=== PATIENT | female | born 1955 | race African-American/Black ===

== ENCOUNTER → 2016-09-23 | Outpatient (CLI) | payer MEDICARE, OTHER ==
[2016-03-08 12:30] VITALS: BP 134/74
[~2016-09-23] MED LIST: AMLO10TA2 PO; HYDR-2678 PO; INSU100C4 SQ; LORA0.5T96 PO; OMEP40CA5 PO; PROAIR HFA8.5 GM IH; RANI150T2 PO; SIMV10TA3 PO
--- NOTE | 2016-09-23 17:47 | RAD ---
EXAM: DIGITAL SCREEN BILAT W/CAD HISTORY: Routine Screening. COMPARISON: None available Standard mammographic views are obtained of the bilateral breasts. This study was interpreted with the benefit of Computerized Aided Detection (CAD). FINDINGS: The breast parenchyma Is heterogenously dense, which could reduce sensitivity of mammography. Breast parenchyma level III.. There is no definite spiculated mass identified. There are a few scattered calcifications. IMPRESSION: No definite new suspicious mass. BI-RADS CATEGORY: 2 BENIGN FINDING RECOMMENDED FOLLOW-UP: 12M 12 MONTH FOLLOW-UP PQRS compliance statement: Patient information was entered into a reminder system with a target due date for the next mammogram. Mammography is a sensitive method for finding small breast cancers, but it does not detect them all and is not a substitute for careful clinical examination. A negative mammogram does not negate a clinically suspicious finding and should not result in delay in biopsying a clinically suspicious abnormality. "Our facility is accredited by the [employer] Mammography Program."
== END | disposition home or self-care (01) ==
LOC: MAMMO 15:02
PROVIDERS: ATTEND Family Medicine
DX: Z12.31 Encounter for screening mammogram for malignant neoplasm of breast (principal)
CPT/HCPCS: G0202; 77067

== ENCOUNTER → 2017-10-17 | Outpatient (CLI) | payer MEDICARE, OTHER | END | disposition home or self-care (01) | LOC: MAMMO 14:27 | DX: Z12.31 Encounter for screening mammogram for malignant neoplasm of breast (principal) | CPT/HCPCS: 77063; 77067 ==

== ENCOUNTER 2018-07-16 00:03 | Inpatient (IN) | payer MEDICARE, OTHER ==
[~2018-07-16] VITALS: Ht 162.6 cm; Wt 45.4 kg
[~2018-07-16 00:03] MED LIST changes: -AMLO10TA2 PO; +AMLO10TA6 PO; +AMLO5TAB7 PO; +HYDR-2761 PO; +LEVO500T59 PO; +METR500T PO; +RANI150C PO
[2018-07-16] MEDS ORDERED: LABETALOL 20 MG/4 ML DISP.SYRIN. IVP ONE (00:30)
--- NOTE | 2018-07-16 00:47 | PHYS DOC ---
Past Medical History Past Medical History: Asthma, Diabetes-Type II, GERD, High Cholesterol, Hypertension, Other Additional Past Medical Histor: brain aneurysm Past Surgical History: Cholecystectomy, Hysterectomy, Other Additional Past Surgical Histo: perforated ulcer Alcohol Use: None Drug Use: None Adult General Chief Complaint Chief Complaint: SEIZURE HPI HPI Patient is a 62-year-old female who presents via EMS with report of having had 2 seizure episodes prior to arrival. Medics indicate that patient did have one seizure during their evaluation and patient was given 5 of Versed IV by medics while in route. Patient's seizure resolved after Versed and they state that patient has been postictal since. Additional history is limited due to post ictal state. Review of Systems Review of Systems Neurologic: Positive seizure activity[] Unable to fully assess review of systems due to postictal state. Current Medications Current Medications Current Medications Medications (Trade) Dose Ordered Sig/Zee Start Time Stop Time Status Last Admin Dose Admin Labetalol HCl (Normodyne Iv Push) 10 mg 1X ONCE 07/16/18 00:30 07/16/18 00:31 DC 07/16/18 00:29 10 MG Lorazepam (Ativan) 2 mg 1X ONCE 07/16/18 00:30 07/16/18 00:31 DC 07/16/18 00:24 2 MG Morphine Sulfate (Morphine Sulfate) 4 mg STK-MED ONCE 07/16/18 02:01 07/16/18 02:02 DC Ondansetron HCl (Zofran) 4 mg PRN Q8HRS PRN 07/16/18 03:15 07/17/18 03:14 Sodium Chloride 1,000 ml @ 125 mls/hr Q8H 07/16/18 03:04 07/17/18 03:03 Allergies Allergies Allergies Coded Allergies Type Severity Reaction Last Updated Verified Penicillins Allergy Intermediate N/V ITCH 03/30/18 Yes I S O L A T I O N *CONTACT* Allergy Unknown 03/29/18 Yes Physical Exam Physical Exam Constitutional: The patient with sonorous respirations, unresponsive to verbal stimuli, no acute distress. [] HENT: Normocephalic, atraumatic, bilateral external ears normal, oropharynx moist, no oral exudates, nose normal. [] Eyes: PERRLA, EOMI, conjunctiva normal, no discharge. [] Neck: Supple, no JVD or lymphadenopathy, no stridor. [] Cardiovascular: Mildly tachycardic rate with regular rhythm[] Lungs & Thorax: Bilateral breath sounds clear to auscultation [] Abdomen: Bowel sounds normal, soft, no tenderness. [] Skin: Warm, dry, no erythema, no rash. [] Extremities: No tenderness, no cyanosis, no clubbing. [] Neurologic: Postictal, unable to fully assess neurological status. [] Current Patient Data Vital Signs Vital Signs Date Time Temp Pulse Resp B/P (MAP) Pulse Ox O2 Delivery O2 Flow Rate FiO2 07/16/18 02:16 97 Nasal Cannula 3.5 07/16/18 02:15 74 20 07/16/18 00:29 156/93 07/16/18 00:04 98.3 98.3 Lab Values Laboratory Tests Test 07/16/18 00:30 07/16/18 00:45 07/16/18 01:45 White Blood Count 8.2 x10^3/uL (4.0-11.0) Red Blood Count 5.16 x10^6/uL (3.50-5.40) Hemoglobin 12.6 g/dL (12.0-15.5) Hematocrit 40.6 % (36.0-47.0) Mean Corpuscular Volume 79 fL (79-100) Mean Corpuscular Hemoglobin 24 pg (25-35) L Mean Corpuscular Hemoglobin Concent 31 g/dL (31-37) Red Cell Distribution Width 20.7 % (11.5-14.5) H Platelet Count 158 x10^3/uL (140-400) Neutrophils (%) (Auto) 42 % (31-73) Lymphocytes (%) (Auto) 46 % (24-48) Monocytes (%) (Auto) 9 % (0-9) Eosinophils (%) (Auto) 1 % (0-3) Basophils (%) (Auto) 1 % (0-3) Neutrophils # (Auto) 3.5 x10^3uL (1.8-7.7) Lymphocytes # (Auto) 3.8 x10^3/uL (1.0-4.8) Monocytes # (Auto) 0.8 x10^3/uL (0.0-1.1) Eosinophils # (Auto) 0.1 x10^3/uL (0.0-0.7) Basophils # (Auto) 0.1 x10^3/uL (0.0-0.2) Platelet Estimate Adequate (ADEQUATE) Polychromasia Slight Hypochromasia Slight Microcytosis Slight Prothrombin Time 14.3 SEC (11.7-14.0) H Prothrombin Time INR 1.1 (0.8-1.1) Sodium Level 142 mmol/L (136-145) Potassium Level 4.3 mmol/L (3.5-5.1) Chloride Level 105 mmol/L (98-107) Carbon Dioxide Level 11 mmol/L (21-32) *L Anion Gap 26 (6-14) H Blood Urea Nitrogen 32 mg/dL (7-20) H Creatinine 1.8 mg/dL (0.6-1.0) H Estimated GFR (Cockcroft-Gault) 34.3 BUN/Creatinine Ratio 18 (6-20) Glucose Level 169 mg/dL (70-99) H Lactic Acid Level 16.7 mmol/L (0.4-2.0) *H Calcium Level 9.7 mg/dL (8.5-10.1) Total Bilirubin 0.1 mg/dL (0.2-1.0) L Aspartate Amino Transferase (AST) 19 U/L (15-37) Alanine Aminotransferase (ALT) 15 U/L (14-59) Alkaline Phosphatase 104 U/L (46-116) Total Protein 8.4 g/dL (6.4-8.2) H Albumin 3.7 g/dL (3.4-5.0) Albumin/Globulin Ratio 0.8 (1.0-1.7) L Urine Collection Type U cath Urine Color Yellow Urine Clarity Clear Urine pH 6.0 Urine Specific [place] 1.020 Urine Protein 100 mg/dL (NEG-TRACE) Urine Glucose (UA) Negative mg/dL (NEG) Urine Ketones (Stick) Negative mg/dL (NEG) Urine Blood Trace (NEG) Urine Nitrite Negative (NEG) Urine Bilirubin Negative (NEG) Urine Urobilinogen Dipstick 0.2 mg/dL (0.2 mg/dL) Urine Leukocyte Esterase Negative (NEG) Urine RBC 1-2 /HPF (0-2) Urine WBC 1-4 /HPF (0-4) Urine Squamous Epithelial Cells Few /LPF Urine Bacteria Few /HPF (0-FEW) Urine Hyaline Casts Few /HPF Urine Opiates Screen Neg (NEG) Urine Methadone Screen Neg (NEG) Urine Barbiturates Neg (NEG) Urine Phencyclidine Screen Neg (NEG) Urine Amphetamine/Methamphetamine Neg (NEG) Urine Benzodiazepines Screen Neg (NEG) Urine Cocaine Screen Pos (NEG) Urine Cannabinoids Screen Neg (NEG) Urine Ethyl Alcohol Neg (NEG) O2 Saturation 92 % (92-99) Arterial Blood pH 7.16 (7.35-7.45) *L Arterial Blood pCO2 at Patient Temp 43 mmHg (35-46) Arterial Blood pO2 at Patient Temp 79 mmHg (65-108) Arterial Blood HCO3 15 mmol/L (21-28) L Arterial Blood Base Excess -13 mmol/L (-3-3) L FiO2 34 Laboratory Tests 07/16/18 00:30 Laboratory Tests 07/16/18 00:30 EKG EKG [] Radiology/Procedures Radiology/Procedures [] Impressions: PROCEDURE: CT HEAD WO CONTRAST Examination: CT HEAD WO CONTRAST History: seizure Comparison/Correlation: 12/30/2015 CT head without contrast Findings: Axial images of the head were obtained without contrast. Atrophy is present. Chronic ischemic changes white matter is present and this is greatest involving the high left frontoparietal deep white matter. Right frontal craniotomy defect is present. Radiopaque density is present in the suprasellar region and appears represent aneurysm clip or other artifact. Correlate with history of intervention. Postoperative artifact is noted superficial to the right temporal bone and lateral aspect of the right orbit. Impression: No intracranial hemorrhage. No acute process definitely seen. Postoperative findings. Electronically signed by: Augustine Boothe MD (07/16/2018 1:29 AM) [facility] Course & Med Decision Making Course & Med Decision Making Pertinent Labs and Imaging studies reviewed. (See chart for details) [] Dragon Disclaimer Dragon Disclaimer This electronic medical record was generated, in whole or in part, using a voice recognition dictation system. Departure Departure Impression: Primary Impression: New onset seizure Disposition: ADMITTED INPATIENT Condition: IMPROVED (Dr. Crystal) Referrals: KRISTINE MELENDEZ MD (PCP) JAYLA WEINER Jr., DO Jul 16, 2018 00:47
[2018-07-16 01:02] LABS: PROTHROMBIN TIME PATIENT 14.3 SEC (11.7-14.0)
[2018-07-16 01:09] LABS: BASO # 0.1 x10^3/uL (0.0-0.2); BASO % 1 % (0-3); EOS # 0.1 x10^3/uL (0.0-0.7); EOS % 1 % (0-3); HEMATOCRIT 40.6 % (36.0-47.0); HEMOGLOBIN 12.6 g/dL (12.0-15.5); LYMPH # 3.8 x10^3/uL (1.0-4.8); LYMPH % 46 % (24-48); MEAN CORPUSCULAR HEMOGLOBIN 24 pg (25-35); MEAN CORPUSCULAR HGB CONC 31 g/dL (31-37); MEAN CORPUSCULAR VOLUME 79 fL (79-100); MONO # 0.8 x10^3/uL (0.0-1.1); MONO % 9 % (0-9); NEUT # 3.5 x10^3uL (1.8-7.7); NEUT % 42 % (31-73); PLATELET COUNT 158 x10^3/uL (140-400); RED BLOOD COUNT 5.16 x10^6/uL (3.50-5.40); RED CELL DISTRIBUTION WIDTH 20.7 % (11.5-14.5); WHITE BLOOD COUNT 8.2 x10^3/uL (4.0-11.0)
[2018-07-16 01:10] LABS: ALBUMIN 3.7 g/dL (3.4-5.0); ALBUMIN/GLOBULIN RATIO 0.8 (1.0-1.7); CALCIUM 9.7 mg/dL (8.5-10.1); CREATININE 1.8 mg/dL (0.6-1.0); GFR 34.3; POTASSIUM 4.3 mmol/L (3.5-5.1); TOTAL BILIRUBIN 0.1 mg/dL (0.2-1.0); TOTAL PROTEIN 8.4 g/dL (6.4-8.2)
--- NOTE | 2018-07-16 01:33 | RAD ---
Examination: CT HEAD WO CONTRAST History: seizure Comparison/Correlation: 12/30/2015 CT head without contrast Findings: Axial images of the head were obtained without contrast. Atrophy is present. Chronic ischemic changes white matter is present and this is greatest involving the high left frontoparietal deep white matter. Right frontal craniotomy defect is present. Radiopaque density is present in the suprasellar region and appears represent aneurysm clip or other artifact. Correlate with history of intervention. Postoperative artifact is noted superficial to the right temporal bone and lateral aspect of the right orbit. Impression: No intracranial hemorrhage. No acute process definitely seen. Postoperative findings. Electronically signed by: Augustine Boothe MD (07/16/2018 1:29 AM) [facility]
[2018-07-16 01:57] LABS: BARBITURATES NEG (NEG); BENZODIAZEPINES NEG (NEG); CANNABINOIDS NEG (NEG); COCAINE POS (NEG); METHADONE NEG (NEG); OPIATES NEG (NEG); PHENCYCLIDINE NEG (NEG)
[2018-07-16 02:01] LABS: BASE EXCESS ABG -13 mmol/L (-3-3); HCO3 ABG 15 mmol/L (21-28); PCO2 ABG 43 mmHg (35-46); PO2 ABG 79 mmHg (65-108); SAT O2 ABG 92 % (92-99)
[2018-07-16] MEDS ORDERED: MORPHINE SULFATE 4 MG/ML VIAL. ONE (02:01)
[2018-07-16 02:02] LABS: FIO2 ABG 34
[2018-07-16 02:06] LABS: BILIRUBIN,URINE NEGATIVE (NEG); CLARITY,URINE CLEAR; COLOR,URINE YELLOW; NITRITE,URINE NEGATIVE (NEG); PROTEIN,URINE 100 mg/dL (NEG-TRACE); UROBILINOGEN,URINE 0.2 mg/dL (0.2 mg/dL)
[2018-07-16 02:15] LABS: SQUAMOUS EPITHELIAL CELL,UR FEW /LPF
[2018-07-16 02:16] LABS: AMPHETAMINE/METHAMPHETAMINE NEG (NEG); BACTERIA,URINE FEW /HPF (0-FEW); HYALINE CASTS, URINE FEW /HPF
--- NOTE | 2018-07-16 02:34 | EKG ---
[facility] [address] [place] [address] Test Date: 2018-07-16 Test Time: 00:30:38 Pat Name: EBONI PACHECO Department: Room: Gender: F Program Control Analyst: : [id number] Requested By: JAYLA WEINER Order Number: [id number] Reading MD: Measurements Intervals [place] Rate: 78 P: 20 GA: 148 QRS: 26 QRSD: 86 T: 47 QT: 398 QTc: 457 Interpretive Statements SINUS RHYTHM LEFT ATRIAL ABNORMALITY QRS(T) CONTOUR ABNORMALITY CONSIDER ANTEROLATERAL MYOCARDIAL DAMAGE ST & T ABNORMALITY, CONSIDER RECENT INFERIOR MYOCARDIAL OR PERICARDIAL DAMAGE ABNORMAL ECG RI6.01 No previous ECG available for comparison
[2018-07-16] MEDS ORDERED: ONDANSETRON PF 4 MG/2 ML VIAL. IV PRN (03:15)
[2018-07-16] MEDS ORDERED: levETIRAcetam 1,000 MG in IV DEXTROSE 5% 100ML 100 ML IV ONE (03:30)
[2018-07-16 03:47] LABS: PLT ESTIMATE ADEQUATE (ADEQUATE)
[2018-07-16 03:48] LABS: HYPOCHROMIA SLIGHT; MICROCYTOSIS SLIGHT; POLYCHROMASIA SLIGHT
[2018-07-16] MEDS ORDERED: INFLUENZA VAX SCREEN BY RX. MC PRN (05:15)
[2018-07-16] MEDS: IV NORMAL SALINE 1000ML BAG 1,000 ML IV SCH ×3 (05:54→15:15)
[2018-07-16 07:30] VITALS: BP 142/72
--- NOTE | 2018-07-16 07:51 | RAD ---
AP chest x-ray COMPARISON: Chest x-ray March 26, 2018 and priors. HISTORY: Seizures. FINDINGS: Mild cardiomegaly is stable. Tortuosity versus aneurysmal dilation of the thoracic aorta similar to prior x-rays for several years. Right lower lobe reticulonodular densities could indicate atelectasis or early pneumonic infiltrate although the bandlike density of the basilar lower lobe on prior x-rays from March 26, 2018 has improved and these reticulonodular densities could represent mild residual areas of scarring instead. Left lung clear. A pneumothorax or pleural effusions. Bones unremarkable. IMPRESSION: Mild reticulonodular densities at the right lower lobe as described above. Otherwise stable exam. Electronically signed by: Attila Fox MD (07/16/2018 7:47 AM) [facility]
[2018-07-16 10:21] VITALS: BP 141/68
[2018-07-16] MEDS ORDERED: HYDROcodone/APAP 5/325MG 1 TAB TABLET PO PRN (13:00)
[2018-07-16] MEDS: amLODIPine BESYLATE 5 MG TABLET PO SCH (13:00)
[2018-07-16] MEDS ORDERED: NON FORMULARY ITEM (Albuterol Sulfate (Proair Hfa Inhaler) 2 PUFF) IH SCH (13:00)
[2018-07-16] MEDS ORDERED: ALBUTEROL SULFATE 2.5 MG/3 ML NEBU. NEB PRN (13:15)
[2018-07-16 14:05] LABS: ALBUMIN 3.2 g/dL (3.4-5.0); ALBUMIN/GLOBULIN RATIO 0.9 (1.0-1.7); CALCIUM 8.5 mg/dL (8.5-10.1); CREATININE 1.3 mg/dL (0.6-1.0); GFR 49.9; POTASSIUM 4.9 mmol/L (3.5-5.1); TOTAL BILIRUBIN 0.2 mg/dL (0.2-1.0); TOTAL PROTEIN 6.9 g/dL (6.4-8.2)
--- NOTE | 2018-07-16 14:11 | PDOC2 ---
NEUROLOGY CONSULT Date of Admission Date of Admission DATE: 07/16/18 TIME: 13:51 Reason for Consult Reason for Consult: IMPRESSION: Toxic encephalopathy, Cocaine. Metabolic encephalopathy. Cocaine use/abuse likely. Lactic acidosis. Seizures, provoked. Renal failure. Hx of brain aneurysm? DM. HTN. HLD. Tremor like movements. Cocaine positive. RECOMMENDATIONS/PLAN: Treat Cocaine toxicity. Vimpat 100 mg IV q12h. Vit B1 100 mg IV daily. Brain MRI/MRA w/o contrast. No contrast due to elevated creatinine. LP maybe considered after MR studies if no other abnormality found. EEG. Avoid sedatives at the present time. Treat medical diseases. Transfer to ICU if condition worse. HISTORY OF THE PRESENT ILLNESS: This is a 62-year-old female who was brought in via EMS with report of having had 2 seizure episodes prior to arrival. EMS indicated that patient had one seizure during their evaluation and patient was given 5 of Versed IV by medics while in route. Patient's seizure resolved after Versed and they stated that patient had been in postictal since. Patient was unable to provide information. PAST MEDICAL HISTORY: Asthma, Diabetes-Type II, GERD, High Cholesterol, Hypertension, brain aneurysm PAST SURGERY HISTORY: Cholecystectomy, Hysterectomy, perforated ulcer. ALLERGY: Unknown MEDICATIONS: Refer to [facility] FAMILY HISTORY: Non contributory. SOCIAL HISTORY: Unknown. REVIEW OF SYSTEMS: Constitutional: No cachexia. Head: No traumatic brain or head injury. Skin: No edema, or rash. Ear: No infection. Eyes: No vision loss or color blindness. Nose: No bleeding or purulent discharges. Hearing: No hearing decrease. Neck: No injury. Cardiac: HTN. Pulmonary: No COPD. GI: GERD. Urinary/genital: UTI. Endocrinologic: Diabetes Mellitus. Skeletomuscular: No muscular atrophy, deformity. Neurological: see HP. Psychiatric: Denies drug use/abuse. Otherwise, not [id number] review of systems. PHYSICAL EXAMINATION: General appearance is in subacute distress. HEENT: Normocephalic and nontraumatic. Eyes, nose, ears, and throat are unremarkable. Neck is supple. No lymphadenopathy. No crepitus. Cardiovascular: S1, S2, regular rate and rhythm. Pulmonary: Clear to auscultation bilaterally. Abdomen: Bowel sounds are positive. Extremities: No rash, lesions, or edema. No restriction of range of motion NEUROLOGICAL EXAMINATION: Unresponsive. Not oriented to time, place and person. PERRL. EOMI not elicited due to not follow commands. CN: no focal findings. Muscle tone: fluctuated. Muscle strength: Movements noted to stimuli. DTR: 2- Plantar reflex: Neutral response bilaterally Gait: Unable to walk in this mentation. Sensory exam: Withdraw response noted. No cerebellar signs elicited. F-T-N test accurate. Current Medications Current Medications Current Medications Labetalol HCl (Normodyne Iv Push) 10 mg 1X ONCE IVP Last administered on at 00:29; Start 07/16/18 at 00:30; Stop 07/16/18 at 00:31; Status DC Lorazepam (Ativan) 2 mg 1X ONCE IV Last administered on 07/16/18at 00:24; Start 07/16/18 at 00:30; Stop 07/16/18 at 00:31; Status DC Morphine Sulfate (Morphine Sulfate) 4 mg STK-MED ONCE .ROUTE ; Start 07/16/18 at 02:01; Stop 07/16/18 at 02:02; Status DC Levetiracetam 1000 mg/Dextrose 110 ml @ 440 mls/hr 1X ONCE IV Last administered on 07/16/18at 03:02; Start 07/16/18 at 03:30; Stop 07/16/18 at 03:45 ; Status DC Ondansetron HCl (Zofran) 4 mg PRN Q8HRS PRN IV NAUSEA/VOMITING 1ST CHOICE; Start 07/16/18 at 03:15; Stop 07/17/18 at 03:14 Sodium Chloride 1,000 ml @ 125 mls/hr Q8H IV Last administered on 07/16/18at 05 :54; Start 07/16/18 at 03:04; Stop 07/17/18 at 03:03 Lorazepam (Ativan) 2 mg PRN Q4HRS PRN IV seizure; Start 07/16/18 at 04:00 Info (FLU VACCINE SCREEN per RX) 1 each PRN DAILY PRN [facility] UNABLE TO RESPOND; Start 07/16/18 at 05:15 Amlodipine Besylate (Norvasc) 5 mg DAILY PO ; Start 07/16/18 at 13:00 Acetaminophen/ Hydrocodone Bitart (Lortab 5/325) 1 tab PRN Q6HRS PRN PO PAIN; Start 07/16/18 at 13:00 Simvastatin (Zocor) 10 mg HS PO ; Start 07/16/18 at 21:00 Non-Formulary Medication (Albuterol Sulfate (Proair Hfa Inhaler)) 2 puff PRN Q4- 6HRS IH ; Start 07/16/18 at 13:00; Status UNV Famotidine (Pepcid) 20 mg HS PO ; Start 07/16/18 at 21:00 Albuterol Sulfate (Ventolin Neb Soln) 2.5 mg PRN Q4HRS PRN NEB SHORTNESS OF BREATH; Start 07/16/18 at 13:15 Doxycycline Hyclate 100 mg/ Dextrose 100 ml @ 50 mls/hr Q12HR IV ; Start at 14:00 Active Scripts Active Hydrocodone-Apap 5-325 (Hydrocodone Bit/Acetaminophen) 1 Each Tablet 1 Tab PO PRN Q4HRS PRN Flagyl (Metronidazole) 500 Mg Tablet 500 Mg PO Q12HR 5 Days Levaquin (Levofloxacin) 500 Mg Tablet 500 Mg PO DAILY06 5 Days Amlodipine Besylate 5 Mg Tablet 5 Mg PO DAILY Reported Ranitidine Hcl 150 Mg Capsule 1 Cap PO BID Ativan (Lorazepam) 0.5 Mg Tablet 0.5 Mg PO PRN PRN Lortab 5-325 mg Tablet (Hydrocodone/Acetaminophen) 1 Each Tablet 1 Tab PO PRN Q6HRS PRN Simvastatin 10 Mg Tablet 10 Mg PO HS Proair Hfa Inhaler (Albuterol Sulfate) 8.5 Gm Hfa.aer.ad 2 Puff IH PRN Q4-6HRS Allergies Allergies: Allergies Coded Allergies Type Severity Reaction Last Updated Verified Penicillins Allergy Intermediate N/V ITCH 03/30/18 Yes I S O L A T I O N *CONTACT* Allergy Unknown 03/29/18 Yes ROS Review of System The patient denies any associated fevers, chills, headache, ear pain, rhinorrhea , sore throat, stiff neck, productive cough, chest pain, shortness of breath, back or flank pain, abdominal pain, nausea, vomiting, diarrhea, constipation, dysuria, rash, numbness, weakness, tingling, incontinence, difficulty ambulating, or diaphoresis. Physical Exam Physical Exam General: Well developed, well nourished, no acute distress, well appearing HEENT: Pupils equally round and reactive to light, EOMI, no discharge, normal conjunctiva Neck: Supple, no nuchal rigidity, no JVD, trachea midline, no tenderness Cardiac: RRR, no murmurs, no gallops, no rubs Chest/Lungs: CTAB, no wheeze, no rhonchi, no crackles Abdomen: soft, non-distended, no guarding, no peritoneal signs, non-tender Back: No tenderness Extremities: no edema, pulses intact, non-tender,capillary refill <3 sec bilateral upper and lower extremities, Neuro: Alert and oriented x 4, no focal deficits, normal speech Vitals Vitals: Vital Signs Date Time Temp Pulse Resp B/P (MAP) Pulse Ox O2 Delivery O2 Flow Rate FiO2 07/16/18 10:21 98.5 66 18 141/68 (92) 98 Nasal Cannula 2.0 98.5 Labs Labs Laboratory Tests Test 07/16/18 00:30 07/16/18 00:45 07/16/18 01:45 07/16/18 05:45 White Blood Count 8.2 x10^3/uL (4.0-11.0) Red Blood Count 5.16 x10^6/uL (3.50-5.40) Hemoglobin 12.6 g/dL (12.0-15.5) Hematocrit 40.6 % (36.0-47.0) Mean Corpuscular Volume 79 fL (79-100) Mean Corpuscular Hemoglobin 24 pg (25-35) Mean Corpuscular Hemoglobin Concent 31 g/dL (31-37) Red Cell Distribution Width 20.7 % (11.5-14.5) Platelet Count 158 x10^3/uL (140-400) Neutrophils (%) (Auto) 42 % (31-73) Lymphocytes (%) (Auto) 46 % (24-48) Monocytes (%) (Auto) 9 % (0-9) Eosinophils (%) (Auto) 1 % (0-3) Basophils (%) (Auto) 1 % (0-3) Neutrophils # (Auto) 3.5 x10^3uL (1.8-7.7) Lymphocytes # (Auto) 3.8 x10^3/uL (1.0-4.8) Monocytes # (Auto) 0.8 x10^3/uL (0.0-1.1) Eosinophils # (Auto) 0.1 x10^3/uL (0.0-0.7) Basophils # (Auto) 0.1 x10^3/uL (0.0-0.2) Platelet Estimate Adequate (ADEQUATE) Polychromasia Slight Hypochromasia Slight Microcytosis Slight Prothrombin Time 14.3 SEC (11.7-14.0) Prothromb Time International Ratio 1.1 (0.8-1.1) Sodium Level 142 mmol/L (136-145) Potassium Level 4.3 mmol/L (3.5-5.1) Chloride Level 105 mmol/L (98-107) Carbon Dioxide Level 11 mmol/L (21-32) Anion Gap 26 (6-14) Blood Urea Nitrogen 32 mg/dL (7-20) Creatinine 1.8 mg/dL (0.6-1.0) Estimated GFR (Cockcroft-Gault) 34.3 BUN/Creatinine Ratio 18 (6-20) Glucose Level 169 mg/dL (70-99) Lactic Acid Level 16.7 mmol/L (0.4-2.0) 0.8 mmol/L (0.4-2.0) Calcium Level 9.7 mg/dL (8.5-10.1) Total Bilirubin 0.1 mg/dL (0.2-1.0) Aspartate Amino Transf (AST/SGOT) 19 U/L (15-37) Alanine Aminotransferase (ALT/SGPT) 15 U/L (14-59) Alkaline Phosphatase 104 U/L (46-116) Total Protein 8.4 g/dL (6.4-8.2) Albumin 3.7 g/dL (3.4-5.0) Albumin/Globulin Ratio 0.8 (1.0-1.7) Urine Collection Type U cath Urine Color Yellow Urine Clarity Clear Urine pH 6.0 Urine Specific [place] 1.020 Urine Protein 100 mg/dL (NEG-TRACE) Urine Glucose (UA) Negative mg/dL (NEG) Urine Ketones (Stick) Negative mg/dL (NEG) Urine Blood Trace (NEG) Urine Nitrite Negative (NEG) Urine Bilirubin Negative (NEG) Urine Urobilinogen Dipstick 0.2 mg/dL (0.2 mg/dL) Urine Leukocyte Esterase Negative (NEG) Urine RBC 1-2 /HPF (0-2) Urine WBC 1-4 /HPF (0-4) Urine Squamous Epithelial Cells Few /LPF Urine Bacteria Few /HPF (0-FEW) Urine Hyaline Casts Few /HPF Urine Opiates Screen Neg (NEG) Urine Methadone Screen Neg (NEG) Urine Barbiturates Neg (NEG) Urine Phencyclidine Screen Neg (NEG) Urine Amphetamine/Methamphetamine Neg (NEG) Urine Benzodiazepines Screen Neg (NEG) Urine Cocaine Screen Pos (NEG) Urine Cannabinoids Screen Neg (NEG) Urine Ethyl Alcohol Neg (NEG) O2 Saturation 92 % (92-99) Arterial Blood pH 7.16 (7.35-7.45) Arterial Blood pCO2 at Patient Temp 43 mmHg (35-46) Arterial Blood pO2 at Patient Temp 79 mmHg (65-108) Arterial Blood HCO3 15 mmol/L (21-28) Arterial Blood Base Excess -13 mmol/L (-3-3) FiO2 34 Test 07/16/18 07:31 07/16/18 11:59 Glucose (Fingerstick) 111 mg/dL (70-99) 79 mg/dL (70-99) Laboratory Tests Test 07/16/18 00:30 07/16/18 00:45 07/16/18 01:45 07/16/18 05:45 White Blood Count 8.2 x10^3/uL (4.0-11.0) Red Blood Count 5.16 x10^6/uL (3.50-5.40) Hemoglobin 12.6 g/dL (12.0-15.5) Hematocrit 40.6 % (36.0-47.0) Mean Corpuscular Volume 79 fL (79-100) Mean Corpuscular Hemoglobin 24 pg (25-35) Mean Corpuscular Hemoglobin Concent 31 g/dL (31-37) Red Cell Distribution Width 20.7 % (11.5-14.5) Platelet Count 158 x10^3/uL (140-400) Neutrophils (%) (Auto) 42 % (31-73) Lymphocytes (%) (Auto) 46 % (24-48) Monocytes (%) (Auto) 9 % (0-9) Eosinophils (%) (Auto) 1 % (0-3) Basophils (%) (Auto) 1 % (0-3) Neutrophils # (Auto) 3.5 x10^3uL (1.8-7.7) Lymphocytes # (Auto) 3.8 x10^3/uL (1.0-4.8) Monocytes # (Auto) 0.8 x10^3/uL (0.0-1.1) Eosinophils # (Auto) 0.1 x10^3/uL (0.0-0.7) Basophils # (Auto) 0.1 x10^3/uL (0.0-0.2) Platelet Estimate Adequate (ADEQUATE) Polychromasia Slight Hypochromasia Slight Microcytosis Slight Prothrombin Time 14.3 SEC (11.7-14.0) Prothromb Time International Ratio 1.1 (0.8-1.1) Sodium Level 142 mmol/L (136-145) Potassium Level 4.3 mmol/L (3.5-5.1) Chloride Level 105 mmol/L (98-107) Carbon Dioxide Level 11 mmol/L (21-32) Anion Gap 26 (6-14) Blood Urea Nitrogen 32 mg/dL (7-20) Creatinine 1.8 mg/dL (0.6-1.0) Estimated GFR (Cockcroft-Gault) 34.3 BUN/Creatinine Ratio 18 (6-20) Glucose Level 169 mg/dL (70-99) Lactic Acid Level 16.7 mmol/L (0.4-2.0) 0.8 mmol/L (0.4-2.0) Calcium Level 9.7 mg/dL (8.5-10.1) Total Bilirubin 0.1 mg/dL (0.2-1.0) Aspartate Amino Transf (AST/SGOT) 19 U/L (15-37) Alanine Aminotransferase (ALT/SGPT) 15 U/L (14-59) Alkaline Phosphatase 104 U/L (46-116) Total Protein 8.4 g/dL (6.4-8.2) Albumin 3.7 g/dL (3.4-5.0) Albumin/Globulin Ratio 0.8 (1.0-1.7) Urine Collection Type U cath Urine Color Yellow Urine Clarity Clear Urine pH 6.0 Urine Specific [place] 1.020 Urine Protein 100 mg/dL (NEG-TRACE) Urine Glucose (UA) Negative mg/dL (NEG) Urine Ketones (Stick) Negative mg/dL (NEG) Urine Blood Trace (NEG) Urine Nitrite Negative (NEG) Urine Bilirubin Negative (NEG) Urine Urobilinogen Dipstick 0.2 mg/dL (0.2 mg/dL) Urine Leukocyte Esterase Negative (NEG) Urine RBC 1-2 /HPF (0-2) Urine WBC 1-4 /HPF (0-4) Urine Squamous Epithelial Cells Few /LPF Urine Bacteria Few /HPF (0-FEW) Urine Hyaline Casts Few /HPF Urine Opiates Screen Neg (NEG) Urine Methadone Screen Neg (NEG) Urine Barbiturates Neg (NEG) Urine Phencyclidine Screen Neg (NEG) Urine Amphetamine/Methamphetamine Neg (NEG) Urine Benzodiazepines Screen Neg (NEG) Urine Cocaine Screen Pos (NEG) Urine Cannabinoids Screen Neg (NEG) Urine Ethyl Alcohol Neg (NEG) O2 Saturation 92 % (92-99) Arterial Blood pH 7.16 (7.35-7.45) Arterial Blood pCO2 at Patient Temp 43 mmHg (35-46) Arterial Blood pO2 at Patient Temp 79 mmHg (65-108) Arterial Blood HCO3 15 mmol/L (21-28) Arterial Blood Base Excess -13 mmol/L (-3-3) FiO2 34 Test 07/16/18 07:31 07/16/18 11:59 Glucose (Fingerstick) 111 mg/dL (70-99) 79 mg/dL (70-99) PETER TORRES MD Jul 16, 2018 14:11
[2018-07-16 14:17] LABS: BASE EXCESS ABG -3 mmol/L (-3-3); HCO3 ABG 22 mmol/L (21-28); PCO2 ABG 39 mmHg (35-46); PO2 ABG 104 mmHg (65-108); SAT O2 ABG 97 % (92-99)
[2018-07-16 14:18] LABS: FIO2 ABG 28
[2018-07-16 14:40] LABS: SALIC < 2.8 mg/dL (2.8-20.0)
[2018-07-16 14:48] LABS: ACETAMIN < 2 mcg/ml (10-30)
[2018-07-16] MEDS: THIAMINE INJ 100 MG in IV DEXTROSE 5% 50 ML IV SCH (15:08)
[2018-07-16] MEDS: DOXYCYCLINE HYCLATE 100 MG in IV DEXTROSE 5% 100ML 100 ML IV SCH ×2 (15:08→20:56)
[2018-07-16 15:42] VITALS: BP 179/79
--- NOTE | 2018-07-16 16:04 | PDOC1 ---
History and Physical History of Present Illness History of Present Illness HPI from ED: Patient is a 62-year-old female who presents via EMS with report of having had 2 seizure episodes prior to arrival. Medics indicate that patient did have one seizure during their evaluation and patient was given 5 of Versed IV by medics while in route. Patient's seizure resolved after Versed and they state that patient has been postictal since. Additional history is limited due to post ictal state. On my exam today she is arouasbale but it is difficult. She is s/p Ativan and Keppra load in the ED. She is noted to have a + cocaine result on her labs but she does not have the hyperadrenergic effects seen with cocaine toxicity. She is noted to have had a HR of 62 in the ED and on my exam. EEG not able to be done today. MRI to be obtained today pending the confirmation of display director of clips. Spoke to poison control and they agree that picture is not c/w cocaine toxicity and do not recc any Esmolol, Versed, etc protocol. She is occasionally htn with relief of this with labetalol. Have repeated abg and ph has normalized and cmp shows improved bicarb and LA wnl x 2 She seems to have pna on imaging so will stat IV Doxycycline Past Medical History Cardiovascular: HTN Pulmonary: Asthma CENTRAL NERVOUS SYSTEM: Other GI: GERD Endocrine: Diabetes Past Surgical History Past Surgical History: Other Family History Family History: No Significant Social History ALCOHOL: none Drugs: None Current Problem List Problem List Problems Medical Problems: (1) New onset seizure Status: Acute Current Medications Current Medications Current Medications Medications (Trade) Dose Ordered Sig/Zee Start Time Stop Time Status Last Admin Dose Admin Acetaminophen/ Hydrocodone Bitart (Lortab 5/325) 1 tab PRN Q6HRS PRN 07/16/18 13:00 Albuterol Sulfate (Ventolin Neb Soln) 2.5 mg PRN Q4HRS PRN 07/16/18 13:15 Amlodipine Besylate (Norvasc) 5 mg DAILY 07/16/18 13:00 Doxycycline Hyclate 100 mg/ Dextrose 100 ml @ 50 mls/hr Q12HR 07/16/18 14:00 07/16/18 15:08 50 MLS/HR Famotidine (Pepcid) 20 mg HS 07/16/18 21:00 Info (FLU VACCINE SCREEN per RX) 1 each PRN DAILY PRN 07/16/18 05:15 Labetalol HCl (Normodyne Iv Push) 10 mg 1X ONCE 07/16/18 00:30 07/16/18 00:31 DC 07/16/18 00:29 10 MG Lacosamide 100 mg/ Dextrose 60 ml @ 120 mls/hr BID 07/16/18 15:00 Levetiracetam 1000 mg/Dextrose 110 ml @ 440 mls/hr 1X ONCE 07/16/18 03:30 07/16/18 03:45 DC 07/16/18 03:02 440 MLS/HR Lorazepam (Ativan) 2 mg PRN Q4HRS PRN 07/16/18 04:00 Morphine Sulfate (Morphine Sulfate) 4 mg STK-MED ONCE 07/16/18 02:01 07/16/18 02:02 DC Non-Formulary Medication (Albuterol Sulfate (Proair Hfa Inhaler)) 2 puff PRN Q4-6HRS 07/16/18 13:00 UNV Ondansetron HCl (Zofran) 4 mg PRN Q8HRS PRN 07/16/18 03:15 07/17/18 03:14 Simvastatin (Zocor) 10 mg HS 07/16/18 21:00 Sodium Chloride 1,000 ml @ 75 mls/hr [id number] 07/16/18 15:15 Thiamine HCl 100 mg/Dextrose 51 ml @ 102 mls/hr DAILY 07/16/18 15:00 07/16/18 15:08 102 MLS/HR Allergies Allergies Allergies Coded Allergies Type Severity Reaction Last Updated Verified Penicillins Allergy Intermediate N/V ITCH 03/30/18 Yes I S O L A T I O N *CONTACT* Allergy Unknown 03/29/18 Yes ROS Review of System CONSTITUTIONAL: No fever or chills EYES: No recent changes SKIN: No rash or itching CARDIOVASCULAR: No chest pain, syncope, palpitations, or edema RESPIRATORY: No SOB or cough GASTROINTESTINAL: No nausea, vomiting or abdominal pain NEUROLOGICAL: No headaches or weakness ENDOCRINE: No cold or heat intolerance GENITOURINARY: No urgency or frequency of urination MUSCULOSKELETAL: No back pain or joint pain LYMPHATICS: No enlarged lymph nodes PSYCHIATRIC: No anxiety or depression Physical Exam Physical Exam GEN.: not easily arousable HEENT: Head is normocephalic, atraumatic NECK: Supple. LUNGS: Clear to auscultation. HEART: RRR, S1, S2 present. Peripheral pulses intact ABDOMEN: Soft, nontender. Positive bowel sounds. EXTREMITIES: Without any cyanosis. NEUROLOGIC: Normal speech, normal tone PSYCHIATRIC: Normal affect, normal mood. SKIN: No ulcerations Vitals Vitals Vital Signs Date Time Temp Pulse Resp B/P (MAP) Pulse Ox O2 Delivery O2 Flow Rate FiO2 07/16/18 15:42 99.4 82 18 179/79 (112) 98 Nasal Cannula 2.0 99.4 Labs Labs Laboratory Tests Test 07/16/18 00:30 07/16/18 00:45 07/16/18 01:45 07/16/18 05:45 White Blood Count 8.2 x10^3/uL (4.0-11.0) Red Blood Count 5.16 x10^6/uL (3.50-5.40) Hemoglobin 12.6 g/dL (12.0-15.5) Hematocrit 40.6 % (36.0-47.0) Mean Corpuscular Volume 79 fL (79-100) Mean Corpuscular Hemoglobin 24 pg (25-35) Mean Corpuscular Hemoglobin Concent 31 g/dL (31-37) Red Cell Distribution Width 20.7 % (11.5-14.5) Platelet Count 158 x10^3/uL (140-400) Neutrophils (%) (Auto) 42 % (31-73) Lymphocytes (%) (Auto) 46 % (24-48) Monocytes (%) (Auto) 9 % (0-9) Eosinophils (%) (Auto) 1 % (0-3) Basophils (%) (Auto) 1 % (0-3) Neutrophils # (Auto) 3.5 x10^3uL (1.8-7.7) Lymphocytes # (Auto) 3.8 x10^3/uL (1.0-4.8) Monocytes # (Auto) 0.8 x10^3/uL (0.0-1.1) Eosinophils # (Auto) 0.1 x10^3/uL (0.0-0.7) Basophils # (Auto) 0.1 x10^3/uL (0.0-0.2) Platelet Estimate Adequate (ADEQUATE) Polychromasia Slight Hypochromasia Slight Microcytosis Slight Prothrombin Time 14.3 SEC (11.7-14.0) Prothromb Time International Ratio 1.1 (0.8-1.1) Sodium Level 142 mmol/L (136-145) Potassium Level 4.3 mmol/L (3.5-5.1) Chloride Level 105 mmol/L (98-107) Carbon Dioxide Level 11 mmol/L (21-32) Anion Gap 26 (6-14) Blood Urea Nitrogen 32 mg/dL (7-20) Creatinine 1.8 mg/dL (0.6-1.0) Estimated GFR (Cockcroft-Gault) 34.3 BUN/Creatinine Ratio 18 (6-20) Glucose Level 169 mg/dL (70-99) Lactic Acid Level 16.7 mmol/L (0.4-2.0) 0.8 mmol/L (0.4-2.0) Calcium Level 9.7 mg/dL (8.5-10.1) Total Bilirubin 0.1 mg/dL (0.2-1.0) Aspartate Amino Transf (AST/SGOT) 19 U/L (15-37) Alanine Aminotransferase (ALT/SGPT) 15 U/L (14-59) Alkaline Phosphatase 104 U/L (46-116) Total Protein 8.4 g/dL (6.4-8.2) Albumin 3.7 g/dL (3.4-5.0) Albumin/Globulin Ratio 0.8 (1.0-1.7) Urine Collection Type U cath Urine Color Yellow Urine Clarity Clear Urine pH 6.0 Urine Specific Slater 1.020 Urine Protein 100 mg/dL (NEG-TRACE) Urine Glucose (UA) Negative mg/dL (NEG) Urine Ketones (Stick) Negative mg/dL (NEG) Urine Blood Trace (NEG) Urine Nitrite Negative (NEG) Urine Bilirubin Negative (NEG) Urine Urobilinogen Dipstick 0.2 mg/dL (0.2 mg/dL) Urine Leukocyte Esterase Negative (NEG) Urine RBC 1-2 /HPF (0-2) Urine WBC 1-4 /HPF (0-4) Urine Squamous Epithelial Cells Few /LPF Urine Bacteria Few /HPF (0-FEW) Urine Hyaline Casts Few /HPF Urine Opiates Screen Neg (NEG) Urine Methadone Screen Neg (NEG) Urine Barbiturates Neg (NEG) Urine Phencyclidine Screen Neg (NEG) Urine Amphetamine/Methamphetamine Neg (NEG) Urine Benzodiazepines Screen Neg (NEG) Urine Cocaine Screen Pos (NEG) Urine Cannabinoids Screen Neg (NEG) Urine Ethyl Alcohol Neg (NEG) O2 Saturation 92 % (92-99) Arterial Blood pH 7.16 (7.35-7.45) Arterial Blood pCO2 at Patient Temp 43 mmHg (35-46) Arterial Blood pO2 at Patient Temp 79 mmHg (65-108) Arterial Blood HCO3 15 mmol/L (21-28) Arterial Blood Base Excess -13 mmol/L (-3-3) FiO2 34 Test 07/16/18 07:31 07/16/18 11:59 07/16/18 13:40 07/16/18 14:05 Glucose (Fingerstick) 111 mg/dL (70-99) 79 mg/dL (70-99) Sodium Level 142 mmol/L (136-145) Potassium Level 4.9 mmol/L (3.5-5.1) Chloride Level 107 mmol/L (98-107) Carbon Dioxide Level 24 mmol/L (21-32) Anion Gap 11 (6-14) Blood Urea Nitrogen 23 mg/dL (7-20) Creatinine 1.3 mg/dL (0.6-1.0) Estimated GFR (Cockcroft-Gault) 49.9 BUN/Creatinine Ratio 18 (6-20) Glucose Level 90 mg/dL (70-99) Lactic Acid Level 0.6 mmol/L (0.4-2.0) Calcium Level 8.5 mg/dL (8.5-10.1) Total Bilirubin 0.2 mg/dL (0.2-1.0) Aspartate Amino Transf (AST/SGOT) 22 U/L (15-37) Alanine Aminotransferase (ALT/SGPT) 21 U/L (14-59) Alkaline Phosphatase 89 U/L (46-116) Total Protein 6.9 g/dL (6.4-8.2) Albumin 3.2 g/dL (3.4-5.0) Albumin/Globulin Ratio 0.9 (1.0-1.7) Salicylates Level < 2.8 mg/dL (2.8-20.0) Salicylate Last Dose Date 07/16/18 Salicylate Last Dose Time 0000 Acetaminophen Level < 2 mcg/ml (10-30) Acetaminophen Last Dose Date 07/16/18 Acetaminophen Last Dose Time 0000 O2 Saturation 97 % (92-99) Arterial Blood pH 7.36 (7.35-7.45) Arterial Blood pCO2 at Patient Temp 39 mmHg (35-46) Arterial Blood pO2 at Patient Temp 104 mmHg (65-108) Arterial Blood HCO3 22 mmol/L (21-28) Arterial Blood Base Excess -3 mmol/L (-3-3) FiO2 28 Laboratory Tests Test 07/16/18 00:30 07/16/18 00:45 07/16/18 01:45 07/16/18 05:45 White Blood Count 8.2 x10^3/uL (4.0-11.0) Red Blood Count 5.16 x10^6/uL (3.50-5.40) Hemoglobin 12.6 g/dL (12.0-15.5) Hematocrit 40.6 % (36.0-47.0) Mean Corpuscular Volume 79 fL (79-100) Mean Corpuscular Hemoglobin 24 pg (25-35) Mean Corpuscular Hemoglobin Concent 31 g/dL (31-37) Red Cell Distribution Width 20.7 % (11.5-14.5) Platelet Count 158 x10^3/uL (140-400) Neutrophils (%) (Auto) 42 % (31-73) Lymphocytes (%) (Auto) 46 % (24-48) Monocytes (%) (Auto) 9 % (0-9) Eosinophils (%) (Auto) 1 % (0-3) Basophils (%) (Auto) 1 % (0-3) Neutrophils # (Auto) 3.5 x10^3uL (1.8-7.7) Lymphocytes # (Auto) 3.8 x10^3/uL (1.0-4.8) Monocytes # (Auto) 0.8 x10^3/uL (0.0-1.1) Eosinophils # (Auto) 0.1 x10^3/uL (0.0-0.7) Basophils # (Auto) 0.1 x10^3/uL (0.0-0.2) Platelet Estimate Adequate (ADEQUATE) Polychromasia Slight Hypochromasia Slight Microcytosis Slight Prothrombin Time 14.3 SEC (11.7-14.0) Prothromb Time International Ratio 1.1 (0.8-1.1) Sodium Level 142 mmol/L (136-145) Potassium Level 4.3 mmol/L (3.5-5.1) Chloride Level 105 mmol/L (98-107) Carbon Dioxide Level 11 mmol/L (21-32) Anion Gap 26 (6-14) Blood Urea Nitrogen 32 mg/dL (7-20) Creatinine 1.8 mg/dL (0.6-1.0) Estimated GFR (Cockcroft-Gault) 34.3 BUN/Creatinine Ratio 18 (6-20) Glucose Level 169 mg/dL (70-99) Lactic Acid Level 16.7 mmol/L (0.4-2.0) 0.8 mmol/L (0.4-2.0) Calcium Level 9.7 mg/dL (8.5-10.1) Total Bilirubin 0.1 mg/dL (0.2-1.0) Aspartate Amino Transf (AST/SGOT) 19 U/L (15-37) Alanine Aminotransferase (ALT/SGPT) 15 U/L (14-59) Alkaline Phosphatase 104 U/L (46-116) Total Protein 8.4 g/dL (6.4-8.2) Albumin 3.7 g/dL (3.4-5.0) Albumin/Globulin Ratio 0.8 (1.0-1.7) Urine Collection Type U cath Urine Color Yellow Urine Clarity Clear Urine pH 6.0 Urine Specific Slater 1.020 Urine Protein 100 mg/dL (NEG-TRACE) Urine Glucose (UA) Negative mg/dL (NEG) Urine Ketones (Stick) Negative mg/dL (NEG) Urine Blood Trace (NEG) Urine Nitrite Negative (NEG) Urine Bilirubin Negative (NEG) Urine Urobilinogen Dipstick 0.2 mg/dL (0.2 mg/dL) Urine Leukocyte Esterase Negative (NEG) Urine RBC 1-2 /HPF (0-2) Urine WBC 1-4 /HPF (0-4) Urine Squamous Epithelial Cells Few /LPF Urine Bacteria Few /HPF (0-FEW) Urine Hyaline Casts Few /HPF Urine Opiates Screen Neg (NEG) Urine Methadone Screen Neg (NEG) Urine Barbiturates Neg (NEG) Urine Phencyclidine Screen Neg (NEG) Urine Amphetamine/Methamphetamine Neg (NEG) Urine Benzodiazepines Screen Neg (NEG) Urine Cocaine Screen Pos (NEG) Urine Cannabinoids Screen Neg (NEG) Urine Ethyl Alcohol Neg (NEG) O2 Saturation 92 % (92-99) Arterial Blood pH 7.16 (7.35-7.45) Arterial Blood pCO2 at Patient Temp 43 mmHg (35-46) Arterial Blood pO2 at Patient Temp 79 mmHg (65-108) Arterial Blood HCO3 15 mmol/L (21-28) Arterial Blood Base Excess -13 mmol/L (-3-3) FiO2 34 Test 07/16/18 07:31 07/16/18 11:59 07/16/18 13:40 07/16/18 14:05 Glucose (Fingerstick) 111 mg/dL (70-99) 79 mg/dL (70-99) Sodium Level 142 mmol/L (136-145) Potassium Level 4.9 mmol/L (3.5-5.1) Chloride Level 107 mmol/L (98-107) Carbon Dioxide Level 24 mmol/L (21-32) Anion Gap 11 (6-14) Blood Urea Nitrogen 23 mg/dL (7-20) Creatinine 1.3 mg/dL (0.6-1.0) Estimated GFR (Cockcroft-Gault) 49.9 BUN/Creatinine Ratio 18 (6-20) Glucose Level 90 mg/dL (70-99) Lactic Acid Level 0.6 mmol/L (0.4-2.0) Calcium Level 8.5 mg/dL (8.5-10.1) Total Bilirubin 0.2 mg/dL (0.2-1.0) Aspartate Amino Transf (AST/SGOT) 22 U/L (15-37) Alanine Aminotransferase (ALT/SGPT) 21 U/L (14-59) Alkaline Phosphatase 89 U/L (46-116) Total Protein 6.9 g/dL (6.4-8.2) Albumin 3.2 g/dL (3.4-5.0) Albumin/Globulin Ratio 0.9 (1.0-1.7) Salicylates Level < 2.8 mg/dL (2.8-20.0) Salicylate Last Dose Date 07/16/18 Salicylate Last Dose Time 0000 Acetaminophen Level < 2 mcg/ml (10-30) Acetaminophen Last Dose Date 12/09/18 Acetaminophen Last Dose Time 0000 O2 Saturation 97 % (92-99) Arterial Blood pH 7.36 (7.35-7.45) Arterial Blood pCO2 at Patient Temp 39 mmHg (35-46) Arterial Blood pO2 at Patient Temp 104 mmHg (65-108) Arterial Blood HCO3 22 mmol/L (21-28) Arterial Blood Base Excess -3 mmol/L (-3-3) FiO2 28 VTE Prophylaxis Ordered VTE Prophylaxis Devices: No VTE Pharmacological Prophylaxi: Contraindicated Assessment/Plan Assessment/Plan Plan: EEG not able to be done today. MRI to be obtained today pending the confirmation of display director of anuerysm clips. Spoke to poison control and they agree that picture is not c/w cocaine toxicity and do not recc any esmolol, versed, etc protocol. They do recc Tylenol and Salixcylate levels She is occasionally htn with relief of this with labetalol. Have repeated abg and ph has normalized and cmp shows improved bicarb and LA wnl x 2 She seems to have pna on imaging so will stat IV Doxycycline Further reccs per neurology - per neuro recc hold off on further thomas ventura it can cause sedation IVF ELDER CHRISTENSEN MD Jul 16, 2018 16:04
--- NOTE | 2018-07-16 17:00 | RAD ---
Intracranial MR angiogram without contrast HISTORY: Head pain status post fall. TECHNIQUE: Axial 3-D [id number] and 3-D MIP reconstructions of the intracranial arteries characterize vascular anatomy and pathology was acquired. FINDINGS: Left vertebral artery is dominant. 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 The remaining intracranial arteries are visualized and demonstrate no aneurysm, stenosis, filling defect or occlusion. The 3-D MIP reconstructions demonstrate mild diffuse small vessel irregularity felt to be due to an artifact propagated by the artifact present on the axial [id number] source images. IMPRESSION: No thrombus, significant stenosis, occlusion or flow enhancement within an aneurysm sac. There is a large artifact from aneurysm clipping at the right carotid artery terminus and into communicating artery as described above. Electronically signed by: Attila Fox MD (07/16/2018 4:56 PM) [facility]
[2018-07-16] MEDS: LACOSAMIDE 100 MG in IV DEXTROSE 5% 50 ML IV SCH ×2 (17:35→20:56)
[2018-07-16] MEDS: ASPIRIN 325 MG TABLET PO SCH (18:00)
[2018-07-16 19:10] VITALS: BP 167/96
[2018-07-16] MEDS: FAMOTIDINE 20 MG TABLET. PO SCH (19:41)
[2018-07-16] MEDS: SIMVASTATIN 10 MG TABLET PO SCH (19:41)
[2018-07-16 23:00] VITALS: BP 192/94
[2018-07-16] MEDS: LABETALOL 20 MG/4 ML DISP.SYRIN. IVP PRN (23:41)
[2018-07-17 00:57] VITALS: BP 146/80
[2018-07-17 03:00] VITALS: BP 167/92
[2018-07-17] MEDS: IV NORMAL SALINE 1000ML BAG 1,000 ML IV SCH (04:35)
[2018-07-17 07:54] VITALS: BP 177/87
[2018-07-17] MEDS: ASPIRIN 325 MG TABLET PO SCH (07:54)
[2018-07-17] MEDS: THIAMINE INJ 100 MG in IV DEXTROSE 5% 50 ML IV SCH (08:13)
[2018-07-17] MEDS: DOXYCYCLINE HYCLATE 100 MG in IV DEXTROSE 5% 100ML 100 ML IV SCH (08:13)
[2018-07-17] MEDS: LACOSAMIDE 100 MG in IV DEXTROSE 5% 50 ML IV SCH ×2 (08:13→21:28)
[2018-07-17] MEDS: amLODIPine BESYLATE 5 MG TABLET PO SCH (08:14)
--- NOTE | 2018-07-17 08:42 | RAD ---
Clinical indications: TIA. CVA. Altered mental status. Duplex sonography of the cervical portion of both carotid arteries was performed including color flow imaging and spectral waveform analysis with flow velocity measurement and almaguer scale evaluation. Right side: Peak systolic flow velocity of the CCA is 67 cm/sec. Peak systolic flow velocity of the ICA is 61 cm/sec. Thus, the ICA/CCA ratio is less than 1.0. Peak end diastolic flow velocity of the ICA is 26 cm/sec. The peak systolic velocity of the ECA is 111 cm/sec. Left side: Peak systolic flow velocity of the CCA is 81 cm/sec. Peak systolic flow velocity of the ICA is 104 cm/sec. Thus, the ICA/CCA ratio is 1.3. Peak end diastolic flow velocity of the ICA is 40 cm/sec. Peak systolic flow velocity of the ECA is 107 cm/sec. No significant plaque formation is identified. Antegrade vertebral flow is seen bilaterally. The measurements were made using the NASCET criteria. Impression:No significant plaque formation is identified within the cervical portion of either carotid artery. Electronically signed by: Keny Cheung MD (07/17/2018 8:39 AM) [facility]
--- NOTE | 2018-07-17 10:09 | RAD ---
MRI of the brain without contrast 07/16/2018 Clinical History: New onset of seizures. Technique: Unenhanced T1-weighted sagittal and axial, T2-weighted axial and coronal and FLAIR, gradient echo and diffusion-weighted axial images of the brain were obtained. Findings: Comparison is made to the patient's CT scan of the head performed earlier the same day. Images from the study are degraded by patient motion. The patient is post right frontal temporal craniotomy. Magnetic susceptibility artifact related to an aneurysm clip is seen in the region of right anterior suprasellar cistern. There is generalized parenchymal atrophy. Patchy, confluent and small scattered areas of increased signal intensity are seen within the periventricular and subcortical white matter of both cerebral hemispheres on the FLAIR and T2-weighted images consistent with areas of small vessel ischemic disease. An area of encephalomalacia is seen involving the inferior anterior right frontal lobe. Several small focal areas of markedly decreased signal intensity are seen scattered throughout both cerebral hemispheres on the gradient echo images. These measure 2 to 3 mm in size. There is no surrounding edema or associated mass effect. They coul represent cavernous angiomas or areas of previous microhemorrhage. No acute parenchymal abnormality is seen. No extra-axial fluid collection is seen. There is no MRI evidence of acute ischemia/infarction. Mild mucosal thickening in seen scattered throughout the paranasal sinuses. Normal flow voids are seen within the major vascular structures surrounding the brain parenchyma. Impression: No acute parenchymal abnormality is seen. Electronically signed by: Chago Giron MD (07/17/2018 10:05 AM) [id number]
[2018-07-17] MEDS ORDERED: ONDANSETRON PF 4 MG/2 ML VIAL. IV PRN (10:30)
[2018-07-17] MEDS ORDERED: IBUPROFEN 400 MG TABLET. PO PRN (10:30)
[2018-07-17] MEDS ORDERED: ACETAMINOPHEN 500 MG TABLET PO PRN (10:30)
--- NOTE | 2018-07-17 10:39 | PDOC ---
PROGRESS NOTES Chief Complaint Chief Complaint Toxic encephalopathy, Cocaine. Metabolic encephalopathy. Cocaine use/abuse likely. Lactic acidosis. Seizures, provoked. Renal failure. Hx of brain aneurysm? DM. HTN. HLD. Tremor like movements. Cocaine positive. 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 test pos for coccaine PLAN: Await from EEG Started on vimpat and thiamine iV by neuro SZ prec Vitals Vitals Vital Signs Date Time Temp Pulse Resp B/P (MAP) Pulse Ox O2 Delivery O2 Flow Rate FiO2 07/17/18 08:00 Room Air 07/17/18 07:54 98.8 72 20 177/87 (117) 96 98.8 07/16/18 23:00 2.0 Physical Exam General: Alert, Oriented X3, Cooperative, No acute distress Heart: Regular rate, Normal S1, Normal S2, No murmurs Lungs: Clear Abdomen: Normal bowel sounds, Soft, No tenderness Extremities: No clubbing, No cyanosis, No edema Skin: No rashes, No breakdown, No significant lesion Labs LABS Laboratory Tests Test 07/16/18 11:59 07/16/18 13:40 07/16/18 14:05 07/16/18 17:03 Glucose (Fingerstick) 79 mg/dL (70-99) 71 mg/dL (70-99) Sodium Level 142 mmol/L (136-145) Potassium Level 4.9 mmol/L (3.5-5.1) Chloride Level 107 mmol/L (98-107) Carbon Dioxide Level 24 mmol/L (21-32) Anion Gap 11 (6-14) Blood Urea Nitrogen 23 mg/dL (7-20) Creatinine 1.3 mg/dL (0.6-1.0) Estimated GFR (Cockcroft-Gault) 49.9 BUN/Creatinine Ratio 18 (6-20) Glucose Level 90 mg/dL (70-99) Lactic Acid Level 0.6 mmol/L (0.4-2.0) Calcium Level 8.5 mg/dL (8.5-10.1) Total Bilirubin 0.2 mg/dL (0.2-1.0) Aspartate Amino Transf (AST/SGOT) 22 U/L (15-37) Alanine Aminotransferase (ALT/SGPT) 21 U/L (14-59) Alkaline Phosphatase 89 U/L (46-116) Total Protein 6.9 g/dL (6.4-8.2) Albumin 3.2 g/dL (3.4-5.0) Albumin/Globulin Ratio 0.9 (1.0-1.7) Vitamin B12 Level 372 pg/mL (247-911) Thyroid Stimulating Hormone (TSH) 0.967 uIU/mL (0.358-3.74) Salicylates Level < 2.8 mg/dL (2.8-20.0) Salicylate Last Dose Date 07/16/18 Salicylate Last Dose Time 0000 Acetaminophen Level < 2 mcg/ml (10-30) Acetaminophen Last Dose Date 07/16/18 Acetaminophen Last Dose Time 0000 O2 Saturation 97 % (92-99) Arterial Blood pH 7.36 (7.35-7.45) Arterial Blood pCO2 at Patient Temp 39 mmHg (35-46) Arterial Blood pO2 at Patient Temp 104 mmHg (65-108) Arterial Blood HCO3 22 mmol/L (21-28) Arterial Blood Base Excess -3 mmol/L (-3-3) FiO2 28 Test 07/16/18 19:32 07/17/18 07:55 Glucose (Fingerstick) 104 mg/dL (70-99) 82 mg/dL (70-99) Review of Systems Review of Systems neg 14 pt reviewed with her Assessment and Plan Assessmemt and Plan Problems Medical Problems: (1) New onset seizure Status: Acute Comment Review of Relevant I have reviewed the following items remi (where applicable) has been applied. Labs Laboratory Tests Test 07/16/18 00:30 07/16/18 00:45 07/16/18 01:45 07/16/18 05:45 White Blood Count 8.2 x10^3/uL (4.0-11.0) Red Blood Count 5.16 x10^6/uL (3.50-5.40) Hemoglobin 12.6 g/dL (12.0-15.5) Hematocrit 40.6 % (36.0-47.0) Mean Corpuscular Volume 79 fL (79-100) Mean Corpuscular Hemoglobin 24 pg (25-35) Mean Corpuscular Hemoglobin Concent 31 g/dL (31-37) Red Cell Distribution Width 20.7 % (11.5-14.5) Platelet Count 158 x10^3/uL (140-400) Neutrophils (%) (Auto) 42 % (31-73) Lymphocytes (%) (Auto) 46 % (24-48) Monocytes (%) (Auto) 9 % (0-9) Eosinophils (%) (Auto) 1 % (0-3) Basophils (%) (Auto) 1 % (0-3) Neutrophils # (Auto) 3.5 x10^3uL (1.8-7.7) Lymphocytes # (Auto) 3.8 x10^3/uL (1.0-4.8) Monocytes # (Auto) 0.8 x10^3/uL (0.0-1.1) Eosinophils # (Auto) 0.1 x10^3/uL (0.0-0.7) Basophils # (Auto) 0.1 x10^3/uL (0.0-0.2) Platelet Estimate Adequate (ADEQUATE) Polychromasia Slight Hypochromasia Slight Microcytosis Slight Prothrombin Time 14.3 SEC (11.7-14.0) Prothromb Time International Ratio 1.1 (0.8-1.1) Sodium Level 142 mmol/L (136-145) Potassium Level 4.3 mmol/L (3.5-5.1) Chloride Level 105 mmol/L (98-107) Carbon Dioxide Level 11 mmol/L (21-32) Anion Gap 26 (6-14) Blood Urea Nitrogen 32 mg/dL (7-20) Creatinine 1.8 mg/dL (0.6-1.0) Estimated GFR (Cockcroft-Gault) 34.3 BUN/Creatinine Ratio 18 (6-20) Glucose Level 169 mg/dL (70-99) Lactic Acid Level 16.7 mmol/L (0.4-2.0) 0.8 mmol/L (0.4-2.0) Calcium Level 9.7 mg/dL (8.5-10.1) Total Bilirubin 0.1 mg/dL (0.2-1.0) Aspartate Amino Transf (AST/SGOT) 19 U/L (15-37) Alanine Aminotransferase (ALT/SGPT) 15 U/L (14-59) Alkaline Phosphatase 104 U/L (46-116) Total Protein 8.4 g/dL (6.4-8.2) Albumin 3.7 g/dL (3.4-5.0) Albumin/Globulin Ratio 0.8 (1.0-1.7) Urine Collection Type U cath Urine Color Yellow Urine Clarity Clear Urine pH 6.0 Urine Specific Plain 1.020 Urine Protein 100 mg/dL (NEG-TRACE) Urine Glucose (UA) Negative mg/dL (NEG) Urine Ketones (Stick) Negative mg/dL (NEG) Urine Blood Trace (NEG) Urine Nitrite Negative (NEG) Urine Bilirubin Negative (NEG) Urine Urobilinogen Dipstick 0.2 mg/dL (0.2 mg/dL) Urine Leukocyte Esterase Negative (NEG) Urine RBC 1-2 /HPF (0-2) Urine WBC 1-4 /HPF (0-4) Urine Squamous Epithelial Cells Few /LPF Urine Bacteria Few /HPF (0-FEW) Urine Hyaline Casts Few /HPF Urine Opiates Screen Neg (NEG) Urine Methadone Screen Neg (NEG) Urine Barbiturates Neg (NEG) Urine Phencyclidine Screen Neg (NEG) Urine Amphetamine/Methamphetamine Neg (NEG) Urine Benzodiazepines Screen Neg (NEG) Urine Cocaine Screen Pos (NEG) Urine Cannabinoids Screen Neg (NEG) Urine Ethyl Alcohol Neg (NEG) O2 Saturation 92 % (92-99) Arterial Blood pH 7.16 (7.35-7.45) Arterial Blood pCO2 at Patient Temp 43 mmHg (35-46) Arterial Blood pO2 at Patient Temp 79 mmHg (65-108) Arterial Blood HCO3 15 mmol/L (21-28) Arterial Blood Base Excess -13 mmol/L (-3-3) FiO2 34 Test 07/16/18 07:31 07/16/18 11:59 07/16/18 13:40 07/16/18 14:05 Glucose (Fingerstick) 111 mg/dL (70-99) 79 mg/dL (70-99) Sodium Level 142 mmol/L (136-145) Potassium Level 4.9 mmol/L (3.5-5.1) Chloride Level 107 mmol/L (98-107) Carbon Dioxide Level 24 mmol/L (21-32) Anion Gap 11 (6-14) Blood Urea Nitrogen 23 mg/dL (7-20) Creatinine 1.3 mg/dL (0.6-1.0) Estimated GFR (Cockcroft-Gault) 49.9 BUN/Creatinine Ratio 18 (6-20) Glucose Level 90 mg/dL (70-99) Lactic Acid Level 0.6 mmol/L (0.4-2.0) Calcium Level 8.5 mg/dL (8.5-10.1) Total Bilirubin 0.2 mg/dL (0.2-1.0) Aspartate Amino Transf (AST/SGOT) 22 U/L (15-37) Alanine Aminotransferase (ALT/SGPT) 21 U/L (14-59) Alkaline Phosphatase 89 U/L (46-116) Total Protein 6.9 g/dL (6.4-8.2) Albumin 3.2 g/dL (3.4-5.0) Albumin/Globulin Ratio 0.9 (1.0-1.7) Vitamin B12 Level 372 pg/mL (247-911) Thyroid Stimulating Hormone (TSH) 0.967 uIU/mL (0.358-3.74) Salicylates Level < 2.8 mg/dL (2.8-20.0) Salicylate Last Dose Date 07/16/18 Salicylate Last Dose Time 0000 Acetaminophen Level < 2 mcg/ml (10-30) Acetaminophen Last Dose Date 07/16/18 Acetaminophen Last Dose Time 0000 O2 Saturation 97 % (92-99) Arterial Blood pH 7.36 (7.35-7.45) Arterial Blood pCO2 at Patient Temp 39 mmHg (35-46) Arterial Blood pO2 at Patient Temp 104 mmHg (65-108) Arterial Blood HCO3 22 mmol/L (21-28) Arterial Blood Base Excess -3 mmol/L (-3-3) FiO2 28 Test 07/16/18 17:03 07/16/18 19:32 07/17/18 07:55 Glucose (Fingerstick) 71 mg/dL (70-99) 104 mg/dL (70-99) 82 mg/dL (70-99) Laboratory Tests Test 07/16/18 11:59 07/16/18 13:40 07/16/18 14:05 07/16/18 17:03 Glucose (Fingerstick) 79 mg/dL (70-99) 71 mg/dL (70-99) Sodium Level 142 mmol/L (136-145) Potassium Level 4.9 mmol/L (3.5-5.1) Chloride Level 107 mmol/L (98-107) Carbon Dioxide Level 24 mmol/L (21-32) Anion Gap 11 (6-14) Blood Urea Nitrogen 23 mg/dL (7-20) Creatinine 1.3 mg/dL (0.6-1.0) Estimated GFR (Cockcroft-Gault) 49.9 BUN/Creatinine Ratio 18 (6-20) Glucose Level 90 mg/dL (70-99) Lactic Acid Level 0.6 mmol/L (0.4-2.0) Calcium Level 8.5 mg/dL (8.5-10.1) Total Bilirubin 0.2 mg/dL (0.2-1.0) Aspartate Amino Transf (AST/SGOT) 22 U/L (15-37) Alanine Aminotransferase (ALT/SGPT) 21 U/L (14-59) Alkaline Phosphatase 89 U/L (46-116) Total Protein 6.9 g/dL (6.4-8.2) Albumin 3.2 g/dL (3.4-5.0) Albumin/Globulin Ratio 0.9 (1.0-1.7) Vitamin B12 Level 372 pg/mL (247-911) Thyroid Stimulating Hormone (TSH) 0.967 uIU/mL (0.358-3.74) Salicylates Level < 2.8 mg/dL (2.8-20.0) Salicylate Last Dose Date 07/16/18 Salicylate Last Dose Time 0000 Acetaminophen Level < 2 mcg/ml (10-30) Acetaminophen Last Dose Date 07/16/18 Acetaminophen Last Dose Time 0000 O2 Saturation 97 % (92-99) Arterial Blood pH 7.36 (7.35-7.45) Arterial Blood pCO2 at Patient Temp 39 mmHg (35-46) Arterial Blood pO2 at Patient Temp 104 mmHg (65-108) Arterial Blood HCO3 22 mmol/L (21-28) Arterial Blood Base Excess -3 mmol/L (-3-3) FiO2 28 Test 07/16/18 19:32 07/17/18 07:55 Glucose (Fingerstick) 104 mg/dL (70-99) 82 mg/dL (70-99) Microbiology 07/16/18 Blood Culture - Preliminary, Resulted NO GROWTH AFTER 1 DAY Medications Current Medications Labetalol HCl (Normodyne Iv Push) 10 mg 1X ONCE IVP Last administered on at 00:29; Start 07/16/18 at 00:30; Stop 07/16/18 at 00:31; Status DC Lorazepam (Ativan) 2 mg 1X ONCE IV Last administered on 07/16/18at 00:24; Start 07/16/18 at 00:30; Stop 07/16/18 at 00:31; Status DC Morphine Sulfate (Morphine Sulfate) 4 mg STK-MED ONCE .ROUTE ; Start 07/16/18 at 02:01; Stop 07/16/18 at 02:02; Status DC Levetiracetam 1000 mg/Dextrose 110 ml @ 440 mls/hr 1X ONCE IV Last administered on 07/16/18at 03:02; Start 07/16/18 at 03:30; Stop 07/16/18 at 03:45 ; Status DC Ondansetron HCl (Zofran) 4 mg PRN Q8HRS PRN IV NAUSEA/VOMITING 1ST CHOICE; Start 07/16/18 at 03:15; Stop 07/17/18 at 03:14; Status DC Sodium Chloride 1,000 ml @ 125 mls/hr Q8H IV Last administered on 07/16/18at 05 :54; Start 07/16/18 at 03:04; Stop 07/16/18 at 15:11; Status DC Lorazepam (Ativan) 2 mg PRN Q4HRS PRN IV seizure; Start 07/16/18 at 04:00 Info (FLU VACCINE SCREEN per RX) 1 each PRN DAILY PRN [facility] UNABLE TO RESPOND; Start 07/16/18 at 05:15 Amlodipine Besylate (Norvasc) 5 mg DAILY PO ; Start 07/16/18 at 13:00; Stop 05/25 at 10:33; Status DC Acetaminophen/ Hydrocodone Bitart (Lortab 5/325) 1 tab PRN Q6HRS PRN PO PAIN; Start 07/16/18 at 13:00 Simvastatin (Zocor) 10 mg HS PO ; Start 07/16/18 at 21:00 Non-Formulary Medication (Albuterol Sulfate (Proair Hfa Inhaler)) 2 puff PRN Q4- 6HRS IH ; Start 07/16/18 at 13:00; Status UNV Famotidine (Pepcid) 20 mg HS PO ; Start 07/16/18 at 21:00 Albuterol Sulfate (Ventolin Neb Soln) 2.5 mg PRN Q4HRS PRN NEB SHORTNESS OF BREATH; Start 07/16/18 at 13:15 Doxycycline Hyclate 100 mg/ Dextrose 100 ml @ 50 mls/hr Q12HR IV Last administered on 07/17/18at 08:13; Start 07/16/18 at 14:00; Stop 07/17/18 at 10: 31; Status DC Lacosamide 100 mg/ Dextrose 60 ml @ 120 mls/hr BID IV Last administered on 05/25at 08:13; Start 07/16/18 at 15:00 Thiamine HCl 100 mg/Dextrose 51 ml @ 102 mls/hr DAILY IV Last administered on 07/17/18at 08:13; Start 07/16/18 at 15:00; Stop 07/17/18 at 10:31; Status DC Sodium Chloride 1,000 ml @ 75 mls/hr [id number] IV Last administered on at 15:15; Start 07/16/18 at 15:15; Stop 07/17/18 at 10:31; Status DC Labetalol HCl (Normodyne Iv Push) 10 mg PRN Q4HRS PRN IVP HYPERTENSION, SEE COMMENTS Last administered on 07/16/18at 23:41; Start 07/16/18 at 16:00 Aspirin (Fidelina Aspirin) 325 mg [id number] PO ; Start 07/16/18 at 18:00 Ondansetron HCl (Zofran) 4 mg PRN Q6HRS PRN IV NAUSEA/VOMITING; Start at 10:30 Thiamine Mononitrate (Vitamin B-1) 100 mg DAILY PO ; Start 07/18/18 at 09:00; Stop 07/18/18 at 09:00; Status DC Acetaminophen (Tylenol) 500 mg PRN Q6HRS PRN PO MILD PAIN / TEMP; Start at 10:30 Ibuprofen (Motrin) 400 mg PRN Q6HRS PRN PO INFLAMMATION; Start 07/17/18 at 10: 30 Thiamine HCl 100 mg/Dextrose 51 ml @ 102 mls/hr DAILY IV ; Start 07/18/18 at 09:00 Amlodipine Besylate (Norvasc) 10 mg DAILY PO ; Start 07/18/18 at 09:00 Active Scripts Active Hydrocodone-Apap 5-325 (Hydrocodone Bit/Acetaminophen) 1 Each Tablet 1 Tab PO PRN Q4HRS PRN Flagyl (Metronidazole) 500 Mg Tablet 500 Mg PO Q12HR 5 Days Levaquin (Levofloxacin) 500 Mg Tablet 500 Mg PO DAILY06 5 Days Amlodipine Besylate 5 Mg Tablet 5 Mg PO DAILY Reported Ranitidine Hcl 150 Mg Capsule 1 Cap PO BID Ativan (Lorazepam) 0.5 Mg Tablet 0.5 Mg PO PRN PRN Lortab 5-325 mg Tablet (Hydrocodone/Acetaminophen) 1 Each Tablet 1 Tab PO PRN Q6HRS PRN Simvastatin 10 Mg Tablet 10 Mg PO HS Proair Hfa Inhaler (Albuterol Sulfate) 8.5 Gm Hfa.aer.ad 2 Puff IH PRN Q4-6HRS Vitals/I & O Vital Sign - Last 24 Hours 07/16/18 07/16/18 07/16/18 07/16/18 15:42 19:10 19:43 23:00 Temp 99.4 98.4 98.1 99.4 98.4 98.1 Pulse 82 67 75 Resp 18 18 18 B/P (MAP) 179/79 (112) 167/96 (119) 192/94 (126) Pulse Ox 98 97 97 O2 Delivery Nasal Cannula Nasal Cannula Nasal Cannula Nasal Cannula O2 Flow Rate 2.0 2.0 3.0 2.0 07/16/18 07/17/18 07/17/18 07/17/18 23:41 00:57 03:00 07:54 Temp 98.4 98.8 98.4 98.8 Pulse 73 76 72 Resp 18 20 B/P (MAP) 179/103 146/80 (102) 167/92 (117) 177/87 (117) Pulse Ox 93 96 O2 Delivery Room Air Room Air 07/17/18 08:00 O2 Delivery Room Air Intake and Output 07/16/18 07/16/18 07/17/18 15:00 23:00 07:00 Intake Total 0 ml 0 ml 1462 ml Output Total 100 ml Balance 0 ml 0 ml 1362 ml RYLAND MCKINNON MD Jul 17, 2018 10:39
--- NOTE | 2018-07-17 11:00 | PDOC ---
PROGRESS NOTES Assessment Problems Medical Problems: (1) New onset seizure Status: Acute Toxic encephalopathy, Cocaine. Metabolic encephalopathy. Seizures, provoked. Renal failure. Hx of brain aneurysm, right carotid terminus, status-post clipping Plan Await EEG Vimpat 100 mg IV q12h, will switch to oral levetiracetam tomorrow. Vit B1 100 mg IV daily. No need for LP Subjective no complaints Objective Vital Signs Date Time Temp Pulse Resp B/P (MAP) Pulse Ox O2 Delivery O2 Flow Rate FiO2 07/17/18 08:00 Room Air 07/17/18 07:54 98.8 72 20 177/87 (117) 96 98.8 07/16/18 23:00 2.0 Intake and Output 07/17/18 07:00 Intake Total 1462 ml Output Total 100 ml Balance 1362 ml Intake Oral 0 ml IV Total 1462 ml Output Urine Total 100 ml # Voids 4 PHYSICAL EXAM Alert. Oriented to place and person, does not know date, tends to fall back to sleep easily. PERRL. EOMI. CN: no focal findings. Muscle tone: normal. Muscle strength: 4/5 DTR: 2+ Plantar reflex: Flexor Gait: not examined in bed. Sensory exam: no abnormal findings. No cerebellar signs elicited. Sensory exam: Withdraw response noted. No cerebellar signs elicited. Review of Relevant I have reviewed the following items remi (where applicable) has been applied. Labs Laboratory Tests Test 07/16/18 00:30 07/16/18 00:45 07/16/18 01:45 07/16/18 05:45 White Blood Count 8.2 x10^3/uL (4.0-11.0) Red Blood Count 5.16 x10^6/uL (3.50-5.40) Hemoglobin 12.6 g/dL (12.0-15.5) Hematocrit 40.6 % (36.0-47.0) Mean Corpuscular Volume 79 fL (79-100) Mean Corpuscular Hemoglobin 24 pg (25-35) Mean Corpuscular Hemoglobin Concent 31 g/dL (31-37) Red Cell Distribution Width 20.7 % (11.5-14.5) Platelet Count 158 x10^3/uL (140-400) Neutrophils (%) (Auto) 42 % (31-73) Lymphocytes (%) (Auto) 46 % (24-48) Monocytes (%) (Auto) 9 % (0-9) Eosinophils (%) (Auto) 1 % (0-3) Basophils (%) (Auto) 1 % (0-3) Neutrophils # (Auto) 3.5 x10^3uL (1.8-7.7) Lymphocytes # (Auto) 3.8 x10^3/uL (1.0-4.8) Monocytes # (Auto) 0.8 x10^3/uL (0.0-1.1) Eosinophils # (Auto) 0.1 x10^3/uL (0.0-0.7) Basophils # (Auto) 0.1 x10^3/uL (0.0-0.2) Platelet Estimate Adequate (ADEQUATE) Polychromasia Slight Hypochromasia Slight Microcytosis Slight Prothrombin Time 14.3 SEC (11.7-14.0) Prothromb Time International Ratio 1.1 (0.8-1.1) Sodium Level 142 mmol/L (136-145) Potassium Level 4.3 mmol/L (3.5-5.1) Chloride Level 105 mmol/L (98-107) Carbon Dioxide Level 11 mmol/L (21-32) Anion Gap 26 (6-14) Blood Urea Nitrogen 32 mg/dL (7-20) Creatinine 1.8 mg/dL (0.6-1.0) Estimated GFR (Cockcroft-Gault) 34.3 BUN/Creatinine Ratio 18 (6-20) Glucose Level 169 mg/dL (70-99) Lactic Acid Level 16.7 mmol/L (0.4-2.0) 0.8 mmol/L (0.4-2.0) Calcium Level 9.7 mg/dL (8.5-10.1) Total Bilirubin 0.1 mg/dL (0.2-1.0) Aspartate Amino Transf (AST/SGOT) 19 U/L (15-37) Alanine Aminotransferase (ALT/SGPT) 15 U/L (14-59) Alkaline Phosphatase 104 U/L (46-116) Total Protein 8.4 g/dL (6.4-8.2) Albumin 3.7 g/dL (3.4-5.0) Albumin/Globulin Ratio 0.8 (1.0-1.7) Urine Collection Type U cath Urine Color Yellow Urine Clarity Clear Urine pH 6.0 Urine Specific [place] 1.020 Urine Protein 100 mg/dL (NEG-TRACE) Urine Glucose (UA) Negative mg/dL (NEG) Urine Ketones (Stick) Negative mg/dL (NEG) Urine Blood Trace (NEG) Urine Nitrite Negative (NEG) Urine Bilirubin Negative (NEG) Urine Urobilinogen Dipstick 0.2 mg/dL (0.2 mg/dL) Urine Leukocyte Esterase Negative (NEG) Urine RBC 1-2 /HPF (0-2) Urine WBC 1-4 /HPF (0-4) Urine Squamous Epithelial Cells Few /LPF Urine Bacteria Few /HPF (0-FEW) Urine Hyaline Casts Few /HPF Urine Opiates Screen Neg (NEG) Urine Methadone Screen Neg (NEG) Urine Barbiturates Neg (NEG) Urine Phencyclidine Screen Neg (NEG) Urine Amphetamine/Methamphetamine Neg (NEG) Urine Benzodiazepines Screen Neg (NEG) Urine Cocaine Screen Pos (NEG) Urine Cannabinoids Screen Neg (NEG) Urine Ethyl Alcohol Neg (NEG) O2 Saturation 92 % (92-99) Arterial Blood pH 7.16 (7.35-7.45) Arterial Blood pCO2 at Patient Temp 43 mmHg (35-46) Arterial Blood pO2 at Patient Temp 79 mmHg (65-108) Arterial Blood HCO3 15 mmol/L (21-28) Arterial Blood Base Excess -13 mmol/L (-3-3) FiO2 34 Test 07/16/18 07:31 07/16/18 11:59 07/16/18 13:40 07/16/18 14:05 Glucose (Fingerstick) 111 mg/dL (70-99) 79 mg/dL (70-99) Sodium Level 142 mmol/L (136-145) Potassium Level 4.9 mmol/L (3.5-5.1) Chloride Level 107 mmol/L (98-107) Carbon Dioxide Level 24 mmol/L (21-32) Anion Gap 11 (6-14) Blood Urea Nitrogen 23 mg/dL (7-20) Creatinine 1.3 mg/dL (0.6-1.0) Estimated GFR (Cockcroft-Gault) 49.9 BUN/Creatinine Ratio 18 (6-20) Glucose Level 90 mg/dL (70-99) Lactic Acid Level 0.6 mmol/L (0.4-2.0) Calcium Level 8.5 mg/dL (8.5-10.1) Total Bilirubin 0.2 mg/dL (0.2-1.0) Aspartate Amino Transf (AST/SGOT) 22 U/L (15-37) Alanine Aminotransferase (ALT/SGPT) 21 U/L (14-59) Alkaline Phosphatase 89 U/L (46-116) Total Protein 6.9 g/dL (6.4-8.2) Albumin 3.2 g/dL (3.4-5.0) Albumin/Globulin Ratio 0.9 (1.0-1.7) Vitamin B12 Level 372 pg/mL (247-911) Thyroid Stimulating Hormone (TSH) 0.967 uIU/mL (0.358-3.74) Salicylates Level < 2.8 mg/dL (2.8-20.0) Salicylate Last Dose Date 07/16/18 Salicylate Last Dose Time 0000 Acetaminophen Level < 2 mcg/ml (10-30) Acetaminophen Last Dose Date 07/16/18 Acetaminophen Last Dose Time 0000 O2 Saturation 97 % (92-99) Arterial Blood pH 7.36 (7.35-7.45) Arterial Blood pCO2 at Patient Temp 39 mmHg (35-46) Arterial Blood pO2 at Patient Temp 104 mmHg (65-108) Arterial Blood HCO3 22 mmol/L (21-28) Arterial Blood Base Excess -3 mmol/L (-3-3) FiO2 28 Test 07/16/18 17:03 07/16/18 19:32 07/17/18 07:55 Glucose (Fingerstick) 71 mg/dL (70-99) 104 mg/dL (70-99) 82 mg/dL (70-99) Laboratory Tests Test 07/16/18 11:59 07/16/18 13:40 07/16/18 14:05 07/16/18 17:03 Glucose (Fingerstick) 79 mg/dL (70-99) 71 mg/dL (70-99) Sodium Level 142 mmol/L (136-145) Potassium Level 4.9 mmol/L (3.5-5.1) Chloride Level 107 mmol/L (98-107) Carbon Dioxide Level 24 mmol/L (21-32) Anion Gap 11 (6-14) Blood Urea Nitrogen 23 mg/dL (7-20) Creatinine 1.3 mg/dL (0.6-1.0) Estimated GFR (Cockcroft-Gault) 49.9 BUN/Creatinine Ratio 18 (6-20) Glucose Level 90 mg/dL (70-99) Lactic Acid Level 0.6 mmol/L (0.4-2.0) Calcium Level 8.5 mg/dL (8.5-10.1) Total Bilirubin 0.2 mg/dL (0.2-1.0) Aspartate Amino Transf (AST/SGOT) 22 U/L (15-37) Alanine Aminotransferase (ALT/SGPT) 21 U/L (14-59) Alkaline Phosphatase 89 U/L (46-116) Total Protein 6.9 g/dL (6.4-8.2) Albumin 3.2 g/dL (3.4-5.0) Albumin/Globulin Ratio 0.9 (1.0-1.7) Vitamin B12 Level 372 pg/mL (247-911) Thyroid Stimulating Hormone (TSH) 0.967 uIU/mL (0.358-3.74) Salicylates Level < 2.8 mg/dL (2.8-20.0) Salicylate Last Dose Date 07/16/18 Salicylate Last Dose Time 0000 Acetaminophen Level < 2 mcg/ml (10-30) Acetaminophen Last Dose Date 07/16/18 Acetaminophen Last Dose Time 0000 O2 Saturation 97 % (92-99) Arterial Blood pH 7.36 (7.35-7.45) Arterial Blood pCO2 at Patient Temp 39 mmHg (35-46) Arterial Blood pO2 at Patient Temp 104 mmHg (65-108) Arterial Blood HCO3 22 mmol/L (21-28) Arterial Blood Base Excess -3 mmol/L (-3-3) FiO2 28 Test 07/16/18 19:32 07/17/18 07:55 Glucose (Fingerstick) 104 mg/dL (70-99) 82 mg/dL (70-99) Microbiology 07/16/18 Blood Culture - Preliminary, Resulted NO GROWTH AFTER 1 DAY Medications Current Medications Labetalol HCl (Normodyne Iv Push) 10 mg 1X ONCE IVP Last administered on at 00:29; Start 07/16/18 at 00:30; Stop 07/16/18 at 00:31; Status DC Lorazepam (Ativan) 2 mg 1X ONCE IV Last administered on 07/16/18at 00:24; Start 07/16/18 at 00:30; Stop 07/16/18 at 00:31; Status DC Morphine Sulfate (Morphine Sulfate) 4 mg STK-MED ONCE .ROUTE ; Start 07/16/18 at 02:01; Stop 07/16/18 at 02:02; Status DC Levetiracetam 1000 mg/Dextrose 110 ml @ 440 mls/hr 1X ONCE IV Last administered on 07/16/18at 03:02; Start 07/16/18 at 03:30; Stop 07/16/18 at 03:45 ; Status DC Ondansetron HCl (Zofran) 4 mg PRN Q8HRS PRN IV NAUSEA/VOMITING 1ST CHOICE; Start 07/16/18 at 03:15; Stop 07/17/18 at 03:14; Status DC Sodium Chloride 1,000 ml @ 125 mls/hr Q8H IV Last administered on 07/16/18at 05 :54; Start 07/16/18 at 03:04; Stop 07/16/18 at 15:11; Status DC Lorazepam (Ativan) 2 mg PRN Q4HRS PRN IV seizure; Start 07/16/18 at 04:00 Info (FLU VACCINE SCREEN per RX) 1 each PRN DAILY PRN [facility] UNABLE TO RESPOND; Start 07/16/18 at 05:15 Amlodipine Besylate (Norvasc) 5 mg DAILY PO ; Start 07/16/18 at 13:00; Stop 05/25 at 10:33; Status DC Acetaminophen/ Hydrocodone Bitart (Lortab 5/325) 1 tab PRN Q6HRS PRN PO PAIN; Start 07/16/18 at 13:00 Simvastatin (Zocor) 10 mg HS PO ; Start 07/16/18 at 21:00 Non-Formulary Medication (Albuterol Sulfate (Proair Hfa Inhaler)) 2 puff PRN Q4- 6HRS IH ; Start 07/16/18 at 13:00; Status UNV Famotidine (Pepcid) 20 mg HS PO ; Start 07/16/18 at 21:00 Albuterol Sulfate (Ventolin Neb Soln) 2.5 mg PRN Q4HRS PRN NEB SHORTNESS OF BREATH; Start 07/16/18 at 13:15 Doxycycline Hyclate 100 mg/ Dextrose 100 ml @ 50 mls/hr Q12HR IV Last administered on 07/17/18at 08:13; Start 07/16/18 at 14:00; Stop 07/17/18 at 10: 31; Status DC Lacosamide 100 mg/ Dextrose 60 ml @ 120 mls/hr BID IV Last administered on 05/25at 08:13; Start 07/16/18 at 15:00 Thiamine HCl 100 mg/Dextrose 51 ml @ 102 mls/hr DAILY IV Last administered on 07/17/18at 08:13; Start 07/16/18 at 15:00; Stop 07/17/18 at 10:31; Status DC Sodium Chloride 1,000 ml @ 75 mls/hr [id number] IV Last administered on at 15:15; Start 07/16/18 at 15:15; Stop 07/17/18 at 10:31; Status DC Labetalol HCl (Normodyne Iv Push) 10 mg PRN Q4HRS PRN IVP HYPERTENSION, SEE COMMENTS Last administered on 07/16/18at 23:41; Start 07/16/18 at 16:00 Aspirin (Fidelina Aspirin) 325 mg [id number] PO ; Start 07/16/18 at 18:00 Ondansetron HCl (Zofran) 4 mg PRN Q6HRS PRN IV NAUSEA/VOMITING; Start at 10:30 Thiamine Mononitrate (Vitamin B-1) 100 mg DAILY PO ; Start 07/18/18 at 09:00; Stop 07/18/18 at 09:00; Status DC Acetaminophen (Tylenol) 500 mg PRN Q6HRS PRN PO MILD PAIN / TEMP; Start at 10:30 Ibuprofen (Motrin) 400 mg PRN Q6HRS PRN PO INFLAMMATION; Start 07/17/18 at 10: 30 Thiamine HCl 100 mg/Dextrose 51 ml @ 102 mls/hr DAILY IV ; Start 07/18/18 at 09:00 Amlodipine Besylate (Norvasc) 10 mg DAILY PO ; Start 07/18/18 at 09:00 Active Scripts Active Hydrocodone-Apap 5-325 (Hydrocodone Bit/Acetaminophen) 1 Each Tablet 1 Tab PO PRN Q4HRS PRN Flagyl (Metronidazole) 500 Mg Tablet 500 Mg PO Q12HR 5 Days Levaquin (Levofloxacin) 500 Mg Tablet 500 Mg PO DAILY06 5 Days Amlodipine Besylate 5 Mg Tablet 5 Mg PO DAILY Reported Ranitidine Hcl 150 Mg Capsule 1 Cap PO BID Ativan (Lorazepam) 0.5 Mg Tablet 0.5 Mg PO PRN PRN Lortab 5-325 mg Tablet (Hydrocodone/Acetaminophen) 1 Each Tablet 1 Tab PO PRN Q6HRS PRN Simvastatin 10 Mg Tablet 10 Mg PO HS Proair Hfa Inhaler (Albuterol Sulfate) 8.5 Gm Hfa.aer.ad 2 Puff IH PRN Q4-6HRS Vitals/I & O Vital Sign - Last 24 Hours 07/16/18 07/16/18 07/16/18 07/16/18 15:42 19:10 19:43 23:00 Temp 99.4 98.4 98.1 99.4 98.4 98.1 Pulse 82 67 75 Resp 18 18 18 B/P (MAP) 179/79 (112) 167/96 (119) 192/94 (126) Pulse Ox 98 97 97 O2 Delivery Nasal Cannula Nasal Cannula Nasal Cannula Nasal Cannula O2 Flow Rate 2.0 2.0 3.0 2.0 07/16/18 07/17/18 07/17/18 07/17/18 23:41 00:57 03:00 07:54 Temp 98.4 98.8 98.4 98.8 Pulse 73 76 72 Resp 18 20 B/P (MAP) 179/103 146/80 (102) 167/92 (117) 177/87 (117) Pulse Ox 93 96 O2 Delivery Room Air Room Air 07/17/18 08:00 O2 Delivery Room Air Intake and Output 07/16/18 07/16/18 07/17/18 15:00 23:00 07:00 Intake Total 0 ml 0 ml 1462 ml Output Total 100 ml Balance 0 ml 0 ml 1362 ml Images MRI of the brain without contrast 07/16/2018 Clinical History: New onset of seizures. Technique: Unenhanced T1-weighted sagittal and axial, T2-weighted axial and coronal and FLAIR, gradient echo and diffusion-weighted axial images of the brain were obtained. Findings: Comparison is made to the patient's CT scan of the head performed earlier the same day. Images from the study are degraded by patient motion. The patient is post right frontal temporal craniotomy. Magnetic susceptibility artifact related to an aneurysm clip is seen in the region of right anterior suprasellar cistern. There is generalized parenchymal atrophy. Patchy, confluent and small scattered areas of increased signal intensity are seen within the periventricular and subcortical white matter of both cerebral hemispheres on the FLAIR and T2-weighted images consistent with areas of small vessel ischemic disease. An area of encephalomalacia is seen involving the inferior anterior right frontal lobe. Several small focal areas of markedly decreased signal intensity are seen scattered throughout both cerebral hemispheres on the gradient echo images. These measure 2 to 3 mm in size. There is no surrounding edema or associated mass effect. They coul represent cavernous angiomas or areas of previous microhemorrhage. No acute parenchymal abnormality is seen. No extra-axial fluid collection is seen. There is no MRI evidence of acute ischemia/infarction. Mild mucosal thickening in seen scattered throughout the paranasal sinuses. Normal flow voids are seen within the major vascular structures surrounding the brain parenchyma. Impression: No acute parenchymal abnormality is seen. Intracranial MR angiogram without contrast HISTORY: Head pain status post fall. TECHNIQUE: Axial 3-D [id number] and 3-D MIP reconstructions of the intracranial arteries characterize vascular anatomy and pathology was acquired. FINDINGS: Left vertebral artery is dominant. 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 The remaining intracranial arteries are visualized and demonstrate no aneurysm, stenosis, filling defect or occlusion. The 3-D MIP reconstructions demonstrate mild diffuse small vessel irregularity felt to be due to an artifact propagated by the artifact present on the axial [id number] source images. IMPRESSION: No thrombus, significant stenosis, occlusion or flow enhancement within an aneurysm sac. There is a large artifact from aneurysm clipping at the right carotid artery terminus and into communicating artery as described above. Carotids: No significant plaque formation is identified. Antegrade vertebral flow is seen bilaterally. The measurements were made using the NASCET criteria. Impression:No significant plaque formation is identified within the cervical portion of either carotid artery. MADY OH MD Jul 17, 2018 11:00
[2018-07-17 13:22] LABS: CALCIUM 9.2 mg/dL (8.5-10.1); CREATININE 1.1 mg/dL (0.6-1.0); GFR 60.5; POTASSIUM 4.5 mmol/L (3.5-5.1)
[2018-07-17 13:25] LABS: CHOLESTEROL/HDL RATIO 4.4
--- NOTE | 2018-07-17 13:36 | EEG ---
DATE OF SERVICE: 07/17/2018 ELECTROENCEPHALOGRAM NUMBER: [id number]. OBJECTIVE: The patient is a 62-year-old female with seizures and altered mental status, history of aneurysm surgery. DESCRIPTION: This is a digital study. Electrodes are placed according to the international 10-20 system. Bipolar and referential montages are available. Activation procedures typically include hyperventilation and intermittent photic stimulation. INTERPRETATION: The waking background is 5-6 Hz, 20-50 microvolt activity. There are periodic lateralizing epileptiform discharges over the right hemisphere with occasional spread to the left. Hyperventilation is not performed. Intermittent photic stimulation is noncontributory. IMPRESSION: This electroencephalogram with the patient in obtunded state is abnormal because of periodic lateralizing epileptiform discharges on the right hemisphere. This is often related to acute insult such as stroke. Thank you for letting us help with the patient's care. MADY OH MD DR: LUKAS/syed JOB#: [id number] / [id number] ELDER Navarro MD
[2018-07-17 13:57] LABS: BASO % 1 % (0-3); EOS % 1 % (0-3); HEMATOCRIT 37.5 % (36.0-47.0); HEMOGLOBIN 12.2 g/dL (12.0-15.5); LYMPH # 1.2 x10^3/uL (1.0-4.8); LYMPH % 26 % (24-48); MEAN CORPUSCULAR HEMOGLOBIN 24 pg (25-35); MEAN CORPUSCULAR HGB CONC 33 g/dL (31-37); MEAN CORPUSCULAR VOLUME 74 fL (79-100); MONO # 0.5 x10^3/uL (0.0-1.1); MONO % 11 % (0-9); NEUT # 2.9 x10^3uL (1.8-7.7); NEUT % 62 % (31-73); PLATELET COUNT 127 x10^3/uL (140-400); RED BLOOD COUNT 5.05 x10^6/uL (3.50-5.40); RED CELL DISTRIBUTION WIDTH 21.1 % (11.5-14.5); WHITE BLOOD COUNT 4.7 x10^3/uL (4.0-11.0)
[2018-07-17 14:49] VITALS: BP 187/81
--- NOTE | 2018-07-17 16:26 | CARD ---
MR#: [id number] Date of Study: 07/17/2018 Ordering Physician: PETER TORRES, Referring Physician: ELDER CHRISTENSEN, Tech: Sandra Snigh APPROVED REPORT EXAM: Two-dimensional and M-mode echocardiogram with Doppler and color Doppler. Other Information Quality : GoodHR: 71bpm INDICATION CVA/TIA 2D DIMENSIONS Left Atrium(2D)3.2 (1.6-4.0cm)IVSd1.3 (0.7-1.1cm) Aortic Root(2D)2.8 (2.0-3.7cm)LVDd4.3 (3.9-5.9cm) LVOT Diameter2.0 (1.8-2.4cm)PWd1.2 (0.7-1.1cm) Aortic Valve AO Peak GR.16.1mmHgLVOT VTI 41.19cm AO Mean GR.864mmHgAVA (VMAX)2.01cm2 CLAUDINE (VTI)2.01cm2 Tricuspid Valve RAP [id number] Peak Gr.28mmHg [id number] LEFT VENTRICLE The left ventricle is normal size. There is mild to moderate concentric left ventricular hypertrophy. The left ventricular systolic function is normal. The Ejection Fraction is 65-70%. There is normal L V segmental wall motion. Transmitral Doppler flow pattern is Grade I-abnormal relaxation pattern. RIGHT VENTRICLE The right ventricle is normal size. There is normal right ventricular wall thickness. The right ventr icular systolic function is normal. ATRIA The left atrium size is normal. The right atrium size is normal. The interatrial septum is intact wit h no evidence for an atrial septal defect or patent foramen ovale as noted on 2-D or Doppler imaging. Bubble study did not show any evidence for interatrial shunt. AORTIC VALVE The aortic valve is not well visualized. Doppler and Color Flow revealed mild to moderate aortic regu rgitation. There is no significant aortic valvular stenosis. MITRAL VALVE The mitral valve is normal in structure and function. Doppler and Color-flow revealed trace mitral re gurgitation. TRICUSPID VALVE The tricuspid valve is normal in structure and function. Doppler and Color Flow revealed trace tricus pid regurgitation. There is no tricuspid valve stenosis. PULMONIC VALVE The pulmonic valve is not well visualized. Doppler and Color Flow revealed trace pulmonic valvular re gurgitation. GREAT VESSELS The aortic root is normal in size. The IVC is normal in size and collapses >50% with inspiration. PERICARDIAL EFFUSION There is no evidence of significant pericardial effusion. Critical Notification Critical Value: No <Conclusion> The left ventricular systolic function is normal. The Ejection Fraction is 65-70%. There is normal LV segmental wall motion. Mild to moderate aortic regurgitation. Trace mitral regurgitation. Trace tricuspid regurgitation. There is no evidence of significant pericardial effusion. Bubble study did not show any evidence for interatrial shunt. Signed by : Camilo Rader, Electronically Approved : 07/17/2018 16:25:43
[2018-07-17 19:15] VITALS: BP 182/94
[2018-07-17] MEDS: LABETALOL 20 MG/4 ML DISP.SYRIN. IVP PRN (19:55)
[2018-07-17] MEDS: FAMOTIDINE 20 MG TABLET. PO SCH (21:00)
[2018-07-17] MEDS: SIMVASTATIN 10 MG TABLET PO SCH (21:00)
[2018-07-17 22:45] VITALS: BP 163/89
[2018-07-18] VITALS (8 sets, daily range): BP systolic 133–191; BP diastolic 74–104
[2018-07-18] MEDS: LABETALOL 20 MG/4 ML DISP.SYRIN. IVP PRN ×3 (03:14→21:25)
[2018-07-18] MEDS: LACOSAMIDE 100 MG in IV DEXTROSE 5% 50 ML IV SCH (08:54)
[2018-07-18] MEDS ORDERED: THIAMINE INJ 100 MG in IV DEXTROSE 5% 50 ML IV SCH (09:00)
[2018-07-18] MEDS ORDERED: THIAMINE 100 MG TABLET. PO SCH (09:00)
[2018-07-18] MEDS: ASPIRIN 325 MG TABLET PO SCH (10:48)
[2018-07-18] MEDS: amLODIPine BESYLATE 10 MG TABLET PO SCH (10:49)
--- NOTE | 2018-07-18 11:10 | PDOC ---
PROGRESS NOTES Chief Complaint Chief Complaint Toxic encephalopathy, Cocaine. Metabolic encephalopathy. Cocaine use/abuse likely. Lactic acidosis. Seizures, provoked. Renal failure. Hx of brain aneurysm? DM. HTN. HLD. Tremor like movements. Cocaine positive. History of Present Illness History of Present Illness This is the first day she is wide awake Had an EEG yesterday 07/17/18 So far no seizures since admission Neurology has shifted to by mouth thiamine and by mouth Keppra We'll await for PT OT eval Long toenails Some confusion evident but stable clinically She did test positive for cocaine on UDS plan: Await PT OT so that we can know discharge disposition Sister is her nearest next of kin Podiatry consult for toenail clipping Seizure precaution Discussed with RN at bedside Vitals Vitals Vital Signs Date Time Temp Pulse Resp B/P (MAP) Pulse Ox O2 Delivery O2 Flow Rate FiO2 07/18/18 10:57 97.9 64 18 182/75 (110) 96 Room Air 97.9 07/18/18 08:00 3.0 Physical Exam General: Alert, Oriented X3, Cooperative, No acute distress Heart: Regular rate, Normal S1, Normal S2, No murmurs Lungs: Clear Abdomen: Normal bowel sounds, Soft, No tenderness Extremities: No clubbing, No cyanosis, No edema Skin: No rashes, No breakdown, No significant lesion Labs LABS Laboratory Tests Test 07/17/18 12:01 07/17/18 12:55 07/17/18 13:40 Glucose (Fingerstick) 88 mg/dL (70-99) Sodium Level 139 mmol/L (136-145) Potassium Level 4.5 mmol/L (3.5-5.1) Chloride Level 106 mmol/L (98-107) Carbon Dioxide Level 24 mmol/L (21-32) Anion Gap 9 (6-14) Blood Urea Nitrogen 15 mg/dL (7-20) Creatinine 1.1 mg/dL (0.6-1.0) Estimated GFR (Cockcroft-Gault) 60.5 Glucose Level 97 mg/dL (70-99) Calcium Level 9.2 mg/dL (8.5-10.1) Triglycerides Level 80 mg/dL (0-150) Cholesterol Level 279 mg/dL (0-200) LDL Cholesterol, Calculated 199 mg/dL (0-100) VLDL Cholesterol, Calculated 16 mg/dL (0-40) Non-HDL Cholesterol Calculated 215 mg/dL (0-129) HDL Cholesterol 64 mg/dL (40-60) Cholesterol/HDL Ratio 4.4 White Blood Count 4.7 x10^3/uL (4.0-11.0) Red Blood Count 5.05 x10^6/uL (3.50-5.40) Hemoglobin 12.2 g/dL (12.0-15.5) Hematocrit 37.5 % (36.0-47.0) Mean Corpuscular Volume 74 fL (79-100) Mean Corpuscular Hemoglobin 24 pg (25-35) Mean Corpuscular Hemoglobin Concent 33 g/dL (31-37) Red Cell Distribution Width 21.1 % (11.5-14.5) Platelet Count 127 x10^3/uL (140-400) Neutrophils (%) (Auto) 62 % (31-73) Lymphocytes (%) (Auto) 26 % (24-48) Monocytes (%) (Auto) 11 % (0-9) Eosinophils (%) (Auto) 1 % (0-3) Basophils (%) (Auto) 1 % (0-3) Neutrophils # (Auto) 2.9 x10^3uL (1.8-7.7) Lymphocytes # (Auto) 1.2 x10^3/uL (1.0-4.8) Monocytes # (Auto) 0.5 x10^3/uL (0.0-1.1) Eosinophils # (Auto) 0.0 x10^3/uL (0.0-0.7) Basophils # (Auto) 0.0 x10^3/uL (0.0-0.2) Review of Systems Review of Systems A 14 point ROS was completed with the following noted as positive: Other systems reviewed and negative. \CONSTITUTIONAL: No fever or chills EYES: No recent changes SKIN: No rash or itching CARDIOVASCULAR: No chest pain, syncope, palpitations, or edema RESPIRATORY: No SOB or cough GASTROINTESTINAL: No nausea, vomiting or abdominal pain NEUROLOGICAL: No headaches or weakness ENDOCRINE: No cold or heat intolerance GENITOURINARY: No urgency or frequency of urination MUSCULOSKELETAL: No back pain or joint pain LYMPHATICS: No enlarged lymph nodes PSYCHIATRIC: No anxiety or depression Assessment and Plan Assessmemt and Plan Problems Medical Problems: (1) New onset seizure Status: Acute Comment Review of Relevant I have reviewed the following items remi (where applicable) has been applied. Labs Laboratory Tests Test 07/16/18 11:59 07/16/18 13:40 07/16/18 14:05 07/16/18 17:03 Glucose (Fingerstick) 79 mg/dL (70-99) 71 mg/dL (70-99) Sodium Level 142 mmol/L (136-145) Potassium Level 4.9 mmol/L (3.5-5.1) Chloride Level 107 mmol/L (98-107) Carbon Dioxide Level 24 mmol/L (21-32) Anion Gap 11 (6-14) Blood Urea Nitrogen 23 mg/dL (7-20) Creatinine 1.3 mg/dL (0.6-1.0) Estimated GFR (Cockcroft-Gault) 49.9 BUN/Creatinine Ratio 18 (6-20) Glucose Level 90 mg/dL (70-99) Lactic Acid Level 0.6 mmol/L (0.4-2.0) Calcium Level 8.5 mg/dL (8.5-10.1) Total Bilirubin 0.2 mg/dL (0.2-1.0) Aspartate Amino Transf (AST/SGOT) 22 U/L (15-37) Alanine Aminotransferase (ALT/SGPT) 21 U/L (14-59) Alkaline Phosphatase 89 U/L (46-116) Total Protein 6.9 g/dL (6.4-8.2) Albumin 3.2 g/dL (3.4-5.0) Albumin/Globulin Ratio 0.9 (1.0-1.7) Vitamin B12 Level 372 pg/mL (247-911) Thyroid Stimulating Hormone (TSH) 0.967 uIU/mL (0.358-3.74) Salicylates Level < 2.8 mg/dL (2.8-20.0) Salicylate Last Dose Date 07/16/18 Salicylate Last Dose Time 0000 Acetaminophen Level < 2 mcg/ml (10-30) Acetaminophen Last Dose Date 07/16/18 Acetaminophen Last Dose Time 0000 O2 Saturation 97 % (92-99) Arterial Blood pH 7.36 (7.35-7.45) Arterial Blood pCO2 at Patient Temp 39 mmHg (35-46) Arterial Blood pO2 at Patient Temp 104 mmHg (65-108) Arterial Blood HCO3 22 mmol/L (21-28) Arterial Blood Base Excess -3 mmol/L (-3-3) FiO2 28 Test 07/16/18 19:32 07/17/18 07:55 07/17/18 12:01 07/17/18 12:55 Glucose (Fingerstick) 104 mg/dL (70-99) 82 mg/dL (70-99) 88 mg/dL (70-99) Sodium Level 139 mmol/L (136-145) Potassium Level 4.5 mmol/L (3.5-5.1) Chloride Level 106 mmol/L (98-107) Carbon Dioxide Level 24 mmol/L (21-32) Anion Gap 9 (6-14) Blood Urea Nitrogen 15 mg/dL (7-20) Creatinine 1.1 mg/dL (0.6-1.0) Estimated GFR (Cockcroft-Gault) 60.5 Glucose Level 97 mg/dL (70-99) Calcium Level 9.2 mg/dL (8.5-10.1) Triglycerides Level 80 mg/dL (0-150) Cholesterol Level 279 mg/dL (0-200) LDL Cholesterol, Calculated 199 mg/dL (0-100) VLDL Cholesterol, Calculated 16 mg/dL (0-40) Non-HDL Cholesterol Calculated 215 mg/dL (0-129) HDL Cholesterol 64 mg/dL (40-60) Cholesterol/HDL Ratio 4.4 Test 07/17/18 13:40 White Blood Count 4.7 x10^3/uL (4.0-11.0) Red Blood Count 5.05 x10^6/uL (3.50-5.40) Hemoglobin 12.2 g/dL (12.0-15.5) Hematocrit 37.5 % (36.0-47.0) Mean Corpuscular Volume 74 fL (79-100) Mean Corpuscular Hemoglobin 24 pg (25-35) Mean Corpuscular Hemoglobin Concent 33 g/dL (31-37) Red Cell Distribution Width 21.1 % (11.5-14.5) Platelet Count 127 x10^3/uL (140-400) Neutrophils (%) (Auto) 62 % (31-73) Lymphocytes (%) (Auto) 26 % (24-48) Monocytes (%) (Auto) 11 % (0-9) Eosinophils (%) (Auto) 1 % (0-3) Basophils (%) (Auto) 1 % (0-3) Neutrophils # (Auto) 2.9 x10^3uL (1.8-7.7) Lymphocytes # (Auto) 1.2 x10^3/uL (1.0-4.8) Monocytes # (Auto) 0.5 x10^3/uL (0.0-1.1) Eosinophils # (Auto) 0.0 x10^3/uL (0.0-0.7) Basophils # (Auto) 0.0 x10^3/uL (0.0-0.2) Laboratory Tests Test 07/17/18 12:01 07/17/18 12:55 07/17/18 13:40 Glucose (Fingerstick) 88 mg/dL (70-99) Sodium Level 139 mmol/L (136-145) Potassium Level 4.5 mmol/L (3.5-5.1) Chloride Level 106 mmol/L (98-107) Carbon Dioxide Level 24 mmol/L (21-32) Anion Gap 9 (6-14) Blood Urea Nitrogen 15 mg/dL (7-20) Creatinine 1.1 mg/dL (0.6-1.0) Estimated GFR (Cockcroft-Gault) 60.5 Glucose Level 97 mg/dL (70-99) Calcium Level 9.2 mg/dL (8.5-10.1) Triglycerides Level 80 mg/dL (0-150) Cholesterol Level 279 mg/dL (0-200) LDL Cholesterol, Calculated 199 mg/dL (0-100) VLDL Cholesterol, Calculated 16 mg/dL (0-40) Non-HDL Cholesterol Calculated 215 mg/dL (0-129) HDL Cholesterol 64 mg/dL (40-60) Cholesterol/HDL Ratio 4.4 White Blood Count 4.7 x10^3/uL (4.0-11.0) Red Blood Count 5.05 x10^6/uL (3.50-5.40) Hemoglobin 12.2 g/dL (12.0-15.5) Hematocrit 37.5 % (36.0-47.0) Mean Corpuscular Volume 74 fL (79-100) Mean Corpuscular Hemoglobin 24 pg (25-35) Mean Corpuscular Hemoglobin Concent 33 g/dL (31-37) Red Cell Distribution Width 21.1 % (11.5-14.5) Platelet Count 127 x10^3/uL (140-400) Neutrophils (%) (Auto) 62 % (31-73) Lymphocytes (%) (Auto) 26 % (24-48) Monocytes (%) (Auto) 11 % (0-9) Eosinophils (%) (Auto) 1 % (0-3) Basophils (%) (Auto) 1 % (0-3) Neutrophils # (Auto) 2.9 x10^3uL (1.8-7.7) Lymphocytes # (Auto) 1.2 x10^3/uL (1.0-4.8) Monocytes # (Auto) 0.5 x10^3/uL (0.0-1.1) Eosinophils # (Auto) 0.0 x10^3/uL (0.0-0.7) Basophils # (Auto) 0.0 x10^3/uL (0.0-0.2) Microbiology 07/16/18 Blood Culture - Preliminary, Resulted NO GROWTH AFTER 2 DAYS Medications Current Medications Labetalol HCl (Normodyne Iv Push) 10 mg 1X ONCE IVP Last administered on at 00:29; Start 07/16/18 at 00:30; Stop 07/16/18 at 00:31; Status DC Lorazepam (Ativan) 2 mg 1X ONCE IV Last administered on 07/16/18at 00:24; Start 07/16/18 at 00:30; Stop 07/16/18 at 00:31; Status DC Morphine Sulfate (Morphine Sulfate) 4 mg STK-MED ONCE .ROUTE ; Start 07/16/18 at 02:01; Stop 07/16/18 at 02:02; Status DC Levetiracetam 1000 mg/Dextrose 110 ml @ 440 mls/hr 1X ONCE IV Last administered on 07/16/18at 03:02; Start 07/16/18 at 03:30; Stop 07/16/18 at 03:45 ; Status DC Ondansetron HCl (Zofran) 4 mg PRN Q8HRS PRN IV NAUSEA/VOMITING 1ST CHOICE; Start 07/16/18 at 03:15; Stop 07/17/18 at 03:14; Status DC Sodium Chloride 1,000 ml @ 125 mls/hr Q8H IV Last administered on 07/16/18at 05 :54; Start 07/16/18 at 03:04; Stop 07/16/18 at 15:11; Status DC Lorazepam (Ativan) 2 mg PRN Q4HRS PRN IV seizure; Start 07/16/18 at 04:00 Info (FLU VACCINE SCREEN per RX) 1 each PRN DAILY PRN [facility] UNABLE TO RESPOND; Start 07/16/18 at 05:15 Amlodipine Besylate (Norvasc) 5 mg DAILY PO ; Start 07/16/18 at 13:00; Stop 05/25 at 10:33; Status DC Acetaminophen/ Hydrocodone Bitart (Lortab 5/325) 1 tab PRN Q6HRS PRN PO PAIN; Start 07/16/18 at 13:00 Simvastatin (Zocor) 10 mg HS PO ; Start 07/16/18 at 21:00 Non-Formulary Medication (Albuterol Sulfate (Proair Hfa Inhaler)) 2 puff PRN Q4- 6HRS IH ; Start 07/16/18 at 13:00; Status UNV Famotidine (Pepcid) 20 mg HS PO ; Start 07/16/18 at 21:00 Albuterol Sulfate (Ventolin Neb Soln) 2.5 mg PRN Q4HRS PRN NEB SHORTNESS OF BREATH; Start 07/16/18 at 13:15 Doxycycline Hyclate 100 mg/ Dextrose 100 ml @ 50 mls/hr Q12HR IV Last administered on 07/17/18at 08:13; Start 07/16/18 at 14:00; Stop 07/17/18 at 10: 31; Status DC Lacosamide 100 mg/ Dextrose 60 ml @ 120 mls/hr BID IV Last administered on 05/25at 21:28; Start 07/16/18 at 15:00; Stop 07/18/18 at 09:28; Status DC Thiamine HCl 100 mg/Dextrose 51 ml @ 102 mls/hr DAILY IV Last administered on 07/17/18at 08:13; Start 07/16/18 at 15:00; Stop 07/17/18 at 10:31; Status DC Sodium Chloride 1,000 ml @ 75 mls/hr [id number] IV Last administered on at 15:15; Start 07/16/18 at 15:15; Stop 07/17/18 at 10:31; Status DC Labetalol HCl (Normodyne Iv Push) 10 mg PRN Q4HRS PRN IVP HYPERTENSION, SEE COMMENTS Last administered on 07/18/18at 03:14; Start 07/16/18 at 16:00 Aspirin (Fidelina Aspirin) 325 mg DAILYWBKFT PO Last administered on 07/18/18at 10 :48; Start 07/16/18 at 18:00 Ondansetron HCl (Zofran) 4 mg PRN Q6HRS PRN IV NAUSEA/VOMITING; Start at 10:30 Thiamine Mononitrate (Vitamin B-1) 100 mg DAILY PO ; Start 07/18/18 at 09:00; Stop 07/18/18 at 09:00; Status DC Acetaminophen (Tylenol) 500 mg PRN Q6HRS PRN PO MILD PAIN / TEMP; Start at 10:30 Ibuprofen (Motrin) 400 mg PRN Q6HRS PRN PO INFLAMMATION; Start 07/17/18 at 10: 30 Thiamine HCl 100 mg/Dextrose 51 ml @ 102 mls/hr DAILY IV ; Start 07/18/18 at 09:00; Stop 07/18/18 at 09:28; Status DC Amlodipine Besylate (Norvasc) 10 mg DAILY PO Last administered on 07/18/18at 10 :49; Start 07/18/18 at 09:00 Levetiracetam (Keppra) 500 mg BID PO ; Start 07/18/18 at 21:00 Thiamine Mononitrate (Vitamin B-1) 100 mg DAILY PO ; Start 07/19/18 at 09:00 Active Scripts Active Hydrocodone-Apap 5-325 (Hydrocodone Bit/Acetaminophen) 1 Each Tablet 1 Tab PO PRN Q4HRS PRN Flagyl (Metronidazole) 500 Mg Tablet 500 Mg PO Q12HR 5 Days Levaquin (Levofloxacin) 500 Mg Tablet 500 Mg PO DAILY06 5 Days Amlodipine Besylate 5 Mg Tablet 5 Mg PO DAILY Reported Ranitidine Hcl 150 Mg Capsule 1 Cap PO BID Ativan (Lorazepam) 0.5 Mg Tablet 0.5 Mg PO PRN PRN Lortab 5-325 mg Tablet (Hydrocodone/Acetaminophen) 1 Each Tablet 1 Tab PO PRN Q6HRS PRN Simvastatin 10 Mg Tablet 10 Mg PO HS Proair Hfa Inhaler (Albuterol Sulfate) 8.5 Gm Hfa.aer.ad 2 Puff IH PRN Q4-6HRS Vitals/I & O Vital Sign - Last 24 Hours 07/17/18 07/17/18 07/17/18 07/17/18 14:49 19:15 19:45 19:55 Temp 98.2 97.8 98.2 97.8 Pulse 68 71 71 Resp 20 20 B/P (MAP) 187/81 (116) 182/94 (123) 182/94 Pulse Ox 95 95 O2 Delivery Room Air Room Air Room Air O2 Flow Rate 07/17/18 07/18/18 07/18/18 07/18/18 22:45 02:55 03:14 03:48 Temp 98.8 98.6 98.8 98.6 Pulse 63 61 64 59 Resp 18 18 B/P (MAP) 163/89 (113) 191/84 (119) 191/84 165/74 (104) Pulse Ox 96 95 O2 Delivery Room Air Room Air 07/18/18 07/18/18 07/18/18 07/18/18 07:00 08:00 09:15 10:49 Temp 97.8 97.8 Pulse 67 64 Resp 18 B/P (MAP) 133/88 (103) 182/75 Pulse Ox 97 O2 Delivery Room Air Room Air Room Air O2 Flow Rate 3.0 07/18/18 10:57 Temp 97.9 97.9 Pulse 64 Resp 18 B/P (MAP) 182/75 (110) Pulse Ox 96 O2 Delivery Room Air Intake and Output 07/17/18 07/17/18 07/18/18 15:00 23:00 07:00 Intake Total 0 ml Balance 0 ml RYLAND MCKINNON MD Jul 18, 2018 11:10
--- NOTE | 2018-07-18 11:14 | PDOC ---
PROGRESS NOTES Assessment Problems Medical Problems: (1) New onset seizure Status: Acute Toxic encephalopathy, Cocaine. Metabolic encephalopathy. Seizures, provoked.PLEDs on EEG, clinically better Renal failure. Hx of brain aneurysm, right carotid terminus, status-post clipping Patient refusing IV reinsertion Plan Hold on repeat EEG Discontinued Vimpat IV q12h Started oral levetiracetam Changed Vit B1 to oral No need for LP Subjective Feels better Objective Vital Signs Date Time Temp Pulse Resp B/P (MAP) Pulse Ox O2 Delivery O2 Flow Rate FiO2 07/18/18 10:57 97.9 64 18 182/75 (110) 96 Room Air 97.9 07/18/18 08:00 3.0 Intake and Output 07/18/18 07:00 Intake Total 0 ml Balance 0 ml Intake Oral 0 ml # Voids 4 PHYSICAL EXAM Alert. Oriented to place and person, month and year, knows name of President, names and repeats well, definitely more alert than yesterday PERRL. EOMI. CN: no focal findings. Muscle tone: normal. Muscle strength: 4/5 DTR: 2+ Plantar reflex: Flexor Gait: not examined in bed. Sensory exam: no abnormal findings. No cerebellar signs elicited. Review of Relevant I have reviewed the following items remi (where applicable) has been applied. Labs Laboratory Tests Test 07/16/18 11:59 07/16/18 13:40 07/16/18 14:05 07/16/18 17:03 Glucose (Fingerstick) 79 mg/dL (70-99) 71 mg/dL (70-99) Sodium Level 142 mmol/L (136-145) Potassium Level 4.9 mmol/L (3.5-5.1) Chloride Level 107 mmol/L (98-107) Carbon Dioxide Level 24 mmol/L (21-32) Anion Gap 11 (6-14) Blood Urea Nitrogen 23 mg/dL (7-20) Creatinine 1.3 mg/dL (0.6-1.0) Estimated GFR (Cockcroft-Gault) 49.9 BUN/Creatinine Ratio 18 (6-20) Glucose Level 90 mg/dL (70-99) Lactic Acid Level 0.6 mmol/L (0.4-2.0) Calcium Level 8.5 mg/dL (8.5-10.1) Total Bilirubin 0.2 mg/dL (0.2-1.0) Aspartate Amino Transf (AST/SGOT) 22 U/L (15-37) Alanine Aminotransferase (ALT/SGPT) 21 U/L (14-59) Alkaline Phosphatase 89 U/L (46-116) Total Protein 6.9 g/dL (6.4-8.2) Albumin 3.2 g/dL (3.4-5.0) Albumin/Globulin Ratio 0.9 (1.0-1.7) Vitamin B12 Level 372 pg/mL (247-911) Thyroid Stimulating Hormone (TSH) 0.967 uIU/mL (0.358-3.74) Salicylates Level < 2.8 mg/dL (2.8-20.0) Salicylate Last Dose Date 07/16/18 Salicylate Last Dose Time 0000 Acetaminophen Level < 2 mcg/ml (10-30) Acetaminophen Last Dose Date 07/16/18 Acetaminophen Last Dose Time 0000 O2 Saturation 97 % (92-99) Arterial Blood pH 7.36 (7.35-7.45) Arterial Blood pCO2 at Patient Temp 39 mmHg (35-46) Arterial Blood pO2 at Patient Temp 104 mmHg (65-108) Arterial Blood HCO3 22 mmol/L (21-28) Arterial Blood Base Excess -3 mmol/L (-3-3) FiO2 28 Test 07/16/18 19:32 07/17/18 07:55 07/17/18 12:01 07/17/18 12:55 Glucose (Fingerstick) 104 mg/dL (70-99) 82 mg/dL (70-99) 88 mg/dL (70-99) Sodium Level 139 mmol/L (136-145) Potassium Level 4.5 mmol/L (3.5-5.1) Chloride Level 106 mmol/L (98-107) Carbon Dioxide Level 24 mmol/L (21-32) Anion Gap 9 (6-14) Blood Urea Nitrogen 15 mg/dL (7-20) Creatinine 1.1 mg/dL (0.6-1.0) Estimated GFR (Cockcroft-Gault) 60.5 Glucose Level 97 mg/dL (70-99) Calcium Level 9.2 mg/dL (8.5-10.1) Triglycerides Level 80 mg/dL (0-150) Cholesterol Level 279 mg/dL (0-200) LDL Cholesterol, Calculated 199 mg/dL (0-100) VLDL Cholesterol, Calculated 16 mg/dL (0-40) Non-HDL Cholesterol Calculated 215 mg/dL (0-129) HDL Cholesterol 64 mg/dL (40-60) Cholesterol/HDL Ratio 4.4 Test 07/17/18 13:40 White Blood Count 4.7 x10^3/uL (4.0-11.0) Red Blood Count 5.05 x10^6/uL (3.50-5.40) Hemoglobin 12.2 g/dL (12.0-15.5) Hematocrit 37.5 % (36.0-47.0) Mean Corpuscular Volume 74 fL (79-100) Mean Corpuscular Hemoglobin 24 pg (25-35) Mean Corpuscular Hemoglobin Concent 33 g/dL (31-37) Red Cell Distribution Width 21.1 % (11.5-14.5) Platelet Count 127 x10^3/uL (140-400) Neutrophils (%) (Auto) 62 % (31-73) Lymphocytes (%) (Auto) 26 % (24-48) Monocytes (%) (Auto) 11 % (0-9) Eosinophils (%) (Auto) 1 % (0-3) Basophils (%) (Auto) 1 % (0-3) Neutrophils # (Auto) 2.9 x10^3uL (1.8-7.7) Lymphocytes # (Auto) 1.2 x10^3/uL (1.0-4.8) Monocytes # (Auto) 0.5 x10^3/uL (0.0-1.1) Eosinophils # (Auto) 0.0 x10^3/uL (0.0-0.7) Basophils # (Auto) 0.0 x10^3/uL (0.0-0.2) Laboratory Tests Test 07/17/18 12:01 07/17/18 12:55 07/17/18 13:40 Glucose (Fingerstick) 88 mg/dL (70-99) Sodium Level 139 mmol/L (136-145) Potassium Level 4.5 mmol/L (3.5-5.1) Chloride Level 106 mmol/L (98-107) Carbon Dioxide Level 24 mmol/L (21-32) Anion Gap 9 (6-14) Blood Urea Nitrogen 15 mg/dL (7-20) Creatinine 1.1 mg/dL (0.6-1.0) Estimated GFR (Cockcroft-Gault) 60.5 Glucose Level 97 mg/dL (70-99) Calcium Level 9.2 mg/dL (8.5-10.1) Triglycerides Level 80 mg/dL (0-150) Cholesterol Level 279 mg/dL (0-200) LDL Cholesterol, Calculated 199 mg/dL (0-100) VLDL Cholesterol, Calculated 16 mg/dL (0-40) Non-HDL Cholesterol Calculated 215 mg/dL (0-129) HDL Cholesterol 64 mg/dL (40-60) Cholesterol/HDL Ratio 4.4 White Blood Count 4.7 x10^3/uL (4.0-11.0) Red Blood Count 5.05 x10^6/uL (3.50-5.40) Hemoglobin 12.2 g/dL (12.0-15.5) Hematocrit 37.5 % (36.0-47.0) Mean Corpuscular Volume 74 fL (79-100) Mean Corpuscular Hemoglobin 24 pg (25-35) Mean Corpuscular Hemoglobin Concent 33 g/dL (31-37) Red Cell Distribution Width 21.1 % (11.5-14.5) Platelet Count 127 x10^3/uL (140-400) Neutrophils (%) (Auto) 62 % (31-73) Lymphocytes (%) (Auto) 26 % (24-48) Monocytes (%) (Auto) 11 % (0-9) Eosinophils (%) (Auto) 1 % (0-3) Basophils (%) (Auto) 1 % (0-3) Neutrophils # (Auto) 2.9 x10^3uL (1.8-7.7) Lymphocytes # (Auto) 1.2 x10^3/uL (1.0-4.8) Monocytes # (Auto) 0.5 x10^3/uL (0.0-1.1) Eosinophils # (Auto) 0.0 x10^3/uL (0.0-0.7) Basophils # (Auto) 0.0 x10^3/uL (0.0-0.2) Microbiology 07/16/18 Blood Culture - Preliminary, Resulted NO GROWTH AFTER 2 DAYS Medications Current Medications Labetalol HCl (Normodyne Iv Push) 10 mg 1X ONCE IVP Last administered on at 00:29; Start 07/16/18 at 00:30; Stop 07/16/18 at 00:31; Status DC Lorazepam (Ativan) 2 mg 1X ONCE IV Last administered on 07/16/18at 00:24; Start 07/16/18 at 00:30; Stop 07/16/18 at 00:31; Status DC Morphine Sulfate (Morphine Sulfate) 4 mg STK-MED ONCE .ROUTE ; Start 07/16/18 at 02:01; Stop 07/16/18 at 02:02; Status DC Levetiracetam 1000 mg/Dextrose 110 ml @ 440 mls/hr 1X ONCE IV Last administered on 07/16/18at 03:02; Start 07/16/18 at 03:30; Stop 07/16/18 at 03:45 ; Status DC Ondansetron HCl (Zofran) 4 mg PRN Q8HRS PRN IV NAUSEA/VOMITING 1ST CHOICE; Start 07/16/18 at 03:15; Stop 07/17/18 at 03:14; Status DC Sodium Chloride 1,000 ml @ 125 mls/hr Q8H IV Last administered on 07/16/18at 05 :54; Start 07/16/18 at 03:04; Stop 07/16/18 at 15:11; Status DC Lorazepam (Ativan) 2 mg PRN Q4HRS PRN IV seizure; Start 07/16/18 at 04:00 Info (FLU VACCINE SCREEN per RX) 1 each PRN DAILY PRN [facility] UNABLE TO RESPOND; Start 07/16/18 at 05:15 Amlodipine Besylate (Norvasc) 5 mg DAILY PO ; Start 07/16/18 at 13:00; Stop 05/25 at 10:33; Status DC Acetaminophen/ Hydrocodone Bitart (Lortab 5/325) 1 tab PRN Q6HRS PRN PO PAIN; Start 07/16/18 at 13:00 Simvastatin (Zocor) 10 mg HS PO ; Start 07/16/18 at 21:00 Non-Formulary Medication (Albuterol Sulfate (Proair Hfa Inhaler)) 2 puff PRN Q4- 6HRS IH ; Start 07/16/18 at 13:00; Status UNV Famotidine (Pepcid) 20 mg HS PO ; Start 07/16/18 at 21:00 Albuterol Sulfate (Ventolin Neb Soln) 2.5 mg PRN Q4HRS PRN NEB SHORTNESS OF BREATH; Start 07/16/18 at 13:15 Doxycycline Hyclate 100 mg/ Dextrose 100 ml @ 50 mls/hr Q12HR IV Last administered on 07/17/18at 08:13; Start 07/16/18 at 14:00; Stop 07/17/18 at 10: 31; Status DC Lacosamide 100 mg/ Dextrose 60 ml @ 120 mls/hr BID IV Last administered on 05/25at 21:28; Start 07/16/18 at 15:00; Stop 07/18/18 at 09:28; Status DC Thiamine HCl 100 mg/Dextrose 51 ml @ 102 mls/hr DAILY IV Last administered on 07/17/18at 08:13; Start 07/16/18 at 15:00; Stop 07/17/18 at 10:31; Status DC Sodium Chloride 1,000 ml @ 75 mls/hr [id number] IV Last administered on at 15:15; Start 07/16/18 at 15:15; Stop 07/17/18 at 10:31; Status DC Labetalol HCl (Normodyne Iv Push) 10 mg PRN Q4HRS PRN IVP HYPERTENSION, SEE COMMENTS Last administered on 07/18/18at 03:14; Start 07/16/18 at 16:00 Aspirin (Fidelina Aspirin) 325 mg DAILYWBKFT PO Last administered on 07/18/18at 10 :48; Start 07/16/18 at 18:00 Ondansetron HCl (Zofran) 4 mg PRN Q6HRS PRN IV NAUSEA/VOMITING; Start at 10:30 Thiamine Mononitrate (Vitamin B-1) 100 mg DAILY PO ; Start 07/18/18 at 09:00; Stop 07/18/18 at 09:00; Status DC Acetaminophen (Tylenol) 500 mg PRN Q6HRS PRN PO MILD PAIN / TEMP; Start at 10:30 Ibuprofen (Motrin) 400 mg PRN Q6HRS PRN PO INFLAMMATION; Start 07/17/18 at 10: 30 Thiamine HCl 100 mg/Dextrose 51 ml @ 102 mls/hr DAILY IV ; Start 07/18/18 at 09:00; Stop 07/18/18 at 09:28; Status DC Amlodipine Besylate (Norvasc) 10 mg DAILY PO Last administered on 07/18/18at 10 :49; Start 07/18/18 at 09:00 Levetiracetam (Keppra) 500 mg BID PO ; Start 07/18/18 at 21:00 Thiamine Mononitrate (Vitamin B-1) 100 mg DAILY PO ; Start 07/19/18 at 09:00 Active Scripts Active Hydrocodone-Apap 5-325 (Hydrocodone Bit/Acetaminophen) 1 Each Tablet 1 Tab PO PRN Q4HRS PRN Flagyl (Metronidazole) 500 Mg Tablet 500 Mg PO Q12HR 5 Days Levaquin (Levofloxacin) 500 Mg Tablet 500 Mg PO DAILY06 5 Days Amlodipine Besylate 5 Mg Tablet 5 Mg PO DAILY Reported Ranitidine Hcl 150 Mg Capsule 1 Cap PO BID Ativan (Lorazepam) 0.5 Mg Tablet 0.5 Mg PO PRN PRN Lortab 5-325 mg Tablet (Hydrocodone/Acetaminophen) 1 Each Tablet 1 Tab PO PRN Q6HRS PRN Simvastatin 10 Mg Tablet 10 Mg PO HS Proair Hfa Inhaler (Albuterol Sulfate) 8.5 Gm Hfa.aer.ad 2 Puff IH PRN Q4-6HRS Vitals/I & O Vital Sign - Last 24 Hours 07/17/18 07/17/18 07/17/18 07/17/18 14:49 19:15 19:45 19:55 Temp 98.2 97.8 98.2 97.8 Pulse 68 71 71 Resp 20 20 B/P (MAP) 187/81 (116) 182/94 (123) 182/94 Pulse Ox 95 95 O2 Delivery Room Air Room Air Room Air O2 Flow Rate 07/17/18 07/18/18 07/18/18 07/18/18 22:45 02:55 03:14 03:48 Temp 98.8 98.6 98.8 98.6 Pulse 63 61 64 59 Resp 18 18 B/P (MAP) 163/89 (113) 191/84 (119) 191/84 165/74 (104) Pulse Ox 96 95 O2 Delivery Room Air Room Air 07/18/18 07/18/18 07/18/18 07/18/18 07:00 08:00 09:15 10:49 Temp 97.8 97.8 Pulse 67 64 Resp 18 B/P (MAP) 133/88 (103) 182/75 Pulse Ox 97 O2 Delivery Room Air Room Air Room Air O2 Flow Rate 3.0 07/18/18 10:57 Temp 97.9 97.9 Pulse 64 Resp 18 B/P (MAP) 182/75 (110) Pulse Ox 96 O2 Delivery Room Air Intake and Output 07/17/18 07/17/18 07/18/18 15:00 23:00 07:00 Intake Total 0 ml Balance 0 ml MADY OH MD Jul 18, 2018 11:14
[2018-07-18] MEDS: levETIRAcetam 500 MG TABLET PO SCH (21:24)
[2018-07-18] MEDS: SIMVASTATIN 10 MG TABLET PO SCH (21:24)
[2018-07-18] MEDS: FAMOTIDINE 20 MG TABLET. PO SCH (21:24)
[2018-07-19 03:50] VITALS: BP 192/88
[2018-07-19] MEDS: LABETALOL 20 MG/4 ML DISP.SYRIN. IVP PRN ×2 (04:50→21:47)
[2018-07-19 07:42] VITALS: BP 153/86
[2018-07-19] MEDS: ASPIRIN 325 MG TABLET PO SCH (08:41)
[2018-07-19] MEDS: levETIRAcetam 500 MG TABLET PO SCH ×2 (08:42→18:55)
[2018-07-19] MEDS: THIAMINE 100 MG TABLET. PO SCH (08:42)
[2018-07-19] MEDS: amLODIPine BESYLATE 10 MG TABLET PO SCH (08:42)
--- NOTE | 2018-07-19 09:10 | PDOC ---
PROGRESS NOTES Chief Complaint Chief Complaint Toxic encephalopathy, Cocaine. Metabolic encephalopathy. Cocaine use/abuse likely. Lactic acidosis. Seizures, provoked. Renal failure. Hx of brain aneurysm? DM. HTN. HLD. Tremor like movements. Cocaine positive. History of Present Illness History of Present Illness Admitted initially for seizure and concern for cocaine intoxication, she is awake and alert as of 07/18/18 Had an EEG 07/17/18 - seen by neurology Neurology has shifted to by mouth thiamine and by mouth Eddy Last night had some shaking and unresponsiveness per night staff, consistent with seizure history. Some confusion evident but stable clinically, seen by neuro this morning. She wishes to eat and is asking for a discharge. plan: Await PT OT so that we can know discharge disposition Sister is her nearest next of kin Podiatry consult for toenail clipping Seizure precaution Discussed with RN at bedside Vitals Vitals Vital Signs Date Time Temp Pulse Resp B/P (MAP) Pulse Ox O2 Delivery O2 Flow Rate FiO2 07/19/18 08:42 61 153/86 07/19/18 07:42 97.4 16 99 Room Air 97.4 07/18/18 08:00 3.0 Physical Exam General: Alert, Oriented X3, Cooperative, No acute distress Heart: Regular rate, Normal S1, Normal S2, No murmurs Lungs: Clear Abdomen: Normal bowel sounds, Soft, No tenderness Extremities: No clubbing, No cyanosis, No edema Skin: No rashes, No breakdown, No significant lesion Labs LABS Laboratory Tests Test 07/19/18 08:00 Glucose (Fingerstick) 81 mg/dL (70-99) Assessment and Plan Assessmemt and Plan Problems Medical Problems: (1) New onset seizure Status: Acute Comment Review of Relevant I have reviewed the following items remi (where applicable) has been applied. Labs Laboratory Tests Test 07/17/18 12:01 07/17/18 12:55 07/17/18 13:40 07/19/18 08:00 Glucose (Fingerstick) 88 mg/dL (70-99) 81 mg/dL (70-99) Sodium Level 139 mmol/L (136-145) Potassium Level 4.5 mmol/L (3.5-5.1) Chloride Level 106 mmol/L (98-107) Carbon Dioxide Level 24 mmol/L (21-32) Anion Gap 9 (6-14) Blood Urea Nitrogen 15 mg/dL (7-20) Creatinine 1.1 mg/dL (0.6-1.0) Estimated GFR (Cockcroft-Gault) 60.5 Glucose Level 97 mg/dL (70-99) Calcium Level 9.2 mg/dL (8.5-10.1) Triglycerides Level 80 mg/dL (0-150) Cholesterol Level 279 mg/dL (0-200) LDL Cholesterol, Calculated 199 mg/dL (0-100) VLDL Cholesterol, Calculated 16 mg/dL (0-40) Non-HDL Cholesterol Calculated 215 mg/dL (0-129) HDL Cholesterol 64 mg/dL (40-60) Cholesterol/HDL Ratio 4.4 White Blood Count 4.7 x10^3/uL (4.0-11.0) Red Blood Count 5.05 x10^6/uL (3.50-5.40) Hemoglobin 12.2 g/dL (12.0-15.5) Hematocrit 37.5 % (36.0-47.0) Mean Corpuscular Volume 74 fL (79-100) Mean Corpuscular Hemoglobin 24 pg (25-35) Mean Corpuscular Hemoglobin Concent 33 g/dL (31-37) Red Cell Distribution Width 21.1 % (11.5-14.5) Platelet Count 127 x10^3/uL (140-400) Neutrophils (%) (Auto) 62 % (31-73) Lymphocytes (%) (Auto) 26 % (24-48) Monocytes (%) (Auto) 11 % (0-9) Eosinophils (%) (Auto) 1 % (0-3) Basophils (%) (Auto) 1 % (0-3) Neutrophils # (Auto) 2.9 x10^3uL (1.8-7.7) Lymphocytes # (Auto) 1.2 x10^3/uL (1.0-4.8) Monocytes # (Auto) 0.5 x10^3/uL (0.0-1.1) Eosinophils # (Auto) 0.0 x10^3/uL (0.0-0.7) Basophils # (Auto) 0.0 x10^3/uL (0.0-0.2) Laboratory Tests Test 07/19/18 08:00 Glucose (Fingerstick) 81 mg/dL (70-99) Microbiology 07/16/18 Blood Culture - Preliminary, Resulted NO GROWTH AFTER 3 DAYS Medications Current Medications Labetalol HCl (Normodyne Iv Push) 10 mg 1X ONCE IVP Last administered on at 00:29; Start 07/16/18 at 00:30; Stop 07/16/18 at 00:31; Status DC Lorazepam (Ativan) 2 mg 1X ONCE IV Last administered on 07/16/18at 00:24; Start 07/16/18 at 00:30; Stop 07/16/18 at 00:31; Status DC Morphine Sulfate (Morphine Sulfate) 4 mg STK-MED ONCE .ROUTE ; Start 07/16/18 at 02:01; Stop 07/16/18 at 02:02; Status DC Levetiracetam 1000 mg/Dextrose 110 ml @ 440 mls/hr 1X ONCE IV Last administered on 07/16/18at 03:02; Start 07/16/18 at 03:30; Stop 07/16/18 at 03:45 ; Status DC Ondansetron HCl (Zofran) 4 mg PRN Q8HRS PRN IV NAUSEA/VOMITING 1ST CHOICE; Start 07/16/18 at 03:15; Stop 07/17/18 at 03:14; Status DC Sodium Chloride 1,000 ml @ 125 mls/hr Q8H IV Last administered on 07/16/18at 05 :54; Start 07/16/18 at 03:04; Stop 07/16/18 at 15:11; Status DC Lorazepam (Ativan) 2 mg PRN Q4HRS PRN IV seizure; Start 07/16/18 at 04:00 Info (FLU VACCINE SCREEN per RX) 1 each PRN DAILY PRN [facility] UNABLE TO RESPOND; Start 07/16/18 at 05:15; Status Cancel Amlodipine Besylate (Norvasc) 5 mg DAILY PO ; Start 07/16/18 at 13:00; Stop 05/25 at 10:33; Status DC Acetaminophen/ Hydrocodone Bitart (Lortab 5/325) 1 tab PRN Q6HRS PRN PO MODERATE TO SEVERE PAIN; Start 07/16/18 at 13:00 Simvastatin (Zocor) 10 mg HS PO Last administered on 07/18/18at 21:24; Start 07/16/18 at 21:00 Non-Formulary Medication (Albuterol Sulfate (Proair Hfa Inhaler)) 2 puff PRN Q4- 6HRS IH ; Start 07/16/18 at 13:00; Status UNV Famotidine (Pepcid) 20 mg HS PO Last administered on 07/18/18at 21:24; Start 07/16/18 at 21:00 Albuterol Sulfate (Ventolin Neb Soln) 2.5 mg PRN Q4HRS PRN NEB SHORTNESS OF BREATH; Start 07/16/18 at 13:15 Doxycycline Hyclate 100 mg/ Dextrose 100 ml @ 50 mls/hr Q12HR IV Last administered on 07/17/18at 08:13; Start 07/16/18 at 14:00; Stop 07/17/18 at 10: 31; Status DC Lacosamide 100 mg/ Dextrose 60 ml @ 120 mls/hr BID IV Last administered on 05/25at 21:28; Start 07/16/18 at 15:00; Stop 07/18/18 at 09:28; Status DC Thiamine HCl 100 mg/Dextrose 51 ml @ 102 mls/hr DAILY IV Last administered on 07/17/18at 08:13; Start 07/16/18 at 15:00; Stop 07/17/18 at 10:31; Status DC Sodium Chloride 1,000 ml @ 75 mls/hr [id number] IV Last administered on at 15:15; Start 07/16/18 at 15:15; Stop 07/17/18 at 10:31; Status DC Labetalol HCl (Normodyne Iv Push) 10 mg PRN Q4HRS PRN IVP HYPERTENSION, SEE COMMENTS Last administered on 07/19/18at 04:50; Start 07/16/18 at 16:00 Aspirin (Fidelina Aspirin) 325 mg DAILYWBKFT PO Last administered on 07/19/18at 08 :41; Start 07/16/18 at 18:00 Ondansetron HCl (Zofran) 4 mg PRN Q6HRS PRN IV NAUSEA/VOMITING; Start at 10:30 Thiamine Mononitrate (Vitamin B-1) 100 mg DAILY PO ; Start 07/18/18 at 09:00; Stop 07/18/18 at 09:00; Status DC Acetaminophen (Tylenol) 500 mg PRN Q6HRS PRN PO MILD PAIN / TEMP; Start at 10:30 Ibuprofen (Motrin) 400 mg PRN Q6HRS PRN PO INFLAMMATION; Start 07/17/18 at 10: 30 Thiamine HCl 100 mg/Dextrose 51 ml @ 102 mls/hr DAILY IV ; Start 07/18/18 at 09:00; Stop 07/18/18 at 09:28; Status DC Amlodipine Besylate (Norvasc) 10 mg DAILY PO Last administered on 07/19/18at 08 :42; Start 07/18/18 at 09:00 Levetiracetam (Keppra) 500 mg BID PO Last administered on 07/19/18at 08:42; Start 07/18/18 at 21:00 Thiamine Mononitrate (Vitamin B-1) 100 mg DAILY PO Last administered on at 08:42; Start 07/19/18 at 09:00 Influenza Virus Vaccine (Afluria Trivalent [id number] Syringe) 0.5 ml ONCE ONCE VAX IM ; Start 07/18/18 at 17:00; Stop 07/18/18 at 17:01; Status DC Active Scripts Active Hydrocodone-Apap 5-325 (Hydrocodone Bit/Acetaminophen) 1 Each Tablet 1 Tab PO PRN Q4HRS PRN Flagyl (Metronidazole) 500 Mg Tablet 500 Mg PO Q12HR 5 Days Levaquin (Levofloxacin) 500 Mg Tablet 500 Mg PO DAILY06 5 Days Amlodipine Besylate 5 Mg Tablet 5 Mg PO DAILY Reported Ranitidine Hcl 150 Mg Capsule 1 Cap PO BID Ativan (Lorazepam) 0.5 Mg Tablet 0.5 Mg PO PRN PRN Lortab 5-325 mg Tablet (Hydrocodone/Acetaminophen) 1 Each Tablet 1 Tab PO PRN Q6HRS PRN Simvastatin 10 Mg Tablet 10 Mg PO HS Proair Hfa Inhaler (Albuterol Sulfate) 8.5 Gm Hfa.aer.ad 2 Puff IH PRN Q4-6HRS Vitals/I & O Vital Sign - Last 24 Hours 07/18/18 07/18/18 07/18/18 07/18/18 09:15 10:49 10:57 14:51 Temp 97.9 98.6 97.9 98.6 Pulse 64 64 69 Resp 18 18 B/P (MAP) 182/75 182/75 (110) 163/84 (110) Pulse Ox 96 95 O2 Delivery Room Air Room Air Room Air 07/18/18 07/18/18 07/18/18 07/18/18 16:50 18:25 19:25 19:46 Temp 97.7 97.7 Pulse 73 62 64 Resp 18 B/P (MAP) 178/88 167/86 (113) 187/88 (121) Pulse Ox 93 O2 Delivery Room Air Room Air 07/18/18 07/18/18 07/19/18 07/19/18 21:25 23:05 03:50 04:50 Temp 97.1 97.1 97.1 97.1 Pulse 64 61 57 60 Resp 18 18 B/P (MAP) 187/88 163/104 (123) 192/88 (122) 192/88 Pulse Ox 94 94 O2 Delivery Room Air Room Air 07/19/18 07/19/18 07:42 08:42 Temp 97.4 97.4 Pulse 61 61 Resp 16 B/P (MAP) 153/86 (108) 153/86 Pulse Ox 99 O2 Delivery Room Air Intake and Output 07/18/18 07/18/18 07/19/18 15:00 23:00 07:00 Intake Total 300 ml 100 ml Balance 300 ml 100 ml ADRIENNE BEAL MD Jul 19, 2018 09:10
[2018-07-19 11:40] VITALS: BP 158/87
--- NOTE | 2018-07-19 12:26 | PDOC ---
PROGRESS NOTES Assessment Problems Medical Problems: (1) New onset seizure Status: Acute Toxic encephalopathy, cocaine. Metabolic encephalopathy. Seizures, provoked.PLEDs on EEG, 07/17, clinically better. May have had an episode of partial seizure last night Renal failure. Hx of brain aneurysm, right carotid terminus, status-post clipping Plan Hold on repeat EEG Oral levetiracetam Possible discharge today if stable Follow-up with me or Dr. Jimenez in 6 weeks. Subjective No complaints, wants to go home Objective Vital Signs Date Time Temp Pulse Resp B/P (MAP) Pulse Ox O2 Delivery O2 Flow Rate FiO2 07/19/18 11:40 97.9 67 18 158/87 (110) 93 Room Air 97.9 07/18/18 08:00 3.0 Intake and Output 07/19/18 07:00 Intake Total 400 ml Balance 400 ml Intake Oral 400 ml # Voids 3 PHYSICAL EXAM Alert. Oriented to place and person, month and year, knows name of President, names and repeats well, bright and alert PERRL. EOMI. CN: no focal findings. Muscle tone: normal. Muscle strength: 4/5 DTR: 2+ Plantar reflex: Flexor Gait: apraxic Sensory exam: no abnormal findings. No cerebellar signs elicited. Review of Relevant I have reviewed the following items remi (where applicable) has been applied. Labs Laboratory Tests Test 07/17/18 12:55 07/17/18 13:40 07/19/18 08:00 07/19/18 11:11 Sodium Level 139 mmol/L (136-145) Potassium Level 4.5 mmol/L (3.5-5.1) Chloride Level 106 mmol/L (98-107) Carbon Dioxide Level 24 mmol/L (21-32) Anion Gap 9 (6-14) Blood Urea Nitrogen 15 mg/dL (7-20) Creatinine 1.1 mg/dL (0.6-1.0) Estimated GFR (Cockcroft-Gault) 60.5 Glucose Level 97 mg/dL (70-99) Calcium Level 9.2 mg/dL (8.5-10.1) Triglycerides Level 80 mg/dL (0-150) Cholesterol Level 279 mg/dL (0-200) LDL Cholesterol, Calculated 199 mg/dL (0-100) VLDL Cholesterol, Calculated 16 mg/dL (0-40) Non-HDL Cholesterol Calculated 215 mg/dL (0-129) HDL Cholesterol 64 mg/dL (40-60) Cholesterol/HDL Ratio 4.4 White Blood Count 4.7 x10^3/uL (4.0-11.0) Red Blood Count 5.05 x10^6/uL (3.50-5.40) Hemoglobin 12.2 g/dL (12.0-15.5) Hematocrit 37.5 % (36.0-47.0) Mean Corpuscular Volume 74 fL (79-100) Mean Corpuscular Hemoglobin 24 pg (25-35) Mean Corpuscular Hemoglobin Concent 33 g/dL (31-37) Red Cell Distribution Width 21.1 % (11.5-14.5) Platelet Count 127 x10^3/uL (140-400) Neutrophils (%) (Auto) 62 % (31-73) Lymphocytes (%) (Auto) 26 % (24-48) Monocytes (%) (Auto) 11 % (0-9) Eosinophils (%) (Auto) 1 % (0-3) Basophils (%) (Auto) 1 % (0-3) Neutrophils # (Auto) 2.9 x10^3uL (1.8-7.7) Lymphocytes # (Auto) 1.2 x10^3/uL (1.0-4.8) Monocytes # (Auto) 0.5 x10^3/uL (0.0-1.1) Eosinophils # (Auto) 0.0 x10^3/uL (0.0-0.7) Basophils # (Auto) 0.0 x10^3/uL (0.0-0.2) Glucose (Fingerstick) 81 mg/dL (70-99) 115 mg/dL (70-99) Laboratory Tests Test 07/19/18 08:00 07/19/18 11:11 Glucose (Fingerstick) 81 mg/dL (70-99) 115 mg/dL (70-99) Microbiology 07/16/18 Blood Culture - Preliminary, Resulted NO GROWTH AFTER 3 DAYS Medications Current Medications Labetalol HCl (Normodyne Iv Push) 10 mg 1X ONCE IVP Last administered on at 00:29; Start 07/16/18 at 00:30; Stop 07/16/18 at 00:31; Status DC Lorazepam (Ativan) 2 mg 1X ONCE IV Last administered on 07/16/18at 00:24; Start 07/16/18 at 00:30; Stop 07/16/18 at 00:31; Status DC Morphine Sulfate (Morphine Sulfate) 4 mg STK-MED ONCE .ROUTE ; Start 07/16/18 at 02:01; Stop 07/16/18 at 02:02; Status DC Levetiracetam 1000 mg/Dextrose 110 ml @ 440 mls/hr 1X ONCE IV Last administered on 07/16/18at 03:02; Start 07/16/18 at 03:30; Stop 07/16/18 at 03:45 ; Status DC Ondansetron HCl (Zofran) 4 mg PRN Q8HRS PRN IV NAUSEA/VOMITING 1ST CHOICE; Start 07/16/18 at 03:15; Stop 07/17/18 at 03:14; Status DC Sodium Chloride 1,000 ml @ 125 mls/hr Q8H IV Last administered on 07/16/18at 05 :54; Start 07/16/18 at 03:04; Stop 07/16/18 at 15:11; Status DC Lorazepam (Ativan) 2 mg PRN Q4HRS PRN IV seizure; Start 07/16/18 at 04:00 Info (FLU VACCINE SCREEN per RX) 1 each PRN DAILY PRN [facility] UNABLE TO RESPOND; Start 07/16/18 at 05:15; Status Cancel Amlodipine Besylate (Norvasc) 5 mg DAILY PO ; Start 07/16/18 at 13:00; Stop 05/25 at 10:33; Status DC Acetaminophen/ Hydrocodone Bitart (Lortab 5/325) 1 tab PRN Q6HRS PRN PO MODERATE TO SEVERE PAIN; Start 07/16/18 at 13:00 Simvastatin (Zocor) 10 mg HS PO Last administered on 07/18/18at 21:24; Start 07/16/18 at 21:00 Non-Formulary Medication (Albuterol Sulfate (Proair Hfa Inhaler)) 2 puff PRN Q4- 6HRS IH ; Start 07/16/18 at 13:00; Status UNV Famotidine (Pepcid) 20 mg HS PO Last administered on 07/18/18at 21:24; Start 07/16/18 at 21:00 Albuterol Sulfate (Ventolin Neb Soln) 2.5 mg PRN Q4HRS PRN NEB SHORTNESS OF BREATH; Start 07/16/18 at 13:15 Doxycycline Hyclate 100 mg/ Dextrose 100 ml @ 50 mls/hr Q12HR IV Last administered on 07/17/18at 08:13; Start 07/16/18 at 14:00; Stop 07/17/18 at 10: 31; Status DC Lacosamide 100 mg/ Dextrose 60 ml @ 120 mls/hr BID IV Last administered on 05/25at 21:28; Start 07/16/18 at 15:00; Stop 07/18/18 at 09:28; Status DC Thiamine HCl 100 mg/Dextrose 51 ml @ 102 mls/hr DAILY IV Last administered on 07/17/18at 08:13; Start 07/16/18 at 15:00; Stop 07/17/18 at 10:31; Status DC Sodium Chloride 1,000 ml @ 75 mls/hr [id number] IV Last administered on at 15:15; Start 07/16/18 at 15:15; Stop 07/17/18 at 10:31; Status DC Labetalol HCl (Normodyne Iv Push) 10 mg PRN Q4HRS PRN IVP HYPERTENSION, SEE COMMENTS Last administered on 07/19/18at 04:50; Start 07/16/18 at 16:00 Aspirin (Fidelina Aspirin) 325 mg DAILYWBKFT PO Last administered on 07/19/18at 08 :41; Start 07/16/18 at 18:00 Ondansetron HCl (Zofran) 4 mg PRN Q6HRS PRN IV NAUSEA/VOMITING; Start at 10:30 Thiamine Mononitrate (Vitamin B-1) 100 mg DAILY PO ; Start 07/18/18 at 09:00; Stop 07/18/18 at 09:00; Status DC Acetaminophen (Tylenol) 500 mg PRN Q6HRS PRN PO MILD PAIN / TEMP; Start at 10:30 Ibuprofen (Motrin) 400 mg PRN Q6HRS PRN PO INFLAMMATION; Start 07/17/18 at 10: 30 Thiamine HCl 100 mg/Dextrose 51 ml @ 102 mls/hr DAILY IV ; Start 07/18/18 at 09:00; Stop 07/18/18 at 09:28; Status DC Amlodipine Besylate (Norvasc) 10 mg DAILY PO Last administered on 07/19/18at 08 :42; Start 07/18/18 at 09:00 Levetiracetam (Keppra) 500 mg BID PO Last administered on 07/19/18at 08:42; Start 07/18/18 at 21:00 Thiamine Mononitrate (Vitamin B-1) 100 mg DAILY PO Last administered on at 08:42; Start 07/19/18 at 09:00 Influenza Virus Vaccine (Afluria Trivalent [id number] Syringe) 0.5 ml ONCE ONCE VAX IM ; Start 07/18/18 at 17:00; Stop 07/18/18 at 17:01; Status DC Active Scripts Active Hydrocodone-Apap 5-325 (Hydrocodone Bit/Acetaminophen) 1 Each Tablet 1 Tab PO PRN Q4HRS PRN Flagyl (Metronidazole) 500 Mg Tablet 500 Mg PO Q12HR 5 Days Levaquin (Levofloxacin) 500 Mg Tablet 500 Mg PO DAILY06 5 Days Amlodipine Besylate 5 Mg Tablet 5 Mg PO DAILY Reported Ranitidine Hcl 150 Mg Capsule 1 Cap PO BID Ativan (Lorazepam) 0.5 Mg Tablet 0.5 Mg PO PRN PRN Lortab 5-325 mg Tablet (Hydrocodone/Acetaminophen) 1 Each Tablet 1 Tab PO PRN Q6HRS PRN Simvastatin 10 Mg Tablet 10 Mg PO HS Proair Hfa Inhaler (Albuterol Sulfate) 8.5 Gm Hfa.aer.ad 2 Puff IH PRN Q4-6HRS Vitals/I & O Vital Sign - Last 24 Hours 07/18/18 07/18/18 07/18/18 07/18/18 14:51 16:50 18:25 19:25 Temp 98.6 97.7 98.6 97.7 Pulse 69 73 62 64 Resp 18 18 B/P (MAP) 163/84 (110) 178/88 167/86 (113) 187/88 (121) Pulse Ox 95 93 O2 Delivery Room Air Room Air 07/18/18 07/18/18 07/18/18 07/19/18 19:46 21:25 23:05 03:50 Temp 97.1 97.1 97.1 97.1 Pulse 64 61 57 Resp 18 18 B/P (MAP) 187/88 163/104 (123) 192/88 (122) Pulse Ox 94 94 O2 Delivery Room Air Room Air Room Air 07/19/18 07/19/18 07/19/18 07/19/18 04:50 07:42 08:00 08:42 Temp 97.4 97.4 Pulse 60 61 61 Resp 16 B/P (MAP) 192/88 153/86 (108) 153/86 Pulse Ox 99 O2 Delivery Room Air Room Air 07/19/18 11:40 Temp 97.9 97.9 Pulse 67 Resp 18 B/P (MAP) 158/87 (110) Pulse Ox 93 O2 Delivery Room Air Intake and Output 07/18/18 07/18/18 07/19/18 15:00 23:00 07:00 Intake Total 300 ml 100 ml Balance 300 ml 100 ml MADY OH MD Jul 19, 2018 12:26
[2018-07-19 15:29] VITALS: BP 165/87
[2018-07-19] MEDS: FAMOTIDINE 20 MG TABLET. PO SCH (18:55)
[2018-07-19] MEDS: SIMVASTATIN 10 MG TABLET PO SCH (18:55)
[2018-07-19 19:00] VITALS: BP 182/108
[2018-07-19] MEDS ORDERED: ZIPRASIDONE 20 MG CAPSULE PO ONE (19:00)
[2018-07-20] MEDS: ASPIRIN 325 MG TABLET PO SCH (08:00)
--- NOTE | 2018-07-20 08:55 | PDOC ---
PROGRESS NOTES Chief Complaint Chief Complaint Toxic encephalopathy, Cocaine. Metabolic encephalopathy. Cocaine use/abuse likely. Lactic acidosis. Seizures, provoked. Renal failure. Hx of brain aneurysm? DM. HTN. HLD. Tremor like movements. Cocaine positive. History of Present Illness History of Present Illness Admitted initially for seizure and concern for cocaine intoxication, she is awake and alert as of 07/18/18 Had an EEG 07/17/18 - seen by neurology Neurology has shifted to by mouth thiamine and by mouth Eddy Last night had some agitation, wandering into other patients rooms and undressing in the hallways per night staff, was not responsive to redirection, but was responsive to 20mg IM geodon and lorazepam 3mg. Some confusion evident but stable clinically, seen by neuro this morning. She wishes to eat and is asking for a discharge. Her family has met with NICOL, amenable to plan: Worked well with PT/OT Needs geriatric psych with her h/o seizures and sundowning Sister is her nearest next of kin - d/w her need for skilled svcs on d/c Podiatry consult for toenail clipping Seizure precautions Discussed with RN at bedside Vitals Vitals Vital Signs Date Time Temp Pulse Resp B/P (MAP) Pulse Ox O2 Delivery O2 Flow Rate FiO2 07/20/18 03:09 62 18 100 Room Air 07/19/18 21:47 182/108 07/19/18 15:29 97.4 97.4 Physical Exam General: Alert, Oriented X3, Cooperative, No acute distress Heart: Regular rate, Normal S1, Normal S2, No murmurs Lungs: Clear Abdomen: Normal bowel sounds, Soft, No tenderness Extremities: No clubbing, No cyanosis, No edema Skin: No rashes, No breakdown, No significant lesion Labs LABS Laboratory Tests Test 07/19/18 11:11 07/19/18 16:36 Glucose (Fingerstick) 115 mg/dL (70-99) 105 mg/dL (70-99) Assessment and Plan Assessmemt and Plan Problems Medical Problems: (1) New onset seizure Status: Acute Comment Review of Relevant I have reviewed the following items remi (where applicable) has been applied. Labs Laboratory Tests Test 07/19/18 08:00 07/19/18 11:11 07/19/18 16:36 Glucose (Fingerstick) 81 mg/dL (70-99) 115 mg/dL (70-99) 105 mg/dL (70-99) Laboratory Tests Test 07/19/18 11:11 07/19/18 16:36 Glucose (Fingerstick) 115 mg/dL (70-99) 105 mg/dL (70-99) Microbiology 07/16/18 Blood Culture - Preliminary, Resulted NO GROWTH AFTER 4 DAYS Medications Current Medications Labetalol HCl (Normodyne Iv Push) 10 mg 1X ONCE IVP Last administered on at 00:29; Start 07/16/18 at 00:30; Stop 07/16/18 at 00:31; Status DC Lorazepam (Ativan) 2 mg 1X ONCE IV Last administered on 07/16/18at 00:24; Start 07/16/18 at 00:30; Stop 07/16/18 at 00:31; Status DC Morphine Sulfate (Morphine Sulfate) 4 mg STK-MED ONCE .ROUTE ; Start 07/16/18 at 02:01; Stop 07/16/18 at 02:02; Status DC Levetiracetam 1000 mg/Dextrose 110 ml @ 440 mls/hr 1X ONCE IV Last administered on 07/16/18at 03:02; Start 07/16/18 at 03:30; Stop 07/16/18 at 03:45 ; Status DC Ondansetron HCl (Zofran) 4 mg PRN Q8HRS PRN IV NAUSEA/VOMITING 1ST CHOICE; Start 07/16/18 at 03:15; Stop 07/17/18 at 03:14; Status DC Sodium Chloride 1,000 ml @ 125 mls/hr Q8H IV Last administered on 07/16/18at 05 :54; Start 07/16/18 at 03:04; Stop 07/16/18 at 15:11; Status DC Lorazepam (Ativan) 2 mg PRN Q4HRS PRN IV seizure Last administered on at 21:47; Start 07/16/18 at 04:00 Info (FLU VACCINE SCREEN per RX) 1 each PRN DAILY PRN [facility] UNABLE TO RESPOND; Start 07/16/18 at 05:15; Status Cancel Amlodipine Besylate (Norvasc) 5 mg DAILY PO ; Start 07/16/18 at 13:00; Stop 05/25 at 10:33; Status DC Acetaminophen/ Hydrocodone Bitart (Lortab 5/325) 1 tab PRN Q6HRS PRN PO MODERATE TO SEVERE PAIN; Start 07/16/18 at 13:00 Simvastatin (Zocor) 10 mg HS PO Last administered on 07/19/18at 18:55; Start 07/16/18 at 21:00 Non-Formulary Medication (Albuterol Sulfate (Proair Hfa Inhaler)) 2 puff PRN Q4- 6HRS IH ; Start 07/16/18 at 13:00; Status UNV Famotidine (Pepcid) 20 mg HS PO Last administered on 07/19/18at 18:55; Start 07/16/18 at 21:00 Albuterol Sulfate (Ventolin Neb Soln) 2.5 mg PRN Q4HRS PRN NEB SHORTNESS OF BREATH; Start 07/16/18 at 13:15 Doxycycline Hyclate 100 mg/ Dextrose 100 ml @ 50 mls/hr Q12HR IV Last administered on 07/17/18at 08:13; Start 07/16/18 at 14:00; Stop 07/17/18 at 10: 31; Status DC Lacosamide 100 mg/ Dextrose 60 ml @ 120 mls/hr BID IV Last administered on 05/25at 21:28; Start 07/16/18 at 15:00; Stop 07/18/18 at 09:28; Status DC Thiamine HCl 100 mg/Dextrose 51 ml @ 102 mls/hr DAILY IV Last administered on 07/17/18at 08:13; Start 07/16/18 at 15:00; Stop 07/17/18 at 10:31; Status DC Sodium Chloride 1,000 ml @ 75 mls/hr [id number] IV Last administered on at 15:15; Start 07/16/18 at 15:15; Stop 07/17/18 at 10:31; Status DC Labetalol HCl (Normodyne Iv Push) 10 mg PRN Q4HRS PRN IVP HYPERTENSION, SEE COMMENTS Last administered on 07/19/18at 21:47; Start 07/16/18 at 16:00 Aspirin (Fidelina Aspirin) 325 mg DAILYWBKFT PO Last administered on 07/19/18at 08 :41; Start 07/16/18 at 18:00 Ondansetron HCl (Zofran) 4 mg PRN Q6HRS PRN IV NAUSEA/VOMITING; Start at 10:30 Thiamine Mononitrate (Vitamin B-1) 100 mg DAILY PO ; Start 07/18/18 at 09:00; Stop 07/18/18 at 09:00; Status DC Acetaminophen (Tylenol) 500 mg PRN Q6HRS PRN PO MILD PAIN / TEMP; Start at 10:30 Ibuprofen (Motrin) 400 mg PRN Q6HRS PRN PO INFLAMMATION; Start 07/17/18 at 10: 30 Thiamine HCl 100 mg/Dextrose 51 ml @ 102 mls/hr DAILY IV ; Start 07/18/18 at 09:00; Stop 07/18/18 at 09:28; Status DC Amlodipine Besylate (Norvasc) 10 mg DAILY PO Last administered on 07/19/18at 08 :42; Start 07/18/18 at 09:00 Levetiracetam (Keppra) 500 mg BID PO Last administered on 07/19/18at 18:55; Start 07/18/18 at 21:00 Thiamine Mononitrate (Vitamin B-1) 100 mg DAILY PO Last administered on at 08:42; Start 07/19/18 at 09:00 Influenza Virus Vaccine (Afluria Trivalent [id number] Syringe) 0.5 ml ONCE ONCE VAX IM ; Start 07/18/18 at 17:00; Stop 07/18/18 at 17:01; Status DC Ziprasidone (Geodon) 20 mg 1X ONCE PO Last administered on 07/19/18at 18:55; Start 07/19/18 at 19:00; Stop 07/19/18 at 19:01; Status DC Active Scripts Active Hydrocodone-Apap 5-325 (Hydrocodone Bit/Acetaminophen) 1 Each Tablet 1 Tab PO PRN Q4HRS PRN Flagyl (Metronidazole) 500 Mg Tablet 500 Mg PO Q12HR 5 Days Levaquin (Levofloxacin) 500 Mg Tablet 500 Mg PO DAILY06 5 Days Amlodipine Besylate 5 Mg Tablet 5 Mg PO DAILY Reported Ranitidine Hcl 150 Mg Capsule 1 Cap PO BID Ativan (Lorazepam) 0.5 Mg Tablet 0.5 Mg PO PRN PRN Lortab 5-325 mg Tablet (Hydrocodone/Acetaminophen) 1 Each Tablet 1 Tab PO PRN Q6HRS PRN Simvastatin 10 Mg Tablet 10 Mg PO HS Proair Hfa Inhaler (Albuterol Sulfate) 8.5 Gm Hfa.aer.ad 2 Puff IH PRN Q4-6HRS Vitals/I & O Vital Sign - Last 24 Hours 07/19/18 07/19/18 07/19/18 07/19/18 11:40 15:29 19:00 19:00 Temp 97.9 97.4 97.9 97.4 Pulse 67 67 Resp 18 18 18 B/P (MAP) 158/87 (110) 165/87 (113) 182/108 (132) Pulse Ox 93 93 95 O2 Delivery Room Air Room Air Room Air Room Air 07/19/18 07/20/18 21:47 03:09 Pulse 67 62 Resp 18 B/P (MAP) 182/108 Pulse Ox 100 O2 Delivery Room Air Intake and Output 07/19/18 07/19/18 07/20/18 15:00 23:00 07:00 Intake Total 100 ml 420 ml 0 ml Output Total 400 ml Balance 100 ml 20 ml 0 ml ADRIENNE BEAL MD Jul 20, 2018 08:55
[2018-07-20] MEDS: levETIRAcetam 500 MG TABLET PO SCH ×2 (09:00→21:43)
[2018-07-20] MEDS: THIAMINE 100 MG TABLET. PO SCH (09:00)
[2018-07-20] MEDS: amLODIPine BESYLATE 10 MG TABLET PO SCH (09:00)
[2018-07-20 15:00] VITALS: BP 146/86
--- NOTE | 2018-07-20 16:19 | PDOC ---
PROGRESS NOTES Assessment Problems Medical Problems: (1) New onset seizure Status: Acute Toxic encephalopathy, cocaine. Metabolic encephalopathy. Seizures, provoked. PLEDs on EEG, 07/17, clinically better. No more seizure episodes reported Renal failure. History of brain aneurysm, right carotid terminus, status-post clipping Plan Hold on repeat EEG Oral levetiracetam Awaiting placement Follow-up with me or Dr. Jimenez in 6 weeks. Subjective No complaints Objective Vital Signs Date Time Temp Pulse Resp B/P (MAP) Pulse Ox O2 Delivery O2 Flow Rate FiO2 07/20/18 08:00 Room Air 07/20/18 03:09 62 18 100 07/19/18 21:47 182/108 07/19/18 15:29 97.4 97.4 Intake and Output 07/20/18 07:00 Intake Total 520 ml Output Total 400 ml Balance 120 ml Intake Oral 520 ml Output Urine Total 400 ml # Voids 2 PHYSICAL EXAM Sleepy, waking up, but knows location, not date PERRL. EOMI. CN: no focal findings. Muscle tone: normal. Muscle strength: 4/5 DTR: 2+ Plantar reflex: Flexor Gait: apraxic Sensory exam: no abnormal findings. No cerebellar signs elicited. Review of Relevant I have reviewed the following items remi (where applicable) has been applied. Labs Laboratory Tests Test 07/19/18 08:00 07/19/18 11:11 07/19/18 16:36 Glucose (Fingerstick) 81 mg/dL (70-99) 115 mg/dL (70-99) 105 mg/dL (70-99) Laboratory Tests Test 07/19/18 16:36 Glucose (Fingerstick) 105 mg/dL (70-99) Microbiology 07/16/18 Blood Culture - Preliminary, Resulted NO GROWTH AFTER 4 DAYS Medications Current Medications Labetalol HCl (Normodyne Iv Push) 10 mg 1X ONCE IVP Last administered on at 00:29; Start 07/16/18 at 00:30; Stop 07/16/18 at 00:31; Status DC Lorazepam (Ativan) 2 mg 1X ONCE IV Last administered on 07/16/18at 00:24; Start 07/16/18 at 00:30; Stop 07/16/18 at 00:31; Status DC Morphine Sulfate (Morphine Sulfate) 4 mg STK-MED ONCE .ROUTE ; Start 07/16/18 at 02:01; Stop 07/16/18 at 02:02; Status DC Levetiracetam 1000 mg/Dextrose 110 ml @ 440 mls/hr 1X ONCE IV Last administered on 07/16/18at 03:02; Start 07/16/18 at 03:30; Stop 07/16/18 at 03:45 ; Status DC Ondansetron HCl (Zofran) 4 mg PRN Q8HRS PRN IV NAUSEA/VOMITING 1ST CHOICE; Start 07/16/18 at 03:15; Stop 07/17/18 at 03:14; Status DC Sodium Chloride 1,000 ml @ 125 mls/hr Q8H IV Last administered on 07/16/18at 05 :54; Start 07/16/18 at 03:04; Stop 07/16/18 at 15:11; Status DC Lorazepam (Ativan) 2 mg PRN Q4HRS PRN IV seizure Last administered on at 12:53; Start 07/16/18 at 04:00 Info (FLU VACCINE SCREEN per RX) 1 each PRN DAILY PRN [facility] UNABLE TO RESPOND; Start 07/16/18 at 05:15; Status Cancel Amlodipine Besylate (Norvasc) 5 mg DAILY PO ; Start 07/16/18 at 13:00; Stop 05/25 at 10:33; Status DC Acetaminophen/ Hydrocodone Bitart (Lortab 5/325) 1 tab PRN Q6HRS PRN PO MODERATE TO SEVERE PAIN; Start 07/16/18 at 13:00 Simvastatin (Zocor) 10 mg HS PO Last administered on 07/19/18at 18:55; Start 07/16/18 at 21:00 Non-Formulary Medication (Albuterol Sulfate (Proair Hfa Inhaler)) 2 puff PRN Q4- 6HRS IH ; Start 07/16/18 at 13:00; Status UNV Famotidine (Pepcid) 20 mg HS PO Last administered on 07/19/18at 18:55; Start 07/16/18 at 21:00 Albuterol Sulfate (Ventolin Neb Soln) 2.5 mg PRN Q4HRS PRN NEB SHORTNESS OF BREATH; Start 07/16/18 at 13:15 Doxycycline Hyclate 100 mg/ Dextrose 100 ml @ 50 mls/hr Q12HR IV Last administered on 07/17/18at 08:13; Start 07/16/18 at 14:00; Stop 07/17/18 at 10: 31; Status DC Lacosamide 100 mg/ Dextrose 60 ml @ 120 mls/hr BID IV Last administered on 05/25at 21:28; Start 07/16/18 at 15:00; Stop 07/18/18 at 09:28; Status DC Thiamine HCl 100 mg/Dextrose 51 ml @ 102 mls/hr DAILY IV Last administered on 07/17/18at 08:13; Start 07/16/18 at 15:00; Stop 07/17/18 at 10:31; Status DC Sodium Chloride 1,000 ml @ 75 mls/hr [id number] IV Last administered on at 15:15; Start 07/16/18 at 15:15; Stop 07/17/18 at 10:31; Status DC Labetalol HCl (Normodyne Iv Push) 10 mg PRN Q4HRS PRN IVP HYPERTENSION, SEE COMMENTS Last administered on 07/19/18at 21:47; Start 07/16/18 at 16:00 Aspirin (Fidelina Aspirin) 325 mg DAILYWBKFT PO Last administered on 07/19/18at 08 :41; Start 07/16/18 at 18:00 Ondansetron HCl (Zofran) 4 mg PRN Q6HRS PRN IV NAUSEA/VOMITING; Start at 10:30 Thiamine Mononitrate (Vitamin B-1) 100 mg DAILY PO ; Start 07/18/18 at 09:00; Stop 07/18/18 at 09:00; Status DC Acetaminophen (Tylenol) 500 mg PRN Q6HRS PRN PO MILD PAIN / TEMP; Start at 10:30 Ibuprofen (Motrin) 400 mg PRN Q6HRS PRN PO INFLAMMATION; Start 07/17/18 at 10: 30 Thiamine HCl 100 mg/Dextrose 51 ml @ 102 mls/hr DAILY IV ; Start 07/18/18 at 09:00; Stop 07/18/18 at 09:28; Status DC Amlodipine Besylate (Norvasc) 10 mg DAILY PO Last administered on 07/19/18at 08 :42; Start 07/18/18 at 09:00 Levetiracetam (Keppra) 500 mg BID PO Last administered on 07/19/18at 18:55; Start 07/18/18 at 21:00 Thiamine Mononitrate (Vitamin B-1) 100 mg DAILY PO Last administered on at 08:42; Start 07/19/18 at 09:00 Influenza Virus Vaccine (Afluria Trivalent 3715-9591 Syringe) 0.5 ml ONCE ONCE VAX IM ; Start 07/18/18 at 17:00; Stop 07/18/18 at 17:01; Status DC Ziprasidone (Geodon) 20 mg 1X ONCE PO Last administered on 07/19/18at 18:55; Start 07/19/18 at 19:00; Stop 07/19/18 at 19:01; Status DC Active Scripts Active Hydrocodone-Apap 5-325 (Hydrocodone Bit/Acetaminophen) 1 Each Tablet 1 Tab PO PRN Q4HRS PRN Flagyl (Metronidazole) 500 Mg Tablet 500 Mg PO Q12HR 5 Days Levaquin (Levofloxacin) 500 Mg Tablet 500 Mg PO DAILY06 5 Days Amlodipine Besylate 5 Mg Tablet 5 Mg PO DAILY Reported Ranitidine Hcl 150 Mg Capsule 1 Cap PO BID Ativan (Lorazepam) 0.5 Mg Tablet 0.5 Mg PO PRN PRN Lortab 5-325 mg Tablet (Hydrocodone/Acetaminophen) 1 Each Tablet 1 Tab PO PRN Q6HRS PRN Simvastatin 10 Mg Tablet 10 Mg PO HS Proair Hfa Inhaler (Albuterol Sulfate) 8.5 Gm Hfa.aer.ad 2 Puff IH PRN Q4-6HRS Vitals/I & O Vital Sign - Last 24 Hours 07/19/18 07/19/18 07/19/18 07/20/18 19:00 19:00 21:47 03:09 Pulse 67 62 Resp 18 18 B/P (MAP) 182/108 (132) 182/108 Pulse Ox 95 100 O2 Delivery Room Air Room Air Room Air 07/20/18 08:00 O2 Delivery Room Air Intake and Output 07/19/18 07/19/18 07/20/18 15:00 23:00 07:00 Intake Total 100 ml 420 ml 0 ml Output Total 400 ml Balance 100 ml 20 ml 0 ml MADY OH MD Jul 20, 2018:19
[2018-07-20 19:00] VITALS: BP 144/93
[2018-07-20] MEDS: FAMOTIDINE 20 MG TABLET. PO SCH (21:43)
[2018-07-20] MEDS: SIMVASTATIN 10 MG TABLET PO SCH (21:43)
[2018-07-20 23:00] VITALS: BP 124/90
[2018-07-21 03:05] VITALS: BP 177/100
[2018-07-21] MEDS: LABETALOL 20 MG/4 ML DISP.SYRIN. IVP PRN (04:22)
[2018-07-21 04:58] VITALS: BP 145/75
[2018-07-21 07:00] VITALS: BP 172/84
[2018-07-21] MEDS: levETIRAcetam 500 MG TABLET PO SCH (08:42)
[2018-07-21] MEDS: ASPIRIN 325 MG TABLET PO SCH (08:42)
[2018-07-21] MEDS: amLODIPine BESYLATE 10 MG TABLET PO SCH (08:42)
[2018-07-21] MEDS: THIAMINE 100 MG TABLET. PO SCH (08:42)
[2018-07-21] MEDS ORDERED: ZIPRASIDONE 20 MG CAPSULE PO SCH (09:00)
--- NOTE | 2018-07-21 10:48 | PDOC ---
PROGRESS NOTES Chief Complaint Chief Complaint Toxic encephalopathy, Cocaine. Metabolic encephalopathy. Cocaine use/abuse likely. Lactic acidosis. Seizures, provoked. Renal failure. Hx of brain aneurysm? DM. HTN. HLD. Tremor like movements. Cocaine positive. History of Present Illness History of Present Illness Admitted initially for seizure and concern for cocaine intoxication, she is awake and alert as of 07/18/18 Had an EEG 07/17/18 - seen by neurology Neurology has shifted to by mouth thiamine and by mouth Eddy Last night had some agitation, but was more responsive after geodon oral and lorazepam, wandering into other patients rooms in the hallways per night staff, was more responsive to redirection. Her sister relates she has long-standing bipolar disorder after d/w PAT team and she frequently is hospitalized at [facility], well known there. Some confusion evident but stable clinically, though a little elevated BP, seen by neuro this morning. She wishes to eat and is asking for a discharge. Her family has met with SW, amenable to SNF with memory unit or psych discharge, either of which would be appropriate plan: Worked well with PT/OT HTN - will get BP down SBP < 150mmHg Needs geriatric psych with her h/o seizures and owning Sister is her nearest next of kin - d/w her need for skilled svcs on d/c Podiatry consult for toenail clipping Seizure precautions Discussed with RN at bedside Vitals Vitals Vital Signs Date Time Temp Pulse Resp B/P (MAP) Pulse Ox O2 Delivery O2 Flow Rate FiO2 07/21/18 08:42 61 172/84 07/21/18 07:00 97.8 18 95 Room Air 97.8 07/20/18 20:00 3.0 Physical Exam General: Alert, Oriented X3, Cooperative, No acute distress Heart: Regular rate, Normal S1, Normal S2, No murmurs Lungs: Clear Abdomen: Normal bowel sounds, Soft, No tenderness Extremities: No clubbing, No cyanosis, No edema Skin: No rashes, No breakdown, No significant lesion Assessment and Plan Assessmemt and Plan Problems Medical Problems: (1) New onset seizure Status: Acute Comment Review of Relevant I have reviewed the following items remi (where applicable) has been applied. Labs Laboratory Tests Test 07/19/18 11:11 07/19/18 16:36 Glucose (Fingerstick) 115 mg/dL (70-99) 105 mg/dL (70-99) Microbiology 07/16/18 Blood Culture - Final, Complete NO GROWTH AFTER 5 DAYS Medications Current Medications Labetalol HCl (Normodyne Iv Push) 10 mg 1X ONCE IVP Last administered on at 00:29; Start 07/16/18 at 00:30; Stop 07/16/18 at 00:31; Status DC Lorazepam (Ativan) 2 mg 1X ONCE IV Last administered on 07/16/18at 00:24; Start 07/16/18 at 00:30; Stop 07/16/18 at 00:31; Status DC Morphine Sulfate (Morphine Sulfate) 4 mg STK-MED ONCE .ROUTE ; Start 07/16/18 at 02:01; Stop 07/16/18 at 02:02; Status DC Levetiracetam 1000 mg/Dextrose 110 ml @ 440 mls/hr 1X ONCE IV Last administered on 07/16/18at 03:02; Start 07/16/18 at 03:30; Stop 07/16/18 at 03:45 ; Status DC Ondansetron HCl (Zofran) 4 mg PRN Q8HRS PRN IV NAUSEA/VOMITING 1ST CHOICE; Start 07/16/18 at 03:15; Stop 07/17/18 at 03:14; Status DC Sodium Chloride 1,000 ml @ 125 mls/hr Q8H IV Last administered on 07/16/18at 05 :54; Start 07/16/18 at 03:04; Stop 07/16/18 at 15:11; Status DC Lorazepam (Ativan) 2 mg PRN Q4HRS PRN IV seizure Last administered on at 09:26; Start 07/16/18 at 04:00 Info (FLU VACCINE SCREEN per RX) 1 each PRN DAILY PRN [facility] UNABLE TO RESPOND; Start 07/16/18 at 05:15; Status Cancel Amlodipine Besylate (Norvasc) 5 mg DAILY PO ; Start 07/16/18 at 13:00; Stop 05/25 at 10:33; Status DC Acetaminophen/ Hydrocodone Bitart (Lortab 5/325) 1 tab PRN Q6HRS PRN PO MODERATE TO SEVERE PAIN; Start 07/16/18 at 13:00 Simvastatin (Zocor) 10 mg HS PO Last administered on 07/20/18at 21:43; Start 07/16/18 at 21:00 Non-Formulary Medication (Albuterol Sulfate (Proair Hfa Inhaler)) 2 puff PRN Q4- 6HRS IH ; Start 07/16/18 at 13:00; Status UNV Famotidine (Pepcid) 20 mg HS PO Last administered on 07/20/18at 21:43; Start 07/16/18 at 21:00 Albuterol Sulfate (Ventolin Neb Soln) 2.5 mg PRN Q4HRS PRN NEB SHORTNESS OF BREATH; Start 07/16/18 at 13:15 Doxycycline Hyclate 100 mg/ Dextrose 100 ml @ 50 mls/hr Q12HR IV Last administered on 07/17/18at 08:13; Start 07/16/18 at 14:00; Stop 07/17/18 at 10: 31; Status DC Lacosamide 100 mg/ Dextrose 60 ml @ 120 mls/hr BID IV Last administered on 05/25at 21:28; Start 07/16/18 at 15:00; Stop 07/18/18 at 09:28; Status DC Thiamine HCl 100 mg/Dextrose 51 ml @ 102 mls/hr DAILY IV Last administered on 07/17/18at 08:13; Start 07/16/18 at 15:00; Stop 07/17/18 at 10:31; Status DC Sodium Chloride 1,000 ml @ 75 mls/hr [id number] IV Last administered on at 15:15; Start 07/16/18 at 15:15; Stop 07/17/18 at 10:31; Status DC Labetalol HCl (Normodyne Iv Push) 10 mg PRN Q4HRS PRN IVP HYPERTENSION, SEE COMMENTS Last administered on 07/21/18at 04:22; Start 07/16/18 at 16:00 Aspirin (Fidelina Aspirin) 325 mg DAILYWBKFT PO Last administered on 07/21/18at 08 :42; Start 07/16/18 at 18:00 Ondansetron HCl (Zofran) 4 mg PRN Q6HRS PRN IV NAUSEA/VOMITING; Start at 10:30 Thiamine Mononitrate (Vitamin B-1) 100 mg DAILY PO ; Start 07/18/18 at 09:00; Stop 07/18/18 at 09:00; Status DC Acetaminophen (Tylenol) 500 mg PRN Q6HRS PRN PO MILD PAIN / TEMP; Start at 10:30 Ibuprofen (Motrin) 400 mg PRN Q6HRS PRN PO INFLAMMATION; Start 07/17/18 at 10: 30 Thiamine HCl 100 mg/Dextrose 51 ml @ 102 mls/hr DAILY IV ; Start 07/18/18 at 09:00; Stop 07/18/18 at 09:28; Status DC Amlodipine Besylate (Norvasc) 10 mg DAILY PO Last administered on 07/21/18at 08 :42; Start 07/18/18 at 09:00 Levetiracetam (Keppra) 500 mg BID PO Last administered on 07/21/18at 08:42; Start 07/18/18 at 21:00 Thiamine Mononitrate (Vitamin B-1) 100 mg DAILY PO Last administered on at 08:42; Start 07/19/18 at 09:00 Influenza Virus Vaccine (Afluria Trivalent [id number] Syringe) 0.5 ml ONCE ONCE VAX IM ; Start 07/18/18 at 17:00; Stop 07/18/18 at 17:01; Status DC Ziprasidone (Geodon) 20 mg 1X ONCE PO Last administered on 07/19/18at 18:55; Start 07/19/18 at 19:00; Stop 07/19/18 at 19:01; Status DC Ziprasidone (Geodon) 20 mg BID PO Last administered on 07/21/18at 09:25; Start 07/21/18 at 09:00 Active Scripts Active Hydrocodone-Apap 5-325 (Hydrocodone Bit/Acetaminophen) 1 Each Tablet 1 Tab PO PRN Q4HRS PRN Flagyl (Metronidazole) 500 Mg Tablet 500 Mg PO Q12HR 5 Days Levaquin (Levofloxacin) 500 Mg Tablet 500 Mg PO DAILY06 5 Days Amlodipine Besylate 5 Mg Tablet 5 Mg PO DAILY Reported Ranitidine Hcl 150 Mg Capsule 1 Cap PO BID Ativan (Lorazepam) 0.5 Mg Tablet 0.5 Mg PO PRN PRN Lortab 5-325 mg Tablet (Hydrocodone/Acetaminophen) 1 Each Tablet 1 Tab PO PRN Q6HRS PRN Simvastatin 10 Mg Tablet 10 Mg PO HS Proair Hfa Inhaler (Albuterol Sulfate) 8.5 Gm Hfa.aer.ad 2 Puff IH PRN Q4-6HRS Vitals/I & O Vital Sign - Last 24 Hours 07/20/18 07/20/18 07/20/18 07/20/18 15:00 19:00 20:00 23:00 Temp 96.9 96.9 98.0 96.9 96.9 98.0 Pulse 69 79 66 Resp 20 18 16 B/P (MAP) 146/86 (106) 144/93 (110) 124/90 (101) Pulse Ox 97 96 98 O2 Delivery Room Air Room Air Room Air Room Air O2 Flow Rate 3.0 07/21/18 07/21/18 07/21/18 07/21/18 03:05 04:22 04:58 07:00 Temp 97.6 97.8 97.6 97.8 Pulse 63 63 61 Resp 16 18 B/P (MAP) 177/100 (125) 177/100 145/75 (98) 172/84 (113) Pulse Ox 95 O2 Delivery Room Air Room Air 07/21/18 08:42 Pulse 61 B/P (MAP) 172/84 Intake and Output 07/20/18 07/20/18 07/21/18 15:00 23:00 07:00 Intake Total 0 ml 220 ml Output Total 200 ml Balance -200 ml 220 ml ADRIENNE BEAL MD Jul 21, 2018 10:48
--- NOTE | 2018-07-21 10:49 | PDOC ---
PROGRESS NOTES Assessment Problems Medical Problems: (1) New onset seizure Status: Acute Toxic encephalopathy, cocaine. Metabolic encephalopathy. Seizures, provoked. PLEDs on EEG, 07/17, clinically better. No more seizure episodes reported Renal failure. History of brain aneurysm, right carotid terminus, status-post clipping Plan Hold on repeat EEG Oral levetiracetam Awaiting placement. Conventional nursing homes not accepting her because she has bipolar disorder and cocaine use, but she is not psychotic enough to require inpatient psychiatric hospitalization, therefore we need to find a psychiatric intermediate such as [place] Follow-up with me or Dr. Jimenez in 6 weeks. Objective Vital Signs Date Time Temp Pulse Resp B/P (MAP) Pulse Ox O2 Delivery O2 Flow Rate FiO2 07/21/18 08:42 61 172/84 07/21/18 07:00 97.8 18 95 Room Air 97.8 07/20/18 20:00 3.0 Intake and Output 07/21/18 07:00 Intake Total 220 ml Output Total 200 ml Balance 20 ml Intake Oral 220 ml Output Urine Total 200 ml # Voids 1 PHYSICAL EXAM Alert, knows location, not date PERRL. EOMI. CN: no focal findings. Muscle tone: normal. Muscle strength: 4/5 DTR: 2+ Plantar reflex: Flexor Gait: apraxic Sensory exam: no abnormal findings. No cerebellar signs elicited. Review of Relevant I have reviewed the following items remi (where applicable) has been applied. Labs Laboratory Tests Test 07/19/18 11:11 07/19/18 16:36 Glucose (Fingerstick) 115 mg/dL (70-99) 105 mg/dL (70-99) Microbiology 07/16/18 Blood Culture - Final, Complete NO GROWTH AFTER 5 DAYS Medications Current Medications Labetalol HCl (Normodyne Iv Push) 10 mg 1X ONCE IVP Last administered on at 00:29; Start 07/16/18 at 00:30; Stop 07/16/18 at 00:31; Status DC Lorazepam (Ativan) 2 mg 1X ONCE IV Last administered on 07/16/18at 00:24; Start 07/16/18 at 00:30; Stop 07/16/18 at 00:31; Status DC Morphine Sulfate (Morphine Sulfate) 4 mg STK-MED ONCE .ROUTE ; Start 07/16/18 at 02:01; Stop 07/16/18 at 02:02; Status DC Levetiracetam 1000 mg/Dextrose 110 ml @ 440 mls/hr 1X ONCE IV Last administered on 07/16/18at 03:02; Start 07/16/18 at 03:30; Stop 07/16/18 at 03:45 ; Status DC Ondansetron HCl (Zofran) 4 mg PRN Q8HRS PRN IV NAUSEA/VOMITING 1ST CHOICE; Start 07/16/18 at 03:15; Stop 07/17/18 at 03:14; Status DC Sodium Chloride 1,000 ml @ 125 mls/hr Q8H IV Last administered on 07/16/18at 05 :54; Start 07/16/18 at 03:04; Stop 07/16/18 at 15:11; Status DC Lorazepam (Ativan) 2 mg PRN Q4HRS PRN IV seizure Last administered on at 09:26; Start 07/16/18 at 04:00 Info (FLU VACCINE SCREEN per RX) 1 each PRN DAILY PRN [facility] UNABLE TO RESPOND; Start 07/16/18 at 05:15; Status Cancel Amlodipine Besylate (Norvasc) 5 mg DAILY PO ; Start 07/16/18 at 13:00; Stop 05/25 at 10:33; Status DC Acetaminophen/ Hydrocodone Bitart (Lortab 5/325) 1 tab PRN Q6HRS PRN PO MODERATE TO SEVERE PAIN; Start 07/16/18 at 13:00 Simvastatin (Zocor) 10 mg HS PO Last administered on 07/20/18at 21:43; Start 07/16/18 at 21:00 Non-Formulary Medication (Albuterol Sulfate (Proair Hfa Inhaler)) 2 puff PRN Q4- 6HRS IH ; Start 07/16/18 at 13:00; Status UNV Famotidine (Pepcid) 20 mg HS PO Last administered on 07/20/18at 21:43; Start 07/16/18 at 21:00 Albuterol Sulfate (Ventolin Neb Soln) 2.5 mg PRN Q4HRS PRN NEB SHORTNESS OF BREATH; Start 07/16/18 at 13:15 Doxycycline Hyclate 100 mg/ Dextrose 100 ml @ 50 mls/hr Q12HR IV Last administered on 07/17/18at 08:13; Start 07/16/18 at 14:00; Stop 07/17/18 at 10: 31; Status DC Lacosamide 100 mg/ Dextrose 60 ml @ 120 mls/hr BID IV Last administered on 05/25at 21:28; Start 07/16/18 at 15:00; Stop 07/18/18 at 09:28; Status DC Thiamine HCl 100 mg/Dextrose 51 ml @ 102 mls/hr DAILY IV Last administered on 07/17/18at 08:13; Start 07/16/18 at 15:00; Stop 07/17/18 at 10:31; Status DC Sodium Chloride 1,000 ml @ 75 mls/hr [id number] IV Last administered on at 15:15; Start 07/16/18 at 15:15; Stop 07/17/18 at 10:31; Status DC Labetalol HCl (Normodyne Iv Push) 10 mg PRN Q4HRS PRN IVP HYPERTENSION, SEE COMMENTS Last administered on 07/21/18at 04:22; Start 07/16/18 at 16:00 Aspirin (Fidelina Aspirin) 325 mg DAILYWBKFT PO Last administered on 07/21/18at 08 :42; Start 07/16/18 at 18:00 Ondansetron HCl (Zofran) 4 mg PRN Q6HRS PRN IV NAUSEA/VOMITING; Start at 10:30 Thiamine Mononitrate (Vitamin B-1) 100 mg DAILY PO ; Start 07/18/18 at 09:00; Stop 07/18/18 at 09:00; Status DC Acetaminophen (Tylenol) 500 mg PRN Q6HRS PRN PO MILD PAIN / TEMP; Start at 10:30 Ibuprofen (Motrin) 400 mg PRN Q6HRS PRN PO INFLAMMATION; Start 07/17/18 at 10: 30 Thiamine HCl 100 mg/Dextrose 51 ml @ 102 mls/hr DAILY IV ; Start 07/18/18 at 09:00; Stop 07/18/18 at 09:28; Status DC Amlodipine Besylate (Norvasc) 10 mg DAILY PO Last administered on 07/21/18at 08 :42; Start 07/18/18 at 09:00 Levetiracetam (Keppra) 500 mg BID PO Last administered on 07/21/18at 08:42; Start 07/18/18 at 21:00 Thiamine Mononitrate (Vitamin B-1) 100 mg DAILY PO Last administered on at 08:42; Start 07/19/18 at 09:00 Influenza Virus Vaccine (Afluria Trivalent [id number] Syringe) 0.5 ml ONCE ONCE VAX IM ; Start 07/18/18 at 17:00; Stop 07/18/18 at 17:01; Status DC Ziprasidone (Geodon) 20 mg 1X ONCE PO Last administered on 07/19/18at 18:55; Start 07/19/18 at 19:00; Stop 07/19/18 at 19:01; Status DC Ziprasidone (Geodon) 20 mg BID PO Last administered on 07/21/18at 09:25; Start 07/21/18 at 09:00 Active Scripts Active Hydrocodone-Apap 5-325 (Hydrocodone Bit/Acetaminophen) 1 Each Tablet 1 Tab PO PRN Q4HRS PRN Flagyl (Metronidazole) 500 Mg Tablet 500 Mg PO Q12HR 5 Days Levaquin (Levofloxacin) 500 Mg Tablet 500 Mg PO DAILY06 5 Days Amlodipine Besylate 5 Mg Tablet 5 Mg PO DAILY Reported Ranitidine Hcl 150 Mg Capsule 1 Cap PO BID Ativan (Lorazepam) 0.5 Mg Tablet 0.5 Mg PO PRN PRN Lortab 5-325 mg Tablet (Hydrocodone/Acetaminophen) 1 Each Tablet 1 Tab PO PRN Q6HRS PRN Simvastatin 10 Mg Tablet 10 Mg PO HS Proair Hfa Inhaler (Albuterol Sulfate) 8.5 Gm Hfa.aer.ad 2 Puff IH PRN Q4-6HRS Vitals/I & O Vital Sign - Last 24 Hours 07/20/18 07/20/18 07/20/18 07/20/18 15:00 19:00 20:00 23:00 Temp 96.9 96.9 98.0 96.9 96.9 98.0 Pulse 69 79 66 Resp 20 18 16 B/P (MAP) 146/86 (106) 144/93 (110) 124/90 (101) Pulse Ox 97 96 98 O2 Delivery Room Air Room Air Room Air Room Air O2 Flow Rate 3.0 1207/21/18 07/21/18 07/21/18 03:05 04:22 04:58 07:00 Temp 97.6 97.8 97.6 97.8 Pulse 63 63 61 Resp 16 18 B/P (MAP) 177/100 (125) 177/100 145/75 (98) 172/84 (113) Pulse Ox 95 O2 Delivery Room Air Room Air 07/21/18 08:42 Pulse 61 B/P (MAP) 172/84 Intake and Output 07/20/18 07/20/18 07/21/18 15:00 23:00 07:00 Intake Total 0 ml 220 ml Output Total 200 ml Balance -200 ml 220 ml MADY OH MD Jul 21, 2018 10:49
[2018-07-21] MEDS ORDERED: hydrALAZINE 25 MG TABLET PO SCH (11:00)
[2018-07-21 12:28] VITALS: BP 148/84
[2018-07-21 12:32] VITALS: BP 148/84
--- NOTE | 2018-07-21 15:44 | PDOC3 ---
Discharge Summary Visit Information Date of Admission: Jul 16, 2018 Date of Discharge: Jul 21, 2018 Admitting Diagnosis: Cocaine intoxication, metabolic encecphalopathy Final Diagnosis Problems Medical Problems: (1) New onset seizure Status: Acute Brief Hospital Course Allergies Allergies Coded Allergies Type Severity Reaction Last Updated Verified Penicillins Allergy Intermediate N/V ITCH 03/30/18 Yes I S O L A T I O N *CONTACT* Allergy Unknown 03/29/18 Yes Vital Signs Vital Signs Date Time Temp Pulse Resp B/P (MAP) Pulse Ox O2 Delivery O2 Flow Rate FiO2 07/21/18 12:32 64 148/84 07/21/18 12:28 97.6 18 96 Room Air 97.6 07/20/18 20:00 3.0 Lab Results Laboratory Tests Test 07/19/18 16:36 Glucose (Fingerstick) 105 mg/dL (70-99) Brief Hospital Course Ms. Cheek is a 62 year old female who presented with seizure and concern for cocaine intoxication with encephalopathy secondary to this. She is awake and alert as of 07/18/18, however, she became quickly agitated and Had an EEG 07/17/18 - seen by neurology. Neurology has shifted to by mouth thiamine and by mouth Keppra for this. 07/19/18 overnight became very agitated, was undressing in front of staff and wandering into other patients rooms trying to find her wig and clothes. At night had some agitation, but was more responsive after geodon oral and lorazepam, wandering into other patients rooms in the hallways per night staff, was more responsive to redirection. Her sister relates she has long-standing medical problems and it was discovered she has bipolar disorder after d/w PAT team and she frequently is hospitalized at [facility], well known there as well as [facility] where she has had brain aneurysm clipping. Some confusion evident but stable clinically, seen by neuro this morning. She wishes to eat and is asking for a discharge. Her family has met with [facility], amenable to home health with psych nursing which would be appropriate as she does have 24/7 family in the home in a multi-generational house. A/P: Toxic encephalopathy, Cocaine - improved Metabolic encephalopathy - with underlying h/o brain aneurysm and bipolar depression with psychosis - geodon and prn lorazepam Cocaine use/abuse likely - counseled Lactic acidosis - improved, was likely seizure provoked Seizures, provoked by cocaine with h/o aneurysm - keppra and thiamine, neuro f/ u in 4-6 weeks Renal failure - likely from vasomotor nephropathy Hx of brain aneurysm - ?s/p clipping at [facility] DM oral meds and insulin HTN - better controlled now HLD - LDL is 199, needs 80mg atorvastatin or 40mg rosuvastatin Worked well with PT/OT Needs geriatric psych with her h/o seizures and sundowning in the future Sister is her nearest next of kin - d/w her need for skilled svcs on d/c Podiatry consult for toenail clipping Discharge Information Condition at Discharge: Improved Follow Up: Weeks (2) Disposition/Orders: D/C to Home w/ HH (Spectrum) Scheduled Albuterol Sulfate (Proair Hfa Inhaler) 8.5 Gm Hfa.aer.ad, 2 PUFF IH PRN Q4-6HRS , #1 (Reported) Entered as Reported by: BOBO JUÁREZ on 10/03/15 0620 Last Action: Converted on 07/16/18 1300 by LEDER CHRISTENSEN MD Amlodipine Besylate (Amlodipine Besylate) 5 Mg Tablet, 5 MG PO DAILY, #30 Prescribed by: BLACK PEREZ MD on 04/01/18 114 Last Action: Continued on 07/16/18 1300 by ELDER CHRISTENSEN MD Levofloxacin (Levaquin) 500 Mg Tablet, 500 MG PO DAILY06 for 5 Days, #5 Prescribed by: BLACK PEREZ MD on 04/01/18 114 Last Action: HELD on 07/16/18 1259 by ELDER CHRISTENSEN MD Metronidazole (Flagyl) 500 Mg Tablet, 500 MG PO Q12HR for 5 Days, #10 Prescribed by: BLACK PEREZ MD on 04/01/18 1142 Last Action: HELD on 07/16/18 1259 by ELDER CHRISTENSEN MD Ranitidine Hcl (Ranitidine Hcl) 150 Mg Capsule, 1 CAP PO BID, #60 Ref 5 ( Reported) Entered as Reported by: KRYSTINA CHARLES on 03/24/182033 Last Action: Converted on 07/16/18 1300 by ELDER CHRISTENSEN MD Simvastatin (Simvastatin) 10 Mg Tablet, 10 MG PO HS for FOR CHOLESTEROL, #30 Ref 0 (Reported) Entered as Reported by: BOBO JUÁREZ on 10/03/15 0620 Last Action: Continued on 07/16/18 1300 by ELDER CHRISTENSEN MD Scheduled PRN Hydrocodone Bit/Acetaminophen (Hydrocodone-Apap 5-325 ) 1 Each Tablet, 1 TAB PO PRN Q4HRS PRN for PAIN, #10 Prescribed by: BLACK PEREZ MD on 04/01/18 1142 Last Action: HELD on 07/16/18 1259 by ELDER CHRISTENSEN MD Hydrocodone/Acetaminophen (Lortab 5-325 mg Tablet) 1 Each Tablet, 1 TAB PO PRN Q6HRS PRN for PAIN, Ref 0 (Reported) Entered as Reported by: NAZARIO WHYTE on 03/08/16 1131 Last Action: Continued on 07/16/18 1300 by ELDER CHRISTENSEN MD Lorazepam (Ativan) 0.5 Mg Tablet, 0.5 MG PO PRN PRN for ANXIETY / AGITATION, ( Reported) Entered as Reported by: NAZARIO WHYTE on 03/08/16 1131 Last Action: Reviewed on 07/17/18 1031 by ADRIENNE GARAY MD Jul 21, 2018 15:44
[2018-07-21] MEDS ORDERED: THIA100T22 PO (15:50)
[2018-07-21] MEDS ORDERED: LEVE500T56 PO (15:50)
[2018-07-21] MEDS ORDERED: HYDR-2868 PO (15:50)
[2018-07-21] MEDS ORDERED: AMLO10TA6 PO (15:50)
[2018-07-21] MEDS ORDERED: ZIPR20CA2 PO (15:50)
--- NOTE | 2018-07-21 15:52 | DISCH ---
DISCHARGE WITH HOME HEALTH DISCHARGE INFORMATION: Discharge Date: Jul 21, 2018 Final Diagnosis: Problems Medical Problems: (1) New onset seizure Status: Acute Condition on Discharge: Stable CODE STATUS: Code Status: Full HOME HEALTH: Face to Face: I certify this patient is under my care and that I, or a nurse practitioner or physician's personal injury legal assistant working with me, had a face to face encounter that meets the physician face to face encounter requirements with this patient on 07/21/18. Medical Complications: Dementia, DM, HTN Half-Way For: Diabetic Care, Medication Management, Other: (PSYCH NURSING) Physical Therapy For: Evalulation/Treatment Occupational Therapy For: Evaluation/Treatment Home Health Aide For: Self-care Pt Meets Homebound Status: Extreme weakness w/ amb., Limited distance walking, Poor cognition, Psychological condition (Bipolar depression, seizure disorder, cocaine abuse) POST DISCHARGE ORDERS: Activity Instructions for Disc: Other, see below Bathing Instructions: Shower-keep dressing dry DIET AFTER DISCHARGE: ADA Wound/Incision Care: Other, see below CHECKS AFTER DISCHARGE: Checks after discharge: Check blood press - daily, Check blood sugar, ac/hs FOLLOW-UP: Follow up with: Dr. Trejo - Neurology 4-6 weeks TREATMENT/EQUIPMENT ORDERS: Adaptive Equipment Issued: None CERTIFICATION STATEMENT: Certification Statement: Certification Statement: Based on the above finding, I certify that this patient is confined to the home and needs intermittent chcf care, physical therapy and/or speech therapy, or continues to need occupational therapy.~ This patient is under my care, and I have initiated the establishment of the plan of care.~ This patient will be followed by myself or a community physician who will periodically review the plan of care. Home Meds Active Scripts Hydralazine Hcl (HYDRALAZINE HCL) 25 Mg Tablet, 25 MG PO PRN TID PRN for HYPERTENSION, SEE COMMENTS for 30 Days, #90 TAB 2 Refills For SBP > 150mmHg take as needed 3 times per day Prov:ADRIENNE BEAL MD 07/21/18 Amlodipine Besylate (AMLODIPINE BESYLATE) 10 Mg Tablet, 10 MG PO DAILY for HTN for 30 Days, #30 TAB 2 Refills Prov:ADRIENNE BEAL MD 07/21/18 Levetiracetam (KEPPRA) 500 Mg Tablet, 500 MG PO BID for seizure for 30 Days, # 60 TAB 2 Refills Prov:ADRIENNE BEAL MD 07/21/18 Ziprasidone Hcl (GEODON) 20 Mg Capsule, 20 MG PO BID for Agitation for 30 Days, #60 CAP 2 Refills Prov:ADRIENNE BEAL MD 07/21/18 Thiamine Mononitrate (VITAMIN B-1) 100 Mg Tablet, 100 MG PO DAILY for deficiency for 30 Days, #30 TAB 2 Refills Prov:ADRIENNE BEAL MD 07/21/18 Reported Medications Ranitidine Hcl (RANITIDINE HCL) 150 Mg Capsule, 1 CAP PO BID, #60 CAP 5 Refills 03/24/18 Lorazepam (ATIVAN) 0.5 Mg Tablet, 0.5 MG PO PRN PRN for ANXIETY / AGITATION, TAB 03/08/16 Albuterol Sulfate (PROAIR HFA INHALER) 8.5 Gm Hfa.aer.ad, 2 PUFF IH PRN Q4-6HRS , #1 INHALER 10/03/15 Discontinued Reported Medications Hydrocodone/Acetaminophen (Lortab 5-325 mg Tablet) 1 Each Tablet, 1 TAB PO PRN Q6HRS PRN for PAIN, TAB 0 Refills 03/08/16 Simvastatin (SIMVASTATIN) 10 Mg Tablet, 10 MG PO HS for FOR CHOLESTEROL, #30 TAB 0 Refills 10/03/15 Discontinued Scripts Hydrocodone Bit/Acetaminophen (HYDROCODONE-APAP 5-325 ) 1 Each Tablet, 1 TAB PO PRN Q4HRS PRN for PAIN, #10 TAB Prov:BLACK PEREZ MD 04/01/18 Metronidazole (FLAGYL) 500 Mg Tablet, 500 MG PO Q12HR for 5 Days, #10 TAB Prov:BLACK PEREZ MD 04/01/18 Levofloxacin (LEVAQUIN) 500 Mg Tablet, 500 MG PO DAILY06 for 5 Days, #5 TAB Prov:BLACK PEREZ MD 04/01/18 Amlodipine Besylate (AMLODIPINE BESYLATE) 5 Mg Tablet, 5 MG PO DAILY, #30 TAB Prov:BLACK PEREZ MD 04/01/18 ADRIENNE BEAL MD Jul 21, 2018 15:52
== END 2018-07-21 16:30 | disposition home health service (06) | DRG 917 ==
LOC: ER 00:03 → 2 SOUTH 03:21
PROVIDERS: ADMIT Hospitalist; ATTEND Hospitalist
DX: T40.5X1A Poisoning by cocaine, accidental (unintentional), initial encounter (principal); G92 Toxic encephalopathy; E87.2 Acidosis; F31.5 Bipolar disorder, current episode depressed, severe, with psychotic features; R56.9 Unspecified convulsions; J45.909 Unspecified asthma, uncomplicated; E11.9 Type 2 diabetes mellitus without complications; E78.00 Pure hypercholesterolemia, unspecified; I10 Essential (primary) hypertension; K21.9 Gastro-esophageal reflux disease without esophagitis; N19 Unspecified kidney failure; E78.5 Hyperlipidemia, unspecified; F14.129 Cocaine abuse with intoxication, unspecified; Y92.89 Other specified places as the place of occurrence of the external cause; Z90.710 Acquired absence of both cervix and uterus; Z90.49 Acquired absence of other specified parts of digestive tract; Z88.0 Allergy status to penicillin
CPT/HCPCS: 36415; 36600; 70450; 70544; 70551; 71045; 80048; 80053; 80061; 80307; 80329; 81001; 82607; 82805; 82962; 83605; 84443; 85025; 85610; 87040; 93005; 93306; 93880; 95816; 96365; 96375; C9254; G6039; J1953; J2060; J3490; J7030; 97530; 99285-25; G0480

== ENCOUNTER 2018-07-26 13:17 | Emergency (ER) | payer MEDICARE, OTHER ==
[~2018-07-26] VITALS: Ht 165.1 cm; Wt 45.4 kg
[~2018-07-26 13:17] MED LIST changes: +ALBU2.5V8 IH; -AMLO10TA6 PO; +AMLO10TA8 PO; +AMLO5TAB10 PO; -AMLO5TAB7 PO; +HYDR-2868 PO; +LEVE500T56 PO; -PROAIR HFA8.5 GM IH; +THIA100T22 PO; +ZIPR20CA2 PO
[2018-07-26] MEDS ORDERED: MECLIZINE HCL 12.5 MG TABLET. PO ONE (14:15)
[2018-07-26] MEDS ORDERED: IV NORMAL SALINE 500ML BAG 500 ML IV ONE (14:15)
[2018-07-26 14:21] LABS: BASO % 1 % (0-3); EOS # 0.1 x10^3/uL (0.0-0.7); EOS % 1 % (0-3); HEMATOCRIT 44.2 % (36.0-47.0); HEMOGLOBIN 14.3 g/dL (12.0-15.5); LYMPH # 1.2 x10^3/uL (1.0-4.8); LYMPH % 29 % (24-48); MEAN CORPUSCULAR HEMOGLOBIN 25 pg (25-35); MEAN CORPUSCULAR HGB CONC 33 g/dL (31-37); MEAN CORPUSCULAR VOLUME 75 fL (79-100); MONO # 0.5 x10^3/uL (0.0-1.1); MONO % 11 % (0-9); NEUT # 2.4 x10^3uL (1.8-7.7); NEUT % 58 % (31-73); PLATELET COUNT 146 x10^3/uL (140-400); RED BLOOD COUNT 5.86 x10^6/uL (3.50-5.40); RED CELL DISTRIBUTION WIDTH 21.4 % (11.5-14.5); WHITE BLOOD COUNT 4.1 x10^3/uL (4.0-11.0)
[2018-07-26 14:35] LABS: CALCIUM 10.1 mg/dL (8.5-10.1); CREATININE 1.2 mg/dL (0.6-1.0); GFR 54.7; POTASSIUM 3.9 mmol/L (3.5-5.1)
[2018-07-26 14:41] LABS: ALBUMIN 3.7 g/dL (3.4-5.0); ALBUMIN/GLOBULIN RATIO 0.8 (1.0-1.7); ANISOCYTOSIS SLIGHT; PLT ESTIMATE ADEQUATE (ADEQUATE); TOTAL BILIRUBIN 0.4 mg/dL (0.2-1.0); TOTAL PROTEIN 8.1 g/dL (6.4-8.2)
--- NOTE | 2018-07-26 14:48 | RAD ---
CT HEAD WO CONTRAST Indication: DIZZY, SYNCOPE, POSSIBLY HIT HEAD, PRIOR SENT Exposure: One or more of the following individualized dose reduction techniques were utilized for this examination: 1. Automated exposure control 2. Adjustment of the mA and/or kV according to patient size 3. Use of iterative reconstruction technique. Comparison: July 16, 2018 Contrast: None FINDINGS: Posterior fossa is unremarkable. No evidence of acute intracranial hemorrhage or abnormal extra-axial fluid collection. No evidence of mass effect or midline shift. Low-density in the white matter bilaterally, a nonspecific finding, but which is commonly due to chronic small vessel ischemic disease in a patient of this age. Prominence of ventricles and sulci, compatible with involutional change or atrophy. Intracranial arterial calcifications are identified. Postsurgical changes are again identified. Visualized orbits are unremarkable. Visualized paranasal sinuses and mastoids are clear. Surgical changes of the right skull are again identified. Impression: Stable exam, no acute intracranial hemorrhage or mass effect. Electronically signed by: Rob Escobar MD (07/26/2018 2:44 PM) [facility]
--- NOTE | 2018-07-26 14:54 | PHYS DOC ---
Past Medical History Past Medical History: Asthma, Diabetes-Type II, GERD, High Cholesterol, Hypertension, Other Additional Past Medical Histor: brain aneurysm; drug use Past Surgical History: Cholecystectomy, Hysterectomy, Other Additional Past Surgical Histo: perforated ulcer Alcohol Use: None Drug Use: Cocaine Social History Narrative: last use 1 week ago. Adult General Chief Complaint Chief Complaint: DIZZY/LIGHT HEADED HPI HPI Patient is a 62 year old female with a history of cocaine use multiple other medical problems recent admission seizure disorder possibly dementia who is brought in by [facility] apparently was having an argument with somebody at home according to the paramedics the story is that the patient put herself on the ground did not hit her head was helped to the ground and no actual seizure activity but the patient says that she felt lightheaded during the argument. Patient has not had any recent head injuries denies fever no vomiting eating okay taking medications Review of Systems Review of Systems Limited by dementia patient thinks it's May but also does know that Sandi is coming up Current Medications Current Medications Current Medications Medications (Trade) Dose Ordered Sig/Zee Start Time Stop Time Status Last Admin Dose Admin Meclizine HCl (Antivert) 25 mg 1X ONCE 07/26/18 14:15 07/26/18 14:16 DC 07/26/18 15:11 25 MG Sodium Chloride 500 ml @ 500 mls/hr 1X ONCE 07/26/18 14:15 07/26/18 15:14 DC 07/26/18 15:11 500 MLS/HR Allergies Allergies Allergies Coded Allergies Type Severity Reaction Last Updated Verified Penicillins Allergy Intermediate N/V ITCH 03/30/18 Yes I S O L A T I O N *CONTACT* Allergy Unknown 03/29/18 Yes Physical Exam Physical Exam Constitutional: Well developed, cachectic, non-toxic appearance. [] HENT: Normocephalic, atraumatic, bilateral external ears normal, oropharynx moist, no oral exudates, nose normal. [] Eyes: PERRLA, EOMI, conjunctiva normal, no discharge. [] Neck: Normal range of motion, no tenderness, supple, no stridor. [] Cardiovascular:Heart rate regular rhythm, 3-6 murmur is noted Lungs & Thorax: Bilateral breath sounds clear to auscultation [] Abdomen: Bowel sounds normal, soft, no tenderness, no masses, no pulsatile masses. [] Skin: Warm, dry, no erythema, no rash. [] Back: No tenderness, no CVA tenderness. [] Extremities: No tenderness, no cyanosis, no clubbing, ROM intact, no edema. [] Neurologic: Alert and oriented X 2, normal motor function, normal sensory function, no focal deficits noted. []Moving all extremities acqjzb-ioku-[id number] intact no nystagmus Psychologic: Affect normal, judgement normal, mood normal. [] Current Patient Data Vital Signs Vital Signs Date Time Temp Pulse Resp B/P (MAP) Pulse Ox O2 Delivery O2 Flow Rate FiO2 07/26/18 13:24 97.7 82 16 135/73 (93) 97 Room Air 97.7 Lab Values Laboratory Tests Test 07/26/18 14:05 07/26/18 15:45 White Blood Count 4.1 x10^3/uL (4.0-11.0) Red Blood Count 5.86 x10^6/uL (3.50-5.40) H Hemoglobin 14.3 g/dL (12.0-15.5) Hematocrit 44.2 % (36.0-47.0) Mean Corpuscular Volume 75 fL (79-100) L Mean Corpuscular Hemoglobin 25 pg (25-35) Mean Corpuscular Hemoglobin Concent 33 g/dL (31-37) Red Cell Distribution Width 21.4 % (11.5-14.5) H Platelet Count 146 x10^3/uL (140-400) Neutrophils (%) (Auto) 58 % (31-73) Lymphocytes (%) (Auto) 29 % (24-48) Monocytes (%) (Auto) 11 % (0-9) H Eosinophils (%) (Auto) 1 % (0-3) Basophils (%) (Auto) 1 % (0-3) Neutrophils # (Auto) 2.4 x10^3uL (1.8-7.7) Lymphocytes # (Auto) 1.2 x10^3/uL (1.0-4.8) Monocytes # (Auto) 0.5 x10^3/uL (0.0-1.1) Eosinophils # (Auto) 0.1 x10^3/uL (0.0-0.7) Basophils # (Auto) 0.0 x10^3/uL (0.0-0.2) Platelet Estimate Adequate (ADEQUATE) Anisocytosis Slight Sodium Level 145 mmol/L (136-145) Potassium Level 3.9 mmol/L (3.5-5.1) Chloride Level 109 mmol/L (98-107) H Carbon Dioxide Level 23 mmol/L (21-32) Anion Gap 13 (6-14) Blood Urea Nitrogen 20 mg/dL (7-20) Creatinine 1.2 mg/dL (0.6-1.0) H Estimated GFR (Cockcroft-Gault) 54.7 BUN/Creatinine Ratio 17 (6-20) Glucose Level 83 mg/dL (70-99) Calcium Level 10.1 mg/dL (8.5-10.1) Total Bilirubin 0.4 mg/dL (0.2-1.0) Aspartate Amino Transferase (AST) 14 U/L (15-37) L Alanine Aminotransferase (ALT) 14 U/L (14-59) Alkaline Phosphatase 90 U/L (46-116) Troponin I Quantitative 0.039 ng/mL (0.000-0.055) Total Protein 8.1 g/dL (6.4-8.2) Albumin 3.7 g/dL (3.4-5.0) Albumin/Globulin Ratio 0.8 (1.0-1.7) L Urine Collection Type Unknown Urine Color Yellow Urine Clarity Clear Urine pH 7.5 Urine Specific [place] 1.020 Urine Protein 100 mg/dL (NEG-TRACE) Urine Glucose (UA) Negative mg/dL (NEG) Urine Ketones (Stick) Negative mg/dL (NEG) Urine Blood Negative (NEG) Urine Nitrite Negative (NEG) Urine Bilirubin Negative (NEG) Urine Urobilinogen Dipstick 1.0 mg/dL (0.2 mg/dL) Urine Leukocyte Esterase Negative (NEG) Urine RBC 0 /HPF (0-2) Urine WBC 1-4 /HPF (0-4) Urine Squamous Epithelial Cells Few /LPF Urine Bacteria Few /HPF (0-FEW) Urine Hyaline Casts Few /HPF Urine Mucus Slight /LPF Urine Opiates Screen Neg (NEG) Urine Methadone Screen Neg (NEG) Urine Barbiturates Neg (NEG) Urine Phencyclidine Screen Neg (NEG) Urine Amphetamine/Methamphetamine Neg (NEG) Urine Benzodiazepines Screen Neg (NEG) Urine Cocaine Screen Neg (NEG) Urine Cannabinoids Screen Neg (NEG) Urine Ethyl Alcohol Neg (NEG) Laboratory Tests 07/26/18 14:05 Laboratory Tests 07/26/18 14:05 EKG EKG []EKG shows a normal sinus rhythm with a rate of 83 QTC is [address] elevation was noted this was interpreted by me the time of encounter. Radiology/Procedures Radiology/Procedures [] Impressions: FINDINGS: Posterior fossa is unremarkable. No evidence of acute intracranial hemorrhage or abnormal extra-axial fluid collection. No evidence of mass effect or midline shift. Low-density in the white matter bilaterally, a nonspecific finding, but which is commonly due to chronic small vessel ischemic disease in a patient of this age. Prominence of ventricles and sulci, compatible with involutional change or atrophy. Intracranial arterial calcifications are identified. Postsurgical changes are again identified. Visualized orbits are unremarkable. Visualized paranasal sinuses and mastoids are clear. Surgical changes of the right skull are again identified. Impression: Stable exam, no acute intracranial hemorrhage or mass effect. Electronically signed by: Rob Escobar MD (07/26/2018 2:44 PM) [facility] DICTATED and SIGNED BY: ROB ESCOBAR MD DATE: 07/26/18 1436 Creatinine is actually improved. Course & Med Decision Making Course & Med Decision Making Pertinent Labs and Imaging studies reviewed. (See chart for details) []62-year-old female is presenting with chief complaint of some sort of a patient with a near-syncope apparently threw herself onto the ground but was helped down did not hit her head does have a history of cocaine use but her drug screen is negative today. She also has history of apparent dementia based on recent discharge summary we did an extensive workup in the emergency room there is no fever the blood pressure is good labs look stable actually pretty good overall patient has no chest pain CT head was negative acute urinalysis looked good. Patient will be discharged under the care of her family. This is likely behavioral event as best as I can tell. Dragon Disclaimer Dragon Disclaimer This electronic medical record was generated, in whole or in part, using a voice recognition dictation system. Departure Departure Impression: Primary Impression: Near syncope Disposition: 01 HOME, SELF-CARE Condition: STABLE Referrals: KRISTINE MELENDEZ MD (PCP) ROE PHELPS MD Jul 26, 2018 14:54
[2018-07-26 16:02] LABS: BILIRUBIN,URINE NEGATIVE (NEG); CLARITY,URINE CLEAR; COLOR,URINE YELLOW; NITRITE,URINE NEGATIVE (NEG); PH,URINE 7.5; PROTEIN,URINE 100 mg/dL (NEG-TRACE)
[2018-07-26 16:07] LABS: BACTERIA,URINE FEW /HPF (0-FEW); RBC,URINE 0 /HPF (0-2); SQUAMOUS EPITHELIAL CELL,UR FEW /LPF
[2018-07-26 16:08] LABS: BARBITURATES NEG (NEG); BENZODIAZEPINES NEG (NEG); CANNABINOIDS NEG (NEG); COCAINE NEG (NEG); HYALINE CASTS, URINE FEW /HPF; METHADONE NEG (NEG); OPIATES NEG (NEG); PHENCYCLIDINE NEG (NEG)
[2018-07-26 16:11] LABS: AMPHETAMINE/METHAMPHETAMINE NEG (NEG)
[2018-07-26 16:42] VITALS: BP 163/94
--- NOTE | 2018-07-27 06:19 | EKG ---
[facility] [address] [place] [address] Test Date: 2018-07-26 Test Time: 13:24:18 Pat Name: EBONI PACHECO Department: Room: Gender: F Bolt Header: : 1955 Requested By: ROE PHELPS Order Number: [id number] Reading MD: Camilo Rader Measurements Intervals Alpha Rate: 82 P: 32 WI: 130 QRS: 10 QRSD: 72 T: 39 QT: 402 QTc: 472 Interpretive Statements SINUS RHYTHM QRS(T) CONTOUR ABNORMALITY CANNOT RULE OUT ANTEROSEPTAL MYOCARDIAL DAMAGE PROLONGED QT BORDERLINE ECG Electronically Signed On 08-04-2018 13:10:47 INFORMATION TECH by Camilo Rader
[2018-09-26] MEDS ORDERED: CYAN-25 PO (09:08)
== END 2018-07-26 16:49 | disposition home or self-care (01) ==
LOC: ER 13:17
DX: R55 Syncope and collapse (principal); E78.00 Pure hypercholesterolemia, unspecified; K21.9 Gastro-esophageal reflux disease without esophagitis; I10 Essential (primary) hypertension; G40.909 Epilepsy, unspecified, not intractable, without status epilepticus; F14.90 Cocaine use, unspecified, uncomplicated; E11.9 Type 2 diabetes mellitus without complications; J45.909 Unspecified asthma, uncomplicated; Z90.710 Acquired absence of both cervix and uterus; Z90.49 Acquired absence of other specified parts of digestive tract; Z88.0 Allergy status to penicillin; Z91.041 Radiographic dye allergy status
CPT/HCPCS: 36415; 70450; 80053; 80307; 81001; 84484; 85025; 93005; 96360; 99284; J7040; J8597

== ENCOUNTER 2018-09-23 19:16 | Inpatient (IN) | payer MEDICARE ==
[~2018-09-23] VITALS: Ht 165.1 cm; Wt 53.1 kg
[2018-09-23] MEDS ORDERED: IV NORMAL SALINE 1000ML BAG 1,000 ML IV ONE ×2 (19:30→21:00)
[2018-09-23] MEDS ORDERED: NALOXONE 0.4 MG/ML VIAL. IV ONE (19:30)
[2018-09-23] MEDS ORDERED: levETIRAcetam 1,000 MG in IV DEXTROSE 5% 100ML 100 ML IV ONE (19:30)
[2018-09-23 19:36] LABS: CALCIUM 9.1 mg/dL (8.5-10.1); CREATININE 1.3 mg/dL (0.6-1.0); GFR 49.9; POTASSIUM 3.9 mmol/L (3.5-5.1)
[2018-09-23 19:39] LABS: BASO # 0.1 x10^3/uL (0.0-0.2); BASO % 1 % (0-3); EOS % 1 % (0-3); HEMATOCRIT 39.5 % (36.0-47.0); HEMOGLOBIN 12.3 g/dL (12.0-15.5); LYMPH % 34 % (24-48); MEAN CORPUSCULAR HEMOGLOBIN 25 pg (25-35); MEAN CORPUSCULAR HGB CONC 31 g/dL (31-37); MEAN CORPUSCULAR VOLUME 81 fL (79-100); MONO # 0.4 x10^3/uL (0.0-1.1); MONO % 8 % (0-9); NEUT # 3.3 x10^3uL (1.8-7.7); NEUT % 56 % (31-73); PLATELET COUNT 145 x10^3/uL (140-400); RED BLOOD COUNT 4.85 x10^6/uL (3.50-5.40); RED CELL DISTRIBUTION WIDTH 15.9 % (11.5-14.5); WHITE BLOOD COUNT 5.8 x10^3/uL (4.0-11.0)
[2018-09-23 19:42] LABS: ALBUMIN 3.3 g/dL (3.4-5.0); ALBUMIN/GLOBULIN RATIO 0.8 (1.0-1.7); TOTAL BILIRUBIN 0.2 mg/dL (0.2-1.0); TOTAL PROTEIN 7.7 g/dL (6.4-8.2)
[2018-09-23 19:59] LABS: INFLUENZA A PATIENT NEGATIVE (NEGATIVE); INFLUENZA B PATIENT NEGATIVE (NEGATIVE)
[2018-09-23] MEDS ORDERED: ONDANSETRON ODT 4 MG TAB.RAPDIS. PO PRN (20:00)
[2018-09-23] MEDS ORDERED: CALCIUM CARBONATE 500 MG TAB.CHEW PO PRN (20:00)
[2018-09-23] MEDS ORDERED: ONDANSETRON PF 4 MG/2 ML VIAL. IV PRN (20:00)
[2018-09-23 20:14] LABS: BASE EXCESS ABG -11 mmol/L (-3-3); FIO2 ABG 100; HCO3 ABG 17 mmol/L (21-28); PCO2 ABG 49 mmHg (35-46); PO2 ABG 136 mmHg (65-108); SAT O2 ABG 98 % (92-99)
[2018-09-23 20:20] LABS: BILIRUBIN,URINE NEGATIVE (NEG); CLARITY,URINE CLEAR; COLOR,URINE YELLOW; NITRITE,URINE NEGATIVE (NEG); PH,URINE 6.5; PROTEIN,URINE 100 mg/dL (NEG-TRACE); UROBILINOGEN,URINE 0.2 mg/dL (0.2 mg/dL)
[2018-09-23] MEDS: IV NORMAL SALINE 1000ML BAG 1,000 ML IV SCH (20:24)
[2018-09-23 20:26] LABS: BARBITURATES NEG (NEG); BENZODIAZEPINES POS (NEG); CANNABINOIDS NEG (NEG); COCAINE NEG (NEG); METHADONE NEG (NEG); OPIATES NEG (NEG); PHENCYCLIDINE NEG (NEG)
--- NOTE | 2018-09-23 20:26 | RAD ---
CT HEAD INDICATION: Altered mental status COMPARISON: 07/26/2018 Exposure: One or more of the following individualized dose reduction techniques were utilized for this examination: 1. Automated exposure control 2. Adjustment of the mA and/or kV according to patient size 3. Use of iterative reconstruction technique TECHNIQUE: 5 mm contiguous axial images were obtained from the skull base to the vertex in both bone and soft tissue algorithm. FINDINGS: Mild bilateral periventricular white matter hypodensities likely chronic small vessel ischemic disease. Right frontal craniotomy changes with greater density identified in the supra sellar region likely aneurysmal clip artifact similar to prior exam. No evidence of acute intracranial hemorrhage. No extra-axial fluid collections. No mass effect or midline shift. Ventricular size is appropriate. Basal cisterns are patent. No fractures identified.Gonsalves-white differentiation is preserved.Globes and orbits are within normal limits. Paranasal sinuses and mastoid air cells are clear. IMPRESSION: No acute intracranial findings. Electronically signed by: Peña Mg MD (09/23/2018 8:23 PM) [facility]
--- NOTE | 2018-09-23 20:27 | PHYS DOC ---
Past Medical History Past Medical History: Asthma, Diabetes-Type II, GERD, High Cholesterol, Hypertension, Other Additional Past Medical Histor: brain aneurysm; drug use Past Surgical History: Cholecystectomy, Hysterectomy, Other Additional Past Surgical Histo: perforated ulcer Alcohol Use: None Drug Use: Cocaine Adult General Chief Complaint Chief Complaint: SEIZURE HPI HPI Patient is a 62 year old [place] female with history of insulin-dependent diabetes, seizure disorder, ruptured ovarian aneurysm, who presents with witnessed seizure and was difficult state/decreased LOC. On EMS arrival, patient unresponsive with increased fixed right upper extremity tone. Patient give given 5 mg of IM Versed treatment of seizure and transported expeditiously to the emergency department. Patient unresponsive on ED arrival with intact airway. Pupils are pinpoint and reactive, respirations are nonlabored, lung sounds are clear. O2 saturation initially reported to be 92% on room air, patient was placed on nonrebreather by EMS and maintains an O2 saturation greater than 99%. Blood sugar was checked and is normal. The pressure noted to be high, 200s over 100s. History is limited due to the patient's presentation. Additional history obtained from EMS who states patient has history of seizure medication noncompliance. [] Review of Systems Review of Systems Review symptoms as per history of present illness. All other review symptoms are negative. All other systems were reviewed and found to be within normal limits, except as documented in this note. Current Medications Current Medications Current Medications Medications (Trade) Dose Ordered Sig/Zee Start Time Stop Time Status Last Admin Dose Admin Acetaminophen (Tylenol) 500 mg PRN Q6HRS PRN 09/23/18 20:00 Albuterol Sulfate (Ventolin Neb Soln) 2.5 mg QID 09/23/18 21:00 Amlodipine Besylate (Norvasc) 10 mg DAILY 09/24/18 09:00 Calcium Carbonate/ Glycine (Tums) 500 mg PRN AFTMEALHC PRN 09/23/18 20:00 Famotidine (Pepcid) 20 mg BID 09/23/18 21:00 Hydralazine HCl (Apresoline) 25 mg PRN TID PRN 09/23/18 21:00 Labetalol HCl (Normodyne Iv Push) 10 mg PRN Q2HR PRN 09/23/18 20:00 Levetiracetam (Keppra) 500 mg BID 09/23/18 21:00 Levetiracetam 1000 mg/Dextrose 110 ml @ 440 mls/hr 1X ONCE 09/23/18 19:30 09/23/18 19:44 DC 09/23/18 20:23 440 MLS/HR Lorazepam (Ativan) 0.5 mg PRN QID PRN 09/23/18 20:00 Naloxone HCl (Narcan) 4 mg 1X ONCE 09/23/18 19:30 09/23/18 19:31 DC 09/23/18 19:20 4 MG Ondansetron HCl (Zofran Odt) 4 mg PRN Q6HRS PRN 09/23/18 20:00 Ondansetron HCl (Zofran) 4 mg PRN Q6HRS PRN 09/23/18 20:00 Sodium Chloride 1,000 ml @ 1,000 mls/hr 1X ONCE 09/23/18 21:00 09/23/18 21:59 Thiamine Mononitrate (Vitamin B-1) 100 mg DAILY 09/24/18 09:00 Ziprasidone (Geodon) 20 mg BID 09/23/18 21:00 Allergies Allergies Allergies Coded Allergies Type Severity Reaction Last Updated Verified Penicillins Allergy Intermediate N/V ITCH 03/30/18 Yes I S O L A T I O N *CONTACT* Allergy Unknown 03/29/18 Yes Physical Exam Physical Exam Constitutional: Well developed, well nourished, unresponsive.. [] HENT: Normocephalic, atraumatic, bilateral external ears normal, oropharynx moist, no oral exudates, nose normal. [] Eyes: Pupils pinpoint, equally round and reactive to light. [] Neck: supple. [] Cardiovascular:Heart rate regular rhythm, no murmur [] Lungs & Thorax: Bilateral breath sounds clear to auscultation [] Abdomen: Bowel sounds normal, soft, no tenderness. [] Skin: Warm, dry. [ Extremities: No deformities, no edema. [] Neurologic: Unresponsive, GCS 3. [] Current Patient Data Vital Signs Vital Signs Date Time Temp Pulse Resp B/P (MAP) Pulse Ox O2 Delivery O2 Flow Rate FiO2 09/23/18 20:39 98.9 98 12 192/91 (124) NonRebreather Mask 8.0 98.9 Lab Values Laboratory Tests Test 09/23/18 19:15 09/23/18 19:18 09/23/18 19:37 09/23/18 19:45 White Blood Count 5.8 x10^3/uL (4.0-11.0) Red Blood Count 4.85 x10^6/uL (3.50-5.40) Hemoglobin 12.3 g/dL (12.0-15.5) Hematocrit 39.5 % (36.0-47.0) Mean Corpuscular Volume 81 fL (79-100) Mean Corpuscular Hemoglobin 25 pg (25-35) Mean Corpuscular Hemoglobin Concent 31 g/dL (31-37) Red Cell Distribution Width 15.9 % (11.5-14.5) H Platelet Count 145 x10^3/uL (140-400) Neutrophils (%) (Auto) 56 % (31-73) Lymphocytes (%) (Auto) 34 % (24-48) Monocytes (%) (Auto) 8 % (0-9) Eosinophils (%) (Auto) 1 % (0-3) Basophils (%) (Auto) 1 % (0-3) Neutrophils # (Auto) 3.3 x10^3uL (1.8-7.7) Lymphocytes # (Auto) 2.0 x10^3/uL (1.0-4.8) Monocytes # (Auto) 0.4 x10^3/uL (0.0-1.1) Eosinophils # (Auto) 0.0 x10^3/uL (0.0-0.7) Basophils # (Auto) 0.1 x10^3/uL (0.0-0.2) Sodium Level 143 mmol/L (136-145) Potassium Level 3.9 mmol/L (3.5-5.1) Chloride Level 106 mmol/L (98-107) Carbon Dioxide Level 18 mmol/L (21-32) L Anion Gap 19 (6-14) H Blood Urea Nitrogen 26 mg/dL (7-20) H Creatinine 1.3 mg/dL (0.6-1.0) H Estimated GFR (Cockcroft-Gault) 49.9 BUN/Creatinine Ratio 20 (6-20) Glucose Level 139 mg/dL (70-99) H Lactic Acid Level 9.0 mmol/L (0.4-2.0) *H Calcium Level 9.1 mg/dL (8.5-10.1) Total Bilirubin 0.2 mg/dL (0.2-1.0) Aspartate Amino Transferase (AST) 13 U/L (15-37) L Alanine Aminotransferase (ALT) 14 U/L (14-59) Alkaline Phosphatase 95 U/L (46-116) Total Protein 7.7 g/dL (6.4-8.2) Albumin 3.3 g/dL (3.4-5.0) L Albumin/Globulin Ratio 0.8 (1.0-1.7) L Ethyl Alcohol Level < 10 mg/dL (0-10) O2 Saturation 98 % (92-99) Arterial Blood pH 7.16 (7.35-7.45) *L Arterial Blood pCO2 at Patient Temp 49 mmHg (35-46) H Arterial Blood pO2 at Patient Temp 136 mmHg (65-108) H Arterial Blood HCO3 17 mmol/L (21-28) L Arterial Blood Base Excess -11 mmol/L (-3-3) L FiO2 100 Influenza Type A Antigen Negative (NEGATIVE) Influenza Type B Antigen Negative (NEGATIVE) Urine Collection Type Unknown Urine Color Yellow Urine Clarity Clear Urine pH 6.5 Urine Specific [place] 1.020 Urine Protein 100 mg/dL (NEG-TRACE) Urine Glucose (UA) Negative mg/dL (NEG) Urine Ketones (Stick) Negative mg/dL (NEG) Urine Blood Negative (NEG) Urine Nitrite Negative (NEG) Urine Bilirubin Negative (NEG) Urine Urobilinogen Dipstick 0.2 mg/dL (0.2 mg/dL) Urine Leukocyte Esterase Negative (NEG) Urine RBC 6-10 /HPF (0-2) Urine WBC 1-4 /HPF (0-4) Urine Bacteria 0 /HPF (0-FEW) Urine Hyaline Casts Moderate /HPF Urine Granular Casts Occasional /HPF Urine Mucus Slight /LPF Urine Opiates Screen Neg (NEG) Urine Methadone Screen Neg (NEG) Urine Barbiturates Neg (NEG) Urine Phencyclidine Screen Neg (NEG) Urine Amphetamine/Methamphetamine Neg (NEG) Urine Benzodiazepines Screen Pos (NEG) Urine Cocaine Screen Neg (NEG) Urine Cannabinoids Screen Neg (NEG) Urine Ethyl Alcohol Neg (NEG) Test 09/23/18 19:52 Glucose (Fingerstick) 113 mg/dL (70-99) H Laboratory Tests 09/23/18 19:15 Laboratory Tests 09/23/18 19:15 EKG EKG [EKG: Reviewed] Radiology/Procedures Radiology/Procedures [CT head:NAD radiology report Chest x-ray: No obvious pulmonary infiltrate.] Course & Med Decision Making Course & Med Decision Making Pertinent Labs and Imaging studies reviewed. (See chart for details) [Seizure with prolonged postictal state after administration of Versed. CT head , imaging, EKG and labs reviewed. Findings consistent with metabolic acidosis secondary to prolonged seizure. Gradual improvement of mental status. Patient able to open eyes follow basic commands. IV Keppra load it. Patient will be admitted to the hospitalist service with anticipated neurology consult.] Dragon Disclaimer Dragon Disclaimer This electronic medical record was generated, in whole or in part, using a voice recognition dictation system. Departure Departure Impression: Primary Impression: Breakthrough seizure Additional Impressions: Post-ictal aphasia Accelerated hypertension Disposition: ADMITTED INPATIENT Admitting Physician: Rimma Borges Condition: GUARDED Referrals: KRISTINE MELENDEZ MD (PCP) Problem Qualifiers LINDA PERKINS DO Sep 23, 2018 20:27
[2018-09-23 20:30] LABS: AMPHETAMINE/METHAMPHETAMINE NEG (NEG)
[2018-09-23 20:33] LABS: GRANULAR CASTS,URINE OCCASIONAL /HPF; HYALINE CASTS, URINE MODERATE /HPF
[2018-09-23 20:34] LABS: BACTERIA,URINE 0 /HPF (0-FEW)
[2018-09-23] MEDS: ALBUTEROL SULFATE 2.5 MG/3 ML NEBU. CONT NEB SCH (21:00)
[2018-09-23] MEDS: levETIRAcetam 500 MG TABLET PO SCH (21:00)
[2018-09-23] MEDS: FAMOTIDINE 20 MG TABLET. PO SCH (21:00)
[2018-09-23] MEDS ORDERED: hydrALAZINE 25 MG TABLET PO PRN (21:00)
[2018-09-23] MEDS: ZIPRASIDONE 20 MG CAPSULE PO SCH (21:00)
--- NOTE | 2018-09-23 21:15 | RAD ---
EXAM: CHEST 1 VIEW History: Shortness of breath COMPARISON: 07/16/2018 FINDINGS: Mild cardiomegaly. Mild diffuse prominent appearing bilateral interstitial lung markings likely mild congestive changes minimal bibasilar lung airspace opacities. IMPRESSION: 1. Mild congestive changes. 2. Minimal bibasilar lung airspace opacities likely atelectasis or infiltrates. Electronically signed by: Peña Mg MD (09/23/2018 9:12 PM) [facility]
[2018-09-23] MEDS ORDERED: cloNIDine HCL 0.1 MG TABLET PO ONE (21:30)
[2018-09-24] VITALS (7 sets, daily range): BP systolic 150–191; BP diastolic 81–96
--- NOTE | 2018-09-24 01:23 | NUR ---
at 0000 pt admitted to this floor, received pt via stretcher with iv, non rebreather mask at 8Lpm and pantoja in placed, pt was asleep but able to respond by nodding her head but eyes remained closed, pt admission assessments were unable to be completed/filled due to pt won't to respond verbally.
--- NOTE | 2018-09-24 01:31 | NUR ---
will continue to monitor pt, pt is currently on 4L via nv.
[2018-09-24] MEDS: IV NORMAL SALINE 1000ML BAG 1,000 ML IV SCH ×2 (05:35→17:41)
[2018-09-24] MEDS ORDERED: INFLUENZA VAX SCREEN BY RX. MC PRN (08:00)
[2018-09-24] MEDS: ALBUTEROL SULFATE 2.5 MG/3 ML NEBU. CONT NEB SCH ×4 (08:13→20:00)
[2018-09-24] MEDS: FAMOTIDINE 20 MG TABLET. PO SCH ×2 (10:45→21:00)
[2018-09-24] MEDS: amLODIPine BESYLATE 10 MG TABLET PO SCH (10:45)
[2018-09-24] MEDS: levETIRAcetam 500 MG TABLET PO SCH (10:45)
[2018-09-24] MEDS: THIAMINE 100 MG TABLET. PO SCH (10:45)
[2018-09-24] MEDS: ZIPRASIDONE 20 MG CAPSULE PO SCH ×2 (10:45→21:00)
[2018-09-24] MEDS: ACETAMINOPHEN 500 MG TABLET PO PRN (10:45)
--- NOTE | 2018-09-24 11:26 | PDOC1 ---
History and Physical Date of Admission Date of Admission DATE: 09/24/18 TIME: 11:22 Identification/Chief Complaint Chief Complaint SZ and was post ictal at the emergency room Source Source: Caregiver, Chart review, Patient History of Present Illness History of Present Illness 62-year-old -[place] female not the best historian, minimal cooperatively on my encounter, hx of seizure. Apparently witnessed a seizure by staff, gets seizure every year. Does not follow with a neurologist and there is a mention of noncompliance in chart. Supposed to be on seizure medications but admits to forgetting some. Did receive versed and ativan hence was post ictal at the emergency room. Admitted henceforth with consult neurology. SHe looks tired and not touching breakfast, labs look okay. Claims history of diabetes type 1 insulin requiring. Unknown hemoglobin A1c. MEntion of some reports of low sats initially at the emergency room needing nonrebreather. That has since resolved. Past Medical History Cardiovascular: HTN Pulmonary: Asthma CENTRAL NERVOUS SYSTEM: Seizure, Other GI: GERD Endocrine: Diabetes Past Surgical History Past Surgical History: Other Family History Family History: No Significant Social History Smoke: No ALCOHOL: none Drugs: None Current Problem List Problem List Problems Medical Problems: (1) Accelerated hypertension Status: Acute (2) Breakthrough seizure Status: Acute (3) Post-ictal aphasia Status: Acute Current Medications Current Medications Current Medications Sodium Chloride 1,000 ml @ 1,000 mls/hr 1X ONCE IV Last administered on at 19:26; Start 09/23/18 at 19:30; Stop 09/23/18 at 20:29; Status DC Naloxone HCl (Narcan) 4 mg 1X ONCE IV Last administered on 09/23/18at 19:20; Start 09/23/18 at 19:30; Stop 09/23/18 at 19:31; Status DC Levetiracetam 1000 mg/Dextrose 110 ml @ 440 mls/hr 1X ONCE IV Last administered on 09/23/18at 20:23; Start 09/23/18 at 19:30; Stop 09/23/18 at 19:44 ; Status DC Sodium Chloride 1,000 ml @ 100 mls/hr Q10H IV Last administered on 09/24/18at 05:35; Start 09/23/18 at 20:00 Lorazepam (Ativan) 2 mg PRN Q4HRS PRN IV seizures; Start 09/23/18 at 20:00 Calcium Carbonate/ Glycine (Tums) 500 mg PRN AFTMEALHC PRN PO INDIGESTION; Start 09/23/18 at 20:00 Acetaminophen (Tylenol) 500 mg PRN Q6HRS PRN PO MILD PAIN / TEMP Last administered on 09/24/18at 10:45; Start 09/23/18 at 20:00 Ondansetron HCl (Zofran) 4 mg PRN Q6HRS PRN IV NAUSEA/VOMITING; Start 09/23/18 at 20:00 Ondansetron HCl (Zofran Odt) 4 mg PRN Q6HRS PRN PO NAUSEA/VOMITING; Start 09/23 at 20:00 Labetalol HCl (Normodyne Iv Push) 10 mg PRN Q2HR PRN IVP HYPERTENSION, SEE COMMENTS; Start 09/23/18 at 20:00 Albuterol Sulfate (Ventolin Neb Soln) 2.5 mg QID CONT NEB Last administered on 09/24/18at 08:13; Start 09/23/18 at 21:00 Amlodipine Besylate (Norvasc) 10 mg DAILY PO Last administered on 09/24/18at 10: 45; Start 09/24/18 at 09:00 Levetiracetam (Keppra) 500 mg BID PO Last administered on 09/24/18at 10:45; Start 09/23/18 at 21:00 Lorazepam (Ativan) 0.5 mg PRN QID PRN PO ANXIETY / AGITATION; Start 09/23/18 at 20:00 Hydralazine HCl (Apresoline) 25 mg PRN TID PRN PO HYPERTENSION; Start 09/23/18 at 21:00 Famotidine (Pepcid) 20 mg BID PO Last administered on 09/24/18at 10:45; Start at 21:00 Thiamine Mononitrate (Vitamin B-1) 100 mg DAILY PO Last administered on at 10:45; Start 09/24/18 at 09:00 Ziprasidone (Geodon) 20 mg BID PO Last administered on 09/24/18at 10:45; Start 09/23/18 at 21:00 Sodium Chloride 1,000 ml @ 1,000 mls/hr 1X ONCE IV Last administered on at 22:09; Start 09/23/18 at 21:00; Stop 09/23/18 at 21:59; Status DC Clonidine HCl (Catapres) 0.2 mg 1X ONCE PO Last administered on 09/23/18at 22: 02; Start 09/23/18 at 21:30; Stop 09/23/18 at 21:31; Status DC Info (FLU VACCINE SCREEN per RX) 0.5 each PRN DAILY PRN [facility] UNABLE TO RESPOND; Start 09/24/18 at 08:00 Active Scripts Active Hydralazine Hcl 25 Mg Tablet 25 Mg PO PRN TID PRN 30 Days For SBP > 150mmHg take as needed 3 times per day Amlodipine Besylate 10 Mg Tablet 10 Mg PO DAILY 30 Days Keppra (Levetiracetam) 500 Mg Tablet 500 Mg PO BID 30 Days Geodon (Ziprasidone Hcl) 20 Mg Capsule 20 Mg PO BID 30 Days Vitamin B-1 (Thiamine Mononitrate) 100 Mg Tablet 100 Mg PO DAILY 30 Days Reported Ranitidine Hcl 150 Mg Capsule 1 Cap PO BID Ativan (Lorazepam) 0.5 Mg Tablet 0.5 Mg PO PRN PRN Proair Hfa Inhaler (Albuterol Sulfate) 8.5 Gm Hfa.aer.ad 2 Puff IH PRN Q4-6HRS Allergies Allergies: Coded Allergies: Penicillins (Verified Allergy, Intermediate, N/V ITCH, 03/30/18) I S O L A T I O N *CONTACT* (Verified Allergy, Unknown, 03/29/18) carbapenem resistant PSA ROS Review of System limited cooperativity hence limited ROS, feels tired Physical Exam General: No acute distress HEENT: Atraumatic, PERRLA, EOMI, Mucous membr. moist/pink Lungs: Clear to auscultation Heart: S1S2, RRR, no thrills, no rubs Cardiovascular: S1, S2 Breasts: Normal, Rt breast nml w/o mass, Lt breast nml w/o mass, Nipples normal Abdomen: Normal bowel sounds, Soft, No tenderness, No hepatosplenomegaly, No masses Rectal Exam: not examined PELVIC: Nml ext genitalia Extremities: No clubbing, No cyanosis, No edema, Normal pulses, No tenderness/ swelling Skin: No rashes, No breakdown, No significant lesion Neuro: Normal gait, Normal speech, Strength at 5/5 X4 ext, Normal tone, Sensation intact, Cranial nerves 3-12 NL, Reflexes 2+ Psych/Mental Status: Mental status NL, Mood NL Vitals Vitals Vital Signs Date Time Temp Pulse Resp B/P (MAP) Pulse Ox O2 Delivery O2 Flow Rate FiO2 09/24/18 10:45 75 156/81 09/24/18 08:15 99 Nasal Cannula 3.0 09/24/18 07:00 99.6 20 99.6 Labs Labs Laboratory Tests Test 09/23/18 19:15 09/23/18 19:18 09/23/18 19:37 09/23/18 19:45 White Blood Count 5.8 x10^3/uL (4.0-11.0) Red Blood Count 4.85 x10^6/uL (3.50-5.40) Hemoglobin 12.3 g/dL (12.0-15.5) Hematocrit 39.5 % (36.0-47.0) Mean Corpuscular Volume 81 fL (79-100) Mean Corpuscular Hemoglobin 25 pg (25-35) Mean Corpuscular Hemoglobin Concent 31 g/dL (31-37) Red Cell Distribution Width 15.9 % (11.5-14.5) Platelet Count 145 x10^3/uL (140-400) Neutrophils (%) (Auto) 56 % (31-73) Lymphocytes (%) (Auto) 34 % (24-48) Monocytes (%) (Auto) 8 % (0-9) Eosinophils (%) (Auto) 1 % (0-3) Basophils (%) (Auto) 1 % (0-3) Neutrophils # (Auto) 3.3 x10^3uL (1.8-7.7) Lymphocytes # (Auto) 2.0 x10^3/uL (1.0-4.8) Monocytes # (Auto) 0.4 x10^3/uL (0.0-1.1) Eosinophils # (Auto) 0.0 x10^3/uL (0.0-0.7) Basophils # (Auto) 0.1 x10^3/uL (0.0-0.2) Sodium Level 143 mmol/L (136-145) Potassium Level 3.9 mmol/L (3.5-5.1) Chloride Level 106 mmol/L (98-107) Carbon Dioxide Level 18 mmol/L (21-32) Anion Gap 19 (6-14) Blood Urea Nitrogen 26 mg/dL (7-20) Creatinine 1.3 mg/dL (0.6-1.0) Estimated GFR (Cockcroft-Gault) 49.9 BUN/Creatinine Ratio 20 (6-20) Glucose Level 139 mg/dL (70-99) Lactic Acid Level 9.0 mmol/L (0.4-2.0) Calcium Level 9.1 mg/dL (8.5-10.1) Total Bilirubin 0.2 mg/dL (0.2-1.0) Aspartate Amino Transf (AST/SGOT) 13 U/L (15-37) Alanine Aminotransferase (ALT/SGPT) 14 U/L (14-59) Alkaline Phosphatase 95 U/L (46-116) Total Protein 7.7 g/dL (6.4-8.2) Albumin 3.3 g/dL (3.4-5.0) Albumin/Globulin Ratio 0.8 (1.0-1.7) Ethyl Alcohol Level < 10 mg/dL (0-10) O2 Saturation 98 % (92-99) Arterial Blood pH 7.16 (7.35-7.45) Arterial Blood pCO2 at Patient Temp 49 mmHg (35-46) Arterial Blood pO2 at Patient Temp 136 mmHg (65-108) Arterial Blood HCO3 17 mmol/L (21-28) Arterial Blood Base Excess -11 mmol/L (-3-3) FiO2 100 Influenza Type A Antigen Negative (NEGATIVE) Influenza Type B Antigen Negative (NEGATIVE) Urine Collection Type Unknown Urine Color Yellow Urine Clarity Clear Urine pH 6.5 Urine Specific [place] 1.020 Urine Protein 100 mg/dL (NEG-TRACE) Urine Glucose (UA) Negative mg/dL (NEG) Urine Ketones (Stick) Negative mg/dL (NEG) Urine Blood Negative (NEG) Urine Nitrite Negative (NEG) Urine Bilirubin Negative (NEG) Urine Urobilinogen Dipstick 0.2 mg/dL (0.2 mg/dL) Urine Leukocyte Esterase Negative (NEG) Urine RBC 6-10 /HPF (0-2) Urine WBC 1-4 /HPF (0-4) Urine Bacteria 0 /HPF (0-FEW) Urine Hyaline Casts Moderate /HPF Urine Granular Casts Occasional /HPF Urine Mucus Slight /LPF Urine Opiates Screen Neg (NEG) Urine Methadone Screen Neg (NEG) Urine Barbiturates Neg (NEG) Urine Phencyclidine Screen Neg (NEG) Urine Amphetamine/Methamphetamine Neg (NEG) Urine Benzodiazepines Screen Pos (NEG) Urine Cocaine Screen Neg (NEG) Urine Cannabinoids Screen Neg (NEG) Urine Ethyl Alcohol Neg (NEG) Test 09/23/18 19:52 09/23/18 23:00 Glucose (Fingerstick) 113 mg/dL (70-99) Lactic Acid Level 0.8 mmol/L (0.4-2.0) Laboratory Tests Test 09/23/18 19:15 09/23/18 19:18 09/23/18 19:37 09/23/18 19:45 White Blood Count 5.8 x10^3/uL (4.0-11.0) Red Blood Count 4.85 x10^6/uL (3.50-5.40) Hemoglobin 12.3 g/dL (12.0-15.5) Hematocrit 39.5 % (36.0-47.0) Mean Corpuscular Volume 81 fL (79-100) Mean Corpuscular Hemoglobin 25 pg (25-35) Mean Corpuscular Hemoglobin Concent 31 g/dL (31-37) Red Cell Distribution Width 15.9 % (11.5-14.5) Platelet Count 145 x10^3/uL (140-400) Neutrophils (%) (Auto) 56 % (31-73) Lymphocytes (%) (Auto) 34 % (24-48) Monocytes (%) (Auto) 8 % (0-9) Eosinophils (%) (Auto) 1 % (0-3) Basophils (%) (Auto) 1 % (0-3) Neutrophils # (Auto) 3.3 x10^3uL (1.8-7.7) Lymphocytes # (Auto) 2.0 x10^3/uL (1.0-4.8) Monocytes # (Auto) 0.4 x10^3/uL (0.0-1.1) Eosinophils # (Auto) 0.0 x10^3/uL (0.0-0.7) Basophils # (Auto) 0.1 x10^3/uL (0.0-0.2) Sodium Level 143 mmol/L (136-145) Potassium Level 3.9 mmol/L (3.5-5.1) Chloride Level 106 mmol/L (98-107) Carbon Dioxide Level 18 mmol/L (21-32) Anion Gap 19 (6-14) Blood Urea Nitrogen 26 mg/dL (7-20) Creatinine 1.3 mg/dL (0.6-1.0) Estimated GFR (Cockcroft-Gault) 49.9 BUN/Creatinine Ratio 20 (6-20) Glucose Level 139 mg/dL (70-99) Lactic Acid Level 9.0 mmol/L (0.4-2.0) Calcium Level 9.1 mg/dL (8.5-10.1) Total Bilirubin 0.2 mg/dL (0.2-1.0) Aspartate Amino Transf (AST/SGOT) 13 U/L (15-37) Alanine Aminotransferase (ALT/SGPT) 14 U/L (14-59) Alkaline Phosphatase 95 U/L (46-116) Total Protein 7.7 g/dL (6.4-8.2) Albumin 3.3 g/dL (3.4-5.0) Albumin/Globulin Ratio 0.8 (1.0-1.7) Ethyl Alcohol Level < 10 mg/dL (0-10) O2 Saturation 98 % (92-99) Arterial Blood pH 7.16 (7.35-7.45) Arterial Blood pCO2 at Patient Temp 49 mmHg (35-46) Arterial Blood pO2 at Patient Temp 136 mmHg (65-108) Arterial Blood HCO3 17 mmol/L (21-28) Arterial Blood Base Excess -11 mmol/L (-3-3) FiO2 100 Influenza Type A Antigen Negative (NEGATIVE) Influenza Type B Antigen Negative (NEGATIVE) Urine Collection Type Unknown Urine Color Yellow Urine Clarity Clear Urine pH 6.5 Urine Specific [place] 1.020 Urine Protein 100 mg/dL (NEG-TRACE) Urine Glucose (UA) Negative mg/dL (NEG) Urine Ketones (Stick) Negative mg/dL (NEG) Urine Blood Negative (NEG) Urine Nitrite Negative (NEG) Urine Bilirubin Negative (NEG) Urine Urobilinogen Dipstick 0.2 mg/dL (0.2 mg/dL) Urine Leukocyte Esterase Negative (NEG) Urine RBC 6-10 /HPF (0-2) Urine WBC 1-4 /HPF (0-4) Urine Bacteria 0 /HPF (0-FEW) Urine Hyaline Casts Moderate /HPF Urine Granular Casts Occasional /HPF Urine Mucus Slight /LPF Urine Opiates Screen Neg (NEG) Urine Methadone Screen Neg (NEG) Urine Barbiturates Neg (NEG) Urine Phencyclidine Screen Neg (NEG) Urine Amphetamine/Methamphetamine Neg (NEG) Urine Benzodiazepines Screen Pos (NEG) Urine Cocaine Screen Neg (NEG) Urine Cannabinoids Screen Neg (NEG) Urine Ethyl Alcohol Neg (NEG) Test 09/23/18 19:52 09/23/18 23:00 Glucose (Fingerstick) 113 mg/dL (70-99) Lactic Acid Level 0.8 mmol/L (0.4-2.0) VTE Prophylaxis Ordered VTE Prophylaxis Devices: Yes VTE Pharmacological Prophylaxi: Yes Assessment/Plan Assessment/Plan SZ, with history of seizures-noncompliance Postictal state, resolved Diabetes type 1 on insulin- unknown hemoglobin A1c Transit hypoxia at the emergency room-resolved Plan: regular diet Await neurology rounds Seizure precautions Insulin sliding scale I have reconciled home meds Discussed with RYALND RICH MD Sep 24, 2018 11:26
[2018-09-24] MEDS ORDERED: levETIRAcetam 500 MG in IV DEXTROSE 5% 100ML 100 ML IV SCH (21:00)
--- NOTE | 2018-09-24 23:23 | CONS ---
DATE OF CONSULTATION: 09/24/2018 REFERRING PHYSICIAN: Dr. Borges. REASON FOR CONSULTATION: Encephalopathy and seizure. HISTORY OF PRESENT ILLNESS: The patient is a 62-year-old woman who presented to the Emergency Room with decline in level of consciousness. When EMS arrived, she was unresponsive and had increased right upper extremity tone. She was given Versed for treatment of the seizure and transported to the Emergency Department. She was having very elevated blood pressure in the 200 systolic range. She had a seizure when admitted in July. She was seen by Dr. Jimenez at her last admission, but never followed up. She was placed on Keppra 500 mg twice per day. She does have a history of medication noncompliance. Since being admitted to the hospital yesterday, she has been poorly responsive. PAST MEDICAL HISTORY: 1. Admitted 07/2018 with toxic encephalopathy. 2. In 07/2018, positive drug screen for presumptive cocaine. 3. History of seizure. 4. Renal failure. 5. History of ruptured cerebral aneurysm. 6. Diabetes. 7. Hypertension. 8. Hyperlipidemia. 9. Gastroesophageal reflux disease. 10. Cholecystectomy. 11. Hysterectomy. 12. Perforated ulcer. 13. History of colon cancer. ALLERGIES: PENICILLINS. MEDICATIONS PRIOR TO ADMISSION: Albuterol metered-dose inhaler as needed, amlodipine 10 mg, hydralazine 25 mg 3 times per day as needed, levetiracetam 500 mg twice per day, lorazepam 0.5 mg as needed, ranitidine 150 mg twice per day, thiamine 100 mg and Geodon 20 mg twice per day. Medicine compliance is not known. FAMILY HISTORY: Noncontributory. SOCIAL HISTORY: According to records, she does not smoke tobacco, drink alcohol or use recreational drugs. At the last admission, drug screen was positive for cocaine, but I do not know if this was ever confirmed. REVIEW OF SYSTEMS: Not obtainable. PHYSICAL EXAMINATION: VITAL SIGNS: Blood pressure was 176/85, pulse 75, respirations 20 and temperature 100.3 degrees Fahrenheit. Oximetry was 95% on room air. Weight was 117.1 pounds, height 65 inches with a calculated body mass index of 19.5. GENERAL: She was lying in the bed with her eyes closed, sleeping. With stimulation, she would briefly awaken. She would open her eyes to command. She did not follow other commands. She just tried to pull her covers on herself and was not interactive. She did answer some simple questions. She was not oriented to place, month or year. She did know her name. NEUROLOGIC: Examination of the cranial nerves revealed that visual campuzano were unclear. When held open, she did not seem to blink to visual stimulation. Oculocephalic reflex was intact. Pupils were small and difficult to tell if they reacted. The face was symmetric. She responded to painful stimulation bilaterally in her face. She responded to loud clap. There was no drooping of the face. Muscle bulk appeared somewhat diminished throughout. Tone was increased throughout. There was no tremor. Power testing was not formally possible. When held in the air, the arms fell equally. When the legs were held in the air, they felt equally as well. I did not see lateralizing weakness. Reflexes were 2+/4 and symmetric in the upper and lower extremities. Toes were not upgoing. Coordination testing was not possible. Sensory exam was intact to nail bed pressure on all extremities. She withdrew her feet to plantar stimulation with equal vigor. Gait was not testable. LUNGS: Auscultation of the carotid arteries did not reveal a bruit. HEART: Heart rhythm was regular, without a murmur. EXTREMITIES: Peripheral pulses were symmetric in the hands and feet. LABORATORY DATA: CBC revealed a normal white blood cell count, hemoglobin, hematocrit and platelet count. Sodium, potassium and chloride were normal, but CO2 was low at 18. BUN was elevated at 26 and creatinine 1.3 with a calculated GFR of 49.9. Glucose was elevated at 139. Calcium was normal. Liver enzymes were not elevated. Albumin was low at 3.3. Lactic acid was initially elevated on 09/23/2018 at 19:15 to 9. This was repeated at 23:00 and it was down to 0.8. Urine drug screen was positive for benzodiazepines, which she did receive by EMS. Alcohol was not detected. Influenza type A and B screening was negative. Urinalysis revealed 6-10 red blood cells, 1-4 white blood cells and moderate hyaline casts. CT scan of the brain was performed on 09/23/2018 and revealed no acute intracranial process. There was mild bilateral chronic small vessel disease. There was aneurysmal clip artifact. IMPRESSION: The patient is a 62-year-old woman with a number of health conditions, who likely had a seizure. There is a history of medication noncompliance, but I do not have any family to prove or disprove that this is the situation. She does appear encephalopathic at this time and poorly responsive. I believe the CAT scan did not reveal hemorrhage. There was no evidence of acute stroke. She has an aneurysmal clip, so cannot undergo an MRI, as we do not know if this is for a magnetic. RECOMMENDATIONS: I will order a few other labs looking into the cause of encephalopathy. I will make sure she is receiving levetiracetam intravenously until she is able to take oral again. We could consider repeating the CT scan of the head in 48 hours if there is no improvement. I appreciate being involved in her care. SHAUNA LOPEZ MD DR: MALATHI/syed JOB#: [id number] / [id number] Dr. Barbara Navarrete Dr.
[2018-09-24] MEDS: LABETALOL 20 MG/4 ML DISP.SYRIN. IVP PRN (23:47)
[2018-09-25] MEDS: IV NORMAL SALINE 1000ML BAG 1,000 ML IV SCH ×3 (02:00→22:45)
[2018-09-25 03:35] VITALS: BP 170/80
[2018-09-25 05:24] LABS: BASO % 1 % (0-3); EOS % 1 % (0-3); HEMATOCRIT 38.2 % (36.0-47.0); HEMOGLOBIN 12.2 g/dL (12.0-15.5); LYMPH % 24 % (24-48); MEAN CORPUSCULAR HEMOGLOBIN 26 pg (25-35); MEAN CORPUSCULAR HGB CONC 32 g/dL (31-37); MEAN CORPUSCULAR VOLUME 79 fL (79-100); MONO # 0.5 x10^3/uL (0.0-1.1); MONO % 11 % (0-9); NEUT # 2.7 x10^3uL (1.8-7.7); NEUT % 64 % (31-73); PLATELET COUNT 106 x10^3/uL (140-400); RED BLOOD COUNT 4.81 x10^6/uL (3.50-5.40); RED CELL DISTRIBUTION WIDTH 15.4 % (11.5-14.5); WHITE BLOOD COUNT 4.2 x10^3/uL (4.0-11.0)
[2018-09-25] MEDS: LABETALOL 20 MG/4 ML DISP.SYRIN. IVP PRN (06:11)
[2018-09-25 07:40] VITALS: BP 140/64
--- NOTE | 2018-09-25 08:27 | NUR ---
Chart review done. Pt admitted w/ encephalopathy, s/p seizure. Was not following directions. Tone increased per neurologist note. Pt may benefit from PT/OT evaluation w/ treatment as indicated by anuj. Addendum: 09/25/18 at 0810 by KYLE CABRAL OT Amended: Links added.
[2018-09-25] MEDS: ALBUTEROL SULFATE 2.5 MG/3 ML NEBU. CONT NEB SCH ×4 (08:31→20:12)
--- NOTE | 2018-09-25 09:12 | PDOC ---
PROGRESS NOTES Assessment Problems Medical Problems: (1) Accelerated hypertension Status: Acute (2) Breakthrough seizure Status: Acute (3) Post-ictal aphasia Status: Acute Epilepsy, gen convulsive, seizure. History of medication noncompliance, she denies Probably cannot undergo an MRI, history of aneurysm clipping Plan Switch to oral levetiracetam Monitor SNU? Objective Vital Signs Date Time Temp Pulse Resp B/P (MAP) Pulse Ox O2 Delivery O2 Flow Rate FiO2 09/25/18 08:35 93 Nasal Cannula 2.0 09/25/18 07:40 99.3 63 18 140/64 (89) 99.3 Intake and Output 09/25/18 07:00 Intake Total 100 ml Output Total 3250 ml Balance -3150 ml Intake Oral 100 ml Output Urine Total 3250 ml PHYSICAL EXAM Alert. Oriented to place and person, not time. PERRL. EOMI. CN: no focal findings. Muscle tone: normal. Muscle strength: 4/5 DTR: 2+ Plantar reflex: flexor Gait: not examined in bed. Sensory exam: no abnormal findings. No cerebellar signs elicited. Review of Relevant I have reviewed the following items remi (where applicable) has been applied. Labs Laboratory Tests Test 09/23/18 19:15 09/23/18 19:18 09/23/18 19:37 09/23/18 19:45 White Blood Count 5.8 x10^3/uL (4.0-11.0) Red Blood Count 4.85 x10^6/uL (3.50-5.40) Hemoglobin 12.3 g/dL (12.0-15.5) Hematocrit 39.5 % (36.0-47.0) Mean Corpuscular Volume 81 fL (79-100) Mean Corpuscular Hemoglobin 25 pg (25-35) Mean Corpuscular Hemoglobin Concent 31 g/dL (31-37) Red Cell Distribution Width 15.9 % (11.5-14.5) Platelet Count 145 x10^3/uL (140-400) Neutrophils (%) (Auto) 56 % (31-73) Lymphocytes (%) (Auto) 34 % (24-48) Monocytes (%) (Auto) 8 % (0-9) Eosinophils (%) (Auto) 1 % (0-3) Basophils (%) (Auto) 1 % (0-3) Neutrophils # (Auto) 3.3 x10^3uL (1.8-7.7) Lymphocytes # (Auto) 2.0 x10^3/uL (1.0-4.8) Monocytes # (Auto) 0.4 x10^3/uL (0.0-1.1) Eosinophils # (Auto) 0.0 x10^3/uL (0.0-0.7) Basophils # (Auto) 0.1 x10^3/uL (0.0-0.2) Sodium Level 143 mmol/L (136-145) Potassium Level 3.9 mmol/L (3.5-5.1) Chloride Level 106 mmol/L (98-107) Carbon Dioxide Level 18 mmol/L (21-32) Anion Gap 19 (6-14) Blood Urea Nitrogen 26 mg/dL (7-20) Creatinine 1.3 mg/dL (0.6-1.0) Estimated GFR (Cockcroft-Gault) 49.9 BUN/Creatinine Ratio 20 (6-20) Glucose Level 139 mg/dL (70-99) Lactic Acid Level 9.0 mmol/L (0.4-2.0) Calcium Level 9.1 mg/dL (8.5-10.1) Total Bilirubin 0.2 mg/dL (0.2-1.0) Aspartate Amino Transf (AST/SGOT) 13 U/L (15-37) Alanine Aminotransferase (ALT/SGPT) 14 U/L (14-59) Alkaline Phosphatase 95 U/L (46-116) Total Protein 7.7 g/dL (6.4-8.2) Albumin 3.3 g/dL (3.4-5.0) Albumin/Globulin Ratio 0.8 (1.0-1.7) Ethyl Alcohol Level < 10 mg/dL (0-10) O2 Saturation 98 % (92-99) Arterial Blood pH 7.16 (7.35-7.45) Arterial Blood pCO2 at Patient Temp 49 mmHg (35-46) Arterial Blood pO2 at Patient Temp 136 mmHg (65-108) Arterial Blood HCO3 17 mmol/L (21-28) Arterial Blood Base Excess -11 mmol/L (-3-3) FiO2 100 Influenza Type A Antigen Negative (NEGATIVE) Influenza Type B Antigen Negative (NEGATIVE) Urine Collection Type Unknown Urine Color Yellow Urine Clarity Clear Urine pH 6.5 Urine Specific Jessie 1.020 Urine Protein 100 mg/dL (NEG-TRACE) Urine Glucose (UA) Negative mg/dL (NEG) Urine Ketones (Stick) Negative mg/dL (NEG) Urine Blood Negative (NEG) Urine Nitrite Negative (NEG) Urine Bilirubin Negative (NEG) Urine Urobilinogen Dipstick 0.2 mg/dL (0.2 mg/dL) Urine Leukocyte Esterase Negative (NEG) Urine RBC 6-10 /HPF (0-2) Urine WBC 1-4 /HPF (0-4) Urine Bacteria 0 /HPF (0-FEW) Urine Hyaline Casts Moderate /HPF Urine Granular Casts Occasional /HPF Urine Mucus Slight /LPF Urine Opiates Screen Neg (NEG) Urine Methadone Screen Neg (NEG) Urine Barbiturates Neg (NEG) Urine Phencyclidine Screen Neg (NEG) Urine Amphetamine/Methamphetamine Neg (NEG) Urine Benzodiazepines Screen Pos (NEG) Urine Cocaine Screen Neg (NEG) Urine Cannabinoids Screen Neg (NEG) Urine Ethyl Alcohol Neg (NEG) Test 09/23/18 19:52 09/23/18 23:00 09/25/18 03:45 Glucose (Fingerstick) 113 mg/dL (70-99) Lactic Acid Level 0.8 mmol/L (0.4-2.0) White Blood Count 4.2 x10^3/uL (4.0-11.0) Red Blood Count 4.81 x10^6/uL (3.50-5.40) Hemoglobin 12.2 g/dL (12.0-15.5) Hematocrit 38.2 % (36.0-47.0) Mean Corpuscular Volume 79 fL (79-100) Mean Corpuscular Hemoglobin 26 pg (25-35) Mean Corpuscular Hemoglobin Concent 32 g/dL (31-37) Red Cell Distribution Width 15.4 % (11.5-14.5) Platelet Count 106 x10^3/uL (140-400) Neutrophils (%) (Auto) 64 % (31-73) Lymphocytes (%) (Auto) 24 % (24-48) Monocytes (%) (Auto) 11 % (0-9) Eosinophils (%) (Auto) 1 % (0-3) Basophils (%) (Auto) 1 % (0-3) Neutrophils # (Auto) 2.7 x10^3uL (1.8-7.7) Lymphocytes # (Auto) 1.0 x10^3/uL (1.0-4.8) Monocytes # (Auto) 0.5 x10^3/uL (0.0-1.1) Eosinophils # (Auto) 0.0 x10^3/uL (0.0-0.7) Basophils # (Auto) 0.0 x10^3/uL (0.0-0.2) Ammonia < 10 mcmol/L (11-34) Laboratory Tests Test 09/25/18 03:45 White Blood Count 4.2 x10^3/uL (4.0-11.0) Red Blood Count 4.81 x10^6/uL (3.50-5.40) Hemoglobin 12.2 g/dL (12.0-15.5) Hematocrit 38.2 % (36.0-47.0) Mean Corpuscular Volume 79 fL (79-100) Mean Corpuscular Hemoglobin 26 pg (25-35) Mean Corpuscular Hemoglobin Concent 32 g/dL (31-37) Red Cell Distribution Width 15.4 % (11.5-14.5) Platelet Count 106 x10^3/uL (140-400) Neutrophils (%) (Auto) 64 % (31-73) Lymphocytes (%) (Auto) 24 % (24-48) Monocytes (%) (Auto) 11 % (0-9) Eosinophils (%) (Auto) 1 % (0-3) Basophils (%) (Auto) 1 % (0-3) Neutrophils # (Auto) 2.7 x10^3uL (1.8-7.7) Lymphocytes # (Auto) 1.0 x10^3/uL (1.0-4.8) Monocytes # (Auto) 0.5 x10^3/uL (0.0-1.1) Eosinophils # (Auto) 0.0 x10^3/uL (0.0-0.7) Basophils # (Auto) 0.0 x10^3/uL (0.0-0.2) Ammonia < 10 mcmol/L (11-34) Medications Current Medications Sodium Chloride 1,000 ml @ 1,000 mls/hr 1X ONCE IV Last administered on 19:26; Start 09/23/18 at 19:30; Stop 09/23/18 at 20:29; Status DC Naloxone HCl (Narcan) 4 mg 1X ONCE IV Last administered on 09/23/18 19:20; Start 09/23/18 at 19:30; Stop 09/23/18 at 19:31; Status DC Levetiracetam 1000 mg/Dextrose 110 ml @ 440 mls/hr 1X ONCE IV Last administered on 09/23/18 20:23; Start 09/23/18 at 19:30; Stop 09/23/18 at 19:44 ; Status DC Sodium Chloride 1,000 ml @ 100 mls/hr Q10H IV Last administered on 09/25/18 06:02; Start 09/23/18 at 20:00 Lorazepam (Ativan) 2 mg PRN Q4HRS PRN IV seizures; Start 09/23/18 at 20:00 Calcium Carbonate/ Glycine (Tums) 500 mg PRN AFTMEALHC PRN PO INDIGESTION; Start 09/23/18 at 20:00 Acetaminophen (Tylenol) 500 mg PRN Q6HRS PRN PO MILD PAIN / TEMP Last administered on 09/24/18 10:45; Start 09/23/18 at 20:00 Ondansetron HCl (Zofran) 4 mg PRN Q6HRS PRN IV NAUSEA/VOMITING; Start 09/23/18 at 20:00 Ondansetron HCl (Zofran Odt) 4 mg PRN Q6HRS PRN PO NAUSEA/VOMITING; Start 09/23 at 20:00 Labetalol HCl (Normodyne Iv Push) 10 mg PRN Q2HR PRN IVP HYPERTENSION, SEE COMMENTS Last administered on 09/25/18at 06:11; Start 09/23/18 at 20:00 Albuterol Sulfate (Ventolin Neb Soln) 2.5 mg QID CONT NEB Last administered on 09/25/18 08:31; Start 09/23/18 at 21:00 Amlodipine Besylate (Norvasc) 10 mg DAILY PO Last administered on 09/24/18 10: 45; Start 09/24/18 at 09:00 Levetiracetam (Keppra) 500 mg BID PO Last administered on 2/17/19at 10:45; Start 09/23/18 at 21:00; Stop 09/24/18 at 17:03; Status DC Lorazepam (Ativan) 0.5 mg PRN QID PRN PO ANXIETY / AGITATION; Start 09/23/18 at 20:00 Hydralazine HCl (Apresoline) 25 mg PRN TID PRN PO HYPERTENSION; Start 09/23/18 at 21:00 Famotidine (Pepcid) 20 mg BID PO Last administered on 09/24/18at 10:45; Start at 21:00 Thiamine Mononitrate (Vitamin B-1) 100 mg DAILY PO Last administered on at 10:45; Start 09/24/18 at 09:00 Ziprasidone (Geodon) 20 mg BID PO Last administered on 09/24/18 10:45; Start 09/23/18 at 21:00 Sodium Chloride 1,000 ml @ 1,000 mls/hr 1X ONCE IV Last administered on at 22:09; Start 09/23/18 at 21:00; Stop 09/23/18 at 21:59; Status DC Clonidine HCl (Catapres) 0.2 mg 1X ONCE PO Last administered on 09/23/18at 22: 02; Start 09/23/18 at 21:30; Stop 09/23/18 at 21:31; Status DC Info (FLU VACCINE SCREEN per RX) 0.5 each PRN DAILY PRN [facility] UNABLE TO RESPOND; Start 09/24/18 at 08:00; Status Cancel Influenza Virus Vaccine (Afluria Trivalent [id number] Syringe) 0.5 ml ONCE ONCE VAX IM ; Start 09/24/18 at 14:00; Stop 09/24/18 at 14:01; Status DC Levofloxacin (Levaquin) 500 mg DAILY16 PO Last administered on 09/24/18at 17:42 ; Start 09/24/18 at 17:00 Levetiracetam 500 mg/Dextrose 105 ml @ 420 mls/hr Q12HR IV Last administered on 09/24/18at 22:18; Start 09/24/18 at 21:00 Active Scripts Active Hydralazine Hcl 25 Mg Tablet 25 Mg PO PRN TID PRN 30 Days For SBP > 150mmHg take as needed 3 times per day Amlodipine Besylate 10 Mg Tablet 10 Mg PO DAILY 30 Days Keppra (Levetiracetam) 500 Mg Tablet 500 Mg PO BID 30 Days Geodon (Ziprasidone Hcl) 20 Mg Capsule 20 Mg PO BID 30 Days Vitamin B-1 (Thiamine Mononitrate) 100 Mg Tablet 100 Mg PO DAILY 30 Days Reported Ranitidine Hcl 150 Mg Capsule 1 Cap PO BID Ativan (Lorazepam) 0.5 Mg Tablet 0.5 Mg PO PRN PRN Proair Hfa Inhaler (Albuterol Sulfate) 8.5 Gm Hfa.aer.ad 2 Puff IH PRN Q4-6HRS Vitals/I & O Vital Sign - Last 24 Hours 09/24/18 09/24/18 09/24/18 09/24/18 10:45 11:00 11:49 15:00 Temp 99.5 100.3 99.5 100.3 Pulse 75 75 75 Resp 20 20 B/P (MAP) 156/81 174/86 (115) 176/85 (115) Pulse Ox 97 98 95 O2 Delivery Room Air Room Air Room Air 09/24/18 09/24/18 09/24/18 09/24/18 15:31 19:15 19:59 20:00 Temp 98.6 98.6 Pulse 71 Resp 16 B/P (MAP) 173/86 (115) Pulse Ox 96 97 O2 Delivery Room Air Room Air Room Air Room Air O2 Flow Rate 3.0 09/24/18 09/24/18 09/25/18 09/25/18 23:35 23:47 03:35 06:11 Temp 98.4 98.1 98.4 98.1 Pulse 74 65 64 59 Resp 16 16 B/P (MAP) 191/96 (127) 191/96 170/80 (110) 172/90 Pulse Ox 96 98 O2 Delivery Room Air Room Air 09/25/18 09/25/18 07:40 08:35 Temp 99.3 99.3 Pulse 63 Resp 18 B/P (MAP) 140/64 (89) Pulse Ox 97 93 O2 Delivery Room Air Nasal Cannula O2 Flow Rate 2.0 Intake and Output 09/24/18 09/24/18 09/25/18 15:00 23:00 07:00 Intake Total 50 ml 50 ml 0 ml Output Total 550 ml 1900 ml 800 ml Balance -500 ml -1850 ml -[address] head 09/23: CT HEAD INDICATION: Altered mental status COMPARISON: 07/26/2018 Exposure: One or more of the following individualized dose reduction techniques were utilized for this examination: 1. Automated exposure control 2. Adjustment of the mA and/or kV according to patient size 3. Use of iterative reconstruction technique TECHNIQUE: 5 mm contiguous axial images were obtained from the skull base to the vertex in both bone and soft tissue algorithm. FINDINGS: Mild bilateral periventricular white matter hypodensities likely chronic small vessel ischemic disease. Right frontal craniotomy changes with greater density identified in the supra sellar region likely aneurysmal clip artifact similar to prior exam. No evidence of acute intracranial hemorrhage. No extra-axial fluid collections. No mass effect or midline shift. Ventricular size is appropriate. Basal cisterns are patent. No fractures identified.Gonsalves-white differentiation is preserved.Globes and orbits are within normal limits. Paranasal sinuses and mastoid air cells are clear. IMPRESSION: No acute intracranial findings. EEG 07/17/18: This electroencephalogram with the patient in obtunded state is abnormal because of periodic lateralizing epileptiform discharges on the right hemisphere. This is often related to acute insult such as stroke. MADY OH MD Sep 25, 2018 09:12
[2018-09-25] MEDS: THIAMINE 100 MG TABLET. PO SCH (10:41)
[2018-09-25] MEDS: FAMOTIDINE 20 MG TABLET. PO SCH ×2 (10:41→22:01)
[2018-09-25] MEDS: ZIPRASIDONE 20 MG CAPSULE PO SCH ×2 (10:41→22:01)
[2018-09-25] MEDS: levETIRAcetam 500 MG TABLET PO SCH ×2 (10:42→22:02)
[2018-09-25] MEDS: amLODIPine BESYLATE 10 MG TABLET PO SCH (10:42)
--- NOTE | 2018-09-25 11:14 | NUR ---
SW following pt for anticipated dc needs. Chart reviewed and DW RN. Pt lives at home with elderly mother. RN to order PT/OT evaluation to assess needs. SW will continue to follow.
--- NOTE | 2018-09-25 11:19 | NUR ---
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 Pt to always be in contact precautions.
[2018-09-25 11:30] VITALS: BP 167/90
--- NOTE | 2018-09-25 11:46 | PDOC ---
PROGRESS NOTES Chief Complaint Chief Complaint Toxic encephalopathy, Cocaine - improved Metabolic encephalopathy Cocaine use/abuse likely Lactic acidosis Seizures Renal failure Hx of brain aneurysm - ?s/p clipping at [facility] DM HTN HLD Worked well with PT/OT Needs geriatric psych Sister is her nearest next of kin History of Present Illness History of Present Illness 62-year-old -[place] female not the best historian, minimal cooperatively on my encounter, hx of seizure. Apparently witnessed a seizure by staff, gets seizure every year. Does not follow with a neurologist and there is a mention of noncompliance in chart. Supposed to be on seizure medications but admits to forgetting some. Did receive versed and ativan hence was post ictal at the emergency room. Admitted henceforth with consult neurology. SHe looks tired and not touching breakfast, labs look okay. Claims history of diabetes type 1 insulin requiring. Unknown hemoglobin A1c. Mention of some reports of low sats initially at the emergency room needing nonrebreather. That has since resolved. BP has been poorly controlled. Feeling improved. Would like to discharge home Her sister relates she has long-standing medical problems and it was discovered she has bipolar disorder after d/w PAT team and she frequently is hospitalized at [facility], well known there as well as [facility] where she has had brain aneurysm clipping. Some confusion evident but stable clinically, seen by neuro this morning. She wishes to eat and is asking for a discharge. Her family has met with SW, amenable to home health with psych nursing which would be appropriate as she does have 24/7 family in the home in a multi-generational house. A/P: Toxic encephalopathy, Cocaine - improved Metabolic encephalopathy - with underlying h/o brain aneurysm and bipolar depression with psychosis - geodon and prn lorazepam Cocaine use/abuse likely - counseled Lactic acidosis - improved, was likely seizure provoked Seizures, provoked by cocaine with h/o aneurysm - keppra and thiamine, neuro f/ u in 4-6 weeks Renal failure - likely from vasomotor nephropathy Hx of brain aneurysm - ?s/p clipping at [facility] DM oral meds and insulin HTN - better controlled now HLD - LDL is 199, needs 80mg atorvastatin or 40mg rosuvastatin Needs to work with PT/OT Needs geriatric psych with her h/o seizures and sundowning in the future Sister is her nearest next of kin - d/w her need for skilled svcs on d/c Vitals Vitals Vital Signs Date Time Temp Pulse Resp B/P (MAP) Pulse Ox O2 Delivery O2 Flow Rate FiO2 09/25/18 10:42 63 140/64 09/25/18 08:35 93 Nasal Cannula 2.0 09/25/18 07:40 99.3 18 99.3 Physical Exam General: Alert, Cooperative, No acute distress Heart: Regular rate Lungs: Clear Abdomen: Normal bowel sounds, Soft, No tenderness, No hepatosplenomegaly, No masses Extremities: No clubbing, No cyanosis, No edema, Normal pulses, No tenderness/ swelling Skin: No rashes, No breakdown, No significant lesion Labs LABS Laboratory Tests Test 09/25/18 03:45 White Blood Count 4.2 x10^3/uL (4.0-11.0) Red Blood Count 4.81 x10^6/uL (3.50-5.40) Hemoglobin 12.2 g/dL (12.0-15.5) Hematocrit 38.2 % (36.0-47.0) Mean Corpuscular Volume 79 fL (79-100) Mean Corpuscular Hemoglobin 26 pg (25-35) Mean Corpuscular Hemoglobin Concent 32 g/dL (31-37) Red Cell Distribution Width 15.4 % (11.5-14.5) Platelet Count 106 x10^3/uL (140-400) Neutrophils (%) (Auto) 64 % (31-73) Lymphocytes (%) (Auto) 24 % (24-48) Monocytes (%) (Auto) 11 % (0-9) Eosinophils (%) (Auto) 1 % (0-3) Basophils (%) (Auto) 1 % (0-3) Neutrophils # (Auto) 2.7 x10^3uL (1.8-7.7) Lymphocytes # (Auto) 1.0 x10^3/uL (1.0-4.8) Monocytes # (Auto) 0.5 x10^3/uL (0.0-1.1) Eosinophils # (Auto) 0.0 x10^3/uL (0.0-0.7) Basophils # (Auto) 0.0 x10^3/uL (0.0-0.2) Ammonia < 10 mcmol/L (11-34) Vitamin B12 Level 291 pg/mL (247-911) Treponema pallidum Antibody Nonreactive (Nonreactive) Assessment and Plan Assessmemt and Plan Problems Medical Problems: (1) Accelerated hypertension Status: Acute (2) Breakthrough seizure Status: Acute (3) Post-ictal aphasia Status: Acute Comment Review of Relevant I have reviewed the following items remi (where applicable) has been applied. Labs Laboratory Tests Test 09/23/18 19:15 09/23/18 19:18 09/23/18 19:37 09/23/18 19:45 White Blood Count 5.8 x10^3/uL (4.0-11.0) Red Blood Count 4.85 x10^6/uL (3.50-5.40) Hemoglobin 12.3 g/dL (12.0-15.5) Hematocrit 39.5 % (36.0-47.0) Mean Corpuscular Volume 81 fL (79-100) Mean Corpuscular Hemoglobin 25 pg (25-35) Mean Corpuscular Hemoglobin Concent 31 g/dL (31-37) Red Cell Distribution Width 15.9 % (11.5-14.5) Platelet Count 145 x10^3/uL (140-400) Neutrophils (%) (Auto) 56 % (31-73) Lymphocytes (%) (Auto) 34 % (24-48) Monocytes (%) (Auto) 8 % (0-9) Eosinophils (%) (Auto) 1 % (0-3) Basophils (%) (Auto) 1 % (0-3) Neutrophils # (Auto) 3.3 x10^3uL (1.8-7.7) Lymphocytes # (Auto) 2.0 x10^3/uL (1.0-4.8) Monocytes # (Auto) 0.4 x10^3/uL (0.0-1.1) Eosinophils # (Auto) 0.0 x10^3/uL (0.0-0.7) Basophils # (Auto) 0.1 x10^3/uL (0.0-0.2) Sodium Level 143 mmol/L (136-145) Potassium Level 3.9 mmol/L (3.5-5.1) Chloride Level 106 mmol/L (98-107) Carbon Dioxide Level 18 mmol/L (21-32) Anion Gap 19 (6-14) Blood Urea Nitrogen 26 mg/dL (7-20) Creatinine 1.3 mg/dL (0.6-1.0) Estimated GFR (Cockcroft-Gault) 49.9 BUN/Creatinine Ratio 20 (6-20) Glucose Level 139 mg/dL (70-99) Lactic Acid Level 9.0 mmol/L (0.4-2.0) Calcium Level 9.1 mg/dL (8.5-10.1) Total Bilirubin 0.2 mg/dL (0.2-1.0) Aspartate Amino Transf (AST/SGOT) 13 U/L (15-37) Alanine Aminotransferase (ALT/SGPT) 14 U/L (14-59) Alkaline Phosphatase 95 U/L (46-116) Total Protein 7.7 g/dL (6.4-8.2) Albumin 3.3 g/dL (3.4-5.0) Albumin/Globulin Ratio 0.8 (1.0-1.7) Ethyl Alcohol Level < 10 mg/dL (0-10) O2 Saturation 98 % (92-99) Arterial Blood pH 7.16 (7.35-7.45) Arterial Blood pCO2 at Patient Temp 49 mmHg (35-46) Arterial Blood pO2 at Patient Temp 136 mmHg (65-108) Arterial Blood HCO3 17 mmol/L (21-28) Arterial Blood Base Excess -11 mmol/L (-3-3) FiO2 100 Influenza Type A Antigen Negative (NEGATIVE) Influenza Type B Antigen Negative (NEGATIVE) Urine Collection Type Unknown Urine Color Yellow Urine Clarity Clear Urine pH 6.5 Urine Specific [place] 1.020 Urine Protein 100 mg/dL (NEG-TRACE) Urine Glucose (UA) Negative mg/dL (NEG) Urine Ketones (Stick) Negative mg/dL (NEG) Urine Blood Negative (NEG) Urine Nitrite Negative (NEG) Urine Bilirubin Negative (NEG) Urine Urobilinogen Dipstick 0.2 mg/dL (0.2 mg/dL) Urine Leukocyte Esterase Negative (NEG) Urine RBC 6-10 /HPF (0-2) Urine WBC 1-4 /HPF (0-4) Urine Bacteria 0 /HPF (0-FEW) Urine Hyaline Casts Moderate /HPF Urine Granular Casts Occasional /HPF Urine Mucus Slight /LPF Urine Opiates Screen Neg (NEG) Urine Methadone Screen Neg (NEG) Urine Barbiturates Neg (NEG) Urine Phencyclidine Screen Neg (NEG) Urine Amphetamine/Methamphetamine Neg (NEG) Urine Benzodiazepines Screen Pos (NEG) Urine Cocaine Screen Neg (NEG) Urine Cannabinoids Screen Neg (NEG) Urine Ethyl Alcohol Neg (NEG) Test 09/23/18 19:52 09/23/18 23:00 09/25/18 03:45 Glucose (Fingerstick) 113 mg/dL (70-99) Lactic Acid Level 0.8 mmol/L (0.4-2.0) White Blood Count 4.2 x10^3/uL (4.0-11.0) Red Blood Count 4.81 x10^6/uL (3.50-5.40) Hemoglobin 12.2 g/dL (12.0-15.5) Hematocrit 38.2 % (36.0-47.0) Mean Corpuscular Volume 79 fL (79-100) Mean Corpuscular Hemoglobin 26 pg (25-35) Mean Corpuscular Hemoglobin Concent 32 g/dL (31-37) Red Cell Distribution Width 15.4 % (11.5-14.5) Platelet Count 106 x10^3/uL (140-400) Neutrophils (%) (Auto) 64 % (31-73) Lymphocytes (%) (Auto) 24 % (24-48) Monocytes (%) (Auto) 11 % (0-9) Eosinophils (%) (Auto) 1 % (0-3) Basophils (%) (Auto) 1 % (0-3) Neutrophils # (Auto) 2.7 x10^3uL (1.8-7.7) Lymphocytes # (Auto) 1.0 x10^3/uL (1.0-4.8) Monocytes # (Auto) 0.5 x10^3/uL (0.0-1.1) Eosinophils # (Auto) 0.0 x10^3/uL (0.0-0.7) Basophils # (Auto) 0.0 x10^3/uL (0.0-0.2) Ammonia < 10 mcmol/L (11-34) Vitamin B12 Level 291 pg/mL (247-911) Treponema pallidum Antibody Nonreactive (Nonreactive) Laboratory Tests Test 09/25/18 03:45 White Blood Count 4.2 x10^3/uL (4.0-11.0) Red Blood Count 4.81 x10^6/uL (3.50-5.40) Hemoglobin 12.2 g/dL (12.0-15.5) Hematocrit 38.2 % (36.0-47.0) Mean Corpuscular Volume 79 fL (79-100) Mean Corpuscular Hemoglobin 26 pg (25-35) Mean Corpuscular Hemoglobin Concent 32 g/dL (31-37) Red Cell Distribution Width 15.4 % (11.5-14.5) Platelet Count 106 x10^3/uL (140-400) Neutrophils (%) (Auto) 64 % (31-73) Lymphocytes (%) (Auto) 24 % (24-48) Monocytes (%) (Auto) 11 % (0-9) Eosinophils (%) (Auto) 1 % (0-3) Basophils (%) (Auto) 1 % (0-3) Neutrophils # (Auto) 2.7 x10^3uL (1.8-7.7) Lymphocytes # (Auto) 1.0 x10^3/uL (1.0-4.8) Monocytes # (Auto) 0.5 x10^3/uL (0.0-1.1) Eosinophils # (Auto) 0.0 x10^3/uL (0.0-0.7) Basophils # (Auto) 0.0 x10^3/uL (0.0-0.2) Ammonia < 10 mcmol/L (11-34) Vitamin B12 Level 291 pg/mL (247-911) Treponema pallidum Antibody Nonreactive (Nonreactive) Medications Current Medications Sodium Chloride 1,000 ml @ 1,000 mls/hr 1X ONCE IV Last administered on at 19:26; Start 09/23/18 at 19:30; Stop 09/23/18 at 20:29; Status DC Naloxone HCl (Narcan) 4 mg 1X ONCE IV Last administered on 09/23/18at 19:20; Start 09/23/18 at 19:30; Stop 09/23/18 at 19:31; Status DC Levetiracetam 1000 mg/Dextrose 110 ml @ 440 mls/hr 1X ONCE IV Last administered on 09/23/18at 20:23; Start 09/23/18 at 19:30; Stop 09/23/18 at 19:44 ; Status DC Sodium Chloride 1,000 ml @ 100 mls/hr Q10H IV Last administered on 09/25/18at 06:02; Start 09/23/18 at 20:00 Lorazepam (Ativan) 2 mg PRN Q4HRS PRN IV seizures; Start 09/23/18 at 20:00 Calcium Carbonate/ Glycine (Tums) 500 mg PRN AFTMEALHC PRN PO INDIGESTION; Start 09/23/18 at 20:00 Acetaminophen (Tylenol) 500 mg PRN Q6HRS PRN PO MILD PAIN / TEMP Last administered on 09/24/18at 10:45; Start 09/23/18 at 20:00 Ondansetron HCl (Zofran) 4 mg PRN Q6HRS PRN IV NAUSEA/VOMITING; Start 09/23/18 at 20:00 Ondansetron HCl (Zofran Odt) 4 mg PRN Q6HRS PRN PO NAUSEA/VOMITING; Start 09/23 at 20:00 Labetalol HCl (Normodyne Iv Push) 10 mg PRN Q2HR PRN IVP HYPERTENSION, SEE COMMENTS Last administered on 09/25/18at 06:11; Start 09/23/18 at 20:00 Albuterol Sulfate (Ventolin Neb Soln) 2.5 mg QID CONT NEB Last administered on 09/25/18at 08:31; Start 09/23/18 at 21:00 Amlodipine Besylate (Norvasc) 10 mg DAILY PO Last administered on 09/25/18at 10: 42; Start 09/24/18 at 09:00 Levetiracetam (Keppra) 500 mg BID PO Last administered on 09/24/18at 10:45; Start 09/23/18 at 21:00; Stop 09/24/18 at 17:03; Status DC Lorazepam (Ativan) 0.5 mg PRN QID PRN PO ANXIETY / AGITATION; Start 09/23/18 at 20:00 Hydralazine HCl (Apresoline) 25 mg PRN TID PRN PO HYPERTENSION; Start 09/23/18 at 21:00 Famotidine (Pepcid) 20 mg BID PO Last administered on 09/25/18at 10:41; Start at 21:00 Thiamine Mononitrate (Vitamin B-1) 100 mg DAILY PO Last administered on at 10:41; Start 09/24/18 at 09:00 Ziprasidone (Geodon) 20 mg BID PO Last administered on 09/25/18at 10:41; Start 09/23/18 at 21:00 Sodium Chloride 1,000 ml @ 1,000 mls/hr 1X ONCE IV Last administered on at 22:09; Start 09/23/18 at 21:00; Stop 09/23/18 at 21:59; Status DC Clonidine HCl (Catapres) 0.2 mg 1X ONCE PO Last administered on 09/23/18at 22: 02; Start 09/23/18 at 21:30; Stop 09/23/18 at 21:31; Status DC Info (FLU VACCINE SCREEN per RX) 0.5 each PRN DAILY PRN [facility] UNABLE TO RESPOND; Start 09/24/18 at 08:00; Status Cancel Influenza Virus Vaccine (Afluria Trivalent [id number] Syringe) 0.5 ml ONCE ONCE VAX IM ; Start 09/24/18 at 14:00; Stop 09/24/18 at 14:01; Status DC Levofloxacin (Levaquin) 500 mg DAILY16 PO Last administered on 09/24/18at 17:42 ; Start 09/24/18 at 17:00 Levetiracetam 500 mg/Dextrose 105 ml @ 420 mls/hr Q12HR IV Last administered on 09/24/18at 22:18; Start 09/24/18 at 21:00; Stop 09/25/18 at 09:08; Status DC Levetiracetam (Keppra) 500 mg BID PO Last administered on 09/25/18at 10:42; Start 09/25/18 at 10:00 Lactobacillus Rhamnosus (Culturelle) 1 cap BID PO ; Start 09/25/18 at 12:00 Active Scripts Active Hydralazine Hcl 25 Mg Tablet 25 Mg PO PRN TID PRN 30 Days For SBP > 150mmHg take as needed 3 times per day Amlodipine Besylate 10 Mg Tablet 10 Mg PO DAILY 30 Days Keppra (Levetiracetam) 500 Mg Tablet 500 Mg PO BID 30 Days Geodon (Ziprasidone Hcl) 20 Mg Capsule 20 Mg PO BID 30 Days Vitamin B-1 (Thiamine Mononitrate) 100 Mg Tablet 100 Mg PO DAILY 30 Days Reported Ranitidine Hcl 150 Mg Capsule 1 Cap PO BID Ativan (Lorazepam) 0.5 Mg Tablet 0.5 Mg PO PRN PRN Proair Hfa Inhaler (Albuterol Sulfate) 8.5 Gm Hfa.aer.ad 2 Puff IH PRN Q4-6HRS Vitals/I & O Vital Sign - Last 24 Hours 09/24/18 09/24/18 09/24/18 09/24/18 11:49 15:00 15:31 19:15 Temp 100.3 98.6 100.3 98.6 Pulse 75 71 Resp 20 16 B/P (MAP) 176/85 (115) 173/86 (115) Pulse Ox 98 95 96 97 O2 Delivery Room Air Room Air Room Air Room Air 09/24/18 09/24/18 09/24/18 09/24/18 19:59 20:00 23:35 23:47 Temp 98.4 98.4 Pulse 74 65 Resp 16 B/P (MAP) 191/96 (127) 191/96 Pulse Ox 96 O2 Delivery Room Air Room Air Room Air O2 Flow Rate 3.0 09/25/18 09/25/18 09/25/18 09/25/18 03:35 06:11 07:40 08:35 Temp 98.1 99.3 98.1 99.3 Pulse 64 59 63 Resp 16 18 B/P (MAP) 170/80 (110) 172/90 140/64 (89) Pulse Ox 98 97 93 O2 Delivery Room Air Room Air Nasal Cannula O2 Flow Rate 2.0 09/25/18 10:42 Pulse 63 B/P (MAP) 140/64 Intake and Output 09/24/18 09/24/18 09/25/18 15:00 23:00 07:00 Intake Total 50 ml 50 ml 0 ml Output Total 550 ml 1900 ml 800 ml Balance -500 ml -1850 ml -800 ml ADRIENNE BEAL MD Sep 25, 2018 11:46
[2018-09-25] MEDS: LACTOBACILLUS RHAMNOSUS GG 1 CAPSULE. PO SCH ×2 (12:17→22:01)
[2018-09-25 15:04] VITALS: BP 170/68
--- NOTE | 2018-09-25 16:15 | NUR ---
SW following. PT/OT recommends SNU. Spoke with pt at bedside and pt declined SNU and reported she will go home with home health. Pt agreeable with Jose [facility]. NICOL will arrange HH upon dc. SAVANAH LALA.
--- NOTE | 2018-09-25 17:16 | NUR ---
pt has been sleeping for most of the day. when we have woke her up for her meds or for PT/OT, after she will promptly fall back to sleep. BP has been high today, pt has not had appetite to eat wither. Satya Leon RN
[2018-09-25 19:10] VITALS: BP 136/81
[2018-09-25] MEDS: ACETAMINOPHEN 500 MG TABLET PO PRN (22:01)
[2018-09-25] MEDS: LORazepam 0.5 MG TABLET PO PRN (22:47)
[2018-09-25 23:38] VITALS: BP 149/94
[2018-09-26 02:58] VITALS: BP 125/80
--- NOTE | 2018-09-26 05:50 | NUR ---
Pt's pantoja catheter removed at this time, pt tolerated well, and voiding trial to start at this time.
[2018-09-26 07:25] VITALS: BP 161/87
[2018-09-26] MEDS: ALBUTEROL SULFATE 2.5 MG/3 ML NEBU. CONT NEB SCH (08:10)
[2018-09-26] MEDS: FAMOTIDINE 20 MG TABLET. PO SCH (08:35)
[2018-09-26] MEDS: ZIPRASIDONE 20 MG CAPSULE PO SCH (08:35)
[2018-09-26] MEDS: LACTOBACILLUS RHAMNOSUS GG 1 CAPSULE. PO SCH (08:36)
[2018-09-26] MEDS: amLODIPine BESYLATE 10 MG TABLET PO SCH (08:36)
[2018-09-26] MEDS: levETIRAcetam 500 MG TABLET PO SCH (08:36)
[2018-09-26] MEDS: ACETAMINOPHEN 500 MG TABLET PO PRN (08:36)
[2018-09-26] MEDS: THIAMINE 100 MG TABLET. PO SCH (08:36)
[2018-09-26] MEDS: IV NORMAL SALINE 1000ML BAG 1,000 ML IV SCH (08:43)
--- NOTE | 2018-09-26 09:04 | PDOC ---
PROGRESS NOTES Assessment Problems Medical Problems: (1) Accelerated hypertension Status: Acute (2) Breakthrough seizure Status: Acute (3) Post-ictal aphasia Status: Acute Epilepsy, gen convulsive, seizure. History of medication noncompliance, she denies Probably cannot undergo an MRI, history of aneurysm clipping Plan Switch to oral levetiracetam Monitor Patient wants to go home. I left a message with her daughter. Discharge is fine with me as long as she has some help at home. Patient says that she follows with [facility] neurology, she should follow-up with them , but if such is not the case, she can follow-up with me in 4-6 weeks. Subjective Patient has been agitated, she wants to leave Objective Vital Signs Date Time Temp Pulse Resp B/P (MAP) Pulse Ox O2 Delivery O2 Flow Rate FiO2 09/26/18 08:36 64 161/87 09/26/18 08:10 98 Room Air 09/26/18 07:25 98.9 16 98.9 09/25/18 23:38 2.0 Intake and Output 09/26/18 07:00 Intake Total 900 ml Output Total 3000 ml Balance -2100 ml Intake Oral 900 ml Output Urine Total 3000 ml PHYSICAL EXAM Alert. Oriented to place and person, not time. PERRL. EOMI. CN: no focal findings. Muscle tone: normal. Muscle strength: 4/5 DTR: 2+ Plantar reflex: flexor Gait: not examined in bed. Sensory exam: no abnormal findings. No cerebellar signs elicited. Review of Relevant I have reviewed the following items remi (where applicable) has been applied. Labs Laboratory Tests Test 09/25/18 03:45 White Blood Count 4.2 x10^3/uL (4.0-11.0) Red Blood Count 4.81 x10^6/uL (3.50-5.40) Hemoglobin 12.2 g/dL (12.0-15.5) Hematocrit 38.2 % (36.0-47.0) Mean Corpuscular Volume 79 fL (79-100) Mean Corpuscular Hemoglobin 26 pg (25-35) Mean Corpuscular Hemoglobin Concent 32 g/dL (31-37) Red Cell Distribution Width 15.4 % (11.5-14.5) Platelet Count 106 x10^3/uL (140-400) Neutrophils (%) (Auto) 64 % (31-73) Lymphocytes (%) (Auto) 24 % (24-48) Monocytes (%) (Auto) 11 % (0-9) Eosinophils (%) (Auto) 1 % (0-3) Basophils (%) (Auto) 1 % (0-3) Neutrophils # (Auto) 2.7 x10^3uL (1.8-7.7) Lymphocytes # (Auto) 1.0 x10^3/uL (1.0-4.8) Monocytes # (Auto) 0.5 x10^3/uL (0.0-1.1) Eosinophils # (Auto) 0.0 x10^3/uL (0.0-0.7) Basophils # (Auto) 0.0 x10^3/uL (0.0-0.2) Ammonia < 10 mcmol/L (11-34) Vitamin B12 Level 291 pg/mL (247-911) Treponema pallidum Antibody Nonreactive (Nonreactive) Medications Current Medications Sodium Chloride 1,000 ml @ 1,000 mls/hr 1X ONCE IV Last administered on at 19:26; Start 09/23/18 at 19:30; Stop 09/23/18 at 20:29; Status DC Naloxone HCl (Narcan) 4 mg 1X ONCE IV Last administered on 09/23/18at 19:20; Start 09/23/18 at 19:30; Stop 09/23/18 at 19:31; Status DC Levetiracetam 1000 mg/Dextrose 110 ml @ 440 mls/hr 1X ONCE IV Last administered on 09/23/18at 20:23; Start 09/23/18 at 19:30; Stop 09/23/18 at 19:44 ; Status DC Sodium Chloride 1,000 ml @ 100 mls/hr Q10H IV Last administered on 09/26/18at 08:43; Start 09/23/18 at 20:00 Lorazepam (Ativan) 2 mg PRN Q4HRS PRN IV seizures; Start 09/23/18 at 20:00 Calcium Carbonate/ Glycine (Tums) 500 mg PRN AFTMEALHC PRN PO INDIGESTION; Start 09/23/18 at 20:00 Acetaminophen (Tylenol) 500 mg PRN Q6HRS PRN PO MILD PAIN / TEMP Last administered on 09/26/18 08:36; Start 09/23/18 at 20:00 Ondansetron HCl (Zofran) 4 mg PRN Q6HRS PRN IV NAUSEA/VOMITING; Start 09/23/18 at 20:00 Ondansetron HCl (Zofran Odt) 4 mg PRN Q6HRS PRN PO NAUSEA/VOMITING; Start 09/23 at 20:00 Labetalol HCl (Normodyne Iv Push) 10 mg PRN Q2HR PRN IVP HYPERTENSION, SEE COMMENTS Last administered on 09/25/18 06:11; Start 09/23/18 at 20:00 Albuterol Sulfate (Ventolin Neb Soln) 2.5 mg QID CONT NEB Last administered on 09/26/18 08:10; Start 09/23/18 at 21:00 Amlodipine Besylate (Norvasc) 10 mg DAILY PO Last administered on 09/26/18 08: 36; Start 09/24/18 at 09:00 Levetiracetam (Keppra) 500 mg BID PO Last administered on 09/24/18 10:45; Start 09/23/18 at 21:00; Stop 09/24/18 at 17:03; Status DC Lorazepam (Ativan) 0.5 mg PRN QID PRN PO ANXIETY / AGITATION Last administered on 09/25/18 22:47; Start 09/23/18 at 20:00 Hydralazine HCl (Apresoline) 25 mg PRN TID PRN PO HYPERTENSION Last administered on 09/25/18 12:18; Start 09/23/18 at 21:00 Famotidine (Pepcid) 20 mg BID PO Last administered on 09/26/18 08:35; Start at 21:00 Thiamine Mononitrate (Vitamin B-1) 100 mg DAILY PO Last administered on 08:36; Start 09/24/18 at 09:00 Ziprasidone (Geodon) 20 mg BID PO Last administered on 09/26/18 08:35; Start 09/23/18 at 21:00 Sodium Chloride 1,000 ml @ 1,000 mls/hr 1X ONCE IV Last administered on 22:09; Start 09/23/18 at 21:00; Stop 09/23/18 at 21:59; Status DC Clonidine HCl (Catapres) 0.2 mg 1X ONCE PO Last administered on 09/23/18at 22: 02; Start 09/23/18 at 21:30; Stop 09/23/18 at 21:31; Status DC Info (FLU VACCINE SCREEN per RX) 0.5 each PRN DAILY PRN [facility] UNABLE TO RESPOND; Start 09/24/18 at 08:00; Status Cancel Influenza Virus Vaccine (Afluria Trivalent [id number] Syringe) 0.5 ml ONCE ONCE VAX IM ; Start 09/24/18 at 14:00; Stop 09/24/18 at 14:01; Status DC Levofloxacin (Levaquin) 500 mg DAILY16 PO Last administered on 09/25/18at 17:13 ; Start 09/24/18 at 17:00 Levetiracetam 500 mg/Dextrose 105 ml @ 420 mls/hr Q12HR IV Last administered on 09/24/18at 22:18; Start 09/24/18 at 21:00; Stop 09/25/18 at 09:08; Status DC Levetiracetam (Keppra) 500 mg BID PO Last administered on 09/26/18at 08:36; Start 09/25/18 at 10:00 Lactobacillus Rhamnosus (Culturelle) 1 cap BID PO Last administered on at 08:36; Start 09/25/18 at 12:00 Triamterene/HCTZ (Maxzide 37.5/ 25mg) 1 tab DAILY PO ; Start 09/26/18 at 09:00; Status UNV Active Scripts Active Hydralazine Hcl 25 Mg Tablet 25 Mg PO PRN TID PRN 30 Days For SBP > 150mmHg take as needed 3 times per day Amlodipine Besylate 10 Mg Tablet 10 Mg PO DAILY 30 Days Keppra (Levetiracetam) 500 Mg Tablet 500 Mg PO BID 30 Days Geodon (Ziprasidone Hcl) 20 Mg Capsule 20 Mg PO BID 30 Days Vitamin B-1 (Thiamine Mononitrate) 100 Mg Tablet 100 Mg PO DAILY 30 Days Reported Ranitidine Hcl 150 Mg Capsule 1 Cap PO BID Ativan (Lorazepam) 0.5 Mg Tablet 0.5 Mg PO PRN PRN Proair Hfa Inhaler (Albuterol Sulfate) 8.5 Gm Hfa.aer.ad 2 Puff IH PRN Q4-6HRS Vitals/I & O Vital Sign - Last 24 Hours 09/25/18 09/25/18 09/25/18 09/25/18 10:42 11:30 12:18 12:35 Temp 98.7 98.7 Pulse 63 57 57 Resp 18 B/P (MAP) 140/64 167/90 (115) 167/90 Pulse Ox 96 93 O2 Delivery Room Air Nasal Cannula O2 Flow Rate 2.0 09/25/18 09/25/18 09/25/18 09/25/18 15:04 16:21 19:10 20:13 Temp 99.1 98.8 99.1 98.8 Pulse 64 74 Resp 18 16 B/P (MAP) 170/68 (102) 136/81 (99) Pulse Ox 98 98 95 O2 Delivery Room Air Room Air Room Air Room Air 09/25/18 09/25/18 09/26/18 09/26/18 20:30 23:38 02:58 07:25 Temp 98.2 98.9 98.2 98.9 Pulse 77 68 64 Resp 16 16 B/P (MAP) 149/94 (112) 125/80 (95) 161/87 (111) Pulse Ox 100 97 93 O2 Delivery Nasal Cannula Nasal Cannula Room Air Room Air O2 Flow Rate 2.0 2.0 09/26/18 09/26/18 08:10 08:36 Pulse 64 B/P (MAP) 161/87 Pulse Ox 98 O2 Delivery Room Air Intake and Output 09/25/18 09/25/18 09/26/18 15:00 23:00 07:00 Intake Total 200 ml 300 ml 400 ml Output Total 2050 ml 950 ml Balance 200 ml -1750 ml -550 ml MADY OH MD Sep 26, 2018 09:04
[2018-09-26] MEDS ORDERED: LEVO500T59 PO (09:08)
[2018-09-26] MEDS ORDERED: TRIA1TAB3 PO (09:08)
[2018-09-26] MEDS ORDERED: CYAN10005 PO (09:08)
--- NOTE | 2018-09-26 09:11 | PDOC ---
PROGRESS NOTES Chief Complaint Chief Complaint Toxic encephalopathy, Cocaine - improved Metabolic encephalopathy Cocaine use/abuse likely Lactic acidosis Seizures Renal failure Hx of brain aneurysm - ?s/p clipping at [facility] DM HTN HLD Worked well with PT/OT Needs geriatric psych Sister is her nearest next of kin History of Present Illness History of Present Illness 62-year-old -[place] female not the best historian, minimal cooperatively on my encounter, hx of seizure. Apparently witnessed a seizure by staff, gets seizures rarely, but a few times per year. Does not follow with a neurologist and there is a mention of noncompliance in chart. Supposed to be on seizure medications but admits to forgetting some. Did receive versed and ativan , was post ictal at the emergency room. Admitted with consult neurology, lactate 9 consistent with seizure. Mention of some reports of low sats initially at the emergency room needing nonrebreather. That has since resolved. BP has been high despite amlodipine and hydralazine added. HR low and h/o cocaine use, no BB added. Feeling improved. Would like to discharge home despite recs from PT/OT for SNF on d/c. A/P: Seizures, provoked by cocaine with h/o aneurysm - keppra and thiamine, neuro f/ u in 4-6 weeks Bibasilar infiltrates - treating for HCAP with levaquin Toxic encephalopathy, Cocaine - improved Metabolic encephalopathy - with underlying h/o brain aneurysm and bipolar depression with psychosis - geodon and prn lorazepam Cocaine use/abuse likely - counseled Lactic acidosis - improved, was likely seizure provoked Renal failure - likely from vasomotor nephropathy Hx of brain aneurysm - ?s/p clipping at [facility] DM oral meds and insulin HTN - better controlled now HLD - LDL is 199, needs 80mg atorvastatin or 40mg rosuvastatin Needs to work with PT/OT - only wants home health Needs geriatric psych with her h/o seizures and sundowning in the future Sister is her nearest next of kin - d/w her need for skilled svcs on d/c Vitals Vitals Vital Signs Date Time Temp Pulse Resp B/P (MAP) Pulse Ox O2 Delivery O2 Flow Rate FiO2 09/26/18 08:36 64 161/87 09/26/18 08:10 98 Room Air 09/26/18 07:25 98.9 16 98.9 09/25/18 23:38 2.0 Physical Exam General: Alert, Cooperative, No acute distress Heart: Regular rate Lungs: Clear Abdomen: Normal bowel sounds, Soft, No tenderness, No hepatosplenomegaly, No masses Extremities: No clubbing, No cyanosis, No edema, Normal pulses, No tenderness/ swelling Skin: No rashes, No breakdown, No significant lesion Review of Systems Review of Systems Her sister relates she has long-standing medical problems and it was discovered she has bipolar disorder after d/w PAT team and she frequently is hospitalized at [facility], well known there as well as [facility] where she has had brain aneurysm clipping. Some confusion evident but stable clinically, seen by neuro this morning. She wishes to eat and is asking for a discharge. Her family has met with [facility], amenable to home health with psych nursing which would be appropriate as she does have 24/7 family in the home in a multi-generational house. Assessment and Plan Assessmemt and Plan Problems Medical Problems: (1) Accelerated hypertension Status: Acute (2) Breakthrough seizure Status: Acute (3) Post-ictal aphasia Status: Acute Comment Review of Relevant I have reviewed the following items remi (where applicable) has been applied. Labs Laboratory Tests Test 09/25/18 03:45 White Blood Count 4.2 x10^3/uL (4.0-11.0) Red Blood Count 4.81 x10^6/uL (3.50-5.40) Hemoglobin 12.2 g/dL (12.0-15.5) Hematocrit 38.2 % (36.0-47.0) Mean Corpuscular Volume 79 fL (79-100) Mean Corpuscular Hemoglobin 26 pg (25-35) Mean Corpuscular Hemoglobin Concent 32 g/dL (31-37) Red Cell Distribution Width 15.4 % (11.5-14.5) Platelet Count 106 x10^3/uL (140-400) Neutrophils (%) (Auto) 64 % (31-73) Lymphocytes (%) (Auto) 24 % (24-48) Monocytes (%) (Auto) 11 % (0-9) Eosinophils (%) (Auto) 1 % (0-3) Basophils (%) (Auto) 1 % (0-3) Neutrophils # (Auto) 2.7 x10^3uL (1.8-7.7) Lymphocytes # (Auto) 1.0 x10^3/uL (1.0-4.8) Monocytes # (Auto) 0.5 x10^3/uL (0.0-1.1) Eosinophils # (Auto) 0.0 x10^3/uL (0.0-0.7) Basophils # (Auto) 0.0 x10^3/uL (0.0-0.2) Ammonia < 10 mcmol/L (11-34) Vitamin B12 Level 291 pg/mL (247-911) Treponema pallidum Antibody Nonreactive (Nonreactive) Medications Current Medications Sodium Chloride 1,000 ml @ 1,000 mls/hr 1X ONCE IV Last administered on at 19:26; Start 09/23/18 at 19:30; Stop 09/23/18 at 20:29; Status DC Naloxone HCl (Narcan) 4 mg 1X ONCE IV Last administered on 09/23/18at 19:20; Start 09/23/18 at 19:30; Stop 09/23/18 at 19:31; Status DC Levetiracetam 1000 mg/Dextrose 110 ml @ 440 mls/hr 1X ONCE IV Last administered on 09/23/18at 20:23; Start 09/23/18 at 19:30; Stop 09/23/18 at 19:44 ; Status DC Sodium Chloride 1,000 ml @ 100 mls/hr Q10H IV Last administered on 09/26/18at 08:43; Start 09/23/18 at 20:00 Lorazepam (Ativan) 2 mg PRN Q4HRS PRN IV seizures; Start 09/23/18 at 20:00 Calcium Carbonate/ Glycine (Tums) 500 mg PRN AFTMEALHC PRN PO INDIGESTION; Start 09/23/18 at 20:00 Acetaminophen (Tylenol) 500 mg PRN Q6HRS PRN PO MILD PAIN / TEMP Last administered on 09/26/18at 08:36; Start 09/23/18 at 20:00 Ondansetron HCl (Zofran) 4 mg PRN Q6HRS PRN IV NAUSEA/VOMITING; Start 09/23/18 at 20:00 Ondansetron HCl (Zofran Odt) 4 mg PRN Q6HRS PRN PO NAUSEA/VOMITING; Start 09/23 at 20:00 Labetalol HCl (Normodyne Iv Push) 10 mg PRN Q2HR PRN IVP HYPERTENSION, SEE COMMENTS Last administered on 09/25/18 06:11; Start 09/23/18 at 20:00 Albuterol Sulfate (Ventolin Neb Soln) 2.5 mg QID CONT NEB Last administered on 09/26/18 08:10; Start 09/23/18 at 21:00 Amlodipine Besylate (Norvasc) 10 mg DAILY PO Last administered on 09/26/18 08: 36; Start 09/24/18 at 09:00 Levetiracetam (Keppra) 500 mg BID PO Last administered on 09/24/18 10:45; Start 09/23/18 at 21:00; Stop 09/24/18 at 17:03; Status DC Lorazepam (Ativan) 0.5 mg PRN QID PRN PO ANXIETY / AGITATION Last administered on 09/25/18 22:47; Start 09/23/18 at 20:00 Hydralazine HCl (Apresoline) 25 mg PRN TID PRN PO HYPERTENSION Last administered on 09/25/18 12:18; Start 09/23/18 at 21:00 Famotidine (Pepcid) 20 mg BID PO Last administered on 09/26/18 08:35; Start at 21:00 Thiamine Mononitrate (Vitamin B-1) 100 mg DAILY PO Last administered on 08:36; Start 09/24/18 at 09:00 Ziprasidone (Geodon) 20 mg BID PO Last administered on 09/26/18 08:35; Start 09/23/18 at 21:00 Sodium Chloride 1,000 ml @ 1,000 mls/hr 1X ONCE IV Last administered on 22:09; Start 09/23/18 at 21:00; Stop 09/23/18 at 21:59; Status DC Clonidine HCl (Catapres) 0.2 mg 1X ONCE PO Last administered on 09/23/18 22: 02; Start 09/23/18 at 21:30; Stop 09/23/18 at 21:31; Status DC Info (FLU VACCINE SCREEN per RX) 0.5 each PRN DAILY PRN [facility] UNABLE TO RESPOND; Start 09/24/18 at 08:00; Status Cancel Influenza Virus Vaccine (Afluria Trivalent [id number] Syringe) 0.5 ml ONCE ONCE VAX IM ; Start 09/24/18 at 14:00; Stop 09/24/18 at 14:01; Status DC Levofloxacin (Levaquin) 500 mg DAILY16 PO Last administered on 09/25/18at 17:13 ; Start 09/24/18 at 17:00 Levetiracetam 500 mg/Dextrose 105 ml @ 420 mls/hr Q12HR IV Last administered on 09/24/18at 22:18; Start 09/24/18 at 21:00; Stop 09/25/18 at 09:08; Status DC Levetiracetam (Keppra) 500 mg BID PO Last administered on 09/26/18at 08:36; Start 09/25/18 at 10:00 Lactobacillus Rhamnosus (Culturelle) 1 cap BID PO Last administered on at 08:36; Start 09/25/18 at 12:00 Active Scripts Active Hydralazine Hcl 25 Mg Tablet 25 Mg PO PRN TID PRN 30 Days For SBP > 150mmHg take as needed 3 times per day Amlodipine Besylate 10 Mg Tablet 10 Mg PO DAILY 30 Days Keppra (Levetiracetam) 500 Mg Tablet 500 Mg PO BID 30 Days Geodon (Ziprasidone Hcl) 20 Mg Capsule 20 Mg PO BID 30 Days Vitamin B-1 (Thiamine Mononitrate) 100 Mg Tablet 100 Mg PO DAILY 30 Days Reported Ranitidine Hcl 150 Mg Capsule 1 Cap PO BID Ativan (Lorazepam) 0.5 Mg Tablet 0.5 Mg PO PRN PRN Proair Hfa Inhaler (Albuterol Sulfate) 8.5 Gm Hfa.aer.ad 2 Puff IH PRN Q4-6HRS Vitals/I & O Vital Sign - Last 24 Hours 09/25/18 09/25/18 09/25/18 09/25/18 10:42 11:30 12:18 12:35 Temp 98.7 98.7 Pulse 63 57 57 Resp 18 B/P (MAP) 140/64 167/90 (115) 167/90 Pulse Ox 96 93 O2 Delivery Room Air Nasal Cannula O2 Flow Rate 2.0 09/25/18 09/25/18 09/25/18 09/25/18 15:04 16:21 19:10 20:13 Temp 99.1 98.8 99.1 98.8 Pulse 64 74 Resp 18 16 B/P (MAP) 170/68 (102) 136/81 (99) Pulse Ox 98 98 95 O2 Delivery Room Air Room Air Room Air Room Air 09/25/18 09/25/18 09/26/18 09/26/18 20:30 23:38 02:58 07:25 Temp 98.2 98.9 98.2 98.9 Pulse 77 68 64 Resp 16 16 B/P (MAP) 149/94 (112) 125/80 (95) 161/87 (111) Pulse Ox 100 97 93 O2 Delivery Nasal Cannula Nasal Cannula Room Air Room Air O2 Flow Rate 2.0 2.0 09/26/18 09/26/18 08:10 08:36 Pulse 64 B/P (MAP) 161/87 Pulse Ox 98 O2 Delivery Room Air Intake and Output 09/25/18 09/25/18 09/26/18 15:00 23:00 07:00 Intake Total 200 ml 300 ml 400 ml Output Total 2050 ml 950 ml Balance 200 ml -1750 ml -550 ml ADRIENNE BEAL MD Sep 26, 2018 09:11
--- NOTE | 2018-09-26 09:15 | PDOC3 ---
Discharge Summary Visit Information Date of Admission: Sep 23, 2018 Date of Discharge: Sep 26, 2018 Admitting Diagnosis: Seizure Final Diagnosis Problems Medical Problems: (1) Accelerated hypertension Status: Acute (2) Breakthrough seizure Status: Acute (3) Post-ictal aphasia Status: Acute Brief Hospital Course Allergies Allergies Coded Allergies Type Severity Reaction Last Updated Verified Penicillins Allergy Intermediate N/V ITCH 03/30/18 Yes I S O L A T I O N *CONTACT* Allergy Unknown 03/29/18 Yes Vital Signs Vital Signs Date Time Temp Pulse Resp B/P (MAP) Pulse Ox O2 Delivery O2 Flow Rate FiO2 09/26/18 08:36 64 161/87 09/26/18 08:10 98 Room Air 09/26/18 07:25 98.9 16 98.9 09/25/18 23:38 2.0 Lab Results Laboratory Tests Test 09/25/18 03:45 White Blood Count 4.2 x10^3/uL (4.0-11.0) Red Blood Count 4.81 x10^6/uL (3.50-5.40) Hemoglobin 12.2 g/dL (12.0-15.5) Hematocrit 38.2 % (36.0-47.0) Mean Corpuscular Volume 79 fL (79-100) Mean Corpuscular Hemoglobin 26 pg (25-35) Mean Corpuscular Hemoglobin Concent 32 g/dL (31-37) Red Cell Distribution Width 15.4 % (11.5-14.5) Platelet Count 106 x10^3/uL (140-400) Neutrophils (%) (Auto) 64 % (31-73) Lymphocytes (%) (Auto) 24 % (24-48) Monocytes (%) (Auto) 11 % (0-9) Eosinophils (%) (Auto) 1 % (0-3) Basophils (%) (Auto) 1 % (0-3) Neutrophils # (Auto) 2.7 x10^3uL (1.8-7.7) Lymphocytes # (Auto) 1.0 x10^3/uL (1.0-4.8) Monocytes # (Auto) 0.5 x10^3/uL (0.0-1.1) Eosinophils # (Auto) 0.0 x10^3/uL (0.0-0.7) Basophils # (Auto) 0.0 x10^3/uL (0.0-0.2) Ammonia < 10 mcmol/L (11-34) Vitamin B12 Level 291 pg/mL (247-911) Treponema pallidum Antibody Nonreactive (Nonreactive) Brief Hospital Course 62-year-old -[place] female not the best historian, minimal cooperatively on my encounter, hx of seizure. Apparently witnessed a seizure by staff, gets seizures rarely, but a few times per year. Does not follow with a neurologist and there is a mention of noncompliance in chart. Supposed to be on seizure medications but admits to forgetting some. Did receive versed and ativan , was post ictal at the emergency room. Admitted with consult neurology, lactate 9 consistent with seizure. Mention of some reports of low sats initially at the emergency room needing nonrebreather. That has since resolved. Seen by neurology, continued on her keppra, added new BP medications for her uncontrolled HTN. She was seen by PT/OT, recommended SNF. BP has been high despite amlodipine and hydralazine added, so now on triamterene/HCTZ as well. HR low and h/o cocaine use, no BB added. Feeling improved. Would like to discharge home despite recs from PT/OT for SNF on d/c, does live with her mother and sister. Chose [facility]. Treated for HCAP with levaquin with improvement as well, 3 days left on her script. A/P: Seizures, provoked by cocaine with h/o aneurysm - keppra and thiamine, neuro f/ u in 4-6 weeks Bibasilar infiltrates - treating for HCAP with levaquin Toxic encephalopathy, Cocaine - improved Metabolic encephalopathy - with underlying h/o brain aneurysm and bipolar depression with psychosis - geodon and prn lorazepam Cocaine use/abuse likely - counseled Lactic acidosis - improved, was likely seizure provoked Renal failure - likely from vasomotor nephropathy Hx of brain aneurysm - ?s/p clipping at [facility] DM oral meds and insulin HTN - better controlled now HLD - LDL is 199, needs 80mg atorvastatin or 40mg rosuvastatin Needs to work with PT/OT - only wants home health Needs geriatric psych with her h/o seizures and sundowning in the future Sister is her nearest next of kin - d/w her need for skilled svcs on d/c Discharge Information Condition at Discharge: Improved Follow Up: Weeks (2) Disposition/Orders: D/C to Home w/ HH ([facility] ) Scheduled Albuterol Sulfate (Proair Hfa Inhaler) 8.5 Gm Hfa.aer.ad, 2 PUFF IH PRN Q4-6HRS , #1 (Reported) Entered as Reported by: BOBO JUÁREZ on 10/03/15 0620 Last Action: Continued on 09/23/181954 by RYLAND MCKINNON Amlodipine Besylate (Amlodipine Besylate) 10 Mg Tablet, 10 MG PO DAILY for HTN for 30 Days, #30 Ref 2 Prescribed by: ADRIENNE BEAL MD on 07/21/181549 Last Action: Continued on 09/23/181954 by RYLAND MCKINNON Cyanocobalamin (Vitamin B-12) (Vitamin B-12) 1,000 Mcg Tablet, 1,000 MCG PO DAILY for B12 deficient for 30 Days, #30 Ref 11 Prescribed by: ADRIENNE BEAL MD on 09/26/18 0908 Levetiracetam (Keppra) 500 Mg Tablet, 500 MG PO BID for seizure for 30 Days, # 60 Ref 2 Prescribed by: ADRIENNE BEAL MD on 07/21/181549 Last Action: Continued on 09/23/181954 by RYLAND MCKINNON Levofloxacin (Levaquin) 500 Mg Tablet, 500 MG PO DAILY16 for HCAP for 3 Days, #3 Prescribed by: ADRIENNE BEAL MD on 09/26/18 0908 Ranitidine Hcl (Ranitidine Hcl) 150 Mg Capsule, 1 CAP PO BID, #60 Ref 5 ( Reported) Entered as Reported by: KRYSTINA CHARLES on 03/24/182033 Last Action: Converted on 09/23/181954 by RYLAND MCKINNON Thiamine Mononitrate (Vitamin B-1) 100 Mg Tablet, 100 MG PO DAILY for deficiency for 30 Days, #30 Ref 2 Prescribed by: ADRIENNE BEAL MD on 07/21/181549 Last Action: Converted on 09/23/181954 by RYLAND MCKINNON Triamterene/Hydrochlorothiazid (Triamterene-Hctz 37.5-25 Mg Tb) 1 Each Tablet, 1 TAB PO DAILY for HTN for 30 Days, #30 Ref 2 Prescribed by: ADRIENNE BEAL MD on 09/26/18 0908 Ziprasidone Hcl (Geodon) 20 Mg Capsule, 20 MG PO BID for Agitation for 30 Days, #60 Ref 2 Prescribed by: ADRIENNE BEAL MD on 07/21/18 1550 Last Action: Converted on 09/23/181954 by RYLAND MCKINNON Scheduled PRN Hydralazine Hcl (Hydralazine Hcl) 25 Mg Tablet, 25 MG PO PRN TID PRN for HYPERTENSION, SEE COMMENTS for 30 Days, #90 Ref 2 For SBP > 150mmHg take as needed 3 times per day Prescribed by: ADRIENNE BEAL MD on 07/21/18 2710 Last Action: Converted on 09/23/181954 by RYLAND MCKINNON Lorazepam (Ativan) 0.5 Mg Tablet, 0.5 MG PO PRN PRN for ANXIETY / AGITATION, ( Reported) Entered as Reported by: NAZARIO WHYTE on 03/08/16 1131 Last Action: Continued on 09/23/181954 by ADRIENNE GARAY MD Sep 26, 2018 09:15
--- NOTE | 2018-09-26 09:18 | DISCH ---
DISCHARGE WITH HOME HEALTH DISCHARGE INFORMATION: Discharge Date: Sep 26, 2018 Final Diagnosis: Problems Medical Problems: (1) Accelerated hypertension Status: Acute (2) Breakthrough seizure Status: Acute (3) Post-ictal aphasia Status: Acute Condition on Discharge: Stable CODE STATUS: Code Status: Full HOME HEALTH: Face to Face: I certify this patient is under my care and that I, or a nurse practitioner or physician's machine operator assistant working with me, had a face to face encounter that meets the physician face to face encounter requirements with this patient on 09/26/18. Medical Complications: COPD, Pneumonia, Other (SEIZURE) Physical Therapy For: Evalulation/Treatment Occupational Therapy For: Evaluation/Treatment Home Health Aide For: Self-care Pt Meets Homebound Status: Unsteady balance w/ amb, POST DISCHARGE ORDERS: Activity Instructions for Disc: Activity as tolerated Weight Bearing Status after Di: As tolerated Bathing Instructions: Shower-keep dressing dry DIET AFTER DISCHARGE: ADA Wound/Incision Care: Other, see below CHECKS AFTER DISCHARGE: Checks after discharge: Check blood press - daily, Check blood sugar, ac/hs FOLLOW-UP: Follow up with: Neurology - Dr. Trejo 4-6 weeks TREATMENT/EQUIPMENT ORDERS: Adaptive Equipment Issued: None CERTIFICATION STATEMENT: Certification Statement: Certification Statement: Based on the above finding, I certify that this patient is confined to the home and needs intermittent custodial care, physical therapy and/or speech therapy, or continues to need occupational therapy.~ This patient is under my care, and I have initiated the establishment of the plan of care.~ This patient will be followed by myself or a community physician who will periodically review the plan of care. Home Meds Active Scripts Cyanocobalamin (Vitamin B-12) (VITAMIN B-12) 1,000 Mcg Tablet, 1000 MCG PO DAILY for B12 deficient for 30 Days, #30 TAB 11 Refills Prov:ADRIENNE BEAL MD 09/26/18 Levofloxacin (LEVAQUIN) 500 Mg Tablet, 500 MG PO DAILY16 for HCAP for 3 Days, # 3 TAB Prov:ADRIENNE BEAL MD 09/26/18 Triamterene/Hydrochlorothiazid (TRIAMTERENE-HCTZ 37.5-25 MG TB) 1 Each Tablet, 1 TAB PO DAILY for HTN for 30 Days, #30 TAB 2 Refills Prov:ADRIENNE BEAL MD 09/26/18 Hydralazine Hcl (HYDRALAZINE HCL) 25 Mg Tablet, 25 MG PO PRN TID PRN for HYPERTENSION, SEE COMMENTS for 30 Days, #90 TAB 2 Refills For SBP > 150mmHg take as needed 3 times per day Prov:ADRIENNE BEAL MD 07/21/18 Amlodipine Besylate (AMLODIPINE BESYLATE) 10 Mg Tablet, 10 MG PO DAILY for HTN for 30 Days, #30 TAB 2 Refills Prov:ADRIENNE BEAL MD 07/21/18 Levetiracetam (KEPPRA) 500 Mg Tablet, 500 MG PO BID for seizure for 30 Days, # 60 TAB 2 Refills Prov:ADRIENNE BEAL MD 07/21/18 Ziprasidone Hcl (GEODON) 20 Mg Capsule, 20 MG PO BID for Agitation for 30 Days, #60 CAP 2 Refills Prov:ADRIENNE BEAL MD 07/21/18 Thiamine Mononitrate (VITAMIN B-1) 100 Mg Tablet, 100 MG PO DAILY for deficiency for 30 Days, #30 TAB 2 Refills Prov:ADRIENNE BEAL MD 07/21/18 Reported Medications Ranitidine Hcl (RANITIDINE HCL) 150 Mg Capsule, 1 CAP PO BID, #60 CAP 5 Refills 03/24/18 Lorazepam (ATIVAN) 0.5 Mg Tablet, 0.5 MG PO PRN PRN for ANXIETY / AGITATION, TAB 03/08/16 Albuterol Sulfate (PROAIR HFA INHALER) 8.5 Gm Hfa.aer.ad, 2 PUFF IH PRN Q4-6HRS , #1 INHALER 10/03/15 ADRIENNE BEAL MD Sep 26, 2018 09:18
[2018-09-26] MEDS ORDERED: CYANOCOBALAMIN (VITAMIN B-12) 1,000 MCG TABLET. PO SCH (10:00)
[2018-09-26] MEDS ORDERED: TRIAMTERENE/HCTZ 37.5/25MG TABLET. PO SCH (10:00)
[2018-09-26 10:58] VITALS: BP 157/87
--- NOTE | 2018-09-26 11:06 | NUR ---
SW following pt. Spoke with Heydi from [facility] and she will be arranging HH.
[2018-09-26] MEDS: LORazepam 0.5 MG TABLET PO PRN (12:07)
--- NOTE | 2018-09-26 12:15 | NUR ---
Reviewed d/c information with patient. Patient daughter came to potato picker patient while this RN was at lunch, apparently patient tried to leave before daughter arrived and security was called and PO Ativan given. IV removed by patient prior to all of this. Walked downstairs with staff and her daughter.
[2018-09-27] MEDS ORDERED: ZIPR20CA2 PO (06:26)
== END 2018-09-26 12:15 | disposition home health service (06) | DRG 917 ==
LOC: ER 19:16 → 6 SOUTH 21:00
PROVIDERS: ADMIT Internal Medicine; ATTEND Internal Medicine
DX: T40.5X1A Poisoning by cocaine, accidental (unintentional), initial encounter (principal); G92 Toxic encephalopathy; N17.0 Acute kidney failure with tubular necrosis; J18.9 Pneumonia, unspecified organism; F31.5 Bipolar disorder, current episode depressed, severe, with psychotic features; E87.2 Acidosis; R47.01 Aphasia; G40.909 Epilepsy, unspecified, not intractable, without status epilepticus; E10.9 Type 1 diabetes mellitus without complications; R09.02 Hypoxemia; F14.90 Cocaine use, unspecified, uncomplicated; I10 Essential (primary) hypertension; E78.5 Hyperlipidemia, unspecified; E78.00 Pure hypercholesterolemia, unspecified; J45.909 Unspecified asthma, uncomplicated; K21.9 Gastro-esophageal reflux disease without esophagitis; Y95 Nosocomial condition; Z79.4 Long term (current) use of insulin; Z85.038 Personal history of other malignant neoplasm of large intestine; Z90.710 Acquired absence of both cervix and uterus; Z91.14 Patient's other noncompliance with medication regimen; Z91.19 Patient's noncompliance with other medical treatment and regimen; Y92.89 Other specified places as the place of occurrence of the external cause
CPT/HCPCS: 36415; 36600; 51702; 70450; 71045; 80053; 80307; 81001; 82140; 82607; 82805; 82962; 83605; 85025; 86592; 87804; 94640; 94760; 96361; 96365; 96375; A4314; G0480; J1953; J2310; J3490; J7030; J7613; 97530; 99285-25

== ENCOUNTER 2018-09-27 02:45 | Emergency (ER) | payer MEDICARE ==
[~2018-09-27] VITALS: Ht 165.1 cm; Wt 47.6 kg
[~2018-09-27 02:45] MED LIST changes: +CYAN10005 PO; +TRIA1TAB3 PO
[2018-09-27 03:37] LABS: BILIRUBIN,URINE NEGATIVE (NEG); CLARITY,URINE CLEAR; COLOR,URINE YELLOW; NITRITE,URINE NEGATIVE (NEG); PH,URINE 6.5; PROTEIN,URINE 30 mg/dL (NEG-TRACE)
[2018-09-27 03:43] LABS: BARBITURATES NEG (NEG); BENZODIAZEPINES NEG (NEG); CANNABINOIDS NEG (NEG); COCAINE NEG (NEG); METHADONE NEG (NEG); OPIATES POS (NEG); PHENCYCLIDINE NEG (NEG)
[2018-09-27 03:48] LABS: BACTERIA,URINE 0 /HPF (0-FEW); RBC,URINE OCC /HPF (0-2); SQUAMOUS EPITHELIAL CELL,UR OCC /LPF; WBC,URINE OCC /HPF (0-4)
[2018-09-27 03:58] LABS: AMPHETAMINE/METHAMPHETAMINE NEG (NEG)
[2018-09-27 04:15] LABS: BASO % 1 % (0-3); EOS # 0.1 x10^3/uL (0.0-0.7); EOS % 2 % (0-3); HEMOGLOBIN 12.5 g/dL (12.0-15.5); LYMPH # 1.1 x10^3/uL (1.0-4.8); LYMPH % 24 % (24-48); MEAN CORPUSCULAR HEMOGLOBIN 25 pg (25-35); MEAN CORPUSCULAR HGB CONC 32 g/dL (31-37); MEAN CORPUSCULAR VOLUME 80 fL (79-100); MONO # 0.5 x10^3/uL (0.0-1.1); MONO % 10 % (0-9); NEUT % 64 % (31-73); PLATELET COUNT 134 x10^3/uL (140-400); RED CELL DISTRIBUTION WIDTH 15.4 % (11.5-14.5); WHITE BLOOD COUNT 4.7 x10^3/uL (4.0-11.0)
[2018-09-27 04:22] VITALS: BP 164/95
[2018-09-27 04:33] LABS: CALCIUM 9.8 mg/dL (8.5-10.1); CREATININE 1.1 mg/dL (0.6-1.0); GFR 60.5; POTASSIUM 4.1 mmol/L (3.5-5.1)
[2018-09-27 04:39] LABS: ALBUMIN 3.4 g/dL (3.4-5.0); ALBUMIN/GLOBULIN RATIO 0.8 (1.0-1.7); TOTAL BILIRUBIN 0.3 mg/dL (0.2-1.0); TOTAL PROTEIN 7.6 g/dL (6.4-8.2)
[2018-09-27] MEDS ORDERED: LORazepam 1 MG TABLET ONE (04:55)
[2018-09-27] MEDS ORDERED: LORazepam 1 MG TABLET PO ONE (05:15)
[2018-09-27] MEDS ORDERED: ZIPRASIDONE 20 MG CAPSULE PO ONE (05:15)
--- NOTE | 2018-09-27 05:58 | PHYS DOC ---
Past Medical History Past Medical History: Arthritis, Hypertension, Seizure, UTI Additional Past Medical Histor: cocaine abuse, severe protein malnutrition. Past Surgical History: Cholecystectomy, Hysterectomy, Other Additional Past Surgical Histo: perforated ulcer Alcohol Use: Heavy Drug Use: Cocaine Adult General Chief Complaint Chief Complaint: ALTERED MENTAL STATUS [facility] HPI Patient is a 62 year old female presents brought in by ambulance. She was walking around in the snow near her home she said that she had some alcohol in it and she was just walking. Of note patient does have a history of cocaine abuse seizure disorder during likely dementia based on chart review. History is overall limited by the patient's mental status. On my review of chart and also on my knowledge of this patient I think she is at her mental status baseline. Review of Systems Review of Systems Constitutional: Denies fever or chills [] : Patient denies any chest pain or shortness of breath Cardiovascular: No additional information not addressed in HPI [] Musculoskeletal: Denies back pain or joint pain [] Integument: Denies rash or skin lesions [] Neurologic: Denies headache, focal weakness or sensory changes [] Endocrine: Denies polyuria or polydipsia [] All other systems were reviewed and found to be within normal limits, except as documented in this note. Current Medications Current Medications Current Medications Medications (Trade) Dose Ordered Sig/Zee Start Time Stop Time Status Last Admin Dose Admin Lorazepam (Ativan) 1 mg STK-MED ONCE 09/27/18 04:55 09/27/18 04:56 DC Ziprasidone (Geodon) 20 mg 1X ONCE 09/27/18 05:15 09/27/18 05:16 DC 09/27/18 04:57 20 MG Allergies Allergies Allergies Coded Allergies Type Severity Reaction Last Updated Verified Penicillins Allergy Intermediate N/V ITCH 03/30/18 Yes I S O L A T I O N *CONTACT* Allergy Unknown 03/29/18 Yes Physical Exam Physical Exam Constitutional: Well developed, well nourished, no acute distress, non-toxic appearance. [] HENT: Normocephalic, atraumatic, bilateral external ears normal, oropharynx moist, no oral exudates, nose normal. [] Eyes: PERRLA, EOMI, conjunctiva normal, no discharge. [] Neck: Normal range of motion, no tenderness, supple, no stridor. [] Cardiovascular:Heart rate regular rhythm, no murmur [] Lungs & Thorax: Bilateral breath sounds clear to auscultation [] Abdomen: Bowel sounds normal, soft, no tenderness, no masses, no pulsatile masses. [] Skin: Warm, dry, no erythema, no rash. [] Extremities: No tenderness, no cyanosis, no clubbing, ROM intact, no edema. [] Neurologic: Alert and oriented X 2 thinks Ulisses Jones is the president, normal motor function, normal sensory function, no focal deficits noted. [] Psychologic: Affect normal, judgement normal, mood normal. [] Current Patient Data Vital Signs Vital Signs Date Time Temp Pulse Resp B/P (MAP) Pulse Ox O2 Delivery O2 Flow Rate FiO2 09/27/18 04:22 71 09/27/18 02:45 97.4 16 147/96 (113) 94 Room Air 97.4 Lab Values Laboratory Tests Test 09/27/18 03:27 09/27/18 04:04 Urine Collection Type U cath Urine Color Yellow Urine Clarity Clear Urine pH 6.5 Urine Specific [place] 1.010 Urine Protein 30 mg/dL (NEG-TRACE) Urine Glucose (UA) Negative mg/dL (NEG) Urine Ketones (Stick) Negative mg/dL (NEG) Urine Blood Negative (NEG) Urine Nitrite Negative (NEG) Urine Bilirubin Negative (NEG) Urine Urobilinogen Dipstick 1.0 mg/dL (0.2 mg/dL) Urine Leukocyte Esterase Negative (NEG) Urine RBC Occ /HPF (0-2) Urine WBC Occ /HPF (0-4) Urine Squamous Epithelial Cells Occ /LPF Urine Bacteria 0 /HPF (0-FEW) Urine Mucus Slight /LPF Urine Opiates Screen Pos (NEG) Urine Methadone Screen Neg (NEG) Urine Barbiturates Neg (NEG) Urine Phencyclidine Screen Neg (NEG) Urine Amphetamine/Methamphetamine Neg (NEG) Urine Benzodiazepines Screen Neg (NEG) Urine Cocaine Screen Neg (NEG) Urine Cannabinoids Screen Neg (NEG) Urine Ethyl Alcohol Neg (NEG) White Blood Count 4.7 x10^3/uL (4.0-11.0) Red Blood Count 4.90 x10^6/uL (3.50-5.40) Hemoglobin 12.5 g/dL (12.0-15.5) Hematocrit 39.0 % (36.0-47.0) Mean Corpuscular Volume 80 fL (79-100) Mean Corpuscular Hemoglobin 25 pg (25-35) Mean Corpuscular Hemoglobin Concent 32 g/dL (31-37) Red Cell Distribution Width 15.4 % (11.5-14.5) H Platelet Count 134 x10^3/uL (140-400) L Neutrophils (%) (Auto) 64 % (31-73) Lymphocytes (%) (Auto) 24 % (24-48) Monocytes (%) (Auto) 10 % (0-9) H Eosinophils (%) (Auto) 2 % (0-3) Basophils (%) (Auto) 1 % (0-3) Neutrophils # (Auto) 3.0 x10^3uL (1.8-7.7) Lymphocytes # (Auto) 1.1 x10^3/uL (1.0-4.8) Monocytes # (Auto) 0.5 x10^3/uL (0.0-1.1) Eosinophils # (Auto) 0.1 x10^3/uL (0.0-0.7) Basophils # (Auto) 0.0 x10^3/uL (0.0-0.2) Sodium Level 141 mmol/L (136-145) Potassium Level 4.1 mmol/L (3.5-5.1) Chloride Level 104 mmol/L (98-107) Carbon Dioxide Level 22 mmol/L (21-32) Anion Gap 15 (6-14) H Blood Urea Nitrogen 18 mg/dL (7-20) Creatinine 1.1 mg/dL (0.6-1.0) H Estimated GFR (Cockcroft-Gault) 60.5 BUN/Creatinine Ratio 16 (6-20) Glucose Level 101 mg/dL (70-99) H Calcium Level 9.8 mg/dL (8.5-10.1) Total Bilirubin 0.3 mg/dL (0.2-1.0) Aspartate Amino Transferase (AST) 14 U/L (15-37) L Alanine Aminotransferase (ALT) 12 U/L (14-59) L Alkaline Phosphatase 91 U/L (46-116) Total Protein 7.6 g/dL (6.4-8.2) Albumin 3.4 g/dL (3.4-5.0) Albumin/Globulin Ratio 0.8 (1.0-1.7) L Ethyl Alcohol Level < 10 mg/dL (0-10) Laboratory Tests 09/27/18 04:04 Laboratory Tests 09/27/18 04:04 EKG EKG []EKG showed normal sinus rhythm rate of 78 LVH pattern no ischemia noted. Radiology/Procedures Radiology/Procedures [] Impressions: My interpretation chest x-ray was negative acute Course & Med Decision Making Course & Med Decision Making Pertinent Labs and Imaging studies reviewed. (See chart for details) []62-year-old female is presenting after being found walking around in the snow patient is a long history of altered mental status probable dementia and sundowning per chart review. She lives with family. I did call me the message for Jocelynn at 5 AM we're waiting for call back at this point I think she is basically at her baseline until we get corroborating information from the family probably will be a plan to discharge home with family once they are contacted if they can confirm safe home situation. snf had been declined in the recent past. pt did try to get out of the er bed a couple times but responded to wendy and ativan Discussed with the daughter over the phone who is suggesting that we send her back home she will be able to keep an eye on her after work today would like a perception for a medicine to keep her calm at home so I have prescribed Geodon twice a day which has been given to her in the past and apparently home health is due to see her as well soon. I did talk with the daughter about possibly disposition to a nursing facility has had been suggested in the recent inpatient discharge summary however the daughter it sounds like prefers a trial of home management with some medication treatment and follow-up with home health. Dragon Disclaimer Dragon Disclaimer This electronic medical record was generated, in whole or in part, using a voice recognition dictation system. Departure Departure Impression: Primary Impression: Altered mental status Disposition: HOME, SELF-CARE Condition: STABLE Referrals: KRISTINE MELENDEZ MD (PCP) Scripts Ziprasidone Hcl (GEODON) 20 Mg Capsule 1 CAP PO BID, #60 CAP 1 Refill Prov: ROE PHELPS MD 09/27/18 ROE PHELPS MD Sep 27, 2018 05:57
[2018-09-27] MEDS ORDERED: ZIPR20CA2 PO (06:26)
--- NOTE | 2018-09-27 10:27 | EKG ---
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
--- NOTE | 2018-09-27 19:20 | RAD ---
Chest radiograph 09/27/2018 4:44 AM INDICATION: Altered mental status COMPARISON: September 23, 2018 TECHNIQUE: Portable upright frontal view of the chest is provided. FINDINGS: The cardiomediastinal silhouette is within normal limits. There are no pleural effusions. There is no pulmonary vascular congestion. There is no pneumothorax. Mild right hilar prominence appears stable. Lungs are otherwise clear. No significant osseous abnormality is identified. IMPRESSION: Stable mild right hilar prominence without acute cardiopulmonary process. Electronically signed by: Rashmi Cheatham MD (09/27/2018 7:17 PM) [facility]
== END 2018-09-27 07:38 | disposition home or self-care (01) ==
LOC: ER 02:45
DX: R41.82 Altered mental status, unspecified (principal); I10 Essential (primary) hypertension; F03.90 Unspecified dementia, unspecified severity, without behavioral disturbance, psychotic disturbance, mood disturbance, and anxiety; F10.20 Alcohol dependence, uncomplicated; Y90.9 Presence of alcohol in blood, level not specified; Z88.0 Allergy status to penicillin; Z91.041 Radiographic dye allergy status
CPT/HCPCS: 36415; 51701; 71045; 80053; 80307; 81001; 85025; 93005; G0480; 99284-25

== ENCOUNTER 2018-09-27 23:08 | Inpatient (IN) | payer MEDICARE ==
[~2018-09-27] VITALS: Ht 154.9 cm; Wt 47.9 kg
[2018-09-27] MEDS ORDERED: ZIPRASIDONE IM 20 MG VIAL. IM ONE ×2 (23:40→23:45)
--- NOTE | 2018-09-28 00:52 | PHYS DOC ---
Past Medical History Past Medical History: Arthritis, Hypertension, Seizure, UTI Additional Past Medical Histor: cocaine abuse, severe protein malnutrition. Past Medical History Unable to obtain due to confusion Past Surgical History: Cholecystectomy, Hysterectomy, Other Additional Past Surgical Histo: perforated ulcer Past Surgical History Unable to obtain due to confusion Smoking: Cigarettes Alcohol Use: Heavy Drug Use: Cocaine Social History Unable to obtain due to confusion Adult General Chief Complaint Chief Complaint: ALTERED MENTAL STATUS HPI HPI 62 y/o female presents via EMS with report of continued "confusion". Patient has been run by EMS "several times" in the last 2 days for this confusion. Patient apparently lives with her elderly mother. The mother has called 911 today due to being "unable to control" the patient. Patient reports she thinks she is at "[facility]" and it is 330PM and the year is "2003". Patient denies other complaint. EMS was able to walk in with patient, as she refused to lay on the gurney. EMS denies known trauma. No history of fever. Patient reports she wasn't to leave because her "family is waiting in the waiting room for me." Patient seen earlier today at [facility] in the ED per [facility] review for same. Patient was found walking around in the snow outside her home. Patient apparently has a long history of altered mental status with report of probable dementia and sundowning per chart review. Plan upon discharge from ED earlier today was to trial home care with prescriptions for Geodon. Family told EMS that patient was "not able to be controlled". HPI limited due to altered mental status. Review of Systems Review of Systems Neurologic: Reports confusion ROS limited due to altered mental status. Current Medications Current Medications Current Medications Medications (Trade) Dose Ordered Sig/Zee Start Time Stop Time Status Last Admin Dose Admin Lorazepam (Ativan) 2 mg STK-MED ONCE 09/27/18 23:59 09/28/18 00:00 DC Ziprasidone (Geodon Im) 20 mg STK-MED ONCE 09/27/18 23:40 09/27/18 23:41 DC Allergies Allergies Allergies Coded Allergies Type Severity Reaction Last Updated Verified Penicillins Allergy Intermediate N/V ITCH 03/30/18 Yes I S O L A T I O N *CONTACT* Allergy Unknown 03/29/18 Yes Physical Exam Physical Exam Constitutional: Well developed, well nourished, agitated Eyes: EOMI, conjunctiva normal, no discharge. [] Neck: Normal range of motion, no tenderness, supple Cardiovascular: Heart rate regular rhythm, no murmur [] Lungs & Thorax: Bilateral breath sounds clear to auscultation [] Abdomen: Soft, no tenderness Skin: Warm, dry, no erythema, no rash. [] Extremities: No tenderness, ROM intact Neurologic: Alert to name only, gait stable, moving all extremities Psychologic: Paranoid and confused Current Patient Data Vital Signs Vital Signs Date Time Temp Pulse Resp B/P (MAP) Pulse Ox O2 Delivery O2 Flow Rate FiO2 09/27/18 23:48 102 23 09/27/18 23:10 98.0 153/97 (115) 96 Room Air 98.0 EKG EKG @ 0121 NSR at 78bpm, NO ST elevation Radiology/Procedures Radiology/Procedures [] Impressions: CT head and CXR from resident manager 09/27/18 without acute process per Zzish review Course & Med Decision Making Course & Med Decision Making Pertinent Labs and Imaging studies reviewed. (See chart for details) Patient presents via EMS for re-evaluation of increased confusion and inability for family to control patient. ED visit from 09/27/18 reviewed. Per review plan was for patient to trial home with prescription for Geodon. Chart reviewed with normal CT head and CXR. Patient very agitated and paranoid. Hx of possible dementia and "sundowning" per Zzish review. Patient wanting to go meet her family in the waiting room and walking with RN assistance around department. Patient would not go to room. Geodon and Ativan IM given with interval improvement of agitation. Labs obtained and posted to chart. Creat elevated from prior. IVF hydration given. EKG stable. CT head and CXR reviewed from earlier day's visit without acute process. Patient unsafe for discharge as family unable to care for patient at this time. Patient requiring admission for further evaluation and treatment. Discussed with Dr. Sam (hospitalist) who is in agreement with admission. Dragon Disclaimer Dragon Disclaimer This electronic medical record was generated, in whole or in part, using a voice recognition dictation system. Departure Departure Impression: Primary Impression: Altered mental status Additional Impressions: At risk for elder neglect Acute on chronic renal insufficiency Disposition: ADMITTED INPATIENT Admitting Physician: Other (Riffel) Condition: GUARDED Referrals: KRISTINE MELENDEZ MD (PCP) Problem Qualifiers Primary Impression: Altered mental status Altered mental status type: unspecified Qualified Codes: R41.82 - Altered mental status, unspecified LO DORAN DO Sep 28, 2018 00:52
[2018-09-28 01:40] LABS: BASO % 1 % (0-3); EOS % 1 % (0-3); HEMATOCRIT 37.2 % (36.0-47.0); LYMPH # 1.4 x10^3/uL (1.0-4.8); LYMPH % 33 % (24-48); MEAN CORPUSCULAR HEMOGLOBIN 25 pg (25-35); MEAN CORPUSCULAR HGB CONC 32 g/dL (31-37); MEAN CORPUSCULAR VOLUME 79 fL (79-100); MONO # 0.4 x10^3/uL (0.0-1.1); MONO % 11 % (0-9); NEUT # 2.3 x10^3uL (1.8-7.7); NEUT % 54 % (31-73); PLATELET COUNT 138 x10^3/uL (140-400); RED BLOOD COUNT 4.72 x10^6/uL (3.50-5.40); RED CELL DISTRIBUTION WIDTH 15.6 % (11.5-14.5); WHITE BLOOD COUNT 4.2 x10^3/uL (4.0-11.0)
[2018-09-28 01:52] LABS: CALCIUM 9.4 mg/dL (8.5-10.1); GFR 30.4; POTASSIUM 3.7 mmol/L (3.5-5.1); PROTHROMBIN TIME PATIENT 13.6 SEC (11.7-14.0)
[2018-09-28 01:57] LABS: BILIRUBIN,URINE NEGATIVE (NEG); CLARITY,URINE CLEAR; COLOR,URINE YELLOW; NITRITE,URINE NEGATIVE (NEG); PH,URINE 5.5; PROTEIN,URINE 30 mg/dL (NEG-TRACE); UROBILINOGEN,URINE 0.2 mg/dL (0.2 mg/dL)
[2018-09-28 01:58] LABS: ALBUMIN 3.5 g/dL (3.4-5.0); ALBUMIN/GLOBULIN RATIO 0.9 (1.0-1.7); TOTAL BILIRUBIN 0.3 mg/dL (0.2-1.0); TOTAL PROTEIN 7.5 g/dL (6.4-8.2)
[2018-09-28 02:06] LABS: BARBITURATES NEG (NEG); BENZODIAZEPINES NEG (NEG); CANNABINOIDS NEG (NEG); COCAINE NEG (NEG); METHADONE NEG (NEG); OPIATES POS (NEG); PHENCYCLIDINE NEG (NEG)
[2018-09-28 02:08] LABS: AMPHETAMINE/METHAMPHETAMINE NEG (NEG)
[2018-09-28 02:13] LABS: BACTERIA,URINE 0 /HPF (0-FEW); RBC,URINE OCC /HPF (0-2); WBC,URINE OCC /HPF (0-4)
[2018-09-28 02:14] LABS: HYALINE CASTS, URINE FEW /HPF; SQUAMOUS EPITHELIAL CELL,UR OCC /LPF
[2018-09-28] MEDS ORDERED: IV NORMAL SALINE 1000ML BAG 1,000 ML IV ONE (03:00)
[2018-09-28 03:27] VITALS: BP 129/78
[2018-09-28 07:00] VITALS: BP 94/54
--- NOTE | 2018-09-28 08:19 | EKG ---
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
[2018-09-28] MEDS: IV RINGERS,LACTATED 1000ML 1,000 ML IV SCH ×3 (09:09→20:40)
--- NOTE | 2018-09-28 09:23 | NUR ---
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 Pt to be in contact precautions.
[2018-09-28 11:00] VITALS: BP 126/74
--- NOTE | 2018-09-28 11:00 | NUR ---
NICOL responding to a referral regarding AMS and placement, hx dementia. SW phoned pt's daughter, Shawanda Dawson via phone: [phone]. Shawanda reported she would like to discuss with SW in person will be at hospital after 1300. Pt currently 1:1. SW requested RN to document behaviors to evaluate for [facility] psych. RN to order PT/OT as well. Will continue to follow.
--- NOTE | 2018-09-28 12:05 | NUR ---
Patient is Taina Cheek, 62 y/o, female admitted due to altered mental status. She's on 1:1 observation due to risk of wandering. Patient was asleep until 1050, no complaints noted. She is alert, oriented to person, confused with time and place. She claims to be at home with her mom. Patient is able to verbalize her needs.
[2018-09-28] MEDS ORDERED: hydrALAZINE 25 MG TABLET PO PRN (12:30)
[2018-09-28] MEDS ORDERED: ALBUTEROL SULFATE 2.5 MG/3 ML NEBU. NEB PRN (12:45)
[2018-09-28] MEDS: levETIRAcetam 500 MG TABLET PO SCH ×2 (12:52→20:35)
[2018-09-28] MEDS: CYANOCOBALAMIN (VITAMIN B-12) 1,000 MCG TABLET. PO SCH (12:52)
[2018-09-28] MEDS: FAMOTIDINE 20 MG TABLET. PO SCH (12:52)
[2018-09-28] MEDS: ZIPRASIDONE 20 MG CAPSULE PO SCH ×2 (12:52→20:35)
[2018-09-28] MEDS: THIAMINE 100 MG TABLET. PO SCH (12:52)
[2018-09-28] MEDS: amLODIPine BESYLATE 10 MG TABLET PO SCH (12:53)
[2018-09-28] MEDS ORDERED: TRIAMTERENE/HCTZ 37.5/25MG TABLET. PO SCH (13:00)
[2018-09-28] MEDS: LORazepam 0.5 MG TABLET PO PRN ×3 (13:10→20:35)
--- NOTE | 2018-09-28 13:23 | NUR ---
SW following. Spoke with RN and pt will benefit from [facility] team anuj. NICOL phoned [facility] team and left a voice mail for Dayln requesting a call back. Addendum: 09/28/18 at 1400 by SORAYA CAMARENA Spoke with They will send someone to see pt today. Will continue to follow.
--- NOTE | 2018-09-28 13:47 | NUR ---
Patient became agitated at 1320, verbalized that she is scared and wanted to go home. Asked if her daughter would come to see her. This nurse reassured her that she is safe and reoriented the patient to her surroundings. Paged Dr. Sam at 1330 and he assessed the patient. Nursing staff will continue to monitor.
--- NOTE | 2018-09-28 15:06 | NUR ---
Patient pulled out her IV at 1400, said she doesn't need it; informed attending about not having IV access. Will not reinsert IV per physician. The patient's daughter and other family members came to visit her.
[2018-09-28 15:16] VITALS: BP 144/93
--- NOTE | 2018-09-28 16:31 | NUR ---
NICOL following pt. Pt evaluated by PAT team and recommendation is for LTC placement at locked facility. Pt's daughter also interested in sade psych eval as well as pt has been 'uncontrollable' the past couple of days. Daughter reports pt is not able to go back to live with her mother who is elderly. Daughter reports she can not take pt back home with her as she works and is not sure if pt can stay at home safe. Daughter believes pt might benefit from respite stay in [facility] or need sade psych eval. NICOL extensively discussed LTC, SNF and insurance coverage. NICOL provided pt's daughter with a copy of Medicaid nirav and she reported she will fill out and bring copy tomorrow. NICOL phoned and faxed referral to [facility] psych. Will continue to follow.
[2018-09-28 19:18] VITALS: BP 145/83
--- NOTE | 2018-09-28 19:23 | PDOC2 ---
NEUROLOGY CONSULT Date of Admission Date of Admission DATE: 09/28/18 TIME: 18:41 Reason for Consult Reason for Consult: IMPRESSION: Seizure. Metabolic encephalopathy. Confusion. Renal failure. HLD. Opiate positive. RECOMMENDATIONS/PLAN: Continue Keppra 500 mg bid. May increase to 750 mg bid if has more seizures. EEG. Lab: see orders. Treat medical diseases. OT/PT. Her HCT on 09/23/18 was no acute findings. HISTORY OF THE PRESENT ILLNESS: 62-y-old AA female patient with history of seizure and has been treated with Keppra per docu. She has been having symptoms of mental status changes and confusion in the past a couple of days. She said she had a seizure on 09/27/18 and had 3 seizures this month. presents via EMS with report of continued "confusion". Patient has been run by EMS "several times" in the last 2 days for this confusion. Patient apparently lives with her elderly mother. The mother called 911 today due to being "unable to control" the patient. Past Medical History Cardiovascular: HTN Pulmonary: Asthma CENTRAL NERVOUS SYSTEM: Seizure, Other GI: GERD Endocrine: Diabetes Past Surgical History No information is available. Family History No Significant Social History ALCOHOL: none Drugs: None Lives at home with her mother and daughter. Allergies Coded Allergies: Penicillins (Verified Allergy, Intermediate, N/V ITCH, 03/30/18) I S O L A T I O N *CONTACT* (Verified Allergy, Unknown, 03/29/18) carbapenem resistant PSA REVIEW OF SYSTEMS: Constitutional: No malnutrition, weight loss, cachexia. Head: No traumatic brain or head injury. Skin: No edema, or rash. Ear: No infection. Eyes: No vision loss or color blindness. Nose: No bleeding or purulent discharges. Hearing: No hearing decrease. Neck: No injury. Breast: No history of cancer, masses,or discharges. Cardiac: HLD. Pulmonary: No COPD. GI: No GI ulcer, GI bleeding. Urinary/genital: UTI. Endocrinologic: No cousin face, craniofacial dysmorphism, polydactyly. Skeletomuscular: No muscular atrophy, deformity. Neurological: see HP. Psychiatric: Denies drug use/abuse. Otherwise, not [id number] review of systems. PHYSICAL EXAMINATION: General appearance is in encephalopathic state. HEENT: Normocephalic and nontraumatic. Eyes, nose, ears, and throat are unremarkable. Neck is supple. No lymphadenopathy. No crepitus. Cardiovascular: S1, S2, regular rate and rhythm. Pulmonary: Clear to auscultation bilaterally. Abdomen: Bowel sounds are positive. Extremities: No rash, lesions, or edema. No restriction of range of motion NEUROLOGICAL EXAMINATION: Awake. Not oriented to time, but knew place and person. PERRL. EOMI. CN: no focal findings. Muscle tone: within normal. Muscle strength: 5- DTR: 2- Plantar reflex: Flexor response bilaterally Gait: not examined in bed. Sensory exam: no abnormal findings. No cerebellar signs elicited. F-T-N test fine. Current Medications Current Medications Current Medications Ziprasidone (Geodon Im) 20 mg 1X ONCE IM Last administered on 09/27/18at 23:45 ; Start 09/27/18 at 23:45; Stop 09/27/18 at 23:46; Status DC Ziprasidone (Geodon Im) 20 mg STK-MED ONCE IM ; Start 09/27/18 at 23:40; Stop at 23:41; Status DC Lorazepam (Ativan) 2 mg 1X ONCE IM Last administered on 09/28/18at 00:05; Start 09/28/18 at 00:00; Stop 09/28/18 at 00:01; Status DC Lorazepam (Ativan) 2 mg STK-MED ONCE .ROUTE ; Start 09/27/18 at 23:59; Stop at 00:00; Status DC Sodium Chloride 1,000 ml @ 1,000 mls/hr 1X ONCE IV Last administered on at 03:00; Start 09/28/18 at 03:00; Stop 09/28/18 at 03:59; Status DC Ringer's Solution 1,000 ml @ 125 mls/hr Q8H IV Last administered on 09/28/18at 09:09; Start 09/28/18 at 09:00 Amlodipine Besylate (Norvasc) 10 mg DAILY PO Last administered on 09/28/18at 12: 53; Start 09/28/18 at 13:00 Cyanocobalamin (Vitamin B-12) 1,000 mcg DAILY PO Last administered on at 12:52; Start 09/28/18 at 13:00 Levetiracetam (Keppra) 500 mg BID PO Last administered on 09/28/18 12:52; Start 09/28/18 at 13:00 Lorazepam (Ativan) 0.5 mg TID PRN PRN PO ANXIETY / AGITATION Last administered on 09/28/18at 15:38; Start 09/28/18 at 12:30 Triamterene/HCTZ (Maxzide 37.5/ 25mg) 1 tab DAILY PO Last administered on 12:52; Start 09/28/18 at 13:00; Stop 09/28/18 at 15:50; Status DC Hydralazine HCl (Apresoline) 25 mg PRN TID PRN PO HYPERTENSION, SEE COMMENTS; Start 09/28/18 at 12:30 Famotidine (Pepcid) 20 mg DAILY PO Last administered on 09/28/18 12:52; Start 09/28/18 at 13:00 Thiamine Mononitrate (Vitamin B-1) 100 mg DAILY PO Last administered on at 12:52; Start 09/28/18 at 13:00 Ziprasidone (Geodon) 20 mg BID PO Last administered on 09/28/18 12:52; Start 09/28/18 at 12:45 Albuterol Sulfate (Ventolin Neb Soln) 2.5 mg PRN Q6HRS PRN NEB SHORTNESS OF BREATH; Start 09/28/18 at 12:45 Atorvastatin Calcium (Lipitor) 10 mg QHS PO ; Start 09/28/18 at 21:00 Active Scripts Active Geodon (Ziprasidone Hcl) 20 Mg Capsule 1 Cap PO BID Vitamin B-12 (Cyanocobalamin (Vitamin B-12)) 1,000 Mcg Tablet 1,000 Mcg PO DAILY 30 Days Levaquin (Levofloxacin) 500 Mg Tablet 500 Mg PO DAILY16 3 Days Triamterene-Hctz 37.5-25 Mg Tb (Triamterene/Hydrochlorothiazid) 1 Each Tablet 1 Tab PO DAILY 30 Days Hydralazine Hcl 25 Mg Tablet 25 Mg PO PRN TID PRN 30 Days For SBP > 150mmHg take as needed 3 times per day Amlodipine Besylate 10 Mg Tablet 10 Mg PO DAILY 30 Days Keppra (Levetiracetam) 500 Mg Tablet 500 Mg PO BID 30 Days Geodon (Ziprasidone Hcl) 20 Mg Capsule 20 Mg PO BID 30 Days Vitamin B-1 (Thiamine Mononitrate) 100 Mg Tablet 100 Mg PO DAILY 30 Days Reported Ranitidine Hcl 150 Mg Capsule 1 Cap PO BID Ativan (Lorazepam) 0.5 Mg Tablet 0.5 Mg PO PRN PRN Proair Hfa Inhaler (Albuterol Sulfate) 8.5 Gm Hfa.aer.ad 2 Puff IH PRN Q4-6HRS Allergies Allergies: Allergies Coded Allergies Type Severity Reaction Last Updated Verified Penicillins Allergy Intermediate N/V ITCH 03/30/18 Yes I S O L A T I O N *CONTACT* Allergy Unknown 03/29/18 Yes ROS Review of System The patient denies any associated fevers, chills, headache, ear pain, rhinorrhea , sore throat, stiff neck, productive cough, chest pain, shortness of breath, back or flank pain, abdominal pain, nausea, vomiting, diarrhea, constipation, dysuria, rash, numbness, weakness, tingling, incontinence, difficulty ambulating, or diaphoresis. Physical Exam Physical Exam General: Well developed, well nourished, no acute distress, well appearing HEENT: Pupils equally round and reactive to light, EOMI, no discharge, normal conjunctiva Neck: Supple, no nuchal rigidity, no JVD, trachea midline, no tenderness Cardiac: RRR, no murmurs, no gallops, no rubs Chest/Lungs: CTAB, no wheeze, no rhonchi, no crackles Abdomen: soft, non-distended, no guarding, no peritoneal signs, non-tender Back: No tenderness Extremities: no edema, pulses intact, non-tender,capillary refill <3 sec bilateral upper and lower extremities, Neuro: Alert and oriented x 4, no focal deficits, normal speech Vitals Vitals: Vital Signs Date Time Temp Pulse Resp B/P (MAP) Pulse Ox O2 Delivery O2 Flow Rate FiO2 09/28/18 15:16 97.7 80 17 144/93 (110) 95 Room Air 97.7 Labs Labs Laboratory Tests Test 09/28/18 01:30 09/28/18 01:43 White Blood Count 4.2 x10^3/uL (4.0-11.0) Red Blood Count 4.72 x10^6/uL (3.50-5.40) Hemoglobin 12.0 g/dL (12.0-15.5) Hematocrit 37.2 % (36.0-47.0) Mean Corpuscular Volume 79 fL (79-100) Mean Corpuscular Hemoglobin 25 pg (25-35) Mean Corpuscular Hemoglobin Concent 32 g/dL (31-37) Red Cell Distribution Width 15.6 % (11.5-14.5) Platelet Count 138 x10^3/uL (140-400) Neutrophils (%) (Auto) 54 % (31-73) Lymphocytes (%) (Auto) 33 % (24-48) Monocytes (%) (Auto) 11 % (0-9) Eosinophils (%) (Auto) 1 % (0-3) Basophils (%) (Auto) 1 % (0-3) Neutrophils # (Auto) 2.3 x10^3uL (1.8-7.7) Lymphocytes # (Auto) 1.4 x10^3/uL (1.0-4.8) Monocytes # (Auto) 0.4 x10^3/uL (0.0-1.1) Eosinophils # (Auto) 0.0 x10^3/uL (0.0-0.7) Basophils # (Auto) 0.0 x10^3/uL (0.0-0.2) Prothrombin Time 13.6 SEC (11.7-14.0) Prothromb Time International Ratio 1.1 (0.8-1.1) Activated Partial Thromboplast Time 51 SEC (24-38) Sodium Level 143 mmol/L (136-145) Potassium Level 3.7 mmol/L (3.5-5.1) Chloride Level 104 mmol/L (98-107) Carbon Dioxide Level 22 mmol/L (21-32) Anion Gap 17 (6-14) Blood Urea Nitrogen 38 mg/dL (7-20) Creatinine 2.0 mg/dL (0.6-1.0) Estimated GFR (Cockcroft-Gault) 30.4 BUN/Creatinine Ratio 19 (6-20) Glucose Level 107 mg/dL (70-99) Lactic Acid Level 0.8 mmol/L (0.4-2.0) Calcium Level 9.4 mg/dL (8.5-10.1) Magnesium Level 2.0 mg/dL (1.8-2.4) Total Bilirubin 0.3 mg/dL (0.2-1.0) Aspartate Amino Transf (AST/SGOT) 13 U/L (15-37) Alanine Aminotransferase (ALT/SGPT) 12 U/L (14-59) Alkaline Phosphatase 82 U/L (46-116) Ammonia < 10 mcmol/L (11-34) Creatine Kinase 350 U/L (26-192) Creatine Kinase MB (Mass) 0.9 ng/mL (0.0-3.6) Creatine Kinase MB Relative Index 0.3 % (0-4) Troponin I Quantitative 0.029 ng/mL (0.000-0.055) MH-Exi-S-Type Natriuretic Peptide 543 pg/mL (0-124) Total Protein 7.5 g/dL (6.4-8.2) Albumin 3.5 g/dL (3.4-5.0) Albumin/Globulin Ratio 0.9 (1.0-1.7) Ethyl Alcohol Level < 10 mg/dL (0-10) Urine Collection Type U cath Urine Color Yellow Urine Clarity Clear Urine pH 5.5 Urine Specific [place] 1.015 Urine Protein 30 mg/dL (NEG-TRACE) Urine Glucose (UA) Negative mg/dL (NEG) Urine Ketones (Stick) Trace mg/dL (NEG) Urine Blood Negative (NEG) Urine Nitrite Negative (NEG) Urine Bilirubin Negative (NEG) Urine Urobilinogen Dipstick 0.2 mg/dL (0.2 mg/dL) Urine Leukocyte Esterase Negative (NEG) Urine RBC Occ /HPF (0-2) Urine WBC Occ /HPF (0-4) Urine Squamous Epithelial Cells Occ /LPF Urine Bacteria 0 /HPF (0-FEW) Urine Hyaline Casts Few /HPF Urine Mucus Mod /LPF Urine Opiates Screen Pos (NEG) Urine Methadone Screen Neg (NEG) Urine Barbiturates Neg (NEG) Urine Phencyclidine Screen Neg (NEG) Urine Amphetamine/Methamphetamine Neg (NEG) Urine Benzodiazepines Screen Neg (NEG) Urine Cocaine Screen Neg (NEG) Urine Cannabinoids Screen Neg (NEG) Urine Ethyl Alcohol Neg (NEG) Laboratory Tests Test 09/28/18 01:30 09/28/18 01:43 White Blood Count 4.2 x10^3/uL (4.0-11.0) Red Blood Count 4.72 x10^6/uL (3.50-5.40) Hemoglobin 12.0 g/dL (12.0-15.5) Hematocrit 37.2 % (36.0-47.0) Mean Corpuscular Volume 79 fL (79-100) Mean Corpuscular Hemoglobin 25 pg (25-35) Mean Corpuscular Hemoglobin Concent 32 g/dL (31-37) Red Cell Distribution Width 15.6 % (11.5-14.5) Platelet Count 138 x10^3/uL (140-400) Neutrophils (%) (Auto) 54 % (31-73) Lymphocytes (%) (Auto) 33 % (24-48) Monocytes (%) (Auto) 11 % (0-9) Eosinophils (%) (Auto) 1 % (0-3) Basophils (%) (Auto) 1 % (0-3) Neutrophils # (Auto) 2.3 x10^3uL (1.8-7.7) Lymphocytes # (Auto) 1.4 x10^3/uL (1.0-4.8) Monocytes # (Auto) 0.4 x10^3/uL (0.0-1.1) Eosinophils # (Auto) 0.0 x10^3/uL (0.0-0.7) Basophils # (Auto) 0.0 x10^3/uL (0.0-0.2) Prothrombin Time 13.6 SEC (11.7-14.0) Prothromb Time International Ratio 1.1 (0.8-1.1) Activated Partial Thromboplast Time 51 SEC (24-38) Sodium Level 143 mmol/L (136-145) Potassium Level 3.7 mmol/L (3.5-5.1) Chloride Level 104 mmol/L (98-107) Carbon Dioxide Level 22 mmol/L (21-32) Anion Gap 17 (6-14) Blood Urea Nitrogen 38 mg/dL (7-20) Creatinine 2.0 mg/dL (0.6-1.0) Estimated GFR (Cockcroft-Gault) 30.4 BUN/Creatinine Ratio 19 (6-20) Glucose Level 107 mg/dL (70-99) Lactic Acid Level 0.8 mmol/L (0.4-2.0) Calcium Level 9.4 mg/dL (8.5-10.1) Magnesium Level 2.0 mg/dL (1.8-2.4) Total Bilirubin 0.3 mg/dL (0.2-1.0) Aspartate Amino Transf (AST/SGOT) 13 U/L (15-37) Alanine Aminotransferase (ALT/SGPT) 12 U/L (14-59) Alkaline Phosphatase 82 U/L (46-116) Ammonia < 10 mcmol/L (11-34) Creatine Kinase 350 U/L (26-192) Creatine Kinase MB (Mass) 0.9 ng/mL (0.0-3.6) Creatine Kinase MB Relative Index 0.3 % (0-4) Troponin I Quantitative 0.029 ng/mL (0.000-0.055) EL-Nag-T-Type Natriuretic Peptide 543 pg/mL (0-124) Total Protein 7.5 g/dL (6.4-8.2) Albumin 3.5 g/dL (3.4-5.0) Albumin/Globulin Ratio 0.9 (1.0-1.7) Ethyl Alcohol Level < 10 mg/dL (0-10) Urine Collection Type U cath Urine Color Yellow Urine Clarity Clear Urine pH 5.5 Urine Specific [place] 1.015 Urine Protein 30 mg/dL (NEG-TRACE) Urine Glucose (UA) Negative mg/dL (NEG) Urine Ketones (Stick) Trace mg/dL (NEG) Urine Blood Negative (NEG) Urine Nitrite Negative (NEG) Urine Bilirubin Negative (NEG) Urine Urobilinogen Dipstick 0.2 mg/dL (0.2 mg/dL) Urine Leukocyte Esterase Negative (NEG) Urine RBC Occ /HPF (0-2) Urine WBC Occ /HPF (0-4) Urine Squamous Epithelial Cells Occ /LPF Urine Bacteria 0 /HPF (0-FEW) Urine Hyaline Casts Few /HPF Urine Mucus Mod /LPF Urine Opiates Screen Pos (NEG) Urine Methadone Screen Neg (NEG) Urine Barbiturates Neg (NEG) Urine Phencyclidine Screen Neg (NEG) Urine Amphetamine/Methamphetamine Neg (NEG) Urine Benzodiazepines Screen Neg (NEG) Urine Cocaine Screen Neg (NEG) Urine Cannabinoids Screen Neg (NEG) Urine Ethyl Alcohol Neg (NEG) PETER TORRES MD Sep 28, 2018 19:23
[2018-09-28] MEDS: ATORVASTATIN CALCIUM 10 MG TABLET. PO SCH (20:35)
[2018-09-28 23:41] VITALS: BP 135/74
[2018-09-29 03:15] VITALS: BP 91/58
[2018-09-29] MEDS: IV RINGERS,LACTATED 1000ML 1,000 ML IV SCH ×3 (05:38→21:20)
[2018-09-29 07:00] VITALS: BP 121/76
--- NOTE | 2018-09-29 08:01 | PDOC ---
PROGRESS NOTES Chief Complaint Chief Complaint A/P: Metabolic encephalopathy - with underlying h/o brain aneurysm and bipolar depression with psychosis - geodon and prn lorazepam - previously was metabolic and toxic, now appears to be a psychosis H/o Seizures, provoked by cocaine with h/o aneurysm - keppra and thiamine, neuro f/u in 4-6 weeks Bibasilar infiltrates - treated for HCAP with levaquin. These had resolved on CXR on 09/27/18 JOSE G - Cr jumped to 2, likely this is vasomotor, will give IVF Cocaine use/abuse likely - counseled Hx of brain aneurysm - ?s/p clipping at [facility] DM oral meds and insulin HTN - needs better control HLD - LDL is 199, needs 80mg atorvastatin or 40mg rosuvastatin FEN - ADA diet PPX - lovenox FULL CODE Inpatient for acute encephalopathy that is recurrent, likely related to primary psychiatric disorder. 1-1 sitter Needs to work with PT/OT - only wants home health Needs geriatric psych with her h/o seizures and sundowning in the future Sister is her nearest next of kin - d/w her need for skilled svcs on d/c History of Present Illness History of Present Illness 62 y/o female presents via EMS with report of continued "confusion". Patient has been run by EMS "several times" in the last 2 days for this confusion. Patient apparently lives with her elderly mother. The mother called 911 today due to being "unable to control" the patient. Patient reports she thinks she is at "[facility]" and it is 330PM and the year is "2003". Patient denies other complaint. EMS was able to walk in with patient, as she refused to lay on the gurney. EMS denies known trauma. No history of fever. Patient reports she wasn't to leave because her "family is waiting in the waiting room for me." Patient seen earlier today at [place] in the ED per [facility] review for same. Patient was found walking around in the snow outside her home. Patient apparently has a long history of altered mental status with report of probable dementia and sundowning per chart review. Plan upon discharge from ED earlier today was to trial home care with prescriptions for Geodon per me last visit. Family told EMS that patient was "not able to be controlled". Was walking the unit yesterday despite 1-1, pulled out her IV. She is working with PT, asking to rest. She is more calm today, still believes she is at [facility]. Plan: As above, BP control, 1-1 codyterMarychuy Vitals Vitals Vital Signs Date Time Temp Pulse Resp B/P (MAP) Pulse Ox O2 Delivery O2 Flow Rate FiO2 09/29/18 07:00 97.5 67 16 121/76 (91) 100 Room Air 97.5 Physical Exam General: Alert, Cooperative, No acute distress Lungs: Clear Abdomen: Normal bowel sounds, Soft, No tenderness, No hepatosplenomegaly, No masses Extremities: No clubbing, No cyanosis, No edema, Normal pulses, No tenderness/ swelling Skin: No rashes, No breakdown, No significant lesion Assessment and Plan Assessmemt and Plan Problems Medical Problems: (1) Acute on chronic renal insufficiency Status: Acute (2) At risk for elder neglect Status: Acute Comment Review of Relevant I have reviewed the following items remi (where applicable) has been applied. Labs Laboratory Tests Test 09/28/18 01:30 09/28/18 01:43 White Blood Count 4.2 x10^3/uL (4.0-11.0) Red Blood Count 4.72 x10^6/uL (3.50-5.40) Hemoglobin 12.0 g/dL (12.0-15.5) Hematocrit 37.2 % (36.0-47.0) Mean Corpuscular Volume 79 fL (79-100) Mean Corpuscular Hemoglobin 25 pg (25-35) Mean Corpuscular Hemoglobin Concent 32 g/dL (31-37) Red Cell Distribution Width 15.6 % (11.5-14.5) Platelet Count 138 x10^3/uL (140-400) Neutrophils (%) (Auto) 54 % (31-73) Lymphocytes (%) (Auto) 33 % (24-48) Monocytes (%) (Auto) 11 % (0-9) Eosinophils (%) (Auto) 1 % (0-3) Basophils (%) (Auto) 1 % (0-3) Neutrophils # (Auto) 2.3 x10^3uL (1.8-7.7) Lymphocytes # (Auto) 1.4 x10^3/uL (1.0-4.8) Monocytes # (Auto) 0.4 x10^3/uL (0.0-1.1) Eosinophils # (Auto) 0.0 x10^3/uL (0.0-0.7) Basophils # (Auto) 0.0 x10^3/uL (0.0-0.2) Prothrombin Time 13.6 SEC (11.7-14.0) Prothromb Time International Ratio 1.1 (0.8-1.1) Activated Partial Thromboplast Time 51 SEC (24-38) Sodium Level 143 mmol/L (136-145) Potassium Level 3.7 mmol/L (3.5-5.1) Chloride Level 104 mmol/L (98-107) Carbon Dioxide Level 22 mmol/L (21-32) Anion Gap 17 (6-14) Blood Urea Nitrogen 38 mg/dL (7-20) Creatinine 2.0 mg/dL (0.6-1.0) Estimated GFR (Cockcroft-Gault) 30.4 BUN/Creatinine Ratio 19 (6-20) Glucose Level 107 mg/dL (70-99) Lactic Acid Level 0.8 mmol/L (0.4-2.0) Calcium Level 9.4 mg/dL (8.5-10.1) Magnesium Level 2.0 mg/dL (1.8-2.4) Total Bilirubin 0.3 mg/dL (0.2-1.0) Aspartate Amino Transf (AST/SGOT) 13 U/L (15-37) Alanine Aminotransferase (ALT/SGPT) 12 U/L (14-59) Alkaline Phosphatase 82 U/L (46-116) Ammonia < 10 mcmol/L (11-34) Creatine Kinase 350 U/L (26-192) Creatine Kinase MB (Mass) 0.9 ng/mL (0.0-3.6) Creatine Kinase MB Relative Index 0.3 % (0-4) Troponin I Quantitative 0.029 ng/mL (0.000-0.055) TR-Jwg-M-Type Natriuretic Peptide 543 pg/mL (0-124) Total Protein 7.5 g/dL (6.4-8.2) Albumin 3.5 g/dL (3.4-5.0) Albumin/Globulin Ratio 0.9 (1.0-1.7) Ethyl Alcohol Level < 10 mg/dL (0-10) Urine Collection Type U cath Urine Color Yellow Urine Clarity Clear Urine pH 5.5 Urine Specific [place] 1.015 Urine Protein 30 mg/dL (NEG-TRACE) Urine Glucose (UA) Negative mg/dL (NEG) Urine Ketones (Stick) Trace mg/dL (NEG) Urine Blood Negative (NEG) Urine Nitrite Negative (NEG) Urine Bilirubin Negative (NEG) Urine Urobilinogen Dipstick 0.2 mg/dL (0.2 mg/dL) Urine Leukocyte Esterase Negative (NEG) Urine RBC Occ /HPF (0-2) Urine WBC Occ /HPF (0-4) Urine Squamous Epithelial Cells Occ /LPF Urine Bacteria 0 /HPF (0-FEW) Urine Hyaline Casts Few /HPF Urine Mucus Mod /LPF Urine Opiates Screen Pos (NEG) Urine Methadone Screen Neg (NEG) Urine Barbiturates Neg (NEG) Urine Phencyclidine Screen Neg (NEG) Urine Amphetamine/Methamphetamine Neg (NEG) Urine Benzodiazepines Screen Neg (NEG) Urine Cocaine Screen Neg (NEG) Urine Cannabinoids Screen Neg (NEG) Urine Ethyl Alcohol Neg (NEG) Medications Current Medications Ziprasidone (Geodon Im) 20 mg 1X ONCE IM Last administered on 09/27/18at 23:45 ; Start 09/27/18 at 23:45; Stop 09/27/18 at 23:46; Status DC Ziprasidone (Geodon Im) 20 mg STK-MED ONCE IM ; Start 09/27/18 at 23:40; Stop at 23:41; Status DC Lorazepam (Ativan) 2 mg 1X ONCE IM Last administered on 09/28/18at 00:05; Start 09/28/18 at 00:00; Stop 09/28/18 at 00:01; Status DC Lorazepam (Ativan) 2 mg STK-MED ONCE .ROUTE ; Start 09/27/18 at 23:59; Stop at 00:00; Status DC Sodium Chloride 1,000 ml @ 1,000 mls/hr 1X ONCE IV Last administered on at 03:00; Start 09/28/18 at 03:00; Stop 09/28/18 at 03:59; Status DC Ringer's Solution 1,000 ml @ 125 mls/hr Q8H IV Last administered on 2/21/19at 09:09; Start 09/28/18 at 09:00 Amlodipine Besylate (Norvasc) 10 mg DAILY PO Last administered on 09/28/18 12: 53; Start 09/28/18 at 13:00 Cyanocobalamin (Vitamin B-12) 1,000 mcg DAILY PO Last administered on 12:52; Start 09/28/18 at 13:00 Levetiracetam (Keppra) 500 mg BID PO Last administered on 09/28/18 20:35; Start 09/28/18 at 13:00 Lorazepam (Ativan) 0.5 mg TID PRN PRN PO ANXIETY / AGITATION Last administered on 09/28/18 20:35; Start 09/28/18 at 12:30 Triamterene/HCTZ (Maxzide 37.5/ 25mg) 1 tab DAILY PO Last administered on 12:52; Start 09/28/18 at 13:00; Stop 09/28/18 at 15:50; Status DC Hydralazine HCl (Apresoline) 25 mg PRN TID PRN PO HYPERTENSION, SEE COMMENTS; Start 09/28/18 at 12:30 Famotidine (Pepcid) 20 mg DAILY PO Last administered on 09/28/18 12:52; Start 09/28/18 at 13:00 Thiamine Mononitrate (Vitamin B-1) 100 mg DAILY PO Last administered on 12:52; Start 09/28/18 at 13:00 Ziprasidone (Geodon) 20 mg BID PO Last administered on 09/28/18 20:35; Start 09/28/18 at 12:45 Albuterol Sulfate (Ventolin Neb Soln) 2.5 mg PRN Q6HRS PRN NEB SHORTNESS OF BREATH; Start 09/28/18 at 12:45 Atorvastatin Calcium (Lipitor) 10 mg QHS PO Last administered on 09/28/18 20: 35; Start 09/28/18 at 21:00 Active Scripts Active Geodon (Ziprasidone Hcl) 20 Mg Capsule 1 Cap PO BID Vitamin B-12 (Cyanocobalamin (Vitamin B-12)) 1,000 Mcg Tablet 1,000 Mcg PO DAILY 30 Days Levaquin (Levofloxacin) 500 Mg Tablet 500 Mg PO DAILY16 3 Days Triamterene-Hctz 37.5-25 Mg Tb (Triamterene/Hydrochlorothiazid) 1 Each Tablet 1 Tab PO DAILY 30 Days Hydralazine Hcl 25 Mg Tablet 25 Mg PO PRN TID PRN 30 Days For SBP > 150mmHg take as needed 3 times per day Amlodipine Besylate 10 Mg Tablet 10 Mg PO DAILY 30 Days Keppra (Levetiracetam) 500 Mg Tablet 500 Mg PO BID 30 Days Geodon (Ziprasidone Hcl) 20 Mg Capsule 20 Mg PO BID 30 Days Vitamin B-1 (Thiamine Mononitrate) 100 Mg Tablet 100 Mg PO DAILY 30 Days Reported Ranitidine Hcl 150 Mg Capsule 1 Cap PO BID Ativan (Lorazepam) 0.5 Mg Tablet 0.5 Mg PO PRN PRN Proair Hfa Inhaler (Albuterol Sulfate) 8.5 Gm Hfa.aer.ad 2 Puff IH PRN Q4-6HRS Vitals/I & O Vital Sign - Last 24 Hours 09/28/18 09/28/18 09/28/18 09/28/18 08:00 11:00 11:19 12:53 Temp 96.5 96.5 Pulse 67 67 Resp 16 B/P (MAP) 126/74 (91) 126/74 Pulse Ox 98 O2 Delivery Room Air Room Air Room Air 09/28/18 09/28/18 09/28/18 09/28/18 15:16 19:18 20:00 23:41 Temp 97.7 98.1 98.0 97.7 98.1 98.0 Pulse 80 83 65 Resp 17 20 18 B/P (MAP) 144/93 (110) 145/83 (103) 135/74 (94) Pulse Ox 95 92 95 O2 Delivery Room Air Room Air Room Air Room Air 09/29/18 09/29/18 03:15 07:00 Temp 97.3 97.5 97.3 97.5 Pulse 61 67 Resp 18 16 B/P (MAP) 91/58 (69) 121/76 (91) Pulse Ox 96 100 O2 Delivery Room Air Room Air Intake and Output 09/28/18 09/28/18 09/29/18 15:00 23:00 07:00 Intake Total 790 ml 400 ml 50 ml Output Total 650 ml 400 ml 300 ml Balance 140 ml 0 ml -250 ml RIFFEL,ADRIENNE Orat MD Sep 29, 2018 08:01
[2018-09-29] MEDS: amLODIPine BESYLATE 10 MG TABLET PO SCH (08:43)
[2018-09-29] MEDS: LORazepam 0.5 MG TABLET PO PRN ×3 (08:43→21:17)
[2018-09-29] MEDS: ZIPRASIDONE 20 MG CAPSULE PO SCH ×2 (08:43→21:17)
[2018-09-29] MEDS: CYANOCOBALAMIN (VITAMIN B-12) 1,000 MCG TABLET. PO SCH (08:43)
[2018-09-29] MEDS: levETIRAcetam 500 MG TABLET PO SCH ×2 (08:43→21:17)
[2018-09-29] MEDS: THIAMINE 100 MG TABLET. PO SCH (08:43)
[2018-09-29] MEDS: FAMOTIDINE 20 MG TABLET. PO SCH (08:43)
--- NOTE | 2018-09-29 09:23 | NUR ---
NICOL following pt. SW phoned and faxed referral to [facility], [facility] and [facility]. Pt's daughter reported she does not want her mother to go to a facility that is far. Pt admission and acceptance pending. Will continue to follow.
[2018-09-29 11:03] VITALS: BP 144/86
--- NOTE | 2018-09-29 12:11 | EEG ---
DATE OF SERVICE: 09/29/2018 EEG NUMBER: [id number]. OBJECTIVE: This is a 62-year-old -Romanian female patient with history of seizure. She had a seizure for this admission. EEG was requested to evaluate seizure activity. METHODS: Twenty electrodes were applied according to the international 10-20 electrode placement system. EKG monitoring, hyperventilation, intermittent photic stimulation, monopolar and bipolar montages are routinely utilized. The record was obtained on a digital system with video monitoring. MEDICATIONS: Keppra. FINDINGS: 1. Background: The patient was recorded in the awake and drowsy states. No actual sleep state was recorded. The overall background amplitude is 5-15 microvolts. A posterior dominant rhythm of 8 Hz is observed. 2. Abnormalities: No specific epileptiform discharge or electrographic seizure is seen. No focal or diffuse slowing. Artifact noted at right hemispheric area due to focalized surface thick curly hair. 3. Activation: Hyperventilation was performed with poor efforts. Intermittent photic stimulation was performed with photic driving. IMPRESSION: This EEG is a borderline study for the awake and drowsy states. No actual sleep state was recorded. There are frequent artifacts at right hemispherical area. No post-abnormal cerebral activity followed artifact. No focal, lateralizing, specific epileptiform discharge or electrographic seizure is seen. PETER TORRES MD DR: PARKER/syed JOB#: [id number] / [id number] ALIRIO
[2018-09-29] MEDS ORDERED: ONDANSETRON ODT 4 MG TAB.RAPDIS. PO PRN (13:45)
--- NOTE | 2018-09-29 13:55 | PDOC ---
PROGRESS NOTES Assessment Assessment Seizure. Metabolic encephalopathy. Confusion. Renal failure. HLD. Opiate positive. RECOMMENDATIONS/PLAN: Continue Keppra 500 mg bid. May increase to 750 mg bid if has more seizures. Treat medical diseases. OT/PT. FU with PCP. Her HCT on 09/23/18 was no acute findings. EEG on 09/29/18: No seizure activity. Artifact noted. HISTORY OF THE PRESENT ILLNESS: 62-y-old AA female patient with history of seizure and has been treated with Keppra per docu. She has been having symptoms of mental status changes and confusion in the past a couple of days. She said she had a seizure on 09/27/18 and had 3 seizures this month. presents via EMS with report of continued "confusion". Patient has been run by EMS "several times" in the last 2 days for this confusion. Patient apparently lives with her elderly mother. The mother called 911 today due to being "unable to control" the patient. No seizures reported since here. Past Medical History Cardiovascular: HTN Pulmonary: Asthma CENTRAL NERVOUS SYSTEM: Seizure, Other GI: GERD Endocrine: Diabetes Past Surgical History No information is available. Family History No Significant Social History ALCOHOL: none Drugs: None Lives at home with her mother and daughter. Allergies Coded Allergies: Penicillins (Verified Allergy, Intermediate, N/V ITCH, 03/30/18) I S O L A T I O N *CONTACT* (Verified Allergy, Unknown, 03/29/18) carbapenem resistant PSA REVIEW OF SYSTEMS: Constitutional: No malnutrition, weight loss, cachexia. Head: No traumatic brain or head injury. Skin: No edema, or rash. Ear: No infection. Eyes: No vision loss or color blindness. Nose: No bleeding or purulent discharges. Hearing: No hearing decrease. Neck: No injury. Breast: No history of cancer, masses,or discharges. Cardiac: HLD. Pulmonary: No COPD. GI: No GI ulcer, GI bleeding. Urinary/genital: UTI. Endocrinologic: No cousin face, craniofacial dysmorphism, polydactyly. Skeletomuscular: No muscular atrophy, deformity. Neurological: see HP. Psychiatric: Denies drug use/abuse. Otherwise, not [id number] review of systems. PHYSICAL EXAMINATION: General appearance is in no acute distress. HEENT: Normocephalic and nontraumatic. Eyes, nose, ears, and throat are unremarkable. Neck is supple. No lymphadenopathy. No crepitus. Cardiovascular: S1, S2, regular rate and rhythm. Pulmonary: Clear to auscultation bilaterally. Abdomen: Bowel sounds are positive. Extremities: No rash, lesions, or edema. No restriction of range of motion NEUROLOGICAL EXAMINATION: Awake. Partially oriented to time, and knew place and person. PERRL. EOMI. CN: no focal findings. Muscle tone: within normal. Muscle strength: 5- DTR: 2- Plantar reflex: Flexor response bilaterally Gait: not examined in bed. Sensory exam: no abnormal findings. No cerebellar signs elicited. F-T-N test fine. Objective Objective Vital Signs Date Time Temp Pulse Resp B/P (MAP) Pulse Ox O2 Delivery O2 Flow Rate FiO2 09/29/18 11:03 97.5 78 18 144/86 (105) 97 Room Air 97.5 Intake and Output 09/29/18 07:00 Intake Total 1240 ml Output Total 1350 ml Balance -110 ml Intake Oral 690 ml IV Total 550 ml Output Urine Total 1350 ml # Voids 1 Vitals Signs Vitals VS - Last 72 Hours, by Label Date Time Temp Pulse Resp B/P (MAP) Pulse Ox O2 Delivery O2 Flow Rate FiO2 09/29/18 11:03 97.5 78 18 144/86 (105) 97 Room Air 97.5 09/29/18 08:43 67 121/76 09/29/18 08:00 Room Air 09/29/18 07:00 97.5 67 16 121/76 (91) 100 Room Air 97.5 09/29/18 03:15 97.3 61 18 91/58 (69) 96 Room Air 97.3 09/28/18 23:41 98.0 65 18 135/74 (94) 95 Room Air 98.0 09/28/18 20:00 Room Air 09/28/18 19:18 98.1 83 20 145/83 (103) 92 Room Air 98.1 09/28/18 15:16 97.7 80 17 144/93 (110) 95 Room Air 97.7 09/28/18 12:53 67 126/74 09/28/18 11:19 Room Air 09/28/18 11:00 96.5 67 16 126/74 (91) 98 Room Air 96.5 09/28/18 08:00 Room Air 09/28/18 07:00 97.5 63 16 94/54 (67) 94 Room Air 97.5 Medication Medications Current Medications Atorvastatin Calcium (Lipitor) 10 mg QHS PO Last administered on 09/28/18at 20: 35; Start 09/28/18 at 21:00 Ondansetron HCl (Zofran Odt) 4 mg PRN Q6HRS PRN PO NAUSEA/VOMITING; Start 09/29 at 13:45 Comment Review of Relevant I have reviewed the following items remi (where applicable) has been applied. PETER TORRES MD Sep 29, 2018 13:55
[2018-09-29] MEDS: ACETAMINOPHEN 500 MG TABLET PO PRN (14:01)
--- NOTE | 2018-09-29 15:23 | NUR ---
SW following pt. [facility] declined pt as pt did not meet criteria for inpatient psych placement. [facility] to take pt. Sera from [facility] will come in to see pt tomorrow. Spoke with Mary at [facility] and rehab. They are able to take pt after she has three midnights. Pt will need two more midnight before dc to SNU. [facility] will take pt if family can provide DPOA paper, Medicaid application and copy of bank statements. Spoke with Daughter and she reported she is bringing Medicaid application to hospital. Discussed with pt's mother, Rhonda via phone regarding plans. Discussed with Physician and RN.
[2018-09-29 15:58] VITALS: BP 111/78
[2018-09-29 19:00] VITALS: BP 137/4
[2018-09-29] MEDS: ATORVASTATIN CALCIUM 10 MG TABLET. PO SCH (21:17)
[2018-09-29 23:00] VITALS: BP 112/78
[2018-09-30 07:00] VITALS: BP 114/64
[2018-09-30] MEDS: IV RINGERS,LACTATED 1000ML 1,000 ML IV SCH (07:00)
[2018-09-30] MEDS: FAMOTIDINE 20 MG TABLET. PO SCH (07:45)
[2018-09-30] MEDS: CYANOCOBALAMIN (VITAMIN B-12) 1,000 MCG TABLET. PO SCH (07:45)
[2018-09-30] MEDS: ZIPRASIDONE 20 MG CAPSULE PO SCH ×2 (07:45→19:56)
[2018-09-30] MEDS: THIAMINE 100 MG TABLET. PO SCH (07:45)
[2018-09-30] MEDS: amLODIPine BESYLATE 10 MG TABLET PO SCH (07:45)
[2018-09-30] MEDS: levETIRAcetam 500 MG TABLET PO SCH ×2 (07:45→19:56)
[2018-09-30 11:00] VITALS: BP 108/64
[2018-09-30] MEDS: DICLOFENAC SODIUM 1% TOPICAL GEL 100GM TUBE. TP SCH ×2 (12:47→19:57)
--- NOTE | 2018-09-30 13:30 | PDOC ---
PROGRESS NOTES Chief Complaint Chief Complaint A/P: Metabolic encephalopathy - with underlying h/o brain aneurysm and bipolar depression with psychosis - geodon and prn lorazepam - previously was metabolic and toxic, now appears to be a psychosis H/o Seizures, provoked by cocaine with h/o aneurysm - keppra and thiamine, neuro f/u in 4-6 weeks Bibasilar infiltrates - treated for HCAP with levaquin. These had resolved on CXR on 09/27/18 JOSE G - Cr jumped to 2, likely this is vasomotor, cont IVF Cocaine use/abuse likely - counseled Hx of brain aneurysm - ?s/p clipping at [facility] DM oral meds and insulin HTN - needs better control HLD - LDL is 199, needs 80mg atorvastatin or 40mg rosuvastatin FEN - ADA diet PPX - lovenox FULL CODE Inpatient for acute encephalopathy that is recurrent, likely related to primary psychiatric disorder. 1-1 sitter Needs to work with PT/OT - only wants home health Needs geriatric psych with her h/o seizures and sundowning in the future Sister is her nearest next of kin - d/w her need for skilled svcs on d/c History of Present Illness History of Present Illness 62 y/o female presents via EMS with report of continued "confusion". Patient has been run by EMS "several times" in the last 2 days for this confusion. Patient apparently lives with her elderly mother. The mother called 911 today due to being "unable to control" the patient. Patient reports she thinks she is at "[facility]" and it is 330PM and the year is "2003". Patient denies other complaint. EMS was able to walk in with patient, as she refused to lay on the gurney. EMS denies known trauma. No history of fever. Patient reports she wasn't to leave because her "family is waiting in the waiting room for me." Patient seen earlier today at [place] in the ED per [facility] review for same. Patient was found walking around in the snow outside her home. Patient apparently has a long history of altered mental status with report of probable dementia and sundowning per chart review. Plan upon discharge from ED earlier today was to trial home care with prescriptions for Geodon per me last visit. Family told EMS that patient was "not able to be controlled". 09/29: Was walking the unit despite 1-1, pulled out her IV. She is working with PT, asking to rest. She is more calm today, still believes she is at [facility]. Today she is more calm. C/o bilateral knee pain. Does not want to get out of bed. No BM today. No CP or SOB Plan: Voltaren gel to knees. Check BMP As above, BP control, 1-1 sitter, Geodon IM Vitals Vitals Vital Signs Date Time Temp Pulse Resp B/P (MAP) Pulse Ox O2 Delivery O2 Flow Rate FiO2 09/30/18 11:00 97.7 63 16 108/64 (79) 98 Room Air 97.7 Physical Exam General: Alert, Cooperative, No acute distress Lungs: Clear Abdomen: Normal bowel sounds, Soft, No tenderness, No hepatosplenomegaly, No masses Extremities: No clubbing, No cyanosis, No edema, Normal pulses, No tenderness/ swelling Skin: No rashes, No breakdown, No significant lesion Assessment and Plan Assessmemt and Plan Problems Medical Problems: (1) Acute on chronic renal insufficiency Status: Acute (2) At risk for elder neglect Status: Acute Comment Review of Relevant I have reviewed the following items reim (where applicable) has been applied. Medications Current Medications Ziprasidone (Geodon Im) 20 mg 1X ONCE IM Last administered on 09/27/18at 23:45 ; Start 09/27/18 at 23:45; Stop 09/27/18 at 23:46; Status DC Ziprasidone (Geodon Im) 20 mg STK-MED ONCE IM ; Start 09/27/18 at 23:40; Stop at 23:41; Status DC Lorazepam (Ativan) 2 mg 1X ONCE IM Last administered on 09/28/18at 00:05; Start 09/28/18 at 00:00; Stop 09/28/18 at 00:01; Status DC Lorazepam (Ativan) 2 mg STK-MED ONCE .ROUTE ; Start 09/27/18 at 23:59; Stop at 00:00; Status DC Sodium Chloride 1,000 ml @ 1,000 mls/hr 1X ONCE IV Last administered on at 03:00; Start 09/28/18 at 03:00; Stop 09/28/18 at 03:59; Status DC Ringer's Solution 1,000 ml @ 125 mls/hr Q8H IV Last administered on 09/28/18 09:09; Start 09/28/18 at 09:00 Amlodipine Besylate (Norvasc) 10 mg DAILY PO Last administered on 09/30/18 07: 45; Start 09/28/18 at 13:00 Cyanocobalamin (Vitamin B-12) 1,000 mcg DAILY PO Last administered on 07:45; Start 09/28/18 at 13:00 Levetiracetam (Keppra) 500 mg BID PO Last administered on 09/30/18 07:45; Start 09/28/18 at 13:00 Lorazepam (Ativan) 0.5 mg TID PRN PRN PO ANXIETY / AGITATION Last administered on 09/29/18 21:17; Start 09/28/18 at 12:30 Triamterene/HCTZ (Maxzide 37.5/ 25mg) 1 tab DAILY PO Last administered on 12:52; Start 09/28/18 at 13:00; Stop 09/28/18 at 15:50; Status DC Hydralazine HCl (Apresoline) 25 mg PRN TID PRN PO HYPERTENSION, SEE COMMENTS; Start 09/28/18 at 12:30 Famotidine (Pepcid) 20 mg DAILY PO Last administered on 09/30/18 07:45; Start 09/28/18 at 13:00 Thiamine Mononitrate (Vitamin B-1) 100 mg DAILY PO Last administered on 07:45; Start 09/28/18 at 13:00 Ziprasidone (Geodon) 20 mg BID PO Last administered on 09/30/18 07:45; Start 09/28/18 at 12:45 Albuterol Sulfate (Ventolin Neb Soln) 2.5 mg PRN Q6HRS PRN NEB SHORTNESS OF BREATH; Start 09/28/18 at 12:45 Atorvastatin Calcium (Lipitor) 10 mg QHS PO Last administered on 09/29/18 21: 17; Start 09/28/18 at 21:00 Ondansetron HCl (Zofran Odt) 4 mg PRN Q6HRS PRN PO NAUSEA/VOMITING Last administered on 2/22/19at 13:59; Start 09/29/18 at 13:45 Acetaminophen (Tylenol) 500 mg PRN Q6HRS PRN PO MILD PAIN / TEMP Last administered on 09/29/18at 14:01; Start 09/29/18 at 14:00 Diclofenac Sodium (Voltaren) 1 nirav BID TP Last administered on 09/30/18at 12:47 ; Start 09/30/18 at 13:00 Active Scripts Active Geodon (Ziprasidone Hcl) 20 Mg Capsule 1 Cap PO BID Vitamin B-12 (Cyanocobalamin (Vitamin B-12)) 1,000 Mcg Tablet 1,000 Mcg PO DAILY 30 Days Levaquin (Levofloxacin) 500 Mg Tablet 500 Mg PO DAILY16 3 Days Triamterene-Hctz 37.5-25 Mg Tb (Triamterene/Hydrochlorothiazid) 1 Each Tablet 1 Tab PO DAILY 30 Days Hydralazine Hcl 25 Mg Tablet 25 Mg PO PRN TID PRN 30 Days For SBP > 150mmHg take as needed 3 times per day Amlodipine Besylate 10 Mg Tablet 10 Mg PO DAILY 30 Days Keppra (Levetiracetam) 500 Mg Tablet 500 Mg PO BID 30 Days Geodon (Ziprasidone Hcl) 20 Mg Capsule 20 Mg PO BID 30 Days Vitamin B-1 (Thiamine Mononitrate) 100 Mg Tablet 100 Mg PO DAILY 30 Days Reported Ranitidine Hcl 150 Mg Capsule 1 Cap PO BID Ativan (Lorazepam) 0.5 Mg Tablet 0.5 Mg PO PRN PRN Proair Hfa Inhaler (Albuterol Sulfate) 8.5 Gm Hfa.aer.ad 2 Puff IH PRN Q4-6HRS Vitals/I & O Vital Sign - Last 24 Hours 09/29/18 09/29/18 09/29/18 09/29/18 15:58 19:00 20:05 23:00 Temp 97.4 98.2 97.8 97.4 98.2 97.8 Pulse 77 91 71 Resp 18 18 18 B/P (MAP) 111/78 (89) 137/4 (48) 112/78 (89) Pulse Ox 96 99 98 O2 Delivery Room Air Room Air Room Air Room Air 09/30/18 09/30/18 09/30/18 09/30/18 07:00 07:12 07:45 11:00 Temp 97.5 97.7 97.5 97.7 Pulse 60 60 63 Resp 16 16 B/P (MAP) 114/64 (81) 114/64 108/64 (79) Pulse Ox 99 98 O2 Delivery Room Air Room Air Room Air Intake and Output 09/29/18 09/29/18 09/30/18 14:59 22:59 06:59 Intake Total 320 ml 200 ml 200 ml Output Total 300 ml 150 ml Balance 20 ml 200 ml 50 ml ADRIENNE BEAL MD Sep 30, 2018 13:30
[2018-09-30 15:00] VITALS: BP 107/73
[2018-09-30 19:00] VITALS: BP 134/80
[2018-09-30] MEDS: LORazepam 0.5 MG TABLET PO PRN (19:56)
[2018-09-30] MEDS: ATORVASTATIN CALCIUM 10 MG TABLET. PO SCH (19:56)
[2018-09-30 23:00] VITALS: BP 131/83
[2018-10-01] MEDS: IV RINGERS,LACTATED 1000ML 1,000 ML IV SCH ×2 (01:56→09:00)
[2018-10-01 03:00] VITALS: BP 132/75
[2018-10-01 07:00] VITALS: BP 108/68
[2018-10-01] MEDS: ZIPRASIDONE 20 MG CAPSULE PO SCH ×2 (08:14→20:17)
[2018-10-01] MEDS: levETIRAcetam 500 MG TABLET PO SCH ×2 (08:15→20:17)
[2018-10-01] MEDS: THIAMINE 100 MG TABLET. PO SCH (08:15)
[2018-10-01] MEDS: FAMOTIDINE 20 MG TABLET. PO SCH (08:15)
[2018-10-01] MEDS: amLODIPine BESYLATE 10 MG TABLET PO SCH (08:15)
[2018-10-01] MEDS: CYANOCOBALAMIN (VITAMIN B-12) 1,000 MCG TABLET. PO SCH (08:15)
[2018-10-01] MEDS: DICLOFENAC SODIUM 1% TOPICAL GEL 100GM TUBE. TP SCH ×2 (08:16→20:17)
--- NOTE | 2018-10-01 08:28 | PDOC ---
PROGRESS NOTES Chief Complaint Chief Complaint A/P: Metabolic encephalopathy - with underlying h/o brain aneurysm and bipolar depression with psychosis - geodon and prn lorazepam - previously was metabolic and toxic, now appears to be a psychosis H/o Seizures, provoked by cocaine with h/o aneurysm - keppra and thiamine, neuro f/u in 4-6 weeks Bibasilar infiltrates - treated for HCAP with levaquin. These had resolved on CXR on 09/27/18 JOSE G - Cr jumped to 2, likely this is vasomotor, cont IVF Cocaine use/abuse likely - counseled Hx of brain aneurysm - ?s/p clipping at [facility] DM oral meds and insulin HTN - needs better control HLD - LDL is 199, needs 80mg atorvastatin or 40mg rosuvastatin FEN - ADA diet PPX - lovenox FULL CODE Inpatient for acute encephalopathy that is recurrent, likely related to primary psychiatric disorder. 1-1 sitter Needs to work with PT/OT - only wants home health Needs geriatric psych with her h/o seizures and sundowning in the future Sister is her nearest next of kin - d/w her need for skilled svcs on d/c History of Present Illness History of Present Illness 62 y/o female presents via EMS with report of continued "confusion". Patient has been run by EMS "several times" in the last 2 days for this confusion. Patient apparently lives with her elderly mother. The mother called 911 today due to being "unable to control" the patient. Patient reports she thinks she is at "[facility]" and it is 330PM and the year is "2003". Patient denies other complaint. EMS was able to walk in with patient, as she refused to lay on the gurney. EMS denies known trauma. No history of fever. Patient reports she wasn't to leave because her "family is waiting in the waiting room for me." Patient seen earlier today at [facility] in the ED per [facility] review for same. Patient was found walking around in the snow outside her home. Patient apparently has a long history of altered mental status with report of probable dementia and sundowning per chart review. Plan upon discharge from ED earlier today was to trial home care with prescriptions for Geodon per me last visit. Family told EMS that patient was "not able to be controlled". 09/29: Was walking the unit despite 1-1, pulled out her IV. She is working with PT, asking to rest. She is more calm today, still believes she is at [facility]. 09/30: Today she is more calm. C/o bilateral knee pain. Does not want to get out of bed. No BM today. No CP or SOB Today her sister is bedside, she is much more pleasant, vitals stable. Platelets back up. WBC down. Cr down to 1.4 Plan: Labs today, platelets were low, Cr down. Making good progress Voltaren gel to knees. Needs skilled services on discharge As above, BP control, 1-1 sitter can be d/c'd. Stop IV and IVF, Geodon IM Vitals Vitals Vital Signs Date Time Temp Pulse Resp B/P (MAP) Pulse Ox O2 Delivery O2 Flow Rate FiO2 10/01/18 08:20 Room Air 10/01/18 08:15 60 108/68 10/01/18 07:00 98.5 20 97 98.5 Physical Exam General: Alert, Cooperative, No acute distress Lungs: Clear Abdomen: Normal bowel sounds, Soft, No tenderness, No hepatosplenomegaly, No masses Extremities: No clubbing, No cyanosis, No edema, Normal pulses, No tenderness/ swelling Skin: No rashes, No breakdown, No significant lesion Assessment and Plan Assessmemt and Plan Problems Medical Problems: (1) Acute on chronic renal insufficiency Status: Acute (2) At risk for elder neglect Status: Acute Comment Review of Relevant I have reviewed the following items remi (where applicable) has been applied. Medications Current Medications Ziprasidone (Geodon Im) 20 mg 1X ONCE IM Last administered on 09/27/18at 23:45 ; Start 09/27/18 at 23:45; Stop 09/27/18 at 23:46; Status DC Ziprasidone (Geodon Im) 20 mg STK-MED ONCE IM ; Start 09/27/18 at 23:40; Stop at 23:41; Status DC Lorazepam (Ativan) 2 mg 1X ONCE IM Last administered on 09/28/18at 00:05; Start 09/28/18 at 00:00; Stop 09/28/18 at 00:01; Status DC Lorazepam (Ativan) 2 mg STK-MED ONCE .ROUTE ; Start 09/27/18 at 23:59; Stop at 00:00; Status DC Sodium Chloride 1,000 ml @ 1,000 mls/hr 1X ONCE IV Last administered on 03:00; Start 09/28/18 at 03:00; Stop 09/28/18 at 03:59; Status DC Ringer's Solution 1,000 ml @ 125 mls/hr Q8H IV Last administered on 09/28/18 09:09; Start 09/28/18 at 09:00 Amlodipine Besylate (Norvasc) 10 mg DAILY PO Last administered on 10/01/18 08: 15; Start 09/28/18 at 13:00 Cyanocobalamin (Vitamin B-12) 1,000 mcg DAILY PO Last administered on 08:15; Start 09/28/18 at 13:00 Levetiracetam (Keppra) 500 mg BID PO Last administered on 10/01/18 08:15; Start 09/28/18 at 13:00 Lorazepam (Ativan) 0.5 mg TID PRN PRN PO ANXIETY / AGITATION Last administered on 09/30/18 19:56; Start 09/28/18 at 12:30 Triamterene/HCTZ (Maxzide 37.5/ 25mg) 1 tab DAILY PO Last administered on 12:52; Start 09/28/18 at 13:00; Stop 09/28/18 at 15:50; Status DC Hydralazine HCl (Apresoline) 25 mg PRN TID PRN PO HYPERTENSION, SEE COMMENTS; Start 09/28/18 at 12:30 Famotidine (Pepcid) 20 mg DAILY PO Last administered on 10/01/18 08:15; Start 09/28/18 at 13:00 Thiamine Mononitrate (Vitamin B-1) 100 mg DAILY PO Last administered on 08:15; Start 09/28/18 at 13:00 Ziprasidone (Geodon) 20 mg BID PO Last administered on 10/01/18 08:14; Start 09/28/18 at 12:45 Albuterol Sulfate (Ventolin Neb Soln) 2.5 mg PRN Q6HRS PRN NEB SHORTNESS OF BREATH; Start 09/28/18 at 12:45 Atorvastatin Calcium (Lipitor) 10 mg QHS PO Last administered on 09/30/18at 19: 56; Start 09/28/18 at 21:00 Ondansetron HCl (Zofran Odt) 4 mg PRN Q6HRS PRN PO NAUSEA/VOMITING Last administered on 09/29/18at 13:59; Start 09/29/18 at 13:45 Acetaminophen (Tylenol) 500 mg PRN Q6HRS PRN PO MILD PAIN / TEMP Last administered on 09/29/18at 14:01; Start 09/29/18 at 14:00 Diclofenac Sodium (Voltaren) 1 nirav BID TP Last administered on 10/01/18 08:16 ; Start 09/30/18 at 13:00 Active Scripts Active Geodon (Ziprasidone Hcl) 20 Mg Capsule 1 Cap PO BID Vitamin B-12 (Cyanocobalamin (Vitamin B-12)) 1,000 Mcg Tablet 1,000 Mcg PO DAILY 30 Days Levaquin (Levofloxacin) 500 Mg Tablet 500 Mg PO DAILY16 3 Days Triamterene-Hctz 37.5-25 Mg Tb (Triamterene/Hydrochlorothiazid) 1 Each Tablet 1 Tab PO DAILY 30 Days Hydralazine Hcl 25 Mg Tablet 25 Mg PO PRN TID PRN 30 Days For SBP > 150mmHg take as needed 3 times per day Amlodipine Besylate 10 Mg Tablet 10 Mg PO DAILY 30 Days Keppra (Levetiracetam) 500 Mg Tablet 500 Mg PO BID 30 Days Geodon (Ziprasidone Hcl) 20 Mg Capsule 20 Mg PO BID 30 Days Vitamin B-1 (Thiamine Mononitrate) 100 Mg Tablet 100 Mg PO DAILY 30 Days Reported Ranitidine Hcl 150 Mg Capsule 1 Cap PO BID Ativan (Lorazepam) 0.5 Mg Tablet 0.5 Mg PO PRN PRN Proair Hfa Inhaler (Albuterol Sulfate) 8.5 Gm Hfa.aer.ad 2 Puff IH PRN Q4-6HRS Vitals/I & O Vital Sign - Last 24 Hours 09/30/18 09/30/18 09/30/18 09/30/18 11:00 15:00 19:00 20:00 Temp 97.7 97.6 97.9 97.7 97.6 97.9 Pulse 63 72 71 Resp 16 16 18 B/P (MAP) 108/64 (79) 107/73 (84) 134/80 (98) Pulse Ox 98 95 99 O2 Delivery Room Air Room Air Room Air Room Air 09/30/18 10/01/18 10/01/18 10/01/18 23:00 03:00 07:00 08:15 Temp 97.6 98.5 98.5 97.6 98.5 98.5 Pulse 78 64 60 60 Resp 20 20 20 B/P (MAP) 131/83 (99) 132/75 (94) 108/68 (81) 108/68 Pulse Ox 97 99 97 O2 Delivery Room Air Room Air Room Air 10/01/18 08:20 O2 Delivery Room Air Intake and Output 09/30/18 09/30/18 10/01/18 15:00 23:00 07:00 Intake Total 400 ml 150 ml Output Total 2 ml Balance 400 ml 148 ml ADRIENNE BEAL MD Oct 01, 2018 08:28
[2018-10-01 09:48] LABS: BASO % 1 % (0-3); EOS # 0.1 x10^3/uL (0.0-0.7); EOS % 2 % (0-3); HEMATOCRIT 41.6 % (36.0-47.0); HEMOGLOBIN 13.4 g/dL (12.0-15.5); LYMPH # 1.6 x10^3/uL (1.0-4.8); LYMPH % 49 % (24-48); MEAN CORPUSCULAR HEMOGLOBIN 26 pg (25-35); MEAN CORPUSCULAR HGB CONC 32 g/dL (31-37); MEAN CORPUSCULAR VOLUME 81 fL (79-100); MONO # 0.3 x10^3/uL (0.0-1.1); MONO % 8 % (0-9); NEUT # 1.3 x10^3uL (1.8-7.7); NEUT % 40 % (31-73); PLATELET COUNT 151 x10^3/uL (140-400); RED BLOOD COUNT 5.18 x10^6/uL (3.50-5.40); RED CELL DISTRIBUTION WIDTH 15.3 % (11.5-14.5); WHITE BLOOD COUNT 3.3 x10^3/uL (4.0-11.0)
[2018-10-01 09:51] LABS: ALBUMIN 3.6 g/dL (3.4-5.0); CALCIUM 9.3 mg/dL (8.5-10.1); CREATININE 1.4 mg/dL (0.6-1.0); GFR 45.8; PHOSPHORUS 3.6 mg/dL (2.6-4.7); POTASSIUM 3.8 mmol/L (3.5-5.1)
[2018-10-01 11:00] VITALS: BP 113/68
[2018-10-01 15:00] VITALS: BP 129/83
[2018-10-01] MEDS: LORazepam 0.5 MG TABLET PO PRN (16:36)
[2018-10-01 18:59] VITALS: BP 151/94
[2018-10-01] MEDS: ATORVASTATIN CALCIUM 10 MG TABLET. PO SCH (20:17)
[2018-10-01 22:33] VITALS: BP 146/81
[2018-10-02] MEDS: LORazepam 0.5 MG TABLET PO PRN (06:42)
[2018-10-02 06:44] VITALS: BP 140/80
[2018-10-02] MEDS: levETIRAcetam 500 MG TABLET PO SCH ×2 (09:52→20:02)
[2018-10-02] MEDS: CYANOCOBALAMIN (VITAMIN B-12) 1,000 MCG TABLET. PO SCH (09:52)
[2018-10-02] MEDS: THIAMINE 100 MG TABLET. PO SCH (09:52)
[2018-10-02] MEDS: DICLOFENAC SODIUM 1% TOPICAL GEL 100GM TUBE. TP SCH ×2 (09:52→20:04)
[2018-10-02] MEDS: ZIPRASIDONE 20 MG CAPSULE PO SCH ×2 (09:52→20:02)
[2018-10-02] MEDS: amLODIPine BESYLATE 10 MG TABLET PO SCH (09:52)
[2018-10-02] MEDS: FAMOTIDINE 20 MG TABLET. PO SCH (09:52)
[2018-10-02 11:45] VITALS: BP 134/79
[2018-10-02] MEDS: ACETAMINOPHEN 500 MG TABLET PO PRN (12:01)
--- NOTE | 2018-10-02 12:04 | NUR ---
SW following pt. Spoke with Oliver at [facility] and [facility] and he informed SW, facility has decided not take pt anymore. Spoke with Manisha at [facility] who also declined to take pt stating they can not meet pt's need at this time. Sera from [facility] reported she was not able to come see pt over the weekend but will come to see pt today. NICOL phoned pt's daughter and notified her about decision and encouraged her to consider other facilities outside [facility]. Daughter declined for SW to screen pt in other facilities. SW then informed daughter if they are declining placement in other facilities, family needs to come and take pt home as SW is unable to find other facilities. Daughter reports she will discuss with her family members and she states they will take pt home if [facility] care center declines to take pt. SAVANAH LALA.
--- NOTE | 2018-10-02 13:28 | PDOC ---
PROGRESS NOTES Chief Complaint Chief Complaint A/P: Metabolic encephalopathy - with underlying h/o brain aneurysm and bipolar depression with psychosis - geodon and prn lorazepam - previously was metabolic and toxic, now appears to be a psychosis H/o Seizures, provoked by cocaine with h/o aneurysm - keppra and thiamine, neuro f/u in 4-6 weeks Bibasilar infiltrates - treated for HCAP with levaquin. These had resolved on CXR on 09/27/18 JOSE G - Cr jumped to 2, likely this is vasomotor, cont IVF Cocaine use/abuse likely - counseled Hx of brain aneurysm - ?s/p clipping at [facility] DM oral meds and insulin HTN - needs better control HLD - LDL is 199, needs 80mg atorvastatin or 40mg rosuvastatin self neglect FEN - ADA diet PPX - lovenox FULL CODE Inpatient for acute encephalopathy that is recurrent, likely related to primary psychiatric disorder./ cocaine abuse 1-1 sitter Needs to work with PT/OT - only wants home health Needs geriatric psych with her h/o seizures and sundowning in the future Sister is her nearest next of kin - d/w her need for skilled svcs on d/c History of Present Illness History of Present Illness 62 y/o female presents via EMS with report of continued "confusion". Patient has been run by EMS "several times" in the last 2 days for this confusion. Patient apparently lives with her elderly mother. The mother called 911 today due to being "unable to control" the patient. Patient reports she thinks she is at "[facility]" and it is 330PM and the year is "2003". Patient denies other complaint. EMS was able to walk in with patient, as she refused to lay on the gurney. EMS denies known trauma. No history of fever. Patient reports she wasn't to leave because her "family is waiting in the waiting room for me." Patient seen earlier today at [place] in the ED per [facility] review for same. Patient was found walking around in the snow outside her home. Patient apparently has a long history of altered mental status with report of probable dementia and sundowning per chart review. Plan upon discharge from ED earlier today was to trial home care with prescriptions for Geodon per me last visit. Family told EMS that patient was "not able to be controlled". 09/29: Was walking the unit despite 1-1, pulled out her IV. She is working with PT, asking to rest. She is more calm today, still believes she is at [facility]. 09/30: Today she is more calm. C/o bilateral knee pain. Does not want to get out of bed. No BM today. No CP or SOB 10/02 per my review of records had cocain use in jul 2018 Today her sister is bedside, she is much more pleasant, vitals stable. Platelets back up. WBC down. Cr down to 1.4 at risk for suden with cocaine use in elder age group Plan: Labs today, platelets were low, Cr down. Voltaren gel to knees. Needs skilled services on discharge As above, BP control, 1-1 sitter can be d/c'd. Stop IV and IVF, [place] IM Vitals Vitals Vital Signs Date Time Temp Pulse Resp B/P (MAP) Pulse Ox O2 Delivery O2 Flow Rate FiO2 10/02/18 11:45 97.6 69 18 134/79 (97) Room Air 97.6 10/02/18 06:44 99 Physical Exam General: Alert, Cooperative, No acute distress Lungs: Clear Abdomen: Normal bowel sounds, Soft, No tenderness, No hepatosplenomegaly, No masses Extremities: No clubbing, No cyanosis, No edema, Normal pulses, No tenderness/ swelling Skin: No rashes, No breakdown, No significant lesion Assessment and Plan Assessmemt and Plan Problems Medical Problems: (1) Acute on chronic renal insufficiency Status: Acute (2) At risk for elder neglect Status: Acute Comment Review of Relevant I have reviewed the following items remi (where applicable) has been applied. Labs Laboratory Tests Test 10/01/18 09:25 White Blood Count 3.3 x10^3/uL (4.0-11.0) Red Blood Count 5.18 x10^6/uL (3.50-5.40) Hemoglobin 13.4 g/dL (12.0-15.5) Hematocrit 41.6 % (36.0-47.0) Mean Corpuscular Volume 81 fL (79-100) Mean Corpuscular Hemoglobin 26 pg (25-35) Mean Corpuscular Hemoglobin Concent 32 g/dL (31-37) Red Cell Distribution Width 15.3 % (11.5-14.5) Platelet Count 151 x10^3/uL (140-400) Neutrophils (%) (Auto) 40 % (31-73) Lymphocytes (%) (Auto) 49 % (24-48) Monocytes (%) (Auto) 8 % (0-9) Eosinophils (%) (Auto) 2 % (0-3) Basophils (%) (Auto) 1 % (0-3) Neutrophils # (Auto) 1.3 x10^3uL (1.8-7.7) Lymphocytes # (Auto) 1.6 x10^3/uL (1.0-4.8) Monocytes # (Auto) 0.3 x10^3/uL (0.0-1.1) Eosinophils # (Auto) 0.1 x10^3/uL (0.0-0.7) Basophils # (Auto) 0.0 x10^3/uL (0.0-0.2) Sodium Level 138 mmol/L (136-145) Potassium Level 3.8 mmol/L (3.5-5.1) Chloride Level 102 mmol/L (98-107) Carbon Dioxide Level 22 mmol/L (21-32) Anion Gap 14 (6-14) Blood Urea Nitrogen 36 mg/dL (7-20) Creatinine 1.4 mg/dL (0.6-1.0) Estimated GFR (Cockcroft-Gault) 45.8 Glucose Level 197 mg/dL (70-99) Calcium Level 9.3 mg/dL (8.5-10.1) Phosphorus Level 3.6 mg/dL (2.6-4.7) Albumin 3.6 g/dL (3.4-5.0) Medications Current Medications Ziprasidone (Geodon Im) 20 mg 1X ONCE IM Last administered on 09/27/18at 23:45 ; Start 09/27/18 at 23:45; Stop 09/27/18 at 23:46; Status DC Ziprasidone (Geodon Im) 20 mg STK-MED ONCE IM ; Start 09/27/18 at 23:40; Stop at 23:41; Status DC Lorazepam (Ativan) 2 mg 1X ONCE IM Last administered on 09/28/18at 00:05; Start 09/28/18 at 00:00; Stop 09/28/18 at 00:01; Status DC Lorazepam (Ativan) 2 mg STK-MED ONCE .ROUTE ; Start 09/27/18 at 23:59; Stop at 00:00; Status DC Sodium Chloride 1,000 ml @ 1,000 mls/hr 1X ONCE IV Last administered on at 03:00; Start 09/28/18 at 03:00; Stop 09/28/18 at 03:59; Status DC Ringer's Solution 1,000 ml @ 125 mls/hr Q8H IV Last administered on 09/28/18 09:09; Start 09/28/18 at 09:00; Stop 10/01/18 at 12:07; Status DC Amlodipine Besylate (Norvasc) 10 mg DAILY PO Last administered on 10/02/18 09: 52; Start 09/28/18 at 13:00 Cyanocobalamin (Vitamin B-12) 1,000 mcg DAILY PO Last administered on 09:52; Start 09/28/18 at 13:00 Levetiracetam (Keppra) 500 mg BID PO Last administered on 10/02/18 09:52; Start 09/28/18 at 13:00 Lorazepam (Ativan) 0.5 mg TID PRN PRN PO ANXIETY / AGITATION Last administered on 10/02/18 06:42; Start 09/28/18 at 12:30 Triamterene/HCTZ (Maxzide 37.5/ 25mg) 1 tab DAILY PO Last administered on 12:52; Start 09/28/18 at 13:00; Stop 09/28/18 at 15:50; Status DC Hydralazine HCl (Apresoline) 25 mg PRN TID PRN PO HYPERTENSION, SEE COMMENTS; Start 09/28/18 at 12:30 Famotidine (Pepcid) 20 mg DAILY PO Last administered on 10/02/18 09:52; Start 09/28/18 at 13:00 Thiamine Mononitrate (Vitamin B-1) 100 mg DAILY PO Last administered on 09:52; Start 09/28/18 at 13:00 Ziprasidone (Geodon) 20 mg BID PO Last administered on 10/02/18 09:52; Start 09/28/18 at 12:45 Albuterol Sulfate (Ventolin Neb Soln) 2.5 mg PRN Q6HRS PRN NEB SHORTNESS OF BREATH; Start 09/28/18 at 12:45 Atorvastatin Calcium (Lipitor) 10 mg QHS PO Last administered on 10/01/18at 20: 17; Start 09/28/18 at 21:00 Ondansetron HCl (Zofran Odt) 4 mg PRN Q6HRS PRN PO NAUSEA/VOMITING Last administered on 09/29/18at 13:59; Start 09/29/18 at 13:45 Acetaminophen (Tylenol) 500 mg PRN Q6HRS PRN PO MILD PAIN / TEMP Last administered on 10/02/18 12:01; Start 09/29/18 at 14:00 Diclofenac Sodium (Voltaren) 1 nirav BID TP Last administered on 10/02/18 09:52 ; Start 09/30/18 at 13:00 Active Scripts Active Geodon (Ziprasidone Hcl) 20 Mg Capsule 1 Cap PO BID Vitamin B-12 (Cyanocobalamin (Vitamin B-12)) 1,000 Mcg Tablet 1,000 Mcg PO DAILY 30 Days Levaquin (Levofloxacin) 500 Mg Tablet 500 Mg PO DAILY16 3 Days Triamterene-Hctz 37.5-25 Mg Tb (Triamterene/Hydrochlorothiazid) 1 Each Tablet 1 Tab PO DAILY 30 Days Hydralazine Hcl 25 Mg Tablet 25 Mg PO PRN TID PRN 30 Days For SBP > 150mmHg take as needed 3 times per day Amlodipine Besylate 10 Mg Tablet 10 Mg PO DAILY 30 Days Keppra (Levetiracetam) 500 Mg Tablet 500 Mg PO BID 30 Days Geodon (Ziprasidone Hcl) 20 Mg Capsule 20 Mg PO BID 30 Days Vitamin B-1 (Thiamine Mononitrate) 100 Mg Tablet 100 Mg PO DAILY 30 Days Reported Ranitidine Hcl 150 Mg Capsule 1 Cap PO BID Ativan (Lorazepam) 0.5 Mg Tablet 0.5 Mg PO PRN PRN Proair Hfa Inhaler (Albuterol Sulfate) 8.5 Gm Hfa.aer.ad 2 Puff IH PRN Q4-6HRS Vitals/I & O Vital Sign - Last 24 Hours 10/01/18 10/01/18 10/01/18 10/01/18 15:00 18:59 20:05 22:33 Temp 98.1 97.5 97.9 98.1 97.5 97.9 Pulse 80 84 70 Resp 20 17 16 B/P (MAP) 129/83 (98) 151/94 (113) 146/81 (102) Pulse Ox 96 98 98 O2 Delivery Room Air Room Air Room Air Room Air 10/02/18 10/02/18 10/02/18 10/02/18 06:44 08:00 09:52 11:45 Temp 97.5 97.6 97.5 97.6 Pulse 63 63 69 Resp 16 18 B/P (MAP) 140/80 (100) 140/80 134/79 (97) Pulse Ox 99 O2 Delivery Room Air Room Air Room Air Intake and Output 10/01/18 10/01/18 10/02/18 14:59 22:59 06:59 Intake Total 500 ml 240 ml Output Total 2 ml Balance -2 ml 500 ml 240 ml REGINA TRAVIS MD Oct 02, 2018 13:28
--- NOTE | 2018-10-02 14:38 | NUR ---
NICOL following pt. Sera from [facility] came and visited pt. Sera reported they will take pt tomorrow as long as pt is off of 1:1 for 24 hours and does not show any behaviors. NICOL discussed pt is only wandering around and does not have aggressive behaviors so far. Sera reported she will work on getting pt wander guard. Anticipate dc tomorrow to [facility]. SAVANAH RN and warehouse foreman. Left a voice mail to pt's daughter, Shawanda regarding dc plan.
[2018-10-02 14:53] VITALS: BP 113/70
--- NOTE | 2018-10-02 16:19 | PDOC ---
PROGRESS NOTES Assessment Assessment Seizure. Metabolic encephalopathy. Confusion. Renal failure. HLD. Opiate positive. RECOMMENDATIONS/PLAN: Continue Keppra 500 mg bid. Treat medical diseases. OT/PT. FU with PCP. Her HCT on 09/23/18 was no acute findings. EEG on 09/29/18: No seizure activity. Artifact noted. HISTORY OF THE PRESENT ILLNESS: 62-y-old AA female patient with history of seizure and has been treated with Keppra per docu. She has been having symptoms of mental status changes and confusion in the past a couple of days. She said she had a seizure on 09/27/18 and had 3 seizures this month. presents via EMS with report of continued "confusion". Patient has been run by EMS "several times" in the last 2 days for this confusion. Patient apparently lives with her elderly mother. The mother called 911 today due to being "unable to control" the patient. No seizures reported since here. Past Medical History Cardiovascular: HTN Pulmonary: Asthma CENTRAL NERVOUS SYSTEM: Seizure, Other GI: GERD Endocrine: Diabetes Past Surgical History No information is available. Family History No Significant Social History ALCOHOL: none Drugs: None Lives at home with her mother and daughter. Allergies Coded Allergies: Penicillins (Verified Allergy, Intermediate, N/V ITCH, 03/30/18) I S O L A T I O N *CONTACT* (Verified Allergy, Unknown, 03/29/18) carbapenem resistant PSA REVIEW OF SYSTEMS: Constitutional: No malnutrition, weight loss, cachexia. Head: No traumatic brain or head injury. Skin: No edema, or rash. Ear: No infection. Eyes: No vision loss or color blindness. Nose: No bleeding or purulent discharges. Hearing: No hearing decrease. Neck: No injury. Breast: No history of cancer, masses,or discharges. Cardiac: HLD. Pulmonary: No COPD. GI: No GI ulcer, GI bleeding. Urinary/genital: UTI. Endocrinologic: No cousin face, craniofacial dysmorphism, polydactyly. Skeletomuscular: No muscular atrophy, deformity. Neurological: see HP. Psychiatric: Denies drug use/abuse. Otherwise, not [id number] review of systems. PHYSICAL EXAMINATION: General appearance is in no acute distress. HEENT: Normocephalic and nontraumatic. Eyes, nose, ears, and throat are unremarkable. Neck is supple. No lymphadenopathy. No crepitus. Cardiovascular: S1, S2, regular rate and rhythm. Pulmonary: Clear to auscultation bilaterally. Abdomen: Bowel sounds are positive. Extremities: No rash, lesions, or edema. No restriction of range of motion NEUROLOGICAL EXAMINATION: Awake. Partially oriented to time, and knew place and person. PERRL. EOMI. CN: no focal findings. Muscle tone: within normal. Muscle strength: 5- DTR: 2- Plantar reflex: Flexor response bilaterally Gait: not examined in bed. Sensory exam: no abnormal findings. No cerebellar signs elicited. F-T-N test fine. Objective Objective Vital Signs Date Time Temp Pulse Resp B/P (MAP) Pulse Ox O2 Delivery O2 Flow Rate FiO2 10/02/18 14:53 98.6 66 16 113/70 (84) 94 Room Air 98.6 Intake and Output 10/02/18 07:00 Intake Total 740 ml Output Total 2 ml Balance 738 ml Intake Oral 740 ml Output Urine Total 2 ml # Voids 5 Vitals Signs Vitals VS - Last 72 Hours, by Label Date Time Temp Pulse Resp B/P (MAP) Pulse Ox O2 Delivery O2 Flow Rate FiO2 10/02/18 14:53 98.6 66 16 113/70 (84) 94 Room Air 98.6 10/02/18 11:45 97.6 69 18 134/79 (97) Room Air 97.6 10/02/18 09:52 63 140/80 10/02/18 08:00 Room Air 10/02/18 06:44 97.5 63 16 140/80 (100) 99 Room Air 97.5 10/01/18 22:33 97.9 70 16 146/81 (102) 98 Room Air 97.9 10/01/18 20:05 Room Air 10/01/18 18:59 97.5 84 17 151/94 (113) 98 Room Air 97.5 10/01/18 15:00 98.1 80 20 129/83 (98) 96 Room Air 98.1 10/01/18 11:00 98.1 65 20 113/68 (83) 96 Room Air 98.1 10/01/18 08:20 Room Air 10/01/18 08:15 60 108/68 10/01/18 07:00 98.5 60 20 108/68 (81) 97 Room Air 98.5 Comment Review of Relevant I have reviewed the following items remi (where applicable) has been applied. PETER TORRES MD Oct 02, 2018 16:19
[2018-10-02 19:36] VITALS: BP 110/57
[2018-10-02] MEDS: ATORVASTATIN CALCIUM 10 MG TABLET. PO SCH (20:02)
[2018-10-02 23:09] VITALS: BP 114/70
[2018-10-03 03:41] VITALS: BP 151/70
[2018-10-03 05:07] LABS: BASO % 1 % (0-3); EOS # 0.1 x10^3/uL (0.0-0.7); EOS % 2 % (0-3); HEMATOCRIT 36.6 % (36.0-47.0); HEMOGLOBIN 11.7 g/dL (12.0-15.5); LYMPH # 1.9 x10^3/uL (1.0-4.8); LYMPH % 50 % (24-48); MEAN CORPUSCULAR HEMOGLOBIN 26 pg (25-35); MEAN CORPUSCULAR HGB CONC 32 g/dL (31-37); MEAN CORPUSCULAR VOLUME 80 fL (79-100); MONO # 0.5 x10^3/uL (0.0-1.1); MONO % 12 % (0-9); NEUT # 1.3 x10^3uL (1.8-7.7); NEUT % 35 % (31-73); PLATELET COUNT 143 x10^3/uL (140-400); RED BLOOD COUNT 4.58 x10^6/uL (3.50-5.40); WHITE BLOOD COUNT 3.8 x10^3/uL (4.0-11.0)
[2018-10-03 06:23] LABS: CALCIUM 9.2 mg/dL (8.5-10.1); CREATININE 1.1 mg/dL (0.6-1.0); GFR 60.5; POTASSIUM 4.1 mmol/L (3.5-5.1)
[2018-10-03 07:00] VITALS: BP 180/78
[2018-10-03] MEDS: levETIRAcetam 500 MG TABLET PO SCH ×2 (08:47→21:08)
[2018-10-03] MEDS: THIAMINE 100 MG TABLET. PO SCH (08:47)
[2018-10-03] MEDS: CYANOCOBALAMIN (VITAMIN B-12) 1,000 MCG TABLET. PO SCH (08:47)
[2018-10-03] MEDS: ZIPRASIDONE 20 MG CAPSULE PO SCH ×2 (08:47→21:08)
[2018-10-03] MEDS: amLODIPine BESYLATE 10 MG TABLET PO SCH (08:47)
[2018-10-03] MEDS: DICLOFENAC SODIUM 1% TOPICAL GEL 100GM TUBE. TP SCH ×2 (08:47→21:00)
[2018-10-03] MEDS: FAMOTIDINE 20 MG TABLET. PO SCH (08:47)
--- NOTE | 2018-10-03 08:52 | PDOC ---
PROGRESS NOTES Chief Complaint Chief Complaint A/P: Metabolic encephalopathy - with underlying h/o brain aneurysm and bipolar depression with psychosis - geodon and prn lorazepam - previously was metabolic and toxic, now appears to be a psychosis H/o Seizures, provoked by cocaine with h/o aneurysm - keppra and thiamine, neuro f/u in 4-6 weeks Bibasilar infiltrates - treated for HCAP with levaquin. These had resolved on CXR on 09/27/18 JOSE G - Cr jumped to 2, likely this is vasomotor, cont IVF Cocaine use/abuse likely - counseled Hx of brain aneurysm - ?s/p clipping at [facility] DM oral meds and insulin HTN - needs better control HLD - LDL is 199, needs 80mg atorvastatin or 40mg rosuvastatin self neglect FEN - ADA diet PPX - lovenox FULL CODE Inpatient for acute encephalopathy that is recurrent, likely related to primary psychiatric disorder./ cocaine abuse 1-1 sitter Needs to work with PT/OT - only wants home health Needs geriatric psych with her h/o seizures and sundowning in the future Sister is her nearest next of kin - d/w her need for skilled svcs on d/c History of Present Illness History of Present Illness 62 y/o female presents via EMS with report of continued "confusion". Patient has been run by EMS "several times" in the last 2 days for this confusion. Patient apparently lives with her elderly mother. The mother called 911 today due to being "unable to control" the patient. Patient reports she thinks she is at "[facility]" and it is 330PM and the year is "2003". Patient denies other complaint. EMS was able to walk in with patient, as she refused to lay on the gurney. EMS denies known trauma. No history of fever. Patient reports she wasn't to leave because her "family is waiting in the waiting room for me." Patient seen earlier today at [place] in the ED per [facility] review for same. Patient was found walking around in the snow outside her home. Patient apparently has a long history of altered mental status with report of probable dementia and sundowning per chart review. Plan upon discharge from ED earlier today was to trial home care with prescriptions for Geodon per me last visit. Family told EMS that patient was "not able to be controlled". 09/29: Was walking the unit despite 1-1, pulled out her IV. She is working with PT, asking to rest. She is more calm today, still believes she is at [facility]. 09/30: Today she is more calm. C/o bilateral knee pain. Does not want to get out of bed. No BM today. No CP or SOB 10/02 per my review of records had cocain use in jul 2018 Today her sister is bedside, she is much more pleasant, vitals stable. Platelets back up. WBC down. Cr down to 1.4 at risk for suden with cocaine use in elder age group 10/03 bp uncontrolled will need med adjustments Plan: Labs today, platelets were low, Cr down. Voltaren gel to knees. Needs skilled services on discharge As above, BP control, 1-1 sitter can be d/c'd. Stop IV and IVF, [place] IM Vitals Vitals Vital Signs Date Time Temp Pulse Resp B/P (MAP) Pulse Ox O2 Delivery O2 Flow Rate FiO2 10/03/18 08:47 58 180/78 10/03/18 07:00 97.8 16 95 Room Air 97.8 Physical Exam General: Alert, Cooperative, No acute distress Lungs: Clear Abdomen: Normal bowel sounds, Soft, No tenderness, No hepatosplenomegaly, No masses Extremities: No clubbing, No cyanosis, No edema, Normal pulses, No tenderness/ swelling Skin: No rashes, No breakdown, No significant lesion Labs LABS Laboratory Tests Test 10/03/18 03:30 White Blood Count 3.8 x10^3/uL (4.0-11.0) Red Blood Count 4.58 x10^6/uL (3.50-5.40) Hemoglobin 11.7 g/dL (12.0-15.5) Hematocrit 36.6 % (36.0-47.0) Mean Corpuscular Volume 80 fL (79-100) Mean Corpuscular Hemoglobin 26 pg (25-35) Mean Corpuscular Hemoglobin Concent 32 g/dL (31-37) Red Cell Distribution Width 15.0 % (11.5-14.5) Platelet Count 143 x10^3/uL (140-400) Neutrophils (%) (Auto) 35 % (31-73) Lymphocytes (%) (Auto) 50 % (24-48) Monocytes (%) (Auto) 12 % (0-9) Eosinophils (%) (Auto) 2 % (0-3) Basophils (%) (Auto) 1 % (0-3) Neutrophils # (Auto) 1.3 x10^3uL (1.8-7.7) Lymphocytes # (Auto) 1.9 x10^3/uL (1.0-4.8) Monocytes # (Auto) 0.5 x10^3/uL (0.0-1.1) Eosinophils # (Auto) 0.1 x10^3/uL (0.0-0.7) Basophils # (Auto) 0.0 x10^3/uL (0.0-0.2) Sodium Level 141 mmol/L (136-145) Potassium Level 4.1 mmol/L (3.5-5.1) Chloride Level 106 mmol/L (98-107) Carbon Dioxide Level 24 mmol/L (21-32) Anion Gap 11 (6-14) Blood Urea Nitrogen 30 mg/dL (7-20) Creatinine 1.1 mg/dL (0.6-1.0) Estimated GFR (Cockcroft-Gault) 60.5 Glucose Level 91 mg/dL (70-99) Calcium Level 9.2 mg/dL (8.5-10.1) Assessment and Plan Assessmemt and Plan Problems Medical Problems: (1) Acute on chronic renal insufficiency Status: Acute (2) At risk for elder neglect Status: Acute Comment Review of Relevant I have reviewed the following items remi (where applicable) has been applied. Labs Laboratory Tests Test 10/01/18 09:25 10/03/18 03:30 White Blood Count 3.3 x10^3/uL (4.0-11.0) 3.8 x10^3/uL (4.0-11.0) Red Blood Count 5.18 x10^6/uL (3.50-5.40) 4.58 x10^6/uL (3.50-5.40) Hemoglobin 13.4 g/dL (12.0-15.5) 11.7 g/dL (12.0-15.5) Hematocrit 41.6 % (36.0-47.0) 36.6 % (36.0-47.0) Mean Corpuscular Volume 81 fL (79-100) 80 fL (79-100) Mean Corpuscular Hemoglobin 26 pg (25-35) 26 pg (25-35) Mean Corpuscular Hemoglobin Concent 32 g/dL (31-37) 32 g/dL (31-37) Red Cell Distribution Width 15.3 % (11.5-14.5) 15.0 % (11.5-14.5) Platelet Count 151 x10^3/uL (140-400) 143 x10^3/uL (140-400) Neutrophils (%) (Auto) 40 % (31-73) 35 % (31-73) Lymphocytes (%) (Auto) 49 % (24-48) 50 % (24-48) Monocytes (%) (Auto) 8 % (0-9) 12 % (0-9) Eosinophils (%) (Auto) 2 % (0-3) 2 % (0-3) Basophils (%) (Auto) 1 % (0-3) 1 % (0-3) Neutrophils # (Auto) 1.3 x10^3uL (1.8-7.7) 1.3 x10^3uL (1.8-7.7) Lymphocytes # (Auto) 1.6 x10^3/uL (1.0-4.8) 1.9 x10^3/uL (1.0-4.8) Monocytes # (Auto) 0.3 x10^3/uL (0.0-1.1) 0.5 x10^3/uL (0.0-1.1) Eosinophils # (Auto) 0.1 x10^3/uL (0.0-0.7) 0.1 x10^3/uL (0.0-0.7) Basophils # (Auto) 0.0 x10^3/uL (0.0-0.2) 0.0 x10^3/uL (0.0-0.2) Sodium Level 138 mmol/L (136-145) 141 mmol/L (136-145) Potassium Level 3.8 mmol/L (3.5-5.1) 4.1 mmol/L (3.5-5.1) Chloride Level 102 mmol/L (98-107) 106 mmol/L (98-107) Carbon Dioxide Level 22 mmol/L (21-32) 24 mmol/L (21-32) Anion Gap 14 (6-14) 11 (6-14) Blood Urea Nitrogen 36 mg/dL (7-20) 30 mg/dL (7-20) Creatinine 1.4 mg/dL (0.6-1.0) 1.1 mg/dL (0.6-1.0) Estimated GFR (Cockcroft-Gault) 45.8 60.5 Glucose Level 197 mg/dL (70-99) 91 mg/dL (70-99) Calcium Level 9.3 mg/dL (8.5-10.1) 9.2 mg/dL (8.5-10.1) Phosphorus Level 3.6 mg/dL (2.6-4.7) Albumin 3.6 g/dL (3.4-5.0) Laboratory Tests Test 10/03/18 03:30 White Blood Count 3.8 x10^3/uL (4.0-11.0) Red Blood Count 4.58 x10^6/uL (3.50-5.40) Hemoglobin 11.7 g/dL (12.0-15.5) Hematocrit 36.6 % (36.0-47.0) Mean Corpuscular Volume 80 fL (79-100) Mean Corpuscular Hemoglobin 26 pg (25-35) Mean Corpuscular Hemoglobin Concent 32 g/dL (31-37) Red Cell Distribution Width 15.0 % (11.5-14.5) Platelet Count 143 x10^3/uL (140-400) Neutrophils (%) (Auto) 35 % (31-73) Lymphocytes (%) (Auto) 50 % (24-48) Monocytes (%) (Auto) 12 % (0-9) Eosinophils (%) (Auto) 2 % (0-3) Basophils (%) (Auto) 1 % (0-3) Neutrophils # (Auto) 1.3 x10^3uL (1.8-7.7) Lymphocytes # (Auto) 1.9 x10^3/uL (1.0-4.8) Monocytes # (Auto) 0.5 x10^3/uL (0.0-1.1) Eosinophils # (Auto) 0.1 x10^3/uL (0.0-0.7) Basophils # (Auto) 0.0 x10^3/uL (0.0-0.2) Sodium Level 141 mmol/L (136-145) Potassium Level 4.1 mmol/L (3.5-5.1) Chloride Level 106 mmol/L (98-107) Carbon Dioxide Level 24 mmol/L (21-32) Anion Gap 11 (6-14) Blood Urea Nitrogen 30 mg/dL (7-20) Creatinine 1.1 mg/dL (0.6-1.0) Estimated GFR (Cockcroft-Gault) 60.5 Glucose Level 91 mg/dL (70-99) Calcium Level 9.2 mg/dL (8.5-10.1) Medications Current Medications Ziprasidone (Geodon Im) 20 mg 1X ONCE IM Last administered on 09/27/18at 23:45 ; Start 09/27/18 at 23:45; Stop 09/27/18 at 23:46; Status DC Ziprasidone (Geodon Im) 20 mg STK-MED ONCE IM ; Start 09/27/18 at 23:40; Stop at 23:41; Status DC Lorazepam (Ativan) 2 mg 1X ONCE IM Last administered on 09/28/18at 00:05; Start 09/28/18 at 00:00; Stop 09/28/18 at 00:01; Status DC Lorazepam (Ativan) 2 mg STK-MED ONCE .ROUTE ; Start 09/27/18 at 23:59; Stop at 00:00; Status DC Sodium Chloride 1,000 ml @ 1,000 mls/hr 1X ONCE IV Last administered on at 03:00; Start 09/28/18 at 03:00; Stop 09/28/18 at 03:59; Status DC Ringer's Solution 1,000 ml @ 125 mls/hr Q8H IV Last administered on 09/28/18at 09:09; Start 09/28/18 at 09:00; Stop 10/01/18 at 12:07; Status DC Amlodipine Besylate (Norvasc) 10 mg DAILY PO Last administered on 10/03/18at 08: 47; Start 09/28/18 at 13:00 Cyanocobalamin (Vitamin B-12) 1,000 mcg DAILY PO Last administered on 08:47; Start 09/28/18 at 13:00 Levetiracetam (Keppra) 500 mg BID PO Last administered on 10/03/18 08:47; Start 09/28/18 at 13:00 Lorazepam (Ativan) 0.5 mg TID PRN PRN PO ANXIETY / AGITATION Last administered on 10/02/18 06:42; Start 09/28/18 at 12:30 Triamterene/HCTZ (Maxzide 37.5/ 25mg) 1 tab DAILY PO Last administered on 12:52; Start 09/28/18 at 13:00; Stop 09/28/18 at 15:50; Status DC Hydralazine HCl (Apresoline) 25 mg PRN TID PRN PO HYPERTENSION, SEE COMMENTS; Start 09/28/18 at 12:30 Famotidine (Pepcid) 20 mg DAILY PO Last administered on 10/03/18 08:47; Start 09/28/18 at 13:00 Thiamine Mononitrate (Vitamin B-1) 100 mg DAILY PO Last administered on 08:47; Start 09/28/18 at 13:00 Ziprasidone (Geodon) 20 mg BID PO Last administered on 10/03/18 08:47; Start 09/28/18 at 12:45 Albuterol Sulfate (Ventolin Neb Soln) 2.5 mg PRN Q6HRS PRN NEB SHORTNESS OF BREATH; Start 09/28/18 at 12:45 Atorvastatin Calcium (Lipitor) 10 mg QHS PO Last administered on 10/02/18 20: 02; Start 09/28/18 at 21:00 Ondansetron HCl (Zofran Odt) 4 mg PRN Q6HRS PRN PO NAUSEA/VOMITING Last administered on 09/29/18 13:59; Start 09/29/18 at 13:45 Acetaminophen (Tylenol) 500 mg PRN Q6HRS PRN PO MILD PAIN / TEMP Last administered on 10/02/18 12:01; Start 09/29/18 at 14:00 Diclofenac Sodium (Voltaren) 1 nirav BID TP Last administered on 10/03/18 08:47 ; Start 2/23/19 at 13:00 Active Scripts Active Geodon (Ziprasidone Hcl) 20 Mg Capsule 1 Cap PO BID Vitamin B-12 (Cyanocobalamin (Vitamin B-12)) 1,000 Mcg Tablet 1,000 Mcg PO DAILY 30 Days Levaquin (Levofloxacin) 500 Mg Tablet 500 Mg PO DAILY16 3 Days Triamterene-Hctz 37.5-25 Mg Tb (Triamterene/Hydrochlorothiazid) 1 Each Tablet 1 Tab PO DAILY 30 Days Hydralazine Hcl 25 Mg Tablet 25 Mg PO PRN TID PRN 30 Days For SBP > 150mmHg take as needed 3 times per day Amlodipine Besylate 10 Mg Tablet 10 Mg PO DAILY 30 Days Keppra (Levetiracetam) 500 Mg Tablet 500 Mg PO BID 30 Days Geodon (Ziprasidone Hcl) 20 Mg Capsule 20 Mg PO BID 30 Days Vitamin B-1 (Thiamine Mononitrate) 100 Mg Tablet 100 Mg PO DAILY 30 Days Reported Ranitidine Hcl 150 Mg Capsule 1 Cap PO BID Ativan (Lorazepam) 0.5 Mg Tablet 0.5 Mg PO PRN PRN Proair Hfa Inhaler (Albuterol Sulfate) 8.5 Gm Hfa.aer.ad 2 Puff IH PRN Q4-6HRS Vitals/I & O Vital Sign - Last 24 Hours 10/02/18 10/02/18 10/02/18 10/02/18 09:52 11:45 14:53 19:36 Temp 97.6 98.6 98.5 97.6 98.6 98.5 Pulse 63 69 66 71 Resp 18 16 20 B/P (MAP) 140/80 134/79 (97) 113/70 (84) 110/57 (74) Pulse Ox 94 97 O2 Delivery Room Air Room Air Room Air 10/02/18 10/02/18 10/03/18 10/03/18 20:00 23:09 03:41 07:00 Temp 98.2 97.6 97.8 98.2 97.6 97.8 Pulse 61 58 58 Resp 18 17 16 B/P (MAP) 114/70 (85) 151/70 (97) 180/78 (112) Pulse Ox 97 100 95 O2 Delivery Room Air Room Air Room Air Room Air 10/03/18 08:47 Pulse 58 B/P (MAP) 180/78 Intake and Output 10/02/18 10/02/18 10/03/18 15:00 23:00 07:00 Intake Total 600 ml 550 ml Output Total 1 ml Balance 599 ml 550 ml REGINA TRAVIS MD Oct 03, 2018 08:52
[2018-10-03 11:00] VITALS: BP 150/82
--- NOTE | 2018-10-03 12:36 | NUR ---
Patient very calm and cooperative. Alert and oriented to self and place. No c/o pain or discomfort. States she is ready to go home. Patient resting comfortably in bed at this time. Will continue to monitor.
--- NOTE | 2018-10-03 13:15 | NUR ---
NICOL following. Spoke with Sera at [facility], and BRINDA wants pt to stay off the 1:1 for another 24 hours to monitor behavior. NICOL has informed facility pt has been doing okay the last 24 hours and has been staying in room. NICOL requested RN to document behaviors as well. Spoke with pt's niece and provided her a fax number to fax Medicaid application to. NICOL also informed them to submit application [employer] as well. Notified pt's daughter, Shawanda regarding plan. Discussed with RN and Physician.
--- NOTE | 2018-10-03 17:16 | PDOC ---
PROGRESS NOTES Assessment Assessment Seizure. Metabolic encephalopathy. Confusion. Renal failure. HLD. Opiate positive. RECOMMENDATIONS/PLAN: Continue Keppra 500 mg bid. Treat medical diseases. OT/PT. FU with PCP. Her HCT on 09/23/18 was no acute findings. EEG on 09/29/18: No seizure activity. Artifact noted. HISTORY OF THE PRESENT ILLNESS: 62-y-old AA female patient with history of seizure and has been treated with Keppra per docu. She has been having symptoms of mental status changes and confusion in the past a couple of days. She said she had a seizure on 09/27/18 and had 3 seizures this month. presents via EMS with report of continued "confusion". Patient has been run by EMS "several times" in the last 2 days for this confusion. Patient apparently lives with her elderly mother. The mother called 911 today due to being "unable to control" the patient. No seizures reported since here. Past Medical History Cardiovascular: HTN Pulmonary: Asthma CENTRAL NERVOUS SYSTEM: Seizure, Other GI: GERD Endocrine: Diabetes Past Surgical History No information is available. Family History No Significant Social History ALCOHOL: none Drugs: None Lives at home with her mother and daughter. Allergies Coded Allergies: Penicillins (Verified Allergy, Intermediate, N/V ITCH, 03/30/18) I S O L A T I O N *CONTACT* (Verified Allergy, Unknown, 03/29/18) carbapenem resistant PSA REVIEW OF SYSTEMS: Constitutional: No malnutrition, weight loss, cachexia. Head: No traumatic brain or head injury. Skin: No edema, or rash. Ear: No infection. Eyes: No vision loss or color blindness. Nose: No bleeding or purulent discharges. Hearing: No hearing decrease. Neck: No injury. Breast: No history of cancer, masses,or discharges. Cardiac: HLD. Pulmonary: No COPD. GI: No GI ulcer, GI bleeding. Urinary/genital: UTI. Endocrinologic: No cousin face, craniofacial dysmorphism, polydactyly. Skeletomuscular: No muscular atrophy, deformity. Neurological: see HP. Psychiatric: Denies drug use/abuse. Otherwise, not [id number] review of systems. PHYSICAL EXAMINATION: General appearance is in no acute distress. HEENT: Normocephalic and nontraumatic. Eyes, nose, ears, and throat are unremarkable. Neck is supple. No lymphadenopathy. No crepitus. Cardiovascular: S1, S2, regular rate and rhythm. Pulmonary: Clear to auscultation bilaterally. Abdomen: Bowel sounds are positive. Extremities: No rash, lesions, or edema. No restriction of range of motion NEUROLOGICAL EXAMINATION: Awake. Sitting and eating. Partially oriented to time, and knew place and person. PERRL. EOMI. CN: no focal findings. Muscle tone: within normal. Muscle strength: 5- DTR: 2- Plantar reflex: Flexor response bilaterally Gait: Able to walk.. Sensory exam: no abnormal findings. No cerebellar signs elicited. F-T-N test fine. Objective Objective Vital Signs Date Time Temp Pulse Resp B/P (MAP) Pulse Ox O2 Delivery O2 Flow Rate FiO2 10/03/18 11:00 98.0 74 16 150/82 (104) 95 Room Air 98.0 Intake and Output 10/03/18 07:00 Intake Total 1150 ml Output Total 1 ml Balance 1149 ml Intake Oral 1150 ml Output Urine Total 1 ml # Voids 3 Vitals Signs Vitals VS - Last 72 Hours, by Label Date Time Temp Pulse Resp B/P (MAP) Pulse Ox O2 Delivery O2 Flow Rate FiO2 10/03/18 11:00 98.0 74 16 150/82 (104) 95 Room Air 98.0 10/03/18 08:47 58 180/78 10/03/18 08:00 Room Air 10/03/18 07:00 97.8 58 16 180/78 (112) 95 Room Air 97.8 10/03/18 03:41 97.6 58 17 151/70 (97) 100 Room Air 97.6 10/02/18 23:09 98.2 61 18 114/70 (85) 97 Room Air 98.2 10/02/18 20:00 Room Air 10/02/18 19:36 98.5 71 20 110/57 (74) 97 Room Air 98.5 10/02/18 14:53 98.6 66 16 113/70 (84) 94 Room Air 98.6 10/02/18 11:45 97.6 69 18 134/79 (97) Room Air 97.6 10/02/18 09:52 63 140/80 10/02/18 08:00 Room Air Laboratory Laboratory Laboratory Tests Test 10/03/18 03:30 White Blood Count 3.8 x10^3/uL (4.0-11.0) Red Blood Count 4.58 x10^6/uL (3.50-5.40) Hemoglobin 11.7 g/dL (12.0-15.5) Hematocrit 36.6 % (36.0-47.0) Mean Corpuscular Volume 80 fL (79-100) Mean Corpuscular Hemoglobin 26 pg (25-35) Mean Corpuscular Hemoglobin Concent 32 g/dL (31-37) Red Cell Distribution Width 15.0 % (11.5-14.5) Platelet Count 143 x10^3/uL (140-400) Neutrophils (%) (Auto) 35 % (31-73) Lymphocytes (%) (Auto) 50 % (24-48) Monocytes (%) (Auto) 12 % (0-9) Eosinophils (%) (Auto) 2 % (0-3) Basophils (%) (Auto) 1 % (0-3) Neutrophils # (Auto) 1.3 x10^3uL (1.8-7.7) Lymphocytes # (Auto) 1.9 x10^3/uL (1.0-4.8) Monocytes # (Auto) 0.5 x10^3/uL (0.0-1.1) Eosinophils # (Auto) 0.1 x10^3/uL (0.0-0.7) Basophils # (Auto) 0.0 x10^3/uL (0.0-0.2) Sodium Level 141 mmol/L (136-145) Potassium Level 4.1 mmol/L (3.5-5.1) Chloride Level 106 mmol/L (98-107) Carbon Dioxide Level 24 mmol/L (21-32) Anion Gap 11 (6-14) Blood Urea Nitrogen 30 mg/dL (7-20) Creatinine 1.1 mg/dL (0.6-1.0) Estimated GFR (Cockcroft-Gault) 60.5 Glucose Level 91 mg/dL (70-99) Calcium Level 9.2 mg/dL (8.5-10.1) Medication Medications Current Medications Hydrochlorothiazide (Microzide) 12.5 mg DAILY PO ; Start 10/04/18 at 09:00 Lisinopril (Prinivil) 2.5 mg BID PO ; Start 10/03/18 at 21:00 Comment Review of Relevant I have reviewed the following items remi (where applicable) has been applied. PETER TORRES MD Oct 03, 2018 17:16
[2018-10-03 19:53] VITALS: BP 125/68
[2018-10-03] MEDS: LISINOPRIL 5 MG TABLET. PO SCH (21:08)
[2018-10-03] MEDS: ATORVASTATIN CALCIUM 10 MG TABLET. PO SCH (21:08)
[2018-10-03 23:50] VITALS: BP 96/54
[2018-10-04 03:40] VITALS: BP 111/56
[2018-10-04 07:00] VITALS: BP 89/59
[2018-10-04] MEDS: DICLOFENAC SODIUM 1% TOPICAL GEL 100GM TUBE. TP SCH (08:59)
[2018-10-04] MEDS: ZIPRASIDONE 20 MG CAPSULE PO SCH (08:59)
[2018-10-04] MEDS: THIAMINE 100 MG TABLET. PO SCH (08:59)
[2018-10-04] MEDS: levETIRAcetam 500 MG TABLET PO SCH (08:59)
[2018-10-04] MEDS: ACETAMINOPHEN 500 MG TABLET PO PRN (09:00)
[2018-10-04] MEDS ORDERED: hydroCHLOROthiazide 12.5 MG CAPSULE PO SCH (09:00)
[2018-10-04] MEDS: CYANOCOBALAMIN (VITAMIN B-12) 1,000 MCG TABLET. PO SCH (09:00)
[2018-10-04] MEDS: FAMOTIDINE 20 MG TABLET. PO SCH (09:00)
[2018-10-04] MEDS: LISINOPRIL 5 MG TABLET. PO SCH (09:03)
[2018-10-04] MEDS: amLODIPine BESYLATE 10 MG TABLET PO SCH (09:05)
--- NOTE | 2018-10-04 09:18 | PDOC ---
PROGRESS NOTES Chief Complaint Chief Complaint A/P: Metabolic encephalopathy - with underlying h/o brain aneurysm and bipolar depression with psychosis - geodon and prn lorazepam - previously was metabolic and toxic, now appears to be a psychosis H/o Seizures, provoked by cocaine with h/o aneurysm - keppra and thiamine, neuro f/u in 4-6 weeks Bibasilar infiltrates - treated for HCAP with levaquin. These had resolved on CXR on 09/27/18 JOSE G - Cr jumped to 2, likely this is vasomotor, cont IVF Cocaine use/abuse likely - counseled Hx of brain aneurysm - ?s/p clipping at [facility] DM oral meds and insulin HTN - needs better control HLD - LDL is 199, needs 80mg atorvastatin or 40mg rosuvastatin self neglect FEN - ADA diet PPX - lovenox FULL CODE Inpatient for acute encephalopathy that is recurrent, likely related to primary psychiatric disorder./ cocaine abuse 1-1 sitter Needs to work with PT/OT - only wants home health Needs geriatric psych with her h/o seizures and sundowning in the future Sister is her nearest next of kin - d/w her need for skilled svcs on d/c History of Present Illness History of Present Illness 62 y/o female presents via EMS with report of continued "confusion". Patient has been run by EMS "several times" in the last 2 days for this confusion. Patient apparently lives with her elderly mother. The mother called 911 today due to being "unable to control" the patient. Patient reports she thinks she is at "[facility]" and it is 330PM and the year is "2003". Patient denies other complaint. EMS was able to walk in with patient, as she refused to lay on the gurney. EMS denies known trauma. No history of fever. Patient reports she wasn't to leave because her "family is waiting in the waiting room for me." Patient seen earlier today at [place] in the ED per [facility] review for same. Patient was found walking around in the snow outside her home. Patient apparently has a long history of altered mental status with report of probable dementia and sundowning per chart review. Plan upon discharge from ED earlier today was to trial home care with prescriptions for Geodon per me last visit. Family told EMS that patient was "not able to be controlled". 09/29: Was walking the unit despite 1-1, pulled out her IV. She is working with PT, asking to rest. She is more calm today, still believes she is at [facility]. 09/30: Today she is more calm. C/o bilateral knee pain. Does not want to get out of bed. No BM today. No CP or SOB 10/02 per my review of records had cocain use in jul 2018 Today her sister is bedside, she is much more pleasant, vitals stable. Platelets back up. WBC down. Cr down to 1.4 at risk for suden with cocaine use in elder age group 10/03 bp uncontrolled will need med adjustments 10/04 STILL HAVING PROBLEMS WITH STRENGTH, BALANCE AND COORDINATION, RIGHT KNEE PAIN, SLOW TO IMPROVE 10/04 Treatment Plan * Therapeutic Exercise * Transfer training * Gait Training * Dynamic Balance Training Frequency of Treatment Expected * 7 visits/week Duration of Treatment Expected * 1 week Discharge Recommendations * Long-Term Unit * Wireless Team Member Care Discharge Recommendation - DME * Rolling Walker needed * in order to complete ADLs * and ambulation safely Discharge Recommendation Comments * Pt would benefit from 24hr care; suspect LTC best fit Plan: Labs today, platelets were low, Cr down. Voltaren gel to knees. XRAY RIGHT KNEE Needs skilled services on discharge As above, BP control, 1-1 sitter can be d/c'd. Stop IV and IVFMarychuy Vitals Vitals Vital Signs Date Time Temp Pulse Resp B/P (MAP) Pulse Ox O2 Delivery O2 Flow Rate FiO2 10/04/18 09:05 67 107/63 10/04/18 07:00 97.8 18 99 Room Air 97.8 Physical Exam General: Alert, Cooperative, No acute distress, mild distress Lungs: Clear Abdomen: Normal bowel sounds, Soft, No tenderness, No hepatosplenomegaly, No masses Extremities: No clubbing, No cyanosis, No edema, Normal pulses, No tenderness/ swelling Skin: No rashes, No breakdown, No significant lesion Assessment and Plan Assessmemt and Plan Problems Medical Problems: (1) Acute on chronic renal insufficiency Status: Acute (2) At risk for elder neglect Status: Acute Comment Review of Relevant I have reviewed the following items remi (where applicable) has been applied. Labs Laboratory Tests Test 10/03/18 03:30 White Blood Count 3.8 x10^3/uL (4.0-11.0) Red Blood Count 4.58 x10^6/uL (3.50-5.40) Hemoglobin 11.7 g/dL (12.0-15.5) Hematocrit 36.6 % (36.0-47.0) Mean Corpuscular Volume 80 fL (79-100) Mean Corpuscular Hemoglobin 26 pg (25-35) Mean Corpuscular Hemoglobin Concent 32 g/dL (31-37) Red Cell Distribution Width 15.0 % (11.5-14.5) Platelet Count 143 x10^3/uL (140-400) Neutrophils (%) (Auto) 35 % (31-73) Lymphocytes (%) (Auto) 50 % (24-48) Monocytes (%) (Auto) 12 % (0-9) Eosinophils (%) (Auto) 2 % (0-3) Basophils (%) (Auto) 1 % (0-3) Neutrophils # (Auto) 1.3 x10^3uL (1.8-7.7) Lymphocytes # (Auto) 1.9 x10^3/uL (1.0-4.8) Monocytes # (Auto) 0.5 x10^3/uL (0.0-1.1) Eosinophils # (Auto) 0.1 x10^3/uL (0.0-0.7) Basophils # (Auto) 0.0 x10^3/uL (0.0-0.2) Sodium Level 141 mmol/L (136-145) Potassium Level 4.1 mmol/L (3.5-5.1) Chloride Level 106 mmol/L (98-107) Carbon Dioxide Level 24 mmol/L (21-32) Anion Gap 11 (6-14) Blood Urea Nitrogen 30 mg/dL (7-20) Creatinine 1.1 mg/dL (0.6-1.0) Estimated GFR (Cockcroft-Gault) 60.5 Glucose Level 91 mg/dL (70-99) Calcium Level 9.2 mg/dL (8.5-10.1) Medications Current Medications Ziprasidone (Geodon Im) 20 mg 1X ONCE IM Last administered on 09/27/18at 23:45 ; Start 09/27/18 at 23:45; Stop 09/27/18 at 23:46; Status DC Ziprasidone (Geodon Im) 20 mg STK-MED ONCE IM ; Start 09/27/18 at 23:40; Stop at 23:41; Status DC Lorazepam (Ativan) 2 mg 1X ONCE IM Last administered on 09/28/18at 00:05; Start 09/28/18 at 00:00; Stop 09/28/18 at 00:01; Status DC Lorazepam (Ativan) 2 mg STK-MED ONCE .ROUTE ; Start 09/27/18 at 23:59; Stop at 00:00; Status DC Sodium Chloride 1,000 ml @ 1,000 mls/hr 1X ONCE IV Last administered on at 03:00; Start 09/28/18 at 03:00; Stop 09/28/18 at 03:59; Status DC Ringer's Solution 1,000 ml @ 125 mls/hr Q8H IV Last administered on 09/28/18at 09:09; Start 09/28/18 at 09:00; Stop 10/01/18 at 12:07; Status DC Amlodipine Besylate (Norvasc) 10 mg DAILY PO Last administered on 10/04/18at 09: 05; Start 09/28/18 at 13:00 Cyanocobalamin (Vitamin B-12) 1,000 mcg DAILY PO Last administered on at 09:00; Start 09/28/18 at 13:00 Levetiracetam (Keppra) 500 mg BID PO Last administered on 10/04/18at 08:59; Start 09/28/18 at 13:00 Lorazepam (Ativan) 0.5 mg TID PRN PRN PO ANXIETY / AGITATION Last administered on 10/02/18at 06:42; Start 09/28/18 at 12:30 Triamterene/HCTZ (Maxzide 37.5/ 25mg) 1 tab DAILY PO Last administered on at 12:52; Start 09/28/18 at 13:00; Stop 09/28/18 at 15:50; Status DC Hydralazine HCl (Apresoline) 25 mg PRN TID PRN PO HYPERTENSION, SEE COMMENTS; Start 09/28/18 at 12:30 Famotidine (Pepcid) 20 mg DAILY PO Last administered on 10/04/18 09:00; Start 09/28/18 at 13:00 Thiamine Mononitrate (Vitamin B-1) 100 mg DAILY PO Last administered on 08:59; Start 09/28/18 at 13:00 Ziprasidone (Geodon) 20 mg BID PO Last administered on 10/04/18 08:59; Start 09/28/18 at 12:45 Albuterol Sulfate (Ventolin Neb Soln) 2.5 mg PRN Q6HRS PRN NEB SHORTNESS OF BREATH; Start 09/28/18 at 12:45 Atorvastatin Calcium (Lipitor) 10 mg QHS PO Last administered on 10/03/18 21: 08; Start 09/28/18 at 21:00 Ondansetron HCl (Zofran Odt) 4 mg PRN Q6HRS PRN PO NAUSEA/VOMITING Last administered on 09/29/18 13:59; Start 09/29/18 at 13:45 Acetaminophen (Tylenol) 500 mg PRN Q6HRS PRN PO MILD PAIN / TEMP Last administered on 10/04/18 09:00; Start 09/29/18 at 14:00 Diclofenac Sodium (Voltaren) 1 nirav BID TP Last administered on 10/04/18 08:59 ; Start 09/30/18 at 13:00 Hydrochlorothiazide (Microzide) 12.5 mg DAILY PO Last administered on 09:02; Start 10/04/18 at 09:00 Lisinopril (Prinivil) 2.5 mg BID PO Last administered on 10/04/18 09:03; Start 10/03/18 at 21:00 Active Scripts Active Geodon (Ziprasidone Hcl) 20 Mg Capsule 1 Cap PO BID Vitamin B-12 (Cyanocobalamin (Vitamin B-12)) 1,000 Mcg Tablet 1,000 Mcg PO DAILY 30 Days Levaquin (Levofloxacin) 500 Mg Tablet 500 Mg PO DAILY16 3 Days Triamterene-Hctz 37.5-25 Mg Tb (Triamterene/Hydrochlorothiazid) 1 Each Tablet 1 Tab PO DAILY 30 Days Hydralazine Hcl 25 Mg Tablet 25 Mg PO PRN TID PRN 30 Days For SBP > 150mmHg take as needed 3 times per day Amlodipine Besylate 10 Mg Tablet 10 Mg PO DAILY 30 Days Keppra (Levetiracetam) 500 Mg Tablet 500 Mg PO BID 30 Days Geodon (Ziprasidone Hcl) 20 Mg Capsule 20 Mg PO BID 30 Days Vitamin B-1 (Thiamine Mononitrate) 100 Mg Tablet 100 Mg PO DAILY 30 Days Reported Ranitidine Hcl 150 Mg Capsule 1 Cap PO BID Ativan (Lorazepam) 0.5 Mg Tablet 0.5 Mg PO PRN PRN Proair Hfa Inhaler (Albuterol Sulfate) 8.5 Gm Hfa.aer.ad 2 Puff IH PRN Q4-6HRS Vitals/I & O Vital Sign - Last 24 Hours 10/03/18 10/03/18 10/03/18 10/03/18 11:00 19:53 20:00 21:08 Temp 98.0 98.1 98.0 98.1 Pulse 74 72 72 Resp 16 18 B/P (MAP) 150/82 (104) 125/68 (87) 125/68 Pulse Ox 95 98 O2 Delivery Room Air Room Air Room Air 10/03/18 10/04/18 10/04/18 10/04/18 23:50 03:40 07:00 09:03 Temp 98.0 98.0 97.8 98.0 98.0 97.8 Pulse 64 61 59 67 Resp 18 18 18 B/P (MAP) 96/54 (68) 111/56 (74) 89/59 (69) 107/63 Pulse Ox 93 97 99 O2 Delivery Room Air Room Air Room Air 10/04/18 09:05 Pulse 67 B/P (MAP) 107/63 Intake and Output 10/03/18 10/03/18 10/04/18 15:00 23:00 07:00 Intake Total 480 ml 440 ml 50 ml Balance 480 ml 440 ml 50 ml REGINA TRAVIS MD Oct 04, 2018 09:18
--- NOTE | 2018-10-04 11:24 | NUR ---
NICOL following pt. Spoke with Sera at [facility]. NICOL notified her pt has been pleasant and has not been wandering around the last couple of days. Sera reported she will discuss with BRINDA and notify SW. Will continue to follow.
--- NOTE | 2018-10-04 14:34 | NUR ---
SW following pt. SW phoned and faxed orders to [facility]. Pt will transport via facility arranged transport between [phone]. Pt's daughter notified of plan and agreeable. Packet on chart. RN notified.
[2018-10-04 15:00] VITALS: BP 128/60
--- NOTE | 2018-10-04 15:57 | NUR ---
Patient discharged to [facility]. Report called to Ni LALA. Through report provided. Discharge packet ready for pickup. Patient dressed and all belongings with her. Awaiting transportation at this time.
--- NOTE | 2018-10-04 18:36 | PDOC ---
PROGRESS NOTES Assessment Assessment Seizure. Metabolic encephalopathy. Confusion. Renal failure. HLD. Opiate positive. RECOMMENDATIONS/PLAN: Continue Keppra 500 mg bid. Treat medical diseases. FU with PCP. FU with Neurology if has further seizures. Her HCT on 09/23/18 was no acute findings. EEG on 09/29/18: No seizure activity. Artifact noted. HISTORY OF THE PRESENT ILLNESS: 62-y-old AA female patient with history of seizure and has been treated with Keppra per docu. She has been having symptoms of mental status changes and confusion in the past a couple of days. She said she had a seizure on 09/27/18 and had 3 seizures this month. presents via EMS with report of continued "confusion". Patient has been run by EMS "several times" in the last 2 days for this confusion. Patient apparently lives with her elderly mother. The mother called 911 today due to being "unable to control" the patient. No seizures reported since here. Past Medical History Cardiovascular: HTN Pulmonary: Asthma CENTRAL NERVOUS SYSTEM: Seizure, Other GI: GERD Endocrine: Diabetes Past Surgical History No information is available. Family History No Significant Social History ALCOHOL: none Drugs: None Lives at home with her mother and daughter. Allergies Coded Allergies: Penicillins (Verified Allergy, Intermediate, N/V ITCH, 03/30/18) I S O L A T I O N *CONTACT* (Verified Allergy, Unknown, 03/29/18) carbapenem resistant PSA REVIEW OF SYSTEMS: Constitutional: No malnutrition, weight loss, cachexia. Head: No traumatic brain or head injury. Skin: No edema, or rash. Ear: No infection. Eyes: No vision loss or color blindness. Nose: No bleeding or purulent discharges. Hearing: No hearing decrease. Neck: No injury. Breast: No history of cancer, masses,or discharges. Cardiac: HLD. Pulmonary: No COPD. GI: No GI ulcer, GI bleeding. Urinary/genital: UTI. Endocrinologic: No cousin face, craniofacial dysmorphism, polydactyly. Skeletomuscular: No muscular atrophy, deformity. Neurological: see HP. Psychiatric: Denies drug use/abuse. Otherwise, not [id number] review of systems. PHYSICAL EXAMINATION: General appearance is in no acute distress. HEENT: Normocephalic and nontraumatic. Eyes, nose, ears, and throat are unremarkable. Neck is supple. No lymphadenopathy. No crepitus. Cardiovascular: S1, S2, regular rate and rhythm. Pulmonary: Clear to auscultation bilaterally. Abdomen: Bowel sounds are positive. Extremities: No rash, lesions, or edema. No restriction of range of motion NEUROLOGICAL EXAMINATION: Awake. Oriented to time, place and person. PERRL. EOMI. CN: no focal findings. Muscle tone: within normal. Muscle strength: 5- DTR: 2- Plantar reflex: Flexor response bilaterally Gait: Able to walk.. Sensory exam: no abnormal findings. No cerebellar signs elicited. F-T-N test fine. Objective Objective Vital Signs Date Time Temp Pulse Resp B/P (MAP) Pulse Ox O2 Delivery O2 Flow Rate FiO2 10/04/18 15:00 98.2 65 16 128/60 (82) 98 Room Air 98.2 Intake and Output 10/04/18 07:00 Intake Total 970 ml Balance 970 ml Intake Oral 970 ml # Voids 2 Vitals Signs Vitals VS - Last 72 Hours, by Label Date Time Temp Pulse Resp B/P (MAP) Pulse Ox O2 Delivery O2 Flow Rate FiO2 10/04/18 15:00 98.2 65 16 128/60 (82) 98 Room Air 98.2 10/04/18 09:05 67 107/63 10/04/18 09:03 67 107/63 10/04/18 08:00 Room Air 10/04/18 07:00 97.8 59 18 89/59 (69) 99 Room Air 97.8 10/04/18 03:40 98.0 61 18 111/56 (74) 97 Room Air 98.0 10/03/18 23:50 98.0 64 18 96/54 (68) 93 Room Air 98.0 10/03/18 21:08 72 125/68 10/03/18 20:00 Room Air 10/03/18 19:53 98.1 72 18 125/68 (87) 98 Room Air 98.1 10/03/18 11:00 98.0 74 16 150/82 (104) 95 Room Air 98.0 10/03/18 08:47 58 180/78 10/03/18 08:00 Room Air 10/03/18 07:00 97.8 58 16 180/78 (112) 95 Room Air 97.8 Medication Medications Current Medications Hydrochlorothiazide (Microzide) 12.5 mg DAILY PO Last administered on at 09:02; Start 10/04/18 at 09:00; Stop 10/04/18 at 17:34; Status DC Lisinopril (Prinivil) 2.5 mg BID PO Last administered on 10/04/18at 09:03; Start 10/03/18 at 21:00; Stop 10/04/18 at 17:34; Status DC Comment Review of Relevant I have reviewed the following items remi (where applicable) has been applied. PETER TORRES MD Oct 04, 2018 18:36
--- NOTE | 2018-10-20 13:36 | PDOC3 ---
Discharge Summary Date of Admission: Sep 28, 2018 Date of Discharge: Oct 04, 2018 Follow-Up: 1-2 days Admitting Diagnosis comment: discharge dx A/P: Metabolic encephalopathy - with underlying h/o brain aneurysm and bipolar depression with psychosis - geodon and prn lorazepam - previously was metabolic and toxic, appears to be psychosis H/o Seizures, provoked by cocaine with h/o aneurysm - keppra and thiamine, neuro f/u in 4-6 weeks Bibasilar infiltrates - treated for HCAP with levaquin. These had resolved on CXR on 09/27/18 JOSE G - Cr jumped to 2, likely this is vasomotor, cont IVF Cocaine use/abuse likely - counseled Hx of brain aneurysm - ?s/p clipping at [facility] DM oral meds and insulin HTN - needs better control HLD - LDL is 199, needs 80mg atorvastatin or 40mg rosuvastatin self neglect FEN - ADA diet PPX - lovenox FULL CODE Inpatient for acute encephalopathy that is recurrent, likely related to primary psychiatric disorder./ cocaine abuse 1-1 sitter Needs to work with PT/OT - only wants home health Needs geriatric psych with her h/o seizures and sundowning in the future Sister is her nearest next of kin - d/w her need for skilled svcs on d/c History of Present Illness History of Present Illness 62 y/o female presents via EMS with report of continued "confusion". Patient has been run by EMS "several times" in the last 2 days for this confusion. Patient apparently lives with her elderly mother. The mother called 911 today due to being "unable to control" the patient. Patient reports she thinks she is at "[facility]" and it is 330PM and the year is "2003". Patient denies other complaint. EMS was able to walk in with patient, as she refused to lay on the gurney. EMS denies known trauma. No history of fever. Patient reports she wasn't to leave because her "family is waiting in the waiting room for me." Patient seen earlier today at [place] in the ED per [facility] review for same. Patient was found walking around in the snow outside her home. Patient apparently has a long history of altered mental status with report of probable dementia and sundowning per chart review. Plan upon discharge from ED earlier today was to trial home care with prescriptions for Geodon per me last visit. Family told EMS that patient was "not able to be controlled". 09/29: Was walking the unit despite 1-1, pulled out her IV. She is working with PT, asking to rest. She is more calm today, still believes she is at [facility]. 09/30: Today she is more calm. C/o bilateral knee pain. Does not want to get out of bed. No BM today. No CP or SOB 10/02 per my review of records had cocaine use in jul 2018 Today her sister is bedside, she is much more pleasant, vitals stable. Platelets back up. WBC down. Cr down to 1.4 at risk for suden with cocaine use in elder age group 10/03 bp uncontrolled will need med adjustments 10/04 STILL HAVING PROBLEMS WITH STRENGTH, BALANCE AND COORDINATION, RIGHT KNEE PAIN, SLOW TO IMPROVE 10/04 Treatment Plan * Therapeutic Exercise * Transfer training * Gait Training * Dynamic Balance Training Frequency of Treatment Expected * 7 visits/week Duration of Treatment Expected * 1 week Discharge Recommendations * Assisted Unit * Skilled Nursing Care Discharge Recommendation - DME * Rolling Walker needed * in order to complete ADLs * and ambulation safely Discharge Recommendation Comments * Pt would benefit from 24hr care; suspect LTC best fit Plan: Labs today, platelets were low, Cr down. Voltaren gel to knees. XRAY RIGHT KNEE Needs skilled services on discharge d/c today As above, BP control, 1-1 sitter can be d/c'd. Stop IV and IVF, Geodon IM Vitals Vitals Vital Signs Date Time Temp Pulse Resp B/P (MAP) Pulse Ox O2 Delivery O2 Flow Rate FiO2 10/04/18 09:05 67 107/63 10/04/18 07:00 97.8 18 99 Room Air 97.8 Physical Exam General: Alert, Cooperative, No acute distress, mild distress Lungs: Clear Abdomen: Normal bowel sounds, Soft, No tenderness, No hepatosplenomegaly, No masses Extremities: No clubbing, No cyanosis, No edema, Normal pulses, No tenderness/ swelling Skin: No rashes, No breakdown, No significant lesion FINAL DIAGNOSIS Problems Medical Problems: (1) Acute on chronic renal insufficiency Status: Acute (2) At risk for elder neglect Status: Acute Brief Hospital Course Ms. Cheek is a 62 old [sex] who presented with [ acute psychosis] CONDITION AT DISCHARGE: Comment (needs snf bed unable to care for self) Discharge Medications Current Medications Ziprasidone (Geodon Im) 20 mg 1X ONCE IM Last administered on 09/27/18at 23:45 ; Start 09/27/18 at 23:45; Stop 09/27/18 at 23:46; Status DC Ziprasidone (Geodon Im) 20 mg STK-MED ONCE IM ; Start 09/27/18 at 23:40; Stop at 23:41; Status DC Lorazepam (Ativan) 2 mg 1X ONCE IM Last administered on 09/28/18at 00:05; Start 09/28/18 at 00:00; Stop 09/28/18 at 00:01; Status DC Lorazepam (Ativan) 2 mg STK-MED ONCE .ROUTE ; Start 09/27/18 at 23:59; Stop at 00:00; Status DC Sodium Chloride 1,000 ml @ 1,000 mls/hr 1X ONCE IV Last administered on at 03:00; Start 09/28/18 at 03:00; Stop 09/28/18 at 03:59; Status DC Ringer's Solution 1,000 ml @ 125 mls/hr Q8H IV Last administered on 09/28/18at 09:09; Start 09/28/18 at 09:00; Stop 10/01/18 at 12:07; Status DC Amlodipine Besylate (Norvasc) 10 mg DAILY PO Last administered on 10/04/18at 09: 05; Start 09/28/18 at 13:00; Stop 10/04/18 at 17:33; Status DC Cyanocobalamin (Vitamin B-12) 1,000 mcg DAILY PO Last administered on at 09:00; Start 09/28/18 at 13:00; Stop 10/04/18 at 17:33; Status DC Levetiracetam (Keppra) 500 mg BID PO Last administered on 10/04/18at 08:59; Start 09/28/18 at 13:00; Stop 10/04/18 at 17:33; Status DC Lorazepam (Ativan) 0.5 mg TID PRN PRN PO ANXIETY / AGITATION Last administered on 10/02/18at 06:42; Start 09/28/18 at 12:30; Stop 10/04/18 at 17:33; Status DC Triamterene/HCTZ (Maxzide 37.5/ 25mg) 1 tab DAILY PO Last administered on at 12:52; Start 09/28/18 at 13:00; Stop 09/28/18 at 15:50; Status DC Hydralazine HCl (Apresoline) 25 mg PRN TID PRN PO HYPERTENSION, SEE COMMENTS; Start 09/28/18 at 12:30; Stop 10/04/18 at 17:33; Status DC Famotidine (Pepcid) 20 mg DAILY PO Last administered on 10/04/18at 09:00; Start 09/28/18 at 13:00; Stop 10/04/18 at 17:33; Status DC Thiamine Mononitrate (Vitamin B-1) 100 mg DAILY PO Last administered on at 08:59; Start 09/28/18 at 13:00; Stop 10/04/18 at 17:33; Status DC Ziprasidone (Geodon) 20 mg BID PO Last administered on 10/04/18at 08:59; Start 09/28/18 at 12:45; Stop 10/04/18 at 17:33; Status DC Albuterol Sulfate (Ventolin Neb Soln) 2.5 mg PRN Q6HRS PRN NEB SHORTNESS OF BREATH; Start 09/28/18 at 12:45; Stop 10/04/18 at 17:33; Status DC Atorvastatin Calcium (Lipitor) 10 mg QHS PO Last administered on 10/03/18at 21: 08; Start 09/28/18 at 21:00; Stop 10/04/18 at 17:33; Status DC Ondansetron HCl (Zofran Odt) 4 mg PRN Q6HRS PRN PO NAUSEA/VOMITING Last administered on 09/29/18at 13:59; Start 09/29/18 at 13:45; Stop 10/04/18 at 17:33 ; Status DC Acetaminophen (Tylenol) 500 mg PRN Q6HRS PRN PO MILD PAIN / TEMP Last administered on 10/04/18at 09:00; Start 09/29/18 at 14:00; Stop 10/04/18 at 17:34 ; Status DC Diclofenac Sodium (Voltaren) 1 nirav BID TP Last administered on 10/04/18at 08:59 ; Start 09/30/18 at 13:00; Stop 10/04/18 at 17:34; Status DC Hydrochlorothiazide (Microzide) 12.5 mg DAILY PO Last administered on at 09:02; Start 10/04/18 at 09:00; Stop 10/04/18 at 17:34; Status DC Lisinopril (Prinivil) 2.5 mg BID PO Last administered on 10/04/18at 09:03; Start 10/03/18 at 21:00; Stop 10/04/18 at 17:34; Status DC Active Scripts Active Geodon (Ziprasidone Hcl) 20 Mg Capsule 1 Cap PO BID Vitamin B-12 (Cyanocobalamin (Vitamin B-12)) 1,000 Mcg Tablet 1,000 Mcg PO DAILY 30 Days Levaquin (Levofloxacin) 500 Mg Tablet 500 Mg PO DAILY16 3 Days Triamterene-Hctz 37.5-25 Mg Tb (Triamterene/Hydrochlorothiazid) 1 Each Tablet 1 Tab PO DAILY 30 Days Hydralazine Hcl 25 Mg Tablet 25 Mg PO PRN TID PRN 30 Days For SBP > 150mmHg take as needed 3 times per day Amlodipine Besylate 10 Mg Tablet 10 Mg PO DAILY 30 Days Keppra (Levetiracetam) 500 Mg Tablet 500 Mg PO BID 30 Days Geodon (Ziprasidone Hcl) 20 Mg Capsule 20 Mg PO BID 30 Days Vitamin B-1 (Thiamine Mononitrate) 100 Mg Tablet 100 Mg PO DAILY 30 Days Reported Ranitidine Hcl 150 Mg Capsule 1 Cap PO BID Ativan (Lorazepam) 0.5 Mg Tablet 0.5 Mg PO PRN PRN Proair Hfa Inhaler (Albuterol Sulfate) 8.5 Gm Hfa.aer.ad 2 Puff IH PRN Q4-6HRS Allergies Allergies Coded Allergies Type Severity Reaction Last Updated Verified Penicillins Allergy Intermediate N/V ITCH 03/30/18 Yes I S O L A T I O N *CONTACT* Allergy Unknown 03/29/18 Yes Disposition/Orders: Other (to snf bed) Patient Instructions d/c planning 40 min REGINA TRAVIS MD Oct 20, 2018 13:35
== END 2018-10-04 17:22 | DRG 682 ==
LOC: ER 23:08 → 6 SOUTH 09-28 00:48
PROVIDERS: ADMIT Internal Medicine; ATTEND Internal Medicine
DX: N17.0 Acute kidney failure with tubular necrosis (principal); G93.41 Metabolic encephalopathy; F31.5 Bipolar disorder, current episode depressed, severe, with psychotic features; I67.1 Cerebral aneurysm, nonruptured; E78.5 Hyperlipidemia, unspecified; M19.90 Unspecified osteoarthritis, unspecified site; F17.210 Nicotine dependence, cigarettes, uncomplicated; E11.9 Type 2 diabetes mellitus without complications; K21.9 Gastro-esophageal reflux disease without esophagitis; J45.909 Unspecified asthma, uncomplicated; F14.10 Cocaine abuse, uncomplicated; I10 Essential (primary) hypertension; Z88.0 Allergy status to penicillin; Z91.041 Radiographic dye allergy status; Z87.440 Personal history of urinary (tract) infections; Z90.710 Acquired absence of both cervix and uterus; Z79.899 Other long term (current) drug therapy
CPT/HCPCS: 36415; 71045; 80048; 80053; 80069; 80307; 81001; 82140; 82553; 83605; 83735; 83880; 84484; 85025; 85610; 85730; 93005; 95816; 96372; G0480; J2060; J3486; J7030; J7120; Q0162; 97110; 97112; 97116; 97530; 97535; 99285-25

== ENCOUNTER → 2020-01-25 | Outpatient (CLI) | payer OTHER ==
[~2020-01-25] MED LIST changes: +CYAN-25 PO; -CYAN10005 PO; +IOHEXOL 240 MG/ML 50ML VIAL. PO ONE; +IOHEXOL 300 MG/ML 100ML VIAL. IV ONE; +OMEP40CA45 PO; -OMEP40CA5 PO; +SIMV10TA15 PO; -SIMV10TA3 PO
--- NOTE | 2020-01-25 13:51 | RAD ---
Exam: CT abdomen/pelvis with intravenous contrast Indication: Restaging colon cancer Comparison: CT abdomen and pelvis 03/23/2018 Technique: Helical CT imaging performed of the abdomen and pelvis after the intravenous administration of 60 mL Omnipaque 300 intravenous contrast. Sagittal and coronal reformats were obtained. One or more of the following individualized dose reduction techniques were utilized for this examination: 1. Automated exposure control 2. Adjustment of the mA and/or kV according to patient size 3. Use of iterative reconstruction technique. Findings: Lower chest: Mild atelectasis in the lower lobes. The heart is normal in size. Liver: There is new hepatomegaly with the liver measuring 21.6 cm in length. There are innumerable new metastatic lesions throughout the liver, predominantly throughout the right hepatic lobe. A right hepatic lobe mass or conglomeration of masses at the dome measures 10.2 x 7.8 cm. Right hepatic lobe mass or conglomeration of masses inferiorly measures 10.1 x 9.4 cm. There is new small amount of perihepatic fluid anteriorly and inferomedially. The right hepatic vein and right portal veins are narrowed but appear patent. Main portal vein, splenic vein, and superior mesenteric veins are patent. Gallbladder/Biliary Tree: Gallbladder is contracted. No biliary duct dilatation. Pancreas: Pancreatic duct is prominent measuring 3 mm, decreased from prior exam. Spleen: Normal. Adrenal Glands: Normal. Kidneys/Ureters/Bladder: Kidneys are normal in size and enhance symmetrically. No hydronephrosis. Ureters are nondistended. Urinary bladder is normal. Reproductive Organs: Uterus is surgically absent. Stomach, small bowel, and colon: Stomach and small bowel are normal. Abnormal segment of colon near the hepatic flexure on prior exam is longer present. Large volume of stool in the left hemicolon. Vasculature: Normal caliber abdominal aorta. Mild calcified aortoiliac atherosclerosis. Lymph Nodes: Normal. Peritoneum and retroperitoneum: Small amount of perihepatic fluid. No large volume ascites. No pneumoperitoneum. Bones: No acute osseous abnormality. Mild osteoarthrosis of the hips. IMPRESSION: 1. Since 03/23/2018, there are innumerable new hepatic metastases, predominantly throughout the right hepatic lobe. This results in narrowing of the right hepatic and portal veins, however they appear patent. Small amount of perihepatic fluid is new. 2. Slightly decreased but persistent prominence of the main pancreatic duct. Electronically signed by: Eli Marte MD (01/25/2020 1:48 PM) [id number]
== END ==
LOC: CT 09:01
PROVIDERS: ATTEND Internal Medicine Hematology & Oncology
DX: C18.2 Malignant neoplasm of ascending colon (principal); C78.7 Secondary malignant neoplasm of liver and intrahepatic bile duct; I70.0 Atherosclerosis of aorta; M16.0 Bilateral primary osteoarthritis of hip; K82.0 Obstruction of gallbladder; R16.0 Hepatomegaly, not elsewhere classified; J98.11 Atelectasis
CPT/HCPCS: 74177; Q9966; Q9967

== ENCOUNTER 2020-02-01 06:50 | Outpatient (CLI) | payer OTHER ==
[2020-02-01] VITALS (7 sets, daily range): BP systolic 89–108; BP diastolic 61–75
[~2020-02-01] VITALS: Ht 165.1 cm; Wt 49.9 kg
[~2020-02-01 06:50] MED LIST changes: -IOHEXOL 240 MG/ML 50ML VIAL. PO ONE; -IOHEXOL 300 MG/ML 100ML VIAL. IV ONE
[2020-02-01 07:37] LABS: BASO # 0.1 x10^3/uL (0.0-0.2); BASO % 2 % (0-3); EOS # 0.1 x10^3/uL (0.0-0.7); EOS % 2 % (0-3); HEMATOCRIT 37.2 % (36.0-47.0); HEMOGLOBIN 12.1 g/dL (12.0-15.5); LYMPH # 1.3 x10^3/uL (1.0-4.8); LYMPH % 20 % (24-48); MEAN CORPUSCULAR HEMOGLOBIN 26 pg (25-35); MEAN CORPUSCULAR HGB CONC 33 g/dL (31-37); MEAN CORPUSCULAR VOLUME 81 fL (79-100); MONO # 0.7 x10^3/uL (0.0-1.1); MONO % 10 % (0-9); NEUT # 4.1 x10^3/uL (1.8-7.7); NEUT % 66 % (31-73); PLATELET COUNT 207 x10^3/uL (140-400); RED BLOOD COUNT 4.62 x10^6/uL (3.50-5.40); RED CELL DISTRIBUTION WIDTH 13.9 % (11.5-14.5); WHITE BLOOD COUNT 6.3 x10^3/uL (4.0-11.0)
[2020-02-01 07:48] LABS: PROTHROMBIN TIME PATIENT 13.4 SEC (11.7-14.0)
[2020-02-01] MEDS ORDERED: FERR325T14 PO (08:07)
[2020-02-01] MEDS ORDERED: LEVE500T21 PO (08:07)
[2020-02-01] MEDS ORDERED: HYDR-2868 PO (08:07)
[2020-02-01] MEDS ORDERED: MULT-130 PO (08:07)
[2020-02-01] MEDS ORDERED: CYAN25008 PO (08:07)
[2020-02-01] MEDS ORDERED: Vitamin D3 PO (08:07)
[2020-02-01] MEDS ORDERED: LIDOCAINE 1%/EPI 1:100,000 20 ML VIAL. ONE (08:16)
[2020-02-01] MEDS ORDERED: HEPARIN PF 500 UNIT/5 ML DISP.SYRIN. IVP ONE ×2 (08:16→09:00)
[2020-02-01] MEDS ORDERED: VANCOMYCIN 1GM IVPB FOR OMNI 250 ML ONE (08:37)
[2020-02-01] MEDS ORDERED: MIDAZOLAM HCL/PF 2 MG/2 ML VIAL. ONE (08:38)
[2020-02-01] MEDS ORDERED: fentaNYL PF VIAL 100 MCG/2 ML VIAL ONE (08:38)
[2020-02-01] MEDS ORDERED: fentaNYL PF VIAL 100 MCG/2 ML VIAL IV ONE (09:00)
[2020-02-01] MEDS ORDERED: MIDAZOLAM HCL/PF 2 MG/2 ML VIAL. IV ONE (09:00)
[2020-02-01] MEDS ORDERED: LIDOCAINE 1%/EPI 1:100,000 20 ML VIAL. INJ ONE (09:00)
[2020-02-01] MEDS ORDERED: VANCOMYCIN 1GM IVPB FOR OMNI 250 ML IV ONE (09:00)
--- NOTE | 2020-02-01 11:39 | NUR ---
Discharge Note: EBONI PACHECO Discharge instructions and discharge home medications reviewed with Family Member and a copy given. All questions have been answered and understanding verbalized. Dressing to R chest remains clean and dry, able to tolerate PO and ambulated with steady gait. The following instructions and handouts were given: port placement, portacath take home packet and sedation Discontinued lines and drains: Peripheral IV intact. Patient discharged to Home or Self Care with Family Member via Wheelchair JANN LALA Addendum: 02/01/20 at 1145 by VISHAL SHARP RN Amended: Links added.
--- NOTE | 2020-02-01 16:27 | RAD ---
PROCEDURE: Fluoroscopic and Ultrasound Guided Right Port Placement The procedure, risk and complications to include bleeding, infection, air embolism, pneumothorax and arrhythmia, were discussed at length with the patient and her sister and they understood and wished to proceed. All questions were answered. Consent form signed. The right neck and chest region were prepped and draped using maximal sterile technique and one percent (1%) Xylocaine with epinephrine was used for local anesthesia. Ultrasound-guided access: Ultrasound evaluation showed the right jugular vein to be patent and compressible and under ultrasound guidance a single wall puncture was made followed by tract dilation and placement of a sheath. An ultrasound image was saved and sent to PACS. Next, an incision was made in an infraclavicular location and a pocket created. The pocket was washed with copious amounts of saline until dry. A tunnel was created between the pocket and neck incision and the port connected and tested for function and is intact. A single lumen Bard Power Port was inserted into the pocket followed by catheter placement into the superior cavoatrial junction under fluoroscopic guidance. The port was flushed with 100 units/ml DETENTION Heparin. Fluoroscopic spot image: One view. The chest port is in a satisfactory location and the catheter tip at the superior cavoatrial junction. Negative for pneumothorax. The deep subcutaneous layers were closed with interrupted 3-0 Vicryl followed by 4-0 Vicryl running subcutaneous sutures. Steri-Strips were applied and the wounds dressed. Complications: None Contrast: None Sedation: Conscious sedation for 40 mins. Intravenous fentanyl and Versed were administered. The patient was monitored by pulse oximetry and cardiovascular monitoring equipment and observed by the nurses in attendance. Fluoroscopy time: 1.5 mins DAP: 1 Gycm2 Exposures: 1 The patient tolerated the procedure well and was observed in the recovery area. Conclusion: Ultrasound and fluoroscopic guided right single lumen port-A-Cath placement. Port is okay to use.
== END 2020-02-01 11:05 | disposition home or self-care (01) ==
LOC: INTRAD 06:50
PROVIDERS: ATTEND Internal Medicine Hematology & Oncology
DX: C18.2 Malignant neoplasm of ascending colon (principal); Z91.041 Radiographic dye allergy status; Z88.0 Allergy status to penicillin
CPT/HCPCS: 36415; 36561; 76937; 77001; 85025; 85610; C1751; C1769; C1892; J1642; J2250; J3010; J3370; J3490; 99152; 99153

== ENCOUNTER → 2020-02-05 | Outpatient (CLI) | payer OTHER ==
[2020-02-01 11:00] VITALS: BP 108/61
[~2020-02-05] MED LIST changes: +CYAN25008 PO; +FERR325T14 PO; +LEVE500T21 PO; +MULT-130 PO; +Vitamin D3 PO
[2020-02-05 09:30] LABS: BASO # 0.1 x10^3/uL (0.0-0.2); BASO % 2 % (0-3); EOS # 0.2 x10^3/uL (0.0-0.7); EOS % 3 % (0-3); HEMATOCRIT 35.4 % (36.0-47.0); HEMOGLOBIN 11.7 g/dL (12.0-15.5); LYMPH # 1.5 x10^3/uL (1.0-4.8); LYMPH % 22 % (24-48); MEAN CORPUSCULAR HEMOGLOBIN 26 pg (25-35); MEAN CORPUSCULAR HGB CONC 33 g/dL (31-37); MEAN CORPUSCULAR VOLUME 80 fL (79-100); MONO # 0.7 x10^3/uL (0.0-1.1); MONO % 11 % (0-9); NEUT # 4.2 x10^3/uL (1.8-7.7); NEUT % 63 % (31-73); PLATELET COUNT 253 x10^3/uL (140-400); RED BLOOD COUNT 4.43 x10^6/uL (3.50-5.40); RED CELL DISTRIBUTION WIDTH 14.2 % (11.5-14.5); WHITE BLOOD COUNT 6.6 x10^3/uL (4.0-11.0)
[2020-02-05 09:40] LABS: CALCIUM 9.2 mg/dL (8.5-10.1); CREATININE 1.6 mg/dL (0.6-1.0); POTASSIUM 4.2 mmol/L (3.5-5.1)
[2020-02-05 09:53] LABS: ALBUMIN 2.7 g/dL (3.4-5.0); DIRECT BILIRUBIN 0.3 mg/dL (0.0-0.2); TOTAL BILIRUBIN 0.5 mg/dL (0.2-1.0); TOTAL PROTEIN 7.2 g/dL (6.4-8.2)
== END ==
LOC: ONCLAB 09:05
PROVIDERS: ATTEND Physician Assistant
DX: C18.2 Malignant neoplasm of ascending colon (principal)
CPT/HCPCS: 36415; 80048; 80076; 82378; 83615; 85025

== ENCOUNTER → 2020-02-12 | Outpatient (CLI) | payer OTHER ==
[2020-02-01 11:00] VITALS: BP 108/61
[~2020-02-12] MED LIST changes: +ACET325T9 PO; +PANT40TA77 PO; +PROC10TA57 PO; +TRAZ-118 PO
[2020-02-12 10:39] LABS: BASO # 0.1 x10^3/uL (0.0-0.2); BASO % 1 % (0-3); EOS # 0.1 x10^3/uL (0.0-0.7); EOS % 1 % (0-3); HEMATOCRIT 36.7 % (36.0-47.0); HEMOGLOBIN 12.1 g/dL (12.0-15.5); LYMPH # 1.6 x10^3/uL (1.0-4.8); LYMPH % 19 % (24-48); MEAN CORPUSCULAR HEMOGLOBIN 27 pg (25-35); MEAN CORPUSCULAR HGB CONC 33 g/dL (31-37); MEAN CORPUSCULAR VOLUME 81 fL (79-100); MONO # 0.4 x10^3/uL (0.0-1.1); MONO % 5 % (0-9); NEUT # 6.3 x10^3/uL (1.8-7.7); NEUT % 74 % (31-73); PLATELET COUNT 195 x10^3/uL (140-400); RED BLOOD COUNT 4.53 x10^6/uL (3.50-5.40); RED CELL DISTRIBUTION WIDTH 14.5 % (11.5-14.5); WHITE BLOOD COUNT 8.6 x10^3/uL (4.0-11.0)
[2020-02-12 10:49] LABS: CALCIUM 9.3 mg/dL (8.5-10.1); CREATININE 1.7 mg/dL (0.6-1.0); GFR 36.4; POTASSIUM 4.2 mmol/L (3.5-5.1)
[2020-02-12 11:03] LABS: ALBUMIN 2.8 g/dL (3.4-5.0); DIRECT BILIRUBIN 0.3 mg/dL (0.0-0.2); TOTAL BILIRUBIN 0.6 mg/dL (0.2-1.0); TOTAL PROTEIN 7.7 g/dL (6.4-8.2)
[2020-02-12 14:18] LABS: BILIRUBIN,URINE NEGATIVE (NEG); CLARITY,URINE CLEAR; COLOR,URINE YELLOW; NITRITE,URINE NEGATIVE (NEG); PROTEIN,URINE NEGATIVE (NEG-TRACE); UROBILINOGEN,URINE 0.2 mg/dL (0.2 mg/dL)
[2020-02-12 14:26] LABS: BACTERIA,URINE FEW /HPF (0-FEW); SQUAMOUS EPITHELIAL CELL,UR OCC /LPF
== END ==
LOC: ONCLAB 10:18
PROVIDERS: ATTEND Physician Assistant
DX: C18.2 Malignant neoplasm of ascending colon (principal); Z79.899 Other long term (current) drug therapy
CPT/HCPCS: 36415; 80048; 80076; 81001; 83615; 84550; 85025; 87086

== ENCOUNTER → 2020-02-19 | Outpatient (CLI) | payer OTHER ==
[2020-02-01 11:00] VITALS: BP 108/61
[~2020-02-19] MED LIST changes: -ACET325T9 PO; -TRAZ-118 PO
[2020-02-19 10:16] LABS: BASO # 0.1 x10^3/uL (0.0-0.2); BASO % 2 % (0-3); EOS # 0.1 x10^3/uL (0.0-0.7); EOS % 2 % (0-3); HEMATOCRIT 30.9 % (36.0-47.0); HEMOGLOBIN 10.1 g/dL (12.0-15.5); LYMPH % 30 % (24-48); MEAN CORPUSCULAR HEMOGLOBIN 26 pg (25-35); MEAN CORPUSCULAR HGB CONC 33 g/dL (31-37); MEAN CORPUSCULAR VOLUME 80 fL (79-100); MONO # 0.5 x10^3/uL (0.0-1.1); MONO % 14 % (0-9); NEUT # 1.8 x10^3/uL (1.8-7.7); NEUT % 53 % (31-73); PLATELET COUNT 199 x10^3/uL (140-400); RED BLOOD COUNT 3.85 x10^6/uL (3.50-5.40); WHITE BLOOD COUNT 3.4 x10^3/uL (4.0-11.0)
[2020-02-19 10:32] LABS: CREATININE 1.5 mg/dL (0.6-1.0)
[2020-02-19 10:52] LABS: ALBUMIN 2.5 g/dL (3.4-5.0); DIRECT BILIRUBIN 0.3 mg/dL (0.0-0.2); TOTAL BILIRUBIN 0.4 mg/dL (0.2-1.0); TOTAL PROTEIN 6.8 g/dL (6.4-8.2)
== END | disposition home or self-care (01) ==
LOC: ONCLAB 09:45
PROVIDERS: ATTEND Physician Assistant
DX: C18.2 Malignant neoplasm of ascending colon (principal)
CPT/HCPCS: 36415; 80048; 80076; 83615; 84550; 85025

== ENCOUNTER 2020-02-23 21:37 | Inpatient (IN) | payer OTHER ==
[~2020-02-23] VITALS: Ht 165.1 cm; Wt 49.7 kg
[~2020-02-23 21:37] MED LIST changes: -PANT40TA77 PO; -PROC10TA57 PO
--- NOTE | 2020-02-23 22:33 | PHYS DOC ---
Past Medical History Past Medical History: Arthritis, Hypertension, Seizure, UTI Additional Past Medical Histor: cocaine abuse, severe protein malnutrition. Past Surgical History: Cholecystectomy, Hysterectomy, Other Additional Past Surgical Histo: perforated ulcer Smoking Status: Current Every Day Smoker Alcohol Use: Heavy Drug Use: Cocaine General Adult EDM: Chief Complaint: WEAKNESS/GENERALIZED HPI: HPI: Patient is a 64 year old female brought in by ems with generalized weakness patient is on chemo for colon cancer. She last had chemo yesterday and she has been weaker ever since. Patient denies any vomiting or any pain no chest pain no abdominal pain no fever no shortness of breath no coughing just generally weak she says she is eating okay her sister really wanted her to come in to get checked out. The sister felt that she really could not get out of bed and she is much weaker than normal. Review of Systems: Review of Systems: Constitutional: Denies fever or chills. [] Eyes: Denies change in visual acuity. [] HENT: Denies nasal congestion or sore throat. [] Respiratory: Integument: Denies rash. [] Neurologic: Denies headache, focal weakness or sensory changes. [] Endocrine: Denies polyuria or polydipsia. [] Lymphatic: Denies swollen glands. [] Psychiatric: Denies depression or anxiety. [] Heart Score: Risk Factors: Risk Factors: DM, Current or recent (<one month) smoker, HTN, HLP, family history of CAD, obesity. Risk Scores: Score 0 - 3: 2.5% MACE over next 6 weeks - Discharge Home Score 4 - 6: 20.3% MACE over next 6 weeks - Admit for Clinical Observation Score 7 - 10: 72.7% MACE over next 6 weeks - Early Invasive Strategies Current Medications: Current Medications Medications (Trade) Dose Ordered Sig/Zee Start Time Stop Time Status Last Admin Dose Admin Sodium Chloride 1,000 ml @ 1,000 mls/hr 1X ONCE 02/23/20 23:00 02/23/20 23:59 Allergies: Allergies: Allergies Coded Allergies Type Severity Reaction Last Updated Verified Penicillins Allergy Intermediate N/V ITCH 03/30/18 Yes I S O L A T I O N *CONTACT* Allergy Unknown 03/29/18 Yes Physical Exam: PE: Constitutional: Well developed, cachectic in mild distress HENT: Normocephalic, atraumatic, bilateral external ears normal, oropharynx dry t, no oral exudates, nose normal. [] Eyes: PERRLA, EOMI, conjunctiva normal, no discharge. [] Neck: Normal range of motion, no tenderness, supple, no stridor. [] Cardiovascular:Heart rate regular rhythm, 4 out of 6 systolic murmur noted Lungs & Thorax: Bilateral breath sounds clear to auscultation [] Abdomen: Bowel sounds normal, soft, no tenderness, no masses, no pulsatile masses. [] Skin: Warm, dry, no erythema, no rash. [] Back: No tenderness, no CVA tenderness. [] Extremities: No tenderness, no cyanosis, no clubbing, ROM intact, no edema. [] Neurologic: Alert and oriented X 3, normal motor function, normal sensory function, no focal deficits noted. [] Psychologic: Affect normal, judgement normal, mood normal. [] Current Patient Data: Vital Signs: Vital Signs Date Time Temp Pulse Resp B/P (MAP) Pulse Ox O2 Delivery O2 Flow Rate FiO2 02/23/20 21:46 98.7 83 12 112/57 (75) 96 Room Air 98.7 EKG: EKG: [] EKG shows normal sinus rhythm with a rate of 81 no STEMI or obvious ischemia was identified. Radiology/Procedures: Radiology/Procedures: [] Impression: FINDINGS: Right anterior chest wall with catheter tip at the SVC. The cardiomediastinal silhouette and pulmonary vessels are within normal limits. The lung and pleural spaces are clear. IMPRESSION: No acute cardiopulmonary process. Electronically signed by: Maurice Moreira MD (02/23/2020 10:44 PM) [id number] DICTATED and SIGNED BY: MAURICE MOREIRA MD DATE: 02/23/20 2244 Course & Med Decision Making: Course & Med Decision Making Pertinent Labs and Imaging studies reviewed. (See chart for details) [] 64-year-old female with a history of colon cancer seizure disorder multiple other issues who is on chemo is coming in with generalized weakness general ER work-up was performed Patient found to have a urinary tract infection unable to ambulate on her own patient was given hydration creatinine is mildly elevated but at baseline admit to the service of Dr. Chin, uti unable to ambulate, neutropenia, lactic pending. Patient does have neutropenia but does not have a fever recent urine culture showed no growth so patient was given IV Levaquin patient had significant hives with previous dose of penicillin so we will avoid that for now. Dragon Disclaimer: Dragbrock Disclaimer: This electronic medical record was generated, in whole or in part, using a voice recognition dictation system. Departure Departure Impression: Primary Impression: UTI (urinary tract infection) Disposition: ADMITTED INPATIENT Admitting Physician: MIGUEL Condition: STABLE Referrals: JOHN DORANTES MD (PCP) Justicifation of Admission Dx: Justifications for Admission: Justification of Admission Dx: Yes Comments: uti with neutropenia ROE PHELPS MD Feb 23, 2020 22:33
--- NOTE | 2020-02-23 22:47 | RAD ---
Exam: Chest one view INDICATION: Weakness TECHNIQUE: Frontal view of the chest Comparisons: 09/27/2018 FINDINGS: Right anterior chest wall with catheter tip at the SVC. The cardiomediastinal silhouette and pulmonary vessels are within normal limits. The lung and pleural spaces are clear. IMPRESSION: No acute cardiopulmonary process. Electronically signed by: Maurice Archuleta MD (02/23/2020 10:44 PM) [id number]
[2020-02-23 22:56] LABS: BASO % 2 % (0-3); EOS % 1 % (0-3); HEMOGLOBIN 9.4 g/dL (12.0-15.5); LYMPH # 1.3 x10^3/uL (1.0-4.8); LYMPH % 48 % (24-48); MEAN CORPUSCULAR HEMOGLOBIN 27 pg (25-35); MEAN CORPUSCULAR HGB CONC 34 g/dL (31-37); MEAN CORPUSCULAR VOLUME 81 fL (79-100); MONO # 0.2 x10^3/uL (0.0-1.1); MONO % 9 % (0-9); NEUT % 40 % (31-73); PLATELET COUNT 181 x10^3/uL (140-400); RED BLOOD COUNT 3.47 x10^6/uL (3.50-5.40); RED CELL DISTRIBUTION WIDTH 15.3 % (11.5-14.5); WHITE BLOOD COUNT 2.6 x10^3/uL (4.0-11.0)
[2020-02-23] MEDS ORDERED: IV NORMAL SALINE 1000ML BAG 1,000 ML IV ONE (23:00)
[2020-02-23 23:05] LABS: CALCIUM 8.2 mg/dL (8.5-10.1); CREATININE 1.3 mg/dL (0.6-1.0); GFR 49.6; POTASSIUM 4.4 mmol/L (3.5-5.1)
[2020-02-23 23:12] LABS: ALBUMIN 2.4 g/dL (3.4-5.0); ALBUMIN/GLOBULIN RATIO 0.7 (1.0-1.7); MAGNESIUM 1.6 mg/dL (1.8-2.4); TOTAL BILIRUBIN 0.4 mg/dL (0.2-1.0); TOTAL PROTEIN 5.7 g/dL (6.4-8.2)
[2020-02-23 23:16] LABS: BILIRUBIN,URINE NEGATIVE (NEG); CLARITY,URINE CLEAR; COLOR,URINE YELLOW; NITRITE,URINE NEGATIVE (NEG); PH,URINE 5.5 (<5.0-8.0); PROTEIN,URINE NEGATIVE (NEG-TRACE); UROBILINOGEN,URINE 0.2 mg/dL (0.2 mg/dL)
[2020-02-23 23:28] LABS: BACTERIA,URINE MODERATE /HPF (0-FEW); SQUAMOUS EPITHELIAL CELL,UR FEW /LPF
[2020-02-24] MEDS ORDERED: levOFLOXacin PER PHARMACY. MC PRN
[2020-02-24] MEDS ORDERED: ZOLPIDEM 5 MG TABLET. PO ONE (00:30)
[2020-02-24] MEDS ORDERED: IV NORMAL SALINE 1000ML BAG 1,000 ML IV SCH (00:30)
[2020-02-24 02:00] VITALS: BP 107/71
--- NOTE | 2020-02-24 02:00 | NUR ---
ADMIT NOTE The patient, EBONI PACHECO, 64 y/o, F admitted by MARSHALL JEFF MD, was given written information regarding hospital policies, unit procedures and contact persons. Patient placed in contact and neutropenic precautions; Infection Control nurse consulted per protocol. Patient arrived to unit via gurney from ED. Patient A&O x3, afebrile and vitals stable. Patient orientated to room and plan of care discussed. Home medications and known allergies verified with patient. Patient declined SCDs at this time. Patient now in bed, call light within reach, bed in lowest/locked position, and no other needs voiced at this time.
[2020-02-24] MEDS ORDERED: PROC10TA57 PO (05:21)
[2020-02-24] MEDS ORDERED: PANT40TA77 PO (05:21)
[2020-02-24 07:59] VITALS: BP 114/78
[2020-02-24 08:16] LABS: BASO % 2 % (0-3); EOS % 1 % (0-3); HEMATOCRIT 27.2 % (36.0-47.0); LYMPH # 0.9 x10^3/uL (1.0-4.8); LYMPH % 34 % (24-48); MEAN CORPUSCULAR HEMOGLOBIN 27 pg (25-35); MEAN CORPUSCULAR HGB CONC 33 g/dL (31-37); MEAN CORPUSCULAR VOLUME 81 fL (79-100); MONO # 0.3 x10^3/uL (0.0-1.1); MONO % 12 % (0-9); NEUT # 1.4 x10^3/uL (1.8-7.7); NEUT % 51 % (31-73); PLATELET COUNT 175 x10^3/uL (140-400); RED BLOOD COUNT 3.36 x10^6/uL (3.50-5.40); RED CELL DISTRIBUTION WIDTH 15.1 % (11.5-14.5); WHITE BLOOD COUNT 2.7 x10^3/uL (4.0-11.0)
--- NOTE | 2020-02-24 10:41 | PDOC1 ---
History and Physical Date of Admission Date of Admission DATE: 02/24/20 TIME: 10:41 Identification/Chief Complaint Chief Complaint SEEN IN ER , 64 year old female brought in by ems with generalized weakness patient is on chemo for colon cancer. She last had chemo 02/20 and she has been weaker ever since. Patient denies any vomiting or any pain no chest pain no abdominal pain no fever no shortness of breath no coughing just generally weak she says she is eating okay her sister really wanted her to come in to get checked out. sister felt that she really could not get out of bed and she is much weaker than normal. SEEN IN ROOM WITH FAMILY, SEEMS CONFUSED TO DETAILS Past Medical History Past Medical History Past Medical History Past Medical History Past Medical History: Arthritis, Hypertension, Seizure, UTI Additional Past Medical Histor: cocaine abuse, severe protein malnutrition. Past Surgical History: Cholecystectomy, Hysterectomy, Other Additional Past Surgical Histo: perforated ulcer Smoking Status: Current Every Day Smoker Alcohol Use: Heavy Drug Use: Cocaine FHX //SUBSTANCE ABUSE Cardiovascular: HTN Pulmonary: Asthma CENTRAL NERVOUS SYSTEM: Seizure, Other GI: GERD Endocrine: Diabetes Past Surgical History Past Surgical History: Other Family History Family History: Alcohol Abuse, No Significant Social History Smoke: <1 pack per day ALCOHOL: heavy Drugs: None, Cocaine Current Problem List Problem List Problems Medical Problems: (1) UTI (urinary tract infection) Status: Acute Current Medications Current Medications Current Medications Sodium Chloride 1,000 ml @ 1,000 mls/hr 1X ONCE IV Last administered on 02/23/20at 21:30; Start 02/23/20 at 23:00; Stop 02/23/20 at 23:59; Status DC Levofloxacin/ Dextrose (Levaquin Per Pharmacy) 1 each PRN DAILY PRN MC SEE COMMENTS; Start 02/24/20 at 00:00 Zolpidem Tartrate (Ambien) 5 mg 1X ONCE PO Last administered on 02/24/20at 01:55; Start 02/24/20 at 00:30; Stop 02/24/20 at 00:31; Status DC Sodium Chloride 1,000 ml @ 75 mls/hr [id number] IV Last administered on 02/24/20at 01:57; Start 02/24/20 at 00:30; Stop 02/24/20 at 00:31; Status DC Levofloxacin/ Dextrose 100 ml @ 100 mls/hr 1X ONCE IV Last administered on 02/24/20at 00:45; Start 02/24/20 at 00:30; Stop 02/24/20 at 01:29; Status DC Levofloxacin/ Dextrose 50 ml @ 50 mls/hr Q24H IV ; Start 02/24/20 at 23:00 Active Scripts Active Geodon (Ziprasidone Hcl) 20 Mg Capsule 1 Cap PO BID Triamterene-Hctz 37.5-25 Mg Tb (Triamterene/Hydrochlorothiazid) 1 Each Tablet 1 Tab PO DAILY 30 Days Hydralazine Hcl 25 Mg Tablet 25 Mg PO PRN TID PRN 30 Days For SBP > 150mmHg take as needed 3 times per day Amlodipine Besylate 10 Mg Tablet 10 Mg PO DAILY 30 Days Vitamin B-1 (Thiamine Mononitrate) 100 Mg Tablet 100 Mg PO DAILY 30 Days Reported Compazine (Prochlorperazine Maleate) 10 Mg Tablet 1 Tab PO Q6HRS 7 Days Protonix (Pantoprazole Sodium) 40 Mg Tablet.dr 40 Mg PO DAILYAC Gummi Bear Multivitamin (Multivitamin) 1 Each Tab.chew 1 Each PO DAILY Ferrous Sulfate 325 Mg Tablet 1 Tab PO DAILY Levetiracetam 500 Mg Tab.er.24h 1 Tab PO BID 30 Days Hydralazine Hcl 25 Mg Tablet 1 Tab PO TID [Vitamin D3] 25 Mcg PO DAILY Vitamin B12 (Cyanocobalamin (Vitamin B-12)) 2,500 Mcg Tablet 1 Tab PO DAILY 30 Days Ranitidine Hcl 150 Mg Capsule 1 Cap PO BID Ativan (Lorazepam) 0.5 Mg Tablet 0.5 Mg PO PRN PRN Proair Hfa Inhaler (Albuterol Sulfate) 8.5 Gm Hfa.aer.ad 2 Puff IH PRN Q4-6HRS Allergies Allergies: Coded Allergies: Penicillins (Verified Allergy, Intermediate, N/V ITCH, 03/30/18) I S O L A T I O N *CONTACT* (Verified Allergy, Unknown, 03/29/18) carbapenem resistant PSA ROS Review of System Review of Systems: Constitutional: Denies fever or chills. [] Eyes: Denies change in visual acuity. [] HENT: Denies nasal congestion or sore throat. [] Respiratory: Integument: Denies rash. [] Neurologic: Denies headache, focal weakness or sensory changes. [] Endocrine: Denies polyuria or polydipsia. [] Lymphatic: Denies swollen glands. [] Psychiatric: Denies depression or anxiety. [] 14 pt ros otherwise neg General: YES: Fatigue, Malaise PSYCHOLOGICAL ROS: YES: Memory difficulties HEENT: No: Heacaches, Visual Changes, Hearing change, Nasal congestion, Nasal discharge, Oral lesions, Sinus pain, Sore Throat, Epistaxis, Sneezing, Snoring, Tinnitus, Vertigo, Vocal changes, Other Musculoskeletal: Yes Gait Disturbance Neurological: Yes Gait Disturbance Physical Exam Physical Exam Physical Exam: PE: Constitutional: Well developed, cachectic in mild distress HENT: Normocephalic, atraumatic, bilateral external ears normal, oropharynx dry t, no oral exudates, nose normal. [] Eyes: PERRLA, EOMI, conjunctiva normal, no discharge. [] Neck: Normal range of motion, no tenderness, supple, no stridor. [] Cardiovascular:Heart rate regular rhythm, 4 out of 6 systolic murmur noted Lungs & Thorax: Bilateral breath sounds clear to auscultation [] Abdomen: Bowel sounds normal, soft, no tenderness, no masses, no pulsatile masses. [] Skin: Warm, dry, no erythema, no rash. [] Back: No tenderness, no CVA tenderness. [] Extremities: No tenderness, no cyanosis, no clubbing, ROM intact, no edema. [] Neurologic: Alert and oriented X 3, normal motor function, normal sensory function, no focal deficits noted. [] Psychologic: Affect sad, judgment poor, mood flat [] General: Alert, Cooperative, No acute distress HEENT: EOMI Lungs: Clear to auscultation Heart: RRR Breasts: Not examined Abdomen: Soft Rectal Exam: not examined PELVIC: Examination not indicated Extremities: No cyanosis Neuro: Cranial nerves 3-12 NL Vitals Vitals Vital Signs Date Time Temp Pulse Resp B/P (MAP) Pulse Ox O2 Delivery O2 Flow Rate FiO2 02/24/20 08:00 Room Air 02/24/20 07:59 98.3 78 18 114/78 (90) 90 98.3 Labs Labs Laboratory Tests Test 02/23/20 22:47 02/23/20 23:05 02/24/20 07:25 White Blood Count 2.6 x10^3/uL (4.0-11.0) 2.7 x10^3/uL (4.0-11.0) Red Blood Count 3.47 x10^6/uL (3.50-5.40) 3.36 x10^6/uL (3.50-5.40) Hemoglobin 9.4 g/dL (12.0-15.5) 9.0 g/dL (12.0-15.5) Hematocrit 28.0 % (36.0-47.0) 27.2 % (36.0-47.0) Mean Corpuscular Volume 81 fL (79-100) 81 fL (79-100) Mean Corpuscular Hemoglobin 27 pg (25-35) 27 pg (25-35) Mean Corpuscular Hemoglobin Concent 34 g/dL (31-37) 33 g/dL (31-37) Red Cell Distribution Width 15.3 % (11.5-14.5) 15.1 % (11.5-14.5) Platelet Count 181 x10^3/uL (140-400) 175 x10^3/uL (140-400) Neutrophils (%) (Auto) 40 % (31-73) 51 % (31-73) Lymphocytes (%) (Auto) 48 % (24-48) 34 % (24-48) Monocytes (%) (Auto) 9 % (0-9) 12 % (0-9) Eosinophils (%) (Auto) 1 % (0-3) 1 % (0-3) Basophils (%) (Auto) 2 % (0-3) 2 % (0-3) Neutrophils # (Auto) 1.0 x10^3/uL (1.8-7.7) 1.4 x10^3/uL (1.8-7.7) Lymphocytes # (Auto) 1.3 x10^3/uL (1.0-4.8) 0.9 x10^3/uL (1.0-4.8) Monocytes # (Auto) 0.2 x10^3/uL (0.0-1.1) 0.3 x10^3/uL (0.0-1.1) Eosinophils # (Auto) 0.0 x10^3/uL (0.0-0.7) 0.0 x10^3/uL (0.0-0.7) Basophils # (Auto) 0.0 x10^3/uL (0.0-0.2) 0.0 x10^3/uL (0.0-0.2) Sodium Level 138 mmol/L (136-145) Potassium Level 4.4 mmol/L (3.5-5.1) Chloride Level 105 mmol/L (98-107) Carbon Dioxide Level 23 mmol/L (21-32) Anion Gap 10 (6-14) Blood Urea Nitrogen 23 mg/dL (7-20) Creatinine 1.3 mg/dL (0.6-1.0) Estimated GFR (Cockcroft-Gault) 49.6 BUN/Creatinine Ratio 18 (6-20) Glucose Level 88 mg/dL (70-99) Lactic Acid Level 1.7 mmol/L (0.4-2.0) Calcium Level 8.2 mg/dL (8.5-10.1) Magnesium Level 1.6 mg/dL (1.8-2.4) Total Bilirubin 0.4 mg/dL (0.2-1.0) Aspartate Amino Transf (AST/SGOT) 102 U/L (15-37) Alanine Aminotransferase (ALT/SGPT) 97 U/L (14-59) Alkaline Phosphatase 258 U/L (46-116) Troponin I Quantitative < 0.017 ng/mL (0.000-0.055) Total Protein 5.7 g/dL (6.4-8.2) Albumin 2.4 g/dL (3.4-5.0) Albumin/Globulin Ratio 0.7 (1.0-1.7) Urine Collection Type Void Urine Color Yellow Urine Clarity Clear Urine pH 5.5 (<5.0-8.0) Urine Specific Sidney 1.015 (1.000-1.030) Urine Protein Negative mg/dL (NEG-TRACE) Urine Glucose (UA) Negative mg/dL (NEG) Urine Ketones (Stick) Negative mg/dL (NEG) Urine Blood Negative (NEG) Urine Nitrite Negative (NEG) Urine Bilirubin Negative (NEG) Urine Urobilinogen Dipstick 0.2 mg/dL (0.2 mg/dL) Urine Leukocyte Esterase Negative (NEG) Urine RBC 1-2 /HPF (0-2) Urine WBC 5-10 /HPF (0-4) Urine Squamous Epithelial Cells Few /LPF Urine Bacteria Moderate /HPF (0-FEW) Laboratory Tests Test 02/23/20 22:47 02/23/20 23:05 02/24/20 07:25 White Blood Count 2.6 x10^3/uL (4.0-11.0) 2.7 x10^3/uL (4.0-11.0) Red Blood Count 3.47 x10^6/uL (3.50-5.40) 3.36 x10^6/uL (3.50-5.40) Hemoglobin 9.4 g/dL (12.0-15.5) 9.0 g/dL (12.0-15.5) Hematocrit 28.0 % (36.0-47.0) 27.2 % (36.0-47.0) Mean Corpuscular Volume 81 fL (79-100) 81 fL (79-100) Mean Corpuscular Hemoglobin 27 pg (25-35) 27 pg (25-35) Mean Corpuscular Hemoglobin Concent 34 g/dL (31-37) 33 g/dL (31-37) Red Cell Distribution Width 15.3 % (11.5-14.5) 15.1 % (11.5-14.5) Platelet Count 181 x10^3/uL (140-400) 175 x10^3/uL (140-400) Neutrophils (%) (Auto) 40 % (31-73) 51 % (31-73) Lymphocytes (%) (Auto) 48 % (24-48) 34 % (24-48) Monocytes (%) (Auto) 9 % (0-9) 12 % (0-9) Eosinophils (%) (Auto) 1 % (0-3) 1 % (0-3) Basophils (%) (Auto) 2 % (0-3) 2 % (0-3) Neutrophils # (Auto) 1.0 x10^3/uL (1.8-7.7) 1.4 x10^3/uL (1.8-7.7) Lymphocytes # (Auto) 1.3 x10^3/uL (1.0-4.8) 0.9 x10^3/uL (1.0-4.8) Monocytes # (Auto) 0.2 x10^3/uL (0.0-1.1) 0.3 x10^3/uL (0.0-1.1) Eosinophils # (Auto) 0.0 x10^3/uL (0.0-0.7) 0.0 x10^3/uL (0.0-0.7) Basophils # (Auto) 0.0 x10^3/uL (0.0-0.2) 0.0 x10^3/uL (0.0-0.2) Sodium Level 138 mmol/L (136-145) Potassium Level 4.4 mmol/L (3.5-5.1) Chloride Level 105 mmol/L (98-107) Carbon Dioxide Level 23 mmol/L (21-32) Anion Gap 10 (6-14) Blood Urea Nitrogen 23 mg/dL (7-20) Creatinine 1.3 mg/dL (0.6-1.0) Estimated GFR (Cockcroft-Gault) 49.6 BUN/Creatinine Ratio 18 (6-20) Glucose Level 88 mg/dL (70-99) Lactic Acid Level 1.7 mmol/L (0.4-2.0) Calcium Level 8.2 mg/dL (8.5-10.1) Magnesium Level 1.6 mg/dL (1.8-2.4) Total Bilirubin 0.4 mg/dL (0.2-1.0) Aspartate Amino Transf (AST/SGOT) 102 U/L (15-37) Alanine Aminotransferase (ALT/SGPT) 97 U/L (14-59) Alkaline Phosphatase 258 U/L (46-116) Troponin I Quantitative < 0.017 ng/mL (0.000-0.055) Total Protein 5.7 g/dL (6.4-8.2) Albumin 2.4 g/dL (3.4-5.0) Albumin/Globulin Ratio 0.7 (1.0-1.7) Urine Collection Type Void Urine Color Yellow Urine Clarity Clear Urine pH 5.5 (<5.0-8.0) Urine Specific Sidney 1.015 (1.000-1.030) Urine Protein Negative mg/dL (NEG-TRACE) Urine Glucose (UA) Negative mg/dL (NEG) Urine Ketones (Stick) Negative mg/dL (NEG) Urine Blood Negative (NEG) Urine Nitrite Negative (NEG) Urine Bilirubin Negative (NEG) Urine Urobilinogen Dipstick 0.2 mg/dL (0.2 mg/dL) Urine Leukocyte Esterase Negative (NEG) Urine RBC 1-2 /HPF (0-2) Urine WBC 5-10 /HPF (0-4) Urine Squamous Epithelial Cells Few /LPF Urine Bacteria Moderate /HPF (0-FEW) VTE Prophylaxis Ordered VTE Prophylaxis Devices: No VTE Pharmacological Prophylaxi: Yes Assessment/Plan Assessment/Plan IMPRESSION Metabolic encephalopathy - with underlying h/o brain aneurysm and bipolar depression with psychosis - geodon and prn lorazepam - previously was metabolic and toxic, appears to be psychosis H/o Seizures, provoked by cocaine with h/o aneurysm - keppra and thiamine, neuro f/u in 4-6 weeks JOSE G - cont IVF Cocaine use/abuse hx Hx of brain aneurysm - ?s/p clipping at [facility] DM oral meds and insulin HTN - needs better control HLD - LDL is 199, needs 80mg atorvastatin or 40mg rosuvastatin self neglect on chemo for colon cancer. She last had chemo 02/21 and she has been weaker ever since. PLAN ADMIT FEN - ADA diet PPX - lovenox FULL CODE Inpatient for acute encephalopathy that is recurrent, likely related to primary psychiatric disorder./ cocaine abuse Needs to work with PT/OT - Needs geriatric psych with her h/o seizures and sundowning in the future Sister is her nearest next of kin - d/w her need for skilled svcs on d/c consult oncology 78 MIN PT EXAM, CHART REVIEW, > 50% OF TIME SPENT WITH EXAM, CHART REVIEW, pt care coordination Justicifation of Admission Dx: Justifications for Admission: Justification of Admission Dx: Yes REGINA TRAVIS MD Feb 24, 2020 10:41
[2020-02-24 11:59] VITALS: BP 123/83
[2020-02-24] MEDS ORDERED: ALBUTEROL SULFATE 2.5 MG/3 ML NEBU. CONT NEB PRN (13:30)
[2020-02-24] MEDS ORDERED: LORazepam 0.5 MG TABLET PO PRN (13:30)
[2020-02-24] MEDS: hydrALAZINE 25 MG TABLET PO SCH ×2 (14:45→22:18)
[2020-02-24] MEDS: CYANOCOBALAMIN (VITAMIN B-12) 1,000 MCG TABLET. PO SCH (14:46)
[2020-02-24] MEDS: CHOLECALCIFEROL (VITAMIN D3) 1,000 UNIT TABLET PO SCH (14:46)
[2020-02-24] MEDS: amLODIPine BESYLATE 10 MG TABLET PO SCH (14:47)
[2020-02-24] MEDS: TRIAMTERENE/HCTZ 37.5/25MG TABLET. PO SCH (14:47)
[2020-02-24] MEDS: MULTIVITAMIN with MINERAL TABLET. PO SCH (14:47)
[2020-02-24] MEDS: FERROUS SULFATE 325 MG TABLET. PO SCH (14:47)
[2020-02-24] MEDS: THIAMINE 100 MG TABLET. PO SCH (14:47)
[2020-02-24] MEDS: FAMOTIDINE 20 MG TABLET. PO SCH (14:47)
[2020-02-24 15:59] VITALS: BP 113/73
[2020-02-24] MEDS: PANTOPRAZOLE 40 MG TABLET.DR. PO SCH (16:30)
[2020-02-24 19:00] VITALS: BP 121/76
[2020-02-24] MEDS ORDERED: LEVETIRACETAM PO SCH (21:00)
[2020-02-24] MEDS: ZIPRASIDONE 20 MG CAPSULE PO SCH (22:17)
[2020-02-24] MEDS: levETIRAcetam 500 MG TABLET PO SCH (22:17)
[2020-02-24 23:00] VITALS: BP 114/72
[2020-02-25 01:20] LABS: BARBITURATES NEG (NEG); BENZODIAZEPINES NEG (NEG); CANNABINOIDS NEG (NEG); COCAINE NEG (NEG); METHADONE NEG (NEG); OPIATES NEG (NEG); PHENCYCLIDINE NEG (NEG)
[2020-02-25 01:38] LABS: AMPHETAMINE/METHAMPHETAMINE NEG (NEG)
[2020-02-25 03:00] VITALS: BP 125/70
[2020-02-25 07:00] VITALS: BP 119/77
--- NOTE | 2020-02-25 07:57 | PDOC ---
PROGRESS NOTES History of Present Illness History of Present Illness Assessment/Plan Assessment/Plan IMPRESSION Metabolic encephalopathy - with underlying h/o brain aneurysm and bipolar depression with psychosis - geodon and prn lorazepam - previously was metabolic and toxic, appears to be psychosis H/o Seizures, provoked by cocaine with h/o aneurysm - keppra and thiamine, neuro f/u in 4-6 weeks JOSE G - cont IVF Cocaine use/abuse hx Hx of brain aneurysm - ?s/p clipping at [facility] DM oral meds and insulin HTN - needs better control HLD - LDL is 199, needs 80mg atorvastatin or 40mg rosuvastatin self neglect on chemo for colon cancer. She last had chemo 02/21 and she has been weaker ever since. Metastatic colon cancer on palliative chemotherapy Generalized weakness Hypertension Dyslipidemia PLAN ADMIT FEN - ADA diet PPX - lovenox FULL CODE Inpatient for acute encephalopathy that is recurrent, likely related to primary psychiatric disorder./ cocaine abuse Needs to work with PT/OT - Needs geriatric psych with her h/o seizures and sundowning in the future Sister is her nearest next of kin - d/w her need for skilled svcs on d/c consult oncology 38 MIN PT EXAM, CHART REVIEW, > 50% OF TIME SPENT WITH EXAM, CHART REVIEW, pt care coordination Justicifation of Admission Dx: Justicifation of Admission Dx: Justifications for Admission: Justification of Admission Dx: Yes Vitals Vitals Vital Signs Date Time Temp Pulse Resp B/P (MAP) Pulse Ox O2 Delivery O2 Flow Rate FiO2 02/25/20 03:00 98.6 67 18 125/70 (88) 96 98.6 02/24/20 20:00 Room Air Physical Exam General: Alert, Cooperative, No acute distress Lungs: Clear Abdomen: Soft Extremities: No cyanosis Labs LABS Procedure Result -- URINE CULTURE Final Final Three or more organisms isolated. Results consistent with colonization or contamination during the collection process. Recollection recommended using a method to minimize contamination. An ID and Sensitivity will be performed when one organism is predominant and a likely pathogen on 02/25/20 at 0947 Testing Performed by: [address] [address] For Inquires, the Physician may contact the Microbiology department at [phone] Unless otherwise specified, Testing Performed by: [address] [address] For Inquires, the Physician may contact the Microbiology department at [phone] Laboratory Tests Test 02/24/20 23:10 Urine Opiates Screen Neg (NEG) Urine Methadone Screen Neg (NEG) Urine Barbiturates Neg (NEG) Urine Phencyclidine Screen Neg (NEG) Urine Amphetamine/Methamphetamine Neg (NEG) Urine Benzodiazepines Screen Neg (NEG) Urine Cocaine Screen Neg (NEG) Urine Cannabinoids Screen Neg (NEG) Urine Ethyl Alcohol Neg (NEG) Assessment and Plan Assessmemt and Plan Problems Medical Problems: (1) UTI (urinary tract infection) Status: Acute Comment Review of Relevant I have reviewed the following items remi (where applicable) has been applied. Labs Laboratory Tests Test 02/23/20 22:47 02/23/20 23:05 02/24/20 07:25 02/24/20 23:10 White Blood Count 2.6 x10^3/uL (4.0-11.0) 2.7 x10^3/uL (4.0-11.0) Red Blood Count 3.47 x10^6/uL (3.50-5.40) 3.36 x10^6/uL (3.50-5.40) Hemoglobin 9.4 g/dL (12.0-15.5) 9.0 g/dL (12.0-15.5) Hematocrit 28.0 % (36.0-47.0) 27.2 % (36.0-47.0) Mean Corpuscular Volume 81 fL (79-100) 81 fL (79-100) Mean Corpuscular Hemoglobin 27 pg (25-35) 27 pg (25-35) Mean Corpuscular Hemoglobin Concent 34 g/dL (31-37) 33 g/dL (31-37) Red Cell Distribution Width 15.3 % (11.5-14.5) 15.1 % (11.5-14.5) Platelet Count 181 x10^3/uL (140-400) 175 x10^3/uL (140-400) Neutrophils (%) (Auto) 40 % (31-73) 51 % (31-73) Lymphocytes (%) (Auto) 48 % (24-48) 34 % (24-48) Monocytes (%) (Auto) 9 % (0-9) 12 % (0-9) Eosinophils (%) (Auto) 1 % (0-3) 1 % (0-3) Basophils (%) (Auto) 2 % (0-3) 2 % (0-3) Neutrophils # (Auto) 1.0 x10^3/uL (1.8-7.7) 1.4 x10^3/uL (1.8-7.7) Lymphocytes # (Auto) 1.3 x10^3/uL (1.0-4.8) 0.9 x10^3/uL (1.0-4.8) Monocytes # (Auto) 0.2 x10^3/uL (0.0-1.1) 0.3 x10^3/uL (0.0-1.1) Eosinophils # (Auto) 0.0 x10^3/uL (0.0-0.7) 0.0 x10^3/uL (0.0-0.7) Basophils # (Auto) 0.0 x10^3/uL (0.0-0.2) 0.0 x10^3/uL (0.0-0.2) Sodium Level 138 mmol/L (136-145) Potassium Level 4.4 mmol/L (3.5-5.1) Chloride Level 105 mmol/L (98-107) Carbon Dioxide Level 23 mmol/L (21-32) Anion Gap 10 (6-14) Blood Urea Nitrogen 23 mg/dL (7-20) Creatinine 1.3 mg/dL (0.6-1.0) Estimated GFR (Cockcroft-Gault) 49.6 BUN/Creatinine Ratio 18 (6-20) Glucose Level 88 mg/dL (70-99) Lactic Acid Level 1.7 mmol/L (0.4-2.0) Calcium Level 8.2 mg/dL (8.5-10.1) Magnesium Level 1.6 mg/dL (1.8-2.4) Total Bilirubin 0.4 mg/dL (0.2-1.0) Aspartate Amino Transf (AST/SGOT) 102 U/L (15-37) Alanine Aminotransferase (ALT/SGPT) 97 U/L (14-59) Alkaline Phosphatase 258 U/L (46-116) Troponin I Quantitative < 0.017 ng/mL (0.000-0.055) Total Protein 5.7 g/dL (6.4-8.2) Albumin 2.4 g/dL (3.4-5.0) Albumin/Globulin Ratio 0.7 (1.0-1.7) Urine Collection Type Void Urine Color Yellow Urine Clarity Clear Urine pH 5.5 (<5.0-8.0) Urine Specific [place] 1.015 (1.000-1.030) Urine Protein Negative mg/dL (NEG-TRACE) Urine Glucose (UA) Negative mg/dL (NEG) Urine Ketones (Stick) Negative mg/dL (NEG) Urine Blood Negative (NEG) Urine Nitrite Negative (NEG) Urine Bilirubin Negative (NEG) Urine Urobilinogen Dipstick 0.2 mg/dL (0.2 mg/dL) Urine Leukocyte Esterase Negative (NEG) Urine RBC 1-2 /HPF (0-2) Urine WBC 5-10 /HPF (0-4) Urine Squamous Epithelial Cells Few /LPF Urine Bacteria Moderate /HPF (0-FEW) Urine Opiates Screen Neg (NEG) Urine Methadone Screen Neg (NEG) Urine Barbiturates Neg (NEG) Urine Phencyclidine Screen Neg (NEG) Urine Amphetamine/Methamphetamine Neg (NEG) Urine Benzodiazepines Screen Neg (NEG) Urine Cocaine Screen Neg (NEG) Urine Cannabinoids Screen Neg (NEG) Urine Ethyl Alcohol Neg (NEG) Laboratory Tests Test 02/24/20 23:10 Urine Opiates Screen Neg (NEG) Urine Methadone Screen Neg (NEG) Urine Barbiturates Neg (NEG) Urine Phencyclidine Screen Neg (NEG) Urine Amphetamine/Methamphetamine Neg (NEG) Urine Benzodiazepines Screen Neg (NEG) Urine Cocaine Screen Neg (NEG) Urine Cannabinoids Screen Neg (NEG) Urine Ethyl Alcohol Neg (NEG) Microbiology 02/24/20 Blood Culture - Preliminary, Resulted NO GROWTH AFTER 1 DAY Medications Current Medications Sodium Chloride 1,000 ml @ 1,000 mls/hr 1X ONCE IV Last administered on 02/23/20at 21:30; Start 02/23/20 at 23:00; Stop 02/23/20 at 23:59; Status DC Levofloxacin/ Dextrose (Levaquin Per Pharmacy) 1 each PRN DAILY PRN MC SEE COMMENTS; Start 02/24/20 at 00:00 Zolpidem Tartrate (Ambien) 5 mg 1X ONCE PO Last administered on 02/24/20at 01:55; Start 02/24/20 at 00:30; Stop 02/24/20 at 00:31; Status DC Sodium Chloride 1,000 ml @ 75 mls/hr [id number] IV Last administered on 02/24/20at 01:57; Start 02/24/20 at 00:30; Stop 02/24/20 at 00:31; Status DC Levofloxacin/ Dextrose 100 ml @ 100 mls/hr 1X ONCE IV Last administered on at 00:45; Start 02/24/20 at 00:30; Stop 02/24/20 at 01:29; Status DC Levofloxacin/ Dextrose 50 ml @ 50 mls/hr Q24H IV Last administered on 02/24/20at 22:19; Start 02/24/20 at 23:00 Albuterol Sulfate (Ventolin Neb Soln) 2.5 mg PRN Q4HRS PRN CONT NEB WHEEZING; Start 02/24/20 at 13:30 Amlodipine Besylate (Norvasc) 10 mg DAILY PO Last administered on 02/24/20at 14:47; Start 02/24/20 at 14:00 Ferrous Sulfate (Feosol) 325 mg DAILY08 PO Last administered on 02/24/20at 14:47; Start 02/24/20 at 14:00 Hydralazine HCl (Apresoline) 25 mg TID PO Last administered on 02/24/20 22:18; Start 02/24/20 at 14:00 Lorazepam (Ativan) 0.5 mg PRN Q6HRS PRN PO ANXIETY / AGITATION; Start 02/24/20 at 13:30 Pantoprazole Sodium (Protonix) 40 mg DAILYAC PO ; Start 02/24/20 at 16:30 Thiamine Mononitrate (Vitamin B-1) 100 mg DAILY PO Last administered on 02/24/20 14:47; Start 02/24/20 at 14:00 Triamterene/HCTZ (Maxzide 37.5/ 25mg) 1 tab DAILY PO Last administered on 02/24/20 14:47; Start 02/24/20 at 14:00 Ziprasidone (Geodon) 20 mg BID PO Last administered on 02/24/20 22:17; Start 02/24/20 at 21:00 Cyanocobalamin (Vitamin B-12) 2,500 mcg DAILY PO Last administered on 02/24/20at 14:46; Start 02/24/20 at 14:00 Non-Formulary Medication (Levetiracetam ) 1 tab BID PO ; Start 02/24/20 at 21:00; Status UNV Multivitamins (Thera M Plus) 1 tab DAILY PO Last administered on 02/24/20 14:47; Start 02/24/20 at 14:00 Famotidine (Pepcid) 20 mg DAILY PO Last administered on 02/24/20 14:47; Start 02/24/20 at 14:00 Vitamin D (Vitamin D3) 1,000 unit DAILY PO Last administered on 02/24/20 14:46; Start 02/24/20 at 14:00 Levetiracetam (Keppra) 500 mg BID PO Last administered on 02/24/20 22:17; Start 02/24/20 at 21:00 Active Scripts Active Geodon (Ziprasidone Hcl) 20 Mg Capsule 1 Cap PO BID Triamterene-Hctz 37.5-25 Mg Tb (Triamterene/Hydrochlorothiazid) 1 Each Tablet 1 Tab PO DAILY 30 Days Hydralazine Hcl 25 Mg Tablet 25 Mg PO PRN TID PRN 30 Days For SBP > 150mmHg take as needed 3 times per day Amlodipine Besylate 10 Mg Tablet 10 Mg PO DAILY 30 Days Vitamin B-1 (Thiamine Mononitrate) 100 Mg Tablet 100 Mg PO DAILY 30 Days Reported Compazine (Prochlorperazine Maleate) 10 Mg Tablet 1 Tab PO Q6HRS 7 Days Protonix (Pantoprazole Sodium) 40 Mg Tablet.dr 40 Mg PO DAILYAC Gummi Bear Multivitamin (Multivitamin) 1 Each Tab.chew 1 Each PO DAILY Ferrous Sulfate 325 Mg Tablet 1 Tab PO DAILY Levetiracetam 500 Mg Tab.er.24h 1 Tab PO BID 30 Days Hydralazine Hcl 25 Mg Tablet 1 Tab PO TID [Vitamin D3] 25 Mcg PO DAILY Vitamin B12 (Cyanocobalamin (Vitamin B-12)) 2,500 Mcg Tablet 1 Tab PO DAILY 30 Days Ranitidine Hcl 150 Mg Capsule 1 Cap PO BID Ativan (Lorazepam) 0.5 Mg Tablet 0.5 Mg PO PRN PRN Proair Hfa Inhaler (Albuterol Sulfate) 8.5 Gm Hfa.aer.ad 2 Puff IH PRN Q4-6HRS Vitals/I & O Vital Sign - Last 24 Hours 02/24/20 02/24/20 02/24/20 02/24/20 07:59 08:00 11:59 14:45 Temp 98.3 98.5 98.3 98.5 Pulse 78 76 76 Resp 18 18 B/P (MAP) 114/78 (90) 123/83 (96) 123/83 Pulse Ox 90 95 O2 Delivery Room Air Room Air Room Air 02/24/20 02/24/20 02/24/20 02/24/20 14:47 15:27 15:59 19:00 Temp 98.7 99.0 98.7 99.0 Pulse 76 73 71 Resp 18 18 B/P (MAP) 123/83 113/73 (86) 121/76 (91) Pulse Ox 95 96 91 O2 Delivery Room Air Room Air 02/24/20 02/24/20 02/24/20 02/25/20 20:00 22:18 23:00 03:00 Temp 98.3 98.6 98.3 98.6 Pulse 72 71 67 Resp 16 18 B/P (MAP) 130/70 114/72 (86) 125/70 (88) Pulse Ox 91 96 O2 Delivery Room Air Intake and Output 02/24/20 02/24/20 02/25/20 15:00 23:00 07:00 Intake Total 100 ml 650 ml Balance 100 ml 650 ml Justicifation of Admission Dx: Justifications for Admission: Justification of Admission Dx: Yes REGINA TRAVIS MD Feb 25, 2020 07:57
[2020-02-25] MEDS: THIAMINE 100 MG TABLET. PO SCH (08:36)
[2020-02-25] MEDS: FAMOTIDINE 20 MG TABLET. PO SCH (08:36)
[2020-02-25] MEDS: levETIRAcetam 500 MG TABLET PO SCH ×2 (08:36→20:30)
[2020-02-25] MEDS: FERROUS SULFATE 325 MG TABLET. PO SCH (08:37)
[2020-02-25] MEDS: CHOLECALCIFEROL (VITAMIN D3) 1,000 UNIT TABLET PO SCH (08:37)
[2020-02-25] MEDS: amLODIPine BESYLATE 10 MG TABLET PO SCH (08:37)
[2020-02-25] MEDS: PANTOPRAZOLE 40 MG TABLET.DR. PO SCH (08:37)
[2020-02-25] MEDS: MULTIVITAMIN with MINERAL TABLET. PO SCH (08:37)
[2020-02-25] MEDS: ZIPRASIDONE 20 MG CAPSULE PO SCH ×2 (08:37→20:30)
[2020-02-25] MEDS: TRIAMTERENE/HCTZ 37.5/25MG TABLET. PO SCH (08:38)
[2020-02-25] MEDS: hydrALAZINE 25 MG TABLET PO SCH ×3 (08:38→20:29)
[2020-02-25] MEDS: CYANOCOBALAMIN (VITAMIN B-12) 1,000 MCG TABLET. PO SCH (08:42)
[2020-02-25] MEDS ORDERED: ACETAMINOPHEN 325 MG TABLET. PO PRN (09:15)
[2020-02-25] MEDS ORDERED: 0.9 % SODIUM CHLORIDE 10 ML DISP.SYRIN. IV PRN (09:15)
[2020-02-25] MEDS ORDERED: SODIUM PHOSPHATES 19/7GM 133 ML ENEMA. PR PRN (09:15)
[2020-02-25] MEDS ORDERED: ALBUTEROL SULFATE 2.5 MG/3 ML NEBU. NEB PRN (09:15)
[2020-02-25] MEDS ORDERED: guaiFENesin ORAL 200 MG/10 ML LIQUID. PO PRN (09:15)
[2020-02-25] MEDS ORDERED: ONDANSETRON PF 4 MG/2 ML VIAL. IV PRN (09:15)
[2020-02-25] MEDS ORDERED: DOCUSATE SODIUM 100 MG CAPSULE. PO PRN (09:15)
[2020-02-25] MEDS: ENOXAPARIN 40 MG/0.4 ML SYRINGE. SQ SCH (10:06)
[2020-02-25 11:00] VITALS: BP 122/78
[2020-02-25 12:13] LABS: BASO # 0.1 x10^3/uL (0.0-0.2); BASO % 1 % (0-3); EOS % 1 % (0-3); HEMATOCRIT 32.6 % (36.0-47.0); HEMOGLOBIN 10.8 g/dL (12.0-15.5); LYMPH # 1.2 x10^3/uL (1.0-4.8); LYMPH % 24 % (24-48); MEAN CORPUSCULAR HEMOGLOBIN 27 pg (25-35); MEAN CORPUSCULAR HGB CONC 33 g/dL (31-37); MEAN CORPUSCULAR VOLUME 80 fL (79-100); MONO # 0.5 x10^3/uL (0.0-1.1); MONO % 11 % (0-9); NEUT # 3.2 x10^3/uL (1.8-7.7); NEUT % 63 % (31-73); PLATELET COUNT 173 x10^3/uL (140-400); RED BLOOD COUNT 4.06 x10^6/uL (3.50-5.40); RED CELL DISTRIBUTION WIDTH 14.8 % (11.5-14.5)
--- NOTE | 2020-02-25 12:22 | PDOC2 ---
CONSULT Date of Consult Date of Consult DATE: 02/25/20 TIME: 12:14 Reason for Consult Reason for Consult: Metastatic colon cancer on chemotherapy. Currently admitted with fatigue Referring Physician Referring Physician: Dr. Horta Identification/Chief Complaint Chief Complaint Fatigue and dizziness Problems: (1) Metastatic colon cancer to liver Source Source: Chart review, Patient History of Present Illness Reason for Visit: Taina Cheek is a 64-year-old female with metastatic colon cancer who has been admitted to the hospital for further evaluation of fatigue dizziness and weakness. Patient reports that she had recently received chemotherapy for metastatic colon cancer. She reports that she smoked a cigarette on Tuesday and subsequently noticed dizziness and weakness. Her sister then called the ambulance and she was brought to the emergency room for further evaluation and then admitted to the hospital. She notes that her symptoms have completely resolved since then. She continues to feel generalized weakness but this has been stable for the past few weeks. She denies fever, chills, chest pain, nausea, vomiting, diarrhea, bloody stools or black stools. She denies tingling or numbness in her fingers or her toes. Hematology oncology has been consulted to assist with management given her metastatic colon cancer Past Medical History Cardiovascular: HTN Pulmonary: Asthma CENTRAL NERVOUS SYSTEM: Seizure, Other GI: GERD Endocrine: Diabetes Past Surgical History Past Surgical History: Other Family History Family History: Alcohol Abuse, No Significant Social History <1 pack per day ALCOHOL: heavy Drugs: None, Cocaine Current Problem List Problem List Problems Medical Problems: (1) UTI (urinary tract infection) Status: Acute Current Medications Current Medications Current Medications Sodium Chloride 1,000 ml @ 1,000 mls/hr 1X ONCE IV Last administered on 02/23/20at 21:30; Start 02/23/20 at 23:00; Stop 02/23/20 at 23:59; Status DC Levofloxacin/ Dextrose (Levaquin Per Pharmacy) 1 each PRN DAILY PRN MC SEE COMMENTS; Start 02/24/20 at 00:00 Zolpidem Tartrate (Ambien) 5 mg 1X ONCE PO Last administered on 02/24/20at 01:55; Start 02/24/20 at 00:30; Stop 02/24/20 at 00:31; Status DC Sodium Chloride 1,000 ml @ 75 mls/hr [id number] IV Last administered on 02/24/20at 01:57; Start 02/24/20 at 00:30; Stop 02/24/20 at 00:31; Status DC Levofloxacin/ Dextrose 100 ml @ 100 mls/hr 1X ONCE IV Last administered on 02/24/20at 00:45; Start 02/24/20 at 00:30; Stop 02/24/20 at 01:29; Status DC Levofloxacin/ Dextrose 50 ml @ 50 mls/hr Q24H IV Last administered on 02/24/20at 22:19; Start 02/24/20 at 23:00 Albuterol Sulfate (Ventolin Neb Soln) 2.5 mg PRN Q4HRS PRN CONT NEB WHEEZING; Start 02/24/20 at 13:30 Amlodipine Besylate (Norvasc) 10 mg DAILY PO Last administered on 02/25/20at 08:37; Start 02/24/20 at 14:00 Ferrous Sulfate (Feosol) 325 mg DAILY08 PO Last administered on 02/25/20at 08:37; Start 02/24/20 at 14:00 Hydralazine HCl (Apresoline) 25 mg TID PO Last administered on 02/25/20 08:38; Start 02/24/20 at 14:00 Lorazepam (Ativan) 0.5 mg PRN Q6HRS PRN PO ANXIETY / AGITATION; Start 02/24/20 at 13:30 Pantoprazole Sodium (Protonix) 40 mg DAILYAC PO Last administered on 02/25/20at 08:37; Start 02/24/20 at 16:30 Thiamine Mononitrate (Vitamin B-1) 100 mg DAILY PO Last administered on 02/25/20at 08:36; Start 02/24/20 at 14:00 Triamterene/HCTZ (Maxzide 37.5/ 25mg) 1 tab DAILY PO Last administered on 02/25/20 08:38; Start 02/24/20 at 14:00 Ziprasidone (Geodon) 20 mg BID PO Last administered on 02/25/20 08:37; Start 02/24/20 at 21:00 Cyanocobalamin (Vitamin B-12) 2,500 mcg DAILY PO Last administered on 02/25/20at 08:42; Start 02/24/20 at 14:00 Non-Formulary Medication (Levetiracetam ) 1 tab BID PO ; Start 02/24/20 at 21:00; Status UNV Multivitamins (Thera M Plus) 1 tab DAILY PO Last administered on 02/25/20at 08:37; Start 02/24/20 at 14:00 Famotidine (Pepcid) 20 mg DAILY PO Last administered on 02/25/20 08:36; Start 02/24/20 at 14:00 Vitamin D (Vitamin D3) 1,000 unit DAILY PO Last administered on 02/25/20at 08:37; Start 02/24/20 at 14:00 Levetiracetam (Keppra) 500 mg BID PO Last administered on 02/25/20 08:36; Start 02/24/20 at 21:00 Sodium Chloride (Normal Saline Flush) 3 ml QSHIFT PRN IV AFTER MEDS AND BLOOD DRAWS; Start 02/25/20 at 09:15 Ondansetron HCl (Zofran) 4 mg PRN Q4HRS PRN IV NAUSEA/VOMITING; Start 02/25/20 at 09:15 Acetaminophen (Tylenol) 650 mg PRN Q4HRS PRN PO TEMP OVER 100.4F OR MILD PAIN; Start 02/25/20 at 09:15 Sodium Monofluorophosphate (Fleet Adult) 133 ml PRN DAILY PRN VT CONSTIPATION; Start 02/25/20 at 09:15 Docusate Sodium (Colace) 100 mg PRN BID PRN PO HARD STOOLS; Start 02/25/20 at 09:15 Albuterol Sulfate (Ventolin Neb Soln) 2.5 mg PRN Q4HRS PRN NEB SHORTNESS OF BREATH; Start 02/25/20 at 09:15 Guaifenesin (Robitussin) 200 mg PRN Q4HRS PRN PO COUGH; Start 02/25/20 at 09:15 Lorazepam (Ativan) 0.5 mg PRN Q4HRS PRN PO ANXIETY / AGITATION; Start 02/25/20 at 09:15 Lorazepam (Ativan Inj) 2 mg PRN Q4HRS PRN IV ANXIETY / AGITATION; Start 02/25/20 at 09:15 Enoxaparin Sodium (Lovenox 40mg Syringe) 40 mg Q24H SQ Last administered on 02/25/20at 10:06; Start 7/20/20 at 10:00 Active Scripts Active Geodon (Ziprasidone Hcl) 20 Mg Capsule 1 Cap PO BID Triamterene-Hctz 37.5-25 Mg Tb (Triamterene/Hydrochlorothiazid) 1 Each Tablet 1 Tab PO DAILY 30 Days Hydralazine Hcl 25 Mg Tablet 25 Mg PO PRN TID PRN 30 Days For SBP > 150mmHg take as needed 3 times per day Amlodipine Besylate 10 Mg Tablet 10 Mg PO DAILY 30 Days Vitamin B-1 (Thiamine Mononitrate) 100 Mg Tablet 100 Mg PO DAILY 30 Days Reported Compazine (Prochlorperazine Maleate) 10 Mg Tablet 1 Tab PO Q6HRS 7 Days Protonix (Pantoprazole Sodium) 40 Mg Tablet.dr 40 Mg PO DAILYAC Gummi Bear Multivitamin (Multivitamin) 1 Each Tab.chew 1 Each PO DAILY Ferrous Sulfate 325 Mg Tablet 1 Tab PO DAILY Levetiracetam 500 Mg Tab.er.24h 1 Tab PO BID 30 Days Hydralazine Hcl 25 Mg Tablet 1 Tab PO TID [Vitamin D3] 25 Mcg PO DAILY Vitamin B12 (Cyanocobalamin (Vitamin B-12)) 2,500 Mcg Tablet 1 Tab PO DAILY 30 Days Ranitidine Hcl 150 Mg Capsule 1 Cap PO BID Ativan (Lorazepam) 0.5 Mg Tablet 0.5 Mg PO PRN PRN Proair Hfa Inhaler (Albuterol Sulfate) 8.5 Gm Hfa.aer.ad 2 Puff IH PRN Q4-6HRS Allergies Allergies: Coded Allergies: Penicillins (Verified Allergy, Intermediate, N/V ITCH, 03/30/18) I S O L A T I O N *CONTACT* (Verified Allergy, Unknown, 03/29/18) carbapenem resistant PSA ROS General: No: Chills, Night Sweats PSYCHOLOGICAL ROS: No: Anxiety, Behavioral Disorder Eyes: No Blurry vision, No Decreased vision HEENT: No: Heacaches, Nasal congestion ALLERGY AND IMMUNOLOGY: No: Hives Hematological and Lymphatic: No: Bleeding Problems, Blood Clots, Brusing Respiratory: No: Cough, Hemoptysis, Pleuritic Pain Cardiovascular: No Chest Pain, No Palpitations Gastrointestinal: No Nausea, No Vomiting, No Abdominal Pain, No Diarrhea Genitourinary: No Dysuria, No Flank Pain Musculoskeletal: Yes Joint Pain; No Gait Disturbance Neurological: No Behavorial Changes, No Confusion Skin: No Rash Physical Exam General: Alert, Oriented X3 HEENT: Atraumatic, PERRLA Lungs: Clear to auscultation Heart: Regular rate, No murmurs Abdomen: Normal bowel sounds, Soft, No tenderness, No hepatosplenomegaly Extremities: No clubbing, No edema Skin: No rashes, No breakdown Neuro: Normal gait, Normal speech Psych/Mental Status: Mental status NL MUSCULOSKELETAL: No joint tenderness Vitals VITALS Vital Signs Date Time Temp Pulse Resp B/P (MAP) Pulse Ox O2 Delivery O2 Flow Rate FiO2 02/25/20 11:00 98.0 68 18 122/78 (93) 92 Room Air 98.0 Labs Labs Laboratory Tests Test 02/23/20 22:47 02/23/20 23:05 02/24/20 07:25 02/24/20 23:10 White Blood Count 2.6 x10^3/uL (4.0-11.0) 2.7 x10^3/uL (4.0-11.0) Red Blood Count 3.47 x10^6/uL (3.50-5.40) 3.36 x10^6/uL (3.50-5.40) Hemoglobin 9.4 g/dL (12.0-15.5) 9.0 g/dL (12.0-15.5) Hematocrit 28.0 % (36.0-47.0) 27.2 % (36.0-47.0) Mean Corpuscular Volume 81 fL (79-100) 81 fL (79-100) Mean Corpuscular Hemoglobin 27 pg (25-35) 27 pg (25-35) Mean Corpuscular Hemoglobin Concent 34 g/dL (31-37) 33 g/dL (31-37) Red Cell Distribution Width 15.3 % (11.5-14.5) 15.1 % (11.5-14.5) Platelet Count 181 x10^3/uL (140-400) 175 x10^3/uL (140-400) Neutrophils (%) (Auto) 40 % (31-73) 51 % (31-73) Lymphocytes (%) (Auto) 48 % (24-48) 34 % (24-48) Monocytes (%) (Auto) 9 % (0-9) 12 % (0-9) Eosinophils (%) (Auto) 1 % (0-3) 1 % (0-3) Basophils (%) (Auto) 2 % (0-3) 2 % (0-3) Neutrophils # (Auto) 1.0 x10^3/uL (1.8-7.7) 1.4 x10^3/uL (1.8-7.7) Lymphocytes # (Auto) 1.3 x10^3/uL (1.0-4.8) 0.9 x10^3/uL (1.0-4.8) Monocytes # (Auto) 0.2 x10^3/uL (0.0-1.1) 0.3 x10^3/uL (0.0-1.1) Eosinophils # (Auto) 0.0 x10^3/uL (0.0-0.7) 0.0 x10^3/uL (0.0-0.7) Basophils # (Auto) 0.0 x10^3/uL (0.0-0.2) 0.0 x10^3/uL (0.0-0.2) Sodium Level 138 mmol/L (136-145) Potassium Level 4.4 mmol/L (3.5-5.1) Chloride Level 105 mmol/L (98-107) Carbon Dioxide Level 23 mmol/L (21-32) Anion Gap 10 (6-14) Blood Urea Nitrogen 23 mg/dL (7-20) Creatinine 1.3 mg/dL (0.6-1.0) Estimated GFR (Cockcroft-Gault) 49.6 BUN/Creatinine Ratio 18 (6-20) Glucose Level 88 mg/dL (70-99) Lactic Acid Level 1.7 mmol/L (0.4-2.0) Calcium Level 8.2 mg/dL (8.5-10.1) Magnesium Level 1.6 mg/dL (1.8-2.4) Total Bilirubin 0.4 mg/dL (0.2-1.0) Aspartate Amino Transf (AST/SGOT) 102 U/L (15-37) Alanine Aminotransferase (ALT/SGPT) 97 U/L (14-59) Alkaline Phosphatase 258 U/L (46-116) Troponin I Quantitative < 0.017 ng/mL (0.000-0.055) Total Protein 5.7 g/dL (6.4-8.2) Albumin 2.4 g/dL (3.4-5.0) Albumin/Globulin Ratio 0.7 (1.0-1.7) Urine Collection Type Void Urine Color Yellow Urine Clarity Clear Urine pH 5.5 (<5.0-8.0) Urine Specific [place] 1.015 (1.000-1.030) Urine Protein Negative mg/dL (NEG-TRACE) Urine Glucose (UA) Negative mg/dL (NEG) Urine Ketones (Stick) Negative mg/dL (NEG) Urine Blood Negative (NEG) Urine Nitrite Negative (NEG) Urine Bilirubin Negative (NEG) Urine Urobilinogen Dipstick 0.2 mg/dL (0.2 mg/dL) Urine Leukocyte Esterase Negative (NEG) Urine RBC 1-2 /HPF (0-2) Urine WBC 5-10 /HPF (0-4) Urine Squamous Epithelial Cells Few /LPF Urine Bacteria Moderate /HPF (0-FEW) Urine Opiates Screen Neg (NEG) Urine Methadone Screen Neg (NEG) Urine Barbiturates Neg (NEG) Urine Phencyclidine Screen Neg (NEG) Urine Amphetamine/Methamphetamine Neg (NEG) Urine Benzodiazepines Screen Neg (NEG) Urine Cocaine Screen Neg (NEG) Urine Cannabinoids Screen Neg (NEG) Urine Ethyl Alcohol Neg (NEG) Laboratory Tests Test 02/24/20 23:10 Urine Opiates Screen Neg (NEG) Urine Methadone Screen Neg (NEG) Urine Barbiturates Neg (NEG) Urine Phencyclidine Screen Neg (NEG) Urine Amphetamine/Methamphetamine Neg (NEG) Urine Benzodiazepines Screen Neg (NEG) Urine Cocaine Screen Neg (NEG) Urine Cannabinoids Screen Neg (NEG) Urine Ethyl Alcohol Neg (NEG) Images Images Reviewed chest x-ray Assessment/Plan Assessment/Plan Assessment: Metastatic colon cancer on palliative chemotherapy Generalized weakness Hypertension Dyslipidemia Tobacco use Deconditioning Recommendations: - She recently began chemotherapy and would plan on repeating imaging to assess efficacy of treatment in the next few weeks - Reviewed CBC. Her current chemotherapy regimen of FOLFOX is generally not myelosuppressive to the extent that she would require growth factor support but will monitor CBC - Continue with supportive care per hospitalist service - Recommend checking uric acid given recent hyperuricemia noted in clinic labs - We will arrange follow-up in oncology clinic Thank you for the consult Elia Marcus MD Medical Oncology/Hematology Ph: [phone] BAR MARCUS MD Feb 25, 2020 12:22
[2020-02-25 12:36] LABS: ALBUMIN 2.4 g/dL (3.4-5.0); ALBUMIN/GLOBULIN RATIO 0.6 (1.0-1.7); CALCIUM 8.9 mg/dL (8.5-10.1); CREATININE 1.2 mg/dL (0.6-1.0); GFR 54.4; TOTAL BILIRUBIN 0.4 mg/dL (0.2-1.0); TOTAL PROTEIN 6.4 g/dL (6.4-8.2)
[2020-02-25 14:33] VITALS: BP 110/72
--- NOTE | 2020-02-25 15:38 | NUR ---
SS following for discharge planning. SS reviewed pt chart and discussed with pt RN. Pt is from home with mother and sister and is currently on room air. PT/OT ordered. SS will continue to follow for discharge planning.
--- NOTE | 2020-02-25 15:58 | NUR ---
SS following up with discharge planning. Pt's RN discussed [facility] with SS. Pt not oriented at this time. SS contacted pt's sister and discussed. Pt has no DPOA on file. Pt's family notified that pt would need DPOA on file to go to [facility] or be willing to sign her own consents. Pt reporting that she wants to return to home. Pt's sister understanding that if pt is unable to go to [facility] pt will need to return to home with family. SS will continue to follow for discharge planning.
--- NOTE | 2020-02-25 17:55 | NUR ---
Needs redirecting frequently attempts to leave or looking for family members, personal possessions, appetite poor denies pain or discomfort, will continue to notify family for support, bed alarm activated
[2020-02-25 19:00] VITALS: BP 145/92
[2020-02-25] MEDS ORDERED: NICOTINE POLACRILEX 2MG GUM PACKAGE of 12. BC PRN (20:00)
[2020-02-25] MEDS: LORazepam 0.5 MG TABLET PO PRN (20:30)
[2020-02-26 03:00] VITALS: BP 139/89
--- NOTE | 2020-02-26 04:41 | EKG ---
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
--- NOTE | 2020-02-26 04:57 | NUR ---
Patient removed IV access and refusing to let staff attempt to place another at this time.
[2020-02-26 07:49] VITALS: BP 105/66
[2020-02-26] MEDS: hydrALAZINE 25 MG TABLET PO SCH ×2 (07:59→13:56)
[2020-02-26] MEDS: levETIRAcetam 500 MG TABLET PO SCH (07:59)
[2020-02-26] MEDS: PANTOPRAZOLE 40 MG TABLET.DR. PO SCH (07:59)
[2020-02-26] MEDS: LORazepam 0.5 MG TABLET PO PRN (08:00)
[2020-02-26] MEDS: TRIAMTERENE/HCTZ 37.5/25MG TABLET. PO SCH (08:00)
[2020-02-26] MEDS: FAMOTIDINE 20 MG TABLET. PO SCH (08:00)
[2020-02-26] MEDS: CYANOCOBALAMIN (VITAMIN B-12) 1,000 MCG TABLET. PO SCH (08:00)
[2020-02-26] MEDS: MULTIVITAMIN with MINERAL TABLET. PO SCH (08:00)
[2020-02-26] MEDS: amLODIPine BESYLATE 10 MG TABLET PO SCH (08:00)
[2020-02-26] MEDS: THIAMINE 100 MG TABLET. PO SCH (08:00)
[2020-02-26] MEDS: CHOLECALCIFEROL (VITAMIN D3) 1,000 UNIT TABLET PO SCH (08:00)
[2020-02-26] MEDS: FERROUS SULFATE 325 MG TABLET. PO SCH (08:00)
[2020-02-26] MEDS: ZIPRASIDONE 20 MG CAPSULE PO SCH (08:01)
--- NOTE | 2020-02-26 08:18 | PDOC ---
PROGRESS NOTES History of Present Illness History of Present Illness Assessment/Plan Assessment/Plan DISCHARGE DX 02/25 DESIRES TO LEAVE AMA D/W DUTCH BY TEXT Metabolic encephalopathy - with underlying h/o brain aneurysm and bipolar depression with psychosis - geodon and prn lorazepam - previously was metabolic and toxic, appears to be psychosis H/o Seizures, provoked by cocaine with h/o aneurysm - keppra and thiamine, neuro f/u in 4-6 weeks JOSE G - cont IVF Cocaine use/abuse hx Hx of brain aneurysm - ?s/p clipping at [facility] DM oral meds and insulin HTN - needs better control HLD - LDL is 199, needs 80mg atorvastatin or 40mg rosuvastatin self neglect on chemo for colon cancer. She last had chemo 02/21 and she has been weaker ever since. Metastatic colon cancer on palliative chemotherapy Generalized weakness Hypertension Dyslipidemia PLAN ADMIT FEN - ADA diet PPX - lovenox FULL CODE Inpatient for acute encephalopathy that is recurrent, likely related to primary psychiatric disorder./ cocaine abuse Needs to work with PT/OT - Needs geriatric psych with her h/o seizures and sundowning in the future Sister is her nearest next of kin - d/w her need for skilled svcs on d/c consult oncology 38 MIN PT EXAM, CHART REVIEW d/c planning , > 50% OF TIME SPENT WITH EXAM, CHART REVIEW, pt care coordination LEAVING AMA 02/25 * Independent Ambulation Assistive Device * No Device Ambulation Distance * 30 feet with roller walker + 10 feet without device Ambulation Comments * No loss of balance or deviation from straight path noted. Patient reports feeling at her baseline and denies any weakness. Patient also denies any falls in the last year. Stairs Comments * No steps at home. Balance Exercises * Sitting * Weight Shifting * Standing * Reaching to Floor * Side-step * Backing Balance Exercises Comments * No loss of balance observed without device Other Information * Patient appears at functional baseline and denies need for skilled therapy services. Patient does demonstrate cognitive deficits and would not be safe to discharge home alone. RN and social welfare clerk aware. Clinical Presentation * Stable Evaluation Complexity Level * Low Complexity Pt/caregiver agrees with plan of care/goals * Decreased Mentation Patient condition at conclusion of therapy * Pt in bed * Call light in reach * Phone in reach * PtIn no apparent distress * Pt denies further needs Communicated Patient Care With (Name, Title) * DAI Hess No Further Skilled P.T. Intervention Required * Eval only-No PT Needs Discharge Recommendations * Color Developer Care * Home with 24hr care Discharge Recommendation Comments * Patient would benefit from sade-psych due to history of behaviors Justicifation of Admission Dx: Justicifation of Admission Dx: Justifications for Admission: Justification of Admission Dx: Yes Vitals Vitals Vital Signs Date Time Temp Pulse Resp B/P (MAP) Pulse Ox O2 Delivery O2 Flow Rate FiO2 02/26/20 08:00 74 105/66 02/26/20 07:49 98.3 19 92 Room Air 98.3 Physical Exam General: Alert, Oriented X3 Heart: Regular rate, No murmurs Lungs: Clear Abdomen: Normal bowel sounds, Soft, No tenderness, No hepatosplenomegaly Extremities: No clubbing, No edema Skin: No rashes, No breakdown Labs LABS Laboratory Tests Test 02/25/20 11:40 White Blood Count 5.0 x10^3/uL (4.0-11.0) Red Blood Count 4.06 x10^6/uL (3.50-5.40) Hemoglobin 10.8 g/dL (12.0-15.5) Hematocrit 32.6 % (36.0-47.0) Mean Corpuscular Volume 80 fL (79-100) Mean Corpuscular Hemoglobin 27 pg (25-35) Mean Corpuscular Hemoglobin Concent 33 g/dL (31-37) Red Cell Distribution Width 14.8 % (11.5-14.5) Platelet Count 173 x10^3/uL (140-400) Neutrophils (%) (Auto) 63 % (31-73) Lymphocytes (%) (Auto) 24 % (24-48) Monocytes (%) (Auto) 11 % (0-9) Eosinophils (%) (Auto) 1 % (0-3) Basophils (%) (Auto) 1 % (0-3) Neutrophils # (Auto) 3.2 x10^3/uL (1.8-7.7) Lymphocytes # (Auto) 1.2 x10^3/uL (1.0-4.8) Monocytes # (Auto) 0.5 x10^3/uL (0.0-1.1) Eosinophils # (Auto) 0.0 x10^3/uL (0.0-0.7) Basophils # (Auto) 0.1 x10^3/uL (0.0-0.2) Sodium Level 135 mmol/L (136-145) Potassium Level 4.0 mmol/L (3.5-5.1) Chloride Level 102 mmol/L (98-107) Carbon Dioxide Level 22 mmol/L (21-32) Anion Gap 11 (6-14) Blood Urea Nitrogen 15 mg/dL (7-20) Creatinine 1.2 mg/dL (0.6-1.0) Estimated GFR (Cockcroft-Gault) 54.4 BUN/Creatinine Ratio 13 (6-20) Glucose Level 100 mg/dL (70-99) Uric Acid 3.6 mg/dL (2.6-6.0) Calcium Level 8.9 mg/dL (8.5-10.1) Total Bilirubin 0.4 mg/dL (0.2-1.0) Aspartate Amino Transf (AST/SGOT) 94 U/L (15-37) Alanine Aminotransferase (ALT/SGPT) 82 U/L (14-59) Alkaline Phosphatase 258 U/L (46-116) Total Protein 6.4 g/dL (6.4-8.2) Albumin 2.4 g/dL (3.4-5.0) Albumin/Globulin Ratio 0.6 (1.0-1.7) Assessment and Plan Assessmemt and Plan Problems Medical Problems: (1) UTI (urinary tract infection) Status: Acute Comment Review of Relevant I have reviewed the following items remi (where applicable) has been applied. Labs Laboratory Tests Test 02/24/20 23:10 02/25/20 11:40 Urine Opiates Screen Neg (NEG) Urine Methadone Screen Neg (NEG) Urine Barbiturates Neg (NEG) Urine Phencyclidine Screen Neg (NEG) Urine Amphetamine/Methamphetamine Neg (NEG) Urine Benzodiazepines Screen Neg (NEG) Urine Cocaine Screen Neg (NEG) Urine Cannabinoids Screen Neg (NEG) Urine Ethyl Alcohol Neg (NEG) White Blood Count 5.0 x10^3/uL (4.0-11.0) Red Blood Count 4.06 x10^6/uL (3.50-5.40) Hemoglobin 10.8 g/dL (12.0-15.5) Hematocrit 32.6 % (36.0-47.0) Mean Corpuscular Volume 80 fL (79-100) Mean Corpuscular Hemoglobin 27 pg (25-35) Mean Corpuscular Hemoglobin Concent 33 g/dL (31-37) Red Cell Distribution Width 14.8 % (11.5-14.5) Platelet Count 173 x10^3/uL (140-400) Neutrophils (%) (Auto) 63 % (31-73) Lymphocytes (%) (Auto) 24 % (24-48) Monocytes (%) (Auto) 11 % (0-9) Eosinophils (%) (Auto) 1 % (0-3) Basophils (%) (Auto) 1 % (0-3) Neutrophils # (Auto) 3.2 x10^3/uL (1.8-7.7) Lymphocytes # (Auto) 1.2 x10^3/uL (1.0-4.8) Monocytes # (Auto) 0.5 x10^3/uL (0.0-1.1) Eosinophils # (Auto) 0.0 x10^3/uL (0.0-0.7) Basophils # (Auto) 0.1 x10^3/uL (0.0-0.2) Sodium Level 135 mmol/L (136-145) Potassium Level 4.0 mmol/L (3.5-5.1) Chloride Level 102 mmol/L (98-107) Carbon Dioxide Level 22 mmol/L (21-32) Anion Gap 11 (6-14) Blood Urea Nitrogen 15 mg/dL (7-20) Creatinine 1.2 mg/dL (0.6-1.0) Estimated GFR (Cockcroft-Gault) 54.4 BUN/Creatinine Ratio 13 (6-20) Glucose Level 100 mg/dL (70-99) Uric Acid 3.6 mg/dL (2.6-6.0) Calcium Level 8.9 mg/dL (8.5-10.1) Total Bilirubin 0.4 mg/dL (0.2-1.0) Aspartate Amino Transf (AST/SGOT) 94 U/L (15-37) Alanine Aminotransferase (ALT/SGPT) 82 U/L (14-59) Alkaline Phosphatase 258 U/L (46-116) Total Protein 6.4 g/dL (6.4-8.2) Albumin 2.4 g/dL (3.4-5.0) Albumin/Globulin Ratio 0.6 (1.0-1.7) Laboratory Tests Test 02/25/20 11:40 White Blood Count 5.0 x10^3/uL (4.0-11.0) Red Blood Count 4.06 x10^6/uL (3.50-5.40) Hemoglobin 10.8 g/dL (12.0-15.5) Hematocrit 32.6 % (36.0-47.0) Mean Corpuscular Volume 80 fL (79-100) Mean Corpuscular Hemoglobin 27 pg (25-35) Mean Corpuscular Hemoglobin Concent 33 g/dL (31-37) Red Cell Distribution Width 14.8 % (11.5-14.5) Platelet Count 173 x10^3/uL (140-400) Neutrophils (%) (Auto) 63 % (31-73) Lymphocytes (%) (Auto) 24 % (24-48) Monocytes (%) (Auto) 11 % (0-9) Eosinophils (%) (Auto) 1 % (0-3) Basophils (%) (Auto) 1 % (0-3) Neutrophils # (Auto) 3.2 x10^3/uL (1.8-7.7) Lymphocytes # (Auto) 1.2 x10^3/uL (1.0-4.8) Monocytes # (Auto) 0.5 x10^3/uL (0.0-1.1) Eosinophils # (Auto) 0.0 x10^3/uL (0.0-0.7) Basophils # (Auto) 0.1 x10^3/uL (0.0-0.2) Sodium Level 135 mmol/L (136-145) Potassium Level 4.0 mmol/L (3.5-5.1) Chloride Level 102 mmol/L (98-107) Carbon Dioxide Level 22 mmol/L (21-32) Anion Gap 11 (6-14) Blood Urea Nitrogen 15 mg/dL (7-20) Creatinine 1.2 mg/dL (0.6-1.0) Estimated GFR (Cockcroft-Gault) 54.4 BUN/Creatinine Ratio 13 (6-20) Glucose Level 100 mg/dL (70-99) Uric Acid 3.6 mg/dL (2.6-6.0) Calcium Level 8.9 mg/dL (8.5-10.1) Total Bilirubin 0.4 mg/dL (0.2-1.0) Aspartate Amino Transf (AST/SGOT) 94 U/L (15-37) Alanine Aminotransferase (ALT/SGPT) 82 U/L (14-59) Alkaline Phosphatase 258 U/L (46-116) Total Protein 6.4 g/dL (6.4-8.2) Albumin 2.4 g/dL (3.4-5.0) Albumin/Globulin Ratio 0.6 (1.0-1.7) Microbiology 02/24/20 Blood Culture - Preliminary, Resulted NO GROWTH AFTER 2 DAYS 02/23/20 Urine Culture - Final, Complete Medications Current Medications Sodium Chloride 1,000 ml @ 1,000 mls/hr 1X ONCE IV Last administered on 02/23/20at 21:30; Start 02/23/20 at 23:00; Stop 02/23/20 at 23:59; Status DC Levofloxacin/ Dextrose (Levaquin Per Pharmacy) 1 each PRN DAILY PRN MC SEE COMMENTS; Start 02/24/20 at 00:00 Zolpidem Tartrate (Ambien) 5 mg 1X ONCE PO Last administered on 02/24/20at 01:55; Start 02/24/20 at 00:30; Stop 02/24/20 at 00:31; Status DC Sodium Chloride 1,000 ml @ 75 mls/hr [id number] IV Last administered on 02/24/20at 01:57; Start 02/24/20 at 00:30; Stop 02/24/20 at 00:31; Status DC Levofloxacin/ Dextrose 100 ml @ 100 mls/hr 1X ONCE IV Last administered on 02/24/20at 00:45; Start 02/24/20 at 00:30; Stop 02/24/20 at 01:29; Status DC Levofloxacin/ Dextrose 50 ml @ 50 mls/hr Q24H IV Last administered on 02/25/20at 22:15; Start 02/24/20 at 23:00 Albuterol Sulfate (Ventolin Neb Soln) 2.5 mg PRN Q4HRS PRN CONT NEB WHEEZING; Start 02/24/20 at 13:30; Stop 02/25/20 at 12:45; Status DC Amlodipine Besylate (Norvasc) 10 mg DAILY PO Last administered on 02/26/20at 08:00; Start 02/24/20 at 14:00 Ferrous Sulfate (Feosol) 325 mg DAILY08 PO Last administered on 02/26/20at 08:00; Start 02/24/20 at 14:00 Hydralazine HCl (Apresoline) 25 mg TID PO Last administered on 02/26/20at 07:59; Start 02/24/20 at 14:00 Lorazepam (Ativan) 0.5 mg PRN Q6HRS PRN PO ANXIETY / AGITATION; Start 02/24/20 at 13:30; Stop 02/25/20 at 13:47; Status DC Pantoprazole Sodium (Protonix) 40 mg DAILYAC PO Last administered on 02/26/20at 07:59; Start 02/24/20 at 16:30 Thiamine Mononitrate (Vitamin B-1) 100 mg DAILY PO Last administered on 02/26/20at 08:00; Start 02/24/20 at 14:00 Triamterene/HCTZ (Maxzide 37.5/ 25mg) 1 tab DAILY PO Last administered on 02/26/20at 08:00; Start 02/24/20 at 14:00 Ziprasidone (Geodon) 20 mg BID PO Last administered on 02/26/20at 08:01; Start 02/24/20 at 21:00 Cyanocobalamin (Vitamin B-12) 2,500 mcg DAILY PO Last administered on 02/26/20at 08:00; Start 02/24/20 at 14:00 Non-Formulary Medication (Levetiracetam ) 1 tab BID PO ; Start 02/24/20 at 21:00; Status UNV Multivitamins (Thera M Plus) 1 tab DAILY PO Last administered on 02/26/20at 08:00; Start 02/24/20 at 14:00 Famotidine (Pepcid) 20 mg DAILY PO Last administered on 02/26/20at 08:00; Start 02/24/20 at 14:00 Vitamin D (Vitamin D3) 1,000 unit DAILY PO Last administered on 02/26/20at 08:00; Start 02/24/20 at 14:00 Levetiracetam (Keppra) 500 mg BID PO Last administered on 02/26/20at 07:59; Start 02/24/20 at 21:00 Sodium Chloride (Normal Saline Flush) 3 ml QSHIFT PRN IV AFTER MEDS AND BLOOD DRAWS; Start 02/25/20 at 09:15 Ondansetron HCl (Zofran) 4 mg PRN Q4HRS PRN IV NAUSEA/VOMITING; Start 02/25/20 at 09:15 Acetaminophen (Tylenol) 650 mg PRN Q4HRS PRN PO TEMP OVER 100.4F OR MILD PAIN; Start 02/25/20 at 09:15 Sodium Monofluorophosphate (Fleet Adult) 133 ml PRN DAILY PRN OR CONSTIPATION; Start 02/25/20 at 09:15 Docusate Sodium (Colace) 100 mg PRN BID PRN PO HARD STOOLS; Start 02/25/20 at 09:15 Albuterol Sulfate (Ventolin Neb Soln) 2.5 mg PRN Q4HRS PRN NEB SHORTNESS OF BREATH; Start 02/25/20 at 09:15 Guaifenesin (Robitussin) 200 mg PRN Q4HRS PRN PO COUGH; Start 02/25/20 at 09:15 Lorazepam (Ativan) 0.5 mg PRN Q4HRS PRN PO ANXIETY / AGITATION Last administered on 02/26/20at 08:00; Start 02/25/20 at 09:15 Lorazepam (Ativan Inj) 2 mg PRN Q4HRS PRN IV ANXIETY / AGITATION; Start 02/25/20 at 09:15 Enoxaparin Sodium (Lovenox 40mg Syringe) 40 mg Q24H SQ Last administered on 02/25/20at 10:06; Start 02/25/20 at 10:00 Nicotine Polacrilex (Nicorette Gum) 1 each PRN Q1HR PRN BC SMOKING CESSATION Last administered on 02/25/20at 20:30; Start 02/25/20 at 20:00 Active Scripts Active Geodon (Ziprasidone Hcl) 20 Mg Capsule 1 Cap PO BID Triamterene-Hctz 37.5-25 Mg Tb (Triamterene/Hydrochlorothiazid) 1 Each Tablet 1 Tab PO DAILY 30 Days Hydralazine Hcl 25 Mg Tablet 25 Mg PO PRN TID PRN 30 Days For SBP > 150mmHg take as needed 3 times per day Amlodipine Besylate 10 Mg Tablet 10 Mg PO DAILY 30 Days Vitamin B-1 (Thiamine Mononitrate) 100 Mg Tablet 100 Mg PO DAILY 30 Days Reported Compazine (Prochlorperazine Maleate) 10 Mg Tablet 1 Tab PO Q6HRS 7 Days Protonix (Pantoprazole Sodium) 40 Mg Tablet.dr 40 Mg PO DAILYAC Gummi Bear Multivitamin (Multivitamin) 1 Each Tab.chew 1 Each PO DAILY Ferrous Sulfate 325 Mg Tablet 1 Tab PO DAILY Levetiracetam 500 Mg Tab.er.24h 1 Tab PO BID 30 Days Hydralazine Hcl 25 Mg Tablet 1 Tab PO TID [Vitamin D3] 25 Mcg PO DAILY Vitamin B12 (Cyanocobalamin (Vitamin B-12)) 2,500 Mcg Tablet 1 Tab PO DAILY 30 Days Ranitidine Hcl 150 Mg Capsule 1 Cap PO BID Ativan (Lorazepam) 0.5 Mg Tablet 0.5 Mg PO PRN PRN Proair Hfa Inhaler (Albuterol Sulfate) 8.5 Gm Hfa.aer.ad 2 Puff IH PRN Q4-6HRS Vitals/I & O Vital Sign - Last 24 Hours 02/25/20 02/25/20 02/25/20 02/25/20 08:37 08:38 11:00 14:00 Temp 98.0 98.0 Pulse 65 65 68 80 Resp 18 B/P (MAP) 119/77 119/77 122/78 (93) 110/72 Pulse Ox 92 O2 Delivery Room Air 02/25/20 02/25/20 02/25/20 02/25/20 14:33 19:00 20:00 20:29 Temp 98.1 98.1 Pulse 80 110 70 Resp 18 B/P (MAP) 110/72 (85) 145/92 (109) 137/83 Pulse Ox 91 O2 Delivery Room Air Room Air 02/26/20 02/26/20 02/26/20 02/26/20 03:00 07:49 07:59 08:00 Temp 98.3 98.3 98.3 98.3 Pulse 98 74 74 74 Resp 18 19 B/P (MAP) 139/89 (106) 105/66 (79) 105/66 105/66 Pulse Ox 90 92 O2 Delivery Room Air Room Air Intake and Output 02/25/20 02/25/20 02/26/20 15:00 23:00 07:00 Intake Total 440 ml 730 ml Balance 440 ml 730 ml Nutrition Consultation Dietary Evaluation: Recommendations by RD: Dietary education by RD, Increase Calorie Intake, Protein supplementation Comments: RN is offering snacks/ supplements from unit prn obtained food preferences from family sending magic cup lunch and dinners Expected Outcomes/Goals: to meet >75% est nutr needs Malnutrition Findings: Body Fat Depletion (Non Severe: Mod to Severe Weight Status: Underweight Justicifation of Admission Dx: Justifications for Admission: Justification of Admission Dx: Yes REGINA TRAVIS MD Feb 26, 2020 08:18
[2020-02-26] MEDS: ENOXAPARIN 40 MG/0.4 ML SYRINGE. SQ SCH (10:00)
--- NOTE | 2020-02-26 10:13 | NUR ---
NICOL following. Discussed with RN, pt from home. PT recommending [facility], which pt does not want. PT currently on chemo. NICOL to determine if pt needs home health at discharge. NICOL will continue to follow. RN anticipates possible discharge home today. Addendum: 02/26/20 at 1413 by OSIRIS CAMARENA Pt transferred to [facility]. Jose Ivan RN meeting with pt today for home health at discharge. Plan is for pt to discharge home with home health today. DAI notified. Addendum: 02/26/20 at 1633 by OSIRIS CAMARENA [facility] declined to take pt as they have had her in the past and cannot readmit, as pt needs a home health provider with psych. [facility] is not in network, [facility] is at capacity. [facility] advised SW to fax referral, however said they cannot give an acceptance decision this afternoon as they are "walking out the door now." NICOL faxed referral to [facility], notified RN. NICOL will continue to follow.
[2020-02-26 10:44] LABS: BASO % 1 % (0-3); EOS % 1 % (0-3); HEMATOCRIT 28.4 % (36.0-47.0); HEMOGLOBIN 9.3 g/dL (12.0-15.5); LYMPH # 0.9 x10^3/uL (1.0-4.8); LYMPH % 19 % (24-48); MEAN CORPUSCULAR HEMOGLOBIN 27 pg (25-35); MEAN CORPUSCULAR HGB CONC 33 g/dL (31-37); MEAN CORPUSCULAR VOLUME 81 fL (79-100); MONO # 0.7 x10^3/uL (0.0-1.1); MONO % 15 % (0-9); NEUT # 3.1 x10^3/uL (1.8-7.7); NEUT % 64 % (31-73); PLATELET COUNT 150 x10^3/uL (140-400); RED CELL DISTRIBUTION WIDTH 15.2 % (11.5-14.5); WHITE BLOOD COUNT 4.7 x10^3/uL (4.0-11.0)
[2020-02-26 11:00] VITALS: BP 103/69
[2020-02-26 11:14] LABS: ALBUMIN 2.3 g/dL (3.4-5.0); ALBUMIN/GLOBULIN RATIO 0.7 (1.0-1.7); CALCIUM 8.7 mg/dL (8.5-10.1); CREATININE 1.1 mg/dL (0.6-1.0); GFR 60.1; POTASSIUM 4.5 mmol/L (3.5-5.1); TOTAL BILIRUBIN 0.3 mg/dL (0.2-1.0); TOTAL PROTEIN 5.6 g/dL (6.4-8.2)
--- NOTE | 2020-02-26 11:25 | NUR ---
Report given to Kaylan LALA.
--- NOTE | 2020-02-26 11:59 | PDOC3 ---
Discharge Summary Date of Admission: Feb 24, 2020 Date of Discharge: Feb 26, 2020 Follow-Up: Other (LEFT AMA) Admitting Diagnosis comment: DISCHARGE DX 02/25 DESIRES TO LEAVE AMA D/W DUTCH BY TEXT Metabolic encephalopathy - with underlying h/o brain aneurysm and bipolar depression with psychosis - geodon and prn lorazepam - previously was metabolic and toxic, appears to be psychosis H/o Seizures, provoked by cocaine with h/o aneurysm - keppra and thiamine, neuro f/u in 4-6 weeks JOSE G - cont IVF Cocaine use/abuse hx Hx of brain aneurysm - ?s/p clipping at [facility] DM oral meds and insulin HTN - needs better control HLD - LDL is 199, needs 80mg atorvastatin or 40mg rosuvastatin self neglect on chemo for colon cancer. She last had chemo 02/21 and she has been weaker ever since. Metastatic colon cancer on palliative chemotherapy Generalized weakness Hypertension Dyslipidemia PLAN ADMIT FEN - ADA diet PPX - lovenox FULL CODE Inpatient for acute encephalopathy that is recurrent, likely related to primary psychiatric disorder./ cocaine abuse Needs to work with PT/OT - Needs geriatric psych with her h/o seizures and sundowning in the future Sister is her nearest next of kin - d/w her need for skilled svcs on d/c consult oncology 38 MIN PT EXAM, CHART REVIEW d/c planning , > 50% OF TIME SPENT WITH EXAM, CHART REVIEW, pt care coordination LEAVING AMA 02/25 * Independent Ambulation Assistive Device * No Device Ambulation Distance * 30 feet with roller walker + 10 feet without device Ambulation Comments * No loss of balance or deviation from straight path noted. Patient reports feeling at her baseline and denies any weakness. Patient also denies any falls in the last year. Stairs Comments * No steps at home. Balance Exercises * Sitting * Weight Shifting * Standing * Reaching to Floor * Side-step * Backing Balance Exercises Comments * No loss of balance observed without device Other Information * Patient appears at functional baseline and denies need for skilled therapy services. Patient does demonstrate cognitive deficits and would not be safe to discharge home alone. RN and social services manager aware. Clinical Presentation * Stable Evaluation Complexity Level * Low Complexity Pt/caregiver agrees with plan of care/goals * Decreased Mentation Patient condition at conclusion of therapy * Pt in bed * Call light in reach * Phone in reach * PtIn no apparent distress * Pt denies further needs Communicated Patient Care With (Name, Title) * Jimena RN No Further Skilled P.T. Intervention Required * Eval only-No PT Needs Discharge Recommendations * Detention Care * Home with 24hr care Discharge Recommendation Comments * Patient would benefit from sade-psych due to history of behaviors Justicifation of Admission Dx: Justicifation of Admission Dx: Justifications for Admission: Justification of Admission Dx: Yes Vitals Vitals Vital Signs Date Time Temp Pulse Resp B/P (MAP) Pulse Ox O2 Delivery O2 Flow Rate FiO2 02/26/20 08:00 74 105/66 02/26/20 07:49 98.3 19 92 Room Air 98.3 Physical Exam General: Alert, Oriented X3 Heart: Regular rate, No murmurs Lungs: Clear Abdomen: Normal bowel sounds, Soft, No tenderness, No hepatosplenomegaly Extremities: No clubbing, No edema Skin: No rashes, No breakdown FINAL DIAGNOSIS Problems Medical Problems: (1) UTI (urinary tract infection) Status: Acute Brief Hospital Course Ms. Cheek is a 64 old [sex] who presented with [ WEAKNESS, COLON CANCER ] CONDITION AT DISCHARGE: Comment (LEFT AMA) Discharge Medications Current Medications Sodium Chloride 1,000 ml @ 1,000 mls/hr 1X ONCE IV Last administered on 02/23/20at 21:30; Start 02/23/20 at 23:00; Stop 02/23/20 at 23:59; Status DC Levofloxacin/ Dextrose (Levaquin Per Pharmacy) 1 each PRN DAILY PRN MC SEE COMMENTS; Start 02/24/20 at 00:00 Zolpidem Tartrate (Ambien) 5 mg 1X ONCE PO Last administered on 02/24/20at 01:55; Start 02/24/20 at 00:30; Stop 02/24/20 at 00:31; Status DC Sodium Chloride 1,000 ml @ 75 mls/hr [id number] IV Last administered on 02/24/20at 01:57; Start 02/24/20 at 00:30; Stop 02/24/20 at 00:31; Status DC Levofloxacin/ Dextrose 100 ml @ 100 mls/hr 1X ONCE IV Last administered on 02/24/20at 00:45; Start 02/24/20 at 00:30; Stop 02/24/20 at 01:29; Status DC Levofloxacin/ Dextrose 50 ml @ 50 mls/hr Q24H IV Last administered on 02/25/20at 22:15; Start 02/24/20 at 23:00; Stop 02/26/20 at 11:00; Status DC Albuterol Sulfate (Ventolin Neb Soln) 2.5 mg PRN Q4HRS PRN CONT NEB WHEEZING; Start 02/24/20 at 13:30; Stop 02/25/20 at 12:45; Status DC Amlodipine Besylate (Norvasc) 10 mg DAILY PO Last administered on 02/26/20at 08:00; Start 02/24/20 at 14:00 Ferrous Sulfate (Feosol) 325 mg DAILY08 PO Last administered on 02/26/20at 08:00; Start 02/24/20 at 14:00 Hydralazine HCl (Apresoline) 25 mg TID PO Last administered on 02/26/20at 07:59; Start 02/24/20 at 14:00 Lorazepam (Ativan) 0.5 mg PRN Q6HRS PRN PO ANXIETY / AGITATION; Start 02/24/20 at 13:30; Stop 02/25/20 at 13:47; Status DC Pantoprazole Sodium (Protonix) 40 mg DAILYAC PO Last administered on 02/26/20at 07:59; Start 02/24/20 at 16:30 Thiamine Mononitrate (Vitamin B-1) 100 mg DAILY PO Last administered on 02/26/20at 08:00; Start 02/24/20 at 14:00 Triamterene/HCTZ (Maxzide 37.5/ 25mg) 1 tab DAILY PO Last administered on 02/26/20at 08:00; Start 02/24/20 at 14:00 Ziprasidone (Geodon) 20 mg BID PO Last administered on 02/26/20at 08:01; Start 02/24/20 at 21:00 Cyanocobalamin (Vitamin B-12) 2,500 mcg DAILY PO Last administered on 02/26/20at 08:00; Start 02/24/20 at 14:00 Non-Formulary Medication (Levetiracetam ) 1 tab BID PO ; Start 02/24/20 at 21:00; Status UNV Multivitamins (Thera M Plus) 1 tab DAILY PO Last administered on 02/26/20at 08 :00; Start 02/24/20 at 14:00 Famotidine (Pepcid) 20 mg DAILY PO Last administered on 02/26/20at 08:00; Start 02/24/20 at 14:00 Vitamin D (Vitamin D3) 1,000 unit DAILY PO Last administered on 02/26/20at 08:00; Start 02/24/20 at 14:00 Levetiracetam (Keppra) 500 mg BID PO Last administered on 02/26/20at 07:59; Start 02/24/20 at 21:00 Sodium Chloride (Normal Saline Flush) 3 ml QSHIFT PRN IV AFTER MEDS AND BLOOD DRAWS; Start 02/25/20 at 09:15 Ondansetron HCl (Zofran) 4 mg PRN Q4HRS PRN IV NAUSEA/VOMITING; Start 02/25/20 at 09:15 Acetaminophen (Tylenol) 650 mg PRN Q4HRS PRN PO TEMP OVER 100.4F OR MILD PAIN; Start 02/25/20 at 09:15 Sodium Monofluorophosphate (Fleet Adult) 133 ml PRN DAILY PRN [place] CONSTIPATION; Start 02/25/20 at 09:15 Docusate Sodium (Colace) 100 mg PRN BID PRN PO HARD STOOLS; Start 02/25/20 at 09:15 Albuterol Sulfate (Ventolin Neb Soln) 2.5 mg PRN Q4HRS PRN NEB SHORTNESS OF BREATH; Start 02/25/20 at 09:15 Guaifenesin (Robitussin) 200 mg PRN Q4HRS PRN PO COUGH; Start 02/25/20 at 09:15 Lorazepam (Ativan) 0.5 mg PRN Q4HRS PRN PO ANXIETY / AGITATION Last administered on 02/26/20at 08:00; Start 02/25/20 at 09:15 Lorazepam (Ativan Inj) 2 mg PRN Q4HRS PRN IV ANXIETY / AGITATION; Start 02/25/20 at 09:15 Enoxaparin Sodium (Lovenox 40mg Syringe) 40 mg Q24H SQ Last administered on 02/25/20at 10:06; Start 02/25/20 at 10:00 Nicotine Polacrilex (Nicorette Gum) 1 each PRN Q1HR PRN BC SMOKING CESSATION Last administered on 02/25/20at 20:30; Start 02/25/20 at 20:00 Levofloxacin (Levaquin) 250 mg HS PO ; Start 02/26/20 at 21:00 Active Scripts Active Geodon (Ziprasidone Hcl) 20 Mg Capsule 1 Cap PO BID Triamterene-Hctz 37.5-25 Mg Tb (Triamterene/Hydrochlorothiazid) 1 Each Tablet 1 Tab PO DAILY 30 Days Hydralazine Hcl 25 Mg Tablet 25 Mg PO PRN TID PRN 30 Days For SBP > 150mmHg take as needed 3 times per day Amlodipine Besylate 10 Mg Tablet 10 Mg PO DAILY 30 Days Vitamin B-1 (Thiamine Mononitrate) 100 Mg Tablet 100 Mg PO DAILY 30 Days Reported Compazine (Prochlorperazine Maleate) 10 Mg Tablet 1 Tab PO Q6HRS 7 Days Protonix (Pantoprazole Sodium) 40 Mg Tablet.dr 40 Mg PO DAILYAC Gummi Bear Multivitamin (Multivitamin) 1 Each Tab.chew 1 Each PO DAILY Ferrous Sulfate 325 Mg Tablet 1 Tab PO DAILY Levetiracetam 500 Mg Tab.er.24h 1 Tab PO BID 30 Days Hydralazine Hcl 25 Mg Tablet 1 Tab PO TID [Vitamin D3] 25 Mcg PO DAILY Vitamin B12 (Cyanocobalamin (Vitamin B-12)) 2,500 Mcg Tablet 1 Tab PO DAILY 30 Days Ranitidine Hcl 150 Mg Capsule 1 Cap PO BID Ativan (Lorazepam) 0.5 Mg Tablet 0.5 Mg PO PRN PRN Proair Hfa Inhaler (Albuterol Sulfate) 8.5 Gm Hfa.aer.ad 2 Puff IH PRN Q4-6HRS Vital Signs Vital Signs Date Time Temp Pulse Resp B/P (MAP) Pulse Ox O2 Delivery O2 Flow Rate FiO2 02/26/20 08:00 74 105/66 02/26/20 08:00 Room Air 02/26/20 07:49 98.3 19 92 98.3 Labs Laboratory Tests Test 02/24/20 23:10 02/25/20 11:40 02/26/20 09:35 02/26/20 09:55 Urine Opiates Screen Neg (NEG) Urine Methadone Screen Neg (NEG) Urine Barbiturates Neg (NEG) Urine Phencyclidine Screen Neg (NEG) Urine Amphetamine/Methamphetamine Neg (NEG) Urine Benzodiazepines Screen Neg (NEG) Urine Cocaine Screen Neg (NEG) Urine Cannabinoids Screen Neg (NEG) Urine Ethyl Alcohol Neg (NEG) White Blood Count 5.0 x10^3/uL (4.0-11.0) 4.7 x10^3/uL (4.0-11.0) Red Blood Count 4.06 x10^6/uL (3.50-5.40) 3.50 x10^6/uL (3.50-5.40) Hemoglobin 10.8 g/dL (12.0-15.5) 9.3 g/dL (12.0-15.5) Hematocrit 32.6 % (36.0-47.0) 28.4 % (36.0-47.0) Mean Corpuscular Volume 80 fL (79-100) 81 fL (79-100) Mean Corpuscular Hemoglobin 27 pg (25-35) 27 pg (25-35) Mean Corpuscular Hemoglobin Concent 33 g/dL (31-37) 33 g/dL (31-37) Red Cell Distribution Width 14.8 % (11.5-14.5) 15.2 % (11.5-14.5) Platelet Count 173 x10^3/uL (140-400) 150 x10^3/uL (140-400) Neutrophils (%) (Auto) 63 % (31-73) 64 % (31-73) Lymphocytes (%) (Auto) 24 % (24-48) 19 % (24-48) Monocytes (%) (Auto) 11 % (0-9) 15 % (0-9) Eosinophils (%) (Auto) 1 % (0-3) 1 % (0-3) Basophils (%) (Auto) 1 % (0-3) 1 % (0-3) Neutrophils # (Auto) 3.2 x10^3/uL (1.8-7.7) 3.1 x10^3/uL (1.8-7.7) Lymphocytes # (Auto) 1.2 x10^3/uL (1.0-4.8) 0.9 x10^3/uL (1.0-4.8) Monocytes # (Auto) 0.5 x10^3/uL (0.0-1.1) 0.7 x10^3/uL (0.0-1.1) Eosinophils # (Auto) 0.0 x10^3/uL (0.0-0.7) 0.0 x10^3/uL (0.0-0.7) Basophils # (Auto) 0.1 x10^3/uL (0.0-0.2) 0.0 x10^3/uL (0.0-0.2) Sodium Level 135 mmol/L (136-145) 136 mmol/L (136-145) Potassium Level 4.0 mmol/L (3.5-5.1) 4.5 mmol/L (3.5-5.1) Chloride Level 102 mmol/L (98-107) 103 mmol/L (98-107) Carbon Dioxide Level 22 mmol/L (21-32) 19 mmol/L (21-32) Anion Gap 11 (6-14) 14 (6-14) Blood Urea Nitrogen 15 mg/dL (7-20) 15 mg/dL (7-20) Creatinine 1.2 mg/dL (0.6-1.0) 1.1 mg/dL (0.6-1.0) Estimated GFR (Cockcroft-Gault) 54.4 60.1 BUN/Creatinine Ratio 13 (6-20) 14 (6-20) Glucose Level 100 mg/dL (70-99) 104 mg/dL (70-99) Uric Acid 3.6 mg/dL (2.6-6.0) Calcium Level 8.9 mg/dL (8.5-10.1) 8.7 mg/dL (8.5-10.1) Total Bilirubin 0.4 mg/dL (0.2-1.0) 0.3 mg/dL (0.2-1.0) Aspartate Amino Transf (AST/SGOT) 94 U/L (15-37) 91 U/L (15-37) Alanine Aminotransferase (ALT/SGPT) 82 U/L (14-59) 68 U/L (14-59) Alkaline Phosphatase 258 U/L (46-116) 240 U/L (46-116) Total Protein 6.4 g/dL (6.4-8.2) 5.6 g/dL (6.4-8.2) Albumin 2.4 g/dL (3.4-5.0) 2.3 g/dL (3.4-5.0) Albumin/Globulin Ratio 0.6 (1.0-1.7) 0.7 (1.0-1.7) Laboratory Tests Test 02/26/20 09:35 02/26/20 09:55 Sodium Level 136 mmol/L (136-145) Potassium Level 4.5 mmol/L (3.5-5.1) Chloride Level 103 mmol/L (98-107) Carbon Dioxide Level 19 mmol/L (21-32) Anion Gap 14 (6-14) Blood Urea Nitrogen 15 mg/dL (7-20) Creatinine 1.1 mg/dL (0.6-1.0) Estimated GFR (Cockcroft-Gault) 60.1 BUN/Creatinine Ratio 14 (6-20) Glucose Level 104 mg/dL (70-99) Calcium Level 8.7 mg/dL (8.5-10.1) Total Bilirubin 0.3 mg/dL (0.2-1.0) Aspartate Amino Transf (AST/SGOT) 91 U/L (15-37) Alanine Aminotransferase (ALT/SGPT) 68 U/L (14-59) Alkaline Phosphatase 240 U/L (46-116) Total Protein 5.6 g/dL (6.4-8.2) Albumin 2.3 g/dL (3.4-5.0) Albumin/Globulin Ratio 0.7 (1.0-1.7) White Blood Count 4.7 x10^3/uL (4.0-11.0) Red Blood Count 3.50 x10^6/uL (3.50-5.40) Hemoglobin 9.3 g/dL (12.0-15.5) Hematocrit 28.4 % (36.0-47.0) Mean Corpuscular Volume 81 fL (79-100) Mean Corpuscular Hemoglobin 27 pg (25-35) Mean Corpuscular Hemoglobin Concent 33 g/dL (31-37) Red Cell Distribution Width 15.2 % (11.5-14.5) Platelet Count 150 x10^3/uL (140-400) Neutrophils (%) (Auto) 64 % (31-73) Lymphocytes (%) (Auto) 19 % (24-48) Monocytes (%) (Auto) 15 % (0-9) Eosinophils (%) (Auto) 1 % (0-3) Basophils (%) (Auto) 1 % (0-3) Neutrophils # (Auto) 3.1 x10^3/uL (1.8-7.7) Lymphocytes # (Auto) 0.9 x10^3/uL (1.0-4.8) Monocytes # (Auto) 0.7 x10^3/uL (0.0-1.1) Eosinophils # (Auto) 0.0 x10^3/uL (0.0-0.7) Basophils # (Auto) 0.0 x10^3/uL (0.0-0.2) Allergies Allergies Coded Allergies Type Severity Reaction Last Updated Verified Penicillins Allergy Intermediate N/V ITCH 03/30/18 Yes I S O L A T I O N *CONTACT* Allergy Unknown 03/29/18 Yes Disposition/Orders: Other (LEFT AMA ) Justicifation of Admission Dx: Justifications for Admission: Justification of Admission Dx: Yes REGINA TRAVIS MD Feb 26, 2020 11:59
[2020-02-26] MEDS ORDERED: ACET325T9 PO (12:01)
[2020-02-26] MEDS ORDERED: TRAZ-118 PO (12:47)
[2020-02-26] MEDS ORDERED: LEVO500T59 PO (12:48)
--- NOTE | 2020-02-26 12:55 | SNU/HH DC ---
DISCHARGE WITH HOME HEALTH DISCHARGE INFORMATION: Discharge Date: Feb 26, 2020 Final Diagnosis: Problems Medical Problems: (1) UTI (urinary tract infection) Status: Acute Condition on Discharge: Guarded CODE STATUS: Code Status: Full HOME HEALTH: Face to Face: I certify this patient is under my care and that I, or a nurse practitioner or physician's automotive parts counter assistant working with me, had a face to face encounter that meets the physician face to face encounter requirements with this patient on []. Medical Complications: Other (CANCER) Longterm For: Admin/Educate Injections, Assess Cardiopulm Status, Assess & Educate Safety RN For Eval/Treatment: Yes Physical Therapy For: Evalulation/Treatment Occupational Therapy For: Evaluation/Treatment Speech Language Pathology For: Evaluation/Treatment Home Health Aide For: Self-care FISCAL ASSISTANT For: Community Resources Pt Meets Homebound Status: Fatigue w/ amb. POST DISCHARGE ORDERS: Activity Instructions for Disc: Resume previous activity, Activity as tolerated Weight Bearing Status after Di: No restrictions Bathing Instructions: Shower-keep dressing dry DIET AFTER DISCHARGE: ADA Wound/Incision Care: Keep wound/cast CDI CHECKS AFTER DISCHARGE: Checks after discharge: Check blood press - daily, Check blood sugar, ac/hs TREATMENT/EQUIPMENT ORDERS: Adaptive Equipment Issued: None, Commode, Front wheeled walker Discharge Respiratory Equipmen: Oxygen CERTIFICATION STATEMENT: Certification Statement: Certification Statement: Based on the above finding, I certify that this patient is confined to the home and needs intermittent long-term care, physical therapy and/or speech therapy, or continues to need occupational therapy.~ This patient is under my care, and I have initiated the establishment of the plan of care.~ This patient will be followed by myself or a community physician who will periodically review the plan of care. Home Meds Active Scripts Levofloxacin (LEVAQUIN) 500 Mg Tablet, 1 TAB PO DAILY for UTI for 10 Days, #10 TAB 0 Refills Prov:REGINA TRAVIS MD 02/26/20 Trazodone Hcl (TRAZODONE HCL) 50 Mg Tablet, 1 TAB PO QHS for SLEEP, #30 TAB 1 Refill Prov:REGINA TRAVIS MD 02/26/20 Acetaminophen (TYLENOL) 325 Mg Tablet, 650 MG PO PRN Q4HRS PRN for TEMP OVER 100.4F OR MILD PAIN for 10 Days, #30 TAB Prov:REGINA TRAVIS MD 02/26/20 Ziprasidone Hcl (GEODON) 20 Mg Capsule, 1 CAP PO BID, #60 CAP 1 Refill Prov:ROE PHELPS MD 09/27/18 Triamterene/Hydrochlorothiazid (TRIAMTERENE-HCTZ 37.5-25 MG TB) 1 Each Tablet, 1 TAB PO DAILY for HTN for 30 Days, #30 TAB 2 Refills Prov:ADRIENNE BEAL MD 09/26/18 Hydralazine Hcl (HYDRALAZINE HCL) 25 Mg Tablet, 25 MG PO PRN TID PRN for HYPERTENSION, SEE COMMENTS for 30 Days, #90 TAB 2 Refills For SBP > 150mmHg take as needed 3 times per day Prov:ADRIENNE BEAL MD 07/21/18 Amlodipine Besylate (AMLODIPINE BESYLATE) 10 Mg Tablet, 10 MG PO DAILY for HTN for 30 Days, #30 TAB 2 Refills Prov:ADRIENNE BELA MD 07/21/18 Thiamine Mononitrate (VITAMIN B-1) 100 Mg Tablet, 100 MG PO DAILY for deficiency for 30 Days, #30 TAB 2 Refills Prov:ADRIENNE BEAL MD 07/21/18 Reported Medications Prochlorperazine Maleate (Compazine) 10 Mg Tablet, 1 TAB PO Q6HRS for N/V for 7 Days, #28 TAB 0 Refills 02/24/20 Pantoprazole Sodium (PROTONIX ) 40 Mg Tablet.dr, 40 MG PO DAILYAC for GERD, TAB 02/24/20 Multivitamin (GUMMI BEAR MULTIVITAMIN) 1 Each Tab.chew, 1 EACH PO DAILY for supplement, TAB.CHEW 02/01/20 Ferrous Sulfate (FERROUS SULFATE) 325 Mg Tablet, 1 TAB PO DAILY for supplement, #30 TAB 3 Refills 02/01/20 Levetiracetam (LEVETIRACETAM) 500 Mg Tab.er.24h, 1 TAB PO BID for seizures for 30 Days, #60 TAB 0 Refills 02/01/20 Hydralazine Hcl (HYDRALAZINE HCL) 25 Mg Tablet, 1 TAB PO TID for HTN, #90 TAB 5 Refills 02/01/20 [Vitamin D3] No Conflict Check, 25 MCG PO DAILY 02/01/20 Cyanocobalamin (Vitamin B-12) (Vitamin B12) 2,500 Mcg Tablet, 1 TAB PO DAILY for supplement for 30 Days, #30 TAB 0 Refills 02/01/20 Ranitidine Hcl (RANITIDINE HCL) 150 Mg Capsule, 1 CAP PO BID, #60 CAP 5 Refills 03/24/18 Albuterol Sulfate (PROAIR HFA INHALER) 8.5 Gm Hfa.aer.ad, 2 PUFF IH PRN Q4-6HRS, #1 INHALER 10/03/15 Discontinued Reported Medications Lorazepam (ATIVAN) 0.5 Mg Tablet, 0.5 MG PO PRN PRN for ANXIETY / AGITATION, TAB 03/08/16 REGINA TRAVIS MD Feb 26, 2020 12:55
[2020-02-26 15:40] VITALS: BP 102/66
--- NOTE | 2020-02-26 17:00 | NUR ---
Discharge instructions and belongings reviewed with patient, verbalized understanding. Patients sister Neri picked patient up and Eli with social work is to call Neri [phone] to discuss home health.
--- NOTE | 2020-02-28 14:56 | NUR ---
LATE NOTE NICOL was able to find Home health for pt. [facility] accepted pt. NICOL left voicemail for family.
== END 2020-02-26 17:04 | disposition home health service (06) | DRG 689 ==
LOC: ER 21:37 → 4 NORTH 02-24 00:21 → 5 NORTH 02-26 11:41
PROVIDERS: ADMIT Internal Medicine; ATTEND Internal Medicine
DX: N39.0 Urinary tract infection, site not specified (principal); G93.41 Metabolic encephalopathy; C18.9 Malignant neoplasm of colon, unspecified; N17.9 Acute kidney failure, unspecified; F31.5 Bipolar disorder, current episode depressed, severe, with psychotic features; C78.7 Secondary malignant neoplasm of liver and intrahepatic bile duct; M19.90 Unspecified osteoarthritis, unspecified site; K21.9 Gastro-esophageal reflux disease without esophagitis; F17.210 Nicotine dependence, cigarettes, uncomplicated; E11.9 Type 2 diabetes mellitus without complications; I10 Essential (primary) hypertension; E78.5 Hyperlipidemia, unspecified; J45.909 Unspecified asthma, uncomplicated; F99 Mental disorder, not otherwise specified; G40.909 Epilepsy, unspecified, not intractable, without status epilepticus; D70.9 Neutropenia, unspecified; Z90.710 Acquired absence of both cervix and uterus; Z90.49 Acquired absence of other specified parts of digestive tract; Z88.0 Allergy status to penicillin; Z88.8 Allergy status to other drugs, medicaments and biological substances; Z81.1 Family history of alcohol abuse and dependence
CPT/HCPCS: 36415; 71045; 80053; 80307; 81001; 83605; 83735; 84484; 84550; 85025; 87040; 87086; 93005; 96361; 96365; 99406; J1650; J1956; J7030; 97535-GO; 99285-25; G0378

== ENCOUNTER → 2020-02-27 | Outpatient (CLI) | payer OTHER ==
[2020-02-26 15:40] VITALS: BP 102/66
[~2020-02-27] MED LIST changes: +ACET325T9 PO; +PANT40TA77 PO; +PROC10TA57 PO; +TRAZ-118 PO
[2020-02-27 09:40] LABS: BASO % 1 % (0-3); EOS % 0 % (0-3); HEMATOCRIT 31.4 % (36.0-47.0); HEMOGLOBIN 10.3 g/dL (12.0-15.5); LYMPH # 1.4 x10^3/uL (1.0-4.8); LYMPH % 20 % (24-48); MEAN CORPUSCULAR HEMOGLOBIN 26 pg (25-35); MEAN CORPUSCULAR HGB CONC 33 g/dL (31-37); MEAN CORPUSCULAR VOLUME 80 fL (79-100); MONO # 1.5 x10^3/uL (0.0-1.1); MONO % 21 % (0-9); NEUT # 4.1 x10^3/uL (1.8-7.7); NEUT % 58 % (31-73); PLATELET COUNT 191 x10^3/uL (140-400); RED BLOOD COUNT 3.92 x10^6/uL (3.50-5.40); RED CELL DISTRIBUTION WIDTH 15.1 % (11.5-14.5)
[2020-02-27 09:48] LABS: CALCIUM 9.1 mg/dL (8.5-10.1); CREATININE 1.3 mg/dL (0.6-1.0); GFR 49.6; POTASSIUM 4.4 mmol/L (3.5-5.1)
== END ==
LOC: ONCLAB 08:31
PROVIDERS: ATTEND Internal Medicine Hematology & Oncology
DX: C18.2 Malignant neoplasm of ascending colon (principal)
CPT/HCPCS: 36415; 80048; 85025

== ENCOUNTER 2020-03-04 10:16 | Inpatient (IN) | payer OTHER ==
[~2020-03-04] VITALS: Ht 154.9 cm; Wt 46.7 kg
[2020-03-04] MEDS ORDERED: DEXTROSE 50% 25 GM / 50ML DISP.SYRIN. IV ONE (10:45)
[2020-03-04] MEDS ORDERED: CONTRAST GIVEN. MC PRN (10:45)
[2020-03-04] MEDS ORDERED: IOHEXOL 300 MG/ML 100ML VIAL. IV ONE (10:45)
--- NOTE | 2020-03-04 10:46 | PHYS DOC ---
Past Medical History Past Medical History: Arthritis, Cancer (stage IV colon), Hypertension, S eizure, UTI Additional Past Medical Histor: cocaine abuse, severe protein malnutrition. Past Surgical History: Cholecystectomy, Hysterectomy, Other Additional Past Surgical Histo: perforated ulcer Smoking Status: Current Every Day Smoker Alcohol Use: Heavy Drug Use: Cocaine General Adult EDM: Chief Complaint: ALTERED MENTAL STATUS HPI: HPI: 64-year-old female presents with altered mental status from cancer center. Patient is not here with family and unable to give us a plan for last known normal. I spoke with the PA to oncology clinic who did not know the last known normal either. Patient was found to have blood sugar of 68 prior to arrival and not following commands appropriately. Patient denies pain but unable to answer questions appropriately. History physical and review of systems are limited due to altered mental state Review of Systems: Review of Systems: Unobtainable due to altered mental status but patient denies pain Heart Score: Risk Factors: Risk Factors: DM, Current or recent (<one month) smoker, HTN, HLP, family history of CAD, obesity. Risk Scores: Score 0 - 3: 2.5% MACE over next 6 weeks - Discharge Home Score 4 - 6: 20.3% MACE over next 6 weeks - Admit for Clinical Observation Score 7 - 10: 72.7% MACE over next 6 weeks - Early Invasive Strategies Current Medications: Current Medications Medications (Trade) Dose Ordered Sig/Zee Start Time Stop Time Status Last Admin Dose Admin Info (CONTRAST GIVEN -- Rx MONITORING) 1 each PRN DAILY PRN 03/04/20 10:45 03/06/20 10:44 Iohexol (Omnipaque 300 Mg/ml) 60 ml 1X ONCE 03/04/20 10:45 03/04/20 10:46 Allergies: Allergies: Allergies Coded Allergies Type Severity Reaction Last Updated Verified Penicillins Allergy Intermediate N/V ITCH 03/30/18 Yes I S O L A T I O N *CONTACT* Allergy Unknown 03/29/18 Yes Physical Exam: PE: Constitutional: Well developed, well nourished, drowsy HENT: Normocephalic, atraumatic, bilateral external ears normal, no trismus nose normal. [] Eyes: PERRLA, no discharge. [] Neck: Normal range of motion, no tenderness, supple, no stridor. [] Cardiovascular:Heart rate regular rhythm, Lungs & Thorax: No respiratory distress Abdomen: No distention Skin: Warm, dry, no erythema, no rash. [] Back: No tenderness, no CVA tenderness. [] Extremities: No tenderness, no cyanosis, no clubbing, ROM intact, no edema. [] Neurologic: Drowsy, oriented x0, mumbles occasionally but does not make complete sentences. Does not follow most commands, appears to move all extremities Psychologic: Unable to assess due to altered mental status Current Patient Data: Labs: Laboratory Tests Test 03/04/20 10:42 03/04/20 10:50 03/04/20 11:41 03/04/20 13:34 White Blood Count 6.4 x10^3/uL Red Blood Count 3.85 x10^6/uL Hemoglobin 10.1 g/dL Hematocrit 31.2 % Mean Corpuscular Volume 81 fL Mean Corpuscular Hemoglobin 26 pg Mean Corpuscular Hemoglobin Concent 33 g/dL Red Cell Distribution Width 16.1 % Platelet Count 178 x10^3/uL Neutrophils (%) (Auto) 71 % Lymphocytes (%) (Auto) 16 % Monocytes (%) (Auto) 12 % Eosinophils (%) (Auto) 1 % Basophils (%) (Auto) 1 % Neutrophils # (Auto) 4.5 x10^3/uL Lymphocytes # (Auto) 1.0 x10^3/uL Monocytes # (Auto) 0.7 x10^3/uL Eosinophils # (Auto) 0.0 x10^3/uL Basophils # (Auto) 0.1 x10^3/uL Prothrombin Time 14.7 SEC Prothromb Time International Ratio 1.2 Activated Partial Thromboplast Time 37 SEC Urine Collection Type Unknown Urine Color Kim Urine Clarity Clear Urine pH 5.0 Urine Specific [place] 1.025 Urine Protein 30 mg/dL Urine Glucose (UA) Negative mg/dL Urine Ketones (Stick) Trace mg/dL Urine Blood Negative Urine Nitrite Negative Urine Bilirubin Small Urine Urobilinogen Dipstick 1.0 mg/dL Urine Leukocyte Esterase Negative Urine RBC 0 /HPF Urine WBC 1-4 /HPF Urine Squamous Epithelial Cells Mod /LPF Urine Amorphous Sediment Present /HPF Urine Bacteria 0 /HPF Urine Mucus Slight /LPF Sodium Level 140 mmol/L Potassium Level 4.0 mmol/L Chloride Level 104 mmol/L Carbon Dioxide Level 21 mmol/L Anion Gap 15 Blood Urea Nitrogen 24 mg/dL Creatinine 1.2 mg/dL Estimated GFR (Cockcroft-Gault) 54.4 BUN/Creatinine Ratio 20 Glucose Level 65 mg/dL Lactic Acid Level 1.7 mmol/L Calcium Level 9.2 mg/dL Total Bilirubin 0.7 mg/dL Gamma Glutamyl Transpeptidase 54 U/L Aspartate Amino Transf (AST/SGOT) 91 U/L Alanine Aminotransferase (ALT/SGPT) 36 U/L Alkaline Phosphatase 224 U/L Ammonia < 10 mcmol/L Troponin I Quantitative < 0.017 ng/mL Total Protein 6.4 g/dL Albumin 2.6 g/dL Albumin/Globulin Ratio 0.7 Vitamin B12 Level > 2000 pg/mL Thyroid Stimulating Hormone (TSH) 1.380 uIU/mL Free Thyroxine 1.94 ng/dL Urine Opiates Screen Pos Urine Methadone Screen Neg Urine Barbiturates Neg Urine Phencyclidine Screen Neg Urine Amphetamine/Methamphetamine Neg Urine Benzodiazepines Screen Neg Urine Cocaine Screen Neg Urine Cannabinoids Screen Neg Ethyl Alcohol Level < 10 mg/dL Urine Ethyl Alcohol Neg Glucose (Fingerstick) 177 mg/dL 84 mg/dL Current Medications Medications (Trade) Dose Ordered Sig/Zee Route PRN Reason Start Time Stop Time Status Last Admin Dose Admin Iohexol (Omnipaque 300 Mg/ml) 60 ml 1X ONCE IV 03/04/20 10:45 03/04/20 10:46 DC 03/04/20 10:59 Info (CONTRAST GIVEN -- Rx MONITORING) 1 each PRN DAILY PRN MC SEE COMMENTS 03/04/20 10:45 03/06/20 10:44 Dextrose (Dextrose 50%-Water Syringe) 25 gm 1X ONCE IV 03/04/20 10:45 03/04/20 10:46 DC 03/04/20 11:07 Ceftriaxone Sodium (Rocephin) 1 gm 1X ONCE IVP 03/04/20 12:00 03/04/20 12:01 DC 03/04/20 11:52 EKG: EKG: []EKG at 1027 shows normal sinus rhythm with left axis deviation and nonspecific ST changes and a rate of 68 Radiology/Procedures: Radiology/Procedures: [] [address] [place], [place] [id number] IMAGING REPORT Signed PATIENT: EBONI PACHECO ACCOUNT: [id number] : 1955 LOCATION: ER AGE: 64 SEX: F EXAM STATUS: REG ER ORD. PHYSICIAN: JARROD TALBERT MD REASON: ams PROCEDURE: PORTABLE CHEST 1V AP chest. HISTORY: Altered mental status AP view was taken of the chest. Heart is upper normal in size. The aorta is tortuous. There is atelectasis of the right middle lobe upper lung zones are clear. There is no definite effusion. PA and lateral views the chest could be of benefit. CT could be of benefit. IMPRESSION: 1. Right middle lobe atelectasis. 2. No other infiltrates. Electronically signed by: Eliezer Cordero MD (03/04/2020 11:55 AM) [id number] DICTATED and SIGNED BY: ELIEZER CORDERO MD DATE: 03/04/20 [address] [place], [place] [id number] IMAGING REPORT Signed PATIENT: EBONI PACHECO ACCOUNT: [id number] : 1955 LOCATION: ER AGE: 64 SEX: F EXAM STATUS: REG ER ORD. PHYSICIAN: JARROD TALBERT MD REASON: ams PROCEDURE: CT HEAD WO CONTRAST CT head without contrast PQRS statement: CT scans at this facility use dose reduction including either automated exposure control, iterative reconstructions, and /or weight based radiation dosing via mA and kV modification when appropriate to reduce radiation dose to as low as reasonably achievable. HISTORY: Altered mental status. FINDINGS: Comparison is made to CT head September 23, 2018. Prior right pterional and frontal craniotomy. Prior aneurysm clipping along the right supraclinoid internal carotid artery region and associated encephalomalacia of the right anterior inferior frontal lobe which is stable, there is streak artifact from aneurysm clip present may obscure subtle abnormalities. There is a chronic appearing left anterior frontal lobe 3 cm wedge-shaped white matter hypodensity new or increased in prominence in size from prior imaging in 2019 raising the possibility of an age-indeterminate ischemic or demyelinating white matter injury. No intracranial hemorrhage, mass or hydrocephalus. IMPRESSION: 1. 3 cm wedge-shaped left frontal lobe white matter hypodense lesion new from CT imaging in 2019 may represent an age-indeterminate ischemic or demyelinating injury. 2. 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 FOR INTERNAL CODING PURPOSES Critical result: Findings discussed with JARROD TALBERT at 03/04/2020 11:30 AM. RESULT CODE: (C) Electronically signed by: Chandni Fox MD (03/04/2020 11:33 AM) [id number] DICTATED and SIGNED BY: CHANDNI FOX MD DATE: 03/04/[address] [place] [address] IMAGING REPORT Signed PATIENT: EBONI PACHECO ACCOUNT: [id number] : 1955 LOCATION: [address] [place] [address] AGE: 64 SEX: F EXAM STATUS: ADM IN ORD. PHYSICIAN: JARROD TALBERT MD REASON: ams PROCEDURE: CT ANGIOGRAPHY HEAD AND NECK CT ANGIOGRAPHY HEAD AND NECK History:Reason: ams / Spl. Instructions: IV OMNI 300 60 MLS / History: Technique: After bolus of intravenous contrast, volumetric CT data acquisition was acquired of the head and neck. Multiplanar reconstruction images to include MIP and 3-D reconstruction images are submitted. Exposure: One or more of the following individualized dose reduction techniques were utilized for this examination: 1. Automated exposure control 2. Adjustment of the mA and/or kV according to patient size 3. Use of iterative reconstruction technique. Comparison: Noncontrast CT February 25, [address] head September 23, 2018 Any determination of stenosis is based on NASCET criteria. Head CTA: ICA: No stenosis, occlusion or aneurysm. Mild carotid siphon atheromatous calcification. MCA: High-grade stenosis of the right superior M2 branch with occlusion of right M3 branch in the region of the encephalomalacia. There is distal retrograde flow. Additional irregularity and narrowing of the right posterior MCA branches ADRIANNE: Prior anterior communicating artery aneurysm clipping. No evidence of residual filling of the aneurysm base. No stenosis or occlusion. 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 Basilar artery: No stenosis, occlusion or aneurysm. Distal vertebral arteries: No stenosis, occlusion or aneurysm. Postoperative changes right frontoparietal craniotomy for anterior communicating artery aneurysm clipping. Right anterior frontal lobe encephalomalacia. CT angiogram neck: Aortic arch: Minimal atheromatous plaque within the aortic arch. Common carotid arteries: No stenosis, occlusion or dissection. Internal carotid arteries: No stenosis, occlusion or dissection. External carotid arteries: Patent Vertebral arteries: No stenosis, occlusion or dissection. Tortuous bilateral vertebral arteries within the neck. Pulmonary emphysema. Enlarged multinodular thyroid, left greater the right. Right chest wall port. Secretions within the trachea. Bones: Multilevel cervical spondylosis most prominent C6-C7. Impression: 1. Multifocal severe narrowing of the right MCA branches with occlusion of the right superior M3 branch in the region of the right frontal lobe encephalomalacia. Recommend MRI to further evaluate for acute ischemic changes. 2. Postoperative changes anterior communicating artery aneurysm clipping. 3. Enlarged multinodular thyroid. FOR INTERNAL CODING PURPOSES Critical result: Findings discussed with JARROD TALBERT at 03/04/2020 1:43 PM. RESULT CODE: (C) Electronically signed by: aDniel Pacheco DO (03/04/2020 1:43 PM) [facility] DICTATED and SIGNED BY: DANIEL PACHECO DO DATE: 03/04/201342 Course & Med Decision Making: Course & Med Decision Making Pertinent Labs and Imaging studies reviewed. (See chart for details) [] Patient still altered with normalized blood sugar. Patient with unknown last known normal therefore she is not a TPA candidate. Patient will be admitted to for further evaluation and treatment. No TPA due to unknow Last known normal CTA w/ narrowing at m3 which isn't an area amenable to thrombectomy plus with area of encephalomalcia, area most likely isn't within 24 hours window. unsure of exact etiology for encephalopathy but will admit, neuro consult Dragon Disclaimer: [place] Disclaimer: This electronic medical record was generated, in whole or in part, using a voice recognition dictation system. Departure Departure Impression: Primary Impression: Altered mental status Disposition: ADMITTED INPATIENT Condition: STABLE Referrals: JOHN DORANTES MD (PCP) Justicifation of Admission Dx: Justifications for Admission: Justification of Admission Dx: Yes JARROD TALBERT MD Mar 04, 2020 10:46
[2020-03-04 11:07] LABS: BASO # 0.1 x10^3/uL (0.0-0.2); BASO % 1 % (0-3); EOS % 1 % (0-3); HEMATOCRIT 31.2 % (36.0-47.0); HEMOGLOBIN 10.1 g/dL (12.0-15.5); LYMPH % 16 % (24-48); MEAN CORPUSCULAR HEMOGLOBIN 26 pg (25-35); MEAN CORPUSCULAR HGB CONC 33 g/dL (31-37); MEAN CORPUSCULAR VOLUME 81 fL (79-100); MONO # 0.7 x10^3/uL (0.0-1.1); MONO % 12 % (0-9); NEUT # 4.5 x10^3/uL (1.8-7.7); NEUT % 71 % (31-73); PLATELET COUNT 178 x10^3/uL (140-400); RED BLOOD COUNT 3.85 x10^6/uL (3.50-5.40); RED CELL DISTRIBUTION WIDTH 16.1 % (11.5-14.5); WHITE BLOOD COUNT 6.4 x10^3/uL (4.0-11.0)
[2020-03-04 11:10] LABS: BILIRUBIN,URINE SMALL (NEG); CLARITY,URINE CLEAR; COLOR,URINE AMBER; NITRITE,URINE NEGATIVE (NEG); PROTEIN,URINE 30 mg/dL (NEG-TRACE)
[2020-03-04 11:15] LABS: PROTHROMBIN TIME PATIENT 14.7 SEC (11.7-14.0)
[2020-03-04 11:18] LABS: SQUAMOUS EPITHELIAL CELL,UR MOD /LPF
[2020-03-04 11:19] LABS: AMORPHOUS SEDIMENT,UR PRESENT /HPF; BACTERIA,URINE 0 /HPF (0-FEW); RBC,URINE 0 /HPF (0-2)
[2020-03-04 11:20] LABS: CALCIUM 9.2 mg/dL (8.5-10.1); CREATININE 1.2 mg/dL (0.6-1.0); GFR 54.4
[2020-03-04 11:26] LABS: ALBUMIN 2.6 g/dL (3.4-5.0); ALBUMIN/GLOBULIN RATIO 0.7 (1.0-1.7); TOTAL BILIRUBIN 0.7 mg/dL (0.2-1.0); TOTAL PROTEIN 6.4 g/dL (6.4-8.2)
--- NOTE | 2020-03-04 11:36 | RAD ---
CT head without contrast PQRS statement: CT scans at this facility use dose reduction including either automated exposure control, iterative reconstructions, and /or weight based radiation dosing via mA and kV modification when appropriate to reduce radiation dose to as low as reasonably achievable. HISTORY: Altered mental status. FINDINGS: Comparison is made to CT head September 23, 2018. Prior right pterional and frontal craniotomy. Prior aneurysm clipping along the right supraclinoid internal carotid artery region and associated encephalomalacia of the right anterior inferior frontal lobe which is stable, there is streak artifact from aneurysm clip present may obscure subtle abnormalities. There is a chronic appearing left anterior frontal lobe 3 cm wedge-shaped white matter hypodensity new or increased in prominence in size from prior imaging in 2019 raising the possibility of an age-indeterminate ischemic or demyelinating white matter injury. No intracranial hemorrhage, mass or hydrocephalus. IMPRESSION: 1. 3 cm wedge-shaped left frontal lobe white matter hypodense lesion new from CT imaging in 2019 may represent an age-indeterminate ischemic or demyelinating injury. 2. 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 FOR INTERNAL CODING PURPOSES Critical result: Findings discussed with JARROD TALBERT at 03/04/2020 11:30 AM. RESULT CODE: (C) Electronically signed by: Attila Fox MD (03/04/2020 11:33 AM) [id number]
--- NOTE | 2020-03-04 11:58 | RAD ---
AP chest. HISTORY: Altered mental status AP view was taken of the chest. Heart is upper normal in size. The aorta is tortuous. There is atelectasis of the right middle lobe upper lung zones are clear. There is no definite effusion. PA and lateral views the chest could be of benefit. CT could be of benefit. IMPRESSION: 1. Right middle lobe atelectasis. 2. No other infiltrates. Electronically signed by: Eliezer Cordero MD (03/04/2020 11:55 AM) [id number]
[2020-03-04] MEDS ORDERED: cefTRIAXone IV Push 1 GM VIAL. IVP ONE (12:00)
--- NOTE | 2020-03-04 12:04 | EKG ---
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
[2020-03-04] MEDS ORDERED: ONDANSETRON PF 4 MG/2 ML VIAL. IV PRN ×2 (12:15→12:45)
[2020-03-04 12:17] LABS: BARBITURATES NEG (NEG); BENZODIAZEPINES NEG (NEG); CANNABINOIDS NEG (NEG); COCAINE NEG (NEG); METHADONE NEG (NEG); OPIATES POS (NEG); PHENCYCLIDINE NEG (NEG)
[2020-03-04 12:24] LABS: AMPHETAMINE/METHAMPHETAMINE NEG (NEG)
[2020-03-04] MEDS ORDERED: hydrALAZINE 25 MG TABLET PO PRN (12:45)
[2020-03-04] MEDS ORDERED: guaiFENesin ORAL 200 MG/10 ML LIQUID. PO PRN (12:45)
[2020-03-04] MEDS: IV NORMAL SALINE 1000ML BAG 1,000 ML IV SCH ×3 (12:45→22:45)
[2020-03-04] MEDS ORDERED: ALBUTEROL SULFATE 2.5 MG/3 ML NEBU. NEB PRN (12:45)
[2020-03-04] MEDS ORDERED: DOCUSATE SODIUM 100 MG CAPSULE. PO PRN (12:45)
[2020-03-04] MEDS ORDERED: ACETAMINOPHEN 325 MG TABLET. PO PRN ×2 (12:45)
[2020-03-04] MEDS ORDERED: ZOLPIDEM 5 MG TABLET. PO PRN (12:45)
[2020-03-04] MEDS ORDERED: LORazepam 0.5 MG TABLET PO PRN (12:45)
[2020-03-04] MEDS ORDERED: ENOXAPARIN 40 MG/0.4 ML SYRINGE. SQ SCH (13:00)
[2020-03-04] MEDS: PROCHLORPERAZINE 5 MG TABLET. PO SCH ×2 (13:30→16:50)
--- NOTE | 2020-03-04 13:46 | RAD ---
CT ANGIOGRAPHY HEAD AND NECK History:Reason: ams / Spl. Instructions: IV OMNI 300 60 MLS / History: Technique: After bolus of intravenous contrast, volumetric CT data acquisition was acquired of the head and neck. Multiplanar reconstruction images to include MIP and 3-D reconstruction images are submitted. Exposure: One or more of the following individualized dose reduction techniques were utilized for this examination: 1. Automated exposure control 2. Adjustment of the mA and/or kV according to patient size 3. Use of iterative reconstruction technique. Comparison: Noncontrast CT February 25, [address] head September 23, 2018 Any determination of stenosis is based on NASCET criteria. Head CTA: ICA: No stenosis, occlusion or aneurysm. Mild carotid siphon atheromatous calcification. MCA: High-grade stenosis of the right superior M2 branch with occlusion of right M3 branch in the region of the encephalomalacia. There is distal retrograde flow. Additional irregularity and narrowing of the right posterior MCA branches ADRIANNE: Prior anterior communicating artery aneurysm clipping. No evidence of residual filling of the aneurysm base. No stenosis or occlusion. 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 Basilar artery: No stenosis, occlusion or aneurysm. Distal vertebral arteries: No stenosis, occlusion or aneurysm. Postoperative changes right frontoparietal craniotomy for anterior communicating artery aneurysm clipping. Right anterior frontal lobe encephalomalacia. CT angiogram neck: Aortic arch: Minimal atheromatous plaque within the aortic arch. Common carotid arteries: No stenosis, occlusion or dissection. Internal carotid arteries: No stenosis, occlusion or dissection. External carotid arteries: Patent Vertebral arteries: No stenosis, occlusion or dissection. Tortuous bilateral vertebral arteries within the neck. Pulmonary emphysema. Enlarged multinodular thyroid, left greater the right. Right chest wall port. Secretions within the trachea. Bones: Multilevel cervical spondylosis most prominent C6-C7. Impression: 1. Multifocal severe narrowing of the right MCA branches with occlusion of the right superior M3 branch in the region of the right frontal lobe encephalomalacia. Recommend MRI to further evaluate for acute ischemic changes. 2. Postoperative changes anterior communicating artery aneurysm clipping. 3. Enlarged multinodular thyroid. FOR INTERNAL CODING PURPOSES Critical result: Findings discussed with JARROD TALBERT at 03/04/2020 1:43 PM. RESULT CODE: (C) Electronically signed by: Daniel Cheek DO (03/04/2020 1:43 PM) [facility]
[2020-03-04] MEDS ORDERED: ASPIRIN RECTAL 300 MG SUPP. PR ONE (14:00)
[2020-03-04] MEDS: amLODIPine BESYLATE 10 MG TABLET PO SCH (14:00)
[2020-03-04] MEDS: CHOLECALCIFEROL (VITAMIN D3) 1,000 UNIT TABLET PO SCH (14:00)
[2020-03-04] MEDS: FAMOTIDINE 20 MG TABLET. PO SCH (14:00)
[2020-03-04] MEDS: hydrALAZINE 25 MG TABLET PO SCH ×2 (14:00→21:00)
--- NOTE | 2020-03-04 14:09 | NUR ---
Patient has arrived to room 506. Daughter in to visit. Call light within easy reach. Patient non-verbal at this time., does appear to watch tv screen.
--- NOTE | 2020-03-04 14:37 | PDOC1 ---
History and Physical Date of Admission Date of Admission 03/04/2020 Identification/Chief Complaint Chief Complaint Altered mental status Source Source: Chart review, Unable to obtain due to (Encephalopathy) History of Present Illness History of Present Illness Patient is a 64-year-old female with past medical history of stage IV colon cancer who was visiting with her oncologist when she was noted to be quite lethargic. According to conversation with her oncologist patient even had food that have been in her oral cavity for an unknown time. Family is unable to provide any details according to the oncologist and the ER physician who has tried to get details of her history nevertheless this has been quite unsuccessful. Family is not available at the time of my visit at bedside. According to the family they do not know when she was last seen "normal". Patient upon clinical grounds is severely malnourished with protein calorie malnutrition most likely given her wasting appearance. Patient is unable to follow certain commands I think she selectively follows them at this time. She was able to squeeze my right hand she is moving her lower extremities and does not seem to have sensory deficits. Unknown if the patient is right-handed or left-handed. Currently she is undergoing chemotherapy with FOLFOX. She was found to be hypoglycemic at the beginning of her ER visit after glucose administration her glycemia came up to 175 but very little result on her mentation was achieved. We have been asked to admit the patient for further evaluation and treatment Past Medical History Cardiovascular: HTN Pulmonary: Asthma CENTRAL NERVOUS SYSTEM: Seizure, Other GI: GERD Endocrine: Diabetes Past Surgical History Past Surgical History: Other Family History Family History: Alcohol Abuse, No Significant Social History Smoke: No ALCOHOL: none Drugs: None, Cocaine Current Medications Current Medications Current Medications Medications (Trade) Dose Ordered Sig/Zee Start Time Stop Time Status Last Admin Dose Admin Acetaminophen (Tylenol) 650 mg PRN Q4HRS PRN 03/04/20 12:45 UNV Albuterol Sulfate (Ventolin Neb Soln) 2.5 mg PRN Q4HRS PRN 03/04/20 12:45 Amlodipine Besylate (Norvasc) 10 mg DAILY 03/04/20 14:00 Aspirin (Aspirin Rectal Supp) 300 mg 1X ONCE 03/04/20 14:00 03/04/20 14:01 DC Ceftriaxone Sodium (Rocephin) 1 gm 1X ONCE 03/04/20 12:00 03/04/20 12:01 DC 03/04/20 11:52 1 GM Cyanocobalamin (Vitamin B-12) 2,500 mcg DAILY 03/05/20 09:00 Dextrose (Dextrose 50%-Water Syringe) 25 gm 1X ONCE 03/04/20 10:45 03/04/20 10:46 DC 03/04/20 11:07 25 GM Docusate Sodium (Colace) 100 mg PRN BID PRN 03/04/20 12:45 Enoxaparin Sodium (Lovenox 40mg Syringe) 30 mg Q24H 03/04/20 13:00 Famotidine (Pepcid) 20 mg DAILY 03/04/20 14:00 Ferrous Sulfate (Feosol) 325 mg DAILY08 03/05/20 08:00 Guaifenesin (Robitussin) 200 mg PRN Q4HRS PRN 03/04/20 12:45 Hydralazine HCl (Apresoline) 25 mg PRN TID PRN 03/04/20 12:45 Info (CONTRAST GIVEN -- Rx MONITORING) 1 each PRN DAILY PRN 03/04/20 10:45 03/06/20 10:44 Iohexol (Omnipaque 300 Mg/ml) 60 ml 1X ONCE 03/04/20 10:45 03/04/20 10:46 DC 03/04/20 10:59 60 ML Levetiracetam (Keppra) 500 mg BID 03/04/20 21:00 Levofloxacin (Levaquin) 500 mg DAILY 03/05/20 09:00 Lorazepam (Ativan) 0.5 mg PRN Q4HRS PRN 03/04/20 12:45 Multivitamins (Thera M Plus) 1 tab DAILY 03/05/20 09:00 Ondansetron HCl (Zofran) 4 mg PRN Q4HRS PRN 03/04/20 12:45 Pantoprazole Sodium (Protonix) 40 mg DAILYAC 03/05/20 07:30 Prochlorperazine Maleate (Compazine) 10 mg Q6HRS 03/04/20 13:30 Sodium Chloride 1,000 ml @ 100 mls/hr Q10H 03/04/20 12:45 Thiamine Mononitrate (Vitamin B-1) 100 mg DAILY 03/05/20 09:00 Trazodone HCl (Desyrel) 50 mg QHS 03/04/20 21:00 Triamterene/HCTZ (Maxzide 37.5/ 25mg) 1 tab DAILY 03/05/20 09:00 Vitamin D (Vitamin D3) 1,000 unit DAILY 03/04/20 14:00 Ziprasidone (Geodon) 20 mg BID 03/04/20 21:00 Zolpidem Tartrate (Ambien) 5 mg PRN QHS PRN 03/04/20 12:45 Allergies Allergies Allergies Coded Allergies Type Severity Reaction Last Updated Verified Penicillins Allergy Intermediate N/V ITCH 03/30/18 Yes I S O L A T I O N *CONTACT* Allergy Unknown 03/29/18 Yes ROS Review of System Unable to assess secondary to encephalopathy Physical Exam Physical Exam Gen.: Cachectic in no apparent distress Head: Normal shape atraumatic Eyes: Pupils equal reactive to light and accommodation, normal conjunctivae and lids Ears: Normal shape Nose: Normal shape no trauma Mouth: No exudates of the back of throat no thrush no lesions Neck: Supple no JVD no carotid bruit or lymphadenopathy no thyromegaly Chest: Lungs clear to auscultation with poor inspiratory effort no crackles rales or rhonchi Cardiovascular: S1-S2 regular rhythm no murmurs gallops or rubs Abdomen: Bowel sounds hypoactive soft nontender no hepatosplenomegaly appreciated sign Extremities: No clubbing no cyanosis no edema peripheral pulses palpated bilaterally Neurological: Somnolent, cranial nerves unable to assess fully since patient is not cooperating. She does not have evidence of facial droop she is nonverbal at the time of my visit, no motor or sensory deficits appreciated Psych: Not able to be assessed Vitals Vitals Vital Signs Date Time Temp Pulse Resp B/P (MAP) Pulse Ox O2 Delivery O2 Flow Rate FiO2 03/04/20 10:20 98.9 70 16 126/77 (93) 97 Room Air 98.9 Labs Labs Laboratory Tests Test 03/04/20 10:42 03/04/20 10:50 03/04/20 11:41 03/04/20 13:34 White Blood Count 6.4 x10^3/uL (4.0-11.0) Red Blood Count 3.85 x10^6/uL (3.50-5.40) Hemoglobin 10.1 g/dL (12.0-15.5) Hematocrit 31.2 % (36.0-47.0) Mean Corpuscular Volume 81 fL (79-100) Mean Corpuscular Hemoglobin 26 pg (25-35) Mean Corpuscular Hemoglobin Concent 33 g/dL (31-37) Red Cell Distribution Width 16.1 % (11.5-14.5) Platelet Count 178 x10^3/uL (140-400) Neutrophils (%) (Auto) 71 % (31-73) Lymphocytes (%) (Auto) 16 % (24-48) Monocytes (%) (Auto) 12 % (0-9) Eosinophils (%) (Auto) 1 % (0-3) Basophils (%) (Auto) 1 % (0-3) Neutrophils # (Auto) 4.5 x10^3/uL (1.8-7.7) Lymphocytes # (Auto) 1.0 x10^3/uL (1.0-4.8) Monocytes # (Auto) 0.7 x10^3/uL (0.0-1.1) Eosinophils # (Auto) 0.0 x10^3/uL (0.0-0.7) Basophils # (Auto) 0.1 x10^3/uL (0.0-0.2) Prothrombin Time 14.7 SEC (11.7-14.0) Prothromb Time International Ratio 1.2 (0.8-1.1) Activated Partial Thromboplast Time 37 SEC (24-38) Urine Collection Type Unknown Urine Color Kim Urine Clarity Clear Urine pH 5.0 (<5.0-8.0) Urine Specific [place] 1.025 (1.000-1.030) Urine Protein 30 mg/dL (NEG-TRACE) Urine Glucose (UA) Negative mg/dL (NEG) Urine Ketones (Stick) Trace mg/dL (NEG) Urine Blood Negative (NEG) Urine Nitrite Negative (NEG) Urine Bilirubin Small (NEG) Urine Urobilinogen Dipstick 1.0 mg/dL (0.2 mg/dL) Urine Leukocyte Esterase Negative (NEG) Urine RBC 0 /HPF (0-2) Urine WBC 1-4 /HPF (0-4) Urine Squamous Epithelial Cells Mod /LPF Urine Amorphous Sediment Present /HPF Urine Bacteria 0 /HPF (0-FEW) Urine Mucus Slight /LPF Sodium Level 140 mmol/L (136-145) Potassium Level 4.0 mmol/L (3.5-5.1) Chloride Level 104 mmol/L (98-107) Carbon Dioxide Level 21 mmol/L (21-32) Anion Gap 15 (6-14) Blood Urea Nitrogen 24 mg/dL (7-20) Creatinine 1.2 mg/dL (0.6-1.0) Estimated GFR (Cockcroft-Gault) 54.4 BUN/Creatinine Ratio 20 (6-20) Glucose Level 65 mg/dL (70-99) Lactic Acid Level 1.7 mmol/L (0.4-2.0) Calcium Level 9.2 mg/dL (8.5-10.1) Total Bilirubin 0.7 mg/dL (0.2-1.0) Aspartate Amino Transf (AST/SGOT) 91 U/L (15-37) Alanine Aminotransferase (ALT/SGPT) 36 U/L (14-59) Alkaline Phosphatase 224 U/L (46-116) Ammonia < 10 mcmol/L (11-34) Troponin I Quantitative < 0.017 ng/mL (0.000-0.055) Total Protein 6.4 g/dL (6.4-8.2) Albumin 2.6 g/dL (3.4-5.0) Albumin/Globulin Ratio 0.7 (1.0-1.7) Urine Opiates Screen Pos (NEG) Urine Methadone Screen Neg (NEG) Urine Barbiturates Neg (NEG) Urine Phencyclidine Screen Neg (NEG) Urine Amphetamine/Methamphetamine Neg (NEG) Urine Benzodiazepines Screen Neg (NEG) Urine Cocaine Screen Neg (NEG) Urine Cannabinoids Screen Neg (NEG) Ethyl Alcohol Level < 10 mg/dL (0-10) Urine Ethyl Alcohol Neg (NEG) Glucose (Fingerstick) 177 mg/dL (70-99) 84 mg/dL (70-99) Laboratory Tests Test 03/04/20 10:42 03/04/20 10:50 03/04/20 11:41 03/04/20 13:34 White Blood Count 6.4 x10^3/uL (4.0-11.0) Red Blood Count 3.85 x10^6/uL (3.50-5.40) Hemoglobin 10.1 g/dL (12.0-15.5) Hematocrit 31.2 % (36.0-47.0) Mean Corpuscular Volume 81 fL (79-100) Mean Corpuscular Hemoglobin 26 pg (25-35) Mean Corpuscular Hemoglobin Concent 33 g/dL (31-37) Red Cell Distribution Width 16.1 % (11.5-14.5) Platelet Count 178 x10^3/uL (140-400) Neutrophils (%) (Auto) 71 % (31-73) Lymphocytes (%) (Auto) 16 % (24-48) Monocytes (%) (Auto) 12 % (0-9) Eosinophils (%) (Auto) 1 % (0-3) Basophils (%) (Auto) 1 % (0-3) Neutrophils # (Auto) 4.5 x10^3/uL (1.8-7.7) Lymphocytes # (Auto) 1.0 x10^3/uL (1.0-4.8) Monocytes # (Auto) 0.7 x10^3/uL (0.0-1.1) Eosinophils # (Auto) 0.0 x10^3/uL (0.0-0.7) Basophils # (Auto) 0.1 x10^3/uL (0.0-0.2) Prothrombin Time 14.7 SEC (11.7-14.0) Prothromb Time International Ratio 1.2 (0.8-1.1) Activated Partial Thromboplast Time 37 SEC (24-38) Urine Collection Type Unknown Urine Color Kim Urine Clarity Clear Urine pH 5.0 (<5.0-8.0) Urine Specific [place] 1.025 (1.000-1.030) Urine Protein 30 mg/dL (NEG-TRACE) Urine Glucose (UA) Negative mg/dL (NEG) Urine Ketones (Stick) Trace mg/dL (NEG) Urine Blood Negative (NEG) Urine Nitrite Negative (NEG) Urine Bilirubin Small (NEG) Urine Urobilinogen Dipstick 1.0 mg/dL (0.2 mg/dL) Urine Leukocyte Esterase Negative (NEG) Urine RBC 0 /HPF (0-2) Urine WBC 1-4 /HPF (0-4) Urine Squamous Epithelial Cells Mod /LPF Urine Amorphous Sediment Present /HPF Urine Bacteria 0 /HPF (0-FEW) Urine Mucus Slight /LPF Sodium Level 140 mmol/L (136-145) Potassium Level 4.0 mmol/L (3.5-5.1) Chloride Level 104 mmol/L (98-107) Carbon Dioxide Level 21 mmol/L (21-32) Anion Gap 15 (6-14) Blood Urea Nitrogen 24 mg/dL (7-20) Creatinine 1.2 mg/dL (0.6-1.0) Estimated GFR (Cockcroft-Gault) 54.4 BUN/Creatinine Ratio 20 (6-20) Glucose Level 65 mg/dL (70-99) Lactic Acid Level 1.7 mmol/L (0.4-2.0) Calcium Level 9.2 mg/dL (8.5-10.1) Total Bilirubin 0.7 mg/dL (0.2-1.0) Aspartate Amino Transf (AST/SGOT) 91 U/L (15-37) Alanine Aminotransferase (ALT/SGPT) 36 U/L (14-59) Alkaline Phosphatase 224 U/L (46-116) Ammonia < 10 mcmol/L (11-34) Troponin I Quantitative < 0.017 ng/mL (0.000-0.055) Total Protein 6.4 g/dL (6.4-8.2) Albumin 2.6 g/dL (3.4-5.0) Albumin/Globulin Ratio 0.7 (1.0-1.7) Urine Opiates Screen Pos (NEG) Urine Methadone Screen Neg (NEG) Urine Barbiturates Neg (NEG) Urine Phencyclidine Screen Neg (NEG) Urine Amphetamine/Methamphetamine Neg (NEG) Urine Benzodiazepines Screen Neg (NEG) Urine Cocaine Screen Neg (NEG) Urine Cannabinoids Screen Neg (NEG) Ethyl Alcohol Level < 10 mg/dL (0-10) Urine Ethyl Alcohol Neg (NEG) Glucose (Fingerstick) 177 mg/dL (70-99) 84 mg/dL (70-99) VTE Prophylaxis Ordered VTE Prophylaxis Devices: No VTE Pharmacological Prophylaxi: Yes Assessment/Plan Assessment/Plan Metabolic encephalopathy most likely History of colon cancer stage IV History of essential hypertension History of seizure disorder as per medical record History of cocaine abuse Severe protein calorie malnutrition most likely malignancy associated cachexia History of alcohol abuse as well currently does not seem to be drinking Plan We will order B12 levels We will order a GGT We will order UDP We will continue to follow glycemia closely Resume home medications once available for review Neurology consultation has been requested CT of the head reviewed and found noncontributory DVT prophylaxis with Lovenox adjusted for renal function Further recommendations based on the clinical course Justicifation of Admission Dx: Justifications for Admission: Justification of Admission Dx: Yes DALIA KING MD Mar 04, 2020 14:37
[2020-03-04 15:00] VITALS: BP 118/67
[2020-03-04] MEDS ORDERED: C.DIFF MED SCREEN BY RX. MC ONE (15:45)
[2020-03-04 17:56] LABS: FREE T4 1.94 ng/dL (0.76-1.46); THYROID STIM HORMONE (TSH) 1.38 uIU/mL (0.358-3.74)
[2020-03-04] MEDS ORDERED: levETIRAcetam 1,000 MG in IV DEXTROSE 5% 100ML 100 ML IV ONE (18:00)
[2020-03-04 19:00] VITALS: BP 103/68
--- NOTE | 2020-03-04 19:23 | CONS ---
DATE OF CONSULTATION: 03/04/2020 REFERRING PHYSICIAN: Mateo Luna MD REASON FOR CONSULTATION: Marked decline in consciousness with stage 4 colon cancer. She also is having acute seizures. HISTORY OF PRESENT ILLNESS: The patient is a 64-year-old woman who has stage 4 colon cancer. Her oncologist has been using chemotherapy with FOLFOX. She was recently admitted to [facility] due to generalized weakness on 02/24/2020. She was dismissed only to be readmitted today. She has been encephalopathic with food in her oral cavity for an unknown period of time. The family was not available for questioning, the patient is not a reliable historian to give any information. The patient states she does have a seizure disorder and has been maintained on Keppra. It is not clear if she has been taking her medications regularly. There has been concern about her being severely malnourished. She does not complain of pain or headache. She is quite lethargic, but is able to alert and follow a few commands. In the Emergency Room, she did have a low glucose and was given glucose administration, but it did not improve her mentation. PAST MEDICAL HISTORY: 1. Hypertension. 2. Asthma. 3. Seizures. 4. Gastroesophageal reflux disease. 5. Stage 4 colon cancer. 6. History of aneurysmal clipping. 7. History of cocaine abuse. 8. Severe protein malnutrition. 9. Cholecystectomy. 10. Hysterectomy. 11. Perforated ulcer. 12. Tobacco abuse. 13. Alcohol abuse. ALLERGIES: PENICILLINS. MEDICATIONS PRIOR TO ADMISSION: Tylenol as needed, Albuterol metered dose inhaler as needed, amlodipine 10 mg, vitamin B12 daily, iron sulfate 325 mg, hydralazine 25 mg 3 times per day, levetiracetam 500 mg twice per day, levofloxacin 500 mg daily for 10 days, gummy bear multivitamins, pantoprazole 40 mg, prochlorperazine as needed, ranitidine 150 mg twice per day, thiamine mononitrate 100 mg, trazodone 50 mg, triamterene/hydrochlorothiazide, Geodon 20 mg twice per day and vitamin D3. The compliance with her regimen is unknown. FAMILY HISTORY: There is alcohol abuse. SOCIAL HISTORY: She smokes less than a pack a day. She is a heavy alcohol consumer. She has a history of cocaine. REVIEW OF SYSTEMS: Not obtainable from the patient as she is not a reliable historian. She denies pain or headache. She feels fatigued. PHYSICAL EXAMINATION: VITAL SIGNS: The blood pressure was 118/67, pulse 69, respirations 18 and temperature 98.1 degrees axillary. Oximetry was 97% on room air. Her weight was 44.5 kilograms, height 61 inches with a calculated body mass index of 18.5. GENERAL: She was lying in the bed with her eyes half open. If unstimulated, she would close her eyes. If she was stimulated, she would open them up more widely for a brief period of time. She is able to respond to questions, but it was delayed and very-very soft. She could confirm her name. She was not well oriented. She appeared well groomed and undernourished. NEUROLOGIC: Examination of the cranial nerves revealed visual campuzano appeared intact. Extraocular movements were intact. The face was conjugate. She did have left facial twitching involving mostly her lips, not her eye. At times, her eyes deviated strongly to the left. Facial sensation was intact. Muscles of mastication appeared symmetric. She was not able to cooperate very well in depth cranial nerve testing. Pupils were 3 mm and reactive. Eye closure was powerful bilaterally. She would not cooperate for funduscopic exam. Muscle bulk was diminished. Tone was not spastic or rigid. When held up in the air, she seemed to do less well with the left arm than the right. When held in the air, the legs would both fall down quickly. She had less movement of the left leg than the right. Reflexes were brisk in the upper extremities and knees, diminished at the ankles. Toes were not upgoing. Coordination testing with [id number] was performed with the right arm, but she did not do it with the left. On the right, she did not have ataxia. She was too weak to do coordination testing with her legs. She really could not raise either leg off the bed. Sensory exam was intact to nail bed pressure bilaterally. Plantar stimulation provoked her to withdrawal her feet slightly. Gait was not testable. Other coordination testing was not possible. NECK: Auscultation of the carotid arteries did not reveal a bruit. HEART: Rhythm was regular without a murmur. EXTREMITIES: Peripheral pulses were symmetric in the hands and feet. There was no edema or cyanosis. LABORATORY RESULTS: CBC was performed 03/04/2020 revealing a normal white blood cell count and platelet count. Hemoglobin was 10.1, hematocrit was 31.2. Chemistries were performed on 03/04/2020. Electrolytes were normal. BUN was 24 and creatinine 1.2 with a GFR that calculated at 54.4. Glucose was low at 65. Calcium was normal with total protein being normal, but albumin being low at 2.6. SGOT was elevated to 91. Alkaline phosphatase elevated to 224. Troponin was not elevated. Follow up glucose were not low. Lactic acid was not elevated. GGT was not elevated. Ammonia was less than 10. Urine drug screen was positive for opiates. It did not reveal alcohol. Coagulation studies revealed a PT/INR of 1.2 and PTT of 37. DIAGNOSTIC RESULTS: Chest x-ray revealed right middle lobe atelectasis, but no infiltrates. CT scan of the brain was performed without contrast on 03/04/2020. This revealed an old 3 cm wedge-shaped left frontal lobe white matter hypodense lesion, new from 2019, may represent stroke or demyelination. There was a prior right supraclinoid aneurysmal clipping and chronic encephalomalacia of the right lobe. CT angiogram of the head and neck revealed postoperative changes of the right frontoparietal craniotomy for anterior communicating artery aneurysmal clipping. The right anterior frontal lobe had encephalomalacia. There was multifocal narrowing of the right MCA branches with occlusion of the right superior M3 branch in the region of the right frontal lobe encephalomalacia. There are postoperative changes of the anterior communicating artery aneurysmal clipping. There was an enlarged multinodular thyroid. IMPRESSION: The patient is a 64-year-old woman with stage 4 lung cancer who was admitted on 02/22/2020 for general fatigue and encephalopathy and has returned with worsening encephalopathy. She has previously had an aneurysm and clipping with some encephalomalacia. I do see evidence that she may be experiencing focal seizure as I am seeing twitching of the left face as well as left eye deviation. She also has a left hemiparesis, but it is not clear if this is new or old. She is not able to provide this sort of critical information. I am concerned there may be further stroke or possibly tumor that we are not identifying. It is not clear if she has been taking her medicines regularly with this encephalopathy. RECOMMENDATIONS: I will give 1000 mg of intravenous Keppra now and then initiate the Keppra 500 mg IV every 12 hours to make sure it is getting in her system. I will discontinue the oral Keppra for the time being. We will see if we can gain control over the seizures. I will order an MRI brain with and without contrast. She has apparently had MRIs even after this aneurysmal clipping as I see evidence for it in 2018 in our prior records. She has had blood work to look for an encephalopathic process, which has not been revealing. We can also see if she has had recent B12 and thyroid levels measured and if not, I will order these. I think we need some information from the oncologist to know the overall prognosis with this malignancy. If the prognosis is poor, then it may be appropriate to consult hospice for the situation. SHAUNA LOPEZ MD DR: MALATHI/syed JOB#: [id number] / [id number] MADY Morillo MD
[2020-03-04] MEDS: ZIPRASIDONE 20 MG CAPSULE PO SCH (21:00)
[2020-03-04] MEDS: traZODone 50 MG TABLET. PO SCH (21:00)
[2020-03-04] MEDS ORDERED: levETIRAcetam 500 MG TABLET PO SCH (21:00)
[2020-03-04 23:00] VITALS: BP 123/74
--- NOTE | 2020-03-04 23:23 | NUR ---
Patient remains non-verbal, very drowsy, meds held until patient more awake and alert.
[2020-03-05] MEDS: levETIRAcetam 500 MG in IV DEXTROSE 5% 100ML 100 ML IV SCH ×3 (01:21→20:48)
[2020-03-05 03:00] VITALS: BP 113/70
[2020-03-05] MEDS: PROCHLORPERAZINE 5 MG TABLET. PO SCH ×6 (06:00→20:51)
[2020-03-05] MEDS: IV NORMAL SALINE 1000ML BAG 1,000 ML IV SCH ×2 (06:04→08:45)
[2020-03-05] MEDS ORDERED: IV DEXTROSE 5% 250 ML IV ONE (07:20)
[2020-03-05] MEDS ORDERED: DEXTROSE 50% 25 GM / 50ML DISP.SYRIN. IV ONE ×2 (07:22→07:30)
[2020-03-05] MEDS: PANTOPRAZOLE 40 MG TABLET.DR. PO SCH (07:30)
[2020-03-05 07:57] VITALS: BP 118/75
[2020-03-05] MEDS: FERROUS SULFATE 325 MG TABLET. PO SCH (08:00)
[2020-03-05] MEDS: hydrALAZINE 25 MG TABLET PO SCH ×3 (08:02→20:48)
[2020-03-05] MEDS: ZIPRASIDONE 20 MG CAPSULE PO SCH ×2 (08:02→20:48)
[2020-03-05] MEDS: MULTIVITAMIN with MINERAL TABLET. PO SCH (08:03)
[2020-03-05] MEDS: TRIAMTERENE/HCTZ 37.5/25MG TABLET. PO SCH (08:03)
[2020-03-05] MEDS: amLODIPine BESYLATE 10 MG TABLET PO SCH (08:03)
[2020-03-05] MEDS: FAMOTIDINE 20 MG TABLET. PO SCH (08:03)
[2020-03-05] MEDS: CHOLECALCIFEROL (VITAMIN D3) 1,000 UNIT TABLET PO SCH (08:04)
[2020-03-05] MEDS: CYANOCOBALAMIN (VITAMIN B-12) 1,000 MCG TABLET. PO SCH (08:04)
[2020-03-05] MEDS: THIAMINE 100 MG TABLET. PO SCH (08:04)
[2020-03-05] MEDS: IV DEXTROSE 5 %-0.45 % NACL 1,000 ML IV SCH ×2 (08:51→21:35)
--- NOTE | 2020-03-05 10:28 | NUR ---
SW following. Discussed with RN, pt from home with mother, plan is for pt to discharge home with sister when ready. PT has hx of brain aneurisms, has cancer with mets to liver. Pt's sister, Anne Marie is out of town until Tuesday. Neuro consulted. SW will continue to follow.
[2020-03-05 11:00] VITALS: BP 141/86
--- NOTE | 2020-03-05 13:04 | PDOC ---
PROGRESS NOTES Chief Complaint Chief Complaint acute Metabolic encephalopathy, or post-ictal on possible chronic , possible brain mets, seizure disorder, acute seizure History of colon cancer stage IV History of essential hypertension History of cocaine abuse Severe protein calorie malnutrition most likely malignancy associated cachexia History of alcohol abuse as well currently does not seem to be drinking History of Present Illness History of Present Illness prior admit here in september for similar consider hospice pt and ot and speech hx of poor sefl care prior Vitals Vitals Vital Signs Date Time Temp Pulse Resp B/P (MAP) Pulse Ox O2 Delivery O2 Flow Rate FiO2 03/05/20 11:00 98.0 74 16 141/86 (104) 98 Room Air 98.0 Physical Exam Lungs: Clear Labs LABS Laboratory Tests Test 03/04/20 13:34 03/05/20 07:17 03/05/20 07:55 03/05/20 08:25 Glucose (Fingerstick) 84 mg/dL (70-99) 57 mg/dL (70-99) 193 mg/dL (70-99) Glucose Level 181 mg/dL (70-99) Test 03/05/20 11:58 Glucose (Fingerstick) 103 mg/dL (70-99) Comment Review of Relevant I have reviewed the following items remi (where applicable) has been applied. Labs Laboratory Tests Test 03/04/20 10:42 03/04/20 10:50 03/04/20 11:41 03/04/20 13:34 White Blood Count 6.4 x10^3/uL (4.0-11.0) Red Blood Count 3.85 x10^6/uL (3.50-5.40) Hemoglobin 10.1 g/dL (12.0-15.5) Hematocrit 31.2 % (36.0-47.0) Mean Corpuscular Volume 81 fL (79-100) Mean Corpuscular Hemoglobin 26 pg (25-35) Mean Corpuscular Hemoglobin Concent 33 g/dL (31-37) Red Cell Distribution Width 16.1 % (11.5-14.5) Platelet Count 178 x10^3/uL (140-400) Neutrophils (%) (Auto) 71 % (31-73) Lymphocytes (%) (Auto) 16 % (24-48) Monocytes (%) (Auto) 12 % (0-9) Eosinophils (%) (Auto) 1 % (0-3) Basophils (%) (Auto) 1 % (0-3) Neutrophils # (Auto) 4.5 x10^3/uL (1.8-7.7) Lymphocytes # (Auto) 1.0 x10^3/uL (1.0-4.8) Monocytes # (Auto) 0.7 x10^3/uL (0.0-1.1) Eosinophils # (Auto) 0.0 x10^3/uL (0.0-0.7) Basophils # (Auto) 0.1 x10^3/uL (0.0-0.2) Prothrombin Time 14.7 SEC (11.7-14.0) Prothromb Time International Ratio 1.2 (0.8-1.1) Activated Partial Thromboplast Time 37 SEC (24-38) Urine Collection Type Unknown Urine Color Kim Urine Clarity Clear Urine pH 5.0 (<5.0-8.0) Urine Specific [place] 1.025 (1.000-1.030) Urine Protein 30 mg/dL (NEG-TRACE) Urine Glucose (UA) Negative mg/dL (NEG) Urine Ketones (Stick) Trace mg/dL (NEG) Urine Blood Negative (NEG) Urine Nitrite Negative (NEG) Urine Bilirubin Small (NEG) Urine Urobilinogen Dipstick 1.0 mg/dL (0.2 mg/dL) Urine Leukocyte Esterase Negative (NEG) Urine RBC 0 /HPF (0-2) Urine WBC 1-4 /HPF (0-4) Urine Squamous Epithelial Cells Mod /LPF Urine Amorphous Sediment Present /HPF Urine Bacteria 0 /HPF (0-FEW) Urine Mucus Slight /LPF Sodium Level 140 mmol/L (136-145) Potassium Level 4.0 mmol/L (3.5-5.1) Chloride Level 104 mmol/L (98-107) Carbon Dioxide Level 21 mmol/L (21-32) Anion Gap 15 (6-14) Blood Urea Nitrogen 24 mg/dL (7-20) Creatinine 1.2 mg/dL (0.6-1.0) Estimated GFR (Cockcroft-Gault) 54.4 BUN/Creatinine Ratio 20 (6-20) Glucose Level 65 mg/dL (70-99) Lactic Acid Level 1.7 mmol/L (0.4-2.0) Calcium Level 9.2 mg/dL (8.5-10.1) Total Bilirubin 0.7 mg/dL (0.2-1.0) Gamma Glutamyl Transpeptidase 54 U/L (5-55) Aspartate Amino Transf (AST/SGOT) 91 U/L (15-37) Alanine Aminotransferase (ALT/SGPT) 36 U/L (14-59) Alkaline Phosphatase 224 U/L (46-116) Ammonia < 10 mcmol/L (11-34) Troponin I Quantitative < 0.017 ng/mL (0.000-0.055) Total Protein 6.4 g/dL (6.4-8.2) Albumin 2.6 g/dL (3.4-5.0) Albumin/Globulin Ratio 0.7 (1.0-1.7) Vitamin B12 Level > 2000 pg/mL (247-911) Thyroid Stimulating Hormone (TSH) 1.380 uIU/mL (0.358-3.74) Free Thyroxine 1.94 ng/dL (0.76-1.46) Urine Opiates Screen Pos (NEG) Urine Methadone Screen Neg (NEG) Urine Barbiturates Neg (NEG) Urine Phencyclidine Screen Neg (NEG) Urine Amphetamine/Methamphetamine Neg (NEG) Urine Benzodiazepines Screen Neg (NEG) Urine Cocaine Screen Neg (NEG) Urine Cannabinoids Screen Neg (NEG) Ethyl Alcohol Level < 10 mg/dL (0-10) Urine Ethyl Alcohol Neg (NEG) Glucose (Fingerstick) 177 mg/dL (70-99) 84 mg/dL (70-99) Test 03/05/20 07:17 03/05/20 07:55 03/05/20 08:25 03/05/20 11:58 Glucose (Fingerstick) 57 mg/dL (70-99) 193 mg/dL (70-99) 103 mg/dL (70-99) Glucose Level 181 mg/dL (70-99) Laboratory Tests Test 03/04/20 13:34 03/05/20 07:17 03/05/20 07:55 03/05/20 08:25 Glucose (Fingerstick) 84 mg/dL (70-99) 57 mg/dL (70-99) 193 mg/dL (70-99) Glucose Level 181 mg/dL (70-99) Test 03/05/20 11:58 Glucose (Fingerstick) 103 mg/dL (70-99) Microbiology 03/04/20 Blood Culture - Preliminary, Resulted NO GROWTH AFTER 1 DAY Medications Current Medications Iohexol (Omnipaque 300 Mg/ml) 60 ml 1X ONCE IV Last administered on 03/04/20at 10:59; Start 03/04/20 at 10:45; Stop 03/04/20 at 10:46; Status DC Info (CONTRAST GIVEN -- Rx MONITORING) 1 each PRN DAILY PRN MC SEE COMMENTS; Start 03/04/20 at 10:45; Stop 03/06/20 at 10:44 Dextrose (Dextrose 50%-Water Syringe) 25 gm 1X ONCE IV Last administered on 03/04/20at 11:07; Start 03/04/20 at 10:45; Stop 03/04/20 at 10:46; Status DC Ceftriaxone Sodium (Rocephin) 1 gm 1X ONCE IVP Last administered on 03/04/20at 11:52; Start 03/04/20 at 12:00; Stop 03/04/20 at 12:01; Status DC Ondansetron HCl (Zofran) 4 mg PRN Q8HRS PRN IV NAUSEA/VOMITING; Start 03/04/20 at 12:15; Stop 03/05/20 at 12:14; Status DC Sodium Chloride 1,000 ml @ 100 mls/hr Q10H IV Last administered on 03/05/20at 06:04; Start 03/04/20 at 12:13; Stop 03/05/20 at 08:13; Status DC Sodium Chloride 1,000 ml @ 100 mls/hr Q10H IV ; Start 03/04/20 at 12:45 Ondansetron HCl (Zofran) 4 mg PRN Q4HRS PRN IV NAUSEA/VOMITING; Start 03/04/20 at 12:45 Zolpidem Tartrate (Ambien) 5 mg PRN QHS PRN PO INSOMNIA; Start 03/04/20 at 12:45 Acetaminophen (Tylenol) 650 mg PRN Q4HRS PRN PO TEMP OVER 100.4F OR MILD PAIN; Start 03/04/20 at 12:45 Docusate Sodium (Colace) 100 mg PRN BID PRN PO HARD STOOLS; Start 03/04/20 at 12:45 Albuterol Sulfate (Ventolin Neb Soln) 2.5 mg PRN Q4HRS PRN NEB SHORTNESS OF BREATH; Start 03/04/20 at 12:45 Guaifenesin (Robitussin) 200 mg PRN Q4HRS PRN PO COUGH; Start 03/04/20 at 12:45 Lorazepam (Ativan) 0.5 mg PRN Q4HRS PRN PO ANXIETY / AGITATION; Start 03/04/20 at 12:45 Enoxaparin Sodium (Lovenox 40mg Syringe) 30 mg Q24H SQ Last administered on 03/04/20at 16:03; Start 03/04/20 at 13:00; Stop 03/05/20 at 12:36; Status DC Acetaminophen (Tylenol) 650 mg PRN Q4HRS PRN PO TEMP OVER 100.4F OR MILD PAIN; Start 03/04/20 at 12:45; Status UNV Amlodipine Besylate (Norvasc) 10 mg DAILY PO ; Start 03/04/20 at 14:00 Ferrous Sulfate (Feosol) 325 mg DAILY08 PO ; Start 03/05/20 at 08:00 Hydralazine HCl (Apresoline) 25 mg TID PO ; Start 03/04/20 at 14:00 Hydralazine HCl (Apresoline) 25 mg PRN TID PRN PO HYPERTENSION; Start 03/04/20 at 12:45 Levofloxacin (Levaquin) 500 mg DAILY PO ; Start 03/05/20 at 09:00 Pantoprazole Sodium (Protonix) 40 mg DAILYAC PO ; Start 03/05/20 at 07:30 Thiamine Mononitrate (Vitamin B-1) 100 mg DAILY PO ; Start 03/05/20 at 09:00 Trazodone HCl (Desyrel) 50 mg QHS PO ; Start 03/04/20 at 21:00 Triamterene/HCTZ (Maxzide 37.5/ 25mg) 1 tab DAILY PO ; Start 03/05/20 at 09:00 Ziprasidone (Geodon) 20 mg BID PO ; Start 03/04/20 at 21:00 Cyanocobalamin (Vitamin B-12) 2,500 mcg DAILY PO ; Start 03/05/20 at 09:00 Levetiracetam (Keppra) 500 mg BID PO ; Start 03/04/20 at 21:00; Stop 03/04/20 at 17:48; Status DC Multivitamins (Thera M Plus) 1 tab DAILY PO ; Start 03/05/20 at 09:00 Prochlorperazine Maleate (Compazine) 10 mg Q6HRS PO ; Start 03/04/20 at 13:30 Famotidine (Pepcid) 20 mg DAILY PO ; Start 03/04/20 at 14:00 Vitamin D (Vitamin D3) 1,000 unit DAILY PO ; Start 03/04/20 at 14:00 Aspirin (Aspirin Rectal Supp) 300 mg 1X ONCE [place] Last administered on 03/04/20at 16:04; Start 03/04/20 at 14:00; Stop 03/04/20 at 14:01; Status DC Pharmacy Consult (C.diff Med Screen By Rx) 1 each 1X ONCE MC ; Start 03/04/20 at 15:45; Stop 03/04/20 at 15:46; Status UNV Levetiracetam 1000 mg/Dextrose 110 ml @ 440 mls/hr 1X ONCE IV Last administered on 03/04/20at 20:03; Start 03/04/20 at 18:00; Stop 03/04/20 at 18:14; Status DC Levetiracetam 500 mg/Dextrose 105 ml @ 420 mls/hr Q12HR IV Last administered on 03/05/20at 08:46; Start 03/04/20 at 23:30 Dextrose 250 ml @ As Directed STK-MED ONCE IV ; Start 03/05/20 at 07:20; Stop 03/05/20 at 07:20; Status DC Dextrose (Dextrose 50%-Water Syringe) 25 gm STK-MED ONCE IV ; Start 03/05/20 at 07:22; Stop 03/05/20 at 07:23; Status DC Dextrose (Dextrose 50%-Water Syringe) 25 gm 1X ONCE IV Last administered on 03/05/20at 07:32; Start 03/05/20 at 07:30; Stop 03/05/20 at 07:31; Status DC Dextrose/Sodium Chloride 1,000 ml @ 75 mls/hr [id number] IV Last administered on 03/05/20at 08:51; Start 03/05/20 at 08:15 Enoxaparin Sodium (Lovenox 30mg Syringe) 30 mg Q24H SQ ; Start 03/05/20 at 16:00 Active Scripts Active Levaquin (Levofloxacin) 500 Mg Tablet 1 Tab PO DAILY 10 Days Trazodone Hcl 50 Mg Tablet 1 Tab PO QHS Tylenol (Acetaminophen) 325 Mg Tablet 650 Mg PO PRN Q4HRS PRN 10 Days Geodon (Ziprasidone Hcl) 20 Mg Capsule 1 Cap PO BID Triamterene-Hctz 37.5-25 Mg Tb (Triamterene/Hydrochlorothiazid) 1 Each Tablet 1 Tab PO DAILY 30 Days Hydralazine Hcl 25 Mg Tablet 25 Mg PO PRN TID PRN 30 Days For SBP > 150mmHg take as needed 3 times per day Amlodipine Besylate 10 Mg Tablet 10 Mg PO DAILY 30 Days Vitamin B-1 (Thiamine Mononitrate) 100 Mg Tablet 100 Mg PO DAILY 30 Days Reported Compazine (Prochlorperazine Maleate) 10 Mg Tablet 1 Tab PO Q6HRS 7 Days Protonix (Pantoprazole Sodium) 40 Mg Tablet.dr 40 Mg PO DAILYAC Gummi Bear Multivitamin (Multivitamin) 1 Each Tab.chew 1 Each PO DAILY Ferrous Sulfate 325 Mg Tablet 1 Tab PO DAILY Levetiracetam 500 Mg Tab.er.24h 1 Tab PO BID 30 Days Hydralazine Hcl 25 Mg Tablet 1 Tab PO TID [Vitamin D3] 25 Mcg PO DAILY Vitamin B12 (Cyanocobalamin (Vitamin B-12)) 2,500 Mcg Tablet 1 Tab PO DAILY 30 Days Ranitidine Hcl 150 Mg Capsule 1 Cap PO BID Proair Hfa Inhaler (Albuterol Sulfate) 8.5 Gm Hfa.aer.ad 2 Puff IH PRN Q4-6HRS Vitals/I & O Vital Sign - Last 24 Hours 03/04/20 03/04/20 03/04/20 03/04/20 13:20 14:30 15:00 16:03 Temp 98.1 98.1 Pulse 62 69 Resp 16 16 B/P (MAP) 118/67 (84) Pulse Ox 97 97 97 O2 Delivery Room Air Room Air Room Air 03/04/20 03/04/20 03/04/20 03/05/20 19:00 20:00 23:00 03:00 Temp 98.7 98.5 99.1 98.7 98.5 99.1 Pulse 74 75 81 Resp 18 18 18 B/P (MAP) 103/68 (80) 123/74 (90) 113/70 (84) Pulse Ox 90 92 90 O2 Delivery Room Air Room Air Room Air Room Air 03/05/20 03/05/20 07:57 11:00 Temp 98.6 98.0 98.6 98.0 Pulse 77 74 Resp 16 16 B/P (MAP) 118/75 (89) 141/86 (104) Pulse Ox 97 98 O2 Delivery Room Air Room Air Intake and Output 03/04/20 03/04/20 03/05/20 15:00 23:00 07:00 Intake Total 0 ml 1105 ml Balance 0 ml 1105 ml Nutrition Consultation Dietary Evaluation: Recommendations by RD: Dietary education by RD, PPN/TPN Comments: REC diet as tolerated, honor food preferences and offer snacks/ supplements from unit prn. consider nutrition support with agressive care plan. Expected Outcomes/Goals: to be determined Interpretation of weight loss: >1-2% in 1 week Malnutrition Findings: Muscle Mass (Severe): Severe Depletion Weight Status: Underweight Justicifation of Admission Dx: Justifications for Admission: Justification of Admission Dx: Yes RHINA CERVANTES MD Mar 05, 2020 13:04
[2020-03-05 15:19] VITALS: BP 154/78
--- NOTE | 2020-03-05 17:30 | PDOC ---
PROGRESS NOTES Assessment 1. She continues to appear encephalopathic. The cause is not entirely clear. I am concerned she may be having focal seizure with jerking of her left mouth. As I was watching her this stopped and then she had twitching of the right mouth. This may be a motor tic. The MRI of the brain has been delayed due to the technicians concerned about an aneurysmal clip. I did explain that she had an MRI/MRA in July 2018 which revealed the aneurysmal clip and was done to look at the arteries as well. She obviously can tolerate an MRI despite the aneurysm clip. The nurse did obtain source information from regarding the clip. 2. She has metastatic colon cancer stage IV. She is only received chemotherapy on 2 occasions so the oncologist does not know if she is responding. If her encephalopathy is a consequence of the chemotherapy then her functional status is so low that she may not be able to tolerate further. 3. She has malnutrition and is still not able to eat. Plan 1. She may need a nasogastric tube for nutritional support to see if this might improve her energy and encephalopathy. 2. We can order further labs to look for other states which might be contributing to the decline in consciousness. 3. Hopefully now we can arrange for an MRI of her brain with and without contrast to see if there is evidence of metastatic disease or other lesions. Subjective Speech is unintelligible. Objective Vital Signs Date Time Temp Pulse Resp B/P (MAP) Pulse Ox O2 Delivery O2 Flow Rate FiO2 03/05/20 15:19 99.4 72 18 154/78 (103) 98 Room Air 99.4 Intake and Output 03/05/20 07:00 Intake Total 1105 ml Balance 1105 ml Intake Oral 0 ml IV Total 1105 ml # Voids 3 # Bowel Movements 1 PHYSICAL EXAM She was sitting in a reclining chair. Her eyes were open. She did try to respond verbally but was largely unintelligible. The eyes were midline. They appeared conjugate but I could not get her to follow my finger. She responded to visual threat and clapping by blinking. She periodically had facial twitching on the left and I also saw this occur on the right. Muscle bulk was symmetrically diminished. She was able to raise her right arm in the air to command. She had some movement of the left arm but it was less than the right. She did perceive stimulation with nailbed pressure bilaterally. Review of Relevant I have reviewed the following items remi (where applicable) has been applied. Labs Laboratory Tests Test 03/04/20 10:42 03/04/20 10:50 03/04/20 11:41 03/04/20 13:34 White Blood Count 6.4 x10^3/uL (4.0-11.0) Red Blood Count 3.85 x10^6/uL (3.50-5.40) Hemoglobin 10.1 g/dL (12.0-15.5) Hematocrit 31.2 % (36.0-47.0) Mean Corpuscular Volume 81 fL (79-100) Mean Corpuscular Hemoglobin 26 pg (25-35) Mean Corpuscular Hemoglobin Concent 33 g/dL (31-37) Red Cell Distribution Width 16.1 % (11.5-14.5) Platelet Count 178 x10^3/uL (140-400) Neutrophils (%) (Auto) 71 % (31-73) Lymphocytes (%) (Auto) 16 % (24-48) Monocytes (%) (Auto) 12 % (0-9) Eosinophils (%) (Auto) 1 % (0-3) Basophils (%) (Auto) 1 % (0-3) Neutrophils # (Auto) 4.5 x10^3/uL (1.8-7.7) Lymphocytes # (Auto) 1.0 x10^3/uL (1.0-4.8) Monocytes # (Auto) 0.7 x10^3/uL (0.0-1.1) Eosinophils # (Auto) 0.0 x10^3/uL (0.0-0.7) Basophils # (Auto) 0.1 x10^3/uL (0.0-0.2) Prothrombin Time 14.7 SEC (11.7-14.0) Prothromb Time International Ratio 1.2 (0.8-1.1) Activated Partial Thromboplast Time 37 SEC (24-38) Urine Collection Type Unknown Urine Color Kim Urine Clarity Clear Urine pH 5.0 (<5.0-8.0) Urine Specific [place] 1.025 (1.000-1.030) Urine Protein 30 mg/dL (NEG-TRACE) Urine Glucose (UA) Negative mg/dL (NEG) Urine Ketones (Stick) Trace mg/dL (NEG) Urine Blood Negative (NEG) Urine Nitrite Negative (NEG) Urine Bilirubin Small (NEG) Urine Urobilinogen Dipstick 1.0 mg/dL (0.2 mg/dL) Urine Leukocyte Esterase Negative (NEG) Urine RBC 0 /HPF (0-2) Urine WBC 1-4 /HPF (0-4) Urine Squamous Epithelial Cells Mod /LPF Urine Amorphous Sediment Present /HPF Urine Bacteria 0 /HPF (0-FEW) Urine Mucus Slight /LPF Sodium Level 140 mmol/L (136-145) Potassium Level 4.0 mmol/L (3.5-5.1) Chloride Level 104 mmol/L (98-107) Carbon Dioxide Level 21 mmol/L (21-32) Anion Gap 15 (6-14) Blood Urea Nitrogen 24 mg/dL (7-20) Creatinine 1.2 mg/dL (0.6-1.0) Estimated GFR (Cockcroft-Gault) 54.4 BUN/Creatinine Ratio 20 (6-20) Glucose Level 65 mg/dL (70-99) Lactic Acid Level 1.7 mmol/L (0.4-2.0) Calcium Level 9.2 mg/dL (8.5-10.1) Total Bilirubin 0.7 mg/dL (0.2-1.0) Gamma Glutamyl Transpeptidase 54 U/L (5-55) Aspartate Amino Transf (AST/SGOT) 91 U/L (15-37) Alanine Aminotransferase (ALT/SGPT) 36 U/L (14-59) Alkaline Phosphatase 224 U/L (46-116) Ammonia < 10 mcmol/L (11-34) Troponin I Quantitative < 0.017 ng/mL (0.000-0.055) Total Protein 6.4 g/dL (6.4-8.2) Albumin 2.6 g/dL (3.4-5.0) Albumin/Globulin Ratio 0.7 (1.0-1.7) Vitamin B12 Level > 2000 pg/mL (247-911) Thyroid Stimulating Hormone (TSH) 1.380 uIU/mL (0.358-3.74) Free Thyroxine 1.94 ng/dL (0.76-1.46) Urine Opiates Screen Pos (NEG) Urine Methadone Screen Neg (NEG) Urine Barbiturates Neg (NEG) Urine Phencyclidine Screen Neg (NEG) Urine Amphetamine/Methamphetamine Neg (NEG) Urine Benzodiazepines Screen Neg (NEG) Urine Cocaine Screen Neg (NEG) Urine Cannabinoids Screen Neg (NEG) Ethyl Alcohol Level < 10 mg/dL (0-10) Urine Ethyl Alcohol Neg (NEG) Glucose (Fingerstick) 177 mg/dL (70-99) 84 mg/dL (70-99) Test 03/05/20 07:17 03/05/20 07:55 03/05/20 08:25 03/05/20 11:58 Glucose (Fingerstick) 57 mg/dL (70-99) 193 mg/dL (70-99) 103 mg/dL (70-99) Glucose Level 181 mg/dL (70-99) Test 03/05/20 16:49 Glucose (Fingerstick) 129 mg/dL (70-99) Laboratory Tests Test 03/05/20 07:17 03/05/20 07:55 03/05/20 08:25 03/05/20 11:58 Glucose (Fingerstick) 57 mg/dL (70-99) 193 mg/dL (70-99) 103 mg/dL (70-99) Glucose Level 181 mg/dL (70-99) Test 03/05/20 16:49 Glucose (Fingerstick) 129 mg/dL (70-99) Microbiology 03/04/20 Blood Culture - Preliminary, Resulted NO GROWTH AFTER 1 DAY Medications Current Medications Iohexol (Omnipaque 300 Mg/ml) 60 ml 1X ONCE IV Last administered on 03/04/20at 10:59; Start 03/04/20 at 10:45; Stop 03/04/20 at 10:46; Status DC Info (CONTRAST GIVEN -- Rx MONITORING) 1 each PRN DAILY PRN MC SEE COMMENTS; Start 03/04/20 at 10:45; Stop 03/06/20 at 10:44 Dextrose (Dextrose 50%-Water Syringe) 25 gm 1X ONCE IV Last administered on 03/04/20at 11:07; Start 03/04/20 at 10:45; Stop 03/04/20 at 10:46; Status DC Ceftriaxone Sodium (Rocephin) 1 gm 1X ONCE IVP Last administered on 03/04/20at 11:52; Start 03/04/20 at 12:00; Stop 03/04/20 at 12:01; Status DC Ondansetron HCl (Zofran) 4 mg PRN Q8HRS PRN IV NAUSEA/VOMITING; Start 03/04/20 at 12:15; Stop 03/05/20 at 12:14; Status DC Sodium Chloride 1,000 ml @ 100 mls/hr Q10H IV Last administered on 03/05/20at 06:04; Start 03/04/20 at 12:13; Stop 03/05/20 at 08:13; Status DC Sodium Chloride 1,000 ml @ 100 mls/hr Q10H IV ; Start 03/04/20 at 12:45 Ondansetron HCl (Zofran) 4 mg PRN Q4HRS PRN IV NAUSEA/VOMITING; Start 03/04/20 at 12:45 Zolpidem Tartrate (Ambien) 5 mg PRN QHS PRN PO INSOMNIA; Start 03/04/20 at 12:45 Acetaminophen (Tylenol) 650 mg PRN Q4HRS PRN PO TEMP OVER 100.4F OR MILD PAIN; Start 03/04/20 at 12:45 Docusate Sodium (Colace) 100 mg PRN BID PRN PO HARD STOOLS; Start 03/04/20 at 12:45 Albuterol Sulfate (Ventolin Neb Soln) 2.5 mg PRN Q4HRS PRN NEB SHORTNESS OF BREATH; Start 03/04/20 at 12:45 Guaifenesin (Robitussin) 200 mg PRN Q4HRS PRN PO COUGH; Start 03/04/20 at 12:45 Lorazepam (Ativan) 0.5 mg PRN Q4HRS PRN PO ANXIETY / AGITATION; Start 03/04/20 at 12:45 Enoxaparin Sodium (Lovenox 40mg Syringe) 30 mg Q24H SQ Last administered on 03/04/20at 16:03; Start 03/04/20 at 13:00; Stop 03/05/20 at 12:36; Status DC Acetaminophen (Tylenol) 650 mg PRN Q4HRS PRN PO TEMP OVER 100.4F OR MILD PAIN; Start 03/04/20 at 12:45; Status UNV Amlodipine Besylate (Norvasc) 10 mg DAILY PO ; Start 03/04/20 at 14:00 Ferrous Sulfate (Feosol) 325 mg DAILY08 PO ; Start 03/05/20 at 08:00 Hydralazine HCl (Apresoline) 25 mg TID PO ; Start 03/04/20 at 14:00 Hydralazine HCl (Apresoline) 25 mg PRN TID PRN PO HYPERTENSION; Start 03/04/20 at 12:45 Levofloxacin (Levaquin) 500 mg DAILY PO ; Start 03/05/20 at 09:00 Pantoprazole Sodium (Protonix) 40 mg DAILYAC PO ; Start 03/05/20 at 07:30 Thiamine Mononitrate (Vitamin B-1) 100 mg DAILY PO ; Start 03/05/20 at 09:00 Trazodone HCl (Desyrel) 50 mg QHS PO ; Start 03/04/20 at 21:00 Triamterene/HCTZ (Maxzide 37.5/ 25mg) 1 tab DAILY PO ; Start 03/05/20 at 09:00 Ziprasidone (Geodon) 20 mg BID PO ; Start 03/04/20 at 21:00 Cyanocobalamin (Vitamin B-12) 2,500 mcg DAILY PO ; Start 03/05/20 at 09:00 Levetiracetam (Keppra) 500 mg BID PO ; Start 03/04/20 at 21:00; Stop 03/04/20 at 17:48; Status DC Multivitamins (Thera M Plus) 1 tab DAILY PO ; Start 03/05/20 at 09:00 Prochlorperazine Maleate (Compazine) 10 mg Q6HRS PO ; Start 03/04/20 at 13:30 Famotidine (Pepcid) 20 mg DAILY PO ; Start 03/04/20 at 14:00 Vitamin D (Vitamin D3) 1,000 unit DAILY PO ; Start 03/04/20 at 14:00 Aspirin (Aspirin Rectal Supp) 300 mg 1X ONCE [place] Last administered on 03/04/20at 16:04; Start 03/04/20 at 14:00; Stop 03/04/20 at 14:01; Status DC Pharmacy Consult (C.diff Med Screen By Rx) 1 each 1X ONCE MC ; Start 03/04/20 at 15:45; Stop 03/04/20 at 15:46; Status UNV Levetiracetam 1000 mg/Dextrose 110 ml @ 440 mls/hr 1X ONCE IV Last administered on 03/04/20at 20:03; Start 03/04/20 at 18:00; Stop 03/04/20 at 18:14; Status DC Levetiracetam 500 mg/Dextrose 105 ml @ 420 mls/hr Q12HR IV Last administered on 03/05/20at 08:46; Start 03/04/20 at 23:30 Dextrose 250 ml @ As Directed STK-MED ONCE IV ; Start 03/05/20 at 07:20; Stop 03/05/20 at 07:20; Status DC Dextrose (Dextrose 50%-Water Syringe) 25 gm STK-MED ONCE IV ; Start 03/05/20 at 07:22; Stop 03/05/20 at 07:23; Status DC Dextrose (Dextrose 50%-Water Syringe) 25 gm 1X ONCE IV Last administered on 03/05/20at 07:32; Start 03/05/20 at 07:30; Stop 03/05/20 at 07:31; Status DC Dextrose/Sodium Chloride 1,000 ml @ 75 mls/hr [id number] IV Last administered on 03/05/20at 08:51; Start 03/05/20 at 08:15 Enoxaparin Sodium (Lovenox 30mg Syringe) 30 mg Q24H SQ ; Start 03/05/20 at 16:00 Active Scripts Active Levaquin (Levofloxacin) 500 Mg Tablet 1 Tab PO DAILY 10 Days Trazodone Hcl 50 Mg Tablet 1 Tab PO QHS Tylenol (Acetaminophen) 325 Mg Tablet 650 Mg PO PRN Q4HRS PRN 10 Days Geodon (Ziprasidone Hcl) 20 Mg Capsule 1 Cap PO BID Triamterene-Hctz 37.5-25 Mg Tb (Triamterene/Hydrochlorothiazid) 1 Each Tablet 1 Tab PO DAILY 30 Days Hydralazine Hcl 25 Mg Tablet 25 Mg PO PRN TID PRN 30 Days For SBP > 150mmHg take as needed 3 times per day Amlodipine Besylate 10 Mg Tablet 10 Mg PO DAILY 30 Days Vitamin B-1 (Thiamine Mononitrate) 100 Mg Tablet 100 Mg PO DAILY 30 Days Reported Compazine (Prochlorperazine Maleate) 10 Mg Tablet 1 Tab PO Q6HRS 7 Days Protonix (Pantoprazole Sodium) 40 Mg Tablet.dr 40 Mg PO DAILYAC Gummi Bear Multivitamin (Multivitamin) 1 Each Tab.chew 1 Each PO DAILY Ferrous Sulfate 325 Mg Tablet 1 Tab PO DAILY Levetiracetam 500 Mg Tab.er.24h 1 Tab PO BID 30 Days Hydralazine Hcl 25 Mg Tablet 1 Tab PO TID [Vitamin D3] 25 Mcg PO DAILY Vitamin B12 (Cyanocobalamin (Vitamin B-12)) 2,500 Mcg Tablet 1 Tab PO DAILY 30 Days Ranitidine Hcl 150 Mg Capsule 1 Cap PO BID Proair Hfa Inhaler (Albuterol Sulfate) 8.5 Gm Hfa.aer.ad 2 Puff IH PRN Q4-6HRS Vitals/I & O Vital Sign - Last 24 Hours 03/04/20 03/04/20 03/04/20 03/05/20 19:00 20:00 23:00 03:00 Temp 98.7 98.5 99.1 98.7 98.5 99.1 Pulse 74 75 81 Resp 18 18 18 B/P (MAP) 103/68 (80) 123/74 (90) 113/70 (84) Pulse Ox 90 92 90 O2 Delivery Room Air Room Air Room Air Room Air 03/05/20 03/05/20 03/05/20 07:57 11:00 15:19 Temp 98.6 98.0 99.4 98.6 98.0 99.4 Pulse 77 74 72 Resp 16 16 18 B/P (MAP) 118/75 (89) 141/86 (104) 154/78 (103) Pulse Ox 97 98 98 O2 Delivery Room Air Room Air Room Air Intake and Output 03/04/20 03/04/20 03/05/20 15:00 23:00 07:00 Intake Total 0 ml 1105 ml Balance 0 ml 1105 ml Justicifation of Admission Dx: Justifications for Admission: Justification of Admission Dx: Yes SHAUNA LOPEZ MD Mar 05, 2020 17:30
[2020-03-05 19:00] VITALS: BP 144/86
[2020-03-05] MEDS: ENOXAPARIN 30 MG/0.3 ML SYRINGE. SQ SCH (19:45)
[2020-03-05] MEDS: traZODone 50 MG TABLET. PO SCH (20:48)
[2020-03-05 23:00] VITALS: BP 154/85
[2020-03-06 03:00] VITALS: BP 152/80
[2020-03-06] MEDS: IV DEXTROSE 5 %-0.45 % NACL 1,000 ML IV SCH ×3 (05:40→21:28)
[2020-03-06 05:52] LABS: BASO % 1 % (0-3); EOS % 1 % (0-3); HEMATOCRIT 28.4 % (36.0-47.0); HEMOGLOBIN 9.4 g/dL (12.0-15.5); LYMPH # 1.1 x10^3/uL (1.0-4.8); LYMPH % 20 % (24-48); MEAN CORPUSCULAR HEMOGLOBIN 27 pg (25-35); MEAN CORPUSCULAR HGB CONC 33 g/dL (31-37); MEAN CORPUSCULAR VOLUME 81 fL (79-100); MONO # 0.9 x10^3/uL (0.0-1.1); MONO % 16 % (0-9); NEUT # 3.6 x10^3/uL (1.8-7.7); NEUT % 63 % (31-73); PLATELET COUNT 182 x10^3/uL (140-400); RED BLOOD COUNT 3.51 x10^6/uL (3.50-5.40); RED CELL DISTRIBUTION WIDTH 16.2 % (11.5-14.5); WHITE BLOOD COUNT 5.7 x10^3/uL (4.0-11.0)
[2020-03-06 06:15] LABS: ALBUMIN 2.2 g/dL (3.4-5.0); ALBUMIN/GLOBULIN RATIO 0.6 (1.0-1.7); CALCIUM 8.8 mg/dL (8.5-10.1); CREATININE 0.9 mg/dL (0.6-1.0); GFR 75.8; POTASSIUM 3.4 mmol/L (3.5-5.1); TOTAL BILIRUBIN 0.7 mg/dL (0.2-1.0); TOTAL PROTEIN 5.6 g/dL (6.4-8.2)
[2020-03-06 07:00] VITALS: BP 147/84
[2020-03-06] MEDS: PANTOPRAZOLE 40 MG TABLET.DR. PO SCH (07:30)
[2020-03-06] MEDS: FERROUS SULFATE 325 MG TABLET. PO SCH (08:00)
[2020-03-06] MEDS: levETIRAcetam 500 MG in IV DEXTROSE 5% 100ML 100 ML IV SCH (08:15)
[2020-03-06] MEDS: amLODIPine BESYLATE 10 MG TABLET PO SCH (09:00)
[2020-03-06] MEDS: CYANOCOBALAMIN (VITAMIN B-12) 1,000 MCG TABLET. PO SCH (09:00)
[2020-03-06] MEDS: TRIAMTERENE/HCTZ 37.5/25MG TABLET. PO SCH (09:00)
[2020-03-06] MEDS: CHOLECALCIFEROL (VITAMIN D3) 1,000 UNIT TABLET PO SCH (09:00)
[2020-03-06] MEDS: FAMOTIDINE 20 MG TABLET. PO SCH (09:00)
[2020-03-06] MEDS: MULTIVITAMIN with MINERAL TABLET. PO SCH (09:00)
[2020-03-06] MEDS: ZIPRASIDONE 20 MG CAPSULE PO SCH ×2 (09:00→21:00)
[2020-03-06] MEDS: hydrALAZINE 25 MG TABLET PO SCH ×3 (09:00→21:00)
[2020-03-06] MEDS: THIAMINE 100 MG TABLET. PO SCH (09:00)
--- NOTE | 2020-03-06 09:01 | PDOC2 ---
CONSULT Date of Consult Date of Consult DATE: 03/06/20 TIME: 08:51 Reason for Consult Reason for Consult: Metastatic colon cancer Referring Physician Referring Physician: Dr Duong Identification/Chief Complaint Chief Complaint Encephalopathy Problems: (1) Metastatic colon cancer to liver (2) Altered mental status Source Source: Caregiver, Patient History of Present Illness Reason for Visit: Taina Cheek is a 64 year old female with metastatic colon cancer who has been admitted with altered mental status. She is currently receiving palliative chemotherapy with FOLFOX and has so far received 2 cycles of chemotherapy. Her last dose of chemotherapy was on 02/19/2020. She was seen in clinic on 03/04/2020 for consideration of cycle 3 chemo and was found to be confused. She also had food in her mouth from breakfast a few hours ago and was unable tos wallow. Lab evaluation was unremarkable and she was admitted for further evaluation and management of acute encephalopathy. CT head showed a 3 cm wedge-shaped left frontal lobe white matter hypodense lesion new from CT imaging in 2019 may represent an age-indeterminate ischemic or demyelinating injury. CTA head and neck showed multifocal severe narrowing of the right MCA branches with occlusion of the right superior M3 branch in the region of the right frontal lobe encephalomalacia. Postoperative changes anterior communicating artery aneurysm clipping. MRI was recommended and additional information is being sought regarding aneurysmal clip placement from [facility]. Oncology has been consulted to follow the patient given her cancer diagnosis and describe her prognosis from an oncology standpoint. Past Medical History Cardiovascular: HTN Pulmonary: Asthma CENTRAL NERVOUS SYSTEM: Seizure, Other GI: GERD Endocrine: Diabetes Past Surgical History Past Surgical History: Other Family History Family History: Alcohol Abuse, No Significant Social History No ALCOHOL: none Drugs: None, Cocaine Current Medications Current Medications Current Medications Iohexol (Omnipaque 300 Mg/ml) 60 ml 1X ONCE IV Last administered on 03/04/20at 10:59; Start 03/04/20 at 10:45; Stop 03/04/20 at 10:46; Status DC Info (CONTRAST GIVEN -- Rx MONITORING) 1 each PRN DAILY PRN MC SEE COMMENTS; Start 03/04/20 at 10:45; Stop 03/06/20 at 10:44 Dextrose (Dextrose 50%-Water Syringe) 25 gm 1X ONCE IV Last administered on 03/04/20at 11:07; Start 03/04/20 at 10:45; Stop 03/04/20 at 10:46; Status DC Ceftriaxone Sodium (Rocephin) 1 gm 1X ONCE IVP Last administered on 03/04/20at 11:52; Start 03/04/20 at 12:00; Stop 03/04/20 at 12:01; Status DC Ondansetron HCl (Zofran) 4 mg PRN Q8HRS PRN IV NAUSEA/VOMITING; Start 03/04/20 at 12:15; Stop 03/05/20 at 12:14; Status DC Sodium Chloride 1,000 ml @ 100 mls/hr Q10H IV Last administered on 03/05/20at 06:04; Start 03/04/20 at 12:13; Stop 03/05/20 at 08:13; Status DC Sodium Chloride 1,000 ml @ 100 mls/hr Q10H IV ; Start 03/04/20 at 12:45; Stop 03/05/20 at 19:40; Status DC Ondansetron HCl (Zofran) 4 mg PRN Q4HRS PRN IV NAUSEA/VOMITING; Start 03/04/20 at 12:45 Zolpidem Tartrate (Ambien) 5 mg PRN QHS PRN PO INSOMNIA; Start 03/04/20 at 12:45 Acetaminophen (Tylenol) 650 mg PRN Q4HRS PRN PO TEMP OVER 100.4F OR MILD PAIN; Start 03/04/20 at 12:45 Docusate Sodium (Colace) 100 mg PRN BID PRN PO HARD STOOLS; Start 03/04/20 at 12:45 Albuterol Sulfate (Ventolin Neb Soln) 2.5 mg PRN Q4HRS PRN NEB SHORTNESS OF BREATH; Start 03/04/20 at 12:45 Guaifenesin (Robitussin) 200 mg PRN Q4HRS PRN PO COUGH; Start 03/04/20 at 12:45 Lorazepam (Ativan) 0.5 mg PRN Q4HRS PRN PO ANXIETY / AGITATION; Start 03/04/20 at 12:45 Enoxaparin Sodium (Lovenox 40mg Syringe) 30 mg Q24H SQ Last administered on 03/04/20at 16:03; Start 03/04/20 at 13:00; Stop 03/05/20 at 12:36; Status DC Acetaminophen (Tylenol) 650 mg PRN Q4HRS PRN PO TEMP OVER 100.4F OR MILD PAIN; Start 03/04/20 at 12:45; Status UNV Amlodipine Besylate (Norvasc) 10 mg DAILY PO ; Start 03/04/20 at 14:00 Ferrous Sulfate (Feosol) 325 mg DAILY08 PO ; Start 03/05/20 at 08:00 Hydralazine HCl (Apresoline) 25 mg TID PO ; Start 03/04/20 at 14:00 Hydralazine HCl (Apresoline) 25 mg PRN TID PRN PO HYPERTENSION; Start 03/04/20 at 12:45 Levofloxacin (Levaquin) 500 mg DAILY PO ; Start 03/05/20 at 09:00 Pantoprazole Sodium (Protonix) 40 mg DAILYAC PO ; Start 03/05/20 at 07:30 Thiamine Mononitrate (Vitamin B-1) 100 mg DAILY PO ; Start 03/05/20 at 09:00 Trazodone HCl (Desyrel) 50 mg QHS PO ; Start 03/04/20 at 21:00 Triamterene/HCTZ (Maxzide 37.5/ 25mg) 1 tab DAILY PO ; Start 03/05/20 at 09:00 Ziprasidone (Geodon) 20 mg BID PO ; Start 03/04/20 at 21:00 Cyanocobalamin (Vitamin B-12) 2,500 mcg DAILY PO ; Start 03/05/20 at 09:00 Levetiracetam (Keppra) 500 mg BID PO ; Start 03/04/20 at 21:00; Stop 03/04/20 at 17:48; Status DC Multivitamins (Thera M Plus) 1 tab DAILY PO ; Start 03/05/20 at 09:00 Prochlorperazine Maleate (Compazine) 10 mg Q6HRS PO ; Start 03/04/20 at 13:30 Famotidine (Pepcid) 20 mg DAILY PO ; Start 03/04/20 at 14:00 Vitamin D (Vitamin D3) 1,000 unit DAILY PO ; Start 03/04/20 at 14:00 Aspirin (Aspirin Rectal Supp) 300 mg 1X ONCE VT Last administered on 03/04/20at 16:04; Start 03/04/20 at 14:00; Stop 7/28/20 at 14:01; Status DC Pharmacy Consult (C.diff Med Screen By Rx) 1 each 1X ONCE MC ; Start 03/04/20 at 15:45; Stop 03/04/20 at 15:46; Status UNV Levetiracetam 1000 mg/Dextrose 110 ml @ 440 mls/hr 1X ONCE IV Last administered on 03/04/20at 20:03; Start 03/04/20 at 18:00; Stop 03/04/20 at 18:14; Status DC Levetiracetam 500 mg/Dextrose 105 ml @ 420 mls/hr Q12HR IV Last administered on 03/06/20at 08:15; Start 03/04/20 at 23:30 Dextrose 250 ml @ As Directed STK-MED ONCE IV ; Start 03/05/20 at 07:20; Stop 03/05/20 at 07:20; Status DC Dextrose (Dextrose 50%-Water Syringe) 25 gm STK-MED ONCE IV ; Start 03/05/20 at 07:22; Stop 03/05/20 at 07:23; Status DC Dextrose (Dextrose 50%-Water Syringe) 25 gm 1X ONCE IV Last administered on 03/05/20at 07:32; Start 03/05/20 at 07:30; Stop 03/05/20 at 07:31; Status DC Dextrose/Sodium Chloride 1,000 ml @ 75 mls/hr [id number] IV Last administered on 03/06/20at 05:40; Start 03/05/20 at 08:15 Enoxaparin Sodium (Lovenox 30mg Syringe) 30 mg Q24H SQ Last administered on 03/05/20at 19:45; Start 03/05/20 at 16:00 Active Scripts Active Levaquin (Levofloxacin) 500 Mg Tablet 1 Tab PO DAILY 10 Days Trazodone Hcl 50 Mg Tablet 1 Tab PO QHS Tylenol (Acetaminophen) 325 Mg Tablet 650 Mg PO PRN Q4HRS PRN 10 Days Geodon (Ziprasidone Hcl) 20 Mg Capsule 1 Cap PO BID Triamterene-Hctz 37.5-25 Mg Tb (Triamterene/Hydrochlorothiazid) 1 Each Tablet 1 Tab PO DAILY 30 Days Hydralazine Hcl 25 Mg Tablet 25 Mg PO PRN TID PRN 30 Days For SBP > 150mmHg take as needed 3 times per day Amlodipine Besylate 10 Mg Tablet 10 Mg PO DAILY 30 Days Vitamin B-1 (Thiamine Mononitrate) 100 Mg Tablet 100 Mg PO DAILY 30 Days Reported Compazine (Prochlorperazine Maleate) 10 Mg Tablet 1 Tab PO Q6HRS 7 Days Protonix (Pantoprazole Sodium) 40 Mg Tablet.dr 40 Mg PO DAILYAC Gummi Bear Multivitamin (Multivitamin) 1 Each Tab.chew 1 Each PO DAILY Ferrous Sulfate 325 Mg Tablet 1 Tab PO DAILY Levetiracetam 500 Mg Tab.er.24h 1 Tab PO BID 30 Days Hydralazine Hcl 25 Mg Tablet 1 Tab PO TID [Vitamin D3] 25 Mcg PO DAILY Vitamin B12 (Cyanocobalamin (Vitamin B-12)) 2,500 Mcg Tablet 1 Tab PO DAILY 30 Days Ranitidine Hcl 150 Mg Capsule 1 Cap PO BID Proair Hfa Inhaler (Albuterol Sulfate) 8.5 Gm Hfa.aer.ad 2 Puff IH PRN Q4-6HRS Allergies Allergies: Coded Allergies: Penicillins (Verified Allergy, Intermediate, N/V ITCH, 03/30/18) I S O L A T I O N *CONTACT* (Verified Allergy, Unknown, 03/29/18) carbapenem resistant PSA ROS Review of System Unable to obtain a full ROS due to patient's mental status. She denies pain Physical Exam General: Alert, Cooperative, Other (Not oriented) HEENT: Atraumatic Lungs: Clear to auscultation Heart: Regular rate Abdomen: Normal bowel sounds, Soft Extremities: No clubbing Skin: No rashes Neuro: Other (Patient is unable to cooperate for a full neurologic exam) Psych/Mental Status: Mood NL MUSCULOSKELETAL: No joint tenderness, No swelling Vitals VITALS Vital Signs Date Time Temp Pulse Resp B/P (MAP) Pulse Ox O2 Delivery O2 Flow Rate FiO2 03/06/20 07:00 98.0 69 18 147/84 (105) 94 Room Air 98.0 Labs Labs Laboratory Tests Test 03/04/20 10:42 03/04/20 10:50 03/04/20 11:41 03/04/20 13:34 White Blood Count 6.4 x10^3/uL (4.0-11.0) Red Blood Count 3.85 x10^6/uL (3.50-5.40) Hemoglobin 10.1 g/dL (12.0-15.5) Hematocrit 31.2 % (36.0-47.0) Mean Corpuscular Volume 81 fL (79-100) Mean Corpuscular Hemoglobin 26 pg (25-35) Mean Corpuscular Hemoglobin Concent 33 g/dL (31-37) Red Cell Distribution Width 16.1 % (11.5-14.5) Platelet Count 178 x10^3/uL (140-400) Neutrophils (%) (Auto) 71 % (31-73) Lymphocytes (%) (Auto) 16 % (24-48) Monocytes (%) (Auto) 12 % (0-9) Eosinophils (%) (Auto) 1 % (0-3) Basophils (%) (Auto) 1 % (0-3) Neutrophils # (Auto) 4.5 x10^3/uL (1.8-7.7) Lymphocytes # (Auto) 1.0 x10^3/uL (1.0-4.8) Monocytes # (Auto) 0.7 x10^3/uL (0.0-1.1) Eosinophils # (Auto) 0.0 x10^3/uL (0.0-0.7) Basophils # (Auto) 0.1 x10^3/uL (0.0-0.2) Prothrombin Time 14.7 SEC (11.7-14.0) Prothromb Time International Ratio 1.2 (0.8-1.1) Activated Partial Thromboplast Time 37 SEC (24-38) Urine Collection Type Unknown Urine Color Kim Urine Clarity Clear Urine pH 5.0 (<5.0-8.0) Urine Specific Haines 1.025 (1.000-1.030) Urine Protein 30 mg/dL (NEG-TRACE) Urine Glucose (UA) Negative mg/dL (NEG) Urine Ketones (Stick) Trace mg/dL (NEG) Urine Blood Negative (NEG) Urine Nitrite Negative (NEG) Urine Bilirubin Small (NEG) Urine Urobilinogen Dipstick 1.0 mg/dL (0.2 mg/dL) Urine Leukocyte Esterase Negative (NEG) Urine RBC 0 /HPF (0-2) Urine WBC 1-4 /HPF (0-4) Urine Squamous Epithelial Cells Mod /LPF Urine Amorphous Sediment Present /HPF Urine Bacteria 0 /HPF (0-FEW) Urine Mucus Slight /LPF Sodium Level 140 mmol/L (136-145) Potassium Level 4.0 mmol/L (3.5-5.1) Chloride Level 104 mmol/L (98-107) Carbon Dioxide Level 21 mmol/L (21-32) Anion Gap 15 (6-14) Blood Urea Nitrogen 24 mg/dL (7-20) Creatinine 1.2 mg/dL (0.6-1.0) Estimated GFR (Cockcroft-Gault) 54.4 BUN/Creatinine Ratio 20 (6-20) Glucose Level 65 mg/dL (70-99) Lactic Acid Level 1.7 mmol/L (0.4-2.0) Calcium Level 9.2 mg/dL (8.5-10.1) Total Bilirubin 0.7 mg/dL (0.2-1.0) Gamma Glutamyl Transpeptidase 54 U/L (5-55) Aspartate Amino Transf (AST/SGOT) 91 U/L (15-37) Alanine Aminotransferase (ALT/SGPT) 36 U/L (14-59) Alkaline Phosphatase 224 U/L (46-116) Ammonia < 10 mcmol/L (11-34) Troponin I Quantitative < 0.017 ng/mL (0.000-0.055) Total Protein 6.4 g/dL (6.4-8.2) Albumin 2.6 g/dL (3.4-5.0) Albumin/Globulin Ratio 0.7 (1.0-1.7) Vitamin B12 Level > 2000 pg/mL (247-911) Thyroid Stimulating Hormone (TSH) 1.380 uIU/mL (0.358-3.74) Free Thyroxine 1.94 ng/dL (0.76-1.46) Urine Opiates Screen Pos (NEG) Urine Methadone Screen Neg (NEG) Urine Barbiturates Neg (NEG) Urine Phencyclidine Screen Neg (NEG) Urine Amphetamine/Methamphetamine Neg (NEG) Urine Benzodiazepines Screen Neg (NEG) Urine Cocaine Screen Neg (NEG) Urine Cannabinoids Screen Neg (NEG) Ethyl Alcohol Level < 10 mg/dL (0-10) Urine Ethyl Alcohol Neg (NEG) Glucose (Fingerstick) 177 mg/dL (70-99) 84 mg/dL (70-99) Test 03/04/20 20:36 03/05/20 07:17 03/05/20 07:55 03/05/20 08:25 Glucose (Fingerstick) 100 mg/dL (70-99) 57 mg/dL (70-99) 193 mg/dL (70-99) Glucose Level 181 mg/dL (70-99) Test 03/05/20 11:58 03/05/20 16:49 03/05/20 20:41 03/06/20 04:04 Glucose (Fingerstick) 103 mg/dL (70-99) 129 mg/dL (70-99) 108 mg/dL (70-99) White Blood Count 5.7 x10^3/uL (4.0-11.0) Red Blood Count 3.51 x10^6/uL (3.50-5.40) Hemoglobin 9.4 g/dL (12.0-15.5) Hematocrit 28.4 % (36.0-47.0) Mean Corpuscular Volume 81 fL (79-100) Mean Corpuscular Hemoglobin 27 pg (25-35) Mean Corpuscular Hemoglobin Concent 33 g/dL (31-37) Red Cell Distribution Width 16.2 % (11.5-14.5) Platelet Count 182 x10^3/uL (140-400) Neutrophils (%) (Auto) 63 % (31-73) Lymphocytes (%) (Auto) 20 % (24-48) Monocytes (%) (Auto) 16 % (0-9) Eosinophils (%) (Auto) 1 % (0-3) Basophils (%) (Auto) 1 % (0-3) Neutrophils # (Auto) 3.6 x10^3/uL (1.8-7.7) Lymphocytes # (Auto) 1.1 x10^3/uL (1.0-4.8) Monocytes # (Auto) 0.9 x10^3/uL (0.0-1.1) Eosinophils # (Auto) 0.0 x10^3/uL (0.0-0.7) Basophils # (Auto) 0.0 x10^3/uL (0.0-0.2) Sodium Level 140 mmol/L (136-145) Potassium Level 3.4 mmol/L (3.5-5.1) Chloride Level 106 mmol/L (98-107) Carbon Dioxide Level 20 mmol/L (21-32) Anion Gap 14 (6-14) Blood Urea Nitrogen 14 mg/dL (7-20) Creatinine 0.9 mg/dL (0.6-1.0) Estimated GFR (Cockcroft-Gault) 75.8 BUN/Creatinine Ratio 16 (6-20) Glucose Level 80 mg/dL (70-99) Calcium Level 8.8 mg/dL (8.5-10.1) Total Bilirubin 0.7 mg/dL (0.2-1.0) Aspartate Amino Transf (AST/SGOT) 81 U/L (15-37) Alanine Aminotransferase (ALT/SGPT) 29 U/L (14-59) Alkaline Phosphatase 189 U/L (46-116) Total Protein 5.6 g/dL (6.4-8.2) Albumin 2.2 g/dL (3.4-5.0) Albumin/Globulin Ratio 0.6 (1.0-1.7) Test 03/06/20 05:34 03/06/20 07:42 Glucose (Fingerstick) 95 mg/dL (70-99) 106 mg/dL (70-99) Laboratory Tests Test 03/05/20 11:58 03/05/20 16:49 03/05/20 20:41 03/06/20 04:04 Glucose (Fingerstick) 103 mg/dL (70-99) 129 mg/dL (70-99) 108 mg/dL (70-99) White Blood Count 5.7 x10^3/uL (4.0-11.0) Red Blood Count 3.51 x10^6/uL (3.50-5.40) Hemoglobin 9.4 g/dL (12.0-15.5) Hematocrit 28.4 % (36.0-47.0) Mean Corpuscular Volume 81 fL (79-100) Mean Corpuscular Hemoglobin 27 pg (25-35) Mean Corpuscular Hemoglobin Concent 33 g/dL (31-37) Red Cell Distribution Width 16.2 % (11.5-14.5) Platelet Count 182 x10^3/uL (140-400) Neutrophils (%) (Auto) 63 % (31-73) Lymphocytes (%) (Auto) 20 % (24-48) Monocytes (%) (Auto) 16 % (0-9) Eosinophils (%) (Auto) 1 % (0-3) Basophils (%) (Auto) 1 % (0-3) Neutrophils # (Auto) 3.6 x10^3/uL (1.8-7.7) Lymphocytes # (Auto) 1.1 x10^3/uL (1.0-4.8) Monocytes # (Auto) 0.9 x10^3/uL (0.0-1.1) Eosinophils # (Auto) 0.0 x10^3/uL (0.0-0.7) Basophils # (Auto) 0.0 x10^3/uL (0.0-0.2) Sodium Level 140 mmol/L (136-145) Potassium Level 3.4 mmol/L (3.5-5.1) Chloride Level 106 mmol/L (98-107) Carbon Dioxide Level 20 mmol/L (21-32) Anion Gap 14 (6-14) Blood Urea Nitrogen 14 mg/dL (7-20) Creatinine 0.9 mg/dL (0.6-1.0) Estimated GFR (Cockcroft-Gault) 75.8 BUN/Creatinine Ratio 16 (6-20) Glucose Level 80 mg/dL (70-99) Calcium Level 8.8 mg/dL (8.5-10.1) Total Bilirubin 0.7 mg/dL (0.2-1.0) Aspartate Amino Transf (AST/SGOT) 81 U/L (15-37) Alanine Aminotransferase (ALT/SGPT) 29 U/L (14-59) Alkaline Phosphatase 189 U/L (46-116) Total Protein 5.6 g/dL (6.4-8.2) Albumin 2.2 g/dL (3.4-5.0) Albumin/Globulin Ratio 0.6 (1.0-1.7) Test 03/06/20 05:34 03/06/20 07:42 Glucose (Fingerstick) 95 mg/dL (70-99) 106 mg/dL (70-99) Images Images Reviewed CT head and CTA head and neck Assessment/Plan Assessment/Plan Assessment: Metastatic colon cancer, on palliative chemotherapy with FOLFOX, last dose on 02/19/2020 Acute encephalopathy History of intracranial aneurysm status post clipping Normocytic anemia Generalized weakness Recommendations: -I would recommend evaluation of acute encephalopathy at this time. Agree with MRI brain as per neurology recommendations -Colorectal cancer has a low likelihood of involvement of W[employer]ISTRATOR -Given nearly 2 weeks from her most recent chemotherapy with FOLFOX on 02/19/2020, would consider it unlikely for her encephalopathy to be related to chemotherapy -Patient has received 2 cycles of chemotherapy for metastatic colon cancer and restaging scans to determine efficacy of chemotherapy have not been performed (planned after 4-6 cycles of chemotherapy) -We will follow along during her hospital course. Reinitiation of systemic therapy for colon cancer may be considered if her encephalopathy and decline in function are considered to be reversible after completion of evaluation -While she does have multiple treatment options available for therapy of her incurable disease, a discussion of goals of care may be reasonable if she experiences a substantial decline in performance status since the potential risks of chemotherapy would then outweigh any potential benefits Thank you for the consult Elia Marcus MD Medical Oncology/Hematology Ph: [phone] BAR MARCUS MD Mar 06, 2020 09:01
[2020-03-06 11:00] VITALS: BP 132/75
[2020-03-06] MEDS: PROCHLORPERAZINE 5 MG TABLET. PO SCH ×2 (12:00→17:09)
--- NOTE | 2020-03-06 12:13 | PDOC ---
[facility] [facility] PROGRESS NOTE Chief Complaint Chief Complaint acute Metabolic encephalopathy, or post-ictal on possible chronic , possible brain mets, seizure disorder, acute seizure History of colon cancer stage IV History of essential hypertension History of cocaine abuse Severe protein calorie malnutrition most likely malignancy associated cachexia History of alcohol abuse as well currently does not seem to be drinking History of Present Illness History of Present Illness 03/06/20 Patient seen and examined Chart reviewed Discussed with RN Waiting on results from today's MRI prior admit here in september for similar consider hospice pt and ot and speech hx of poor sefl care prior Vitals/I&O Vitals/I&O: Vital Signs Date Time Temp Pulse Resp B/P (MAP) Pulse Ox O2 Delivery O2 Flow Rate FiO2 03/06/20 11:00 98.0 64 16 132/75 (94) 95 98.0 03/06/20 08:00 Room Air I & O 03/05/20 03/05/20 03/06/20 15:00 23:00 07:00 Intake Total 0 ml 0 ml 0 ml Balance 0 ml 0 ml 0 ml Physical Exam General: Alert, Cooperative, Other (Not oriented) Heart: Regular rate Abdomen: Normal bowel sounds, Soft Extremities: No clubbing, Normal pulses Skin: No rashes, No significant lesion Labs Labs: Laboratory Tests Test 03/05/20 11:58 03/05/20 16:49 03/05/20 20:41 03/06/20 04:04 Glucose (Fingerstick) 103 mg/dL (70-99) 129 mg/dL (70-99) 108 mg/dL (70-99) White Blood Count 5.7 x10^3/uL (4.0-11.0) Red Blood Count 3.51 x10^6/uL (3.50-5.40) Hemoglobin 9.4 g/dL (12.0-15.5) Hematocrit 28.4 % (36.0-47.0) Mean Corpuscular Volume 81 fL (79-100) Mean Corpuscular Hemoglobin 27 pg (25-35) Mean Corpuscular Hemoglobin Concent 33 g/dL (31-37) Red Cell Distribution Width 16.2 % (11.5-14.5) Platelet Count 182 x10^3/uL (140-400) Neutrophils (%) (Auto) 63 % (31-73) Lymphocytes (%) (Auto) 20 % (24-48) Monocytes (%) (Auto) 16 % (0-9) Eosinophils (%) (Auto) 1 % (0-3) Basophils (%) (Auto) 1 % (0-3) Neutrophils # (Auto) 3.6 x10^3/uL (1.8-7.7) Lymphocytes # (Auto) 1.1 x10^3/uL (1.0-4.8) Monocytes # (Auto) 0.9 x10^3/uL (0.0-1.1) Eosinophils # (Auto) 0.0 x10^3/uL (0.0-0.7) Basophils # (Auto) 0.0 x10^3/uL (0.0-0.2) Sodium Level 140 mmol/L (136-145) Potassium Level 3.4 mmol/L (3.5-5.1) Chloride Level 106 mmol/L (98-107) Carbon Dioxide Level 20 mmol/L (21-32) Anion Gap 14 (6-14) Blood Urea Nitrogen 14 mg/dL (7-20) Creatinine 0.9 mg/dL (0.6-1.0) Estimated GFR (Cockcroft-Gault) 75.8 BUN/Creatinine Ratio 16 (6-20) Glucose Level 80 mg/dL (70-99) Calcium Level 8.8 mg/dL (8.5-10.1) Total Bilirubin 0.7 mg/dL (0.2-1.0) Aspartate Amino Transf (AST/SGOT) 81 U/L (15-37) Alanine Aminotransferase (ALT/SGPT) 29 U/L (14-59) Alkaline Phosphatase 189 U/L (46-116) Total Protein 5.6 g/dL (6.4-8.2) Albumin 2.2 g/dL (3.4-5.0) Albumin/Globulin Ratio 0.6 (1.0-1.7) Test 03/06/20 05:34 03/06/20 07:42 Glucose (Fingerstick) 95 mg/dL (70-99) 106 mg/dL (70-99) Assessment and Plan Assessmemt and Plan Assessment: Acute Metabolic encephalopathy, or post-ictal on possible chronic , possible brain mets, seizure disorder, acute seizure History of colon cancer stage IV History of essential hypertension History of cocaine abuse Severe protein calorie malnutrition most likely malignancy associated cachexia History of alcohol abuse as well currently does not seem to be drinking Head and neck CT: Multifocal severe narrowing of right MCA occlusion on right M3 branch in frontal lobe Enlarged multinodular thyroid Currently on Keppra for seizures Plan: Continue current care Await MRI results Possible aspiration pneumonia, awaiting chest X-ray results Full Code DVT prophylaxis Trend labs Appreciate subspecialist input Comment Review of Relevant I have reviewed the following items remi (where applicable) has been applied. Medications: Current Medications Medications (Trade) Dose Ordered Sig/Zee Route PRN Reason Start Time Stop Time Status Last Admin Dose Admin Enoxaparin Sodium (Lovenox 30mg Syringe) 30 mg Q24H SQ 03/05/20 16:00 03/05/20 19:45 Justicifation of Admission Dx: Justifications for Admission: Justification of Admission Dx: Yes BRYAN SAALZAR III DO Mar 06, 2020 12:13
--- NOTE | 2020-03-06 13:29 | NUR ---
SW following. Discussed with RN, pt is catatonic today, not following, not able to communicate today. Pt's granddaughter, Aldo ([phone]) contacted [facility] to discuss discharge planning. SW received hospice referral, discussed with Dr. Siegel. Dr. Siegel going to speak with family and Dr. Duong. SW will continue to follow.
[2020-03-06] MEDS ORDERED: GADOTERATE 7.5 MMOL/15ML VIAL. IVP ONE (14:15)
[2020-03-06 15:00] VITALS: BP 158/81
--- NOTE | 2020-03-06 15:04 | RAD ---
BRAIN WO/W CONTRAST History:Reason: METS CHECK, HX OF STAGE 4 COLON CANCER, altered mental status. Technique: Multiplanar, multi sequential without and with intravenous contrast MR imaging was performed of the brain. Comparison: CT March 04, 2020. Brain MRI July 16, 2018 Findings: Multiple scattered acute right MCA territory infarcts most prominent within the posterior division involving the right frontal, parietal, occipital and posterior temporal lobes. Postoperative changes right frontal craniotomy for right-sided aneurysm clipping. Extensive encephalomalacia and gliosis within the right anterior inferior frontal lobe. Mild brain parenchymal volume loss. Chronic left frontal infarct. Additional foci of FLAIR hyperintensities within the hemispheric white matter, most often due to chronic microvascular ischemia. Scattered regions of gradient hypointensity within the ventricles and cerebral hemispheres, subarachnoid hemorrhage. Superficial siderosis within the frontal region. Bifrontal dural thickening with enhancement, likely postoperative. Imaged orbits are unremarkable. Imaged paranasal sinuses and mastoid air cells are clear. Impression: 1. Multiple acute right MCA territory infarcts. 2. Postoperative changes aneurysm clipping with right frontal encephalomalacia. 3. Chronic left frontal infarct. FOR INTERNAL CODING PURPOSES Critical result: Findings discussed with patient's nurse at 03/06/2020 3:01 PM. RESULT CODE: (C) Electronically signed by: Daniel Cheek DO (03/06/2020 3:01 PM) [facility]
[2020-03-06] MEDS: ENOXAPARIN 30 MG/0.3 ML SYRINGE. SQ SCH (16:00)
--- NOTE | 2020-03-06 17:06 | PDOC ---
PROGRESS NOTES Assessment 1. Acute right middle cerebral artery stroke, multi-focal. She has previous strokes from her prior aneurysm and surgery. She has had a marked decline on a daily basis. She is currently nonverbal and does not follow commands. She is not swallowing. Her nutritional status is compromised. Her functional status is extremely poor. The MRI also revealed evidence for subarachnoid hemorrhage 2. Metastatic colon cancer for which she has received 2 treatments of chemotherapy. It is not known if she is responding to treatment. She does not have evidence of metastatic disease in the brain on the most recent MRI. She had thickening of her meninges but the radiologist felt this was postoperative as opposed to meningeal carcinomatosis. 3. She is having facial twitching which could potentially be focal seizure except sometimes the twitching is the right eyelid and the left mouth. Plan 1. There was evidence of subarachnoid hemorrhage on the MRI so we cannot use antithrombotics or anticoagulants. We could potentially consider aspirin in 7- 10 days. I have advised the nurse to place SCDs. 2. Her functional status is extremely poor. I feel it would be appropriate to consider palliative care as well as hospice. 3. I will increase the Keppra to see if we can suppress some of this twitching activity which may be seizure. Subjective Nonverbal Objective Vital Signs Date Time Temp Pulse Resp B/P (MAP) Pulse Ox O2 Delivery O2 Flow Rate FiO2 03/06/20 15:00 98.1 65 16 158/81 (106) 95 Room Air 98.1 Intake and Output 03/06/20 07:00 Intake Total 0 ml Balance 0 ml Intake Oral 0 ml # Voids 3 PHYSICAL EXAM She was lying in bed in no acute distress. Her eyes were closed. With noxious stimulation she opened her eyes. She did not look up to command or follow any command. The eyes were conjugate. Oculocephalic reflexes were intact. Pupils reactive to light. She blinks to visual threat and loud clap. There was drooping of the left face. Muscle bulk was diminished throughout. Tone was increased in all extremities. When held in the air she seemed to have slightly better control of the right arm than the left. Nailbed pressure did cause more of a response on the right side than the left. Plantar stimulation cause some withdrawal of the right leg but not the left. Review of Relevant I have reviewed the following items remi (where applicable) has been applied. Labs Laboratory Tests Test 03/04/20 20:36 7/29/20 07:17 03/05/20 07:55 03/05/20 08:25 Glucose (Fingerstick) 100 mg/dL (70-99) 57 mg/dL (70-99) 193 mg/dL (70-99) Glucose Level 181 mg/dL (70-99) Test 03/05/20 11:58 03/05/20 16:49 03/05/20 20:41 03/06/20 04:04 Glucose (Fingerstick) 103 mg/dL (70-99) 129 mg/dL (70-99) 108 mg/dL (70-99) White Blood Count 5.7 x10^3/uL (4.0-11.0) Red Blood Count 3.51 x10^6/uL (3.50-5.40) Hemoglobin 9.4 g/dL (12.0-15.5) Hematocrit 28.4 % (36.0-47.0) Mean Corpuscular Volume 81 fL (79-100) Mean Corpuscular Hemoglobin 27 pg (25-35) Mean Corpuscular Hemoglobin Concent 33 g/dL (31-37) Red Cell Distribution Width 16.2 % (11.5-14.5) Platelet Count 182 x10^3/uL (140-400) Neutrophils (%) (Auto) 63 % (31-73) Lymphocytes (%) (Auto) 20 % (24-48) Monocytes (%) (Auto) 16 % (0-9) Eosinophils (%) (Auto) 1 % (0-3) Basophils (%) (Auto) 1 % (0-3) Neutrophils # (Auto) 3.6 x10^3/uL (1.8-7.7) Lymphocytes # (Auto) 1.1 x10^3/uL (1.0-4.8) Monocytes # (Auto) 0.9 x10^3/uL (0.0-1.1) Eosinophils # (Auto) 0.0 x10^3/uL (0.0-0.7) Basophils # (Auto) 0.0 x10^3/uL (0.0-0.2) Sodium Level 140 mmol/L (136-145) Potassium Level 3.4 mmol/L (3.5-5.1) Chloride Level 106 mmol/L (98-107) Carbon Dioxide Level 20 mmol/L (21-32) Anion Gap 14 (6-14) Blood Urea Nitrogen 14 mg/dL (7-20) Creatinine 0.9 mg/dL (0.6-1.0) Estimated GFR (Cockcroft-Gault) 75.8 BUN/Creatinine Ratio 16 (6-20) Glucose Level 80 mg/dL (70-99) Calcium Level 8.8 mg/dL (8.5-10.1) Total Bilirubin 0.7 mg/dL (0.2-1.0) Aspartate Amino Transf (AST/SGOT) 81 U/L (15-37) Alanine Aminotransferase (ALT/SGPT) 29 U/L (14-59) Alkaline Phosphatase 189 U/L (46-116) Total Protein 5.6 g/dL (6.4-8.2) Albumin 2.2 g/dL (3.4-5.0) Albumin/Globulin Ratio 0.6 (1.0-1.7) Test 03/06/20 05:34 03/06/20 07:42 03/06/20 11:57 03/06/20 16:56 Glucose (Fingerstick) 95 mg/dL (70-99) 106 mg/dL (70-99) 102 mg/dL (70-99) 104 mg/dL (70-99) Laboratory Tests Test 03/05/20 20:41 03/06/20 04:04 03/06/20 05:34 03/06/20 07:42 Glucose (Fingerstick) 108 mg/dL (70-99) 95 mg/dL (70-99) 106 mg/dL (70-99) White Blood Count 5.7 x10^3/uL (4.0-11.0) Red Blood Count 3.51 x10^6/uL (3.50-5.40) Hemoglobin 9.4 g/dL (12.0-15.5) Hematocrit 28.4 % (36.0-47.0) Mean Corpuscular Volume 81 fL (79-100) Mean Corpuscular Hemoglobin 27 pg (25-35) Mean Corpuscular Hemoglobin Concent 33 g/dL (31-37) Red Cell Distribution Width 16.2 % (11.5-14.5) Platelet Count 182 x10^3/uL (140-400) Neutrophils (%) (Auto) 63 % (31-73) Lymphocytes (%) (Auto) 20 % (24-48) Monocytes (%) (Auto) 16 % (0-9) Eosinophils (%) (Auto) 1 % (0-3) Basophils (%) (Auto) 1 % (0-3) Neutrophils # (Auto) 3.6 x10^3/uL (1.8-7.7) Lymphocytes # (Auto) 1.1 x10^3/uL (1.0-4.8) Monocytes # (Auto) 0.9 x10^3/uL (0.0-1.1) Eosinophils # (Auto) 0.0 x10^3/uL (0.0-0.7) Basophils # (Auto) 0.0 x10^3/uL (0.0-0.2) Sodium Level 140 mmol/L (136-145) Potassium Level 3.4 mmol/L (3.5-5.1) Chloride Level 106 mmol/L (98-107) Carbon Dioxide Level 20 mmol/L (21-32) Anion Gap 14 (6-14) Blood Urea Nitrogen 14 mg/dL (7-20) Creatinine 0.9 mg/dL (0.6-1.0) Estimated GFR (Cockcroft-Gault) 75.8 BUN/Creatinine Ratio 16 (6-20) Glucose Level 80 mg/dL (70-99) Calcium Level 8.8 mg/dL (8.5-10.1) Total Bilirubin 0.7 mg/dL (0.2-1.0) Aspartate Amino Transf (AST/SGOT) 81 U/L (15-37) Alanine Aminotransferase (ALT/SGPT) 29 U/L (14-59) Alkaline Phosphatase 189 U/L (46-116) Total Protein 5.6 g/dL (6.4-8.2) Albumin 2.2 g/dL (3.4-5.0) Albumin/Globulin Ratio 0.6 (1.0-1.7) Test 03/06/20 11:57 03/06/20 16:56 Glucose (Fingerstick) 102 mg/dL (70-99) 104 mg/dL (70-99) Microbiology 03/04/20 Blood Culture - Preliminary, Resulted NO GROWTH AFTER 2 DAYS Medications Current Medications Iohexol (Omnipaque 300 Mg/ml) 60 ml 1X ONCE IV Last administered on 03/04/20at 10:59; Start 03/04/20 at 10:45; Stop 03/04/20 at 10:46; Status DC Info (CONTRAST GIVEN -- Rx MONITORING) 1 each PRN DAILY PRN MC SEE COMMENTS; Start 03/04/20 at 10:45; Stop 03/06/20 at 10:44; Status DC Dextrose (Dextrose 50%-Water Syringe) 25 gm 1X ONCE IV Last administered on 03/04/20at 11:07; Start 03/04/20 at 10:45; Stop 03/04/20 at 10:46; Status DC Ceftriaxone Sodium (Rocephin) 1 gm 1X ONCE IVP Last administered on 03/04/20at 11:52; Start 03/04/20 at 12:00; Stop 03/04/20 at 12:01; Status DC Ondansetron HCl (Zofran) 4 mg PRN Q8HRS PRN IV NAUSEA/VOMITING; Start 03/04/20 at 12:15; Stop 03/05/20 at 12:14; Status DC Sodium Chloride 1,000 ml @ 100 mls/hr Q10H IV Last administered on 03/05/20at 06:04; Start 03/04/20 at 12:13; Stop 03/05/20 at 08:13; Status DC Sodium Chloride 1,000 ml @ 100 mls/hr Q10H IV ; Start 03/04/20 at 12:45; Stop 03/05/20 at 19:40; Status DC Ondansetron HCl (Zofran) 4 mg PRN Q4HRS PRN IV NAUSEA/VOMITING; Start 03/04/20 at 12:45 Zolpidem Tartrate (Ambien) 5 mg PRN QHS PRN PO INSOMNIA; Start 03/04/20 at 12:45 Acetaminophen (Tylenol) 650 mg PRN Q4HRS PRN PO TEMP OVER 100.4F OR MILD PAIN; Start 03/04/20 at 12:45 Docusate Sodium (Colace) 100 mg PRN BID PRN PO HARD STOOLS; Start 03/04/20 at 12:45 Albuterol Sulfate (Ventolin Neb Soln) 2.5 mg PRN Q4HRS PRN NEB SHORTNESS OF BREATH; Start 03/04/20 at 12:45 Guaifenesin (Robitussin) 200 mg PRN Q4HRS PRN PO COUGH; Start 03/04/20 at 12:45 Lorazepam (Ativan) 0.5 mg PRN Q4HRS PRN PO ANXIETY / AGITATION; Start 03/04/20 at 12:45 Enoxaparin Sodium (Lovenox 40mg Syringe) 30 mg Q24H SQ Last administered on 03/04/20at 16:03; Start 03/04/20 at 13:00; Stop 03/05/20 at 12:36; Status DC Acetaminophen (Tylenol) 650 mg PRN Q4HRS PRN PO TEMP OVER 100.4F OR MILD PAIN; Start 03/04/20 at 12:45; Status UNV Amlodipine Besylate (Norvasc) 10 mg DAILY PO ; Start 03/04/20 at 14:00 Ferrous Sulfate (Feosol) 325 mg DAILY08 PO ; Start 03/05/20 at 08:00 Hydralazine HCl (Apresoline) 25 mg TID PO ; Start 03/04/20 at 14:00 Hydralazine HCl (Apresoline) 25 mg PRN TID PRN PO HYPERTENSION; Start 03/04/20 at 12:45 Levofloxacin (Levaquin) 500 mg DAILY PO ; Start 03/05/20 at 09:00 Pantoprazole Sodium (Protonix) 40 mg DAILYAC PO ; Start 03/05/20 at 07:30 Thiamine Mononitrate (Vitamin B-1) 100 mg DAILY PO ; Start 03/05/20 at 09:00 Trazodone HCl (Desyrel) 50 mg QHS PO ; Start 03/04/20 at 21:00 Triamterene/HCTZ (Maxzide 37.5/ 25mg) 1 tab DAILY PO ; Start 03/05/20 at 09:00 Ziprasidone (Geodon) 20 mg BID PO ; Start 03/04/20 at 21:00 Cyanocobalamin (Vitamin B-12) 2,500 mcg DAILY PO ; Start 03/05/20 at 09:00 Levetiracetam (Keppra) 500 mg BID PO ; Start 03/04/20 at 21:00; Stop 03/04/20 at 17:48; Status DC Multivitamins (Thera M Plus) 1 tab DAILY PO ; Start 03/05/20 at 09:00 Prochlorperazine Maleate (Compazine) 10 mg Q6HRS PO ; Start 03/04/20 at 13:30 Famotidine (Pepcid) 20 mg DAILY PO ; Start 03/04/20 at 14:00 Vitamin D (Vitamin D3) 1,000 unit DAILY PO ; Start 03/04/20 at 14:00 Aspirin (Aspirin Rectal Supp) 300 mg 1X ONCE ME Last administered on 03/04/20at 16:04; Start 03/04/20 at 14:00; Stop 03/04/20 at 14:01; Status DC Pharmacy Consult (C.diff Med Screen By Rx) 1 each 1X ONCE MC ; Start 03/04/20 at 15:45; Stop 03/04/20 at 15:46; Status UNV Levetiracetam 1000 mg/Dextrose 110 ml @ 440 mls/hr 1X ONCE IV Last administered on 03/04/20at 20:03; Start 03/04/20 at 18:00; Stop 03/04/20 at 18:14; Status DC Levetiracetam 500 mg/Dextrose 105 ml @ 420 mls/hr Q12HR IV Last administered on 03/06/20at 08:15; Start 03/04/20 at 23:30 Dextrose 250 ml @ As Directed STK-MED ONCE IV ; Start 03/05/20 at 07:20; Stop 03/05/20 at 07:20; Status DC Dextrose (Dextrose 50%-Water Syringe) 25 gm STK-MED ONCE IV ; Start 03/05/20 at 07:22; Stop 03/05/20 at 07:23; Status DC Dextrose (Dextrose 50%-Water Syringe) 25 gm 1X ONCE IV Last administered on 03/05/20at 07:32; Start 03/05/20 at 07:30; Stop 03/05/20 at 07:31; Status DC Dextrose/Sodium Chloride 1,000 ml @ 75 mls/hr [id number] IV Last administered on 03/06/20at 05:40; Start 03/05/20 at 08:15 Enoxaparin Sodium (Lovenox 30mg Syringe) 30 mg Q24H SQ Last administered on 03/05/20at 19:45; Start 03/05/20 at 16:00 Gadoterate Meglumine (Dotarem) 9.4 ml 1X ONCE IVP Last administered on 03/06/20at 14:13; Start 03/06/20 at 14:15; Stop 03/06/20 at 14:16; Status DC Active Scripts Active Levaquin (Levofloxacin) 500 Mg Tablet 1 Tab PO DAILY 10 Days Trazodone Hcl 50 Mg Tablet 1 Tab PO QHS Tylenol (Acetaminophen) 325 Mg Tablet 650 Mg PO PRN Q4HRS PRN 10 Days Geodon (Ziprasidone Hcl) 20 Mg Capsule 1 Cap PO BID Triamterene-Hctz 37.5-25 Mg Tb (Triamterene/Hydrochlorothiazid) 1 Each Tablet 1 Tab PO DAILY 30 Days Hydralazine Hcl 25 Mg Tablet 25 Mg PO PRN TID PRN 30 Days For SBP > 150mmHg take as needed 3 times per day Amlodipine Besylate 10 Mg Tablet 10 Mg PO DAILY 30 Days Vitamin B-1 (Thiamine Mononitrate) 100 Mg Tablet 100 Mg PO DAILY 30 Days Reported Compazine (Prochlorperazine Maleate) 10 Mg Tablet 1 Tab PO Q6HRS 7 Days Protonix (Pantoprazole Sodium) 40 Mg Tablet.dr 40 Mg PO DAILYAC Gummi Bear Multivitamin (Multivitamin) 1 Each Tab.chew 1 Each PO DAILY Ferrous Sulfate 325 Mg Tablet 1 Tab PO DAILY Levetiracetam 500 Mg Tab.er.24h 1 Tab PO BID 30 Days Hydralazine Hcl 25 Mg Tablet 1 Tab PO TID [Vitamin D3] 25 Mcg PO DAILY Vitamin B12 (Cyanocobalamin (Vitamin B-12)) 2,500 Mcg Tablet 1 Tab PO DAILY 30 Days Ranitidine Hcl 150 Mg Capsule 1 Cap PO BID Proair Hfa Inhaler (Albuterol Sulfate) 8.5 Gm Hfa.aer.ad 2 Puff IH PRN Q4-6HRS Vitals/I & O Vital Sign - Last 24 Hours 03/05/20 03/05/20 03/05/20 03/06/20 19:00 19:30 23:00 03:00 Temp 98.1 98.0 98.3 98.1 98.0 98.3 Pulse 77 66 63 Resp 18 18 18 B/P (MAP) 144/86 (105) 154/85 (108) 152/80 (104) Pulse Ox 93 94 95 O2 Delivery Room Air Room Air Room Air Room Air 03/06/20 03/06/20 03/06/20 03/06/20 07:00 08:00 11:00 15:00 Temp 98.0 98.0 98.1 98.0 98.0 98.1 Pulse 69 64 65 Resp 18 16 16 B/P (MAP) 147/84 (105) 132/75 (94) 158/81 (106) Pulse Ox 94 95 95 O2 Delivery Room Air Room Air Room Air Intake and Output 03/05/20 03/05/20 03/06/20 15:00 23:00 07:00 Intake Total 0 ml 0 ml 0 ml Balance 0 ml 0 ml 0 ml Justicifation of Admission Dx: Justifications for Admission: Justification of Admission Dx: Yes SHAUNA LOPEZ MD Mar 06, 2020 17:06
[2020-03-06 19:00] VITALS: BP 147/84
[2020-03-06] MEDS: levETIRAcetam 750 MG in IV DEXTROSE 5% 100ML 100 ML IV SCH (21:00)
[2020-03-06] MEDS: traZODone 50 MG TABLET. PO SCH (21:00)
[2020-03-06 23:00] VITALS: BP 153/88
[2020-03-07 03:00] VITALS: BP 137/99
[2020-03-07] MEDS: PROCHLORPERAZINE 5 MG TABLET. PO SCH ×4 (06:00→18:00)
[2020-03-07 07:29] VITALS: BP 142/81
[2020-03-07] MEDS: PANTOPRAZOLE 40 MG TABLET.DR. PO SCH (07:30)
[2020-03-07] MEDS: FERROUS SULFATE 325 MG TABLET. PO SCH (08:00)
[2020-03-07 08:10] LABS: BASO # 0.1 x10^3/uL (0.0-0.2); BASO % 1 % (0-3); EOS # 0.1 x10^3/uL (0.0-0.7); EOS % 1 % (0-3); HEMATOCRIT 29.9 % (36.0-47.0); HEMOGLOBIN 9.8 g/dL (12.0-15.5); LYMPH % 20 % (24-48); MEAN CORPUSCULAR HEMOGLOBIN 27 pg (25-35); MEAN CORPUSCULAR HGB CONC 33 g/dL (31-37); MEAN CORPUSCULAR VOLUME 81 fL (79-100); MONO # 0.8 x10^3/uL (0.0-1.1); MONO % 17 % (0-9); NEUT # 3.1 x10^3/uL (1.8-7.7); NEUT % 61 % (31-73); PLATELET COUNT 202 x10^3/uL (140-400); RED BLOOD COUNT 3.68 x10^6/uL (3.50-5.40); RED CELL DISTRIBUTION WIDTH 16.2 % (11.5-14.5); WHITE BLOOD COUNT 5.1 x10^3/uL (4.0-11.0)
[2020-03-07 08:29] LABS: CALCIUM 8.7 mg/dL (8.5-10.1); CREATININE 0.9 mg/dL (0.6-1.0); GFR 75.8; POTASSIUM 3.1 mmol/L (3.5-5.1)
[2020-03-07] MEDS: TRIAMTERENE/HCTZ 37.5/25MG TABLET. PO SCH (09:00)
[2020-03-07] MEDS: THIAMINE 100 MG TABLET. PO SCH (09:00)
[2020-03-07] MEDS: amLODIPine BESYLATE 10 MG TABLET PO SCH (09:00)
[2020-03-07] MEDS: CYANOCOBALAMIN (VITAMIN B-12) 1,000 MCG TABLET. PO SCH (09:00)
[2020-03-07] MEDS: hydrALAZINE 25 MG TABLET PO SCH ×3 (09:00→21:00)
[2020-03-07] MEDS: MULTIVITAMIN with MINERAL TABLET. PO SCH (09:00)
[2020-03-07] MEDS: CHOLECALCIFEROL (VITAMIN D3) 1,000 UNIT TABLET PO SCH (09:00)
[2020-03-07] MEDS: ZIPRASIDONE 20 MG CAPSULE PO SCH ×2 (09:00→21:00)
[2020-03-07] MEDS: levETIRAcetam 750 MG in IV DEXTROSE 5% 100ML 100 ML IV SCH ×2 (09:00→21:06)
[2020-03-07] MEDS: FAMOTIDINE 20 MG TABLET. PO SCH (09:00)
--- NOTE | 2020-03-07 09:19 | PDOC ---
PROGRESS NOTES Subjective Subjective Taina was seen in follow-up today. She was resting and was not able to provide a history or review of systems. Objective Objective Vital Signs Date Time Temp Pulse Resp B/P (MAP) Pulse Ox O2 Delivery O2 Flow Rate FiO2 03/07/20 07:29 98.5 66 18 142/81 (101) 95 Room Air 98.5 Intake and Output 03/07/20 07:00 Intake Total 0 ml Balance 0 ml Intake Oral 0 ml # Voids 3 # Bowel Movements 1 Physical Exam Abdomen: Normal bowel sounds, Soft Heart: Regular rate General: Other (Somnolent) HEENT: Atraumatic Lungs: Clear to auscultation MUSCULOSKELETAL: No swelling Neck: Supple Neuro: Other Skin: No rashes Diagnosis Problems: (1) CVA (cerebral vascular accident) (2) Metastatic colon cancer to liver Assessment Assessment Assessment: Metastatic colon cancer, on palliative chemotherapy with FOLFOX, last dose on 02/19/2020 Right MCA ischemic stroke Subarachnoid hemorrhage Acute encephalopathy secondary to CVA History of intracranial aneurysm status post clipping Normocytic anemia Generalized weakness Plan Plan of Care Reviewed MRI brain showing acute MCA stroke, likely the reason for her encephalopathy Agree with neurology assessment of her declining performance status Given her ongoing metastatic colorectal cancer, she is unlikely to be able to participate in the rehabilitation efforts required to successfully improve her functional status She has only received 2 cycles of chemotherapy so far and restaging scans to evaluate response to therapy have not been performed yet. However, the risks of continuing systemic chemotherapy to palliate and maintain disease control for colon cancer outweigh any potential benefits at this time I agree with discussion of hospice and will be available to participate in a family meeting to discuss these issues with her family Discussed with DAI Marcus MD Medical Oncology/Hematology Ph: [phone] Comment Review of Relevant I have reviewed the following items remi (where applicable) has been applied. Labs Laboratory Tests Test 03/05/20 11:58 03/05/20 16:49 03/05/20 20:41 03/06/20 04:04 Glucose (Fingerstick) 103 mg/dL (70-99) 129 mg/dL (70-99) 108 mg/dL (70-99) White Blood Count 5.7 x10^3/uL (4.0-11.0) Red Blood Count 3.51 x10^6/uL (3.50-5.40) Hemoglobin 9.4 g/dL (12.0-15.5) Hematocrit 28.4 % (36.0-47.0) Mean Corpuscular Volume 81 fL (79-100) Mean Corpuscular Hemoglobin 27 pg (25-35) Mean Corpuscular Hemoglobin Concent 33 g/dL (31-37) Red Cell Distribution Width 16.2 % (11.5-14.5) Platelet Count 182 x10^3/uL (140-400) Neutrophils (%) (Auto) 63 % (31-73) Lymphocytes (%) (Auto) 20 % (24-48) Monocytes (%) (Auto) 16 % (0-9) Eosinophils (%) (Auto) 1 % (0-3) Basophils (%) (Auto) 1 % (0-3) Neutrophils # (Auto) 3.6 x10^3/uL (1.8-7.7) Lymphocytes # (Auto) 1.1 x10^3/uL (1.0-4.8) Monocytes # (Auto) 0.9 x10^3/uL (0.0-1.1) Eosinophils # (Auto) 0.0 x10^3/uL (0.0-0.7) Basophils # (Auto) 0.0 x10^3/uL (0.0-0.2) Sodium Level 140 mmol/L (136-145) Potassium Level 3.4 mmol/L (3.5-5.1) Chloride Level 106 mmol/L (98-107) Carbon Dioxide Level 20 mmol/L (21-32) Anion Gap 14 (6-14) Blood Urea Nitrogen 14 mg/dL (7-20) Creatinine 0.9 mg/dL (0.6-1.0) Estimated GFR (Cockcroft-Gault) 75.8 BUN/Creatinine Ratio 16 (6-20) Glucose Level 80 mg/dL (70-99) Calcium Level 8.8 mg/dL (8.5-10.1) Total Bilirubin 0.7 mg/dL (0.2-1.0) Aspartate Amino Transf (AST/SGOT) 81 U/L (15-37) Alanine Aminotransferase (ALT/SGPT) 29 U/L (14-59) Alkaline Phosphatase 189 U/L (46-116) Total Protein 5.6 g/dL (6.4-8.2) Albumin 2.2 g/dL (3.4-5.0) Albumin/Globulin Ratio 0.6 (1.0-1.7) Test 03/06/20 05:34 03/06/20 07:42 03/06/20 11:57 03/06/20 16:56 Glucose (Fingerstick) 95 mg/dL (70-99) 106 mg/dL (70-99) 102 mg/dL (70-99) 104 mg/dL (70-99) Test 03/06/20 20:40 03/07/20 07:25 03/07/20 07:48 Glucose (Fingerstick) 95 mg/dL (70-99) 99 mg/dL (70-99) White Blood Count 5.1 x10^3/uL (4.0-11.0) Red Blood Count 3.68 x10^6/uL (3.50-5.40) Hemoglobin 9.8 g/dL (12.0-15.5) Hematocrit 29.9 % (36.0-47.0) Mean Corpuscular Volume 81 fL (79-100) Mean Corpuscular Hemoglobin 27 pg (25-35) Mean Corpuscular Hemoglobin Concent 33 g/dL (31-37) Red Cell Distribution Width 16.2 % (11.5-14.5) Platelet Count 202 x10^3/uL (140-400) Neutrophils (%) (Auto) 61 % (31-73) Lymphocytes (%) (Auto) 20 % (24-48) Monocytes (%) (Auto) 17 % (0-9) Eosinophils (%) (Auto) 1 % (0-3) Basophils (%) (Auto) 1 % (0-3) Neutrophils # (Auto) 3.1 x10^3/uL (1.8-7.7) Lymphocytes # (Auto) 1.0 x10^3/uL (1.0-4.8) Monocytes # (Auto) 0.8 x10^3/uL (0.0-1.1) Eosinophils # (Auto) 0.1 x10^3/uL (0.0-0.7) Basophils # (Auto) 0.1 x10^3/uL (0.0-0.2) Sodium Level 136 mmol/L (136-145) Potassium Level 3.1 mmol/L (3.5-5.1) Chloride Level 104 mmol/L (98-107) Carbon Dioxide Level 19 mmol/L (21-32) Anion Gap 13 (6-14) Blood Urea Nitrogen 11 mg/dL (7-20) Creatinine 0.9 mg/dL (0.6-1.0) Estimated GFR (Cockcroft-Gault) 75.8 Glucose Level 97 mg/dL (70-99) Calcium Level 8.7 mg/dL (8.5-10.1) Laboratory Tests Test 03/06/20 11:57 03/06/20 16:56 03/06/20 20:40 03/07/20 07:25 Glucose (Fingerstick) 102 mg/dL (70-99) 104 mg/dL (70-99) 95 mg/dL (70-99) White Blood Count 5.1 x10^3/uL (4.0-11.0) Red Blood Count 3.68 x10^6/uL (3.50-5.40) Hemoglobin 9.8 g/dL (12.0-15.5) Hematocrit 29.9 % (36.0-47.0) Mean Corpuscular Volume 81 fL (79-100) Mean Corpuscular Hemoglobin 27 pg (25-35) Mean Corpuscular Hemoglobin Concent 33 g/dL (31-37) Red Cell Distribution Width 16.2 % (11.5-14.5) Platelet Count 202 x10^3/uL (140-400) Neutrophils (%) (Auto) 61 % (31-73) Lymphocytes (%) (Auto) 20 % (24-48) Monocytes (%) (Auto) 17 % (0-9) Eosinophils (%) (Auto) 1 % (0-3) Basophils (%) (Auto) 1 % (0-3) Neutrophils # (Auto) 3.1 x10^3/uL (1.8-7.7) Lymphocytes # (Auto) 1.0 x10^3/uL (1.0-4.8) Monocytes # (Auto) 0.8 x10^3/uL (0.0-1.1) Eosinophils # (Auto) 0.1 x10^3/uL (0.0-0.7) Basophils # (Auto) 0.1 x10^3/uL (0.0-0.2) Sodium Level 136 mmol/L (136-145) Potassium Level 3.1 mmol/L (3.5-5.1) Chloride Level 104 mmol/L (98-107) Carbon Dioxide Level 19 mmol/L (21-32) Anion Gap 13 (6-14) Blood Urea Nitrogen 11 mg/dL (7-20) Creatinine 0.9 mg/dL (0.6-1.0) Estimated GFR (Cockcroft-Gault) 75.8 Glucose Level 97 mg/dL (70-99) Calcium Level 8.7 mg/dL (8.5-10.1) Test 03/07/20 07:48 Glucose (Fingerstick) 99 mg/dL (70-99) Microbiology 03/04/20 Blood Culture - Preliminary, Resulted NO GROWTH AFTER 2 DAYS Medications Current Medications Iohexol (Omnipaque 300 Mg/ml) 60 ml 1X ONCE IV Last administered on 03/04/20at 10:59; Start 03/04/20 at 10:45; Stop 03/04/20 at 10:46; Status DC Info (CONTRAST GIVEN -- Rx MONITORING) 1 each PRN DAILY PRN MC SEE COMMENTS; Start 03/04/20 at 10:45; Stop 03/06/20 at 10:44; Status DC Dextrose (Dextrose 50%-Water Syringe) 25 gm 1X ONCE IV Last administered on 03/04/20at 11:07; Start 03/04/20 at 10:45; Stop 03/04/20 at 10:46; Status DC Ceftriaxone Sodium (Rocephin) 1 gm 1X ONCE IVP Last administered on 03/04/20at 11:52; Start 03/04/20 at 12:00; Stop 03/04/20 at 12:01; Status DC Ondansetron HCl (Zofran) 4 mg PRN Q8HRS PRN IV NAUSEA/VOMITING; Start 03/04/20 at 12:15; Stop 03/05/20 at 12:14; Status DC Sodium Chloride 1,000 ml @ 100 mls/hr Q10H IV Last administered on 03/05/20at 06:04; Start 03/04/20 at 12:13; Stop 03/05/20 at 08:13; Status DC Sodium Chloride 1,000 ml @ 100 mls/hr Q10H IV ; Start 03/04/20 at 12:45; Stop 03/05/20 at 19:40; Status DC Ondansetron HCl (Zofran) 4 mg PRN Q4HRS PRN IV NAUSEA/VOMITING; Start 03/04/20 at 12:45 Zolpidem Tartrate (Ambien) 5 mg PRN QHS PRN PO INSOMNIA; Start 03/04/20 at 12:45 Acetaminophen (Tylenol) 650 mg PRN Q4HRS PRN PO TEMP OVER 100.4F OR MILD PAIN; Start 03/04/20 at 12:45 Docusate Sodium (Colace) 100 mg PRN BID PRN PO HARD STOOLS; Start 03/04/20 at 12:45 Albuterol Sulfate (Ventolin Neb Soln) 2.5 mg PRN Q4HRS PRN NEB SHORTNESS OF BREATH; Start 03/04/20 at 12:45 Guaifenesin (Robitussin) 200 mg PRN Q4HRS PRN PO COUGH; Start 03/04/20 at 12:45 Lorazepam (Ativan) 0.5 mg PRN Q4HRS PRN PO ANXIETY / AGITATION; Start 03/04/20 at 12:45 Enoxaparin Sodium (Lovenox 40mg Syringe) 30 mg Q24H SQ Last administered on 03/04/20at 16:03; Start 03/04/20 at 13:00; Stop 03/05/20 at 12:36; Status DC Acetaminophen (Tylenol) 650 mg PRN Q4HRS PRN PO TEMP OVER 100.4F OR MILD PAIN; Start 03/04/20 at 12:45; Status UNV Amlodipine Besylate (Norvasc) 10 mg DAILY PO ; Start 03/04/20 at 14:00 Ferrous Sulfate (Feosol) 325 mg DAILY08 PO ; Start 03/05/20 at 08:00 Hydralazine HCl (Apresoline) 25 mg TID PO ; Start 03/04/20 at 14:00 Hydralazine HCl (Apresoline) 25 mg PRN TID PRN PO HYPERTENSION; Start 03/04/20 at 12:45 Levofloxacin (Levaquin) 500 mg DAILY PO ; Start 03/05/20 at 09:00 Pantoprazole Sodium (Protonix) 40 mg DAILYAC PO ; Start 03/05/20 at 07:30 Thiamine Mononitrate (Vitamin B-1) 100 mg DAILY PO ; Start 03/05/20 at 09:00 Trazodone HCl (Desyrel) 50 mg QHS PO ; Start 03/04/20 at 21:00 Triamterene/HCTZ (Maxzide 37.5/ 25mg) 1 tab DAILY PO ; Start 03/05/20 at 09:00 Ziprasidone (Geodon) 20 mg BID PO ; Start 03/04/20 at 21:00 Cyanocobalamin (Vitamin B-12) 2,500 mcg DAILY PO ; Start 03/05/20 at 09:00 Levetiracetam (Keppra) 500 mg BID PO ; Start 03/04/20 at 21:00; Stop 03/04/20 at 17:48; Status DC Multivitamins (Thera M Plus) 1 tab DAILY PO ; Start 03/05/20 at 09:00 Prochlorperazine Maleate (Compazine) 10 mg Q6HRS PO ; Start 03/04/20 at 13:30 Famotidine (Pepcid) 20 mg DAILY PO ; Start 03/04/20 at 14:00 Vitamin D (Vitamin D3) 1,000 unit DAILY PO ; Start 03/04/20 at 14:00 Aspirin (Aspirin Rectal Supp) 300 mg 1X ONCE NC Last administered on 03/04/20at 16:04; Start 03/04/20 at 14:00; Stop 03/04/20 at 14:01; Status DC Pharmacy Consult (C.diff Med Screen By Rx) 1 each 1X ONCE MC ; Start 03/04/20 at 15:45; Stop 03/04/20 at 15:46; Status UNV Levetiracetam 1000 mg/Dextrose 110 ml @ 440 mls/hr 1X ONCE IV Last administered on 03/04/20at 20:03; Start 03/04/20 at 18:00; Stop 03/04/20 at 18:14; Status DC Levetiracetam 500 mg/Dextrose 105 ml @ 420 mls/hr Q12HR IV Last administered on 03/06/20at 08:15; Start 03/04/20 at 23:30; Stop 7/30/20 at 17:15; Status DC Dextrose 250 ml @ As Directed STK-MED ONCE IV ; Start 03/05/20 at 07:20; Stop 03/05/20 at 07:20; Status DC Dextrose (Dextrose 50%-Water Syringe) 25 gm STK-MED ONCE IV ; Start 03/05/20 at 07:22; Stop 03/05/20 at 07:23; Status DC Dextrose (Dextrose 50%-Water Syringe) 25 gm 1X ONCE IV Last administered on 03/05/20at 07:32; Start 03/05/20 at 07:30; Stop 03/05/20 at 07:31; Status DC Dextrose/Sodium Chloride 1,000 ml @ 75 mls/hr [id number] IV Last administered on 03/06/20at 21:28; Start 03/05/20 at 08:15 Enoxaparin Sodium (Lovenox 30mg Syringe) 30 mg Q24H SQ Last administered on 03/05/20at 19:45; Start 03/05/20 at 16:00; Stop 03/06/20 at 17:20; Status DC Gadoterate Meglumine (Dotarem) 9.4 ml 1X ONCE IVP Last administered on 03/06/20at 14:13; Start 03/06/20 at 14:15; Stop 03/06/20 at 14:16; Status DC Levetiracetam 750 mg/Dextrose 107.5 ml @ 420 mls/hr Q12HR IV Last administered on 03/06/20at 21:00; Start 03/06/20 at 21:00 Active Scripts Active Levaquin (Levofloxacin) 500 Mg Tablet 1 Tab PO DAILY 10 Days Trazodone Hcl 50 Mg Tablet 1 Tab PO QHS Tylenol (Acetaminophen) 325 Mg Tablet 650 Mg PO PRN Q4HRS PRN 10 Days Geodon (Ziprasidone Hcl) 20 Mg Capsule 1 Cap PO BID Triamterene-Hctz 37.5-25 Mg Tb (Triamterene/Hydrochlorothiazid) 1 Each Tablet 1 Tab PO DAILY 30 Days Hydralazine Hcl 25 Mg Tablet 25 Mg PO PRN TID PRN 30 Days For SBP > 150mmHg take as needed 3 times per day Amlodipine Besylate 10 Mg Tablet 10 Mg PO DAILY 30 Days Vitamin B-1 (Thiamine Mononitrate) 100 Mg Tablet 100 Mg PO DAILY 30 Days Reported Compazine (Prochlorperazine Maleate) 10 Mg Tablet 1 Tab PO Q6HRS 7 Days Protonix (Pantoprazole Sodium) 40 Mg Tablet.dr 40 Mg PO DAILYAC Gummi Bear Multivitamin (Multivitamin) 1 Each Tab.chew 1 Each PO DAILY Ferrous Sulfate 325 Mg Tablet 1 Tab PO DAILY Levetiracetam 500 Mg Tab.er.24h 1 Tab PO BID 30 Days Hydralazine Hcl 25 Mg Tablet 1 Tab PO TID [Vitamin D3] 25 Mcg PO DAILY Vitamin B12 (Cyanocobalamin (Vitamin B-12)) 2,500 Mcg Tablet 1 Tab PO DAILY 30 Days Ranitidine Hcl 150 Mg Capsule 1 Cap PO BID Proair Hfa Inhaler (Albuterol Sulfate) 8.5 Gm Hfa.aer.ad 2 Puff IH PRN Q4-6HRS Vitals/I & O Vital Sign - Last 24 Hours 03/06/20 03/06/20 03/06/20 03/06/20 11:00 15:00 19:00 20:00 Temp 98.0 98.1 98.9 98.0 98.1 98.9 Pulse 64 65 69 Resp 16 16 18 B/P (MAP) 132/75 (94) 158/81 (106) 147/84 (105) Pulse Ox 95 95 94 O2 Delivery Room Air Room Air Room Air 03/06/20 03/06/20 03/07/20 03/07/20 21:00 23:00 03:00 07:29 Temp 98.6 98.1 98.5 98.6 98.1 98.5 Pulse 69 72 75 66 Resp 18 18 18 B/P (MAP) 147/84 153/88 (109) 137/99 (112) 142/81 (101) Pulse Ox 95 94 95 O2 Delivery Room Air Room Air Room Air Intake and Output 03/06/20 03/06/20 03/07/20 15:00 23:00 07:00 Intake Total 0 ml 0 ml Balance 0 ml 0 ml Justicifation of Admission Dx: Justifications for Admission: Justification of Admission Dx: Yes Nutrition Consultation Dietary Evaluation: Recommendations by RD: Dietary education by RD, PPN/TPN Comments: REC diet as tolerated, honor food preferences and offer snacks/ supplements from unit prn. consider nutrition support with agressive care plan. Expected Outcomes/Goals: to be determined Interpretation of weight loss: >1-2% in 1 week Malnutrition Findings: Muscle Mass (Severe): Severe Depletion Weight Status: Underweight BAR MARCUS MD Mar 07, 2020 09:19
[2020-03-07] MEDS: IV DEXTROSE 5 %-0.45 % NACL 1,000 ML IV SCH (10:01)
[2020-03-07 11:18] VITALS: BP 136/82
--- NOTE | 2020-03-07 11:47 | NUR ---
NICOL following. Discussed with RN, and Dr. Duong. Recommendation is hospice. NICOL met with pt and pt's family at bedside - Dr. Duong discussing end of life care and recommendation of hospice. Pt's sister, Anne Marie wants to take pt home with hospice, NICOL and Dr. Duong provided [facility], and [facility] as hospice providers. Anne Marie decided to go with [facility]. NICOL phoned and faxed referral to [facility] (ph: [phone], fax: [phone]), awaiting acceptance decision. Anne Marie was wanting through the weekend to get house set up. Dr. Duong advised we should try to get pt discharged home as soon as we can. [facility] will contact Anne Marie to determine DME needed at home and discuss hospice. NICOL will continue to follow. RN present during conversation. Addendum: 03/07/20 at 1604 by OSIRIS CAMARENA Pt accepted with [facility], equipment will be delivered tomorrow. NICOL confirmed with Anne Marie, plan is for discharge home tomorrow. NICOL completed [employer] form (placed on chart), for RN jewelry department supervisor to fax and arrange time after hearing from pt's sister, Anne Marie. RN notified.
--- NOTE | 2020-03-07 12:13 | SNU/HH DC ---
DISCHARGE ORDERS DISCHARGE INFORMATION: DISCHARGE DATE: Mar 07, 2020 FINAL DIAGNOSIS stroke metastatic colon cancer CONDITION ON DISCHARGE: Guarded CODE STATUS: Code Status: Full HOSPICE: HOSPICE: Yes HOSPICE EVAL & TREAT: Yes POST DISCHARGE ORDERS: ACTIVITY ORDERS: Resume previous activity, Activity as tolerated WEIGHT BEARING STATUS: No restrictions BATHING ORDERS: Shower-keep dressing dry DIET AFTER DISCHARGE: ADA WOUND/INCISION CARE: Keep wound/cast CDI CHECKS AFTER DISCHARGE: CHECKS AFTER DISCHARGE: Check blood press - daily, Check blood sugar, ac/hs FOLLOW-UP: PHYSICIAN FOLLOW-UP: hospice Additional Instructions: will write for morphine and ativan PRN TREATMENT/EQUIPMENT ORDERS: ADAPTIVE EQUIPMENT NEEDED: None, Commode, Front wheeled walker RESPIRATORY EQUIPMENT NEEDED: Oxygen DISCHARGE MEDICATIONS: Home Meds Active Scripts Trazodone Hcl (TRAZODONE HCL) 50 Mg Tablet, 1 TAB PO QHS for SLEEP, #30 TAB 1 Refill Prov:REGINA TRAVIS MD 02/26/20 Acetaminophen (TYLENOL) 325 Mg Tablet, 650 MG PO PRN Q4HRS PRN for TEMP OVER 100.4F OR MILD PAIN for 10 Days, #30 TAB Prov:REGINA TRAVIS MD 02/26/20 Ziprasidone Hcl (GEODON) 20 Mg Capsule, 1 CAP PO BID, #60 CAP 1 Refill Prov:ROE PHELPS MD 09/27/18 Amlodipine Besylate (AMLODIPINE BESYLATE) 10 Mg Tablet, 10 MG PO DAILY for HTN for 30 Days, #30 TAB 2 Refills Prov:ADRIENNE BEAL MD 07/21/18 Reported Medications Prochlorperazine Maleate (Compazine) 10 Mg Tablet, 1 TAB PO Q6HRS for N/V for 7 Days, #28 TAB 0 Refills 02/24/20 Pantoprazole Sodium (PROTONIX ) 40 Mg Tablet.dr, 40 MG PO DAILYAC for GERD, T AB 02/24/20 Levetiracetam (LEVETIRACETAM) 500 Mg Tab.er.24h, 1 TAB PO BID for seizures for 30 Days, #60 TAB 0 Refills 02/01/20 Hydralazine Hcl (HYDRALAZINE HCL) 25 Mg Tablet, 1 TAB PO TID for HTN, #90 TAB 5 Refills 02/01/20 Albuterol Sulfate (PROAIR HFA INHALER) 8.5 Gm Hfa.aer.ad, 2 PUFF IH PRN Q4-6HRS, #1 INHALER 10/03/15 Discontinued Reported Medications Multivitamin (GUMMI BEAR MULTIVITAMIN) 1 Each Tab.chew, 1 EACH PO DAILY for supplement, TAB.CHEW 02/01/20 Ferrous Sulfate (FERROUS SULFATE) 325 Mg Tablet, 1 TAB PO DAILY for supplement, #30 TAB 3 Refills 02/01/20 [Vitamin D3] No Conflict Check, 25 MCG PO DAILY 02/01/20 Cyanocobalamin (Vitamin B-12) (Vitamin B12) 2,500 Mcg Tablet, 1 TAB PO DAILY for supplement for 30 Days, #30 TAB 0 Refills 02/01/20 Ranitidine Hcl (RANITIDINE HCL) 150 Mg Capsule, 1 CAP PO BID, #60 CAP 5 Refills 03/24/18 Discontinued Scripts Levofloxacin (LEVAQUIN) 500 Mg Tablet, 1 TAB PO DAILY for UTI for 10 Days, #10 TAB 0 Refills Prov:REGINA TRAVIS MD 02/26/20 Triamterene/Hydrochlorothiazid (TRIAMTERENE-HCTZ 37.5-25 MG TB) 1 Each Tablet, 1 TAB PO DAILY for HTN for 30 Days, #30 TAB 2 Refills Prov:ADRIENNE BEAL MD 09/26/18 Hydralazine Hcl (HYDRALAZINE HCL) 25 Mg Tablet, 25 MG PO PRN TID PRN for HYPERTENSION, SEE COMMENTS for 30 Days, #90 TAB 2 Refills For SBP > 150mmHg take as needed 3 times per day Prov:ADRIENNE BEAL MD 07/21/18 Thiamine Mononitrate (VITAMIN B-1) 100 Mg Tablet, 100 MG PO DAILY for deficiency for 30 Days, #30 TAB 2 Refills Prov:ADRIENNE BEAL MD 07/21/18 RHINA CERVANTES MD Mar 07, 2020 12:13
[2020-03-07 15:15] VITALS: BP 136/59
[2020-03-07 19:00] VITALS: BP 136/81
--- NOTE | 2020-03-07 20:58 | PDOC ---
PROGRESS NOTES Assessment 1. Acute right middle cerebral artery stroke, multi-focal. She has previous strokes from her prior aneurysm and surgery. She has had a marked decline on a daily basis. She is currently nonverbal and does not follow commands. She is not swallowing. Her nutritional status is compromised. Her functional status is extremely poor. The MRI also revealed evidence for subarachnoid hemorrhage 2. Metastatic colon cancer for which she has received 2 treatments of chemotherapy. It is not known if she is responding to treatment. She does not have evidence of metastatic disease in the brain on the most recent MRI. She had thickening of her meninges but the radiologist felt this was postoperative as opposed to meningeal carcinomatosis. 3. She is having facial twitching which could potentially be focal seizure except sometimes the twitching is the right eyelid and the left mouth. The twitching did not respond to increasing the dose of Keppra. She does not have twitching of arms or legs. This could be hemifacial spasm. Plan 1. There was evidence of subarachnoid hemorrhage on the MRI so we cannot use antithrombotics or anticoagulants. We could potentially consider aspirin in 7-1 0 days. I have advised the nurse to place SCDs. The family however has decided to take her home with hospice. She cannot take anything orally and the shift of care is now towards comfort instead of restorative. 2. Her functional status is extremely poor. The family has decided to take her home with hospice care. I support this decision. 3. I was going to add another anticonvulsant but all of this would have to be intravenous. There is no point to proceed down this pathway as comfort is the primary care. The Keppra will be discontinued upon discharge home. Subjective Nonverbal Objective Vital Signs Date Time Temp Pulse Resp B/P (MAP) Pulse Ox O2 Delivery O2 Flow Rate FiO2 03/07/20 15:15 98.4 79 18 136/59 (84) 94 Room Air 98.4 Intake and Output 03/07/20 07:00 Intake Total 0 ml Balance 0 ml Intake Oral 0 ml # Voids 3 # Bowel Movements 1 PHYSICAL EXAM She was lying with her eyes closed. With stimulation she would briefly open her eyes. She did not follow any command or look up to command. Pupils were symmetric. Oculocephalic reflex was intact. She had rhythmic facial jerking of left eye closure at the same time as contraction of left smile. She did not have any jerking elsewhere. She had spontaneous movement of the right arm but not the left. The left arm was flaccid. She did respond to nailbed pressure by alerting on the right but less so on the left. Review of Relevant I have reviewed the following items remi (where applicable) has been applied. Labs Laboratory Tests Test 03/06/20 04:04 03/06/20 05:34 03/06/20 07:42 03/06/20 11:57 White Blood Count 5.7 x10^3/uL (4.0-11.0) Red Blood Count 3.51 x10^6/uL (3.50-5.40) Hemoglobin 9.4 g/dL (12.0-15.5) Hematocrit 28.4 % (36.0-47.0) Mean Corpuscular Volume 81 fL (79-100) Mean Corpuscular Hemoglobin 27 pg (25-35) Mean Corpuscular Hemoglobin Concent 33 g/dL (31-37) Red Cell Distribution Width 16.2 % (11.5-14.5) Platelet Count 182 x10^3/uL (140-400) Neutrophils (%) (Auto) 63 % (31-73) Lymphocytes (%) (Auto) 20 % (24-48) Monocytes (%) (Auto) 16 % (0-9) Eosinophils (%) (Auto) 1 % (0-3) Basophils (%) (Auto) 1 % (0-3) Neutrophils # (Auto) 3.6 x10^3/uL (1.8-7.7) Lymphocytes # (Auto) 1.1 x10^3/uL (1.0-4.8) Monocytes # (Auto) 0.9 x10^3/uL (0.0-1.1) Eosinophils # (Auto) 0.0 x10^3/uL (0.0-0.7) Basophils # (Auto) 0.0 x10^3/uL (0.0-0.2) Sodium Level 140 mmol/L (136-145) Potassium Level 3.4 mmol/L (3.5-5.1) Chloride Level 106 mmol/L (98-107) Carbon Dioxide Level 20 mmol/L (21-32) Anion Gap 14 (6-14) Blood Urea Nitrogen 14 mg/dL (7-20) Creatinine 0.9 mg/dL (0.6-1.0) Estimated GFR (Cockcroft-Gault) 75.8 BUN/Creatinine Ratio 16 (6-20) Glucose Level 80 mg/dL (70-99) Calcium Level 8.8 mg/dL (8.5-10.1) Total Bilirubin 0.7 mg/dL (0.2-1.0) Aspartate Amino Transf (AST/SGOT) 81 U/L (15-37) Alanine Aminotransferase (ALT/SGPT) 29 U/L (14-59) Alkaline Phosphatase 189 U/L (46-116) Total Protein 5.6 g/dL (6.4-8.2) Albumin 2.2 g/dL (3.4-5.0) Albumin/Globulin Ratio 0.6 (1.0-1.7) Glucose (Fingerstick) 95 mg/dL (70-99) 106 mg/dL (70-99) 102 mg/dL (70-99) Test 03/06/20 16:56 03/06/20 20:40 03/07/20 07:25 03/07/20 07:48 Glucose (Fingerstick) 104 mg/dL (70-99) 95 mg/dL (70-99) 99 mg/dL (70-99) White Blood Count 5.1 x10^3/uL (4.0-11.0) Red Blood Count 3.68 x10^6/uL (3.50-5.40) Hemoglobin 9.8 g/dL (12.0-15.5) Hematocrit 29.9 % (36.0-47.0) Mean Corpuscular Volume 81 fL (79-100) Mean Corpuscular Hemoglobin 27 pg (25-35) Mean Corpuscular Hemoglobin Concent 33 g/dL (31-37) Red Cell Distribution Width 16.2 % (11.5-14.5) Platelet Count 202 x10^3/uL (140-400) Neutrophils (%) (Auto) 61 % (31-73) Lymphocytes (%) (Auto) 20 % (24-48) Monocytes (%) (Auto) 17 % (0-9) Eosinophils (%) (Auto) 1 % (0-3) Basophils (%) (Auto) 1 % (0-3) Neutrophils # (Auto) 3.1 x10^3/uL (1.8-7.7) Lymphocytes # (Auto) 1.0 x10^3/uL (1.0-4.8) Monocytes # (Auto) 0.8 x10^3/uL (0.0-1.1) Eosinophils # (Auto) 0.1 x10^3/uL (0.0-0.7) Basophils # (Auto) 0.1 x10^3/uL (0.0-0.2) Sodium Level 136 mmol/L (136-145) Potassium Level 3.1 mmol/L (3.5-5.1) Chloride Level 104 mmol/L (98-107) Carbon Dioxide Level 19 mmol/L (21-32) Anion Gap 13 (6-14) Blood Urea Nitrogen 11 mg/dL (7-20) Creatinine 0.9 mg/dL (0.6-1.0) Estimated GFR (Cockcroft-Gault) 75.8 Glucose Level 97 mg/dL (70-99) Calcium Level 8.7 mg/dL (8.5-10.1) Test 03/07/20 11:45 03/07/20 17:13 Glucose (Fingerstick) 96 mg/dL (70-99) 89 mg/dL (70-99) Laboratory Tests Test 03/07/20 07:25 03/07/20 07:48 03/07/20 11:45 03/07/20 17:13 White Blood Count 5.1 x10^3/uL (4.0-11.0) Red Blood Count 3.68 x10^6/uL (3.50-5.40) Hemoglobin 9.8 g/dL (12.0-15.5) Hematocrit 29.9 % (36.0-47.0) Mean Corpuscular Volume 81 fL (79-100) Mean Corpuscular Hemoglobin 27 pg (25-35) Mean Corpuscular Hemoglobin Concent 33 g/dL (31-37) Red Cell Distribution Width 16.2 % (11.5-14.5) Platelet Count 202 x10^3/uL (140-400) Neutrophils (%) (Auto) 61 % (31-73) Lymphocytes (%) (Auto) 20 % (24-48) Monocytes (%) (Auto) 17 % (0-9) Eosinophils (%) (Auto) 1 % (0-3) Basophils (%) (Auto) 1 % (0-3) Neutrophils # (Auto) 3.1 x10^3/uL (1.8-7.7) Lymphocytes # (Auto) 1.0 x10^3/uL (1.0-4.8) Monocytes # (Auto) 0.8 x10^3/uL (0.0-1.1) Eosinophils # (Auto) 0.1 x10^3/uL (0.0-0.7) Basophils # (Auto) 0.1 x10^3/uL (0.0-0.2) Sodium Level 136 mmol/L (136-145) Potassium Level 3.1 mmol/L (3.5-5.1) Chloride Level 104 mmol/L (98-107) Carbon Dioxide Level 19 mmol/L (21-32) Anion Gap 13 (6-14) Blood Urea Nitrogen 11 mg/dL (7-20) Creatinine 0.9 mg/dL (0.6-1.0) Estimated GFR (Cockcroft-Gault) 75.8 Glucose Level 97 mg/dL (70-99) Calcium Level 8.7 mg/dL (8.5-10.1) Glucose (Fingerstick) 99 mg/dL (70-99) 96 mg/dL (70-99) 89 mg/dL (70-99) Microbiology 03/04/20 Blood Culture - Preliminary, Resulted NO GROWTH AFTER 3 DAYS Medications Current Medications Iohexol (Omnipaque 300 Mg/ml) 60 ml 1X ONCE IV Last administered on 03/04/20at 10:59; Start 03/04/20 at 10:45; Stop 03/04/20 at 10:46; Status DC Info (CONTRAST GIVEN -- Rx MONITORING) 1 each PRN DAILY PRN MC SEE COMMENTS; Start 03/04/20 at 10:45; Stop 03/06/20 at 10:44; Status DC Dextrose (Dextrose 50%-Water Syringe) 25 gm 1X ONCE IV Last administered on 03/04/20at 11:07; Start 03/04/20 at 10:45; Stop 03/04/20 at 10:46; Status DC Ceftriaxone Sodium (Rocephin) 1 gm 1X ONCE IVP Last administered on 03/04/20at 11:52; Start 03/04/20 at 12:00; Stop 03/04/20 at 12:01; Status DC Ondansetron HCl (Zofran) 4 mg PRN Q8HRS PRN IV NAUSEA/VOMITING; Start 03/04/20 at 12:15; Stop 03/05/20 at 12:14; Status DC Sodium Chloride 1,000 ml @ 100 mls/hr Q10H IV Last administered on 03/05/20at 06:04; Start 03/04/20 at 12:13; Stop 03/05/20 at 08:13; Status DC Sodium Chloride 1,000 ml @ 100 mls/hr Q10H IV ; Start 03/04/20 at 12:45; Stop 03/05/20 at 19:40; Status DC Ondansetron HCl (Zofran) 4 mg PRN Q4HRS PRN IV NAUSEA/VOMITING; Start 03/04/20 at 12:45 Zolpidem Tartrate (Ambien) 5 mg PRN QHS PRN PO INSOMNIA; Start 03/04/20 at 12:45 Acetaminophen (Tylenol) 650 mg PRN Q4HRS PRN PO TEMP OVER 100.4F OR MILD PAIN; Start 03/04/20 at 12:45 Docusate Sodium (Colace) 100 mg PRN BID PRN PO HARD STOOLS; Start 03/04/20 at 12:45 Albuterol Sulfate (Ventolin Neb Soln) 2.5 mg PRN Q4HRS PRN NEB SHORTNESS OF BREATH; Start 03/04/20 at 12:45 Guaifenesin (Robitussin) 200 mg PRN Q4HRS PRN PO COUGH; Start 03/04/20 at 12:45 Lorazepam (Ativan) 0.5 mg PRN Q4HRS PRN PO ANXIETY / AGITATION; Start 03/04/20 at 12:45 Enoxaparin Sodium (Lovenox 40mg Syringe) 30 mg Q24H SQ Last administered on 03/04/20at 16:03; Start 03/04/20 at 13:00; Stop 03/05/20 at 12:36; Status DC Acetaminophen (Tylenol) 650 mg PRN Q4HRS PRN PO TEMP OVER 100.4F OR MILD PAIN; Start 03/04/20 at 12:45; Status UNV Amlodipine Besylate (Norvasc) 10 mg DAILY PO ; Start 03/04/20 at 14:00 Ferrous Sulfate (Feosol) 325 mg DAILY08 PO ; Start 03/05/20 at 08:00 Hydralazine HCl (Apresoline) 25 mg TID PO ; Start 03/04/20 at 14:00 Hydralazine HCl (Apresoline) 25 mg PRN TID PRN PO HYPERTENSION; Start 03/04/20 at 12:45 Levofloxacin (Levaquin) 500 mg DAILY PO ; Start 03/05/20 at 09:00 Pantoprazole Sodium (Protonix) 40 mg DAILYAC PO ; Start 03/05/20 at 07:30 Thiamine Mononitrate (Vitamin B-1) 100 mg DAILY PO ; Start 03/05/20 at 09:00 Trazodone HCl (Desyrel) 50 mg QHS PO ; Start 03/04/20 at 21:00 Triamterene/HCTZ (Maxzide 37.5/ 25mg) 1 tab DAILY PO ; Start 03/05/20 at 09:00 Ziprasidone (Geodon) 20 mg BID PO ; Start 03/04/20 at 21:00 Cyanocobalamin (Vitamin B-12) 2,500 mcg DAILY PO ; Start 03/05/20 at 09:00 Levetiracetam (Keppra) 500 mg BID PO ; Start 03/04/20 at 21:00; Stop 03/04/20 at 17:48; Status DC Multivitamins (Thera M Plus) 1 tab DAILY PO ; Start 03/05/20 at 09:00 Prochlorperazine Maleate (Compazine) 10 mg Q6HRS PO ; Start 03/04/20 at 13:30 Famotidine (Pepcid) 20 mg DAILY PO ; Start 03/04/20 at 14:00 Vitamin D (Vitamin D3) 1,000 unit DAILY PO ; Start 03/04/20 at 14:00 Aspirin (Aspirin Rectal Supp) 300 mg 1X ONCE [place] Last administered on 03/04/20at 16:04; Start 03/04/20 at 14:00; Stop 03/04/20 at 14:01; Status DC Pharmacy Consult (C.diff Med Screen By Rx) 1 each 1X ONCE MC ; Start 03/04/20 at 15:45; Stop 03/04/20 at 15:46; Status UNV Levetiracetam 1000 mg/Dextrose 110 ml @ 440 mls/hr 1X ONCE IV Last administered on 03/04/20at 20:03; Start 03/04/20 at 18:00; Stop 03/04/20 at 18:14; Status DC Levetiracetam 500 mg/Dextrose 105 ml @ 420 mls/hr Q12HR IV Last administered on 03/06/20at 08:15; Start 03/04/20 at 23:30; Stop 03/06/20 at 17:15; Status DC Dextrose 250 ml @ As Directed STK-MED ONCE IV ; Start 03/05/20 at 07:20; Stop 03/05/20 at 07:20; Status DC Dextrose (Dextrose 50%-Water Syringe) 25 gm STK-MED ONCE IV ; Start 03/05/20 at 07:22; Stop 03/05/20 at 07:23; Status DC Dextrose (Dextrose 50%-Water Syringe) 25 gm 1X ONCE IV Last administered on 03/05/20at 07:32; Start 03/05/20 at 07:30; Stop 03/05/20 at 07:31; Status DC Dextrose/Sodium Chloride 1,000 ml @ 75 mls/hr [id number] IV Last administered on 03/07/20at 10:01; Start 03/05/20 at 08:15 Enoxaparin Sodium (Lovenox 30mg Syringe) 30 mg Q24H SQ Last administered on 03/05/20at 19:45; Start 03/05/20 at 16:00; Stop 03/06/20 at 17:20; Status DC Gadoterate Meglumine (Dotarem) 9.4 ml 1X ONCE IVP Last administered on 03/06/20 at 14:13; Start 03/06/20 at 14:15; Stop 03/06/20 at 14:16; Status DC Levetiracetam 750 mg/Dextrose 107.5 ml @ 420 mls/hr Q12HR IV Last administered on 03/07/20at 09:00; Start 03/06/20 at 21:00 Active Scripts Active Trazodone Hcl 50 Mg Tablet 1 Tab PO QHS Tylenol (Acetaminophen) 325 Mg Tablet 650 Mg PO PRN Q4HRS PRN 10 Days Geodon (Ziprasidone Hcl) 20 Mg Capsule 1 Cap PO BID Amlodipine Besylate 10 Mg Tablet 10 Mg PO DAILY 30 Days Reported Compazine (Prochlorperazine Maleate) 10 Mg Tablet 1 Tab PO Q6HRS 7 Days Protonix (Pantoprazole Sodium) 40 Mg Tablet.dr 40 Mg PO DAILYAC Levetiracetam 500 Mg Tab.er.24h 1 Tab PO BID 30 Days Hydralazine Hcl 25 Mg Tablet 1 Tab PO TID Proair Hfa Inhaler (Albuterol Sulfate) 8.5 Gm Hfa.aer.ad 2 Puff IH PRN Q4-6HRS Vitals/I & O Vital Sign - Last 24 Hours 03/06/20 03/06/20 03/07/20 03/07/20 21:00 23:00 03:00 07:29 Temp 98.6 98.1 98.5 98.6 98.1 98.5 Pulse 69 72 75 66 Resp 18 18 18 B/P (MAP) 147/84 153/88 (109) 137/99 (112) 142/81 (101) Pulse Ox 95 94 95 O2 Delivery Room Air Room Air Room Air 03/07/20 03/07/20 03/07/20 03/07/20 08:00 09:00 09:00 11:18 Temp 98.2 98.2 Pulse 72 72 72 Resp 18 B/P (MAP) 136/82 136/82 136/82 (100) Pulse Ox 94 O2 Delivery Room Air Room Air 03/07/20 03/07/20 14:00 15:15 Temp 98.4 98.4 Pulse 79 79 Resp 18 B/P (MAP) 136/59 136/59 (84) Pulse Ox 94 O2 Delivery Room Air Intake and Output 03/06/20 03/06/20 03/07/20 15:00 23:00 07:00 Intake Total 0 ml 0 ml Balance 0 ml 0 ml Justicifation of Admission Dx: Justifications for Admission: Justification of Admission Dx: Yes SHAUNA LOPEZ MD Mar 07, 2020 20:58
[2020-03-07] MEDS: traZODone 50 MG TABLET. PO SCH (21:00)
[2020-03-07 23:00] VITALS: BP 130/77
[2020-03-08] MEDS: IV DEXTROSE 5 %-0.45 % NACL 1,000 ML IV SCH (01:49)
[2020-03-08 03:00] VITALS: BP 128/86
[2020-03-08 04:46] LABS: BASO # 0.1 x10^3/uL (0.0-0.2); BASO % 1 % (0-3); EOS # 0.1 x10^3/uL (0.0-0.7); EOS % 2 % (0-3); HEMATOCRIT 30.3 % (36.0-47.0); HEMOGLOBIN 9.9 g/dL (12.0-15.5); LYMPH % 18 % (24-48); MEAN CORPUSCULAR HEMOGLOBIN 26 pg (25-35); MEAN CORPUSCULAR HGB CONC 33 g/dL (31-37); MEAN CORPUSCULAR VOLUME 80 fL (79-100); MONO % 18 % (0-9); NEUT # 3.3 x10^3/uL (1.8-7.7); NEUT % 61 % (31-73); PLATELET COUNT 219 x10^3/uL (140-400); RED BLOOD COUNT 3.77 x10^6/uL (3.50-5.40); RED CELL DISTRIBUTION WIDTH 16.2 % (11.5-14.5); WHITE BLOOD COUNT 5.4 x10^3/uL (4.0-11.0)
[2020-03-08 05:06] LABS: CALCIUM 8.6 mg/dL (8.5-10.1); GFR 67.1; POTASSIUM 3.4 mmol/L (3.5-5.1)
[2020-03-08] MEDS: PROCHLORPERAZINE 5 MG TABLET. PO SCH ×3 (06:00→12:00)
[2020-03-08 07:00] VITALS: BP 123/78
[2020-03-08] MEDS: PANTOPRAZOLE 40 MG TABLET.DR. PO SCH (07:30)
[2020-03-08] MEDS: FERROUS SULFATE 325 MG TABLET. PO SCH (08:00)
[2020-03-08] MEDS: FAMOTIDINE 20 MG TABLET. PO SCH (09:00)
[2020-03-08] MEDS: CYANOCOBALAMIN (VITAMIN B-12) 1,000 MCG TABLET. PO SCH (09:00)
[2020-03-08] MEDS: THIAMINE 100 MG TABLET. PO SCH (09:00)
[2020-03-08] MEDS: TRIAMTERENE/HCTZ 37.5/25MG TABLET. PO SCH (09:00)
[2020-03-08] MEDS: ZIPRASIDONE 20 MG CAPSULE PO SCH (09:00)
[2020-03-08] MEDS: CHOLECALCIFEROL (VITAMIN D3) 1,000 UNIT TABLET PO SCH (09:00)
[2020-03-08] MEDS: MULTIVITAMIN with MINERAL TABLET. PO SCH (09:00)
[2020-03-08] MEDS: amLODIPine BESYLATE 10 MG TABLET PO SCH (09:00)
[2020-03-08] MEDS: hydrALAZINE 25 MG TABLET PO SCH ×2 (09:00→14:00)
[2020-03-08 11:00] VITALS: BP 135/75
[2020-03-08] MEDS ORDERED: ACETAMINOPHEN 650 MG SUPP.RECT. PR PRN (11:45)
[2020-03-08] MEDS: levETIRAcetam 750 MG in IV DEXTROSE 5% 100ML 100 ML IV SCH (11:48)
--- NOTE | 2020-03-08 11:57 | PDOC ---
[facility] PROGRESS NOTE Chief Complaint Chief Complaint Acute Metabolic encephalopathy, or possibly post-ictal Protein-calorie malnutrition Malignancy-associated cachexia Colon cancer, stage IV Essential hypertension History of cocaine abuse History of alcohol abuse History of Present Illness History of Present Illness 03/08/2020 Patient seen and examined Non-verbal, does not respond to commands Chart reviewed Discussed with card checker with hospice 03/06/20 Patient seen and examined Chart reviewed Discussed with RN Waiting on results from today's MRI Prior admit here in september for similar Consider hospice PT/OT/ST Hx of poor sefl care prior Vitals/I&O Vitals/I&O: Vital Signs Date Time Temp Pulse Resp B/P (MAP) Pulse Ox O2 Delivery O2 Flow Rate FiO2 03/08/20 11:00 100.0 75 20 135/75 (95) 92 Room Air 100.0 I & O 03/07/20 03/07/20 03/08/20 15:00 23:00 07:00 Intake Total 0 ml 107.5 ml 1000 ml Balance 0 ml 107.5 ml 1000 ml Physical Exam General: Other (Somnolent) Heart: Regular rate Abdomen: Normal bowel sounds, Soft Extremities: No clubbing, Normal pulses Skin: No rashes Labs Labs: Laboratory Tests Test 03/07/20 17:13 03/08/20 04:30 03/08/20 07:57 Glucose (Fingerstick) 89 mg/dL (70-99) 96 mg/dL (70-99) White Blood Count 5.4 x10^3/uL (4.0-11.0) Red Blood Count 3.77 x10^6/uL (3.50-5.40) Hemoglobin 9.9 g/dL (12.0-15.5) Hematocrit 30.3 % (36.0-47.0) Mean Corpuscular Volume 80 fL (79-100) Mean Corpuscular Hemoglobin 26 pg (25-35) Mean Corpuscular Hemoglobin Concent 33 g/dL (31-37) Red Cell Distribution Width 16.2 % (11.5-14.5) Platelet Count 219 x10^3/uL (140-400) Neutrophils (%) (Auto) 61 % (31-73) Lymphocytes (%) (Auto) 18 % (24-48) Monocytes (%) (Auto) 18 % (0-9) Eosinophils (%) (Auto) 2 % (0-3) Basophils (%) (Auto) 1 % (0-3) Neutrophils # (Auto) 3.3 x10^3/uL (1.8-7.7) Lymphocytes # (Auto) 1.0 x10^3/uL (1.0-4.8) Monocytes # (Auto) 1.0 x10^3/uL (0.0-1.1) Eosinophils # (Auto) 0.1 x10^3/uL (0.0-0.7) Basophils # (Auto) 0.1 x10^3/uL (0.0-0.2) Sodium Level 136 mmol/L (136-145) Potassium Level 3.4 mmol/L (3.5-5.1) Chloride Level 104 mmol/L (98-107) Carbon Dioxide Level 21 mmol/L (21-32) Anion Gap 11 (6-14) Blood Urea Nitrogen 7 mg/dL (7-20) Creatinine 1.0 mg/dL (0.6-1.0) Estimated GFR (Cockcroft-Gault) 67.1 Glucose Level 100 mg/dL (70-99) Calcium Level 8.6 mg/dL (8.5-10.1) Review of Systems Review of Systems: Pertinent as per HPI, otherwise review of systems is negative. Assessment and Plan Assessmemt and Plan ASSESSMENT Acute Metabolic encephalopathy, or possibly post-ictal Protein-calorie malnutrition Malignancy-associated cachexia Colon cancer, stage IV Essential hypertension History of cocaine abuse History of alcohol abuse PLAN Comfort care Discharge with hospice Continue current medications Comment Review of Relevant I have reviewed the following items remi (where applicable) has been applied. Medications: Current Medications Medications (Trade) Dose Ordered Sig/Zee Route PRN Reason Start Time Stop Time Status Last Admin Dose Admin Levetiracetam 750 mg/Dextrose 107.5 ml @ 420 mls/hr Q12HR IV 03/07/20 21:00 03/07/20 21:06 Justicifation of Admission Dx: Justifications for Admission: Justification of Admission Dx: Yes BRYAN SALAZAR III DO Mar 08, 2020 11:57
--- NOTE | 2020-03-08 13:21 | DS ---
DATE OF DISCHARGE: 03/08/2020 ADMISSION DIAGNOSES: Seizure, metabolic encephalopathy, history of colon cancer with metastasis. DISCHARGE DIAGNOSES: 1. End-stage colon cancer with metastasis (she is being discharged with hospice). 1. Resolving [id number] seizures. CONSULTS: Dr. Rodriguez and Hematology/Oncology. HOSPITAL COURSE: The patient is a pleasant middle-aged female who has colon cancer with mets to the liver and possibly to the brain. Basically, she presented with seizure. She is failing to thrive. We did admit the patient and the above consults were obtained. We got her seizures under control. Clinically, she seems to be stable, but does have a terminal diagnosis. We have arranged for hospice. The patient is going home with hospice. DISPOSITION: Home with hospice. ACTIVITY: As tolerated. DIET: Low sodium. MEDICATIONS: She is on Keppra and p.r.n. Ativan. TOTAL TIME: 34 minutes. BRYAN SALAZAR DO DR: LEONEL/syed JOB#: [id number] / [id number]
[2020-03-08 14:00] VITALS: BP 135/75
[2020-03-08] MEDS ORDERED: HEPARIN PF 500 UNIT/5 ML DISP.SYRIN. IVP ONE (17:00)
--- NOTE | 2020-03-08 18:05 | NUR ---
RN spoke w/ sister, Anne Marie. Equipment has been delivered to home from [facility]. EMS pickup arranged for 1800
--- NOTE | 2020-03-08 18:32 | NUR ---
patient discharged home via EMS. meds returned to patient from pharmacy. pt stable upon dc. nonresponsive, which has been her baseline this visit. IV removed from L forearm, cath intact. R chest port hep locked and de-accessed.
== END 2020-03-08 18:34 | disposition hospice, home (50) | DRG 64 ==
LOC: ER 10:16 → 5 NORTH 12:12 → OBSVTOIN 03-05 13:40
PROVIDERS: ADMIT Internal Medicine; ATTEND Internal Medicine
DX: I63.511 Cerebral infarction due to unspecified occlusion or stenosis of right middle cerebral artery (principal); G93.41 Metabolic encephalopathy; E43 Unspecified severe protein-calorie malnutrition; I60.9 Nontraumatic subarachnoid hemorrhage, unspecified; C18.9 Malignant neoplasm of colon, unspecified; Z68.1 Body mass index [BMI] 19.9 or less, adult; J98.11 Atelectasis; C78.7 Secondary malignant neoplasm of liver and intrahepatic bile duct; C34.90 Malignant neoplasm of unspecified part of unspecified bronchus or lung; G93.49 Other encephalopathy; G81.94 Hemiplegia, unspecified affecting left nondominant side; G40.909 Epilepsy, unspecified, not intractable, without status epilepticus; G93.89 Other specified disorders of brain; E11.649 Type 2 diabetes mellitus with hypoglycemia without coma; K21.9 Gastro-esophageal reflux disease without esophagitis; J45.909 Unspecified asthma, uncomplicated; F17.210 Nicotine dependence, cigarettes, uncomplicated; E04.2 Nontoxic multinodular goiter; D64.9 Anemia, unspecified; I10 Essential (primary) hypertension; M19.90 Unspecified osteoarthritis, unspecified site; Z90.710 Acquired absence of both cervix and uterus; Z90.49 Acquired absence of other specified parts of digestive tract; Z87.440 Personal history of urinary (tract) infections; Z85.038 Personal history of other malignant neoplasm of large intestine; Z86.79 Personal history of other diseases of the circulatory system; Z86.73 Personal history of transient ischemic attack (TIA), and cerebral infarction without residual deficits
CPT/HCPCS: 36415; 70450; 70496; 70498; 70553; 71045; 80048; 80053; 80307; 81001; 82140; 82607; 82947; 82962; 82977; 83605; 84439; 84443; 84484; 85025; 85610; 85730; 87040; 93005; 96374; 96375; 99285; A9575; G0378; G0379; G0480; J0696; J1642; J1650; J1953; J7030; J7042; J7060; Q9967; 92526-GN; 92610-GN; 97530-GP

== ENCOUNTER → 2020-03-04 | Outpatient (CLI) | payer OTHER ==
[2020-02-26 15:40] VITALS: BP 102/66
[2020-03-04 09:37] LABS: BASO % 1 % (0-3); EOS % 0 % (0-3); HEMATOCRIT 30.1 % (36.0-47.0); HEMOGLOBIN 9.9 g/dL (12.0-15.5); LYMPH # 1.1 x10^3/uL (1.0-4.8); LYMPH % 16 % (24-48); MEAN CORPUSCULAR HEMOGLOBIN 27 pg (25-35); MEAN CORPUSCULAR HGB CONC 33 g/dL (31-37); MEAN CORPUSCULAR VOLUME 81 fL (79-100); MONO # 0.8 x10^3/uL (0.0-1.1); MONO % 11 % (0-9); NEUT # 4.9 x10^3/uL (1.8-7.7); NEUT % 72 % (31-73); PLATELET COUNT 171 x10^3/uL (140-400); RED BLOOD COUNT 3.73 x10^6/uL (3.50-5.40); RED CELL DISTRIBUTION WIDTH 16.2 % (11.5-14.5); WHITE BLOOD COUNT 6.8 x10^3/uL (4.0-11.0)
[2020-03-04 09:46] LABS: CALCIUM 9.4 mg/dL (8.5-10.1); CREATININE 1.3 mg/dL (0.6-1.0); GFR 49.6; POTASSIUM 3.9 mmol/L (3.5-5.1)
[2020-03-04 09:52] LABS: ALBUMIN 2.6 g/dL (3.4-5.0); ALBUMIN/GLOBULIN RATIO 0.6 (1.0-1.7); TOTAL BILIRUBIN 0.7 mg/dL (0.2-1.0); TOTAL PROTEIN 6.9 g/dL (6.4-8.2)
== END | disposition home or self-care (01) ==
LOC: ONCLAB 09:27
PROVIDERS: ATTEND Internal Medicine Hematology & Oncology
DX: C18.2 Malignant neoplasm of ascending colon (principal)
CPT/HCPCS: 36415; 80053; 82378; 85025